=== PATIENT | male | born 1940 | race Caucasian/White ===

== ENCOUNTER → 2018-03-09 | Outpatient (CLI) | payer MEDICARE, BC ==
--- NOTE | 2018-03-10 17:33 | MR ---
EXAMINATION TYPE: MR shoulder LT wo con DATE OF EXAM: 03/09/2018 COMPARISON: Outside radiographs 02/11/2018 HISTORY: 77-year-old male with left shoulder pain TECHNIQUE: Multiplanar, multisequence imaging of the left shoulder is performed without contrast. FINDINGS: There is some linear intermediate signal within the intracapsular portion of the long head biceps ten don that could represent interstitial tear or tendinosis. The extracapsular portion remains appropria tely situated along the bicipital groove. Heterogeneity of the subscapularis tendon. The majority of the tendon remains intact. Additional heterogeneous signal both supraspinatus and infraspinatus tendon. There is a full-thickness tear of the mid supraspinatus tendon fibers at the footprint measuring 10 m m long and 11 mm AP. There is fluid interposed within the intervening gap and mild effusion in the donaldson bacromial or subdeltoid bursa as well as a 7 mm loose body within the bursa located below the AC join t level. There is intrasubstance change within the infraspinatus tendon. No significant fatty atrophy of the rotator cuff musculature. There is moderate to severe degenerative joint space narrowing with marginal spurring at the acromial clavicular joint. Inferior spurring mildly encroaches onto the subacromial space. Evaluation of the glenohumeral joint is some degenerative blunting of the superior labrum. There is m [id number] cartilage thinning along the superior humeral head articular surface without signific ant joint effusion. No Hill-Sachs deformity or os acromiale. Bony irregularity at both greater and lesser tuberosities compatible with chronic tendinosis and trac tion-related changes. No suspicious bone marrow replacement. IMPRESSION: 1. Nonretracted full-thickness tear of the mid supraspinatus tendon at the footprint measuring 11 x 1 0 mm. 2. Intrasubstance change involving the infraspinatus tendon and extensive tendinosis of the subscapul mariia tendon. No additional high-grade partial or full-thickness tear is seen. 3. No rotator cuff muscle atrophy. 4. Moderate to severe AC joint OA, mild GH joint OA, and a mild bursal effusion with a small 7 mm sup erior loose body. 4. Small interstitial tear vs tendinosis of the intracapsular long head biceps tendon.
== END | disposition home or self-care (01) ==
LOC: RADMRIMAIN 13:11
PROVIDERS: ATTEND Orthopaedic Surgery
DX: M75.122 Complete rotator cuff tear or rupture of left shoulder, not specified as traumatic (principal); M75.82 Other shoulder lesions, left shoulder; M19.012 Primary osteoarthritis, left shoulder

== ENCOUNTER 2018-04-26 10:04 | Day surgery (SDC) | payer MEDICARE, BC ==
[2018-04-19 15:53] VITALS: BMI 22.4
--- NOTE | 2018-04-25 11:24 | HP ---
HISTORY AND PHYSICAL REASON FOR ADMISSION: Surgery scheduled for 04/26/2018 Cornelius eLvy is a 77-year-old patient seen with progressive left shoulder pain. We discussed treatment options. He elected to proceed with left shoulder arthroscopy. Consent regarding the procedure was obtained. Medical clearance was provided by Dr. Molina. PAST MEDICAL HISTORY: [id number] diabetes. SURGICAL HISTORY: Noncontributory. MEDICATIONS: Metformin, Xarelto. ALLERGIES: None reported. SOCIAL HISTORY: Patient denies current tobacco use. PHYSICAL EXAMINATION: Evaluation of the left shoulder, flexion 90 degrees, abduction 75 degrees, external rotation is 10 degrees with weakness. Tenderness along the anterior lateral acromion rotator cuff insertion site. Impingement sign positive at 80 degrees. Drop-arm sign positive. Distal neurovascular exam intact. RADIOGRAPHS: Left shoulder revealed type 2 anterior acromion acromioclavicular joint osteoarthritis and cystic changes of the greater tuberosity. MRI left shoulder rotator cuff tear, biceps tendinitis, acromioclavicular joint osteoarthritis. IMPRESSION: 1. Left shoulder impingement with rotator cuff tear. 2. Left shoulder acromioclavicular joint osteoarthritis. PLAN: Left shoulder arthroscopy with subacromial decompression, probable arthroscopic rotator cuff repair, probable Zoe procedure, biceps tenotomy and debridement. Surgery scheduled for 04/26/2018 MMODL / IJN: [id number] /
[~2018-04-26 10:04] MED LIST: DEXAMETHASONE SOD PHOSPHATE 10 MG/ML 1 ML VIAL IV ONE; LACTATED RINGERS 1,000 ML IV SCH; MIDAZOLAM 2 MG/2 ML VIAL IV PRN; ONDANSETRON 4 MG/2 ML VIAL IVP ONE; ceFAZolin IN SWFI 2 GM/20 ML SYRINGE IVP ONE
[2018-04-26] MEDS ORDERED: LIDOCAINE 1% 20 ML VIAL (10MG/ML) FOR IV START INTRADERMA ONE (10:38)
[2018-04-26 10:54] LABS: Glucose,Whole Blood 136 mg/dL (75-99)
[2018-04-26] MEDS ORDERED: hydrALAZINE HCL 20 MG/ML 1 ML VIAL ONE (11:19)
[2018-04-26] MEDS ORDERED: PROPOFOL 10 MG/ML 20 ML VIAL IV ONE (11:19)
[2018-04-26] MEDS ORDERED: fentaNYL (PF) 50 MCG/ML 2 ML AMP ONE (11:19)
[2018-04-26] MEDS ORDERED: LIDOCAINE 1% INJ 10MG/ML (20 ML MDV) ONE (11:19)
[2018-04-26] MEDS ORDERED: MIDAZOLAM 2 MG/2 ML VIAL ONE (11:19)
[2018-04-26] MEDS ORDERED: ROPIVACAINE 5 MG/ML 30 ML VIAL ONE (11:19)
[2018-04-26] MEDS ORDERED: ePHEDrine SULFATE/0.9% NACL/PF 50 MG/5 ML SYRINGE IV ONE (11:19)
--- NOTE | 2018-04-26 13:14 | P.OP ---
Date of Procedure: 04/26/18 Preoperative Diagnosis: Left shoulder impingement Postoperative Diagnosis: 1. Left shoulder rotator cuff tear 2. Left shoulder impingement 3. Left shoulder acromioclavicular joint osteoarthritis 4. Left shoulder partial long head biceps tendon tear 5. Left shoulder superior labral tear 6. Left shoulder intra-articular loose body Procedure(s) Performed: 1. Left shoulder arthroscopic rotator cuff repair 2. Left shoulder arthroscopic subacromial decompression 3. Left shoulder arthroscopic Zoe procedure 4. Left shoulder arthroscopic biceps tenotomy 5. Left shoulder arthroscopic debridement labral tear 6. Left shoulder arthroscopic removal loose body Implants: 44.75 Arthrex swivel lock anchors Anesthesia: GETA, regional (Interscalene block) Surgeon: Baljeet Moss [employer] Mechanic #1: Enrique Monet Estimated Blood Loss (ml): 10 Pathology: none sent Condition: stable Disposition: PACU Indications for Procedure: 77-year-old patient seen with progressive left shoulder pain. After having treatment options discussed, he elected to proceed with arthroscopy. Operative Findings: See description of procedure Description of Procedure: Patient underwent an interscalene block by department of anesthesia. The patient was then taken to the operative suite. The patient underwent a general anesthetic by the department of anesthesia. The patient was placed into a lateral position and secured. There was appropriate padding of the bony prominence. Left shoulder was then prepped and draped in normal sterile orthopedic fashion. We placed the extremity in 10 pounds of longitudinal traction. A posterior incision was now made for a posterior working portal site. The trocar and cannula were inserted into the glenohumeral joint. Arthroscopy was initiated. Spinal needle was now inserted anteriorly, to ascertain the anterior working portal site. An incision was now made in that area, a trocar was inserted followed by a probe. There was superficial tearing noted of the superior labrum. There was partial tearing and hyperemia long head biceps tendon. There was no obvious full-thickness rotator cuff tear visualized from glenohumeral side. At this point I noted a loose body. A loose body forceps was introduced and this was removed without difficulty. I performed an arthroscopic biceps tenotomy. I debrided that labral tear down to stable tissue. The residual labrum appeared stable. Instruments were now removed from the glenohumeral joint. Utilizing the posterior working portal site, the trocar and cannula were inserted into the subacromial space. Arthroscopy initiated. I made an incision 2 fingerbreadths lateral to the acromion. I introduced my trocar followed by my ArthroCare ablator. I now began ablating thick subacromial bursal tissue, which exposed the undersurface of the anterior acromion. There was diminished subacromial space. There was a very prominent anterior acromion. A motorized bur was introduced and a subacromial decompression was performed. I also excised some osteophytes off the inferior aspect of the distal clavicle. The AC joint was visualized and noted to be fairly arthritic. The motorized bur was introduced in the anterior portal site and a Zoe procedure was performed without difficulty, decompressing the AC joint nicely. I turned my attention to the rotator cuff. There was a 2.5 cm rotator cuff tear. I debrided the margins getting down to stable tendon tissue. I introduced my motorized bur and abraded the footprint area, getting some petechial bleeding. I now made an accessory portal site off the lateral aspect of the acromion. I punched two holes medial for medial row fixation with the assistance of Hesham GASTON carefully tapping the punch with a mallet as I held the punch and the camera. I now introduced both anchors into the pre-punched holes and Hesham GASTON tapped them with the mallet as I held anchors and the camera. Hesham GASTON now screwed the anchors in place a while I held the anchor guide and camera. All 8 limbs of suture were now passed through good bites of rotator cuff tendon. I now punched 2 holes for lateral row fixation again I held the punch and camera while Hesham GASTON used a mallet to tap in the punch. We now passed sutures through both anchors and individually I introduced the anchors into the pre-punch holes I held the anchor guide in position with one hand holding the camera with the other hand while Hesham GASTON tensioned the sutures and screwed in the anchors one at a time. All residual suture limbs were now clipped. We had good compression of the tendon along the entire footprint. I injected 1 mL Renue intra-articular. Instruments now removed from the portal sites. All portal sites were approximated with nylon suture. Sterile dressings were applied followed by a shoulder immobilizer. Hesham GASTON assisted in this complex case. The patient was awakened, transferred to a bed, and taken to recovery in stable condition.
[2018-04-26 13:21] VITALS: TEMP 98
[2018-04-26 13:31] LABS: Glucose,Whole Blood 166 mg/dL (75-99)
[2018-04-26] MEDS: HYDROmorphone 0.5 MG/0.5 ML SYRINGE IVP PRN ×4 (13:53→14:30)
[2018-04-26] MEDS ORDERED: ONDANSETRON 4 MG/2 ML VIAL IVP ONE (14:03)
[2018-04-26] MEDS: fentaNYL (PF) 50 MCG/ML 2 ML AMP IV ONE ×2 (14:40→14:50)
--- NOTE | 2018-04-26 14:46 | P.ONQ ---
Anesthesiology Proc Note - PNB - Peripheral Nerve Block Performed Left Interscalene Single Time Out Performed: Yes Procedure Start Time: :04 Procedure Stop Time: :07 Indication: Acute Post-Operative Pain, Requested by physician Sedation Type: Sedate with meaningful contact maintained Preparation: Sterile Prep Position: Supine Needle Size: 50mm (2") Needle Gauge: 21 Technique: Ultrasound Injectate: 0.5% Ropivacaine (see comment for volume) (ropi .5% 30cc) Blood Aspirated: No Pain Paresthesia on Injection Noted: No Resistance on Injection: Normal Events: Uneventful and Well Tolerated
[2018-04-26] MEDS ORDERED: METOCLOPRAMIDE 5 MG/ML 2 ML VIAL IVP ONE (15:00)
[2018-04-26 15:23] VITALS: RESP 18
[2018-04-26] MEDS ORDERED: SCOPOLAMINE 1.5MG/72HR PATCH TRANSDERM ONE (15:25)
[2018-04-26 16:52] VITALS: BP 157/69; PULSE 80
== END 2018-04-26 17:35 | disposition home or self-care (01) ==
LOC: OR 10:04
PROVIDERS: ATTEND Orthopaedic Surgery
DX: M75.102 Unspecified rotator cuff tear or rupture of left shoulder, not specified as traumatic (principal); M75.42 Impingement syndrome of left shoulder; M19.012 Primary osteoarthritis, left shoulder; S46.112A Strain of muscle, fascia and tendon of long head of biceps, left arm, initial encounter; X58.XXXA Exposure to other specified factors, initial encounter; S43.432A Superior glenoid labrum lesion of left shoulder, initial encounter; M24.012 Loose body in left shoulder; M25.712 Osteophyte, left shoulder; E11.9 Type 2 diabetes mellitus without complications; Z87.891 Personal history of nicotine dependence; Z79.01 Long term (current) use of anticoagulants; Z79.84 Long term (current) use of oral hypoglycemic drugs; Z79.82 Long term (current) use of aspirin; Z88.5 Allergy status to narcotic agent
CPT/HCPCS: 64415; 29826; 29827; 29824; C1713; C1894; C1765; J2250; J0360; J1100; J2765; J2405; J2001; J3010; J2795; J2704; J1170; J0690

== ENCOUNTER 2018-09-02 16:10 | Inpatient (IN) | payer MEDICARE, BC ==
[2018-09-02] MEDS ORDERED: ASPIRIN 325 MG TAB PO STA (17:25)
[2018-09-02] MEDS ORDERED: NITROGLYCERIN OINT 1 INCH/GM PACKET TOPICAL STA (17:25)
[2018-09-02 17:48] LABS: Basophils % (A) 1 %; Eosinophils # (A) 0.1 k/uL (0-0.7); Eosinophils % (A) 2 %; HCT 42.6 % (39.0-53.0); HGB 14.1 gm/dL (13.0-17.5); Lymphocytes # (A) 1.4 k/uL (1.0-4.8); Lymphocytes % (A) 26 %; MCH 30.9 pg (25.0-35.0); MCHC 33.1 g/dL (31.0-37.0); MCV 93.4 fL (80.0-100.0); Mean Platelet Volume 6.9; Monocytes # (A) 0.4 k/uL (0-1.0); Monocytes % (A) 8 %; Neutrophils # (A) 3.3 k/uL (1.3-7.7); Neutrophils % (A) 61 %; Platelet Count 175 k/uL (150-450); RBC 4.56 m/uL (4.30-5.90); RDW 13.7 % (11.5-15.5); WBC 5.4 k/uL (3.8-10.6)
[2018-09-02 17:49] LABS: INR 1.2 (<1.2); Partial Thromboplastin Time 31.2 sec (22.0-30.0); Prothrombin Time 12.4 sec (9.0-12.0)
--- NOTE | 2018-09-02 17:49 | XR ---
EXAMINATION TYPE: XR chest 2V DATE OF EXAM: 09/02/2018 COMPARISON: NONE HISTORY: Chest pain TECHNIQUE: Frontal and lateral views of the chest are obtained. FINDINGS: Heart is normal. Lungs are clear of consolidation. Costophrenic angles are clear. There is no heart failure. There is no pleural effusion. Bony thorax is intact. IMPRESSION: No active cardiopulmonary disease. Normal heart.
[2018-09-02 17:52] LABS: ALT 23 U/L (21-72); AST 18 U/L (17-59); Albumin 3.4 g/dL (3.5-5.0); Alkaline Phosphatase 33 U/L (38-126); Anion Gap 8 mmol/L; Blood Urea Nitrogen 16 mg/dL (9-20); Calcium 8.2 mg/dL (8.4-10.2); Carbon Dioxide 25 mmol/L (22-30); Chloride 110 mmol/L (98-107); Glucose 124 mg/dL (74-99); Magnesium 1.8 mg/dL (1.6-2.3); Potassium 3.7 mmol/L (3.5-5.1); Sodium 143 mmol/L (137-145); Total Bilirubin 0.3 mg/dL (0.2-1.3); Total Protein 6.1 g/dL (6.3-8.2)
[2018-09-02 17:56] LABS: Creatine Kinase 261 U/L (55-170)
[2018-09-02 18:07] LABS: Creatine Kinase MB 0.7 ng/mL (0.0-2.4); Troponin I <0.012 ng/mL (0.000-0.034)
[2018-09-02] MEDS ORDERED: NALOXONE 0.4 MG/ML 1 ML VIAL IV PRN (18:21)
--- NOTE | 2018-09-02 18:32 | ED ---
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 Pain is exertional, relieved by rest. Is associated with some nausea, no vomiting. Patient states the intensity and frequency is increased over the past week. He was sent in for evaluation and planned heart catheterization tomorrow morning. Patient denies any chest pain at the time my evaluation, no symptoms. He has remote history of tobacco, not currently smoking. No known history of coronary artery disease. - Related Data Home Medications Medication Instructions Recorded Confirmed Rivaroxaban [Xarelto] 20 mg PO AC-LUNCH 03/27/14 09/02/18 metFORMIN HCL 500 mg PO BID 12/11/14 09/02/18 Artificial Tears-Hypromellose 1 - 2 drops BOTH EYES DAILY PRN 09/02/18 09/02/18 [Artificial Tear Drops] Aspirin EC [Ecotrin Low Dose] 81 mg PO AC-LUNCH 09/02/18 09/02/18 Allergies Allergy/AdvReac Type Severity Reaction Status Date / Time codeine AdvReac Nausea & Verified 09/02/18 16:44 Vomiting Review of Systems ROS Statement: Those systems with pertinent positive or pertinent negative responses have been documented in the HPI. ROS Other: All systems not noted in ROS Statement are negative. Past Medical History Past Medical History: Cancer, Diabetes Mellitus, Deep Vein Thrombosis (DVT), Osteoarthritis (OA), Sleep Apnea/CPAP/BIPAP Additional Past Medical History / Comment(s): hx basal cell skin cancer, bone spurs in lt shoulder History of Any Multi-Drug Resistant Organisms: None Reported Past Surgical History: Orthopedic Surgery Additional Past Surgical History / Comment(s): left foot surgery. bilateral cataract surgery. gum surgery. hx. of removal of 3 fungal toenails Past Anesthesia/Blood Transfusion Reactions: No Reported Reaction Past Psychological History: No Psychological Hx Reported Smoking Status: Former smoker - Past Family History Mother Family Medical History: No Reported History General Exam Limitations: no limitations General appearance: alert, in no apparent distress Head exam: Present: atraumatic, normocephalic Eye exam: Present: normal appearance, PERRL ENT exam: Present: normal exam Neck exam: Present: normal inspection. Absent: tenderness, meningismus Respiratory exam: Present: normal lung sounds bilaterally. Absent: respiratory distress, wheezes Cardiovascular Exam: Present: regular rate, normal rhythm GI/Abdominal exam: Present: soft. Absent: distended, tenderness Extremities exam: Present: normal inspection, full ROM, normal capillary refill. Absent: pedal edema Neurological exam: Present: alert, oriented X3 Psychiatric exam: Present: normal affect, normal mood Skin exam: Present: warm, dry, intact. Absent: cyanosis, diaphoretic Course Vital Signs 09/02/18 09/02/18 09/02/18 16:29 17:00 17:26 Temperature 97.5 F L 97.6 F Pulse Rate 61 61 60 Respiratory 18 18 16 Rate Blood Pressure 151/66 143/87 O2 Sat by Pulse 99 99 97 Oximetry 09/02/18 18:00 Temperature Pulse Rate 62 Respiratory 18 Rate Blood Pressure 143/87 O2 Sat by Pulse 97 Oximetry EKG Findings - EKG Comments: EKG Findings:: EKG: Normal sinus rhythm, rate is 60, TX interval 172, QRS duration 110, QTC 400, no ST segment elevation, there is biphasic T wave in V2. T wave inversion in aVL. Medical Decision Making - Medical Decision Making 77-year-old male presenting with exertional chest pain, sent in from the binder and wrapper packer's office for evaluation and heart cath in the morning. Patient is asymptomatic at the time my evaluation. Laboratory studies reveal normal CBC, normal CMP, negative troponin. He is anticoagulated from his normal home medications for history of DVT. I did speak with Dr. Hood his binder and wrapper packer, recommends Nitropaste, aspirin, and will proceed with heart catheterization in the morning. Patient will be admitted to a monitored bed, serial cardiac enzymes obtained. Case is also discussed with admitting physician who will accept. - Lab Data Result diagrams: 09/02/18 17:19 09/02/18 17:19 Lab Results 09/02/18 09/02/18 09/02/18 Range/Units 17:19 17:19 17:19 WBC 5.4 (3.8-10.6) k/uL RBC 4.56 (4.30-5.90) m/uL Hgb 14.1 (13.0-17.5) gm/dL Hct 42.6 (39.0-53.0) % MCV 93.4 (80.0-100.0) fL MCH 30.9 (25.0-35.0) pg MCHC 33.1 (31.0-37.0) g/dL RDW 13.7 (11.5-15.5) % Plt Count 175 (150-450) k/uL Neutrophils % 61 % Lymphocytes % 26 % Monocytes % 8 % Eosinophils % 2 % Basophils % 1 % Neutrophils # 3.3 (1.3-7.7) k/uL Lymphocytes # 1.4 (1.0-4.8) k/uL Monocytes # 0.4 (0-1.0) k/uL Eosinophils # 0.1 (0-0.7) k/uL Basophils # 0.0 (0-0.2) k/uL PT (9.0-12.0) sec INR (<1.2) APTT (22.0-30.0) sec Sodium 143 (137-145) mmol/L Potassium 3.7 (3.5-5.1) mmol/L Chloride 110 H (98-107) mmol/L Carbon Dioxide 25 (22-30) mmol/L Anion Gap 8 mmol/L BUN 16 (9-20) mg/dL Creatinine 0.77 (0.66-1.25) mg/dL Est GFR (CKD-EPI)AfAm >90 (>60 ml/min/1.73 sqM) Est GFR (CKD-EPI)NonAf 88 (>60 ml/min/1.73 sqM) Glucose 124 H (74-99) mg/dL Calcium 8.2 L (8.4-10.2) mg/dL Magnesium 1.8 (1.6-2.3) mg/dL Total Bilirubin 0.3 (0.2-1.3) mg/dL AST 18 (17-59) U/L ALT 23 (21-72) U/L Alkaline Phosphatase 33 L (38-126) U/L Total Creatine Kinase 261 H (55-170) U/L CK-MB (CK-2) 0.7 (0.0-2.4) ng/mL CK-MB (CK-2) Rel Index 0.3 Troponin I <0.012 (0.000-0.034) ng/mL NT-Pro-B Natriuret Pep pg/mL Total Protein 6.1 L (6.3-8.2) g/dL Albumin 3.4 L (3.5-5.0) g/dL 09/02/18 09/02/18 Range/Units 17:19 17:19 WBC (3.8-10.6) k/uL RBC (4.30-5.90) m/uL Hgb (13.0-17.5) gm/dL Hct (39.0-53.0) % MCV (80.0-100.0) fL MCH (25.0-35.0) pg MCHC (31.0-37.0) g/dL RDW (11.5-15.5) % Plt Count (150-450) k/uL Neutrophils % % Lymphocytes % % Monocytes % % Eosinophils % % Basophils % % Neutrophils # (1.3-7.7) k/uL Lymphocytes # (1.0-4.8) k/uL Monocytes # (0-1.0) k/uL Eosinophils # (0-0.7) k/uL Basophils # (0-0.2) k/uL PT 12.4 H (9.0-12.0) sec INR 1.2 H (<1.2) APTT 31.2 H (22.0-30.0) sec Sodium (137-145) mmol/L Potassium (3.5-5.1) mmol/L Chloride (98-107) mmol/L Carbon Dioxide (22-30) mmol/L Anion Gap mmol/L BUN (9-20) mg/dL Creatinine (0.66-1.25) mg/dL Est GFR (CKD-EPI)AfAm (>60 ml/min/1.73 sqM) Est GFR (CKD-EPI)NonAf (>60 ml/min/1.73 sqM) Glucose (74-99) mg/dL Calcium (8.4-10.2) mg/dL Magnesium (1.6-2.3) mg/dL Total Bilirubin (0.2-1.3) mg/dL AST (17-59) U/L ALT (21-72) U/L Alkaline Phosphatase (38-126) U/L Total Creatine Kinase (55-170) U/L CK-MB (CK-2) (0.0-2.4) ng/mL CK-MB (CK-2) Rel Index Troponin I (0.000-0.034) ng/mL NT-Pro-B Natriuret Pep 79 pg/mL Total Protein (6.3-8.2) g/dL Albumin (3.5-5.0) g/dL Disposition Clinical Impression: Chest pain, Unstable angina pectoris Disposition: ADMITTED IP TO THIS [facility] Condition: Stable Is patient prescribed a controlled substance at d/c from ED?: No Referrals: Herman Molina MD [Primary Care Provider] - 1-2 days Decision to Admit Reason: Admit from EC Decision Date: 09/02/18 Decision Time: 18:31
[2018-09-02] MEDS: 0.9% NACL WITH KCL 20 MEQ/L 1,000 ML IV SCH (21:21)
[2018-09-03 00:19] LABS: Creatine Kinase 221 U/L (55-170)
[2018-09-03 00:30] LABS: Creatine Kinase MB 0.5 ng/mL (0.0-2.4); Troponin I <0.012 ng/mL (0.000-0.034)
[2018-09-03 06:10] LABS: Creatine Kinase 217 U/L (55-170)
[2018-09-03 06:23] LABS: Creatine Kinase MB 0.4 ng/mL (0.0-2.4); Troponin I <0.012 ng/mL (0.000-0.034)
[2018-09-03 06:39] LABS: Glucose,Whole Blood 121 mg/dL (75-99)
[2018-09-03] MEDS ORDERED: LIDOCAINE 1% INJ 10MG/ML (20 ML MDV) ONE (07:19)
[2018-09-03] MEDS ORDERED: fentaNYL (PF) 50 MCG/ML 2 ML AMP ONE (07:46)
[2018-09-03] MEDS ORDERED: MIDAZOLAM 2 MG/2 ML VIAL IV ONE (07:50)
[2018-09-03] MEDS ORDERED: SODIUM CHLORIDE 0.9% 500 ML 500 ML IV ONE (07:50)
[2018-09-03] MEDS ORDERED: LIDOCAINE 1% INJ 10MG/ML (20 ML MDV) SQ ONE (07:52)
[2018-09-03] MEDS ORDERED: IOPAMIDOL-370 125ML BTL INJ ONE (08:14)
[2018-09-03] MEDS ORDERED: IOPAMIDOL-370 50ML BTL INJ ONE (08:14)
[2018-09-03] MEDS ORDERED: RX INFO: IV CONTRAST WAS GIVEN 1 EACH MISC MISCELLANE PRN (08:15)
--- NOTE | 2018-09-03 08:51 | CC ---
CARDIAC CATHETERIZATION REPORT Referring physician is Dr. Molina. INDICATION: Unstable angina. This is a 77-year-old gentleman who presented to my office yesterday complaining of intermittent episodes of precordial chest pressure that was new onset. Had some EKG changes. I admitted him to hospital for unstable angina and advised him to undergo cardiac catheterization. PROCEDURE NOTE: After obtaining informed consent, left heart catheterization and coronary angiogram are performed via the right femoral artery using standard Prasad catheters. The patient tolerated the procedure well without any obvious immediate complications. A femoral angiogram was performed and Angio-Seal will be deployed for hemostasis. Patient received moderate conscious sedation and total sedation time was 16 minutes. FINDINGS: 1. HEMODYNAMICS: Left ventricular end-diastolic pressure is 13 to 14 mm. There is no significant gradient across the aortic valve. 2. LEFT VENTRICULOGRAM: Left ventriculogram is performed in CACERES position and shows normal left ventricular size, wall motion and systolic function with an ejection fraction of 75%. 3. ANGIOGRAPHIC DATA: Left Main Coronary Artery: Left main coronary artery is a normal-sized vessel appears calcified but is free of significant stenosis. Divides into left anterior descending coronary artery and circumflex coronary artery. LAD shows a long segment of stenosis in the ostial portion at its worse it seems to be a 99% stenosis. The vessel seemed to be like a thread right at its origin from the left main. Circumflex coronary artery is a large dominant vessel that shows mild to moderate atherosclerotic plaque in its proximal part. Right coronary artery is a small nondominant vessel and is free of significant disease. CONCLUSIONS: 1. Normal left ventricular systolic function. 2. 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 PLAN: I am going to ask the cardiothoracic surgeon, to evaluate the patient for bypass surgery with DAVE to LAD and the venous graft to the diagonal. I do not believe the circulation is significant enough to be bypassed. I am going to let the surgeon assess the vessel. If the patient is not to undergo bypass surgery on this admission, we will have to resume the Xarelto that he takes for DVT. If he is going to go through it, then I am going to start him on IV heparin. MMODL / IJN: [id number] /
[2018-09-03 08:56] LABS: Cholesterol 130 mg/dL (<200); HDL Cholesterol 35 mg/dL (40-60); LDL Cholesterol,Calculated 81 mg/dL (0-99); Triglycerides 72 mg/dL (<150)
[2018-09-03] MEDS ORDERED: ASPIRIN 325 MG TAB PO SCH (09:00)
[2018-09-03] MEDS: LISINOPRIL 10 MG TAB PO SCH (10:52)
[2018-09-03] MEDS: ATORVASTATIN 80 MG TAB PO SCH (10:52)
[2018-09-03] MEDS: METOPROLOL SUCCINATE (ER) 25 MG TAB.ER.24H PO SCH (10:52)
--- NOTE | 2018-09-03 11:12 | ECHOF ---
Referral Reason: MEASUREMENTS -------- HEIGHT: 177.8 cm WEIGHT: 74.4 kg BP: 164/84 IVSd: 1.0 cm (0.6 - 1.1) LVIDd: 3.7 cm (3.9 - 5.3) LVPWd: 1.4 cm (0.6 - 1.1) IVSs: 1.7 cm LVIDs: 1.7 cm LVPWs: 2.0 cm IVSd: 3.2 cm (0.6 - 1.1) LVIDd: 0.0 cm (3.9 - 5.3) EDV(Teich): 0 ml Ao Diam: 2.7 cm (2.0 - 3.7) AV Cusp: 2.3 cm (1.5 - 2.6) LA Diam: 3.0 cm (2.7 - 3.8) MV EXCURSION: 12.842 mm (> 18.000) MV EF SLOPE: 87 mm/s (70 - 150) EPSS: 0.6 cm MV E Deacon: 0.80 m/s MV DecT: 170 ms MV A Deacon: 0.80 m/s MV E/A Ratio: 1.00 RAP: 5.00 mmHg RVSP: 6.37 mmHg FINDINGS -------- Sinus rhythm. This was a technically good study. The left ventricular size is normal. There is borderline concentric left ventricular hypertrophy. Overall left ventricular systolic function is normal with, an EF between 55 - 60 %. The right ventricle is normal in size and function. The left atrium is normal in size. The right atrium is normal in size. The aortic valve is trileaflet and appears structurally normal. The mitral valve is normal. There is trace mitral regurgitation. Trace tricuspid regurgitation present. The right ventricular systolic pressure, as measured by Dopp ler, is 6.37mmHg. Pulmonic valve appears structurally normal. The aortic root size is normal. Normal inferior vena cava with normal inspiratory collapse consistent with estimated right atrial pre ssure of 5 mmHg. The pericardium is normal. CONCLUSIONS -------- 1. Sinus rhythm. 2. This was a technically good study. 3. The left ventricular size is normal. 4. There is borderline concentric left ventricular hypertrophy. 5. Overall left ventricular systolic function is normal with, an EF between 55 - 60 %. 6. The right ventricle is normal in size and function. 7. The left atrium is normal in size. 8. The right atrium is normal in size. 9. The aortic valve is trileaflet and appears structurally normal. 10. The mitral valve is normal. 11. There is trace mitral regurgitation. 12. Trace tricuspid regurgitation present. 13. The right ventricular systolic pressure, as measured by Doppler, is 6.37mmHg. 14. Pulmonic valve appears structurally normal. 15. The aortic root size is normal. 16. Normal inferior vena cava with normal inspiratory collapse consistent with estimated right atrial pressure of 5 mmHg. 17. The pericardium is normal. ADMISSIONS SPECIALIST: Suzan Aly RDCS
[2018-09-03] MEDS: MUPIROCIN 2% OINT 22 GM TUBE TOPICAL SCH ×2 (11:17→21:00)
[2018-09-03] MEDS ORDERED: HEPARIN SODIUM,PORCINE 5,000 UNIT/ML 1 ML VIAL IV PRN (11:44)
--- NOTE | 2018-09-03 11:53 | P.GSCN ---
<Suzan Pierre - Last Filed: 09/03/18 11:45> History of Present Illness Consult date: 09/03/18 Reason for Consult: Coronary artery disease, surgical recommendations Requesting physician: Temo Hood History of present illness: This is a 77-year-old gentleman who follows with Dr. Molina on an outpatient basis. He has a previous medical history of diabetes mellitus, skin cancer with removal, DVT left lower extremity in 2012 and right lower extremity in 2013 with by workup by Dr. Serrano and initiation of Xarelto, left rotator cuff repair earlier this year, previous tobacco dependence, family history of early coronary artery disease with father being diagnosed at 52 years old, questionable sleep apnea without official diagnosis, and peripheral vascular disease. Apparently over the previous few weeks he has been experiencing exertional chest pain which he describes is dull pain over the left side of his chest without radiation, associated with nausea but no shortness of breath. These episodes have been appearing more frequently, and the patient states on Thursday he had the worst episode ever. The pain does subside on its own with rest. He had an appointment with a Dr. Hood, relayed his symptoms, an EKG was performed in Dr. Hood's office demonstrating sinus rhythm with T-wave inversions in lead aVL, V1, and V2. He was sent to the emergency room by Dr. Hood with the intention of heart catheterization this morning. He was kept on the observation unit. His heart catheterization demonstrated ostial LAD stenosis 99% with no other significant coronary disease. LV gram was completed demonstrating normal left ventricular function with EF 75%. Dr. Francisco from cardiothoracic surgeon was consulted for surgical recommendations. Review of Systems Review of systems was completed and is negative except as noted in the HPI. - Cardiovascular Reports chest pain - Gastrointestinal Reports nausea Past Medical History Past Medical History: Coronary Artery Disease (CAD), Cancer, Diabetes Mellitus, Deep Vein Thrombosis (DVT), Osteoarthritis (OA), Sleep Apnea/CPAP/BIPAP Additional Past Medical History / Comment(s): hx basal cell skin cancer, bone spurs in lt shoulder History of Any Multi-Drug Resistant Organisms: None Reported Past Surgical History: Orthopedic Surgery Additional Past Surgical History / Comment(s): Rotator Cuff Surgery. left foot surgery. bilateral cataract surgery. gum surgery. hx. of removal of 3 fungal toenails Past Anesthesia/Blood Transfusion Reactions: No Reported Reaction Past Psychological History: No Psychological Hx Reported Smoking Status: Former smoker Past Alcohol Use History: None Reported Additional Past Alcohol Use History / Comment(s): smoker 20 years 1ppd quit age 50 Past Drug Use History: None Reported - Past Family History Mother Additional Family Medical History / Comment(s): Mother of a "blood clot" Father Family Medical History: Coronary Artery Disease (CAD) Medications and Allergies Home Medications Medication Instructions Recorded Confirmed Type Rivaroxaban [Xarelto] 20 mg PO AC-LUNCH 03/27/14 09/02/18 History metFORMIN HCL 500 mg PO BID 12/11/14 09/02/18 History Artificial Tears-Hypromellose 1 - 2 drops BOTH EYES DAILY PRN 09/02/18 09/02/18 History [Artificial Tear Drops] Aspirin EC [Ecotrin Low Dose] 81 mg PO AC-LUNCH 09/02/18 09/02/18 History Allergies Allergy/AdvReac Type Severity Reaction Status Date / Time codeine AdvReac Nausea & Verified 09/02/18 16:44 Vomiting Surgical - Exam Vital Signs Temp Pulse Resp BP Pulse Ox 97.5 F L 61 18 151/66 99 09/02/18 16:29 09/02/18 16:29 09/02/18 16:29 09/02/18 16:29 09/02/18 16:29 - General well developed, well nourished, no distress, no pain - Eyes PERRL, normal ocular movement - ENT no hearing loss - Neck no masses, no bruits, trachea midline - Respiratory Lung sounds clear bilaterally, respirations even/non-labored. Currently on room air with oxygen saturation 97%. No chest wall deformities. - Cardiovascular S1/S2 present, no murmurs. Regular rate and rhythm, normal sinus rhythm on telemetry. Palpable peripheral pulses bilaterally, no edema present, no calf pain or tenderness noted. Positive variscosities. - Abdomen Abdomen: soft, non tender, bowel sounds - Genitourinary deferred - Rectum deferred - Integumentary no rash, no growths - Neurologic normal coordination, normal sensation - Musculoskeletal Equal strength bilaterally normal posture - Psychiatric oriented to time, oriented to person, oriented to place, speech is normal, memory intact Results - Labs 09/02/18 17:19 09/02/18 17:19 Abnormal Lab Results - Last 24 Hours (Table) 09/02/18 09/02/18 09/02/18 Range/Units 17:19 17:19 17:19 PT 12.4 H (9.0-12.0) sec INR 1.2 H (<1.2) APTT 31.2 H (22.0-30.0) sec Chloride 110 H (98-107) mmol/L Glucose 124 H (74-99) mg/dL POC Glucose (mg/dL) (75-99) mg/dL Calcium 8.2 L (8.4-10.2) mg/dL Alkaline Phosphatase 33 L (38-126) U/L Total Creatine Kinase 261 H (55-170) U/L Total Protein 6.1 L (6.3-8.2) g/dL Albumin 3.4 L (3.5-5.0) g/dL HDL Cholesterol (40-60) mg/dL 09/02/18 09/03/18 09/03/18 Range/Units 23:06 05:10 06:35 PT (9.0-12.0) sec INR (<1.2) APTT (22.0-30.0) sec Chloride (98-107) mmol/L Glucose (74-99) mg/dL POC Glucose (mg/dL) 121 H (75-99) mg/dL Calcium (8.4-10.2) mg/dL Alkaline Phosphatase (38-126) U/L Total Creatine Kinase 221 H 217 H (55-170) U/L Total Protein (6.3-8.2) g/dL Albumin (3.5-5.0) g/dL HDL Cholesterol (40-60) mg/dL 09/03/18 Range/Units 08:10 PT (9.0-12.0) sec INR (<1.2) APTT (22.0-30.0) sec Chloride (98-107) mmol/L Glucose (74-99) mg/dL POC Glucose (mg/dL) (75-99) mg/dL Calcium (8.4-10.2) mg/dL Alkaline Phosphatase (38-126) U/L Total Creatine Kinase (55-170) U/L Total Protein (6.3-8.2) g/dL Albumin (3.5-5.0) g/dL HDL Cholesterol 35 L (40-60) mg/dL Diabetes panel 09/02/18 09/03/18 Range/Units 17:19 08:10 Sodium 143 (137-145) mmol/L Potassium 3.7 (3.5-5.1) mmol/L Chloride 110 H (98-107) mmol/L Carbon Dioxide 25 (22-30) mmol/L BUN 16 (9-20) mg/dL Creatinine 0.77 (0.66-1.25) mg/dL Glucose 124 H (74-99) mg/dL Calcium 8.2 L (8.4-10.2) mg/dL AST 18 (17-59) U/L ALT 23 (21-72) U/L Alkaline Phosphatase 33 L (38-126) U/L Total Protein 6.1 L (6.3-8.2) g/dL Albumin 3.4 L (3.5-5.0) g/dL Triglycerides 72 (<150) mg/dL HDL Cholesterol 35 L (40-60) mg/dL Calcium panel 09/02/18 Range/Units 17:19 Calcium 8.2 L (8.4-10.2) mg/dL Albumin 3.4 L (3.5-5.0) g/dL Pituitary panel 09/02/18 Range/Units 17:19 Sodium 143 (137-145) mmol/L Potassium 3.7 (3.5-5.1) mmol/L Chloride 110 H (98-107) mmol/L Carbon Dioxide 25 (22-30) mmol/L BUN 16 (9-20) mg/dL Creatinine 0.77 (0.66-1.25) mg/dL Glucose 124 H (74-99) mg/dL Calcium 8.2 L (8.4-10.2) mg/dL Adrenal panel 09/02/18 Range/Units 17:19 Sodium 143 (137-145) mmol/L Potassium 3.7 (3.5-5.1) mmol/L Chloride 110 H (98-107) mmol/L Carbon Dioxide 25 (22-30) mmol/L BUN 16 (9-20) mg/dL Creatinine 0.77 (0.66-1.25) mg/dL Glucose 124 H (74-99) mg/dL Calcium 8.2 L (8.4-10.2) mg/dL Total Bilirubin 0.3 (0.2-1.3) mg/dL AST 18 (17-59) U/L ALT 23 (21-72) U/L Alkaline Phosphatase 33 L (38-126) U/L Total Protein 6.1 L (6.3-8.2) g/dL Albumin 3.4 L (3.5-5.0) g/dL - Imaging Chest x-ray: report reviewed, image reviewed EKG: image reviewed Additional studies: Heart cath films reviewed Assessment and Plan (1) Coronary artery disease Current Visit: Yes Status: Chronic Code(s): I25.10 - ATHSCL HEART DISEASE OF [place] CORONARY ARTERY W/O ANG PCTRS SNOMED Code(s): 79171898 (2) Diabetes mellitus Current Visit: Yes Status: Chronic Code(s): E11.9 - TYPE 2 DIABETES MELLITUS WITHOUT COMPLICATIONS SNOMED Code(s): 02872944 (3) History of skin cancer Current Visit: No Status: Resolved Code(s): Z85.828 - PERSONAL HISTORY OF OTHER MALIGNANT NEOPLASM OF SKIN SNOMED Code(s): 265746530 (4) DVT (deep venous thrombosis) Current Visit: No Status: Resolved Code(s): I82.409 - ACUTE EMBOLISM AND THOMBOS UNSP DEEP VN UNSP LOWER EXTREMITY SNOMED Code(s): 532972746 (5) Chronic anticoagulation Current Visit: Yes Status: Chronic Code(s): Z79.01 - CORRECTION (CURRENT) USE OF ANTICOAGULANTS SNOMED Code(s): 002725751 (6) Family history of premature CAD Current Visit: Yes Status: Chronic Code(s): Z82.49 - FAMILY HX OF ISCHEM HEART DIS AND OTH DIS OF THE CIRC SYS SNOMED Code(s): 484044450 (7) Tobacco dependence in remission Current Visit: No Status: Resolved Code(s): F17.201 - NICOTINE DEPENDENCE, UNSPECIFIED, IN REMISSION SNOMED Code(s): 857153764 (8) Unstable angina pectoris Current Visit: Yes Status: Acute Code(s): I20.0 - UNSTABLE ANGINA SNOMED Code(s): 6854266 Plan: The patient was seen and examined at the bedside with Dr. Francisco. Chart/ diagnostics including catheterization films were reviewed. We offered the patient coronary artery bypass grafting, the usual perioperative course was discussed in detail with the patient and his , all risks and benefits were explained, all questions were answered, and consent was obtained to proceed with surgery. Preoperative testing was initiated. Recommend continuing aspirin , statin, beta marline therapy. Patient will be kept inpatient to allow for Xarelto metabolism, IV heparin to be initiated per cardiology due to high DVT risk. Our plan is for coronary artery bypass graft surgery on September 08 pending results of preoperative testing. This was discussed in detail with Dr. Hood as well as the patient and his , and all are in agreement. More recommendations to follow. Thank you Dr. Hood for this consult. We look forward to working with you in the care of your patient. Time with Patient: Greater than 30 <Bernardo Francisco - Last Filed: 09/07/18 11:34> Surgical - Exam Vital Signs Temp Pulse Resp BP Pulse Ox 97.5 F L 61 18 151/66 99 09/02/18 16:29 09/02/18 16:29 09/02/18 16:29 09/02/18 16:29 09/02/18 16:29 Results - Labs 09/07/18 06:15 09/07/18 06:15 Abnormal Lab Results - Last 24 Hours (Table) 09/06/18 09/06/18 09/06/18 Range/Units 11:32 14:25 16:44 APTT 94.1 H (22.0-30.0) sec Chloride (98-107) mmol/L Glucose (74-99) mg/dL POC Glucose (mg/dL) 125 H 205 H (75-99) mg/dL Total Protein (6.3-8.2) g/dL Albumin (3.5-5.0) g/dL Crossmatch 09/06/18 09/06/18 09/07/18 Range/Units 20:52 21:43 06:15 APTT 80.2 H (22.0-30.0) sec Chloride (98-107) mmol/L Glucose (74-99) mg/dL POC Glucose (mg/dL) 186 H (75-99) mg/dL Total Protein (6.3-8.2) g/dL Albumin (3.5-5.0) g/dL Crossmatch See Detail 09/07/18 09/07/18 09/07/18 Range/Units 06:15 06:15 06:37 APTT 76.8 H (22.0-30.0) sec Chloride 112 H (98-107) mmol/L Glucose 134 H (74-99) mg/dL POC Glucose (mg/dL) 124 H (75-99) mg/dL Total Protein 6.1 L (6.3-8.2) g/dL Albumin 3.4 L (3.5-5.0) g/dL Crossmatch 09/07/18 Range/Units 11:25 APTT (22.0-30.0) sec Chloride (98-107) mmol/L Glucose (74-99) mg/dL POC Glucose (mg/dL) 120 H (75-99) mg/dL Total Protein (6.3-8.2) g/dL Albumin (3.5-5.0) g/dL Crossmatch Diabetes panel 09/07/18 Range/Units 06:15 Sodium 144 (137-145) mmol/L Potassium 4.0 (3.5-5.1) mmol/L Chloride 112 H (98-107) mmol/L Carbon Dioxide 26 (22-30) mmol/L BUN 10 (9-20) mg/dL Creatinine 0.78 (0.66-1.25) mg/dL Glucose 134 H (74-99) mg/dL Calcium 8.6 (8.4-10.2) mg/dL AST 32 (17-59) U/L ALT 39 (21-72) U/L Alkaline Phosphatase 46 (38-126) U/L Total Protein 6.1 L (6.3-8.2) g/dL Albumin 3.4 L (3.5-5.0) g/dL Calcium panel 09/07/18 Range/Units 06:15 Calcium 8.6 (8.4-10.2) mg/dL Albumin 3.4 L (3.5-5.0) g/dL Pituitary panel 09/07/18 Range/Units 06:15 Sodium 144 (137-145) mmol/L Potassium 4.0 (3.5-5.1) mmol/L Chloride 112 H (98-107) mmol/L Carbon Dioxide 26 (22-30) mmol/L BUN 10 (9-20) mg/dL Creatinine 0.78 (0.66-1.25) mg/dL Glucose 134 H (74-99) mg/dL Calcium 8.6 (8.4-10.2) mg/dL Adrenal panel 09/07/18 Range/Units 06:15 Sodium 144 (137-145) mmol/L Potassium 4.0 (3.5-5.1) mmol/L Chloride 112 H (98-107) mmol/L Carbon Dioxide 26 (22-30) mmol/L BUN 10 (9-20) mg/dL Creatinine 0.78 (0.66-1.25) mg/dL Glucose 134 H (74-99) mg/dL Calcium 8.6 (8.4-10.2) mg/dL Total Bilirubin 0.6 (0.2-1.3) mg/dL AST 32 (17-59) U/L ALT 39 (21-72) U/L Alkaline Phosphatase 46 (38-126) U/L Total Protein 6.1 L (6.3-8.2) g/dL Albumin 3.4 L (3.5-5.0) g/dL Assessment and Plan Plan: The patient was seen and examined. I agree with the above assessment and plan. Patient is a 77-year-old male with a history of multiple medical problems including lower extremity DVT on chronic Xarelto who presented to the emergency department with angina. Cardiac catheterization revealed a tight ostial left anterior descending artery lesion. A coronary artery bypass is recommended. The risks, benefits, and alternatives to this procedure were discussed with the patient. All his questions were answered. Given his symptomatology and history , the decision was made to keep the patient in-house on intravenous heparin and to discontinue the Xarelto. His procedure is scheduled for 09/08/2018.
[2018-09-03 11:56] LABS: Glucose,Whole Blood 170 mg/dL (75-99)
--- NOTE | 2018-09-03 12:00 | P.PN ---
Progress Note - Text Cardiac catheterization performed today reveals evidence of 99% ostial LAD stenosis. Dr. Hood has requted he be seen in consultation by cardiac surgery. Dr. Francisco has seen him and made recommendations for bypass surgery. Considering he is on xarelto they recommend waiting 5 days prior to surgical intervention. Xarelto has been held and heparin infusion initiated due to high risk DVT. He is also initiated on insulin siding scale and metformin has been held. Echocardiogram will be obtained and reviewed. Transfer to cardiac step-down unit for ongoing cardiac monitoring until surgery next week possibly Thursday.
[2018-09-03 12:29] LABS: Appearance,Urine Clear (Clear); Bilirubin,Urine Negative (Negative); Blood,Urine Negative (Negative); Color,Urine Yellow; Glucose,Urine (UA) Negative (Negative); Ketones,Urine Negative (Negative); Leukocyte Esterase,Urine Negative (Negative); Nitrite,Urine Negative (Negative); PH, Urine 6.5 (5.0-8.0); Protein,Urine Negative (Negative); Specific Gravity,Urine 1.036 (1.001-1.035); Urobilinogen,Urine <2.0 mg/dL (<2.0)
[2018-09-03 12:58] LABS: INR 0.9 (<1.2); Partial Thromboplastin Time 24.4 sec (22.0-30.0); Prothrombin Time 9.9 sec (9.0-12.0)
[2018-09-03] MEDS: INSULIN ASPART 100 UNIT/ML 1 ML 10 ML VIAL SQ SCH ×3 (13:12→21:00)
[2018-09-03] MEDS: NITROGLYCERIN OINT 1 INCH/GM PACKET TOPICAL SCH ×3 (13:12→23:39)
--- NOTE | 2018-09-03 13:25 | US ---
EXAMINATION TYPE: US carotid duplex BILAT DATE OF EXAM: 09/03/2018 COMPARISON: NONE CLINICAL HISTORY: preop cabg. Pre op cardiac surgery EXAM MEASUREMENTS: RIGHT: Peak Systolic Velocity (PSV) cm/sec ----- Right CCA: 74.3 ----- Right ICA: 108.2 ----- Right ECA: 148.0 ICA/CCA ratio: 1.5 RIGHT: End Diastole cm/sec ----- Right CCA: 11.7 ----- Right ICA: 20.2 ----- Right ECA: 7.4 LEFT: Peak Systolic Velocity (PSV) cm/sec ----- Left CCA: 70.1 ----- Left ICA: 109.4 ----- Left ECA: 135.0 ICA/CCA ratio: 1.6 LEFT: End Diastole cm/sec ----- Left CCA: 12.0 ----- Left ICA: 21.5 ----- Left ECA: 0.0 VERTEBRALS (direction of flow): Right Vertebral: Antegrade Left Vertebral: Antegrade Rhythm: Normal Bilateral intimal thickening, plaque bilateral bulb and proximal ICA, elevated velocities: proximal r ight ECA and proximal left ECA, no significant stenosis. Some turbulent flow may be within the proximal common carotid artery on the left. IMPRESSION: 1. Atheromatous plaquing and intimal thickening without significant flow-limiting stenosis. Criteria for Assigning % of Stenosis / Diameter reduction (Estimation based on the indirect measurements of the internal carotid artery velocities (ICA PSV). 1. Normal (no stenosis)=ICA PSV < 125 cm/s: ratio < 2.0: ICA EDV<40 cm/s. 2. Less than 50% stenosis=ICA PSV < 125 cm/s: ratio < 2.0: ICA EDV<40 cm/s. 3. 50 to 69% stenosis=ICA PSV of 125 to 230 cm/s: ration 2.0 ? 4.0: ICA EDV 40-100 cm/s. 4. Greater than 70% stenosis to near occlusion= ICA PSV > 230 cm/s: ratio > 4.0: ICA EDV > 100 cm/s. 5. Near occlusion= ICA PSV velocities may be low or undetectable: variable ratio and ICA EDV. 6. Total occlusion=unable to detect flow.
[2018-09-03] MEDS: HEPARIN SOD,PORK IN 0.45% NACL 25,000 UNIT in 0.45% NACL 1 250ML.BAG IV SCH (14:44)
[2018-09-03] MEDS ORDERED: ARTIFICIAL TEARS-HYPROMELLOSE DROPS 15 ML BTL BOTH EYES PRN (15:04)
--- NOTE | 2018-09-03 15:05 | P.HPIM ---
History of Present Illness 77-year-old pleasant gentleman came in with complaints of chest pain pressure- like sensation patient appears to have atypical chest pain because of which patient underwent carotid catheterization which showed significant stenosis of LAD to my ejection fraction of around 740%. Patient is chest pain-free at this time patient denied any fever chills nausea vomiting patient denied any lightheadedness. Because of a significant lesion in LAD cardiology is recommending coronary artery bypass grafting cardio thoracic surgery was consulted patient is presently on IV heparin statin, aspirin lisinopril and a beta marline. Review of Systems REVIEW OF SYSTEMS: CONSTITUTIONAL: No fever, no malaise, no fatigue. HEENT: No recent visual problems or hearing problems. Denied any sore throat. CARDIOVASCULAR: No chest pain, orthopnea, PND, no palpitations, no syncope. PULMONARY: No shortness of breath, no cough, no hemoptysis. GASTROINTESTINAL: No diarrhea, no nausea, no vomiting, no abdominal pain. NEUROLOGICAL: No headaches, no weakness, no numbness. HEMATOLOGICAL: Denies any bleeding or petechiae. GENITOURINARY: Denies any burning micturition, frequency, or urgency. MUSCULOSKELETAL/RHEUMATOLOGICAL: Denies any joint pain, swelling, or any muscle pain. ENDOCRINE: Denies any polyuria or polydipsia. The rest of the 14-point review of systems is negative. Past Medical History Past Medical History: Coronary Artery Disease (CAD), Cancer, Diabetes Mellitus, Deep Vein Thrombosis (DVT), Osteoarthritis (OA), Sleep Apnea/CPAP/BIPAP Additional Past Medical History / Comment(s): hx basal cell skin cancer, bone spurs in lt shoulder History of Any Multi-Drug Resistant Organisms: None Reported Past Surgical History: Orthopedic Surgery Additional Past Surgical History / Comment(s): Rotator Cuff Surgery. left foot surgery. bilateral cataract surgery. gum surgery. hx. of removal of 3 fungal toenails Past Anesthesia/Blood Transfusion Reactions: No Reported Reaction Past Psychological History: No Psychological Hx Reported Smoking Status: Former smoker Past Alcohol Use History: None Reported Additional Past Alcohol Use History / Comment(s): smoker 20 years 1ppd quit age 50 Past Drug Use History: None Reported - Past Family History Mother Family Medical History: No Reported History Additional Family Medical History / Comment(s): Mother of a "blood clot" Father Family Medical History: Coronary Artery Disease (CAD) Medications and Allergies Home Medications Medication Instructions Recorded Confirmed Type Rivaroxaban [Xarelto] 20 mg PO AC-LUNCH 03/27/14 09/02/18 History metFORMIN HCL 500 mg PO BID 12/11/14 09/02/18 History Artificial Tears-Hypromellose 1 - 2 drops BOTH EYES DAILY PRN 09/02/18 09/02/18 History [Artificial Tear Drops] Aspirin EC [Ecotrin Low Dose] 81 mg PO AC-LUNCH 09/02/18 09/02/18 History Allergies Allergy/AdvReac Type Severity Reaction Status Date / Time codeine AdvReac Nausea & Verified 09/02/18 16:44 Vomiting Physical Exam Vitals: Vital Signs Temp Pulse Pulse Resp BP BP Pulse Ox 09/03/18 12:00 66 16 09/03/18 11:25 66 163/69 95 09/03/18 10:25 64 161/76 97 09/03/18 09:55 62 155/71 96 09/03/18 09:25 62 167/77 94 L 09/03/18 09:10 70 146/74 95 09/03/18 08:55 70 180/74 95 09/03/18 08:40 97.8 F 55 L 16 149/66 97 09/03/18 08:00 55 L 16 09/03/18 07:15 97.5 F L 56 L 18 119/62 94 L 09/03/18 04:00 61 16 09/03/18 03:53 97.7 F 61 16 132/63 97 09/03/18 00:00 55 L 16 09/02/18 23:35 97.6 F 55 L 16 145/60 98 09/02/18 22:00 64 143/75 96 09/02/18 21:17 66 98 09/02/18 20:00 153/79 09/02/18 19:12 75 16 153/79 98 09/02/18 19:00 64 18 134/68 99 09/02/18 18:00 62 18 143/87 97 09/02/18 17:26 97.6 F 60 16 143/87 97 09/02/18 17:00 61 18 99 09/02/18 16:29 97.5 F L 61 18 151/66 99 Intake and Output 09/02/18 09/03/18 09/03/18 22:59 06:59 14:59 Intake Total 400 250 Balance 400 250 Intake: IV 50 Intake, IV Titration 400 Amount 0.9% NaCl with KCl 20 Meq 400 /l 1,000 ml @ 50 mls/hr IV .Q20H [facility] Rx#: [id number] Other 200 Other: Voiding Method Toilet Weight 75.75 kg 74.5 kg PHYSICAL EXAMINATION: GENERAL: The patient is alert and oriented x3, not in any acute distress. Well developed, well nourished. HEENT: Pupils are round and equally reacting to light. EOMI. No scleral icterus. No conjunctival pallor. Normocephalic, atraumatic. No pharyngeal erythema. No thyromegaly. CARDIOVASCULAR: S1 and S2 present. No murmurs, rubs, or gallops. PULMONARY: Chest is clear to auscultation, no wheezing or crackles. ABDOMEN: Soft, nontender, nondistended, normoactive bowel sounds. No palpable organomegaly. MUSCULOSKELETAL: No joint swelling or deformity. EXTREMITIES: No cyanosis, clubbing, or pedal edema. NEUROLOGICAL: Gross neurological examination did not reveal any focal deficits. SKIN: No rashes. Results CBC & Chem 7: 09/02/18 17:19 09/02/18 17:19 Labs: Abnormal Lab Results - Last 24 Hours (Table) 09/02/18 09/02/18 09/02/18 Range/Units 17:19 17:19 17:19 PT 12.4 H (9.0-12.0) sec INR 1.2 H (<1.2) APTT 31.2 H (22.0-30.0) sec Chloride 110 H (98-107) mmol/L Glucose 124 H (74-99) mg/dL POC Glucose (mg/dL) (75-99) mg/dL Calcium 8.2 L (8.4-10.2) mg/dL Alkaline Phosphatase 33 L (38-126) U/L Total Creatine Kinase 261 H (55-170) U/L Total Protein 6.1 L (6.3-8.2) g/dL Albumin 3.4 L (3.5-5.0) g/dL HDL Cholesterol (40-60) mg/dL Ur Specific [place] (1.001-1.035) 09/02/18 09/03/18 09/03/18 Range/Units 23:06 05:10 06:35 PT (9.0-12.0) sec INR (<1.2) APTT (22.0-30.0) sec Chloride (98-107) mmol/L Glucose (74-99) mg/dL POC Glucose (mg/dL) 121 H (75-99) mg/dL Calcium (8.4-10.2) mg/dL Alkaline Phosphatase (38-126) U/L Total Creatine Kinase 221 H 217 H (55-170) U/L Total Protein (6.3-8.2) g/dL Albumin (3.5-5.0) g/dL HDL Cholesterol (40-60) mg/dL Ur Specific [place] (1.001-1.035) 09/03/18 09/03/18 09/03/18 Range/Units 08:10 11:49 12:00 PT (9.0-12.0) sec INR (<1.2) APTT (22.0-30.0) sec Chloride (98-107) mmol/L Glucose (74-99) mg/dL POC Glucose (mg/dL) 170 H (75-99) mg/dL Calcium (8.4-10.2) mg/dL Alkaline Phosphatase (38-126) U/L Total Creatine Kinase (55-170) U/L Total Protein (6.3-8.2) g/dL Albumin (3.5-5.0) g/dL HDL Cholesterol 35 L (40-60) mg/dL Ur Specific [place] 1.036 H (1.001-1.035) Thrombosis Risk Factor Assmnt - Choose All That Apply Any of the Below Risk Factors Present?: No Other Risk Factors: Yes Each Risk Factor Represents 3 Points: Age 75 years or older, Family history of DVT/PE, History of DVT/PE Other congenital or acquired thrombophilia - If yes, enter type in comment: No Thrombosis Risk Factor Assessment Total Risk Factor Score: 9 Thrombosis Risk Factor Assessment Level: High Risk Assessment and Plan Plan: 1 chest pain unstable angina: 90% stenosis of LAD patient is an above-mentioned medications including heparin will be transferred to [facility] to urinate and patient probably undergo cardiac catheterization on Thursday patient is on Xarelto is being held and patient was started on heparin For diaper diabetes mellitus: Hold off metformin and patient will be understanding scale insulin -History of skin cancer in the past -History of DVT in the past hold off on 0 alto patient will be on heparin as mentioned above -Previous history of nicotine dependence
[2018-09-03 15:59] LABS: Glucose,Whole Blood 148 mg/dL (75-99)
[2018-09-03 16:15] LABS: Basophils % (A) 1 %; Eosinophils # (A) 0.2 k/uL (0-0.7); Eosinophils % (A) 3 %; HCT 41.5 % (39.0-53.0); HGB 13.6 gm/dL (13.0-17.5); Lymphocytes # (A) 1.6 k/uL (1.0-4.8); Lymphocytes % (A) 26 %; MCH 31.3 pg (25.0-35.0); MCHC 32.7 g/dL (31.0-37.0); MCV 95.7 fL (80.0-100.0); Mean Platelet Volume 8.6; Monocytes # (A) 0.5 k/uL (0-1.0); Monocytes % (A) 9 %; Neutrophils # (A) 3.7 k/uL (1.3-7.7); Neutrophils % (A) 61 %; Platelet Count 151 k/uL (150-450); RBC 4.34 m/uL (4.30-5.90); WBC 6.1 k/uL (3.8-10.6)
[2018-09-03 16:20] LABS: Hepatitis A Antibody IgM Non-Reactive (Non-Reactive); Hepatitis B Core IgM Non-Reactive (Non-Reactive)
[2018-09-03 16:20] LABS: Anion Gap 6 mmol/L; Blood Urea Nitrogen 16 mg/dL (9-20); Calcium 8.8 mg/dL (8.4-10.2); Carbon Dioxide 27 mmol/L (22-30); Chloride 109 mmol/L (98-107); Glucose 130 mg/dL (74-99); Potassium 4.2 mmol/L (3.5-5.1); Sodium 142 mmol/L (137-145)
[2018-09-03 17:13] LABS: Hemoglobin A1C 6.5 % (4.0-6.0)
[2018-09-03] MEDS: 0.9% NACL WITH KCL 20 MEQ/L 1,000 ML IV SCH (18:11)
[2018-09-03 20:45] LABS: Glucose,Whole Blood 145 mg/dL (75-99)
[2018-09-04] MEDS: 0.9% NACL WITH KCL 20 MEQ/L 1,000 ML IV SCH ×2 (03:55→23:43)
[2018-09-04 04:06] LABS: Basophils % (A) 1 %; Eosinophils # (A) 0.2 k/uL (0-0.7); Eosinophils % (A) 2 %; HCT 39.7 % (39.0-53.0); HGB 13.3 gm/dL (13.0-17.5); Lymphocytes # (A) 2.1 k/uL (1.0-4.8); Lymphocytes % (A) 30 %; MCH 31.3 pg (25.0-35.0); MCHC 33.6 g/dL (31.0-37.0); MCV 93.3 fL (80.0-100.0); Mean Platelet Volume 6.9; Monocytes # (A) 0.4 k/uL (0-1.0); Monocytes % (A) 6 %; Neutrophils % (A) 59 %; Platelet Count 162 k/uL (150-450); RBC 4.26 m/uL (4.30-5.90); RDW 13.7 % (11.5-15.5); WBC 6.8 k/uL (3.8-10.6)
[2018-09-04 04:32] LABS: Anion Gap 5 mmol/L; Blood Urea Nitrogen 15 mg/dL (9-20); Carbon Dioxide 26 mmol/L (22-30); Chloride 111 mmol/L (98-107); Glucose 125 mg/dL (74-99); Sodium 142 mmol/L (137-145)
[2018-09-04 04:33] LABS: Calcium 9.1 mg/dL (8.4-10.2); Potassium 4.1 mmol/L (3.5-5.1)
[2018-09-04 05:50] LABS: Glucose,Whole Blood 123 mg/dL (75-99)
[2018-09-04] MEDS: NITROGLYCERIN OINT 1 INCH/GM PACKET TOPICAL SCH ×4 (06:32→23:19)
[2018-09-04] MEDS: INSULIN ASPART 100 UNIT/ML 1 ML 10 ML VIAL SQ SCH ×4 (06:32→21:23)
[2018-09-04] MEDS: ATORVASTATIN 80 MG TAB PO SCH (08:11)
[2018-09-04] MEDS: MUPIROCIN 2% OINT 22 GM TUBE TOPICAL SCH ×2 (08:11→21:23)
[2018-09-04] MEDS: METOPROLOL SUCCINATE (ER) 25 MG TAB.ER.24H PO SCH (08:12)
[2018-09-04] MEDS: ASPIRIN 81 MG PO SCH (08:12)
[2018-09-04] MEDS: LISINOPRIL 10 MG TAB PO SCH (08:12)
--- NOTE | 2018-09-04 09:10 | P.PN ---
Subjective Progress Note Date: 09/04/18 Principal diagnosis: Coronary artery disease with ostial LAD stenosis 99%. Previous medical history of diabetes with the preoperative FEV1 6.5%, skin cancer with removal, DVT left lower extremity in 2012 and right lower extremity in 2013 on chronic Xarelto for anticoagulation, recent left rotator cuff repair, previous tobacco dependence, mild COPD with preoperative FEV1 67% of predicted, questionable sleep apnea without official diagnosis, peripheral vascular disease, and family history of early coronary artery disease with father diagnosed at 52 years old. The patient is currently sitting up in bed in no acute distress. Did complain of brief episode of chest pain after pulmonary function test completed, resolved without intervention. Currently denies pain or shortness of breath. Ambulating in room. No new questions or concerns. Objective - Vital Signs Vital signs: Vital Signs Temp 97.8 F 09/04/18 08:10 Pulse 71 09/04/18 08:10 Resp 20 09/04/18 08:10 BP 134/74 09/04/18 08:10 Pulse Ox 95 09/04/18 08:10 Intake & Output 09/03/18 09/04/18 09/04/18 18:59 06:59 18:59 Intake Total 550 1136.748 Balance 550 1136.748 Weight 73.8 kg Intake: IV 50 100 0.9% NaCl with KCl 20 Meq 100 /l 1,000 ml @ 50 mls/hr IV .Q20H [facility] Rx#: [id number] Intake, IV Titration 1036.748 Amount 0.9% NaCl with KCl 20 Meq 900 /l 1,000 ml @ 50 mls/hr IV .Q20H [facility] Rx#: [id number] Heparin Sod,Pork in 0.45% 136.748 NaCl 25,000 unit In 0.45 % NaCl 1 250ml.bag @ 12 UNITS/KG/HR 8.94 mls/hr IV .Q24H [facility] Rx#: [id number] Oral 300 Other 200 Other: Voiding Method Toilet Toilet - Constitutional General appearance: Present: cooperative, no acute distress - Respiratory Details: Lungs sounds clear but diminished bilaterally. Respirations even, nonlabored. Currently on room air with oxygen saturation 95%. Able to achieve 3500 mL on his incentive spirometry. - Cardiovascular Details: S1, S2 present. Regular rate and rhythm, sinus rhythm on telemetry. Palpable peripheral pulses bilaterally. No edema present. No calf pain or tenderness noted. - Gastrointestinal Gastrointestinal Comment(s): Abdomen soft, nontender, nondistended. Active bowel sounds present 4 quadrants. Tolerating diet. - Genitourinary Genitourinary Comment(s): Continues to void clear, yellow urine. - Integumentary Integumentary Comment(s): Skin is warm and dry with evidence of good perfusion. - Neurologic Neurologic: Present: CNII-XII intact - Musculoskeletal Musculoskeletal: Present: gait normal, strength equal bilaterally - Psychiatric Psychiatric: Present: A&O x's 3, appropriate affect, intact judgment & insight - Allied health notes Allied health notes reviewed: nursing - Labs CBC & Chem 7: 09/04/18 03:32 09/04/18 03:32 Labs: Abnormal Lab Results - Last 24 Hours (Table) 09/02/18 09/03/18 09/03/18 Range/Units 17:19 05:10 08:10 RBC (4.30-5.90) m/uL APTT (22.0-30.0) sec Chloride 109 H (98-107) mmol/L Glucose 130 H (74-99) mg/dL POC Glucose (mg/dL) (75-99) mg/dL Hemoglobin A1c 6.5 H (4.0-6.0) % HDL Cholesterol 35 L (40-60) mg/dL Ur Specific [place] (1.001-1.035) 09/03/18 09/03/18 09/03/18 Range/Units 11:49 12:00 15:57 RBC (4.30-5.90) m/uL APTT (22.0-30.0) sec Chloride (98-107) mmol/L Glucose (74-99) mg/dL POC Glucose (mg/dL) 170 H 148 H (75-99) mg/dL Hemoglobin A1c (4.0-6.0) % HDL Cholesterol (40-60) mg/dL Ur Specific [place] 1.036 H (1.001-1.035) 09/03/18 09/03/18 09/04/18 Range/Units 20:42 20:55 03:32 RBC 4.26 L (4.30-5.90) m/uL APTT 37.1 H (22.0-30.0) sec Chloride (98-107) mmol/L Glucose (74-99) mg/dL POC Glucose (mg/dL) 145 H (75-99) mg/dL Hemoglobin A1c (4.0-6.0) % HDL Cholesterol (40-60) mg/dL Ur Specific [place] (1.001-1.035) 09/04/18 09/04/18 09/04/18 Range/Units 03:32 03:32 05:48 RBC (4.30-5.90) m/uL APTT 45.7 H (22.0-30.0) sec Chloride 111 H (98-107) mmol/L Glucose 125 H (74-99) mg/dL POC Glucose (mg/dL) 123 H (75-99) mg/dL Hemoglobin A1c (4.0-6.0) % HDL Cholesterol (40-60) mg/dL Ur Specific [place] (1.001-1.035) Microbiology - Last 24 Hours (Table) 09/03/18 12:00 Urine Culture - Preliminary Urine,Voided 09/03/18 11:07 Nasal Screen MRSA/MSSA - Preliminary Nasal Swab - Imaging and Cardiology Results of carotids, echo reviewed. Assessment and Plan (1) Coronary artery disease Current Visit: Yes Status: Chronic Code(s): I25.10 - ATHSCL HEART DISEASE OF [place] CORONARY ARTERY W/O ANG PCTRS SNOMED Code(s): 45094102 (2) Diabetes mellitus Current Visit: Yes Status: Chronic Code(s): E11.9 - TYPE 2 DIABETES MELLITUS WITHOUT COMPLICATIONS SNOMED Code(s): 99727931 (3) History of skin cancer Current Visit: No Status: Resolved Code(s): Z85.828 - PERSONAL HISTORY OF OTHER MALIGNANT NEOPLASM OF SKIN SNOMED Code(s): 818521214 (4) DVT (deep venous thrombosis) Current Visit: No Status: Resolved Code(s): I82.409 - ACUTE EMBOLISM AND THOMBOS UNSP DEEP VN UNSP LOWER EXTREMITY SNOMED Code(s): 208913367 (5) Chronic anticoagulation Current Visit: Yes Status: Chronic Code(s): Z79.01 - NURSING HOME (CURRENT) USE OF ANTICOAGULANTS SNOMED Code(s): 039944378 (6) Family history of premature CAD Current Visit: Yes Status: Chronic Code(s): Z82.49 - FAMILY HX OF ISCHEM HEART DIS AND OTH DIS OF THE CIRC SYS SNOMED Code(s): 956287353 (7) Tobacco dependence in remission Current Visit: No Status: Resolved Code(s): F17.201 - NICOTINE DEPENDENCE, UNSPECIFIED, IN REMISSION SNOMED Code(s): 498424575 (8) Unstable angina pectoris Current Visit: Yes Status: Acute Code(s): I20.0 - UNSTABLE ANGINA SNOMED Code(s): 6628776 Plan: 1. Continue aspirin, statin, beta marline, IV heparin. 2. Plan is for coronary artery bypass graft surgery with Dr. Francisco on ThursdaySeptember 08. 3. Continue to hold Xarelto. Will discontinue KAYLEN inhibitor 48 hours prior to surgery to prevent hypotension intraoperatively. 4. STS risk score calculated and discussed with the patient. 5. Transthoracic echocardiogram demonstrated normal left ventricular function with EF 55-60%, trace mitral regurgitation, and trace tricuspid regurgitation. 6. Carotid Dopplers revealed no significant stenosis bilaterally. 7. 5 m walk completed, #1 5.75 sec, #2 5.43 sec, #3 4.78 sec. 8. Encourage continued incentive spirometry. Activity as tolerated. 9. Continue preoperative teaching. 10. More recommendations to follow. Time with Patient: Greater than 30
[2018-09-04 11:45] LABS: Glucose,Whole Blood 147 mg/dL (75-99)
--- NOTE | 2018-09-04 13:57 | P.CNPUL ---
History of Present Illness Consult date: 09/04/18 Requesting physician: Sunny Hernandez Reason for consult: other (Critical care management post CABG) Chief complaint: Chest pain History of present illness: This is a very pleasant 77-year-old gentleman who follows with Dr. Molina as his primary care physician. 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 He had recently been having episodes of chest discomfort with exertion. Even walking out to his mailbox and back he would have to stop and rest until the pain subsided. He was seen and evaluated by Dr. Hood who directed him here to the emergency room on 09/02/2018. He had subsequently undergone cardiac catheterization and was found to have a 99% stenosis of the ostial portion of the left anterior descending artery. He does have a normal left ventricular systolic function. He was not a stent candidate and has been seen and evaluated by cardiothoracic surgery who are planning to do coronary artery bypass grafting on 09/08/2018. We are consulted for the same. The patient does have a 30 year pack per day smoking history however quit 30 years ago. He denies any history of COPD, emphysema or asthma. He is not utilizing any inhalers or oxygen in the outpatient setting. He has not been seen by a operations trainer in the past. He is seen today in consultation on the selective care unit. He is currently awake and alert in no acute distress. He denies any chest discomfort currently. No shortness of breath, cough or congestion. No dizziness or lightheadedness. He does have preserved left ventricular systolic function with ejection fraction 55-60%. No valvular heart disease. White count 6.8. Hemoglobin 1213.3. Creatinine 0.73. FEV1 value greater than 2 L. Chest x-ray showed no acute cardiopulmonary process. Carotid Dopplers without significant stenosis. Review of Systems 14 point review of system was conducted. All negative other than as mentioned in HPI. Past Medical History Past Medical History: Coronary Artery Disease (CAD), Cancer, Diabetes Mellitus, Deep Vein Thrombosis (DVT), Osteoarthritis (OA), Sleep Apnea/CPAP/BIPAP Additional Past Medical History / Comment(s): hx basal cell skin cancer, bone spurs in lt shoulder History of Any Multi-Drug Resistant Organisms: None Reported Past Surgical History: Orthopedic Surgery Additional Past Surgical History / Comment(s): Rotator Cuff Surgery. left foot surgery. bilateral cataract surgery. gum surgery. hx. of removal of 3 fungal toenails Past Anesthesia/Blood Transfusion Reactions: No Reported Reaction Past Psychological History: No Psychological Hx Reported Smoking Status: Former smoker Past Alcohol Use History: None Reported Additional Past Alcohol Use History / Comment(s): smoker 20 years 1ppd quit age 50 Past Drug Use History: None Reported - Past Family History Mother Family Medical History: No Reported History Additional Family Medical History / Comment(s): Mother of a "blood clot" Father Family Medical History: Coronary Artery Disease (CAD) Medications and Allergies Home Medications Medication Instructions Recorded Confirmed Type Rivaroxaban [Xarelto] 20 mg PO AC-LUNCH 03/27/14 09/02/18 History metFORMIN HCL 500 mg PO BID 12/11/14 09/02/18 History Artificial Tears-Hypromellose 1 - 2 drops BOTH EYES DAILY PRN 09/02/18 09/02/18 History [Artificial Tear Drops] Aspirin EC [Ecotrin Low Dose] 81 mg PO AC-LUNCH 09/02/18 09/02/18 History Allergies Allergy/AdvReac Type Severity Reaction Status Date / Time codeine AdvReac Nausea & Verified 09/02/18 16:44 Vomiting Physical Exam Vitals: Vital Signs Temp Pulse Resp BP Pulse Ox 09/04/18 12:00 64 20 121/56 98 09/04/18 08:10 97.8 F 71 20 134/74 95 09/04/18 04:00 98.7 F 69 18 160/69 95 09/04/18 00:00 98.2 F 61 18 159/72 97 09/03/18 20:34 98.2 F 71 18 154/68 97 09/03/18 16:00 98.2 F 68 17 162/63 95 Intake and Output 09/03/18 09/04/18 09/04/18 22:59 06:59 14:59 Intake Total 461.537 975.211 Balance 461.537 975.211 Intake: IV 100 0.9% NaCl with KCl 20 Meq 100 /l 1,000 ml @ 50 mls/hr IV .Q20H COUNTS INCLUDE 234 BEDS AT [facility] Rx#: [id number] Intake, IV Titration 61.537 975.211 Amount 0.9% NaCl with KCl 20 Meq 900 /l 1,000 ml @ 50 mls/hr IV .Q20H [facility] Rx#: [id number] Heparin Sod,Pork in 0.45% 61.537 75.211 NaCl 25,000 unit In 0.45 % NaCl 1 250ml.bag @ 12 UNITS/KG/HR 8.94 mls/hr IV .Q24H [facility] Rx#: [id number] Oral 300 Other: Voiding Method Toilet # Voids 2 Weight 73.8 kg - Constitutional General appearance: average body habitus, no acute distress - EENT Eyes: EOMI, PERRLA ENT: hearing grossly normal Ears: bilateral: normal - Neck Neck: normal ROM Carotids: bilateral: upstroke normal Thyroid: bilateral: normal size - Respiratory Respiratory: bilateral: CTA - Cardiovascular Rhythm: regular Heart sounds: normal: S1, S2 - Gastrointestinal General gastrointestinal: normal bowel sounds - Integumentary Integumentary: normal turgor - Neurologic Neurologic: CNII-XII intact - Musculoskeletal Musculoskeletal: gait normal - Psychiatric Psychiatric: A&O x's 3, appropriate affect, intact judgment & insight Results - Laboratory Findings CBC and BMP: 09/04/18 03:32 09/04/18 03:32 PT/INR, D-dimer PT 9.9 sec (9.0-12.0) 09/03/18 12:03 INR 0.9 (<1.2) 09/03/18 12:03 Abnormal lab findings: Abnormal Labs 09/02/18 09/02/18 09/02/18 17:19 17:19 17:19 RBC PT 12.4 H INR 1.2 H APTT 31.2 H Chloride 110 H Glucose 124 H POC Glucose (mg/dL) Hemoglobin A1c Calcium 8.2 L Alkaline Phosphatase 33 L Total Creatine Kinase 261 H Total Protein 6.1 L Albumin 3.4 L HDL Cholesterol Ur Specific [place] 09/02/18 09/02/18 09/03/18 17:19 23:06 05:10 RBC PT INR APTT Chloride Glucose POC Glucose (mg/dL) Hemoglobin A1c 6.5 H Calcium Alkaline Phosphatase Total Creatine Kinase 221 H 217 H Total Protein Albumin HDL Cholesterol Ur Specific [place] 09/03/18 09/03/18 09/03/18 05:10 06:35 08:10 RBC PT INR APTT Chloride 109 H Glucose 130 H POC Glucose (mg/dL) 121 H Hemoglobin A1c Calcium Alkaline Phosphatase Total Creatine Kinase Total Protein Albumin HDL Cholesterol 35 L Ur Specific [place] 09/03/18 09/03/18 09/03/18 11:49 12:00 15:57 RBC PT INR APTT Chloride Glucose POC Glucose (mg/dL) 170 H 148 H Hemoglobin A1c Calcium Alkaline Phosphatase Total Creatine Kinase Total Protein Albumin HDL Cholesterol Ur Specific [place] 1.036 H 09/03/18 09/03/18 09/04/18 20:42 20:55 03:32 RBC 4.26 L PT INR APTT 37.1 H Chloride Glucose POC Glucose (mg/dL) 145 H Hemoglobin A1c Calcium Alkaline Phosphatase Total Creatine Kinase Total Protein Albumin HDL Cholesterol Ur Specific [place] 09/04/18 09/04/18 09/04/18 03:32 03:32 05:48 RBC PT INR APTT 45.7 H Chloride 111 H Glucose 125 H POC Glucose (mg/dL) 123 H Hemoglobin A1c Calcium Alkaline Phosphatase Total Creatine Kinase Total Protein Albumin HDL Cholesterol Ur Specific [place] 09/04/18 09/04/18 10:01 11:40 RBC PT INR APTT 63.0 H Chloride Glucose POC Glucose (mg/dL) 147 H Hemoglobin A1c Calcium Alkaline Phosphatase Total Creatine Kinase Total Protein Albumin HDL Cholesterol Ur Specific [place] - Diagnostic Findings Chest x-ray: image reviewed Assessment and Plan Assessment: Impression: #1 Coronary artery disease with 99% stenosis involving the ostial portion of the left anterior descending artery. The plan is for coronary artery revascularization on 09/08/2017. #2 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 #3 Diabetes mellitus. #4 Osteoarthritis. #5 Sleep apnea. #6 Remote history of chronic tobacco dependence. Plan: The patient was seen and evaluated by Dr. Mitchell. Chest x-ray and labs were reviewed. He is stable from the pulmonary standpoint. FEV1 value greater than 2 L. No pulmonary contraindications to surgery. He has been educated regarding the use the incentive spirometer and cough and deep breathing exercises. He remains on a heparin drip for now. Nitro ointment remains in place. We will follow him in the immediate postoperative period and throughout the rest of his stay. I, the cosigning physician, performed a history & physical examination of the patient. Lungs sounds are clear. Maintaining good O2 saturations in the 90s on room air. I discussed the assessment and plan of care with my nurse practitioner, Debi Marin. I attest to the above consultation as dictated by her. Time with Patient: Greater than 30
--- NOTE | 2018-09-04 14:02 | P.PN ---
Subjective Patient looks comfortable. He is pain-free no respiratory distress on IV heparin He has some chest pain only when he takes a deep breath in with incentive spirometry Blood pressure 121/56. His mercury 134/74 and 160/60 mmHg pulse rate in the 60s afebrile Breath sounds are reduced prior to the crackles no rhonchi Extremities warm no edema Abdomen soft nontender Impression Coronary artery disease, ostial LAD stenosis 99% ablating coronary artery bypass grafting Xarelto has been held heparin has been initiated he has a history of DVT History of diabetes type 2 Plan is to continue IV heparin and the patient will stay in hospital and then proceed with surgery next week Objective - Vital Signs Vital signs: Vital Signs Temp 97.8 F 09/04/18 08:10 Pulse 64 09/04/18 12:00 Resp 20 09/04/18 12:00 BP 121/56 09/04/18 12:00 Pulse Ox 98 09/04/18 12:00 Intake & Output 09/03/18 09/04/18 09/04/18 18:59 06:59 18:59 Intake Total 550 1136.748 Balance 550 1136.748 Weight 73.8 kg Intake: IV 50 100 0.9% NaCl with KCl 20 Meq 100 /l 1,000 ml @ 50 mls/hr IV .Q20H [facility] Rx#: [id number] Intake, IV Titration 1036.748 Amount 0.9% NaCl with KCl 20 Meq 900 /l 1,000 ml @ 50 mls/hr IV .Q20H [facility] Rx#: [id number] Heparin Sod,Pork in 0.45% 136.748 NaCl 25,000 unit In 0.45 % NaCl 1 250ml.bag @ 12 UNITS/KG/HR 8.94 mls/hr IV .Q24H [facility] Rx#: [id number] Oral 300 Other 200 Other: Voiding Method Toilet Toilet # Voids 2 - Labs CBC & Chem 7: 09/04/18 03:32 09/04/18 03:32 Labs: Abnormal Lab Results - Last 24 Hours (Table) 09/02/18 09/03/18 09/03/18 Range/Units 17:19 05:10 15:57 RBC (4.30-5.90) m/uL APTT (22.0-30.0) sec Chloride 109 H (98-107) mmol/L Glucose 130 H (74-99) mg/dL POC Glucose (mg/dL) 148 H (75-99) mg/dL Hemoglobin A1c 6.5 H (4.0-6.0) % 09/03/18 09/03/18 09/04/18 Range/Units 20:42 20:55 03:32 RBC 4.26 L (4.30-5.90) m/uL APTT 37.1 H (22.0-30.0) sec Chloride (98-107) mmol/L Glucose (74-99) mg/dL POC Glucose (mg/dL) 145 H (75-99) mg/dL Hemoglobin A1c (4.0-6.0) % 09/04/18 09/04/18 09/04/18 Range/Units 03:32 03:32 05:48 RBC (4.30-5.90) m/uL APTT 45.7 H (22.0-30.0) sec Chloride 111 H (98-107) mmol/L Glucose 125 H (74-99) mg/dL POC Glucose (mg/dL) 123 H (75-99) mg/dL Hemoglobin A1c (4.0-6.0) % 09/04/18 09/04/18 Range/Units 10:01 11:40 RBC (4.30-5.90) m/uL APTT 63.0 H (22.0-30.0) sec Chloride (98-107) mmol/L Glucose (74-99) mg/dL POC Glucose (mg/dL) 147 H (75-99) mg/dL Hemoglobin A1c (4.0-6.0) % Microbiology - Last 24 Hours (Table) 09/03/18 12:00 Urine Culture - Preliminary Urine,Voided 09/03/18 11:07 Nasal Screen MRSA/MSSA - Preliminary Nasal Swab
[2018-09-04] MEDS: HEPARIN SOD,PORK IN 0.45% NACL 25,000 UNIT in 0.45% NACL 1 250ML.BAG IV SCH (16:06)
[2018-09-04 16:48] LABS: Glucose,Whole Blood 131 mg/dL (75-99)
[2018-09-04 21:01] LABS: Glucose,Whole Blood 159 mg/dL (75-99)
[2018-09-04 21:01] LABS: Glucose,Whole Blood 157 mg/dL (75-99)
--- NOTE | 2018-09-04 21:22 | PN ---
PROGRESS NOTE DATE OF SERVICE: 09/04/2018 DATE OF SERVICE: This 77-year-old gentleman admitted with features of chest pain and unstable angina, had 90% stenosis of LAD. The patient is being worked up for a CABG. This morning, after getting the breathing treatment, the patient apparently had chest discomfort and the repeat troponins did not show any changes. Patient closely monitored at this time. On exam, alert and oriented. Pulse 69, blood pressure 160/92, respiration 18, temperature 98.7, pulse ox 92% room air. HEENT: Conjunctivae normal. Oral mucosa moist. NECK: No jugular venous distention. No lymph node enlargement. CARDIOVASCULAR: S1, S2. RESPIRATORY: Diminished breath sounds at the bases. No rhonchi, no crackles. ABDOMEN: Soft, nontender. LEGS: No swelling. NERVOUS SYSTEM: No focal deficits. LABS: At this time shows WBC 6.2, hemoglobin 13.9, glucose is 131. ASSESSMENT: 1. Unstable angina, coronary disease, status post cardiac catheterization with 90% stenosis of LAD. 2. History of skin cancer. 3. History of DVT. 4. Remote history of nicotine dependence. RECOMMENDATIONS AND DISCUSSION: Recommend to continue current management, continue symptomatic treatment, continue with antiplatelet agents and continue with beta blockers. Continue the rest of medications. Closely follow with Cardiology and cardiothoracic surgery. Continue the telemetry. The prognosis is guarded. We will monitor the blood sugar. Continue the IV heparin. Further recommendations to follow. As mentioned earlier, troponins have been negative after episode of chest pain. MMODL / IJN: [id number] /
[2018-09-05 05:49] LABS: Glucose,Whole Blood 116 mg/dL (75-99)
[2018-09-05] MEDS: INSULIN ASPART 100 UNIT/ML 1 ML 10 ML VIAL SQ SCH ×4 (06:09→21:06)
[2018-09-05 06:40] LABS: Basophils % (A) 0 %; Eosinophils # (A) 0.2 k/uL (0-0.7); Eosinophils % (A) 3 %; HCT 39.9 % (39.0-53.0); HGB 13.3 gm/dL (13.0-17.5); Lymphocytes # (A) 1.9 k/uL (1.0-4.8); Lymphocytes % (A) 29 %; MCH 31.2 pg (25.0-35.0); MCHC 33.3 g/dL (31.0-37.0); MCV 93.9 fL (80.0-100.0); Monocytes # (A) 0.4 k/uL (0-1.0); Monocytes % (A) 7 %; Neutrophils % (A) 59 %; Platelet Count 158 k/uL (150-450); RBC 4.25 m/uL (4.30-5.90); RDW 13.9 % (11.5-15.5); WBC 6.7 k/uL (3.8-10.6)
[2018-09-05] MEDS: NITROGLYCERIN OINT 1 INCH/GM PACKET TOPICAL SCH ×4 (06:45→23:13)
[2018-09-05] MEDS: PANTOPRAZOLE 40 MG TABLET PO SCH (06:45)
[2018-09-05] MEDS ORDERED: NITROGLYCERIN SL TABS 0.4 MG TAB SUBLINGUAL ONE (07:57)
[2018-09-05] MEDS: METOPROLOL SUCCINATE (ER) 25 MG TAB.ER.24H PO SCH (08:10)
[2018-09-05] MEDS: ATORVASTATIN 80 MG TAB PO SCH (08:11)
[2018-09-05] MEDS: ASPIRIN 81 MG PO SCH (08:11)
[2018-09-05] MEDS: LISINOPRIL 10 MG TAB PO SCH ×2 (08:11→21:06)
[2018-09-05] MEDS: MUPIROCIN 2% OINT 22 GM TUBE TOPICAL SCH ×2 (08:12→21:06)
[2018-09-05] MEDS: HEPARIN SOD,PORK IN 0.45% NACL 25,000 UNIT in 0.45% NACL 1 250ML.BAG IV SCH (08:22)
[2018-09-05 11:20] LABS: Glucose,Whole Blood 136 mg/dL (75-99)
--- NOTE | 2018-09-05 16:06 | P.PN ---
Subjective Patient had one episode of chest discomfort that lasted for 10 minutes after exertion and the use of incentive spirometry. No ECG changes. Relieved quickly with sublingual nitroglycerin Currently on a Nitropaste and IV heparin awaiting coronary artery bypass grafting. Xarelto is on hold On examination he is afebrile pulse rate in the 50s blood pressure 159/65 mmHg and 125/83 mmHg respirations are normal Heart sounds. Normal no murmurs or gallops. Extremities warm no edema Abdomen soft Hemoglobin is normal Suggest Increase lisinopril to 10 mg twice daily Continue aspirin atorvastatin heparin and low-dose beta blockers as well as Nitropaste Objective - Vital Signs Vital signs: Vital Signs Temp 98.2 F 09/05/18 12:00 Pulse 54 L 09/05/18 12:00 Resp 17 09/05/18 12:00 BP 159/65 09/05/18 12:00 Pulse Ox 95 09/05/18 12:00 Intake & Output 09/04/18 09/05/18 09/05/18 18:59 06:59 18:59 Intake Total 113.252 50 903.182 Balance 113.252 50 903.182 Weight 74.1 kg Intake: IV 50 0.9% NaCl with KCl 20 Meq 50 /l 1,000 ml @ 50 mls/hr IV .Q20H [facility] Rx#: [id number] Intake, IV Titration 113.252 283.182 Amount Heparin Sod,Pork in 0.45% 113.252 283.182 NaCl 25,000 unit In 0.45 % NaCl 1 250ml.bag @ 12 UNITS/KG/HR 8.94 mls/hr IV .Q24H [facility] Rx#: [id number] Oral 620 Other: Voiding Method Toilet # Voids 2 1 2 - Labs CBC & Chem 7: 09/05/18 06:07 09/04/18 03:32 Labs: Abnormal Lab Results - Last 24 Hours (Table) 09/04/18 09/04/18 09/04/18 Range/Units 16:36 20:58 20:59 RBC (4.30-5.90) m/uL APTT (22.0-30.0) sec POC Glucose (mg/dL) 131 H 159 H 157 H (75-99) mg/dL 09/05/18 09/05/18 09/05/18 Range/Units 05:46 06:07 06:07 RBC 4.25 L (4.30-5.90) m/uL APTT 80.7 H (22.0-30.0) sec POC Glucose (mg/dL) 116 H (75-99) mg/dL 09/05/18 09/05/18 Range/Units 11:16 14:20 RBC (4.30-5.90) m/uL APTT 60.8 H (22.0-30.0) sec POC Glucose (mg/dL) 136 H (75-99) mg/dL Microbiology - Last 24 Hours (Table) 09/03/18 11:07 Nasal Screen MRSA/MSSA - Final Nasal Swab 09/03/18 12:00 Urine Culture - Final Urine,Voided
--- NOTE | 2018-09-05 16:23 | PN ---
PROGRESS NOTE DATE OF SERVICE: 09/05/2018 This 77-year-old gentleman admitted with unstable angina, had significant stenosis LAD. Patient is slated to have CABG on Thursday. This morning also patient while doing incentive spirometry, patient had short lasting chest pain in the anterior part of the chest. The troponins are negative and Cardiology, Cardiothoracic surgery are aware. PHYSICAL EXAM: Patient is alert, oriented x3, pulse 54, blood pressure 159/64, respiration 17, temperature 98.2, pulse ox 94% on room air. HEENT: Conjunctivae normal. Neck: No jugular venous distention. CARDIOVASCULAR: S1, S2 muffled. Respirations: Breath sounds diminished in the bases. No rhonchi. No crackles. ABDOMEN: Soft, nontender. Legs no edema. No swelling. NERVOUS SYSTEM: Higher functions as mentioned earlier. No focal deficits. Moves all four extremities. Lymphatics: No lymph nodes palpable in the neck, axillae or groin. SKIN: No ulcer, rash or bleeding. LAB STUDIES: WBC 6.2, hemoglobin 13.3, glucose 136. ASSESSMENT: 1. Unstable angina, coronary artery disease, status post cardiac catheterization with 90% stenosis of left anterior descending coronary artery. 2. History of skin cancer. 3. History of deep vein thrombosis. 4. Remote history of nicotine dependence. RECOMMENDATIONS AND DISCUSSION: Recommend to continue current medications, management and symptomatic treatment. Otherwise, at this time, we will monitor the patient closely. Continue the beta blockers. Further recommendations to follow. MMODL / IJN: [id number] /
[2018-09-05 16:28] LABS: Glucose,Whole Blood 155 mg/dL (75-99)
[2018-09-05 20:59] LABS: Glucose,Whole Blood 158 mg/dL (75-99)
[2018-09-06] MEDS: HEPARIN SOD,PORK IN 0.45% NACL 25,000 UNIT in 0.45% NACL 1 250ML.BAG IV SCH (03:34)
[2018-09-06 05:50] LABS: Glucose,Whole Blood 129 mg/dL (75-99)
[2018-09-06 06:19] LABS: Basophils % (A) 1 %; Eosinophils # (A) 0.2 k/uL (0-0.7); Eosinophils % (A) 3 %; HCT 40.3 % (39.0-53.0); HGB 13.5 gm/dL (13.0-17.5); Lymphocytes # (A) 1.8 k/uL (1.0-4.8); Lymphocytes % (A) 30 %; MCH 31.3 pg (25.0-35.0); MCHC 33.4 g/dL (31.0-37.0); MCV 93.8 fL (80.0-100.0); Mean Platelet Volume 6.8; Monocytes # (A) 0.5 k/uL (0-1.0); Monocytes % (A) 8 %; Neutrophils # (A) 3.3 k/uL (1.3-7.7); Neutrophils % (A) 56 %; Platelet Count 157 k/uL (150-450); RDW 13.9 % (11.5-15.5)
[2018-09-06] MEDS: NITROGLYCERIN OINT 1 INCH/GM PACKET TOPICAL SCH ×4 (06:34→23:16)
[2018-09-06] MEDS: PANTOPRAZOLE 40 MG TABLET PO SCH (06:34)
[2018-09-06] MEDS: INSULIN ASPART 100 UNIT/ML 1 ML 10 ML VIAL SQ SCH ×4 (06:34→20:55)
[2018-09-06 08:00] LABS: Anion Gap 5 mmol/L; Blood Urea Nitrogen 10 mg/dL (9-20); Calcium 8.7 mg/dL (8.4-10.2); Carbon Dioxide 26 mmol/L (22-30); Chloride 112 mmol/L (98-107); Glucose 134 mg/dL (74-99); Potassium 4.3 mmol/L (3.5-5.1); Sodium 143 mmol/L (137-145)
[2018-09-06] MEDS: ATORVASTATIN 80 MG TAB PO SCH (08:04)
[2018-09-06] MEDS: LISINOPRIL 10 MG TAB PO SCH (08:04)
[2018-09-06] MEDS: ASPIRIN 81 MG PO SCH (08:04)
[2018-09-06] MEDS: METOPROLOL SUCCINATE (ER) 25 MG TAB.ER.24H PO SCH (08:04)
[2018-09-06] MEDS: MUPIROCIN 2% OINT 22 GM TUBE TOPICAL SCH ×2 (08:06→20:56)
--- NOTE | 2018-09-06 08:39 | P.PN ---
<Suzan Pierre - Last Filed: 09/06/18 08:35> Subjective Progress Note Date: 09/06/18 Principal diagnosis: Coronary artery disease with ostial LAD stenosis 99%. Previous medical history of diabetes with the preoperative FEV1 6.5%, skin cancer with removal, DVT left lower extremity in 2012 and right lower extremity in 2013 on chronic Xarelto for anticoagulation, recent left rotator cuff repair, previous tobacco dependence, mild COPD with preoperative FEV1 67% of predicted, questionable sleep apnea without official diagnosis, peripheral vascular disease, and family history of early coronary artery disease with father diagnosed at 52 years old. The patient is currently sitting up in a recliner in no acute distress. Did complain of brief episode of chest pain this morning, resolved without intervention. Currently denies pain or shortness of breath. Ambulating in room. No new questions or concerns. Objective - Vital Signs Vital signs: Vital Signs Temp 98.6 F 09/06/18 08:00 Pulse 71 09/06/18 08:00 Resp 18 09/06/18 08:00 BP 155/75 09/06/18 08:00 Pulse Ox 98 09/06/18 08:00 Intake & Output 09/05/18 09/06/18 09/06/18 18:59 06:59 18:59 Intake Total 1163.182 317.019 Balance 1163.182 317.019 Weight 73.8 kg Intake: IV 180 .9 180 Intake, IV Titration 283.182 137.019 Amount Heparin Sod,Pork in 0.45% 283.182 137.019 NaCl 25,000 unit In 0.45 % NaCl 1 250ml.bag @ 12 UNITS/KG/HR 8.94 mls/hr IV .Q24H [facility] Rx#: [id number] Oral 880 Other: Voiding Method Toilet Toilet # Voids 2 - Constitutional General appearance: Present: cooperative, no acute distress - Respiratory Details: Lungs sounds clear bilaterally. Respirations even, nonlabored. Currently on room air oxygen saturation 95%. Able to achieve 3500 mL on incentive spirometry. - Cardiovascular Details: S1, S2 present. Regular rate and rhythm, sinus rhythm on telemetry. Palpable peripheral pulses bilaterally. No edema present. No calf pain or tenderness noted. - Gastrointestinal Gastrointestinal Comment(s): Abdomen soft, nontender, nondistended. Active bowel sounds present 4 quadrants. Tolerating diet. - Genitourinary Genitourinary Comment(s): Continues to void clear, yellow urine. - Integumentary Integumentary Comment(s): Skin is warm and dry with evidence of good perfusion. - Neurologic Neurologic: Present: CNII-XII intact - Musculoskeletal Musculoskeletal: Present: gait normal, strength equal bilaterally - Psychiatric Psychiatric: Present: A&O x's 3, appropriate affect, intact judgment & insight - Allied health notes Allied health notes reviewed: nursing - Labs CBC & Chem 7: 09/06/18 05:44 09/06/18 05:44 Labs: Abnormal Lab Results - Last 24 Hours (Table) 09/05/18 09/05/18 09/05/18 Range/Units 11:16 14:20 16:17 APTT 60.8 H (22.0-30.0) sec Chloride (98-107) mmol/L Glucose (74-99) mg/dL POC Glucose (mg/dL) 136 H 155 H (75-99) mg/dL 09/05/18 09/06/18 09/06/18 Range/Units 20:57 05:44 05:44 APTT 116.1 H* (22.0-30.0) sec Chloride 112 H (98-107) mmol/L Glucose 134 H (74-99) mg/dL POC Glucose (mg/dL) 158 H (75-99) mg/dL 09/06/18 Range/Units 05:49 APTT (22.0-30.0) sec Chloride (98-107) mmol/L Glucose (74-99) mg/dL POC Glucose (mg/dL) 129 H (75-99) mg/dL Assessment and Plan (1) Coronary artery disease Current Visit: Yes Status: Chronic Code(s): I25.10 - ATHSCL HEART DISEASE OF [place] CORONARY ARTERY W/O ANG PCTRS SNOMED Code(s): 26613154 (2) Diabetes mellitus Current Visit: Yes Status: Chronic Code(s): E11.9 - TYPE 2 DIABETES MELLITUS WITHOUT COMPLICATIONS SNOMED Code(s): 87225183 (3) History of skin cancer Current Visit: No Status: Resolved Code(s): Z85.828 - PERSONAL HISTORY OF OTHER MALIGNANT NEOPLASM OF SKIN SNOMED Code(s): 732978568 (4) DVT (deep venous thrombosis) Current Visit: No Status: Resolved Code(s): I82.409 - ACUTE EMBOLISM AND THOMBOS UNSP DEEP VN UNSP LOWER EXTREMITY SNOMED Code(s): 145291743 (5) Chronic anticoagulation Current Visit: Yes Status: Chronic Code(s): Z79.01 - LONG-TERM (CURRENT) USE OF ANTICOAGULANTS SNOMED Code(s): 797933046 (6) Family history of premature CAD Current Visit: Yes Status: Chronic Code(s): Z82.49 - FAMILY HX OF ISCHEM HEART DIS AND OTH DIS OF THE CIRC SYS SNOMED Code(s): 074195933 (7) Tobacco dependence in remission Current Visit: No Status: Resolved Code(s): F17.201 - NICOTINE DEPENDENCE, UNSPECIFIED, IN REMISSION SNOMED Code(s): 140969040 (8) Unstable angina pectoris Current Visit: Yes Status: Acute Code(s): I20.0 - UNSTABLE ANGINA SNOMED Code(s): 1310736 Plan: 1. Continue aspirin, statin, beta marline, IV heparin, Nitropaste. 2. Plan is for coronary artery bypass graft surgery with Dr. Francisco on ThursdaySeptember 08. 3. Continue to hold Xarelto. Will discontinue KAYLEN inhibitor 48 hours prior to surgery to prevent hypotension intraoperatively. 4. Encourage continued incentive spirometry. Activity as tolerated. 5. Continue preoperative teaching. 6. Medical management per primary care service. 7. More recommendations to follow. Time with Patient: Greater than 30 <Ean Mejia - Last Filed: 09/06/18 15:42> Objective - Vital Signs Vital signs: Vital Signs Temp 97.7 F 09/06/18 15:23 Pulse 61 09/06/18 15:23 Resp 18 09/06/18 15:23 BP 121/61 09/06/18 15:23 Pulse Ox 97 09/06/18 15:23 Intake & Output 09/05/18 09/06/18 09/06/18 18:59 06:59 18:59 Intake Total 1163.182 317.019 120.606 Balance 1163.182 317.019 120.606 Weight 73.8 kg Intake: IV 180 .9 180 Intake, IV Titration 283.182 137.019 120.606 Amount Heparin Sod,Pork in 0.45% 283.182 137.019 120.606 NaCl 25,000 unit In 0.45 % NaCl 1 250ml.bag @ 12 UNITS/KG/HR 8.94 mls/hr IV .Q24H [facility] Rx#: [id number] Oral 880 Other: Voiding Method Toilet Toilet # Voids 2 - Labs CBC & Chem 7: 09/06/18 05:44 09/06/18 05:44 Labs: Abnormal Lab Results - Last 24 Hours (Table) 09/05/18 09/05/18 09/06/18 Range/Units 16:17 20:57 05:44 APTT (22.0-30.0) sec Chloride 112 H (98-107) mmol/L Glucose 134 H (74-99) mg/dL POC Glucose (mg/dL) 155 H 158 H (75-99) mg/dL 09/06/18 09/06/18 09/06/18 Range/Units 05:44 05:49 11:32 APTT 116.1 H* (22.0-30.0) sec Chloride (98-107) mmol/L Glucose (74-99) mg/dL POC Glucose (mg/dL) 129 H 125 H (75-99) mg/dL 09/06/18 Range/Units 14:25 APTT 94.1 H (22.0-30.0) sec Chloride (98-107) mmol/L Glucose (74-99) mg/dL POC Glucose (mg/dL) (75-99) mg/dL
[2018-09-06] MEDS ORDERED: MD COMMUNICATION TO PHARMACY 1 EACH MISC PO ONE ×3 (10:05)
[2018-09-06 11:34] LABS: Glucose,Whole Blood 125 mg/dL (75-99)
--- NOTE | 2018-09-06 11:35 | P.PN ---
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 He underwent a cardiac catheterization and was found to have 99% stenosis of the ostial portion of the LAD, he does have a normal left ventricular systolic function. Patient was not candidate for stent placement and hence was referred to cardiothoracic surgery. He will undergo coronary artery bypass grafting surgery on Thursday. Patient was seen and examined this morning, he states earlier this morning he did have 2 brief episodes of chest discomfort lasting approximately 5 minutes each. At the time of my examination he was chest pain-free. Blood pressure this morning 154/70 with a heart rate in the 70s, 99% on room air. White blood cell count 6.0, hemoglobin 13.5, platelet count 157. Sodium 143, potassium 4.3, BUN 10, creatinine 0.7. Objective - Vital Signs Vital signs: Vital Signs Temp 98.6 F 09/06/18 08:00 Pulse 71 09/06/18 08:00 Resp 18 09/06/18 08:00 BP 155/75 09/06/18 08:00 Pulse Ox 98 09/06/18 08:00 Intake & Output 09/05/18 09/06/18 09/06/18 18:59 06:59 18:59 Intake Total 1163.182 317.019 Balance 1163.182 317.019 Weight 73.8 kg Intake: IV 180 .9 180 Intake, IV Titration 283.182 137.019 Amount Heparin Sod,Pork in 0.45% 283.182 137.019 NaCl 25,000 unit In 0.45 % NaCl 1 250ml.bag @ 12 UNITS/KG/HR 8.94 mls/hr IV .Q24H [facility] Rx#: [id number] Oral 880 Other: Voiding Method Toilet Toilet # Voids 2 - Exam PHYSICAL EXAMINATION: GENERAL: 77-year-old gentleman in no acute distress at the time of my examination HEENT: Head is atraumatic, normocephalic. Pupils equal, round. Sclera anicteric. Conjunctiva are clear. Mucous membranes of the mouth are moist. Neck is supple. There is no elevated jugular venous pressure.No carotid bruit is heard. HEART EXAMINATION: Heart S1, S2 normal. No murmur or gallop heard. CHEST EXAMINATION: Lungs are clear to auscultation and precussion. No chest wall tenderness is noted on palpation or with deep breathing. ABDOMEN: Soft, nontender. Bowel sounds are heard. No organomegaly noted. EXTREMITIES: 2+ peripheral pulses with no evidence of peripheral edema and no calf tenderness noted. NEUROLOGIC patient is awake, alert and oriented X3. . - Labs CBC & Chem 7: 09/06/18 05:44 09/06/18 05:44 Labs: Abnormal Lab Results - Last 24 Hours (Table) 09/05/18 09/05/18 09/05/18 Range/Units 11:16 14:20 16:17 APTT 60.8 H (22.0-30.0) sec Chloride (98-107) mmol/L Glucose (74-99) mg/dL POC Glucose (mg/dL) 136 H 155 H (75-99) mg/dL 09/05/18 09/06/18 09/06/18 Range/Units 20:57 05:44 05:44 APTT 116.1 H* (22.0-30.0) sec Chloride 112 H (98-107) mmol/L Glucose 134 H (74-99) mg/dL POC Glucose (mg/dL) 158 H (75-99) mg/dL 09/06/18 Range/Units 05:49 APTT (22.0-30.0) sec Chloride (98-107) mmol/L Glucose (74-99) mg/dL POC Glucose (mg/dL) 129 H (75-99) mg/dL Assessment and Plan Plan: Impression: #1 Coronary artery disease with 99% stenosis involving the ostial portion of the left anterior descending artery. The plan is for coronary artery revascularization on 09/08/2017. #2 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 #3 Diabetes mellitus. #4 Osteoarthritis. #5 Sleep apnea. #6 Remote history of chronic tobacco dependence. Plan We will continue the patient on his current medications. Surgery is scheduled for Thursday, we will continue to follow. DNP note has been reviewed, I agree with a documented findings and plan of care. Patient was seen and examined.
--- NOTE | 2018-09-06 15:25 | P.PN ---
Subjective Progress Note Date: 09/06/18 Principal diagnosis: Coronary artery disease, awaiting bypass surgery This is a very pleasant 77-year-old gentleman who follows with Dr. Molina as his primary care physician. 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 He had recently been having episodes of chest discomfort with exertion. Even walking out to his mailbox and back he would have to stop and rest until the pain subsided. He was seen and evaluated by Dr. Hood who directed him here to the emergency room on 09/02/2018. He had subsequently undergone cardiac catheterization and was found to have a 99% stenosis of the ostial portion of the left anterior descending artery. He does have a normal left ventricular systolic function. He was not a stent candidate and has been seen and evaluated by cardiothoracic surgery who are planning to do coronary artery bypass grafting on 09/08/2018. We are consulted for the same. The patient does have a 30 year pack per day smoking history however quit 30 years ago. He denies any history of COPD, emphysema or asthma. He is not utilizing any inhalers or oxygen in the outpatient setting. He has not been seen by a wardrobe specialist in the past. He is seen today in consultation on the selective care unit. He is currently awake and alert in no acute distress. He denies any chest discomfort currently. No shortness of breath, cough or congestion. No dizziness or lightheadedness. He does have preserved left ventricular systolic function with ejection fraction 55-60%. No valvular heart disease. White count 6.8. Hemoglobin 1213.3. Creatinine 0.73. FEV1 value greater than 2 L. Chest x-ray showed no acute cardiopulmonary process. Carotid Dopplers without significant stenosis. On 09/06/2018 patient seen in follow-up on selective care unit, he is in no distress, no dyspnea, did have a couple episodes of chest discomfort this morning, lasting under 5 minutes, continuously resolved, patient remains on heparin drip, and maintenance IV fluid. Room air pulse ox is 98%, afebrile. Lung sounds are clear to auscultation. Today's labs have been reviewed, and are unremarkable. No new chest x-rays today, she is preop PFT was reviewed, showed a mild restrictive defect. No acute complaints. Awaiting surgery on Thursday09/08/2017 Objective - Vital Signs Vital signs: Vital Signs Temp 98.1 F 09/06/18 11:48 Pulse 71 09/06/18 08:00 Resp 18 09/06/18 11:48 BP 133/62 09/06/18 11:48 Pulse Ox 98 09/06/18 11:48 Intake & Output 09/05/18 09/06/18 09/06/18 18:59 06:59 18:59 Intake Total 1163.182 317.019 120.606 Balance 1163.182 317.019 120.606 Weight 73.8 kg Intake: IV 180 .9 180 Intake, IV Titration 283.182 137.019 120.606 Amount Heparin Sod,Pork in 0.45% 283.182 137.019 120.606 NaCl 25,000 unit In 0.45 % NaCl 1 250ml.bag @ 12 UNITS/KG/HR 8.94 mls/hr IV .Q24H [facility] Rx#: [id number] Oral 880 Other: Voiding Method Toilet Toilet # Voids 2 - Exam - Constitutional General appearance: average body habitus, no acute distress - EENT Eyes: EOMI, PERRLA ENT: hearing grossly normal Ears: bilateral: normal - Neck Neck: normal ROM Carotids: bilateral: upstroke normal Thyroid: bilateral: normal size - Respiratory Respiratory: bilateral: CTA - Cardiovascular Rhythm: regular Heart sounds: normal: S1, S2 - Gastrointestinal General gastrointestinal: normal bowel sounds - Integumentary Integumentary: normal turgor - Neurologic Neurologic: CNII-XII intact - Musculoskeletal Musculoskeletal: gait normal - Psychiatric Psychiatric: A&O x's 3, appropriate affect, intact judgment & insight - Labs CBC & Chem 7: 09/06/18 05:44 09/06/18 05:44 Labs: Abnormal Lab Results - Last 24 Hours (Table) 09/05/18 09/05/18 09/06/18 Range/Units 16:17 20:57 05:44 APTT (22.0-30.0) sec Chloride 112 H (98-107) mmol/L Glucose 134 H (74-99) mg/dL POC Glucose (mg/dL) 155 H 158 H (75-99) mg/dL 09/06/18 09/06/18 09/06/18 Range/Units 05:44 05:49 11:32 APTT 116.1 H* (22.0-30.0) sec Chloride (98-107) mmol/L Glucose (74-99) mg/dL POC Glucose (mg/dL) 129 H 125 H (75-99) mg/dL 09/06/18 Range/Units 14:25 APTT 94.1 H (22.0-30.0) sec Chloride (98-107) mmol/L Glucose (74-99) mg/dL POC Glucose (mg/dL) (75-99) mg/dL Assessment and Plan Plan: Assessment: #1 Coronary artery disease with 99% stenosis involving the ostial portion of the left anterior descending artery. The plan is for coronary artery revascularization on 09/08/2017. #2 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 #3 Diabetes mellitus. #4 Osteoarthritis. #5 Sleep apnea. #6 Remote history of chronic tobacco dependence. Plan: Remains stable from pulmonary perspective, having surgery on 09/08/2017. Did have a couple episodes of chest pain this morning, he is on nitro ointment and heparin drip. Using his incentive spirometer, able to achieve 3750 on it today. Learning ambulation. We'll continue to follow. I performed a history & physical examination of the patient and discussed their management with my nurse practitioner, Mago Thrasher. I reviewed the nurse practitioner's note and agree with the documented findings and plan of care. Lung sounds are positive for clear breath sounds. The findings and the impression was discussed with the patient. I attest to the documentation by the nurse practitioner. Time with Patient: Less than 30
[2018-09-06 17:09] LABS: Glucose,Whole Blood 205 mg/dL (75-99)
[2018-09-06 20:53] LABS: Glucose,Whole Blood 186 mg/dL (75-99)
[2018-09-07] MEDS: HEPARIN SOD,PORK IN 0.45% NACL 25,000 UNIT in 0.45% NACL 1 250ML.BAG IV SCH (06:41)
[2018-09-07] MEDS: PANTOPRAZOLE 40 MG TABLET PO SCH (06:42)
[2018-09-07] MEDS: NITROGLYCERIN OINT 1 INCH/GM PACKET TOPICAL SCH ×3 (06:42→17:53)
[2018-09-07] MEDS: INSULIN ASPART 100 UNIT/ML 1 ML 10 ML VIAL SQ SCH ×4 (06:42→22:53)
[2018-09-07 06:54] LABS: Glucose,Whole Blood 124 mg/dL (75-99)
[2018-09-07 07:01] LABS: INR 0.9 (<1.2); Partial Thromboplastin Time 76.8 sec (22.0-30.0); Prothrombin Time 9.9 sec (9.0-12.0)
[2018-09-07 07:06] LABS: Basophils % (A) 1 %; Eosinophils # (A) 0.2 k/uL (0-0.7); Eosinophils % (A) 3 %; HCT 40.5 % (39.0-53.0); HGB 13.8 gm/dL (13.0-17.5); Lymphocytes # (A) 1.7 k/uL (1.0-4.8); Lymphocytes % (A) 29 %; MCHC 34.1 g/dL (31.0-37.0); MCV 93.7 fL (80.0-100.0); Monocytes # (A) 0.4 k/uL (0-1.0); Monocytes % (A) 8 %; Neutrophils # (A) 3.4 k/uL (1.3-7.7); Neutrophils % (A) 58 %; Platelet Count 154 k/uL (150-450); RBC 4.32 m/uL (4.30-5.90); RDW 13.8 % (11.5-15.5); WBC 5.9 k/uL (3.8-10.6)
[2018-09-07 07:12] LABS: Albumin 3.4 g/dL (3.5-5.0); Glucose 134 mg/dL (74-99)
[2018-09-07 08:16] LABS: ALT 39 U/L (21-72); AST 32 U/L (17-59); Alkaline Phosphatase 46 U/L (38-126); Anion Gap 6 mmol/L; Blood Urea Nitrogen 10 mg/dL (9-20); Calcium 8.6 mg/dL (8.4-10.2); Carbon Dioxide 26 mmol/L (22-30); Chloride 112 mmol/L (98-107); Sodium 144 mmol/L (137-145); Total Bilirubin 0.6 mg/dL (0.2-1.3); Total Protein 6.1 g/dL (6.3-8.2)
--- NOTE | 2018-09-07 08:29 | P.PN ---
Subjective Progress Note Date: 09/07/18 Principal diagnosis: Coronary artery disease with ostial LAD stenosis 99%. Previous medical history of diabetes with the preoperative FEV1 6.5%, skin cancer with removal, DVT left lower extremity in 2012 and right lower extremity in 2013 on chronic Xarelto for anticoagulation, recent left rotator cuff repair, previous tobacco dependence, mild COPD with preoperative FEV1 67% of predicted, obstructive sleep apnea without home CPAP, peripheral vascular disease, and family history of early coronary artery disease with father diagnosed at 52 years old. The patient is currently sitting up in a recliner in no acute distress. Denies chest pain in the last 24 hours, no shortness of breath. Ambulating in hallway. No new questions or concerns. Objective - Vital Signs Vital signs: Vital Signs Temp 98.1 F 09/06/18 20:00 Pulse 69 09/07/18 04:00 Resp 15 09/07/18 04:00 BP 141/71 09/07/18 04:00 Pulse Ox 97 09/07/18 04:00 Intake & Output 09/06/18 09/07/18 09/07/18 18:59 06:59 18:59 Intake Total 480.606 114.854 Balance 480.606 114.854 Intake: Intake, IV Titration 120.606 114.854 Amount Heparin Sod,Pork in 0.45% 120.606 114.854 NaCl 25,000 unit In 0.45 % NaCl 1 250ml.bag @ 12 UNITS/KG/HR 8.94 mls/hr IV .Q24H [facility] Rx#: [id number] Oral 360 Other: Voiding Method Toilet # Voids 2 - Constitutional General appearance: Present: cooperative, no acute distress - Respiratory Details: Lungs sounds clear bilaterally. Respirations even, nonlabored. Currently on room air oxygen saturation 97%. Able to achieve 4000 mL on incentive spirometry. - Cardiovascular Details: S1, S2 present. Regular rate and rhythm, sinus rhythm on telemetry. Palpable peripheral pulses bilaterally. No edema present. No calf pain or tenderness noted. - Gastrointestinal Gastrointestinal Comment(s): Abdomen soft, nontender, nondistended. Active bowel sounds present 4 quadrants. Tolerating diet. - Genitourinary Genitourinary Comment(s): Continues to void clear, yellow urine. - Integumentary Integumentary Comment(s): Skin is warm and dry with evidence of good perfusion. - Neurologic Neurologic: Present: CNII-XII intact - Musculoskeletal Musculoskeletal: Present: gait normal, strength equal bilaterally - Psychiatric Psychiatric: Present: A&O x's 3, appropriate affect, intact judgment & insight - Allied health notes Allied health notes reviewed: nursing - Labs CBC & Chem 7: 09/07/18 06:15 09/07/18 06:15 Labs: Abnormal Lab Results - Last 24 Hours (Table) 09/06/18 09/06/18 09/06/18 Range/Units 11:32 14:25 16:44 APTT 94.1 H (22.0-30.0) sec Chloride (98-107) mmol/L Glucose (74-99) mg/dL POC Glucose (mg/dL) 125 H 205 H (75-99) mg/dL Total Protein (6.3-8.2) g/dL Albumin (3.5-5.0) g/dL 09/06/18 09/06/18 09/07/18 Range/Units 20:52 21:43 06:15 APTT 80.2 H 76.8 H (22.0-30.0) sec Chloride (98-107) mmol/L Glucose (74-99) mg/dL POC Glucose (mg/dL) 186 H (75-99) mg/dL Total Protein (6.3-8.2) g/dL Albumin (3.5-5.0) g/dL 09/07/18 09/07/18 Range/Units 06:15 06:37 APTT (22.0-30.0) sec Chloride 112 H (98-107) mmol/L Glucose 134 H (74-99) mg/dL POC Glucose (mg/dL) 124 H (75-99) mg/dL Total Protein 6.1 L (6.3-8.2) g/dL Albumin 3.4 L (3.5-5.0) g/dL - Imaging and Cardiology Chest x-ray: report reviewed, image reviewed Assessment and Plan (1) Coronary artery disease Current Visit: Yes Status: Chronic Code(s): I25.10 - ATHSCL HEART DISEASE OF [place] CORONARY ARTERY W/O ANG PCTRS SNOMED Code(s): 74677329 (2) Diabetes mellitus Current Visit: Yes Status: Chronic Code(s): E11.9 - TYPE 2 DIABETES MELLITUS WITHOUT COMPLICATIONS SNOMED Code(s): 47634442 (3) History of skin cancer Current Visit: No Status: Resolved Code(s): Z85.828 - PERSONAL HISTORY OF OTHER MALIGNANT NEOPLASM OF SKIN SNOMED Code(s): 021275890 (4) DVT (deep venous thrombosis) Current Visit: No Status: Resolved Code(s): I82.409 - ACUTE EMBOLISM AND THOMBOS UNSP DEEP VN UNSP LOWER EXTREMITY SNOMED Code(s): 240530154 (5) Chronic anticoagulation Current Visit: Yes Status: Chronic Code(s): Z79.01 - ELECTRIC SPOT WELDER (CURRENT) USE OF ANTICOAGULANTS SNOMED Code(s): 003960689 (6) Family history of premature CAD Current Visit: Yes Status: Chronic Code(s): Z82.49 - FAMILY HX OF ISCHEM HEART DIS AND OTH DIS OF THE CIRC SYS SNOMED Code(s): 043933812 (7) Tobacco dependence in remission Current Visit: No Status: Resolved Code(s): F17.201 - NICOTINE DEPENDENCE, UNSPECIFIED, IN REMISSION SNOMED Code(s): 350820006 (8) Unstable angina pectoris Current Visit: Yes Status: Acute Code(s): I20.0 - UNSTABLE ANGINA SNOMED Code(s): 0671663 Plan: 1. Continue aspirin, statin, beta marline, IV heparin, Nitropaste. 2. Plan is for coronary artery bypass graft surgery with Dr. Francisco tomorrow September 2. Nothing to eat or drink after midnight. 3. Continue to hold Xarelto. Discontinue KAYLEN inhibitor 48 hours prior to surgery to prevent hypotension intraoperatively. 4. Encourage continued incentive spirometry. Activity as tolerated. 5. Continue preoperative teaching. 6. Medical management per primary care service. 7. More recommendations to follow. Time with Patient: Greater than 30
--- NOTE | 2018-09-07 08:51 | P.PN ---
Subjective Progress Note Date: 09/06/18 Progress note being dictated for Dr. Hernandez. Interval history: This is a 77-year-old gentleman admitted with unstable angina , CAD, status post cardiac catheterization with 90% LAD stenosis. Evaluated by cardiothoracic surgery, scheduled for CABG on Thursday. Maintained on heparin drip. Reports midsternal chest pain earlier this morning, currently no chest pain palpitations no shortness of breath. Incentive spirometer up to 3800. Maintaining O2 sats of 98% on room air. Afebrile. Objective - Vital Signs Vital signs: Vital Signs Temp 97.7 F 09/06/18 15:23 Pulse 61 09/06/18 15:23 Resp 18 09/06/18 15:23 BP 121/61 09/06/18 15:23 Pulse Ox 97 09/06/18 15:23 Intake & Output 09/06/18 09/06/18 09/07/18 06:59 18:59 06:59 Intake Total 317.019 480.606 Balance 317.019 480.606 Weight 73.8 kg Intake: IV 180 .9 180 Intake, IV Titration 137.019 120.606 Amount Heparin Sod,Pork in 0.45% 137.019 120.606 NaCl 25,000 unit In 0.45 % NaCl 1 250ml.bag @ 12 UNITS/KG/HR 8.94 mls/hr IV .Q24H [facility] Rx#: [id number] Oral 360 Other: Voiding Method Toilet - Exam PHYSICAL EXAM: VITAL SIGNS: As above GENERAL: Sitting up in bed, no acute HEENT: Conjunctivae normal. eyes normal. Oral mucosa moist NECK: No JVD. No thyroid enlargement. No LNs CARDIOVASCULAR: S1, S2 muffled. No murmur RESPIRATION: Breath sounds diminished in the bases. No rhonchi or crackles. No bronchial breathing. ABDOMEN: Soft, nontender . No guarding. no masses palpable. Bowel sounds heard. LEGS: No edema. no swelling PSYCHIATRY: Alert and oriented -3, mood and affect normal. NERVOUS SYSTEM: Cranial N 2-12 grossly normal. Moves all 4 limbs. Diffuse weakness No focal deficits. No sensory deficit. Skin: no ulcer no rash Joints: No active swelling. No inflammation. Lymphatic system. No LN neck axilla or groin. - Labs CBC & Chem 7: 09/07/18 06:15 09/07/18 06:15 Labs: Abnormal Lab Results - Last 24 Hours (Table) 09/05/18 09/06/18 09/06/18 Range/Units 20:57 05:44 05:44 APTT 116.1 H* (22.0-30.0) sec Chloride 112 H (98-107) mmol/L Glucose 134 H (74-99) mg/dL POC Glucose (mg/dL) 158 H (75-99) mg/dL 09/06/18 09/06/18 09/06/18 Range/Units 05:49 11:32 14:25 APTT 94.1 H (22.0-30.0) sec Chloride (98-107) mmol/L Glucose (74-99) mg/dL POC Glucose (mg/dL) 129 H 125 H (75-99) mg/dL 09/06/18 Range/Units 16:44 APTT (22.0-30.0) sec Chloride (98-107) mmol/L Glucose (74-99) mg/dL POC Glucose (mg/dL) 205 H (75-99) mg/dL Assessment and Plan Assessment: -Unstable angina, CAD, status post cardiac catheterization with 90% LAD stenosis -History of DVT -Remote history of nicotine dependence -Diabetes mellitus Plan: Continue on current medication regime ,monitoring and symptomatic treatment. Maintain heparin drip, beta marline, nitro paste. Aggressive pulmonary toileting, with incentive spirometer reinforced. Follow closely with cardiology, cardiothoracic surgery, CABG scheduled for Thursday. Further recommendations to follow. The impression and plan of care has been dictated as directed. : I performed a history and examination of this patient, discussed the same with the dictator. I agree with the dictator's note ,documented as a scribe. Any additional findings or plans will be noted.
[2018-09-07] MEDS: METOPROLOL SUCCINATE (ER) 25 MG TAB.ER.24H PO SCH (10:42)
[2018-09-07] MEDS: ASPIRIN 81 MG PO SCH (10:43)
[2018-09-07] MEDS: ATORVASTATIN 80 MG TAB PO SCH (10:43)
[2018-09-07] MEDS: MUPIROCIN 2% OINT 22 GM TUBE TOPICAL SCH ×2 (10:43→21:14)
[2018-09-07 11:27] LABS: Glucose,Whole Blood 120 mg/dL (75-99)
--- NOTE | 2018-09-07 12:44 | P.PN ---
Subjective Progress Note Date: 09/07/18 Principal diagnosis: Coronary artery disease, awaiting bypass surgery. This is a very pleasant 77-year-old gentleman who follows with Dr. Molina as his primary care physician. 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 He had recently been having episodes of chest discomfort with exertion. Even walking out to his mailbox and back he would have to stop and rest until the pain subsided. He was seen and evaluated by Dr. Hood who directed him here to the emergency room on 09/02/2018. He had subsequently undergone cardiac catheterization and was found to have a 99% stenosis of the ostial portion of the left anterior descending artery. He does have a normal left ventricular systolic function. He was not a stent candidate and has been seen and evaluated by cardiothoracic surgery who are planning to do coronary artery bypass grafting on 09/08/2018. We are consulted for the same. The patient does have a 30 year pack per day smoking history however quit 30 years ago. He denies any history of COPD, emphysema or asthma. He is not utilizing any inhalers or oxygen in the outpatient setting. He has not been seen by a service coordinator elderly facility in the past. He is seen today in consultation on the selective care unit. He is currently awake and alert in no acute distress. He denies any chest discomfort currently. No shortness of breath, cough or congestion. No dizziness or lightheadedness. He does have preserved left ventricular systolic function with ejection fraction 55-60%. No valvular heart disease. White count 6.8. Hemoglobin 1213.3. Creatinine 0.73. FEV1 value greater than 2 L. Chest x-ray showed no acute cardiopulmonary process. Carotid Dopplers without significant stenosis. On 09/06/2018 patient seen in follow-up on selective care unit, he is in no distress, no dyspnea, did have a couple episodes of chest discomfort this morning, lasting under 5 minutes, continuously resolved, patient remains on heparin drip, and maintenance IV fluid. Room air pulse ox is 98%, afebrile. Lung sounds are clear to auscultation. Today's labs have been reviewed, and are unremarkable. No new chest x-rays today, she is preop PFT was reviewed, showed a mild restrictive defect. No acute complaints. Awaiting surgery on Thursday09/08/2017. Patient is seen today 09/07/2018 in follow-up on the selective care unit. He is currently sitting up in a chair at the bedside. He is awake and alert in no acute distress. He denies any chest pain, palpitations lightheadedness or dizziness. No shortness of breath, cough or congestion. He's been up ambulating without distress. Awaiting bypass surgery in the a.m. He is working well with the incentive spirometer pulling nearly 4 L. Obtaining good O2 saturations up to 100% on room air. Hemodynamically stable. Heparin drip continues. Objective - Vital Signs Vital signs: Vital Signs Temp 98.1 F 09/06/18 20:00 Pulse 62 09/07/18 08:00 Resp 15 09/07/18 04:00 BP 146/64 09/07/18 08:00 Pulse Ox 100 09/07/18 08:00 Intake & Output 09/06/18 09/07/18 09/07/18 18:59 06:59 18:59 Intake Total 480.606 114.854 240 Balance 480.606 114.854 240 Intake: Intake, IV Titration 120.606 114.854 Amount Heparin Sod,Pork in 0.45% 120.606 114.854 NaCl 25,000 unit In 0.45 % NaCl 1 250ml.bag @ 12 UNITS/KG/HR 8.94 mls/hr IV .Q24H [facility] Rx#: [id number] Oral 360 240 Other: Voiding Method Toilet # Voids 2 1 - Constitutional General appearance: Present: average body habitus, no acute distress - EENT Eyes: Present: EOMI, PERRLA ENT: Present: hearing grossly normal Ears: bilateral: normal - Neck Neck: Present: normal ROM Carotids: bilateral: upstroke normal Thyroid: bilateral: normal size - Respiratory Respiratory: bilateral: CTA - Cardiovascular Rhythm: regular Heart sounds: normal: S1, S2 - Gastrointestinal General gastrointestinal: Present: normal bowel sounds - Integumentary Integumentary: Present: normal turgor - Neurologic Neurologic: Present: CNII-XII intact - Musculoskeletal Musculoskeletal: Present: gait normal - Psychiatric Psychiatric: Present: A&O x's 3, appropriate affect, intact judgment & insight - Labs CBC & Chem 7: 09/07/18 06:15 09/07/18 06:15 Labs: Abnormal Lab Results - Last 24 Hours (Table) 09/06/18 09/06/18 09/06/18 Range/Units 14:25 16:44 20:52 APTT 94.1 H (22.0-30.0) sec Chloride (98-107) mmol/L Glucose (74-99) mg/dL POC Glucose (mg/dL) 205 H 186 H (75-99) mg/dL Total Protein (6.3-8.2) g/dL Albumin (3.5-5.0) g/dL Crossmatch 09/06/18 09/07/18 09/07/18 Range/Units 21:43 06:15 06:15 APTT 80.2 H 76.8 H (22.0-30.0) sec Chloride (98-107) mmol/L Glucose (74-99) mg/dL POC Glucose (mg/dL) (75-99) mg/dL Total Protein (6.3-8.2) g/dL Albumin (3.5-5.0) g/dL Crossmatch See Detail 09/07/18 09/07/18 09/07/18 Range/Units 06:15 06:37 11:25 APTT (22.0-30.0) sec Chloride 112 H (98-107) mmol/L Glucose 134 H (74-99) mg/dL POC Glucose (mg/dL) 124 H 120 H (75-99) mg/dL Total Protein 6.1 L (6.3-8.2) g/dL Albumin 3.4 L (3.5-5.0) g/dL Crossmatch Assessment and Plan Assessment: Impression: #1 Coronary artery disease with 99% stenosis involving the ostial portion of the left anterior descending artery. The plan is for coronary artery revascularization on 09/08/2017. #2 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 #3 Diabetes mellitus. #4 Osteoarthritis. #5 Sleep apnea. #6 Remote history of chronic tobacco dependence. Plan: The patient was seen and evaluated by Dr. Carreon. He is stable from the pulmonary standpoint. We will follow him in the immediate postoperative period and throughout the rest of his stay. I, the cosigning physician, performed a history & physical examination of the patient. Lungs sounds are clear. Maintaining good O2 saturations in the 90s on room air. I discussed the assessment and plan of care with my nurse practitioner, Debi Marin. I attest to the above note as dictated by her.
--- NOTE | 2018-09-07 15:26 | P.PN ---
Subjective Patient looks comfortable. No chest discomfort dizziness lightheadedness on Nitropaste and IV heparin awaiting bypass surgery tomorrow On examination blood pressures 107/50 mmHg Pulse rate in the 60s Breath sounds are clear no rhonchi no crackles Heart sounds S1-S2 normal no murmurs or gallops no rub Impression Ostial LAD stenosis/left main equivalent awaiting bypass surgery tomorrow currently on IV heparin and Nitropaste Continue current medications and proceed with surgery tomorrow Objective - Vital Signs Vital signs: Vital Signs Temp 98.1 F 09/06/18 20:00 Pulse 63 09/07/18 12:00 Resp 15 09/07/18 04:00 BP 107/50 09/07/18 12:00 Pulse Ox 97 09/07/18 12:00 Intake & Output 09/06/18 09/07/18 09/07/18 18:59 06:59 18:59 Intake Total 480.606 114.854 240 Balance 480.606 114.854 240 Intake: Intake, IV Titration 120.606 114.854 Amount Heparin Sod,Pork in 0.45% 120.606 114.854 NaCl 25,000 unit In 0.45 % NaCl 1 250ml.bag @ 12 UNITS/KG/HR 8.94 mls/hr IV .Q24H [facility] Rx#: [id number] Oral 360 240 Other: Voiding Method Toilet # Voids 2 1 - Labs CBC & Chem 7: 09/07/18 06:15 09/07/18 06:15 Labs: Abnormal Lab Results - Last 24 Hours (Table) 09/06/18 09/06/18 09/06/18 Range/Units 16:44 20:52 21:43 APTT 80.2 H (22.0-30.0) sec Chloride (98-107) mmol/L Glucose (74-99) mg/dL POC Glucose (mg/dL) 205 H 186 H (75-99) mg/dL Total Protein (6.3-8.2) g/dL Albumin (3.5-5.0) g/dL Crossmatch 09/07/18 09/07/18 09/07/18 Range/Units 06:15 06:15 06:15 APTT 76.8 H (22.0-30.0) sec Chloride 112 H (98-107) mmol/L Glucose 134 H (74-99) mg/dL POC Glucose (mg/dL) (75-99) mg/dL Total Protein 6.1 L (6.3-8.2) g/dL Albumin 3.4 L (3.5-5.0) g/dL Crossmatch See Detail 09/07/18 09/07/18 09/07/18 Range/Units 06:37 11:25 12:41 APTT 49.6 H (22.0-30.0) sec Chloride (98-107) mmol/L Glucose (74-99) mg/dL POC Glucose (mg/dL) 124 H 120 H (75-99) mg/dL Total Protein (6.3-8.2) g/dL Albumin (3.5-5.0) g/dL Crossmatch
[2018-09-07 16:25] LABS: Glucose,Whole Blood 174 mg/dL (75-99)
--- NOTE | 2018-09-07 19:49 | P.PN ---
Subjective Progress Note Date: 09/07/18 Progress note being dictated for Dr. Hernandez. Interval history: This is a 77-year-old gentleman admitted with unstable angina , CAD, status post cardiac catheterization with 90% LAD stenosis. Evaluated by cardiothoracic surgery, scheduled for CABG on Thursday. Maintained on heparin drip. Reports midsternal chest pain earlier this morning, currently no chest pain palpitations no shortness of breath. Incentive spirometer up to 3800. Maintaining O2 sats of 98% on room air. Afebrile. 09/07/18 sitting up in chair, no further chest pain reported. Denies lightheadedness dizziness or focal deficits. IS up to 4000. Ambulating in hallway, tolerating exertion well. CABG scheduled for tomorrow. Objective - Vital Signs Vital signs: Vital Signs Temp 98.1 F 09/06/18 20:00 Pulse 69 09/07/18 04:00 Resp 15 09/07/18 04:00 BP 141/71 09/07/18 04:00 Pulse Ox 97 09/07/18 04:00 Intake & Output 09/06/18 09/07/18 09/07/18 18:59 06:59 18:59 Intake Total 480.606 114.854 Balance 480.606 114.854 Intake: Intake, IV Titration 120.606 114.854 Amount Heparin Sod,Pork in 0.45% 120.606 114.854 NaCl 25,000 unit In 0.45 % NaCl 1 250ml.bag @ 12 UNITS/KG/HR 8.94 mls/hr IV .Q24H [facility] Rx#: [id number] Oral 360 Other: Voiding Method Toilet # Voids 2 - Exam PHYSICAL EXAM: VITAL SIGNS: As above GENERAL: Sitting up in chair, no acute distress HEENT: Conjunctivae normal. eyes normal. Oral mucosa moist NECK: No JVD. No thyroid enlargement. No LNs CARDIOVASCULAR: S1, S2 muffled. No murmur RESPIRATION: Breath sounds diminished in the bases. No rhonchi or crackles. No bronchial breathing. ABDOMEN: Soft, nontender . No guarding. no masses palpable. Bowel sounds heard. LEGS: No edema. no swelling PSYCHIATRY: Alert and oriented -3, mood and affect normal. NERVOUS SYSTEM: Cranial N 2-12 grossly normal. Moves all 4 limbs. No focal deficits Skin: no ulcer no rash Joints: No active swelling. No inflammation. Lymphatic system. No LN neck axilla or groin. - Labs CBC & Chem 7: 09/07/18 06:15 09/07/18 06:15 Labs: Abnormal Lab Results - Last 24 Hours (Table) 09/06/18 09/06/18 09/06/18 Range/Units 11:32 14:25 16:44 APTT 94.1 H (22.0-30.0) sec Chloride (98-107) mmol/L Glucose (74-99) mg/dL POC Glucose (mg/dL) 125 H 205 H (75-99) mg/dL Total Protein (6.3-8.2) g/dL Albumin (3.5-5.0) g/dL 09/06/18 09/06/18 09/07/18 Range/Units 20:52 21:43 06:15 APTT 80.2 H 76.8 H (22.0-30.0) sec Chloride (98-107) mmol/L Glucose (74-99) mg/dL POC Glucose (mg/dL) 186 H (75-99) mg/dL Total Protein (6.3-8.2) g/dL Albumin (3.5-5.0) g/dL 09/07/18 09/07/18 Range/Units 06:15 06:37 APTT (22.0-30.0) sec Chloride 112 H (98-107) mmol/L Glucose 134 H (74-99) mg/dL POC Glucose (mg/dL) 124 H (75-99) mg/dL Total Protein 6.1 L (6.3-8.2) g/dL Albumin 3.4 L (3.5-5.0) g/dL Assessment and Plan Assessment: -Unstable angina, CAD, status post cardiac catheterization with 90% LAD stenosis -History of DVT -Remote history of nicotine dependence -Diabetes mellitus Plan: Continue on current medication regime ,monitoring and symptomatic treatment. Continue with aggressive pulmonary toileting. Maintain heparin drip , beta marline, nitro. CABG scheduled for tomorrow morning. Follow closely with multiple consults.Further recommendations to follow. The impression and plan of care has been dictated as directed. : I performed a history and examination of this patient, discussed the same with the dictator. I agree with the dictator's note ,documented as a scribe. Any additional findings or plans will be noted.
[2018-09-07 21:22] LABS: Glucose,Whole Blood 171 mg/dL (75-99)
[2018-09-08] MEDS: NITROGLYCERIN OINT 1 INCH/GM PACKET TOPICAL SCH (00:18)
[2018-09-08] MEDS ORDERED: NITROGLYCERIN SL TABS 0.4 MG TAB SUBLINGUAL ONE (03:46)
[2018-09-08] MEDS ORDERED: NITROGLYCERIN SL TABS 0.4 MG TAB SUBLINGUAL STA (04:04)
[2018-09-08] MEDS ORDERED: NITROGLYCERIN OINT 1 INCH/GM PACKET TOPICAL SCH (04:15)
[2018-09-08] MEDS ORDERED: HEPARIN SODIUM 1,000 UN/ML (10ML VL) IV ONE (05:00)
[2018-09-08] MEDS ORDERED: CALCIUM CHLORIDE 100 MG/ML 10 ML SYRINGE IVP ONE (05:00)
[2018-09-08] MEDS ORDERED: ALBUMIN HUMAN 25% 50 ML in EMPTY BAG 1 BAG IVPB ONE (05:00)
[2018-09-08] MEDS ORDERED: NOREPINEPHRINE 4 MG in SODIUM CHLORIDE 0.9% 250 ML IV SCH (05:00)
[2018-09-08] MEDS ORDERED: CLEVIDIPINE BUTYRATE 25 MG in EMPTY BAG 1 BAG IV ONE (05:00)
[2018-09-08] MEDS ORDERED: HEPARIN SODIUM,PORCINE 5,000 UNIT in SODIUM CHLORIDE 0.9% 500 ML 500 ML IV ONE (05:00)
[2018-09-08] MEDS ORDERED: PHENYLEPHRINE 40 MG in SODIUM CHLORIDE 0.9% 250 ML IV ONE (05:00)
[2018-09-08] MEDS ORDERED: INSULIN REGULAR 100 UNIT in SODIUM CHLORIDE 0.9% 100 ML IV ONE (05:00)
[2018-09-08] MEDS ORDERED: DEXTROSE 5% IN WATER 1,000 ML with POTASSIUM CHLORIDE 25 MEQ, SODIUM CHLORIDE 2.5MEQ/ML... IV SCH ×6 (05:00)
[2018-09-08] MEDS ORDERED: NITROGLYCERIN-D5W PMX 50 MG in DEXTROSE/WATER 1 250ML.BAG IV ONE (05:00)
[2018-09-08] MEDS ORDERED: TRANEXAMIC ACID 2,000 MG in SODIUM CHLORIDE 0.9% 180 ML IV ONE (05:00)
[2018-09-08] MEDS ORDERED: MAGNESIUM SULFATE SYG 4.06 MEQ/ML SYRINGE IV ONE (05:00)
[2018-09-08] MEDS ORDERED: PROTAMINE SULFATE 10 MG/ML 25 ML VIAL IV ONE ×2 (05:00→09:15)
[2018-09-08] MEDS ORDERED: PAPAVERINE 360 MG in SODIUM CHLORIDE 0.9% 90 ML IV ONE (05:00)
[2018-09-08] MEDS ORDERED: MANNITOL 25% 12.5 GM/50 ML VIAL IV ONE ×2 (05:00)
[2018-09-08] MEDS ORDERED: NITROGLYCERIN-D5W PMX 25 MG/250 ML BTL IV ONE (05:00)
[2018-09-08] MEDS ORDERED: SODIUM BICARB 8.4% 50 ML SYR (1 MEQ/ML) IV ONE (05:00)
[2018-09-08] MEDS ORDERED: CHLORHEXIDINE GLUCONATE 15 ML CUP MUCOUS MEM ONE (05:00)
[2018-09-08] MEDS ORDERED: PHENYLEPHRINE-0.9% NACL SYG 1 MG/10 ML SYRINGE IV ONE ×4 (05:00)
[2018-09-08] MEDS ORDERED: DEXTROSE 5% IN WATER 1,000 ML with POTASSIUM CHLORIDE 110 MEQ, MAGNESIUM SULFATE 16 MEQ... IV SCH ×5 (05:00)
[2018-09-08] MEDS ORDERED: LACTATED RINGERS 1,000 ML IV SCH (05:00)
[2018-09-08] MEDS ORDERED: PROPOFOL 1,000 MG in EMPTY BAG 1 BAG IV ONE (05:00)
[2018-09-08] MEDS ORDERED: PROTAMINE SULFATE 250 MG in EMPTY BAG 1 BAG IV ONE (05:00)
[2018-09-08] MEDS ORDERED: ALBUMIN HUMAN 5% 500 ML in EMPTY BAG 1 BAG IVPB ONE ×6 (05:00)
[2018-09-08] MEDS ORDERED: ceFAZolin 2 GM in SODIUM CHLORIDE 0.9% 30 ML IVPB ONE (05:00)
[2018-09-08] MEDS ORDERED: METOPROLOL TARTRATE 12.5 MG TAB PO ONE (05:00)
[2018-09-08] MEDS ORDERED: ASPIRIN 325 MG TAB PO ONE (05:00)
[2018-09-08] MEDS ORDERED: ceFAZolin 2,000 MG in SODIUM CHLORIDE 0.9% 30 ML IVPB ONE (05:00)
[2018-09-08] MEDS ORDERED: ATORVASTATIN 10 MG TAB PO ONE (05:00)
[2018-09-08] MEDS: ATORVASTATIN 80 MG TAB PO SCH (05:16)
[2018-09-08 05:19] LABS: Basophils % (A) 1 %; Eosinophils # (A) 0.2 k/uL (0-0.7); Eosinophils % (A) 3 %; HCT 37.9 % (39.0-53.0); HGB 12.7 gm/dL (13.0-17.5); Lymphocytes # (A) 1.4 k/uL (1.0-4.8); Lymphocytes % (A) 25 %; MCH 31.6 pg (25.0-35.0); MCHC 33.6 g/dL (31.0-37.0); Monocytes # (A) 0.4 k/uL (0-1.0); Monocytes % (A) 7 %; Neutrophils # (A) 3.5 k/uL (1.3-7.7); Neutrophils % (A) 62 %; Platelet Count 147 k/uL (150-450); RBC 4.03 m/uL (4.30-5.90); RDW 13.9 % (11.5-15.5); WBC 5.7 k/uL (3.8-10.6)
[2018-09-08 05:30] LABS: ALT 45 U/L (21-72); AST 27 U/L (17-59); Albumin 3.2 g/dL (3.5-5.0); Alkaline Phosphatase 47 U/L (38-126); Anion Gap 5 mmol/L; Blood Urea Nitrogen 14 mg/dL (9-20); Calcium 8.4 mg/dL (8.4-10.2); Carbon Dioxide 28 mmol/L (22-30); Chloride 111 mmol/L (98-107); Glucose 150 mg/dL (74-99); Potassium 3.8 mmol/L (3.5-5.1); Sodium 144 mmol/L (137-145); Total Bilirubin 0.5 mg/dL (0.2-1.3); Total Protein 5.7 g/dL (6.3-8.2)
[2018-09-08 06:27] LABS: Glucose,Whole Blood 150 mg/dL (75-99)
[2018-09-08] MEDS: INSULIN ASPART 100 UNIT/ML 1 ML 10 ML VIAL SQ SCH (07:00)
[2018-09-08] MEDS ORDERED: TRANEXAMIC ACID 1,000 MG/10 ML VIAL ONE (09:15)
[2018-09-08] MEDS ORDERED: PROPOFOL 10 MG/ML 20 ML VIAL IV ONE (09:15)
[2018-09-08] MEDS ORDERED: HEPARIN SODIUM,PORCINE 10,000 UNIT/ML 1 ML VIAL ONE (09:15)
[2018-09-08] MEDS ORDERED: LIDOCAINE 2% SYG (PF) 100 MG/5 ML ONE (09:15)
[2018-09-08] MEDS ORDERED: ALBUMIN HUMAN 5% 500 ML VIAL IVPB ONE (09:15)
[2018-09-08] MEDS ORDERED: MAGNESIUM SULFATE 4 MEQ/ML 10ML VIAL ONE (09:15)
[2018-09-08] MEDS ORDERED: VECURONIUM 10 MG VIAL IV ONE (09:15)
[2018-09-08] MEDS ORDERED: LACTATED RINGERS 1,000 ML BAG IV ONE (09:15)
[2018-09-08] MEDS ORDERED: fentaNYL (PF) 50 MCG/ML 50 ML VIAL ONE (09:15)
[2018-09-08] MEDS ORDERED: MIDAZOLAM 2 MG/2 ML VIAL ONE (09:15)
[2018-09-08] MEDS ORDERED: SODIUM CHLORIDE 0.9% 250 ML BAG ONE (09:15)
[2018-09-08] MEDS ORDERED: fentaNYL (PF) 50 MCG/ML 2 ML AMP ONE (09:15)
[2018-09-08] MEDS ORDERED: ELECTROLYTE-R (PH 7.4) 1,000 ML IV.SOLN IV ONE (09:15)
--- NOTE | 2018-09-08 09:43 | P.VSCSTY ---
Greater Saphenous Vein Mapping This is bilateral lower extremity greater saphenous vein mapping. Date of service 09/03/2018 Vein quality and ultrasound appearance no intraluminal thrombus or wall changes are seen. Vein size groin right 6.6 x 6.4 groin left 6.7 x 7.8 High thigh right 7.3 x 6.9 high thigh left 6.9 x 6.0 Mid thigh right 6.1 x 6.1 mid thigh left 5.3 x 6.4 Above-knee right 5.8 x 6.7 above-knee left 5.3 x 5.8 Below knee right 5.8 x 6.1 below-knee left 5.4 x 6.1 Mid calf right 4.8 x 5.1 mid calf left 3.2 x 3.7 Ankle right 3.4 x 4.1 ankle left 3.4 x 4.7 Impression usable bilateral greater saphenous vein. Lower leg somewhat better as a size match for coronaries, especially left lower leg..
[2018-09-08 09:52] LABS: ABG Base Excess 0.5 mmol/L; ABG HCO3 25 mmol/L (21-25); ABG PCO2 39 mmHg (35-45); ABG PH 7.42 (7.35-7.45); ABG PO2 383 mmHg (83-108); ABG Potassium Whole Blood 3.9 mmol/L (3.4-4.5); ABG Sodium Whole Blood 142 mmol/L (135-146); ABG TCO2 26 mmol/L (19-24)
[2018-09-08] MEDS: ceFAZolin 1,000 MG in SODIUM CHLORIDE 0.9% IRRIGATIO 1,000 ML IRRIGATION ONE ×2 (10:23→12:58)
[2018-09-08 10:49] LABS: ABG Base Excess -0.7 mmol/L; ABG HCO3 25 mmol/L (21-25); ABG PCO2 45 mmHg (35-45); ABG PH 7.35 (7.35-7.45); ABG PO2 305 mmHg (83-108); ABG Potassium Whole Blood 3.9 mmol/L (3.4-4.5); ABG Sodium Whole Blood 142 mmol/L (135-146); ABG TCO2 27 mmol/L (19-24)
[2018-09-08 11:41] LABS: ABG Base Excess 0.1 mmol/L; ABG HCO3 24 mmol/L (21-25); ABG PCO2 36 mmHg (35-45); ABG PH 7.43 (7.35-7.45); ABG Potassium Whole Blood 5.2 mmol/L (3.4-4.5); ABG Sodium Whole Blood 136 mmol/L (135-146); ABG TCO2 25 mmol/L (19-24)
[2018-09-08 12:12] LABS: ABG Base Excess -0.2 mmol/L; ABG HCO3 24 mmol/L (21-25); ABG PCO2 38 mmHg (35-45); ABG PH 7.41 (7.35-7.45); ABG PO2 381 mmHg (83-108); ABG Potassium Whole Blood 4.2 mmol/L (3.4-4.5); ABG Sodium Whole Blood 138 mmol/L (135-146); ABG TCO2 26 mmol/L (19-24)
[2018-09-08 13:15] LABS: ABG Base Excess -1.3 mmol/L; ABG HCO3 24 mmol/L (21-25); ABG PCO2 43 mmHg (35-45); ABG PH 7.36 (7.35-7.45); ABG Potassium Whole Blood 3.5 mmol/L (3.4-4.5); ABG Sodium Whole Blood 140 mmol/L (135-146); ABG TCO2 26 mmol/L (19-24)
[2018-09-08 13:21] LABS: ABG PO2 >420 mmHg (83-108)
[2018-09-08 13:24] LABS: ABG PO2 >420 mmHg (83-108)
[2018-09-08] MEDS ORDERED: ALPRAZolam 0.25 MG TAB PO PRN (13:57)
[2018-09-08] MEDS ORDERED: Magnesium Replacement Protocol 1 EACH MISC MISCELLANE PRN (13:57)
[2018-09-08] MEDS ORDERED: Phosphorus Replacement Protoco 1 EACH MISC MISCELLANE PRN (13:57)
[2018-09-08] MEDS ORDERED: METOCLOPRAMIDE 5 MG/ML 2 ML VIAL IVP PRN (13:57)
[2018-09-08] MEDS ORDERED: BENZOCAINE/MENTHOL LOZENG 1 EACH LOZENGE MUCOUS MEM PRN (13:57)
[2018-09-08] MEDS ORDERED: Potassium Replacement Protocol 1 EACH MISC MISCELLANE PRN (13:57)
[2018-09-08] MEDS ORDERED: hydrALAZINE HCL 20 MG/ML 1 ML VIAL IVP PRN ×3 (13:57→16:07)
[2018-09-08] MEDS ORDERED: DEXTROSE 5% IN WATER 100 ML with AMIODARONE 150 MG IV PRN (13:57)
[2018-09-08] MEDS ORDERED: ONDANSETRON 4 MG/2 ML VIAL IVP PRN (13:57)
[2018-09-08] MEDS ORDERED: IPRATROPIUM-ALBUTEROL 3 ML NEB INHALATION PRN (13:57)
[2018-09-08] MEDS ORDERED: PROPOFOL 1,000 MG in EMPTY BAG 1 BAG IV SCH (14:00)
[2018-09-08] MEDS ORDERED: NITROGLYCERIN-D5W PMX 50 MG in DEXTROSE/WATER 1 250ML.BAG IV SCH (14:00)
[2018-09-08] MEDS ORDERED: AMIODARONE 450 MG in DEXTROSE 5% IN WATER 250 ML IV PRN ×2 (14:30)
[2018-09-08 14:31] LABS: Glucose,Whole Blood 116 mg/dL (75-99)
[2018-09-08 14:43] LABS: Basophils % (A) 0 %; Eosinophils # (A) 0.1 k/uL (0-0.7); Eosinophils % (A) 1 %; Lymphocytes # (A) 0.8 k/uL (1.0-4.8); Lymphocytes % (A) 11 %; MCH 31.9 pg (25.0-35.0); MCHC 33.9 g/dL (31.0-37.0); MCV 94.1 fL (80.0-100.0); Mean Platelet Volume 8.8; Monocytes # (A) 0.4 k/uL (0-1.0); Monocytes % (A) 5 %; Neutrophils # (A) 6.5 k/uL (1.3-7.7); Neutrophils % (A) 82 %; RBC 2.87 m/uL (4.30-5.90); RDW 14.1 % (11.5-15.5); WBC 7.9 k/uL (3.8-10.6)
--- NOTE | 2018-09-08 14:49 | XR ---
EXAMINATION TYPE: XR chest 1V portable DATE OF EXAM: 09/08/2018 COMPARISON: 09/02/2018 HISTORY: Status post cardiac surgery TECHNIQUE: Single frontal view of the chest is obtained. FINDINGS: New linear left lower lung platelike atelectasis is present. There appears to be post CABG changes of the chest. Mediastinal drains, epicardial pacing leads, left-sided thoracostomy tube, end otracheal tube, enteric tube, and [place] catheter all appear appropriately positioned. The endotra cheal tube terminates at the level of the aortic arch and enteric tube has its fenestrated portion be yond the gastroesophageal junction. Right lung remains clear. Cardiac silhouette is upper limits of n ormal in size. No pneumothorax or pulmonary vascular congestion. IMPRESSION: Postoperative changes as described above with appropriately placed lines and tubes. New left midlung subsegmental atelectasis.
[2018-09-08 14:51] LABS: Ionized Calcium 4.7 mg/dL (4.5-5.3)
[2018-09-08 14:54] LABS: INR 1.1 (<1.2); Partial Thromboplastin Time 31.8 sec (22.0-30.0); Prothrombin Time 11.2 sec (9.0-12.0)
[2018-09-08 14:55] LABS: HGB 9.1 gm/dL (13.0-17.5)
[2018-09-08] MEDS ORDERED: CALCIUM CHLORIDE 1,000 MG in SODIUM CHLORIDE 0.9% 100 ML IV PRN (15:00)
[2018-09-08] MEDS: CLEVIDIPINE BUTYRATE 25 MG in EMPTY BAG 1 BAG IV SCH ×4 (15:00→23:50)
[2018-09-08 15:02] LABS: ALT 33 U/L (21-72); AST 29 U/L (17-59); Albumin 2.5 g/dL (3.5-5.0); Alkaline Phosphatase 21 U/L (38-126); Anion Gap 3 mmol/L; Blood Urea Nitrogen 11 mg/dL (9-20); Calcium 7.6 mg/dL (8.4-10.2); Carbon Dioxide 26 mmol/L (22-30); Chloride 112 mmol/L (98-107); Glucose 112 mg/dL (74-99); Magnesium 2.7 mg/dL (1.6-2.3); Potassium 4.3 mmol/L (3.5-5.1); Sodium 141 mmol/L (137-145); Total Bilirubin 0.4 mg/dL (0.2-1.3); Total Protein 4.3 g/dL (6.3-8.2)
[2018-09-08 15:08] LABS: Platelet Count 76 k/uL (150-450)
[2018-09-08 15:15] LABS: ABG Base Excess 1.1 mmol/L; ABG HCO3 26 mmol/L (21-25); ABG PCO2 41 mmHg (35-45); ABG PH 7.41 (7.35-7.45); ABG PO2 394 mmHg (83-108); ABG TCO2 27 mmol/L (19-24)
[2018-09-08 15:27] LABS: Glucose,Whole Blood 103 mg/dL (75-99)
[2018-09-08] MEDS: IPRATROPIUM-ALBUTEROL 3 ML NEB INHALATION SCH ×2 (15:47→19:14)
--- NOTE | 2018-09-08 15:47 | P.PN ---
Subjective Progress Note Date: 09/08/18 Principal diagnosis: Coronary artery disease, awaiting bypass surgery This is a very pleasant 77-year-old gentleman who follows with Dr. Molina as his primary care physician. 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 He had recently been having episodes of chest discomfort with exertion. Even walking out to his mailbox and back he would have to stop and rest until the pain subsided. He was seen and evaluated by Dr. Hood who directed him here to the emergency room on 09/02/2018. He had subsequently undergone cardiac catheterization and was found to have a 99% stenosis of the ostial portion of the left anterior descending artery. He does have a normal left ventricular systolic function. He was not a stent candidate and has been seen and evaluated by cardiothoracic surgery who are planning to do coronary artery bypass grafting on 09/08/2018. We are consulted for the same. The patient does have a 30 year pack per day smoking history however quit 30 years ago. He denies any history of COPD, emphysema or asthma. He is not utilizing any inhalers or oxygen in the outpatient setting. He has not been seen by a mobility specialist in the past. He is seen today in consultation on the selective care unit. He is currently awake and alert in no acute distress. He denies any chest discomfort currently. No shortness of breath, cough or congestion. No dizziness or lightheadedness. He does have preserved left ventricular systolic function with ejection fraction 55-60%. No valvular heart disease. White count 6.8. Hemoglobin 1213.3. Creatinine 0.73. FEV1 value greater than 2 L. Chest x-ray showed no acute cardiopulmonary process. Carotid Dopplers without significant stenosis. On 09/06/2018 patient seen in follow-up on selective care unit, he is in no distress, no dyspnea, did have a couple episodes of chest discomfort this morning, lasting under 5 minutes, continuously resolved, patient remains on heparin drip, and maintenance IV fluid. Room air pulse ox is 98%, afebrile. Lung sounds are clear to auscultation. Today's labs have been reviewed, and are unremarkable. No new chest x-rays today, she is preop PFT was reviewed, showed a mild restrictive defect. No acute complaints. Awaiting surgery on Thursday09/08/2017. Patient is seen today 09/07/2018 in follow-up on the selective care unit. He is currently sitting up in a chair at the bedside. He is awake and alert in no acute distress. He denies any chest pain, palpitations lightheadedness or dizziness. No shortness of breath, cough or congestion. He's been up ambulating without distress. Awaiting bypass surgery in the a.m. He is working well with the incentive spirometer pulling nearly 4 L. Obtaining good O2 saturations up to 100% on room air. Hemodynamically stable. Heparin drip continues. On 09/08/2018 patient seen in follow-up in the intensive care units status post coronary bypass grafting, with DAVE to LAD, and SVG to the diagonal branch. Patient sedated, intubated, on mechanical ventilator, current settings are assist-control mode with a rate of 12, tidal volume of 600, FiO2 of 50% and PEEP of 5. Postoperative blood gases showed pO2 of 394, pCO2 41, and pH of 7.41 , FiO2 was dropped down to 50%. CBC showed white blood count of 7.9, hemoglobin of 9.1, sodium of 141, potassium is 4.3, chloride is 112, BUN of 11, creatinine of 0.66. Lung sounds are clear to auscultation, midline incision is clean dry and intact, approximated, covered with surgical dressing, AV wires to an external pacemaker with a backup rate, patient is sinus rhythm with a rate of 71 BPM, blood pressures 119/60, PA pressures of 22/13, cardiac output is 12.9 , and cardiac index of 7.5. 2 mediastinal chest tubes with a proximal 110 cigarettes output in the Pleur-evac, and there is occasional mild air leak noted , left pleural chest tube with of 40 mL of sanguinous output. IV fluids include lactated Ringer's at a rate of 50, nitroglycerin at 5 mics per minute, Diprivan, Cleviprex at 2 mg/h, insulin to be started for blood sugar over 110. Patient is nonoliguric. Postop chest x-ray was reviewed by Dr. Moore, showed mediastinal drains, epicardial pacing leads, left-sided thoracostomy tube endotracheal tube NG tube Lucas-Kimberly catheter in appropriate positions, no pneumothorax, or pulmonary vascular congestion. Left mid lung subsegmental atelectasis noted. Objective - Vital Signs Vital signs: Vital Signs Temp 97.7 F 09/08/18 04:00 Pulse 69 09/08/18 15:00 Resp 12 09/08/18 15:00 BP 110/59 09/08/18 15:00 Pulse Ox 100 09/08/18 15:00 Intake & Output 09/07/18 09/08/18 09/08/18 18:59 06:59 18:59 Intake Total 340 80 173.633 Output Total 1950 Balance 340 80 -1776.367 Weight 74.7 kg Intake: IV 80 63 .9 80 Intake, IV Titration 110.633 Amount Heparin Sod,Pork in 0.45% 110.633 NaCl 25,000 unit In 0.45 % NaCl 1 250ml.bag @ 12 UNITS/KG/HR 8.94 mls/hr IV .Q24H CONI Rx#: [id number] Oral 340 Output: Urine 950 Estimated Blood Loss 1000 Other: Voiding Method Toilet # Voids 4 0 ABP, PAP, CO, CI - Last Documented Arterial Blood Pressure 133/49 Pulmonary Artery Pressure 21/10 Cardiac Output 12.4 Cardiac Index 7.3 - Exam GENERAL EXAM: Sedated, intubated 77-year-old white male HEAD: Normocephalic/atraumatic. EYES: Normal reaction of pupils, equal size. Conjunctiva pink, sclera white. NOSE: Clear with pink turbinates. THROAT: No erythema or exudates. NECK: No masses, no JVD, no thyroid enlargement, no adenopathy. CHEST: No chest wall deformity. Symmetrical expansion. Midsternal incision clean dry and intact, approximated, covered with a surgical dressing, 2 mediastinal and left pleural chest tubes are in place, connected to Pleur-evac and wall suction with small to moderate amount of sanguinous output in the Pleur -evac's. Small air leak noted occasionally in the mediastinal Pleur-evac. AV wires to external pacemaker, with backup rate, intrinsic rhythm is sinus rhythm with a rate of 71 BPM LUNGS: Equal air entry with no crackles, wheeze, rhonchi or dullness. CVS: Regular rate and rhythm, normal S1 and S2, no gallops, no murmurs, no rubs ABDOMEN: Soft, nontender. No hepatosplenomegaly, normal bowel sounds, no guarding or rigidity. EXTREMITIES: No clubbing, no edema, no cyanosis, 2+ pulses and upper and lower extremities. SCDs are in place on bilateral lower extremities MUSCULOSKELETAL: Muscle strength and tone normal. SPINE: No scoliosis or deformity SKIN: No rashes CENTRAL NERVOUS SYSTEM: Sedated, intubated. No focal deficits, tone is normal in all 4 extremities. - Labs CBC & Chem 7: 09/08/18 14:25 09/08/18 14:25 Labs: Abnormal Lab Results - Last 24 Hours (Table) 09/07/18 09/07/18 09/07/18 Range/Units 06:15 16:23 21:19 RBC (4.30-5.90) m/uL Hgb (13.0-17.5) gm/dL Hct (39.0-53.0) % Plt Count (150-450) k/uL Lymphocytes # (1.0-4.8) k/uL APTT (22.0-30.0) sec ABG pO2 (83-108) mmHg ABG HCO3 (21-25) mmol/L ABG Total CO2 (19-24) mmol/L ABG O2 Saturation (94-97) % ABG Hematocrit (34.0-46.0) % ABG Potassium (3.4-4.5) mmol/L ABG Ionized Calcium (4.5-5.3) mg/dL ABG Glucose (75-99) mg/dL ABG Lactic Acid (0.5-1.6) mmol/L Hemoglobin (13.0-17.5) gm/dL Chloride (98-107) mmol/L Glucose (74-99) mg/dL POC Glucose (mg/dL) 174 H 171 H (75-99) mg/dL Calcium (8.4-10.2) mg/dL Magnesium (1.6-2.3) mg/dL Alkaline Phosphatase (38-126) U/L Total Protein (6.3-8.2) g/dL Albumin (3.5-5.0) g/dL Arterial Blood Potassium (3.4-4.5) mmol/L Arterial Blood Glucose (75-99) mg/dL Crossmatch See Detail 09/08/18 09/08/18 09/08/18 Range/Units 04:17 04:47 04:47 RBC 4.03 L (4.30-5.90) m/uL Hgb 12.7 L (13.0-17.5) gm/dL Hct 37.9 L (39.0-53.0) % Plt Count 147 L (150-450) k/uL Lymphocytes # (1.0-4.8) k/uL APTT 37.8 H (22.0-30.0) sec ABG pO2 (83-108) mmHg ABG HCO3 (21-25) mmol/L ABG Total CO2 (19-24) mmol/L ABG O2 Saturation (94-97) % ABG Hematocrit (34.0-46.0) % ABG Potassium (3.4-4.5) mmol/L ABG Ionized Calcium (4.5-5.3) mg/dL ABG Glucose (75-99) mg/dL ABG Lactic Acid (0.5-1.6) mmol/L Hemoglobin (13.0-17.5) gm/dL Chloride 111 H (98-107) mmol/L Glucose 150 H (74-99) mg/dL POC Glucose (mg/dL) (75-99) mg/dL Calcium (8.4-10.2) mg/dL Magnesium (1.6-2.3) mg/dL Alkaline Phosphatase (38-126) U/L Total Protein 5.7 L (6.3-8.2) g/dL Albumin 3.2 L (3.5-5.0) g/dL Arterial Blood Potassium (3.4-4.5) mmol/L Arterial Blood Glucose (75-99) mg/dL Crossmatch 09/08/18 09/08/18 09/08/18 Range/Units 06:26 09:51 10:48 RBC (4.30-5.90) m/uL Hgb (13.0-17.5) gm/dL Hct (39.0-53.0) % Plt Count (150-450) k/uL Lymphocytes # (1.0-4.8) k/uL APTT (22.0-30.0) sec ABG pO2 383 H 305 H (83-108) mmHg ABG HCO3 (21-25) mmol/L ABG Total CO2 26 H 27 H (19-24) mmol/L ABG O2 Saturation 100.0 H 100.0 H (94-97) % ABG Hematocrit (34.0-46.0) % ABG Potassium (3.4-4.5) mmol/L ABG Ionized Calcium 4.4 L 4.4 L (4.5-5.3) mg/dL ABG Glucose 136 H 156 H (75-99) mg/dL ABG Lactic Acid (0.5-1.6) mmol/L Hemoglobin 12.4 L 11.4 L (13.0-17.5) gm/dL Chloride (98-107) mmol/L Glucose (74-99) mg/dL POC Glucose (mg/dL) 150 H (75-99) mg/dL Calcium (8.4-10.2) mg/dL Magnesium (1.6-2.3) mg/dL Alkaline Phosphatase (38-126) U/L Total Protein (6.3-8.2) g/dL Albumin (3.5-5.0) g/dL Arterial Blood Potassium (3.4-4.5) mmol/L Arterial Blood Glucose 136 H 156 H (75-99) mg/dL Crossmatch 09/08/18 09/08/18 09/08/18 Range/Units 11:39 12:11 13:14 RBC (4.30-5.90) m/uL Hgb (13.0-17.5) gm/dL Hct (39.0-53.0) % Plt Count (150-450) k/uL Lymphocytes # (1.0-4.8) k/uL APTT (22.0-30.0) sec ABG pO2 >420 H 381 H >420 H (83-108) mmHg ABG HCO3 (21-25) mmol/L ABG Total CO2 25 H 26 H 26 H (19-24) mmol/L ABG O2 Saturation 100.0 H 100.0 H 100.0 H (94-97) % ABG Hematocrit 23 L 23 L 27 L (34.0-46.0) % ABG Potassium 5.2 H (3.4-4.5) mmol/L ABG Ionized Calcium 4.0 L 4.1 L 4.3 L (4.5-5.3) mg/dL ABG Glucose 207 H 202 H 156 H (75-99) mg/dL ABG Lactic Acid 2.1 H 3.4 H* (0.5-1.6) mmol/L Hemoglobin 7.6 L 7.6 L 8.8 L (13.0-17.5) gm/dL Chloride (98-107) mmol/L Glucose (74-99) mg/dL POC Glucose (mg/dL) (75-99) mg/dL Calcium (8.4-10.2) mg/dL Magnesium (1.6-2.3) mg/dL Alkaline Phosphatase (38-126) U/L Total Protein (6.3-8.2) g/dL Albumin (3.5-5.0) g/dL Arterial Blood Potassium 5.2 H (3.4-4.5) mmol/L Arterial Blood Glucose 207 H 202 H 156 H (75-99) mg/dL Crossmatch 09/08/18 09/08/18 09/08/18 Range/Units 14:25 14:25 14:25 RBC 2.87 L (4.30-5.90) m/uL Hgb 9.1 L D (13.0-17.5) gm/dL Hct 27.0 L (39.0-53.0) % Plt Count 76 L (150-450) k/uL Lymphocytes # 0.8 L (1.0-4.8) k/uL APTT 31.8 H (22.0-30.0) sec ABG pO2 (83-108) mmHg ABG HCO3 (21-25) mmol/L ABG Total CO2 (19-24) mmol/L ABG O2 Saturation (94-97) % ABG Hematocrit (34.0-46.0) % ABG Potassium (3.4-4.5) mmol/L ABG Ionized Calcium (4.5-5.3) mg/dL ABG Glucose (75-99) mg/dL ABG Lactic Acid (0.5-1.6) mmol/L Hemoglobin (13.0-17.5) gm/dL Chloride 112 H (98-107) mmol/L Glucose 112 H (74-99) mg/dL POC Glucose (mg/dL) (75-99) mg/dL Calcium 7.6 L (8.4-10.2) mg/dL Magnesium 2.7 H (1.6-2.3) mg/dL Alkaline Phosphatase 21 L (38-126) U/L Total Protein 4.3 L (6.3-8.2) g/dL Albumin 2.5 L (3.5-5.0) g/dL Arterial Blood Potassium (3.4-4.5) mmol/L Arterial Blood Glucose (75-99) mg/dL Crossmatch 09/08/18 09/08/18 09/08/18 Range/Units 14:28 15:11 15:26 RBC (4.30-5.90) m/uL Hgb (13.0-17.5) gm/dL Hct (39.0-53.0) % Plt Count (150-450) k/uL Lymphocytes # (1.0-4.8) k/uL APTT (22.0-30.0) sec ABG pO2 394 H (83-108) mmHg ABG HCO3 26 H (21-25) mmol/L ABG Total CO2 27 H (19-24) mmol/L ABG O2 Saturation 100.0 H (94-97) % ABG Hematocrit (34.0-46.0) % ABG Potassium (3.4-4.5) mmol/L ABG Ionized Calcium (4.5-5.3) mg/dL ABG Glucose (75-99) mg/dL ABG Lactic Acid (0.5-1.6) mmol/L Hemoglobin (13.0-17.5) gm/dL Chloride (98-107) mmol/L Glucose (74-99) mg/dL POC Glucose (mg/dL) 116 H 103 H (75-99) mg/dL Calcium (8.4-10.2) mg/dL Magnesium (1.6-2.3) mg/dL Alkaline Phosphatase (38-126) U/L Total Protein (6.3-8.2) g/dL Albumin (3.5-5.0) g/dL Arterial Blood Potassium (3.4-4.5) mmol/L Arterial Blood Glucose (75-99) mg/dL Crossmatch Assessment and Plan Plan: Assessment: #1 Coronary artery disease with 99% stenosis involving the ostial portion of the left anterior descending artery, status post 2 vessel bypass grafting, with DAVE to LAD, and SVG to the diagonal branch, postop day 0 #2 Routine postoperative ventilator management #3 Postop blood loss anemia, an expected outcome of bypass surgery #4 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 #5 Diabetes mellitus. #6 Osteoarthritis. #7 Sleep apnea. #8 Remote history of chronic tobacco dependence. Plan: Blood gases, postop chest x-ray were reviewed by Dr. Moore. ET tube, chest tubes, indwelling catheters are in appropriate positions. We'll decreased the FiO2 down to 50%. Continue with current vent settings, with assist control mode of 12, tidal volume of 600, FiO2 of 50% and PEEP of 5. Hedynamically patient is stable. We'll continue close hemodynamic monitoring. Will proceed with continues breathing trials and extubation once the patient is awake and following commands. IS to the bedside after extubation, deep breathing and coughing, daily chest x-rays and labs. We'll continue to follow I performed a history & physical examination of the patient and discussed their management with my nurse practitioner, Mago Thrasher. I reviewed the nurse practitioner's note and agree with the documented findings and plan of care. Lung sounds are positive for clear breath sounds. The findings and the impression was discussed with the patient. I attest to the documentation by the nurse practitioner. Time with Patient: Greater than 30
[2018-09-08] MEDS ORDERED: DESMOPRESSIN ACETATE 22 MCG in SODIUM CHLORIDE 0.9% 50 ML IVPB ONE (15:58)
[2018-09-08] MEDS ORDERED: hydrALAZINE HCL 20 MG/ML 1 ML VIAL ONE (16:08)
[2018-09-08] MEDS ORDERED: fentaNYL (PF) 50 MCG/ML 2 ML AMP IVP PRN (16:09)
[2018-09-08] MEDS: METOPROLOL SUCCINATE (ER) 25 MG TAB.ER.24H PO SCH (16:32)
[2018-09-08] MEDS: LACTATED RINGERS 1,000 ML IV SCH (16:34)
--- NOTE | 2018-09-08 16:48 | OP ---
OPERATIVE REPORT DATE OF SURGERY: 09/08/2018 PREOPERATIVE DIAGNOSIS: Coronary artery disease. POSTOPERATIVE DIAGNOSIS: Coronary artery disease. PROCEDURE: 1. Coronary bypass grafting x2 vessels (left internal mammary artery to left anterior descending artery, saphenous vein graft to diagonal artery). 2. Endoscopic vein harvest, left greater saphenous vein. 3. Epiaortic ultrasound. 4. Transesophageal echocardiogram. SURGEON: Bernardo Francisco MD. ASSISTANTS: 1. Peterson Staples NP. 2. NIHARIKA Black. ANESTHESIA: General. SPECIMENS: None. COMPLICATIONS: None. INDICATION: The patient is a 77-year-old male with a history of multiple medical problems, including diabetes mellitus, sleep apnea, tobacco use and DVT, currently on Xarelto, who reports left-sided chest pain. Cardiac catheterization revealed a tight ostial LAD lesion. Coronary artery bypass was recommended. The risks, benefits and alternatives of this procedure were discussed with the patient. All of his questions were answered. Consent was obtained. FINDINGS: The left internal mammary artery was a good conduit with brisk flow. The saphenous vein was a good conduit. The LAD measured 1.5 mm. The diagonal artery measured 1.5 mm. PROCEDURE IN DETAIL: The patient was taken to the operating room and placed supine on the operating table. After the induction of general anesthesia, he was prepped and draped in the usual sterile fashion. Preoperative transesophageal echocardiogram revealed a preserved left ventricular ejection fraction with trace to mild mitral regurgitation. A median sternotomy was performed. The left internal mammary artery was harvested in the standard fashion, taking care to clip all branches. Intravenous heparin was administered and the vessel was transected distally revealing brisk flow. Simultaneously, greater saphenous vein was harvested from the left thigh using endoscopic technique. All branches were tied. Both the mammary artery and the saphenous vein were good conduits. A pericardial cradle was created. Of note, there were a fair amount of adhesions noted within the pericardial sac, especially covering the aorta. These adhesions were taken down sharply using scissors. The ascending aorta was then palpated. There was no significant calcific plaque noted. Epiaortic ultrasound was then performed on the ascending aorta. Again no calcific plaque or atheromatous disease was identified. An arterial cannula was then placed in the distal ascending aorta. A venous cannula was placed through the right atrial appendage and directed into the IVC. An antegrade catheter was placed as well. The patient was then placed on cardiopulmonary bypass with good decompression of the heart. The aortic cross-clamp was applied. Cardioplegia was delivered to achieve arrest of the heart. Of note, cardioplegia was delivered every 15- 20 minutes while the patient remained under cross-clamp. I began by dissecting out the diagonal artery. It was a soft vessel and a good target. A small arteriotomy was created. This vessel accepted a 1.5 mm probe. Using saphenous vein in reverse fashion, an end-to-side anastomosis was created. This was performed using running 7-0 Prolene suture. The graft was hemostatic and had great flow. Next, the left anterior descending artery was identified. It was dissected free. It too was a soft vessel and a good target. An arteriotomy was created. This vessel accepted a 1.5 mm probe. Using the left internal mammary artery, an end-to-side anastomosis was created. This was performed using running 8-0 Prolene suture. The graft was hemostatic. The mammary pedicle was then tacked down to the anterior surface of the heart. Warm blood was delivered in an antegrade fashion. The aortic cross- clamp was removed. The vein graft was de-aired in the standard fashion. Distal anastomoses were inspected and appeared to be hemostatic. Temporary atrial and ventricular pacing wires were placed and brought through the skin. The patient was then weaned off cardiopulmonary bypass. He easily and without any pressor support. Follow- up transesophageal echocardiogram confirmed good left ventricular ejection fraction with no change and trace mitral regurgitation. Protamine was administered. There were no adverse reactions. The remaining cannulas were then removed. The mediastinum was copiously irrigated with warm saline solution. All surgical sites were inspected and appeared to be hemostatic. Reinforcement sutures were placed as needed. Soft tissues were then reapproximated over the ascending aorta as well as over the apex of the heart. Straight 32-Syriac chest tubes were placed directly into the left pleural space as well as into the mediastinum. These were all secured to the skin using sutures. The sternum was then reapproximated using stainless steel wires in a figure-of- eight fashion. At the completion of the closure, the sternum was well aligned. The remainder of the wound was then closed in layers. A sterile dressing was applied. The patient appeared to tolerate the procedure well. There were no immediate complications. He returned to the ICU in critical but stable condition. MMODL / IJN: [id number] / [id number]
[2018-09-08] MEDS: ACETAMINOPHEN IV (For NPO) 1,000 MG in EMPTY BAG 1 BAG IVPB SCH ×2 (17:16→22:58)
[2018-09-08] MEDS: ceFAZolin IN SWFI 2 GM/20 ML SYRINGE IVP SCH (17:16)
[2018-09-08] MEDS: INSULIN REGULAR 100 UNIT in SODIUM CHLORIDE 0.9% 100 ML IV SCH (17:32)
[2018-09-08 17:47] LABS: Glucose,Whole Blood 184 mg/dL (75-99)
[2018-09-08 18:01] LABS: Basophils % (A) 0 %; Eosinophils # (A) 0.1 k/uL (0-0.7); Eosinophils % (A) 1 %; HCT 29.5 % (39.0-53.0); HGB 10.1 gm/dL (13.0-17.5); Lymphocytes # (A) 2.1 k/uL (1.0-4.8); Lymphocytes % (A) 16 %; MCHC 34.2 g/dL (31.0-37.0); MCV 93.6 fL (80.0-100.0); Mean Platelet Volume 7.3; Monocytes # (A) 0.7 k/uL (0-1.0); Monocytes % (A) 5 %; Neutrophils % (A) 77 %; RBC 3.16 m/uL (4.30-5.90); RDW 14.4 % (11.5-15.5)
[2018-09-08 18:07] LABS: Platelet Count 154 k/uL (150-450)
[2018-09-08 18:12] LABS: Partial Thromboplastin Time 36.2 sec (22.0-30.0); Prothrombin Time 10.7 sec (9.0-12.0)
[2018-09-08 18:32] LABS: Glucose,Whole Blood 180 mg/dL (75-99)
[2018-09-08 19:17] LABS: Glucose,Whole Blood 164 mg/dL (75-99)
[2018-09-08 20:10] LABS: Glucose,Whole Blood 158 mg/dL (75-99)
[2018-09-08 20:41] LABS: Basophils % (A) 0 %; Eosinophils % (A) 0 %; HGB 10.8 gm/dL (13.0-17.5); Lymphocytes # (A) 0.8 k/uL (1.0-4.8); Lymphocytes % (A) 7 %; MCH 32.4 pg (25.0-35.0); MCHC 34.8 g/dL (31.0-37.0); MCV 93.2 fL (80.0-100.0); Mean Platelet Volume 7.3; Monocytes # (A) 0.6 k/uL (0-1.0); Monocytes % (A) 5 %; Neutrophils # (A) 10.5 k/uL (1.3-7.7); Neutrophils % (A) 87 %; Platelet Count 155 k/uL (150-450); RBC 3.32 m/uL (4.30-5.90); RDW 14.1 % (11.5-15.5); WBC 12.1 k/uL (3.8-10.6)
[2018-09-08 20:51] LABS: Anion Gap 3 mmol/L; Blood Urea Nitrogen 11 mg/dL (9-20); Carbon Dioxide 25 mmol/L (22-30); Chloride 111 mmol/L (98-107); Glucose 147 mg/dL (74-99); Potassium 3.8 mmol/L (3.5-5.1); Sodium 139 mmol/L (137-145)
[2018-09-08 21:09] LABS: Glucose,Whole Blood 144 mg/dL (75-99)
[2018-09-08 22:00] LABS: Glucose,Whole Blood 154 mg/dL (75-99)
[2018-09-08 22:56] LABS: Glucose,Whole Blood 155 mg/dL (75-99)
[2018-09-08] MEDS: HEPARIN SODIUM,PORCINE 5,000 UNIT/ML 1 ML VIAL SQ SCH (22:58)
[2018-09-08 23:01] LABS: ABG Base Excess -0.9 mmol/L; ABG HCO3 24 mmol/L (21-25); ABG PCO2 38 mmHg (35-45); ABG PH 7.41 (7.35-7.45); ABG PO2 149 mmHg (83-108); ABG TCO2 25 mmol/L (19-24)
[2018-09-08 23:56] LABS: Glucose,Whole Blood 143 mg/dL (75-99)
[2018-09-09 01:09] LABS: Glucose,Whole Blood 135 mg/dL (75-99)
[2018-09-09] MEDS: ceFAZolin IN SWFI 2 GM/20 ML SYRINGE IVP SCH ×2 (01:10→11:41)
[2018-09-09] MEDS: CLEVIDIPINE BUTYRATE 25 MG in EMPTY BAG 1 BAG IV SCH ×3 (01:30→04:57)
[2018-09-09 02:01] LABS: Glucose,Whole Blood 129 mg/dL (75-99)
[2018-09-09 03:03] LABS: Glucose,Whole Blood 123 mg/dL (75-99)
[2018-09-09 04:01] LABS: Glucose,Whole Blood 115 mg/dL (75-99)
[2018-09-09 04:14] LABS: Basophils % (A) 0 %; Eosinophils % (A) 0 %; HCT 31.5 % (39.0-53.0); Lymphocytes # (A) 0.7 k/uL (1.0-4.8); Lymphocytes % (A) 6 %; MCH 32.6 pg (25.0-35.0); MCHC 34.9 g/dL (31.0-37.0); MCV 93.3 fL (80.0-100.0); Mean Platelet Volume 7.3; Monocytes # (A) 0.6 k/uL (0-1.0); Monocytes % (A) 5 %; Neutrophils # (A) 9.9 k/uL (1.3-7.7); Neutrophils % (A) 87 %; Platelet Count 150 k/uL (150-450); RBC 3.37 m/uL (4.30-5.90); RDW 14.3 % (11.5-15.5); WBC 11.4 k/uL (3.8-10.6)
[2018-09-09 04:22] LABS: INR 0.9 (<1.2); Ionized Calcium 4.8 mg/dL (4.5-5.3); Partial Thromboplastin Time 24.6 sec (22.0-30.0)
[2018-09-09 04:31] LABS: ALT 43 U/L (21-72); AST 38 U/L (17-59); Albumin 2.9 g/dL (3.5-5.0); Alkaline Phosphatase 31 U/L (38-126); Anion Gap 5 mmol/L; Blood Urea Nitrogen 12 mg/dL (9-20); Calcium 7.9 mg/dL (8.4-10.2); Carbon Dioxide 24 mmol/L (22-30); Chloride 111 mmol/L (98-107); Glucose 117 mg/dL (74-99); Magnesium 2.2 mg/dL (1.6-2.3); Sodium 140 mmol/L (137-145); Total Bilirubin 0.3 mg/dL (0.2-1.3)
[2018-09-09 04:54] LABS: Glucose,Whole Blood 105 mg/dL (75-99)
[2018-09-09] MEDS: ACETAMINOPHEN IV (For NPO) 1,000 MG in EMPTY BAG 1 BAG IVPB SCH ×3 (04:57→18:07)
[2018-09-09] MEDS: ALBUMIN HUMAN 5% 250 ML in EMPTY BAG 1 BAG IVPB PRN (05:51)
[2018-09-09 06:09] LABS: Glucose,Whole Blood 169 mg/dL (75-99)
[2018-09-09] MEDS: KETOROLAC 30 MG/ML 1 ML VIAL IVP SCH ×3 (06:47→20:44)
[2018-09-09 06:54] LABS: Glucose,Whole Blood 167 mg/dL (75-99)
[2018-09-09] MEDS: ATORVASTATIN 80 MG TAB PO SCH (08:03)
[2018-09-09] MEDS: HEPARIN SODIUM,PORCINE 5,000 UNIT/ML 1 ML VIAL SQ SCH ×2 (08:03→16:29)
[2018-09-09] MEDS: ASPIRIN 325 MG TAB PO SCH (08:03)
[2018-09-09] MEDS: CLOPIDOGREL 75 MG TAB PO SCH (08:03)
[2018-09-09] MEDS: METOPROLOL TARTRATE 25 MG TAB PO SCH ×2 (08:03→20:47)
--- NOTE | 2018-09-09 08:16 | P.PN ---
Subjective Progress Note Date: 09/09/18 Principal diagnosis: Coronary artery disease with ostial LAD stenosis 99%. Previous medical history of diabetes with the preoperative FEV1 6.5%, skin cancer with removal, DVT left lower extremity in 2012 and right lower extremity in 2013 on chronic Xarelto for anticoagulation, recent left rotator cuff repair, previous tobacco dependence, mild COPD with preoperative FEV1 67% of predicted, obstructive sleep apnea without home CPAP, peripheral vascular disease, and family history of early coronary artery disease with father diagnosed at 52 years old. POD #1 coronary bypass grafting 2 vessels, left internal mammary artery to the left anterior descending artery, reverse saphenous vein graft to the diagonal artery. Endoscopic vein harvest, left greater saphenous vein from the thigh. Epi-aortic ultrasound. Intraoperative transesophageal echocardiogram. Postoperative acute blood loss anemia, an expected outcome given cardiopulmonary bypass and hemodilution. The patient is currently sitting up in a recliner in no acute distress. He was successfully extubated last night at 23:12, currently on 2 L nasal cannula. He does complain of incisional and chest tube pain, denies shortness of breath. He is hemodynamically stable on no inotropes or pressors. He was a bit hypertensive last night, was on high-dose Cleviprex, currently on 2 mg/h. Platelet count was 76,000 last night and he was a bit oozy from his mediastinal chest tubes, he was given 1 unit of platelets, this morning his platelet count is 150,000 and his chest tube drainage has decreased. Urine output has been adequate and he is pulling 750 mL on his incentive spirometry. No further complaints. Objective - Vital Signs Vital signs: Vital Signs Temp 100.4 F H 09/09/18 04:00 Pulse 98 09/09/18 07:00 Resp 23 09/09/18 07:00 BP 130/51 09/09/18 06:30 Pulse Ox 99 09/09/18 07:00 Intake & Output 09/08/18 09/09/18 09/09/18 18:59 06:59 18:59 Intake Total 899.473 2607.449 4.995 Output Total 3621 1385 Balance -2758.358 -164.551 4.995 Weight 82.6 kg Intake: IV 373 837.0 .9 60 CO/CI 120 Lactated Ringers 1,000 ml 250 600 @ 20 mls/hr IV .Q24H [facility] Rx#:[id number] Nitroglycerin-D5w Pmx 50 18.0 mg In Dextrose/Water 1 250ml.bag @ 5 MCG/MIN 1.5 mls/hr IV .Q24H [facility] Rx#: [id number] Pressure bag .9 99 Intake, IV Titration 278.642 383.449 4.995 Amount ACETAMINOPHEN IV (For NPO 100 ) 1,000 mg In Empty Bag 1 bag @ 400 mls/hr IVPB Q6HR [facility] Rx#:[id number] Clevidipine Butyrate 25 302.666 mg In Empty Bag 1 bag @ 1 MG/HR 2 mls/hr IV .Q24H [facility] Rx#:[id number] Desmopressin Acetate 22 50 mcg In Sodium Chloride 0. 9% 50 ml @ 200 mls/hr IVPB [facility] Rx#: [id number] Heparin Sod,Pork in 0.45% 110.633 NaCl 25,000 unit In 0.45 % NaCl 1 250ml.bag @ 12 UNITS/KG/HR 8.94 mls/hr IV .Q24H [facility] Rx#: [id number] Insulin Regular 100 unit 2.676 53.310 4.995 In Sodium Chloride 0.9% 100 ml @ Per Protocol IV .Q0M [facility] Rx#:[id number] Propofol 1,000 mg In 15.333 27.473 Empty Bag 1 bag @ Titrate IV .Q0M [facility] Rx#: [id number] Blood Product 211 Platelet Irr Pheresis 211 Acda1 Unit [id number] Output: Chest Tube Drainage 471 610 Bilateral Mediastinal 375 460 Left Lateral Chest 96 150 Urine 2150 775 Estimated Blood Loss 1000 Other: Voiding Method Indwelling Catheter Indwelling Catheter ABP, PAP, CO, CI - Last Documented Arterial Blood Pressure 159/38 Pulmonary Artery Pressure 21/8 Cardiac Output 6.6 Cardiac Index 3.7 - Constitutional General appearance: Present: cooperative, no acute distress - Respiratory Details: Lungs sounds diminished bilaterally. Respirations even, nonlabored. Currently on 2 L nasal cannula with oxygen saturation 99%. Able to achieve 750 mL on his incentive spirometry. Very weak nonproductive cough. Mediastinal chest tube to continuous wall suction, 320 mL serosanguineous drainage overnight, 850 mL since surgery. Left pleural chest tube to continuous wall suction, 110 mL serosanguineous drainage overnight, 280 mL since surgery. No air leaks present. - Cardiovascular Details: S1, S2 present. Regular rate and rhythm, sinus rhythm on telemetry. A/V epicardial pacemaker wires present, connected to generator, was on VVI mode with backup rate 50 bpm, generator turned off. Sternum stable. Palpable peripheral pulses bilaterally. No edema present. No calf pain or tenderness noted. Right internal jugular Likely/Cordis, right radial arterial line present. Last CO/CI 6.4/3.7 on no inotropes or pressors. Heart hugger in place with patient intermittently demonstrating appropriate use. Antiembolism stockings, SCDs present. - Gastrointestinal Gastrointestinal Comment(s): Abdomen soft, nontender, nondistended. Hypoactive bowel sounds present 4 quadrants. Tolerating sips of water. No flatus. - Genitourinary Genitourinary Comment(s): Burton present draining clear, yellow urine. Output 50-60 mL/h overnight. - Integumentary Integumentary Comment(s): Skin is warm and dry with evidence of good perfusion. Anterior chest incision well approximated and covered with dry intact dressing. Left lower extremity EVH site well approximated. - Neurologic Neurologic: Present: CNII-XII intact - Musculoskeletal Musculoskeletal: Present: strength equal bilaterally - Psychiatric Psychiatric: Present: A&O x's 3, appropriate affect, intact judgment & insight - Allied health notes Allied health notes reviewed: nursing - Labs CBC & Chem 7: 09/09/18 04:00 09/09/18 04:00 Labs: Abnormal Lab Results - Last 24 Hours (Table) 09/07/18 09/08/18 09/08/18 Range/Units 06:15 09:51 10:48 WBC (3.8-10.6) k/uL RBC (4.30-5.90) m/uL Hgb (13.0-17.5) gm/dL Hct (39.0-53.0) % Plt Count (150-450) k/uL Neutrophils # (1.3-7.7) k/uL Lymphocytes # (1.0-4.8) k/uL APTT (22.0-30.0) sec ABG pO2 383 H 305 H (83-108) mmHg ABG HCO3 (21-25) mmol/L ABG Total CO2 26 H 27 H (19-24) mmol/L ABG O2 Saturation 100.0 H 100.0 H (94-97) % ABG Hematocrit (34.0-46.0) % ABG Potassium (3.4-4.5) mmol/L ABG Ionized Calcium 4.4 L 4.4 L (4.5-5.3) mg/dL ABG Glucose 136 H 156 H (75-99) mg/dL ABG Lactic Acid (0.5-1.6) mmol/L Hemoglobin 12.4 L 11.4 L (13.0-17.5) gm/dL Chloride (98-107) mmol/L Creatinine (0.66-1.25) mg/dL Glucose (74-99) mg/dL POC Glucose (mg/dL) (75-99) mg/dL Calcium (8.4-10.2) mg/dL Magnesium (1.6-2.3) mg/dL Alkaline Phosphatase (38-126) U/L Total Protein (6.3-8.2) g/dL Albumin (3.5-5.0) g/dL Arterial Blood Potassium (3.4-4.5) mmol/L Arterial Blood Glucose 136 H 156 H (75-99) mg/dL Crossmatch See Detail 09/08/18 09/08/18 09/08/18 Range/Units 11:39 12:11 13:14 WBC (3.8-10.6) k/uL RBC (4.30-5.90) m/uL Hgb (13.0-17.5) gm/dL Hct (39.0-53.0) % Plt Count (150-450) k/uL Neutrophils # (1.3-7.7) k/uL Lymphocytes # (1.0-4.8) k/uL APTT (22.0-30.0) sec ABG pO2 >420 H 381 H >420 H (83-108) mmHg ABG HCO3 (21-25) mmol/L ABG Total CO2 25 H 26 H 26 H (19-24) mmol/L ABG O2 Saturation 100.0 H 100.0 H 100.0 H (94-97) % ABG Hematocrit 23 L 23 L 27 L (34.0-46.0) % ABG Potassium 5.2 H (3.4-4.5) mmol/L ABG Ionized Calcium 4.0 L 4.1 L 4.3 L (4.5-5.3) mg/dL ABG Glucose 207 H 202 H 156 H (75-99) mg/dL ABG Lactic Acid 2.1 H 3.4 H* (0.5-1.6) mmol/L Hemoglobin 7.6 L 7.6 L 8.8 L (13.0-17.5) gm/dL Chloride (98-107) mmol/L Creatinine (0.66-1.25) mg/dL Glucose (74-99) mg/dL POC Glucose (mg/dL) (75-99) mg/dL Calcium (8.4-10.2) mg/dL Magnesium (1.6-2.3) mg/dL Alkaline Phosphatase (38-126) U/L Total Protein (6.3-8.2) g/dL Albumin (3.5-5.0) g/dL Arterial Blood Potassium 5.2 H (3.4-4.5) mmol/L Arterial Blood Glucose 207 H 202 H 156 H (75-99) mg/dL Crossmatch 09/08/18 09/08/18 09/08/18 Range/Units 14:25 14:25 14:25 WBC (3.8-10.6) k/uL RBC 2.87 L (4.30-5.90) m/uL Hgb 9.1 L D (13.0-17.5) gm/dL Hct 27.0 L (39.0-53.0) % Plt Count 76 L (150-450) k/uL Neutrophils # (1.3-7.7) k/uL Lymphocytes # 0.8 L (1.0-4.8) k/uL APTT 31.8 H (22.0-30.0) sec ABG pO2 (83-108) mmHg ABG HCO3 (21-25) mmol/L ABG Total CO2 (19-24) mmol/L ABG O2 Saturation (94-97) % ABG Hematocrit (34.0-46.0) % ABG Potassium (3.4-4.5) mmol/L ABG Ionized Calcium (4.5-5.3) mg/dL ABG Glucose (75-99) mg/dL ABG Lactic Acid (0.5-1.6) mmol/L Hemoglobin (13.0-17.5) gm/dL Chloride 112 H (98-107) mmol/L Creatinine (0.66-1.25) mg/dL Glucose 112 H (74-99) mg/dL POC Glucose (mg/dL) (75-99) mg/dL Calcium 7.6 L (8.4-10.2) mg/dL Magnesium 2.7 H (1.6-2.3) mg/dL Alkaline Phosphatase 21 L (38-126) U/L Total Protein 4.3 L (6.3-8.2) g/dL Albumin 2.5 L (3.5-5.0) g/dL Arterial Blood Potassium (3.4-4.5) mmol/L Arterial Blood Glucose (75-99) mg/dL Crossmatch 09/08/18 09/08/18 09/08/18 Range/Units 14:28 15:11 15:26 WBC (3.8-10.6) k/uL RBC (4.30-5.90) m/uL Hgb (13.0-17.5) gm/dL Hct (39.0-53.0) % Plt Count (150-450) k/uL Neutrophils # (1.3-7.7) k/uL Lymphocytes # (1.0-4.8) k/uL APTT (22.0-30.0) sec ABG pO2 394 H (83-108) mmHg ABG HCO3 26 H (21-25) mmol/L ABG Total CO2 27 H (19-24) mmol/L ABG O2 Saturation 100.0 H (94-97) % ABG Hematocrit (34.0-46.0) % ABG Potassium (3.4-4.5) mmol/L ABG Ionized Calcium (4.5-5.3) mg/dL ABG Glucose (75-99) mg/dL ABG Lactic Acid (0.5-1.6) mmol/L Hemoglobin (13.0-17.5) gm/dL Chloride (98-107) mmol/L Creatinine (0.66-1.25) mg/dL Glucose (74-99) mg/dL POC Glucose (mg/dL) 116 H 103 H (75-99) mg/dL Calcium (8.4-10.2) mg/dL Magnesium (1.6-2.3) mg/dL Alkaline Phosphatase (38-126) U/L Total Protein (6.3-8.2) g/dL Albumin (3.5-5.0) g/dL Arterial Blood Potassium (3.4-4.5) mmol/L Arterial Blood Glucose (75-99) mg/dL Crossmatch 09/08/18 09/08/18 09/08/18 Range/Units 17:15 17:15 17:27 WBC 13.0 H (3.8-10.6) k/uL RBC 3.16 L (4.30-5.90) m/uL Hgb 10.1 L (13.0-17.5) gm/dL Hct 29.5 L (39.0-53.0) % Plt Count (150-450) k/uL Neutrophils # 10.0 H (1.3-7.7) k/uL Lymphocytes # (1.0-4.8) k/uL APTT 36.2 H (22.0-30.0) sec ABG pO2 (83-108) mmHg ABG HCO3 (21-25) mmol/L ABG Total CO2 (19-24) mmol/L ABG O2 Saturation (94-97) % ABG Hematocrit (34.0-46.0) % ABG Potassium (3.4-4.5) mmol/L ABG Ionized Calcium (4.5-5.3) mg/dL ABG Glucose (75-99) mg/dL ABG Lactic Acid (0.5-1.6) mmol/L Hemoglobin (13.0-17.5) gm/dL Chloride (98-107) mmol/L Creatinine (0.66-1.25) mg/dL Glucose (74-99) mg/dL POC Glucose (mg/dL) 184 H (75-99) mg/dL Calcium (8.4-10.2) mg/dL Magnesium (1.6-2.3) mg/dL Alkaline Phosphatase (38-126) U/L Total Protein (6.3-8.2) g/dL Albumin (3.5-5.0) g/dL Arterial Blood Potassium (3.4-4.5) mmol/L Arterial Blood Glucose (75-99) mg/dL Crossmatch 09/08/18 09/08/18 09/08/18 Range/Units 18:16 19:15 20:09 WBC (3.8-10.6) k/uL RBC (4.30-5.90) m/uL Hgb (13.0-17.5) gm/dL Hct (39.0-53.0) % Plt Count (150-450) k/uL Neutrophils # (1.3-7.7) k/uL Lymphocytes # (1.0-4.8) k/uL APTT (22.0-30.0) sec ABG pO2 (83-108) mmHg ABG HCO3 (21-25) mmol/L ABG Total CO2 (19-24) mmol/L ABG O2 Saturation (94-97) % ABG Hematocrit (34.0-46.0) % ABG Potassium (3.4-4.5) mmol/L ABG Ionized Calcium (4.5-5.3) mg/dL ABG Glucose (75-99) mg/dL ABG Lactic Acid (0.5-1.6) mmol/L Hemoglobin (13.0-17.5) gm/dL Chloride (98-107) mmol/L Creatinine (0.66-1.25) mg/dL Glucose (74-99) mg/dL POC Glucose (mg/dL) 180 H 164 H 158 H (75-99) mg/dL Calcium (8.4-10.2) mg/dL Magnesium (1.6-2.3) mg/dL Alkaline Phosphatase (38-126) U/L Total Protein (6.3-8.2) g/dL Albumin (3.5-5.0) g/dL Arterial Blood Potassium (3.4-4.5) mmol/L Arterial Blood Glucose (75-99) mg/dL Crossmatch 09/08/18 09/08/18 09/08/18 Range/Units 20:29 20:29 21:08 WBC 12.1 H (3.8-10.6) k/uL RBC 3.32 L (4.30-5.90) m/uL Hgb 10.8 L (13.0-17.5) gm/dL Hct 31.0 L (39.0-53.0) % Plt Count (150-450) k/uL Neutrophils # 10.5 H (1.3-7.7) k/uL Lymphocytes # 0.8 L (1.0-4.8) k/uL APTT (22.0-30.0) sec ABG pO2 (83-108) mmHg ABG HCO3 (21-25) mmol/L ABG Total CO2 (19-24) mmol/L ABG O2 Saturation (94-97) % ABG Hematocrit (34.0-46.0) % ABG Potassium (3.4-4.5) mmol/L ABG Ionized Calcium (4.5-5.3) mg/dL ABG Glucose (75-99) mg/dL ABG Lactic Acid (0.5-1.6) mmol/L Hemoglobin (13.0-17.5) gm/dL Chloride 111 H (98-107) mmol/L Creatinine 0.64 L (0.66-1.25) mg/dL Glucose 147 H (74-99) mg/dL POC Glucose (mg/dL) 144 H (75-99) mg/dL Calcium 8.0 L (8.4-10.2) mg/dL Magnesium (1.6-2.3) mg/dL Alkaline Phosphatase (38-126) U/L Total Protein (6.3-8.2) g/dL Albumin (3.5-5.0) g/dL Arterial Blood Potassium (3.4-4.5) mmol/L Arterial Blood Glucose (75-99) mg/dL Crossmatch 09/08/18 09/08/18 09/08/18 Range/Units 21:58 22:54 22:57 WBC (3.8-10.6) k/uL RBC (4.30-5.90) m/uL Hgb (13.0-17.5) gm/dL Hct (39.0-53.0) % Plt Count (150-450) k/uL Neutrophils # (1.3-7.7) k/uL Lymphocytes # (1.0-4.8) k/uL APTT (22.0-30.0) sec ABG pO2 149 H (83-108) mmHg ABG HCO3 (21-25) mmol/L ABG Total CO2 25 H (19-24) mmol/L ABG O2 Saturation 100.0 H (94-97) % ABG Hematocrit (34.0-46.0) % ABG Potassium (3.4-4.5) mmol/L ABG Ionized Calcium (4.5-5.3) mg/dL ABG Glucose (75-99) mg/dL ABG Lactic Acid (0.5-1.6) mmol/L Hemoglobin (13.0-17.5) gm/dL Chloride (98-107) mmol/L Creatinine (0.66-1.25) mg/dL Glucose (74-99) mg/dL POC Glucose (mg/dL) 154 H 155 H (75-99) mg/dL Calcium (8.4-10.2) mg/dL Magnesium (1.6-2.3) mg/dL Alkaline Phosphatase (38-126) U/L Total Protein (6.3-8.2) g/dL Albumin (3.5-5.0) g/dL Arterial Blood Potassium (3.4-4.5) mmol/L Arterial Blood Glucose (75-99) mg/dL Crossmatch 09/08/18 09/09/18 09/09/18 Range/Units 23:55 01:07 01:59 WBC (3.8-10.6) k/uL RBC (4.30-5.90) m/uL Hgb (13.0-17.5) gm/dL Hct (39.0-53.0) % Plt Count (150-450) k/uL Neutrophils # (1.3-7.7) k/uL Lymphocytes # (1.0-4.8) k/uL APTT (22.0-30.0) sec ABG pO2 (83-108) mmHg ABG HCO3 (21-25) mmol/L ABG Total CO2 (19-24) mmol/L ABG O2 Saturation (94-97) % ABG Hematocrit (34.0-46.0) % ABG Potassium (3.4-4.5) mmol/L ABG Ionized Calcium (4.5-5.3) mg/dL ABG Glucose (75-99) mg/dL ABG Lactic Acid (0.5-1.6) mmol/L Hemoglobin (13.0-17.5) gm/dL Chloride (98-107) mmol/L Creatinine (0.66-1.25) mg/dL Glucose (74-99) mg/dL POC Glucose (mg/dL) 143 H 135 H 129 H (75-99) mg/dL Calcium (8.4-10.2) mg/dL Magnesium (1.6-2.3) mg/dL Alkaline Phosphatase (38-126) U/L Total Protein (6.3-8.2) g/dL Albumin (3.5-5.0) g/dL Arterial Blood Potassium (3.4-4.5) mmol/L Arterial Blood Glucose (75-99) mg/dL Crossmatch 09/09/18 09/09/18 09/09/18 Range/Units 03:01 03:59 04:00 WBC 11.4 H (3.8-10.6) k/uL RBC 3.37 L (4.30-5.90) m/uL Hgb 11.0 L (13.0-17.5) gm/dL Hct 31.5 L (39.0-53.0) % Plt Count (150-450) k/uL Neutrophils # 9.9 H (1.3-7.7) k/uL Lymphocytes # 0.7 L (1.0-4.8) k/uL APTT (22.0-30.0) sec ABG pO2 (83-108) mmHg ABG HCO3 (21-25) mmol/L ABG Total CO2 (19-24) mmol/L ABG O2 Saturation (94-97) % ABG Hematocrit (34.0-46.0) % ABG Potassium (3.4-4.5) mmol/L ABG Ionized Calcium (4.5-5.3) mg/dL ABG Glucose (75-99) mg/dL ABG Lactic Acid (0.5-1.6) mmol/L Hemoglobin (13.0-17.5) gm/dL Chloride (98-107) mmol/L Creatinine (0.66-1.25) mg/dL Glucose (74-99) mg/dL POC Glucose (mg/dL) 123 H 115 H (75-99) mg/dL Calcium (8.4-10.2) mg/dL Magnesium (1.6-2.3) mg/dL Alkaline Phosphatase (38-126) U/L Total Protein (6.3-8.2) g/dL Albumin (3.5-5.0) g/dL Arterial Blood Potassium (3.4-4.5) mmol/L Arterial Blood Glucose (75-99) mg/dL Crossmatch 09/09/18 09/09/18 09/09/18 Range/Units 04:00 04:53 06:08 WBC (3.8-10.6) k/uL RBC (4.30-5.90) m/uL Hgb (13.0-17.5) gm/dL Hct (39.0-53.0) % Plt Count (150-450) k/uL Neutrophils # (1.3-7.7) k/uL Lymphocytes # (1.0-4.8) k/uL APTT (22.0-30.0) sec ABG pO2 (83-108) mmHg ABG HCO3 (21-25) mmol/L ABG Total CO2 (19-24) mmol/L ABG O2 Saturation (94-97) % ABG Hematocrit (34.0-46.0) % ABG Potassium (3.4-4.5) mmol/L ABG Ionized Calcium (4.5-5.3) mg/dL ABG Glucose (75-99) mg/dL ABG Lactic Acid (0.5-1.6) mmol/L Hemoglobin (13.0-17.5) gm/dL Chloride 111 H (98-107) mmol/L Creatinine (0.66-1.25) mg/dL Glucose 117 H (74-99) mg/dL POC Glucose (mg/dL) 105 H 169 H (75-99) mg/dL Calcium 7.9 L (8.4-10.2) mg/dL Magnesium (1.6-2.3) mg/dL Alkaline Phosphatase 31 L (38-126) U/L Total Protein 5.0 L (6.3-8.2) g/dL Albumin 2.9 L (3.5-5.0) g/dL Arterial Blood Potassium (3.4-4.5) mmol/L Arterial Blood Glucose (75-99) mg/dL Crossmatch 09/09/18 Range/Units 06:53 WBC (3.8-10.6) k/uL RBC (4.30-5.90) m/uL Hgb (13.0-17.5) gm/dL Hct (39.0-53.0) % Plt Count (150-450) k/uL Neutrophils # (1.3-7.7) k/uL Lymphocytes # (1.0-4.8) k/uL APTT (22.0-30.0) sec ABG pO2 (83-108) mmHg ABG HCO3 (21-25) mmol/L ABG Total CO2 (19-24) mmol/L ABG O2 Saturation (94-97) % ABG Hematocrit (34.0-46.0) % ABG Potassium (3.4-4.5) mmol/L ABG Ionized Calcium (4.5-5.3) mg/dL ABG Glucose (75-99) mg/dL ABG Lactic Acid (0.5-1.6) mmol/L Hemoglobin (13.0-17.5) gm/dL Chloride (98-107) mmol/L Creatinine (0.66-1.25) mg/dL Glucose (74-99) mg/dL POC Glucose (mg/dL) 167 H (75-99) mg/dL Calcium (8.4-10.2) mg/dL Magnesium (1.6-2.3) mg/dL Alkaline Phosphatase (38-126) U/L Total Protein (6.3-8.2) g/dL Albumin (3.5-5.0) g/dL Arterial Blood Potassium (3.4-4.5) mmol/L Arterial Blood Glucose (75-99) mg/dL Crossmatch - Imaging and Cardiology Chest x-ray: report reviewed, image reviewed Assessment and Plan (1) Coronary artery disease Current Visit: Yes Status: Chronic Code(s): I25.10 - ATHSCL HEART DISEASE OF [place] CORONARY ARTERY W/O ANG PCTRS SNOMED Code(s): 90400062 (2) Diabetes mellitus Current Visit: Yes Status: Chronic Code(s): E11.9 - TYPE 2 DIABETES MELLITUS WITHOUT COMPLICATIONS SNOMED Code(s): 95976503 (3) History of skin cancer Current Visit: No Status: Resolved Code(s): Z85.828 - PERSONAL HISTORY OF OTHER MALIGNANT NEOPLASM OF SKIN SNOMED Code(s): 691972299 (4) DVT (deep venous thrombosis) Current Visit: No Status: Resolved Code(s): I82.409 - ACUTE EMBOLISM AND THOMBOS UNSP DEEP VN UNSP LOWER EXTREMITY SNOMED Code(s): 561747992 (5) Chronic anticoagulation Current Visit: Yes Status: Chronic Code(s): Z79.01 - [employer] (CURRENT) USE OF ANTICOAGULANTS SNOMED Code(s): 981149502 (6) Family history of premature CAD Current Visit: Yes Status: Chronic Code(s): Z82.49 - FAMILY HX OF [place] HEART DIS AND OTH DIS OF THE CIRC SYS SNOMED Code(s): 065148439 (7) Tobacco dependence in remission Current Visit: No Status: Resolved Code(s): F17.201 - NICOTINE DEPENDENCE, UNSPECIFIED, IN REMISSION SNOMED Code(s): 228714736 (8) Unstable angina pectoris Current Visit: Yes Status: Acute Code(s): I20.0 - UNSTABLE ANGINA SNOMED Code(s): 3322208 Plan: 1. Continue aspirin, statin, Plavix, beta marline. Will increase beta marline therapy as tolerated. 2. Wean Cleviprex as tolerated. Discontinue IV nitro. 3. Will add Xarelto back to medication regimen prior to discharge after all lines and tubes have been discontinued. 4. Wean O2 as tolerated. Encourage incentive spirometry 10 times every hour while awake. 5. Increase activity, ambulate as tolerated. PT/OT/cardiac rehab following. 6. Will monitor daily labs and x-rays. Electrolyte replacement per protocol. No transfusion. 7. Pain control with current medication regimen. Will add Toradol. 8. Insulin management per primary care service. 9. GI prophylaxis with Protonix, DVT prophylaxis with subcu heparin and SCDs. 10. Encourage continued smoking cessation. 11. More recommendations to follow. Time with Patient: Greater than 30
--- NOTE | 2018-09-09 08:18 | XR ---
EXAMINATION TYPE: XR chest 1V portable DATE OF EXAM: 09/09/2018 COMPARISON: September 08, 2018 HISTORY: SOB, Follow Up FINDINGS: Indwelling tubes and catheters are unchanged. No change in bibasilar opacities. Stable appearance of the cardio-mediastinal structures at this time. Pleural effusion unchanged. IMPRESSION: 1. Stable portable chest. Clinical correlation and follow up until resolution is recommended.
[2018-09-09 08:31] LABS: Glucose,Whole Blood 73 mg/dL (75-99)
[2018-09-09] MEDS ORDERED: METOPROLOL TARTRATE 12.5 MG TAB PO SCH (09:00)
[2018-09-09] MEDS ORDERED: CLOPIDOGREL 75 MG TAB PO SCH (09:00)
[2018-09-09] MEDS ORDERED: ATORVASTATIN 40 MG TAB PO SCH (09:00)
[2018-09-09] MEDS ORDERED: PANTOPRAZOLE 40 MG/10 ML VIAL IVP SCH (09:00)
[2018-09-09] MEDS ORDERED: ASPIRIN 325 MG TAB PO SCH (09:00)
[2018-09-09] MEDS: IPRATROPIUM-ALBUTEROL 3 ML NEB INHALATION SCH ×4 (09:43→19:17)
[2018-09-09 10:13] LABS: Glucose,Whole Blood 170 mg/dL (75-99)
[2018-09-09 11:05] LABS: Glucose,Whole Blood 148 mg/dL (75-99)
[2018-09-09] MEDS: LACTATED RINGERS 1,000 ML IV SCH (11:05)
--- NOTE | 2018-09-09 11:51 | P.PN ---
Subjective Progress Note Date: 09/09/18 Principal diagnosis: This is a very pleasant 77-year-old gentleman who follows with Dr. Molina as his primary care physician. 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 He had recently been having episodes of chest discomfort with exertion. Even walking out to his mailbox and back he would have to stop and rest until the pain subsided. He was seen and evaluated by Dr. Hood who directed him here to the emergency room on 09/02/2018. He had subsequently undergone cardiac catheterization and was found to have a 99% stenosis of the ostial portion of the left anterior descending artery. He does have a normal left ventricular systolic function. He was not a stent candidate and has been seen and evaluated by cardiothoracic surgery who are planning to do coronary artery bypass grafting on 09/08/2018. We are consulted for the same. The patient does have a 30 year pack per day smoking history however quit 30 years ago. He denies any history of COPD, emphysema or asthma. He is not utilizing any inhalers or oxygen in the outpatient setting. He has not been seen by a head pumper in the past. He is seen today in consultation on the selective care unit. He is currently awake and alert in no acute distress. He denies any chest discomfort currently. No shortness of breath, cough or congestion. No dizziness or lightheadedness. He does have preserved left ventricular systolic function with ejection fraction 55-60%. No valvular heart disease. White count 6.8. [id number]. Creatinine 0.73. FEV1 value greater than 2 L. Chest x-ray showed no acute cardiopulmonary process. Carotid Dopplers without significant stenosis. On 09/08/2018 patient seen in follow-up in the intensive care units status post coronary bypass grafting, with DAVE to LAD, and SVG to the diagonal branch. Patient sedated, intubated, on mechanical ventilator, current settings are assist-control mode with a rate of 12, tidal volume of 600, FiO2 of 50% and PEEP of 5. Postoperative blood gases showed pO2 of 394, pCO2 41, and pH of 7.41 , FiO2 was dropped down to 50%. CBC showed white blood count of 7.9, hemoglobin of 9.1, sodium of 141, potassium is 4.3, chloride is 112, BUN of 11, creatinine of 0.66. Lung sounds are clear to auscultation, midline incision is clean dry and intact, approximated, covered with surgical dressing, AV wires to an external pacemaker with a backup rate, patient is sinus rhythm with a rate of 71 BPM, blood pressures 119/60, PA pressures of 22/13, cardiac output is 12.9 , and cardiac index of 7.5. 2 mediastinal chest tubes with a proximal 110 cigarettes output in the Pleur-evac, and there is occasional mild air leak noted , left pleural chest tube with of 40 mL of sanguinous output. IV fluids include lactated Ringer's at a rate of 50, nitroglycerin at 5 mics per minute, Diprivan, Cleviprex at 2 mg/h, insulin to be started for blood sugar over 110. Patient is nonoliguric. Postop chest x-ray was reviewed by Dr. Moore, showed mediastinal drains, epicardial pacing leads, left-sided thoracostomy tube endotracheal tube NG tube [place] catheter in appropriate positions, no pneumothorax, or pulmonary vascular congestion. Left mid lung subsegmental atelectasis noted. On 09/09/2018, patient is postoperative day #1, status post CABG. Patient was extubated last night uneventfully, and he seems to be doing great. Complaining of aches and pains, but his chest x-ray seems to be reassuring, and his labs are also reassuring. Patient is sitting at a bedside chair, relatively asymptomatic except for pain. CBC is relatively normal, hemoglobin is 11. Electrolytes and renal profile are normal. Chest x-ray showed mostly postoperative changes, atelectasis is noted at the bases. Mostly in the left midlung area, and that is expected. GENERAL EXAM: 77-year-old white male, in no distress, on nasal cannula, sitting at a bedside chair. HEAD: Normocephalic/atraumatic. EYES: PERRLA, EOMI, no icterus. NOSE: Clear with pink turbinates. THROAT: No erythema or exudates. NECK: No masses, no JVD, no thyroid enlargement, no adenopathy. CHEST: No chest wall deformity. Symmetrical expansion. Midsternal incision clean dry and intact, approximated, covered with a surgical dressing, 2 mediastinal and left pleural chest tubes are in place, connected to Pleur-evac and wall suction with small to moderate amount of sanguinous output in the Pleur -evac's. Small air leak noted occasionally in the mediastinal Pleur-evac. AV wires to external pacemaker, with backup rate, intrinsic rhythm is sinus rhythm with a rate of 71 BPM LUNGS: Equal air entry with no crackles, wheeze, rhonchi or dullness. CVS: Regular rate and rhythm, normal S1 and S2, no gallops, no murmurs, no rubs ABDOMEN: Soft, nontender. No hepatosplenomegaly, normal bowel sounds, no guarding or rigidity. EXTREMITIES: No clubbing, no edema, no cyanosis, 2+ pulses and upper and lower extremities. SCDs are in place on bilateral lower extremities MUSCULOSKELETAL: Muscle strength and tone normal. SPINE: No scoliosis or deformity SKIN: No rashes CENTRAL NERVOUS SYSTEM: Alert oriented 3, no gross focal neurologic deficits. Objective - Vital Signs Vital signs: Vital Signs Temp 100.4 F H 09/09/18 04:00 Pulse 79 09/09/18 11:12 Resp 25 H 09/09/18 11:00 BP 88/44 09/09/18 10:30 Pulse Ox 97 09/09/18 11:00 Intake & Output 09/08/18 09/09/18 09/09/18 18:59 06:59 18:59 Intake Total 997.944 0779.449 151.056 Output Total 3621 1385 355 Balance -2758.358 -164.551 -203.944 Weight 82.6 kg 82.6 kg Intake: IV 373 837.0 130 .9 60 CO/CI 120 20 Lactated Ringers 1,000 ml 250 600 110 @ 20 mls/hr IV .Q24H [facility] Rx#:[id number] Nitroglycerin-D5w Pmx 50 18.0 mg In Dextrose/Water 1 250ml.bag @ 5 MCG/MIN 1.5 mls/hr IV .Q24H [facility] Rx#: [id number] Pressure bag .9 99 Intake, IV Titration 278.642 383.449 21.056 Amount ACETAMINOPHEN IV (For NPO 100 ) 1,000 mg In Empty Bag 1 bag @ 400 mls/hr IVPB Q6HR [facility] Rx#:[id number] Clevidipine Butyrate 25 302.666 mg In Empty Bag 1 bag @ 1 MG/HR 2 mls/hr IV .Q24H [facility] Rx#:[id number] Desmopressin Acetate 22 50 mcg In Sodium Chloride 0. 9% 50 ml @ 200 mls/hr IVPB ONCE [facility] Rx#: [id number] Heparin Sod,Pork in 0.45% 110.633 NaCl 25,000 unit In 0.45 % NaCl 1 250ml.bag @ 12 UNITS/KG/HR 8.94 mls/hr IV .Q24H [facility] Rx#: [id number] Insulin Regular 100 unit 2.676 53.310 21.056 In Sodium Chloride 0.9% 100 ml @ Per Protocol IV .Q0M [facility] Rx#:[id number] Propofol 1,000 mg In 15.333 27.473 Empty Bag 1 bag @ Titrate IV .Q0M [facility] Rx#: [id number] Blood Product 211 Platelet Irr Pheresis 211 Acda1 Unit [id number] Output: Chest Tube Drainage 471 610 120 Bilateral Mediastinal 375 460 100 Left Lateral Chest 96 150 20 Urine 2150 775 235 Estimated Blood Loss 1000 Other: Voiding Method Indwelling Catheter Indwelling Catheter Indwelling Catheter # Voids 0 ABP, PAP, CO, CI - Last Documented Arterial Blood Pressure 113/36 Pulmonary Artery Pressure 20/11 Cardiac Output 4.4 Cardiac Index 2.6 - Labs CBC & Chem 7: 09/09/18 04:00 09/09/18 04:00 Labs: Abnormal Lab Results - Last 24 Hours (Table) 09/07/18 09/08/18 09/08/18 Range/Units 06:15 09:51 10:48 WBC (3.8-10.6) k/uL RBC (4.30-5.90) m/uL Hgb (13.0-17.5) gm/dL Hct (39.0-53.0) % Plt Count (150-450) k/uL Neutrophils # (1.3-7.7) k/uL Lymphocytes # (1.0-4.8) k/uL APTT (22.0-30.0) sec ABG pO2 383 H 305 H (83-108) mmHg ABG HCO3 (21-25) mmol/L ABG Total CO2 26 H 27 H (19-24) mmol/L ABG O2 Saturation 100.0 H 100.0 H (94-97) % ABG Hematocrit (34.0-46.0) % ABG Potassium (3.4-4.5) mmol/L ABG Ionized Calcium 4.4 L 4.4 L (4.5-5.3) mg/dL ABG Glucose 136 H 156 H (75-99) mg/dL ABG Lactic Acid (0.5-1.6) mmol/L Hemoglobin 12.4 L 11.4 L (13.0-17.5) gm/dL Chloride (98-107) mmol/L Creatinine (0.66-1.25) mg/dL Glucose (74-99) mg/dL POC Glucose (mg/dL) (75-99) mg/dL Calcium (8.4-10.2) mg/dL Magnesium (1.6-2.3) mg/dL Alkaline Phosphatase (38-126) U/L Total Protein (6.3-8.2) g/dL Albumin (3.5-5.0) g/dL Arterial Blood Potassium (3.4-4.5) mmol/L Arterial Blood Glucose 136 H 156 H (75-99) mg/dL Crossmatch See Detail 09/08/18 09/08/18 09/08/18 Range/Units 11:39 12:11 13:14 WBC (3.8-10.6) k/uL RBC (4.30-5.90) m/uL Hgb (13.0-17.5) gm/dL Hct (39.0-53.0) % Plt Count (150-450) k/uL Neutrophils # (1.3-7.7) k/uL Lymphocytes # (1.0-4.8) k/uL APTT (22.0-30.0) sec ABG pO2 >420 H 381 H >420 H (83-108) mmHg ABG HCO3 (21-25) mmol/L ABG Total CO2 25 H 26 H 26 H (19-24) mmol/L ABG O2 Saturation 100.0 H 100.0 H 100.0 H (94-97) % ABG Hematocrit 23 L 23 L 27 L (34.0-46.0) % ABG Potassium 5.2 H (3.4-4.5) mmol/L ABG Ionized Calcium 4.0 L 4.1 L 4.3 L (4.5-5.3) mg/dL ABG Glucose 207 H 202 H 156 H (75-99) mg/dL ABG Lactic Acid 2.1 H 3.4 H* (0.5-1.6) mmol/L Hemoglobin 7.6 L 7.6 L 8.8 L (13.0-17.5) gm/dL Chloride (98-107) mmol/L Creatinine (0.66-1.25) mg/dL Glucose (74-99) mg/dL POC Glucose (mg/dL) (75-99) mg/dL Calcium (8.4-10.2) mg/dL Magnesium (1.6-2.3) mg/dL Alkaline Phosphatase (38-126) U/L Total Protein (6.3-8.2) g/dL Albumin (3.5-5.0) g/dL Arterial Blood Potassium 5.2 H (3.4-4.5) mmol/L Arterial Blood Glucose 207 H 202 H 156 H (75-99) mg/dL Crossmatch 09/08/18 09/08/18 09/08/18 Range/Units 14:25 14:25 14:25 WBC (3.8-10.6) k/uL RBC 2.87 L (4.30-5.90) m/uL Hgb 9.1 L D (13.0-17.5) gm/dL Hct 27.0 L (39.0-53.0) % Plt Count 76 L (150-450) k/uL Neutrophils # (1.3-7.7) k/uL Lymphocytes # 0.8 L (1.0-4.8) k/uL APTT 31.8 H (22.0-30.0) sec ABG pO2 (83-108) mmHg ABG HCO3 (21-25) mmol/L ABG Total CO2 (19-24) mmol/L ABG O2 Saturation (94-97) % ABG Hematocrit (34.0-46.0) % ABG Potassium (3.4-4.5) mmol/L ABG Ionized Calcium (4.5-5.3) mg/dL ABG Glucose (75-99) mg/dL ABG Lactic Acid (0.5-1.6) mmol/L Hemoglobin (13.0-17.5) gm/dL Chloride 112 H (98-107) mmol/L Creatinine (0.66-1.25) mg/dL Glucose 112 H (74-99) mg/dL POC Glucose (mg/dL) (75-99) mg/dL Calcium 7.6 L (8.4-10.2) mg/dL Magnesium 2.7 H (1.6-2.3) mg/dL Alkaline Phosphatase 21 L (38-126) U/L Total Protein 4.3 L (6.3-8.2) g/dL Albumin 2.5 L (3.5-5.0) g/dL Arterial Blood Potassium (3.4-4.5) mmol/L Arterial Blood Glucose (75-99) mg/dL Crossmatch 09/08/18 09/08/18 09/08/18 Range/Units 14:28 15:11 15:26 WBC (3.8-10.6) k/uL RBC (4.30-5.90) m/uL Hgb (13.0-17.5) gm/dL Hct (39.0-53.0) % Plt Count (150-450) k/uL Neutrophils # (1.3-7.7) k/uL Lymphocytes # (1.0-4.8) k/uL APTT (22.0-30.0) sec ABG pO2 394 H (83-108) mmHg ABG HCO3 26 H (21-25) mmol/L ABG Total CO2 27 H (19-24) mmol/L ABG O2 Saturation 100.0 H (94-97) % ABG Hematocrit (34.0-46.0) % ABG Potassium (3.4-4.5) mmol/L ABG Ionized Calcium (4.5-5.3) mg/dL ABG Glucose (75-99) mg/dL ABG Lactic Acid (0.5-1.6) mmol/L Hemoglobin (13.0-17.5) gm/dL Chloride (98-107) mmol/L Creatinine (0.66-1.25) mg/dL Glucose (74-99) mg/dL POC Glucose (mg/dL) 116 H 103 H (75-99) mg/dL Calcium (8.4-10.2) mg/dL Magnesium (1.6-2.3) mg/dL Alkaline Phosphatase (38-126) U/L Total Protein (6.3-8.2) g/dL Albumin (3.5-5.0) g/dL Arterial Blood Potassium (3.4-4.5) mmol/L Arterial Blood Glucose (75-99) mg/dL Crossmatch 09/08/18 09/08/18 09/08/18 Range/Units 17:15 17:15 17:27 WBC 13.0 H (3.8-10.6) k/uL RBC 3.16 L (4.30-5.90) m/uL Hgb 10.1 L (13.0-17.5) gm/dL Hct 29.5 L (39.0-53.0) % Plt Count (150-450) k/uL Neutrophils # 10.0 H (1.3-7.7) k/uL Lymphocytes # (1.0-4.8) k/uL APTT 36.2 H (22.0-30.0) sec ABG pO2 (83-108) mmHg ABG HCO3 (21-25) mmol/L ABG Total CO2 (19-24) mmol/L ABG O2 Saturation (94-97) % ABG Hematocrit (34.0-46.0) % ABG Potassium (3.4-4.5) mmol/L ABG Ionized Calcium (4.5-5.3) mg/dL ABG Glucose (75-99) mg/dL ABG Lactic Acid (0.5-1.6) mmol/L Hemoglobin (13.0-17.5) gm/dL Chloride (98-107) mmol/L Creatinine (0.66-1.25) mg/dL Glucose (74-99) mg/dL POC Glucose (mg/dL) 184 H (75-99) mg/dL Calcium (8.4-10.2) mg/dL Magnesium (1.6-2.3) mg/dL Alkaline Phosphatase (38-126) U/L Total Protein (6.3-8.2) g/dL Albumin (3.5-5.0) g/dL Arterial Blood Potassium (3.4-4.5) mmol/L Arterial Blood Glucose (75-99) mg/dL Crossmatch 09/08/18 09/08/18 09/08/18 Range/Units 18:16 19:15 20:09 WBC (3.8-10.6) k/uL RBC (4.30-5.90) m/uL Hgb (13.0-17.5) gm/dL Hct (39.0-53.0) % Plt Count (150-450) k/uL Neutrophils # (1.3-7.7) k/uL Lymphocytes # (1.0-4.8) k/uL APTT (22.0-30.0) sec ABG pO2 (83-108) mmHg ABG HCO3 (21-25) mmol/L ABG Total CO2 (19-24) mmol/L ABG O2 Saturation (94-97) % ABG Hematocrit (34.0-46.0) % ABG Potassium (3.4-4.5) mmol/L ABG Ionized Calcium (4.5-5.3) mg/dL ABG Glucose (75-99) mg/dL ABG Lactic Acid (0.5-1.6) mmol/L Hemoglobin (13.0-17.5) gm/dL Chloride (98-107) mmol/L Creatinine (0.66-1.25) mg/dL Glucose (74-99) mg/dL POC Glucose (mg/dL) 180 H 164 H 158 H (75-99) mg/dL Calcium (8.4-10.2) mg/dL Magnesium (1.6-2.3) mg/dL Alkaline Phosphatase (38-126) U/L Total Protein (6.3-8.2) g/dL Albumin (3.5-5.0) g/dL Arterial Blood Potassium (3.4-4.5) mmol/L Arterial Blood Glucose (75-99) mg/dL Crossmatch 09/08/18 09/08/18 09/08/18 Range/Units 20:29 20:29 21:08 WBC 12.1 H (3.8-10.6) k/uL RBC 3.32 L (4.30-5.90) m/uL Hgb 10.8 L (13.0-17.5) gm/dL Hct 31.0 L (39.0-53.0) % Plt Count (150-450) k/uL Neutrophils # 10.5 H (1.3-7.7) k/uL Lymphocytes # 0.8 L (1.0-4.8) k/uL APTT (22.0-30.0) sec ABG pO2 (83-108) mmHg ABG HCO3 (21-25) mmol/L ABG Total CO2 (19-24) mmol/L ABG O2 Saturation (94-97) % ABG Hematocrit (34.0-46.0) % ABG Potassium (3.4-4.5) mmol/L ABG Ionized Calcium (4.5-5.3) mg/dL ABG Glucose (75-99) mg/dL ABG Lactic Acid (0.5-1.6) mmol/L Hemoglobin (13.0-17.5) gm/dL Chloride 111 H (98-107) mmol/L Creatinine 0.64 L (0.66-1.25) mg/dL Glucose 147 H (74-99) mg/dL POC Glucose (mg/dL) 144 H (75-99) mg/dL Calcium 8.0 L (8.4-10.2) mg/dL Magnesium (1.6-2.3) mg/dL Alkaline Phosphatase (38-126) U/L Total Protein (6.3-8.2) g/dL Albumin (3.5-5.0) g/dL Arterial Blood Potassium (3.4-4.5) mmol/L Arterial Blood Glucose (75-99) mg/dL Crossmatch 09/08/18 09/08/18 09/08/18 Range/Units 21:58 22:54 22:57 WBC (3.8-10.6) k/uL RBC (4.30-5.90) m/uL Hgb (13.0-17.5) gm/dL Hct (39.0-53.0) % Plt Count (150-450) k/uL Neutrophils # (1.3-7.7) k/uL Lymphocytes # (1.0-4.8) k/uL APTT (22.0-30.0) sec ABG pO2 149 H (83-108) mmHg ABG HCO3 (21-25) mmol/L ABG Total CO2 25 H (19-24) mmol/L ABG O2 Saturation 100.0 H (94-97) % ABG Hematocrit (34.0-46.0) % ABG Potassium (3.4-4.5) mmol/L ABG Ionized Calcium (4.5-5.3) mg/dL ABG Glucose (75-99) mg/dL ABG Lactic Acid (0.5-1.6) mmol/L Hemoglobin (13.0-17.5) gm/dL Chloride (98-107) mmol/L Creatinine (0.66-1.25) mg/dL Glucose (74-99) mg/dL POC Glucose (mg/dL) 154 H 155 H (75-99) mg/dL Calcium (8.4-10.2) mg/dL Magnesium (1.6-2.3) mg/dL Alkaline Phosphatase (38-126) U/L Total Protein (6.3-8.2) g/dL Albumin (3.5-5.0) g/dL Arterial Blood Potassium (3.4-4.5) mmol/L Arterial Blood Glucose (75-99) mg/dL Crossmatch 09/08/18 09/09/18 09/09/18 Range/Units 23:55 01:07 01:59 WBC (3.8-10.6) k/uL RBC (4.30-5.90) m/uL Hgb (13.0-17.5) gm/dL Hct (39.0-53.0) % Plt Count (150-450) k/uL Neutrophils # (1.3-7.7) k/uL Lymphocytes # (1.0-4.8) k/uL APTT (22.0-30.0) sec ABG pO2 (83-108) mmHg ABG HCO3 (21-25) mmol/L ABG Total CO2 (19-24) mmol/L ABG O2 Saturation (94-97) % ABG Hematocrit (34.0-46.0) % ABG Potassium (3.4-4.5) mmol/L ABG Ionized Calcium (4.5-5.3) mg/dL ABG Glucose (75-99) mg/dL ABG Lactic Acid (0.5-1.6) mmol/L Hemoglobin (13.0-17.5) gm/dL Chloride (98-107) mmol/L Creatinine (0.66-1.25) mg/dL Glucose (74-99) mg/dL POC Glucose (mg/dL) 143 H 135 H 129 H (75-99) mg/dL Calcium (8.4-10.2) mg/dL Magnesium (1.6-2.3) mg/dL Alkaline Phosphatase (38-126) U/L Total Protein (6.3-8.2) g/dL Albumin (3.5-5.0) g/dL Arterial Blood Potassium (3.4-4.5) mmol/L Arterial Blood Glucose (75-99) mg/dL Crossmatch 09/09/18 09/09/18 09/09/18 Range/Units 03:01 03:59 04:00 WBC 11.4 H (3.8-10.6) k/uL RBC 3.37 L (4.30-5.90) m/uL Hgb 11.0 L (13.0-17.5) gm/dL Hct 31.5 L (39.0-53.0) % Plt Count (150-450) k/uL Neutrophils # 9.9 H (1.3-7.7) k/uL Lymphocytes # 0.7 L (1.0-4.8) k/uL APTT (22.0-30.0) sec ABG pO2 (83-108) mmHg ABG HCO3 (21-25) mmol/L ABG Total CO2 (19-24) mmol/L ABG O2 Saturation (94-97) % ABG Hematocrit (34.0-46.0) % ABG Potassium (3.4-4.5) mmol/L ABG Ionized Calcium (4.5-5.3) mg/dL ABG Glucose (75-99) mg/dL ABG Lactic Acid (0.5-1.6) mmol/L Hemoglobin (13.0-17.5) gm/dL Chloride (98-107) mmol/L Creatinine (0.66-1.25) mg/dL Glucose (74-99) mg/dL POC Glucose (mg/dL) 123 H 115 H (75-99) mg/dL Calcium (8.4-10.2) mg/dL Magnesium (1.6-2.3) mg/dL Alkaline Phosphatase (38-126) U/L Total Protein (6.3-8.2) g/dL Albumin (3.5-5.0) g/dL Arterial Blood Potassium (3.4-4.5) mmol/L Arterial Blood Glucose (75-99) mg/dL Crossmatch 09/09/18 09/09/18 09/09/18 Range/Units 04:00 04:53 06:08 WBC (3.8-10.6) k/uL RBC (4.30-5.90) m/uL Hgb (13.0-17.5) gm/dL Hct (39.0-53.0) % Plt Count (150-450) k/uL Neutrophils # (1.3-7.7) k/uL Lymphocytes # (1.0-4.8) k/uL APTT (22.0-30.0) sec ABG pO2 (83-108) mmHg ABG HCO3 (21-25) mmol/L ABG Total CO2 (19-24) mmol/L ABG O2 Saturation (94-97) % ABG Hematocrit (34.0-46.0) % ABG Potassium (3.4-4.5) mmol/L ABG Ionized Calcium (4.5-5.3) mg/dL ABG Glucose (75-99) mg/dL ABG Lactic Acid (0.5-1.6) mmol/L Hemoglobin (13.0-17.5) gm/dL Chloride 111 H (98-107) mmol/L Creatinine (0.66-1.25) mg/dL Glucose 117 H (74-99) mg/dL POC Glucose (mg/dL) 105 H 169 H (75-99) mg/dL Calcium 7.9 L (8.4-10.2) mg/dL Magnesium (1.6-2.3) mg/dL Alkaline Phosphatase 31 L (38-126) U/L Total Protein 5.0 L (6.3-8.2) g/dL Albumin 2.9 L (3.5-5.0) g/dL Arterial Blood Potassium (3.4-4.5) mmol/L Arterial Blood Glucose (75-99) mg/dL Crossmatch 09/09/18 09/09/18 09/09/18 Range/Units 06:53 08:11 09:52 WBC (3.8-10.6) k/uL RBC (4.30-5.90) m/uL Hgb (13.0-17.5) gm/dL Hct (39.0-53.0) % Plt Count (150-450) k/uL Neutrophils # (1.3-7.7) k/uL Lymphocytes # (1.0-4.8) k/uL APTT (22.0-30.0) sec ABG pO2 (83-108) mmHg ABG HCO3 (21-25) mmol/L ABG Total CO2 (19-24) mmol/L ABG O2 Saturation (94-97) % ABG Hematocrit (34.0-46.0) % ABG Potassium (3.4-4.5) mmol/L ABG Ionized Calcium (4.5-5.3) mg/dL ABG Glucose (75-99) mg/dL ABG Lactic Acid (0.5-1.6) mmol/L Hemoglobin (13.0-17.5) gm/dL Chloride (98-107) mmol/L Creatinine (0.66-1.25) mg/dL Glucose (74-99) mg/dL POC Glucose (mg/dL) 167 H 73 L 170 H (75-99) mg/dL Calcium (8.4-10.2) mg/dL Magnesium (1.6-2.3) mg/dL Alkaline Phosphatase (38-126) U/L Total Protein (6.3-8.2) g/dL Albumin (3.5-5.0) g/dL Arterial Blood Potassium (3.4-4.5) mmol/L Arterial Blood Glucose (75-99) mg/dL Crossmatch 09/09/18 Range/Units 11:02 WBC (3.8-10.6) k/uL RBC (4.30-5.90) m/uL Hgb (13.0-17.5) gm/dL Hct (39.0-53.0) % Plt Count (150-450) k/uL Neutrophils # (1.3-7.7) k/uL Lymphocytes # (1.0-4.8) k/uL APTT (22.0-30.0) sec ABG pO2 (83-108) mmHg ABG HCO3 (21-25) mmol/L ABG Total CO2 (19-24) mmol/L ABG O2 Saturation (94-97) % ABG Hematocrit (34.0-46.0) % ABG Potassium (3.4-4.5) mmol/L ABG Ionized Calcium (4.5-5.3) mg/dL ABG Glucose (75-99) mg/dL ABG Lactic Acid (0.5-1.6) mmol/L Hemoglobin (13.0-17.5) gm/dL Chloride (98-107) mmol/L Creatinine (0.66-1.25) mg/dL Glucose (74-99) mg/dL POC Glucose (mg/dL) 148 H (75-99) mg/dL Calcium (8.4-10.2) mg/dL Magnesium (1.6-2.3) mg/dL Alkaline Phosphatase (38-126) U/L Total Protein (6.3-8.2) g/dL Albumin (3.5-5.0) g/dL Arterial Blood Potassium (3.4-4.5) mmol/L Arterial Blood Glucose (75-99) mg/dL Crossmatch Assessment and Plan Assessment: #1 Coronary artery disease with 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 #5 Diabetes mellitus. #6 Osteoarthritis. #7 Sleep apnea. #8 Remote history of chronic tobacco dependence. #9 postoperative atelectasis, expected after his CABG. Recommendation: Continue present supportive care measures including oxygen, bronchodilators, incentive spirometry, GI and DVT prophylaxis, early ambulation , encourage deep coughing and deep breathing, continue to monitor labs and chest x-ray on a daily basis, control pain, patient is not ready to be transferred out of the ICU at this point, we'll continue to follow closely. Time with Patient: Less than 30
[2018-09-09 12:20] LABS: Glucose,Whole Blood 119 mg/dL (75-99)
[2018-09-09] MEDS ORDERED: MAGNESIUM HYDROXIDE 2,400 MG/10 ML CUP PO PRN (14:03)
[2018-09-09] MEDS ORDERED: BISACODYL 10 MG SUPP RECTAL PRN (14:03)
[2018-09-09] MEDS: INSULIN REGULAR 100 UNIT in SODIUM CHLORIDE 0.9% 100 ML IV SCH (14:05)
[2018-09-09 14:07] LABS: Glucose,Whole Blood 101 mg/dL (75-99)
[2018-09-09] MEDS ORDERED: ALBUMIN HUMAN 25% 50 ML in EMPTY BAG 1 BAG IVPB ONE (15:30)
[2018-09-09 16:38] LABS: Glucose,Whole Blood 108 mg/dL (75-99)
--- NOTE | 2018-09-09 17:15 | P.PN ---
Subjective Patient is sitting up in a chair. He is extubated following coronary artery bypass grafting. Here very proximal and a very tight LAD stenosis Blood pressure 102 43 and was mercury respirations 16-18 Heart rate 70s sinus rhythm Breath sounds reduced bilaterally Heart sounds are soft Impression Significant very ostial LAD stenosis, left main equivalent status post coronary artery bypass grafting Patient is extubated Continue CT surgery and ICU postoperative care He is currently on IV amiodarone Continue dual antiplatelet therapy Continue low-dose beta blockers and statins Objective - Vital Signs Vital signs: Vital Signs Temp 98.4 F 09/09/18 12:30 Pulse 76 09/09/18 15:46 Resp 14 09/09/18 15:46 BP 102/43 09/09/18 15:00 Pulse Ox 96 09/09/18 15:00 Intake & Output 09/08/18 09/09/18 09/09/18 18:59 06:59 18:59 Intake Total 072.630 9222.449 484.509 Output Total 3621 1385 610 Balance -2758.358 -164.551 -125.491 Weight 82.6 kg 82.6 kg Intake: IV 373 837.0 210 .9 60 CO/CI 120 20 Lactated Ringers 1,000 ml 250 600 190 @ 20 mls/hr IV .Q24H [facility] Rx#:[id number] Nitroglycerin-D5w Pmx 50 18.0 mg In Dextrose/Water 1 250ml.bag @ 5 MCG/MIN 1.5 mls/hr IV .Q24H [facility] Rx#: [id number] Pressure bag .9 99 Intake, IV Titration 278.642 383.449 34.509 Amount ACETAMINOPHEN IV (For NPO 100 ) 1,000 mg In Empty Bag 1 bag @ 400 mls/hr IVPB Q6HR [facility] Rx#:[id number] Clevidipine Butyrate 25 302.666 mg In Empty Bag 1 bag @ 1 MG/HR 2 mls/hr IV .Q24H [facility] Rx#:[id number] Desmopressin Acetate 22 50 mcg In Sodium Chloride 0. 9% 50 ml @ 200 mls/hr IVPB ONCE [facility] Rx#: [id number] Heparin Sod,Pork in 0.45% 110.633 NaCl 25,000 unit In 0.45 % NaCl 1 250ml.bag @ 12 UNITS/KG/HR 8.94 mls/hr IV .Q24H [facility] Rx#: [id number] Insulin Regular 100 unit 2.676 53.310 34.509 In Sodium Chloride 0.9% 100 ml @ Per Protocol IV .Q0M [facility] Rx#:[id number] Propofol 1,000 mg In 15.333 27.473 Empty Bag 1 bag @ Titrate IV .Q0M [facility] Rx#: [id number] Oral 240 Blood Product 211 Platelet Irr Pheresis 211 Acda1 Unit [id number] Output: Chest Tube Drainage 471 610 230 Bilateral Mediastinal 375 460 180 Left Lateral Chest 96 150 50 Urine 2150 775 380 Estimated Blood Loss 1000 Other: Voiding Method Indwelling Catheter Indwelling Catheter Indwelling Catheter # Voids 0 ABP, PAP, CO, CI - Last Documented Arterial Blood Pressure 125/33 Pulmonary Artery Pressure 20/11 Cardiac Output 4.4 Cardiac Index 2.6 - Labs CBC & Chem 7: 09/09/18 04:00 09/09/18 04:00 Labs: Abnormal Lab Results - Last 24 Hours (Table) 09/07/18 09/08/18 09/08/18 Range/Units 06:15 17:15 17:15 WBC 13.0 H (3.8-10.6) k/uL RBC 3.16 L (4.30-5.90) m/uL Hgb 10.1 L (13.0-17.5) gm/dL Hct 29.5 L (39.0-53.0) % Neutrophils # 10.0 H (1.3-7.7) k/uL Lymphocytes # (1.0-4.8) k/uL APTT 36.2 H (22.0-30.0) sec ABG pO2 (83-108) mmHg ABG Total CO2 (19-24) mmol/L ABG O2 Saturation (94-97) % Chloride (98-107) mmol/L Creatinine (0.66-1.25) mg/dL Glucose (74-99) mg/dL POC Glucose (mg/dL) (75-99) mg/dL Calcium (8.4-10.2) mg/dL Alkaline Phosphatase (38-126) U/L Total Protein (6.3-8.2) g/dL Albumin (3.5-5.0) g/dL Crossmatch See Detail 09/08/18 09/08/18 09/08/18 Range/Units 17:27 18:16 19:15 WBC (3.8-10.6) k/uL RBC (4.30-5.90) m/uL Hgb (13.0-17.5) gm/dL Hct (39.0-53.0) % Neutrophils # (1.3-7.7) k/uL Lymphocytes # (1.0-4.8) k/uL APTT (22.0-30.0) sec ABG pO2 (83-108) mmHg ABG Total CO2 (19-24) mmol/L ABG O2 Saturation (94-97) % Chloride (98-107) mmol/L Creatinine (0.66-1.25) mg/dL Glucose (74-99) mg/dL POC Glucose (mg/dL) 184 H 180 H 164 H (75-99) mg/dL Calcium (8.4-10.2) mg/dL Alkaline Phosphatase (38-126) U/L Total Protein (6.3-8.2) g/dL Albumin (3.5-5.0) g/dL Crossmatch 09/08/18 09/08/18 09/08/18 Range/Units 20:09 20:29 20:29 WBC 12.1 H (3.8-10.6) k/uL RBC 3.32 L (4.30-5.90) m/uL Hgb 10.8 L (13.0-17.5) gm/dL Hct 31.0 L (39.0-53.0) % Neutrophils # 10.5 H (1.3-7.7) k/uL Lymphocytes # 0.8 L (1.0-4.8) k/uL APTT (22.0-30.0) sec ABG pO2 (83-108) mmHg ABG Total CO2 (19-24) mmol/L ABG O2 Saturation (94-97) % Chloride 111 H (98-107) mmol/L Creatinine 0.64 L (0.66-1.25) mg/dL Glucose 147 H (74-99) mg/dL POC Glucose (mg/dL) 158 H (75-99) mg/dL Calcium 8.0 L (8.4-10.2) mg/dL Alkaline Phosphatase (38-126) U/L Total Protein (6.3-8.2) g/dL Albumin (3.5-5.0) g/dL Crossmatch 09/08/18 09/08/18 09/08/18 Range/Units 21:08 21:58 22:54 WBC (3.8-10.6) k/uL RBC (4.30-5.90) m/uL Hgb (13.0-17.5) gm/dL Hct (39.0-53.0) % Neutrophils # (1.3-7.7) k/uL Lymphocytes # (1.0-4.8) k/uL APTT (22.0-30.0) sec ABG pO2 (83-108) mmHg ABG Total CO2 (19-24) mmol/L ABG O2 Saturation (94-97) % Chloride (98-107) mmol/L Creatinine (0.66-1.25) mg/dL Glucose (74-99) mg/dL POC Glucose (mg/dL) 144 H 154 H 155 H (75-99) mg/dL Calcium (8.4-10.2) mg/dL Alkaline Phosphatase (38-126) U/L Total Protein (6.3-8.2) g/dL Albumin (3.5-5.0) g/dL Crossmatch 09/08/18 09/08/18 09/09/18 Range/Units 22:57 23:55 01:07 WBC (3.8-10.6) k/uL RBC (4.30-5.90) m/uL Hgb (13.0-17.5) gm/dL Hct (39.0-53.0) % Neutrophils # (1.3-7.7) k/uL Lymphocytes # (1.0-4.8) k/uL APTT (22.0-30.0) sec ABG pO2 149 H (83-108) mmHg ABG Total CO2 25 H (19-24) mmol/L ABG O2 Saturation 100.0 H (94-97) % Chloride (98-107) mmol/L Creatinine (0.66-1.25) mg/dL Glucose (74-99) mg/dL POC Glucose (mg/dL) 143 H 135 H (75-99) mg/dL Calcium (8.4-10.2) mg/dL Alkaline Phosphatase (38-126) U/L Total Protein (6.3-8.2) g/dL Albumin (3.5-5.0) g/dL Crossmatch 09/09/18 09/09/18 09/09/18 Range/Units 01:59 03:01 03:59 WBC (3.8-10.6) k/uL RBC (4.30-5.90) m/uL Hgb (13.0-17.5) gm/dL Hct (39.0-53.0) % Neutrophils # (1.3-7.7) k/uL Lymphocytes # (1.0-4.8) k/uL APTT (22.0-30.0) sec ABG pO2 (83-108) mmHg ABG Total CO2 (19-24) mmol/L ABG O2 Saturation (94-97) % Chloride (98-107) mmol/L Creatinine (0.66-1.25) mg/dL Glucose (74-99) mg/dL POC Glucose (mg/dL) 129 H 123 H 115 H (75-99) mg/dL Calcium (8.4-10.2) mg/dL Alkaline Phosphatase (38-126) U/L Total Protein (6.3-8.2) g/dL Albumin (3.5-5.0) g/dL Crossmatch 09/09/18 09/09/18 09/09/18 Range/Units 04:00 04:00 04:53 WBC 11.4 H (3.8-10.6) k/uL RBC 3.37 L (4.30-5.90) m/uL Hgb 11.0 L (13.0-17.5) gm/dL Hct 31.5 L (39.0-53.0) % Neutrophils # 9.9 H (1.3-7.7) k/uL Lymphocytes # 0.7 L (1.0-4.8) k/uL APTT (22.0-30.0) sec ABG pO2 (83-108) mmHg ABG Total CO2 (19-24) mmol/L ABG O2 Saturation (94-97) % Chloride 111 H (98-107) mmol/L Creatinine (0.66-1.25) mg/dL Glucose 117 H (74-99) mg/dL POC Glucose (mg/dL) 105 H (75-99) mg/dL Calcium 7.9 L (8.4-10.2) mg/dL Alkaline Phosphatase 31 L (38-126) U/L Total Protein 5.0 L (6.3-8.2) g/dL Albumin 2.9 L (3.5-5.0) g/dL Crossmatch 09/09/18 09/09/18 09/09/18 Range/Units 06:08 06:53 08:11 WBC (3.8-10.6) k/uL RBC (4.30-5.90) m/uL Hgb (13.0-17.5) gm/dL Hct (39.0-53.0) % Neutrophils # (1.3-7.7) k/uL Lymphocytes # (1.0-4.8) k/uL APTT (22.0-30.0) sec ABG pO2 (83-108) mmHg ABG Total CO2 (19-24) mmol/L ABG O2 Saturation (94-97) % Chloride (98-107) mmol/L Creatinine (0.66-1.25) mg/dL Glucose (74-99) mg/dL POC Glucose (mg/dL) 169 H 167 H 73 L (75-99) mg/dL Calcium (8.4-10.2) mg/dL Alkaline Phosphatase (38-126) U/L Total Protein (6.3-8.2) g/dL Albumin (3.5-5.0) g/dL Crossmatch 09/09/18 09/09/18 09/09/18 Range/Units 09:52 11:02 12:18 WBC (3.8-10.6) k/uL RBC (4.30-5.90) m/uL Hgb (13.0-17.5) gm/dL Hct (39.0-53.0) % Neutrophils # (1.3-7.7) k/uL Lymphocytes # (1.0-4.8) k/uL APTT (22.0-30.0) sec ABG pO2 (83-108) mmHg ABG Total CO2 (19-24) mmol/L ABG O2 Saturation (94-97) % Chloride (98-107) mmol/L Creatinine (0.66-1.25) mg/dL Glucose (74-99) mg/dL POC Glucose (mg/dL) 170 H 148 H 119 H (75-99) mg/dL Calcium (8.4-10.2) mg/dL Alkaline Phosphatase (38-126) U/L Total Protein (6.3-8.2) g/dL Albumin (3.5-5.0) g/dL Crossmatch 09/09/18 09/09/18 Range/Units 14:04 16:36 WBC (3.8-10.6) k/uL RBC (4.30-5.90) m/uL Hgb (13.0-17.5) gm/dL Hct (39.0-53.0) % Neutrophils # (1.3-7.7) k/uL Lymphocytes # (1.0-4.8) k/uL APTT (22.0-30.0) sec ABG pO2 (83-108) mmHg ABG Total CO2 (19-24) mmol/L ABG O2 Saturation (94-97) % Chloride (98-107) mmol/L Creatinine (0.66-1.25) mg/dL Glucose (74-99) mg/dL POC Glucose (mg/dL) 101 H 108 H (75-99) mg/dL Calcium (8.4-10.2) mg/dL Alkaline Phosphatase (38-126) U/L Total Protein (6.3-8.2) g/dL Albumin (3.5-5.0) g/dL Crossmatch
[2018-09-09 18:21] LABS: Glucose,Whole Blood 278 mg/dL (75-99)
[2018-09-09 19:09] LABS: Glucose,Whole Blood 202 mg/dL (75-99)
[2018-09-09 20:02] LABS: Glucose,Whole Blood 151 mg/dL (75-99)
[2018-09-09] MEDS: SENNOSIDES-DOCUSATE SODIUM 1 EACH TAB PO SCH (20:47)
[2018-09-09 21:51] LABS: Glucose,Whole Blood 57 mg/dL (75-99)
[2018-09-09 21:51] LABS: Glucose,Whole Blood 54 mg/dL (75-99)
[2018-09-09 21:53] LABS: Glucose,Whole Blood 67 mg/dL (75-99)
[2018-09-09 22:07] LABS: Glucose,Whole Blood 59 mg/dL (75-99)
[2018-09-09 22:08] LABS: Glucose,Whole Blood 63 mg/dL (75-99)
[2018-09-09] MEDS ORDERED: DEXTROSE 50%-WATER 50 ML SYRINGE IVP ONE (22:09)
[2018-09-09 22:24] LABS: Glucose,Whole Blood 219 mg/dL (75-99)
--- NOTE | 2018-09-09 22:27 | P.PN ---
Subjective Progress Note Date: 09/08/18 Progress note being dictated for Dr. Hernandez. Interval history: This is a 77-year-old gentleman admitted with unstable angina , CAD, status post cardiac catheterization with 90% LAD stenosis. Evaluated by cardiothoracic surgery, scheduled for CABG on Thursday. Maintained on heparin drip. Reports midsternal chest pain earlier this morning, currently no chest pain palpitations no shortness of breath. Incentive spirometer up to 3800. Maintaining O2 sats of 98% on room air. Afebrile. 09/07/18 sitting up in chair, no further chest pain reported. Denies lightheadedness dizziness or focal deficits. IS up to 4000. Ambulating in hallway, tolerating exertion well. CABG scheduled for tomorrow. 09/08/2018 recently returned to the ICU status post CABG, DAVE to the LAD and saphenous vein graft to the diagonal. Maintain on mechanical ventilation, FiO2 50%/5 of PEEP. Cardiac output 12.9, index 7.5. PA pressures 22/13. Maintained on lactated Ringer's, diprovan, nitroglycerin, cleviprex, insulin drip. Telemetry sinus rhythm. Unable to perform review of systems is patient sedated and on mechanical ventilation. Objective - Vital Signs Vital signs: Vital Signs Temp 97.9 F 09/08/18 17:00 Pulse 101 H 09/08/18 23:15 Resp 38 H 09/08/18 23:15 BP 139/54 09/08/18 22:30 Pulse Ox 100 09/08/18 23:15 Intake & Output 09/08/18 09/08/18 09/09/18 06:59 18:59 06:59 Intake Total 80 862.642 417.584 Output Total 3621 553 Balance 80 -5938.358 -135.416 Weight 74.7 kg Intake: IV 80 373 293.0 .9 80 60 CO/CI 60 Lactated Ringers 1,000 ml 250 200 @ 50 mls/hr IV .Q20H [facility] Rx#:[id number] Nitroglycerin-D5w Pmx 50 6.0 mg In Dextrose/Water 1 250ml.bag @ 5 MCG/MIN 1.5 mls/hr IV .Q24H [facility] Rx#: [id number] Pressure bag .9 27 Intake, IV Titration 278.642 124.584 Amount ACETAMINOPHEN IV (For NPO 100 ) 1,000 mg In Empty Bag 1 bag @ 400 mls/hr IVPB Q6HR [facility] Rx#:[id number] Clevidipine Butyrate 25 79.866 mg In Empty Bag 1 bag @ 1 MG/HR 2 mls/hr IV .Q24H [facility] Rx#:[id number] Desmopressin Acetate 22 50 mcg In Sodium Chloride 0. 9% 50 ml @ 200 mls/hr IVPB ONCE [facility] Rx#: [id number] Heparin Sod,Pork in 0.45% 110.633 NaCl 25,000 unit In 0.45 % NaCl 1 250ml.bag @ 12 UNITS/KG/HR 8.94 mls/hr IV .Q24H [facility] Rx#: [id number] Insulin Regular 100 unit 2.676 17.245 In Sodium Chloride 0.9% 100 ml @ Per Protocol IV .Q0M [facility] Rx#:[id number] Propofol 1,000 mg In 15.333 27.473 Empty Bag 1 bag @ Titrate IV .Q0M [facility] Rx#: [id number] Blood Product 211 Platelet Irr Pheresis 211 Acda1 Unit [id number] Output: Chest Tube Drainage 471 228 Bilateral Mediastinal 375 180 Left Lateral Chest 96 48 Urine 2150 325 Estimated Blood Loss 1000 Other: Voiding Method Toilet Indwelling Catheter Indwelling Catheter # Voids 0 ABP, PAP, CO, CI - Last Documented Arterial Blood Pressure 162/53 Pulmonary Artery Pressure 32/24 Cardiac Output 7.5 Cardiac Index 4.4 - Exam PHYSICAL EXAM: VITAL SIGNS: As above GENERAL: Intubated and on mechanical ventilation HEENT: Conjunctivae normal. eyes normal. Endotracheal tube present NECK: No JVD. No thyroid enlargement. CARDIOVASCULAR: Regular S1 and S2, No murmurs, rubs or gallops. External pacemaker/AV wires present, for backup. RESPIRATION: Symmetrical expansion, no rhonchi , crackles, or wheezes 2 mediastinal and one left pleural chest tube present with moderate amount sanguinous drainage. ABDOMEN: Soft, nontender, nondistended, positive bowel sounds. No rigidity LEGS: No edema. no clubbing, SCDs on bilateral lower extremities NERVOUS SYSTEM: Unable to assess as patient sedated and on mechanical ventilation Skin: no rash - Labs CBC & Chem 7: 09/09/18 04:00 09/09/18 04:00 Labs: Abnormal Lab Results - Last 24 Hours (Table) 09/07/18 09/08/18 09/08/18 Range/Units 06:15 04:17 04:47 WBC (3.8-10.6) k/uL RBC 4.03 L (4.30-5.90) m/uL Hgb 12.7 L (13.0-17.5) gm/dL Hct 37.9 L (39.0-53.0) % Plt Count 147 L (150-450) k/uL Neutrophils # (1.3-7.7) k/uL Lymphocytes # (1.0-4.8) k/uL APTT (22.0-30.0) sec ABG pO2 (83-108) mmHg ABG HCO3 (21-25) mmol/L ABG Total CO2 (19-24) mmol/L ABG O2 Saturation (94-97) % ABG Hematocrit (34.0-46.0) % ABG Potassium (3.4-4.5) mmol/L ABG Ionized Calcium (4.5-5.3) mg/dL ABG Glucose (75-99) mg/dL ABG Lactic Acid (0.5-1.6) mmol/L Hemoglobin (13.0-17.5) gm/dL Chloride 111 H (98-107) mmol/L Creatinine (0.66-1.25) mg/dL Glucose 150 H (74-99) mg/dL POC Glucose (mg/dL) (75-99) mg/dL Calcium (8.4-10.2) mg/dL Magnesium (1.6-2.3) mg/dL Alkaline Phosphatase (38-126) U/L Total Protein 5.7 L (6.3-8.2) g/dL Albumin 3.2 L (3.5-5.0) g/dL Arterial Blood Potassium (3.4-4.5) mmol/L Arterial Blood Glucose (75-99) mg/dL Crossmatch See Detail 09/08/18 09/08/18 09/08/18 Range/Units 04:47 06:26 09:51 WBC (3.8-10.6) k/uL RBC (4.30-5.90) m/uL Hgb (13.0-17.5) gm/dL Hct (39.0-53.0) % Plt Count (150-450) k/uL Neutrophils # (1.3-7.7) k/uL Lymphocytes # (1.0-4.8) k/uL APTT 37.8 H (22.0-30.0) sec ABG pO2 383 H (83-108) mmHg ABG HCO3 (21-25) mmol/L ABG Total CO2 26 H (19-24) mmol/L ABG O2 Saturation 100.0 H (94-97) % ABG Hematocrit (34.0-46.0) % ABG Potassium (3.4-4.5) mmol/L ABG Ionized Calcium 4.4 L (4.5-5.3) mg/dL ABG Glucose 136 H (75-99) mg/dL ABG Lactic Acid (0.5-1.6) mmol/L Hemoglobin 12.4 L (13.0-17.5) gm/dL Chloride (98-107) mmol/L Creatinine (0.66-1.25) mg/dL Glucose (74-99) mg/dL POC Glucose (mg/dL) 150 H (75-99) mg/dL Calcium (8.4-10.2) mg/dL Magnesium (1.6-2.3) mg/dL Alkaline Phosphatase (38-126) U/L Total Protein (6.3-8.2) g/dL Albumin (3.5-5.0) g/dL Arterial Blood Potassium (3.4-4.5) mmol/L Arterial Blood Glucose 136 H (75-99) mg/dL Crossmatch 09/08/18 09/08/18 09/08/18 Range/Units 10:48 11:39 12:11 WBC (3.8-10.6) k/uL RBC (4.30-5.90) m/uL Hgb (13.0-17.5) gm/dL Hct (39.0-53.0) % Plt Count (150-450) k/uL Neutrophils # (1.3-7.7) k/uL Lymphocytes # (1.0-4.8) k/uL APTT (22.0-30.0) sec ABG pO2 305 H >420 H 381 H (83-108) mmHg ABG HCO3 (21-25) mmol/L ABG Total CO2 27 H 25 H 26 H (19-24) mmol/L ABG O2 Saturation 100.0 H 100.0 H 100.0 H (94-97) % ABG Hematocrit 23 L 23 L (34.0-46.0) % ABG Potassium 5.2 H (3.4-4.5) mmol/L ABG Ionized Calcium 4.4 L 4.0 L 4.1 L (4.5-5.3) mg/dL ABG Glucose 156 H 207 H 202 H (75-99) mg/dL ABG Lactic Acid 2.1 H (0.5-1.6) mmol/L Hemoglobin 11.4 L 7.6 L 7.6 L (13.0-17.5) gm/dL Chloride (98-107) mmol/L Creatinine (0.66-1.25) mg/dL Glucose (74-99) mg/dL POC Glucose (mg/dL) (75-99) mg/dL Calcium (8.4-10.2) mg/dL Magnesium (1.6-2.3) mg/dL Alkaline Phosphatase (38-126) U/L Total Protein (6.3-8.2) g/dL Albumin (3.5-5.0) g/dL Arterial Blood Potassium 5.2 H (3.4-4.5) mmol/L Arterial Blood Glucose 156 H 207 H 202 H (75-99) mg/dL Crossmatch 09/08/18 09/08/18 09/08/18 Range/Units 13:14 14:25 14:25 WBC (3.8-10.6) k/uL RBC 2.87 L (4.30-5.90) m/uL Hgb 9.1 L D (13.0-17.5) gm/dL Hct 27.0 L (39.0-53.0) % Plt Count 76 L (150-450) k/uL Neutrophils # (1.3-7.7) k/uL Lymphocytes # 0.8 L (1.0-4.8) k/uL APTT (22.0-30.0) sec ABG pO2 >420 H (83-108) mmHg ABG HCO3 (21-25) mmol/L ABG Total CO2 26 H (19-24) mmol/L ABG O2 Saturation 100.0 H (94-97) % ABG Hematocrit 27 L (34.0-46.0) % ABG Potassium (3.4-4.5) mmol/L ABG Ionized Calcium 4.3 L (4.5-5.3) mg/dL ABG Glucose 156 H (75-99) mg/dL ABG Lactic Acid 3.4 H* (0.5-1.6) mmol/L Hemoglobin 8.8 L (13.0-17.5) gm/dL Chloride 112 H (98-107) mmol/L Creatinine (0.66-1.25) mg/dL Glucose 112 H (74-99) mg/dL POC Glucose (mg/dL) (75-99) mg/dL Calcium 7.6 L (8.4-10.2) mg/dL Magnesium 2.7 H (1.6-2.3) mg/dL Alkaline Phosphatase 21 L (38-126) U/L Total Protein 4.3 L (6.3-8.2) g/dL Albumin 2.5 L (3.5-5.0) g/dL Arterial Blood Potassium (3.4-4.5) mmol/L Arterial Blood Glucose 156 H (75-99) mg/dL Crossmatch 09/08/18 09/08/18 09/08/18 Range/Units 14:25 14:28 15:11 WBC (3.8-10.6) k/uL RBC (4.30-5.90) m/uL Hgb (13.0-17.5) gm/dL Hct (39.0-53.0) % Plt Count (150-450) k/uL Neutrophils # (1.3-7.7) k/uL Lymphocytes # (1.0-4.8) k/uL APTT 31.8 H (22.0-30.0) sec ABG pO2 394 H (83-108) mmHg ABG HCO3 26 H (21-25) mmol/L ABG Total CO2 27 H (19-24) mmol/L ABG O2 Saturation 100.0 H (94-97) % ABG Hematocrit (34.0-46.0) % ABG Potassium (3.4-4.5) mmol/L ABG Ionized Calcium (4.5-5.3) mg/dL ABG Glucose (75-99) mg/dL ABG Lactic Acid (0.5-1.6) mmol/L Hemoglobin (13.0-17.5) gm/dL Chloride (98-107) mmol/L Creatinine (0.66-1.25) mg/dL Glucose (74-99) mg/dL POC Glucose (mg/dL) 116 H (75-99) mg/dL Calcium (8.4-10.2) mg/dL Magnesium (1.6-2.3) mg/dL Alkaline Phosphatase (38-126) U/L Total Protein (6.3-8.2) g/dL Albumin (3.5-5.0) g/dL Arterial Blood Potassium (3.4-4.5) mmol/L Arterial Blood Glucose (75-99) mg/dL Crossmatch 09/08/18 09/08/18 09/08/18 Range/Units 15:26 17:15 17:15 WBC 13.0 H (3.8-10.6) k/uL RBC 3.16 L (4.30-5.90) m/uL Hgb 10.1 L (13.0-17.5) gm/dL Hct 29.5 L (39.0-53.0) % Plt Count (150-450) k/uL Neutrophils # 10.0 H (1.3-7.7) k/uL Lymphocytes # (1.0-4.8) k/uL APTT 36.2 H (22.0-30.0) sec ABG pO2 (83-108) mmHg ABG HCO3 (21-25) mmol/L ABG Total CO2 (19-24) mmol/L ABG O2 Saturation (94-97) % ABG Hematocrit (34.0-46.0) % ABG Potassium (3.4-4.5) mmol/L ABG Ionized Calcium (4.5-5.3) mg/dL ABG Glucose (75-99) mg/dL ABG Lactic Acid (0.5-1.6) mmol/L Hemoglobin (13.0-17.5) gm/dL Chloride (98-107) mmol/L Creatinine (0.66-1.25) mg/dL Glucose (74-99) mg/dL POC Glucose (mg/dL) 103 H (75-99) mg/dL Calcium (8.4-10.2) mg/dL Magnesium (1.6-2.3) mg/dL Alkaline Phosphatase (38-126) U/L Total Protein (6.3-8.2) g/dL Albumin (3.5-5.0) g/dL Arterial Blood Potassium (3.4-4.5) mmol/L Arterial Blood Glucose (75-99) mg/dL Crossmatch 09/08/18 09/08/18 09/08/18 Range/Units 17:27 18:16 19:15 WBC (3.8-10.6) k/uL RBC (4.30-5.90) m/uL Hgb (13.0-17.5) gm/dL Hct (39.0-53.0) % Plt Count (150-450) k/uL Neutrophils # (1.3-7.7) k/uL Lymphocytes # (1.0-4.8) k/uL APTT (22.0-30.0) sec ABG pO2 (83-108) mmHg ABG HCO3 (21-25) mmol/L ABG Total CO2 (19-24) mmol/L ABG O2 Saturation (94-97) % ABG Hematocrit (34.0-46.0) % ABG Potassium (3.4-4.5) mmol/L ABG Ionized Calcium (4.5-5.3) mg/dL ABG Glucose (75-99) mg/dL ABG Lactic Acid (0.5-1.6) mmol/L Hemoglobin (13.0-17.5) gm/dL Chloride (98-107) mmol/L Creatinine (0.66-1.25) mg/dL Glucose (74-99) mg/dL POC Glucose (mg/dL) 184 H 180 H 164 H (75-99) mg/dL Calcium (8.4-10.2) mg/dL Magnesium (1.6-2.3) mg/dL Alkaline Phosphatase (38-126) U/L Total Protein (6.3-8.2) g/dL Albumin (3.5-5.0) g/dL Arterial Blood Potassium (3.4-4.5) mmol/L Arterial Blood Glucose (75-99) mg/dL Crossmatch 09/08/18 09/08/18 09/08/18 Range/Units 20:09 20:29 20:29 WBC 12.1 H (3.8-10.6) k/uL RBC 3.32 L (4.30-5.90) m/uL Hgb 10.8 L (13.0-17.5) gm/dL Hct 31.0 L (39.0-53.0) % Plt Count (150-450) k/uL Neutrophils # 10.5 H (1.3-7.7) k/uL Lymphocytes # 0.8 L (1.0-4.8) k/uL APTT (22.0-30.0) sec ABG pO2 (83-108) mmHg ABG HCO3 (21-25) mmol/L ABG Total CO2 (19-24) mmol/L ABG O2 Saturation (94-97) % ABG Hematocrit (34.0-46.0) % ABG Potassium (3.4-4.5) mmol/L ABG Ionized Calcium (4.5-5.3) mg/dL ABG Glucose (75-99) mg/dL ABG Lactic Acid (0.5-1.6) mmol/L Hemoglobin (13.0-17.5) gm/dL Chloride 111 H (98-107) mmol/L Creatinine 0.64 L (0.66-1.25) mg/dL Glucose 147 H (74-99) mg/dL POC Glucose (mg/dL) 158 H (75-99) mg/dL Calcium 8.0 L (8.4-10.2) mg/dL Magnesium (1.6-2.3) mg/dL Alkaline Phosphatase (38-126) U/L Total Protein (6.3-8.2) g/dL Albumin (3.5-5.0) g/dL Arterial Blood Potassium (3.4-4.5) mmol/L Arterial Blood Glucose (75-99) mg/dL Crossmatch 09/08/18 09/08/18 09/08/18 Range/Units 21:08 21:58 22:54 WBC (3.8-10.6) k/uL RBC (4.30-5.90) m/uL Hgb (13.0-17.5) gm/dL Hct (39.0-53.0) % Plt Count (150-450) k/uL Neutrophils # (1.3-7.7) k/uL Lymphocytes # (1.0-4.8) k/uL APTT (22.0-30.0) sec ABG pO2 (83-108) mmHg ABG HCO3 (21-25) mmol/L ABG Total CO2 (19-24) mmol/L ABG O2 Saturation (94-97) % ABG Hematocrit (34.0-46.0) % ABG Potassium (3.4-4.5) mmol/L ABG Ionized Calcium (4.5-5.3) mg/dL ABG Glucose (75-99) mg/dL ABG Lactic Acid (0.5-1.6) mmol/L Hemoglobin (13.0-17.5) gm/dL Chloride (98-107) mmol/L Creatinine (0.66-1.25) mg/dL Glucose (74-99) mg/dL POC Glucose (mg/dL) 144 H 154 H 155 H (75-99) mg/dL Calcium (8.4-10.2) mg/dL Magnesium (1.6-2.3) mg/dL Alkaline Phosphatase (38-126) U/L Total Protein (6.3-8.2) g/dL Albumin (3.5-5.0) g/dL Arterial Blood Potassium (3.4-4.5) mmol/L Arterial Blood Glucose (75-99) mg/dL Crossmatch 09/08/18 Range/Units 22:57 WBC (3.8-10.6) k/uL RBC (4.30-5.90) m/uL Hgb (13.0-17.5) gm/dL Hct (39.0-53.0) % Plt Count (150-450) k/uL Neutrophils # (1.3-7.7) k/uL Lymphocytes # (1.0-4.8) k/uL APTT (22.0-30.0) sec ABG pO2 149 H (83-108) mmHg ABG HCO3 (21-25) mmol/L ABG Total CO2 25 H (19-24) mmol/L ABG O2 Saturation 100.0 H (94-97) % ABG Hematocrit (34.0-46.0) % ABG Potassium (3.4-4.5) mmol/L ABG Ionized Calcium (4.5-5.3) mg/dL ABG Glucose (75-99) mg/dL ABG Lactic Acid (0.5-1.6) mmol/L Hemoglobin (13.0-17.5) gm/dL Chloride (98-107) mmol/L Creatinine (0.66-1.25) mg/dL Glucose (74-99) mg/dL POC Glucose (mg/dL) (75-99) mg/dL Calcium (8.4-10.2) mg/dL Magnesium (1.6-2.3) mg/dL Alkaline Phosphatase (38-126) U/L Total Protein (6.3-8.2) g/dL Albumin (3.5-5.0) g/dL Arterial Blood Potassium (3.4-4.5) mmol/L Arterial Blood Glucose (75-99) mg/dL Crossmatch Assessment and Plan Assessment: -Unstable angina, CAD, status post cardiac catheterization with 90% LAD stenosis. Status post CABG. -Acute respiratory failure, mechanical ventilator-dependent, expected outcome of CABG -Postop blood loss anemia, expected outcome of CABG -Sleep apnea -History of DVT -Remote history of nicotine dependence -Diabetes mellitus Plan: Continue on current medication regime ,monitoring and symptomatic treatment. As mentioned above recently returned to ICU ,status post CABG. Hemodynamically stable, vent weaning in progress. Close monitoring of Accu- Cheks. Follow closely with cardiothoracic surgery, pulmonary. Further recommendations to follow. The impression and plan of care has been dictated as directed. : I performed a history and examination of this patient, discussed the same with the dictator. I agree with the dictator's note ,documented as a scribe. Any additional findings or plans will be noted.
[2018-09-09 23:15] LABS: Glucose,Whole Blood 167 mg/dL (75-99)
[2018-09-10] MEDS: HEPARIN SODIUM,PORCINE 5,000 UNIT/ML 1 ML VIAL SQ SCH ×3 (00:07→18:03)
[2018-09-10] MEDS: KETOROLAC 30 MG/ML 1 ML VIAL IVP SCH ×4 (00:07→18:03)
[2018-09-10] MEDS: HYDROcodone/APAP 5-325MG 1 EACH TAB PO PRN ×5 (00:10→20:24)
[2018-09-10 00:22] LABS: Glucose,Whole Blood 148 mg/dL (75-99)
[2018-09-10 01:45] LABS: Glucose,Whole Blood 122 mg/dL (75-99)
[2018-09-10 03:06] LABS: Glucose,Whole Blood 122 mg/dL (75-99)
[2018-09-10 04:00] LABS: Glucose,Whole Blood 103 mg/dL (75-99)
[2018-09-10 04:47] LABS: Glucose,Whole Blood 98 mg/dL (75-99)
[2018-09-10 05:07] LABS: Basophils % (A) 0 %; Eosinophils # (A) 0.1 k/uL (0-0.7); Eosinophils % (A) 1 %; HCT 27.8 % (39.0-53.0); Lymphocytes # (A) 1.5 k/uL (1.0-4.8); Lymphocytes % (A) 15 %; MCHC 32.7 g/dL (31.0-37.0); MCV 94.9 fL (80.0-100.0); Mean Platelet Volume 7.8; Monocytes # (A) 0.9 k/uL (0-1.0); Monocytes % (A) 9 %; Neutrophils # (A) 7.1 k/uL (1.3-7.7); Neutrophils % (A) 72 %; Platelet Count 115 k/uL (150-450); RBC 2.92 m/uL (4.30-5.90); RDW 14.4 % (11.5-15.5); WBC 9.8 k/uL (3.8-10.6)
[2018-09-10 05:10] LABS: Ionized Calcium 4.7 mg/dL (4.5-5.3)
[2018-09-10 05:18] LABS: ALT 40 U/L (21-72); AST 38 U/L (17-59); Albumin 2.9 g/dL (3.5-5.0); Alkaline Phosphatase 31 U/L (38-126); Anion Gap 4 mmol/L; Blood Urea Nitrogen 17 mg/dL (9-20); Calcium 7.7 mg/dL (8.4-10.2); Carbon Dioxide 27 mmol/L (22-30); Chloride 109 mmol/L (98-107); Glucose 110 mg/dL (74-99); Magnesium 2.4 mg/dL (1.6-2.3); Potassium 4.2 mmol/L (3.5-5.1); Sodium 140 mmol/L (137-145); Total Bilirubin 0.5 mg/dL (0.2-1.3); Total Protein 4.9 g/dL (6.3-8.2)
[2018-09-10 05:24] LABS: HGB 9.1 gm/dL (13.0-17.5)
[2018-09-10] MEDS: PANTOPRAZOLE 40 MG TABLET PO SCH (07:09)
[2018-09-10] MEDS: IPRATROPIUM-ALBUTEROL 3 ML NEB INHALATION SCH ×4 (07:19→19:54)
[2018-09-10 07:40] LABS: Glucose,Whole Blood 120 mg/dL (75-99)
[2018-09-10] MEDS: CLOPIDOGREL 75 MG TAB PO SCH (07:48)
[2018-09-10] MEDS: METOPROLOL TARTRATE 25 MG TAB PO SCH ×2 (07:48→08:02)
[2018-09-10] MEDS: ATORVASTATIN 80 MG TAB PO SCH (07:49)
[2018-09-10] MEDS: ASPIRIN 325 MG TAB PO SCH (07:49)
--- NOTE | 2018-09-10 08:37 | XR ---
EXAMINATION TYPE: XR chest 1V portable DATE OF EXAM: 09/10/2018 COMPARISON: 09/09/2018 INDICATION: Postop CABG TECHNIQUE: Single frontal view of the chest is obtained. FINDINGS: The heart size is normal. The pulmonary vasculature is normal. The lungs are clear. There is a left-sided chest tube. No pneumothorax is evident. There are 2 mediastinal tubes are prese nt. Sternotomy wires are present. Right central venous catheter sheath is on the right. No pneumothor ax is evident. IMPRESSION: 1. Multiple lines and catheters discussed above. 2. No pneumothorax.
[2018-09-10] MEDS: METOPROLOL TARTRATE 50 MG TAB PO SCH ×2 (08:57→20:24)
[2018-09-10] MEDS: LACTATED RINGERS 1,000 ML IV SCH (09:50)
--- NOTE | 2018-09-10 10:38 | P.PN ---
Subjective Progress Note Date: 09/10/18 Principal diagnosis: Coronary artery disease with ostial LAD stenosis 99%, diabetes with the preoperative hemoglobin A1c of 6.5%, skin cancer with removal, DVT left lower extremity in 2012 and right lower extremity in 2013 on chronic Xarelto for anticoagulation, recent left rotator cuff repair, previous tobacco dependence, COPD with preoperative FEV1 67% of predicted, obstructive sleep apnea without home CPAP use, peripheral vascular disease, and family history of early coronary artery disease with his father diagnosed at 52 years old. POD #2 coronary bypass grafting 2 vessels, left internal mammary artery to the left anterior descending artery, a reverse greater saphenous vein graft to the diagonal coronary artery. Endoscopic vein harvest, left greater saphenous vein from the thigh. Epi-aortic ultrasound and intraoperative transesophageal echocardiogram. Postoperative acute blood loss anemia, an expected outcome given cardiopulmonary bypass and hemodilution. The patient is sitting up to the bedside chair. He is in no acute distress. His bedside telemetry is showing sinus tachycardia heart rate 118. He currently rates his pain 5 out of 10 on the pain scale to his chest tube insertion sites, denies any complaints of shortness of breath. He remains on 2 L nasal cannula with oxygen saturations 97% and he is achieving 1000 mL on his incentive spirometry with encouragement. His Cleviprex drip is on hold at this time and his blood pressure is currently 148/47. Laboratory results this morning show a hemoglobin count of 9.1, platelet count of 115. Objective - Vital Signs Vital signs: Vital Signs Temp 98.2 F 09/10/18 04:00 Pulse 100 09/10/18 07:34 Resp 18 09/10/18 07:00 BP 123/60 09/10/18 06:00 Pulse Ox 97 09/10/18 07:00 Intake & Output 09/09/18 09/10/18 09/10/18 18:59 06:59 18:59 Intake Total 964.509 365.430 Output Total 745 872 Balance 219.509 -506.570 Weight 82.6 kg 92 kg Intake: IV 270 311 CO/CI 20 Lactated Ringers 1,000 ml 250 260 @ 20 mls/hr IV .Q24H [facility] Rx#:[id number] Pressure bag .9 51 Intake, IV Titration 34.509 54.430 Amount Insulin Regular 100 unit 34.509 54.430 In Sodium Chloride 0.9% 100 ml @ Per Protocol IV .Q0M [facility] Rx#:[id number] Oral 660 Output: Chest Tube Drainage 300 380 Bilateral Mediastinal 250 275 Left Lateral Chest 50 105 Urine 445 492 Other: Voiding Method Indwelling Catheter Indwelling Catheter # Voids 0 ABP, PAP, CO, CI - Last Documented Arterial Blood Pressure 168/38 Pulmonary Artery Pressure 20/11 Cardiac Output 4.4 Cardiac Index 2.6 - Constitutional General appearance: Present: cooperative, no acute distress - Respiratory Details: Lung sounds essentially clear throughout, diminished his bilateral bases. Respirations are symmetrical and nonlabored. Oxygen saturation are 97% on 2 L nasal cannula. He is achieving 1000 mL on his incentive spirometry. Mediastinal and left pleural chest tubes remain in place to low continuous wall suction -20 cm H2O. No air leak is present. Draining thin serosanguineous drainage. Mediastinal chest tubes drained 600 mL in the last 24 hours, 185 mL in the last 8 hours. Left pleural chest tube drained 155 mL in the last 24 hours, 75 mL output in the last 8 hours. - Cardiovascular Details: Regular rhythm with a tachycardic rate. S1 and S2 present, negative for S3, gallop or murmur. Sternum is stable. Bedside telemetry showing sinus tachycardia heart rate 118. Heart hugger is in place and he is demonstrating appropriate use. Atrial and ventricular epicardial pacemaker wires in place and connected to backup pacemaker generator with a VVI 50. Knee-high JOSE hose and sequential compression devices in place to his bilateral lower extremities. Right IJ Cordis in place connected to continuous CVP monitoring, current CVP pressure is 5 mmHg. No edema present. Right radial arterial line in place and functioning. - Gastrointestinal Gastrointestinal Comment(s): Abdomen is soft, nontender and nondistended. Hypoactive bowel sounds present in all 4 abdominal quadrants. Tolerating oral intake. Denies passing flatus. - Genitourinary Genitourinary Comment(s): Burton catheter for accurate I&O. Draining clear yellow urine. 315 mL output in the last 8 hours. - Integumentary Integumentary Comment(s): Skin is warm and dry. No clubbing or cyanosis present. Midline sternal incision is clean, dry and approximated. No drainage or redness present. Gauze dressing clean, dry and intact. Left lower extremity EVH sites clean, dry and approximated. No drainage or redness present. - Neurologic Neurologic: Present: CNII-XII intact - Musculoskeletal Musculoskeletal: Present: gait normal, generalized weakness, strength equal bilaterally - Psychiatric Psychiatric: Present: A&O x's 3, appropriate affect, intact judgment & insight - Allied health notes Allied health notes reviewed: nursing - Labs CBC & Chem 7: 09/10/18 05:00 09/10/18 05:00 Labs: Abnormal Lab Results - Last 24 Hours (Table) 09/09/18 09/09/18 09/09/18 Range/Units 09:52 11:02 12:18 RBC (4.30-5.90) m/uL Hgb (13.0-17.5) gm/dL Hct (39.0-53.0) % Plt Count (150-450) k/uL Chloride (98-107) mmol/L Glucose (74-99) mg/dL POC Glucose (mg/dL) 170 H 148 H 119 H (75-99) mg/dL Calcium (8.4-10.2) mg/dL Magnesium (1.6-2.3) mg/dL Alkaline Phosphatase (38-126) U/L Total Protein (6.3-8.2) g/dL Albumin (3.5-5.0) g/dL 09/09/18 09/09/18 09/09/18 Range/Units 14:04 16:36 18:05 RBC (4.30-5.90) m/uL Hgb (13.0-17.5) gm/dL Hct (39.0-53.0) % Plt Count (150-450) k/uL Chloride (98-107) mmol/L Glucose (74-99) mg/dL POC Glucose (mg/dL) 101 H 108 H 278 H (75-99) mg/dL Calcium (8.4-10.2) mg/dL Magnesium (1.6-2.3) mg/dL Alkaline Phosphatase (38-126) U/L Total Protein (6.3-8.2) g/dL Albumin (3.5-5.0) g/dL 09/09/18 09/09/18 09/09/18 Range/Units 19:07 20:01 21:49 RBC (4.30-5.90) m/uL Hgb (13.0-17.5) gm/dL Hct (39.0-53.0) % Plt Count (150-450) k/uL Chloride (98-107) mmol/L Glucose (74-99) mg/dL POC Glucose (mg/dL) 202 H 151 H 54 L (75-99) mg/dL Calcium (8.4-10.2) mg/dL Magnesium (1.6-2.3) mg/dL Alkaline Phosphatase (38-126) U/L Total Protein (6.3-8.2) g/dL Albumin (3.5-5.0) g/dL 09/09/18 09/09/18 09/09/18 Range/Units 21:51 21:52 22:05 RBC (4.30-5.90) m/uL Hgb (13.0-17.5) gm/dL Hct (39.0-53.0) % Plt Count (150-450) k/uL Chloride (98-107) mmol/L Glucose (74-99) mg/dL POC Glucose (mg/dL) 57 L 67 L 59 L (75-99) mg/dL Calcium (8.4-10.2) mg/dL Magnesium (1.6-2.3) mg/dL Alkaline Phosphatase (38-126) U/L Total Protein (6.3-8.2) g/dL Albumin (3.5-5.0) g/dL 09/09/18 09/09/18 09/09/18 Range/Units 22:07 22:23 23:13 RBC (4.30-5.90) m/uL Hgb (13.0-17.5) gm/dL Hct (39.0-53.0) % Plt Count (150-450) k/uL Chloride (98-107) mmol/L Glucose (74-99) mg/dL POC Glucose (mg/dL) 63 L 219 H 167 H (75-99) mg/dL Calcium (8.4-10.2) mg/dL Magnesium (1.6-2.3) mg/dL Alkaline Phosphatase (38-126) U/L Total Protein (6.3-8.2) g/dL Albumin (3.5-5.0) g/dL 09/10/18 09/10/18 09/10/18 Range/Units 00:20 01:44 03:04 RBC (4.30-5.90) m/uL Hgb (13.0-17.5) gm/dL Hct (39.0-53.0) % Plt Count (150-450) k/uL Chloride (98-107) mmol/L Glucose (74-99) mg/dL POC Glucose (mg/dL) 148 H 122 H 122 H (75-99) mg/dL Calcium (8.4-10.2) mg/dL Magnesium (1.6-2.3) mg/dL Alkaline Phosphatase (38-126) U/L Total Protein (6.3-8.2) g/dL Albumin (3.5-5.0) g/dL 09/10/18 09/10/18 09/10/18 Range/Units 03:58 05:00 05:00 RBC 2.92 L (4.30-5.90) m/uL Hgb 9.1 L D (13.0-17.5) gm/dL Hct 27.8 L (39.0-53.0) % Plt Count 115 L (150-450) k/uL Chloride 109 H (98-107) mmol/L Glucose 110 H (74-99) mg/dL POC Glucose (mg/dL) 103 H (75-99) mg/dL Calcium 7.7 L (8.4-10.2) mg/dL Magnesium 2.4 H (1.6-2.3) mg/dL Alkaline Phosphatase 31 L (38-126) U/L Total Protein 4.9 L (6.3-8.2) g/dL Albumin 2.9 L (3.5-5.0) g/dL 09/10/18 Range/Units 07:39 RBC (4.30-5.90) m/uL Hgb (13.0-17.5) gm/dL Hct (39.0-53.0) % Plt Count (150-450) k/uL Chloride (98-107) mmol/L Glucose (74-99) mg/dL POC Glucose (mg/dL) 120 H (75-99) mg/dL Calcium (8.4-10.2) mg/dL Magnesium (1.6-2.3) mg/dL Alkaline Phosphatase (38-126) U/L Total Protein (6.3-8.2) g/dL Albumin (3.5-5.0) g/dL - Imaging and Cardiology Chest x-ray: report reviewed, image reviewed Assessment and Plan (1) History of DVT (deep vein thrombosis) Current Visit: Yes Status: Acute Code(s): Z86.718 - PERSONAL HISTORY OF OTHER VENOUS THROMBOSIS AND EMBOLISM SNOMED Code(s): 131942922 (2) Obstructive sleep apnea Current Visit: Yes Status: Acute Code(s): G47.33 - OBSTRUCTIVE SLEEP APNEA ( ADULT) (PEDIATRIC) SNOMED Code(s): 71827964 (3) COPD (chronic obstructive pulmonary disease) Current Visit: Yes Status: Acute Code(s): J44.9 - CHRONIC OBSTRUCTIVE PULMONARY DISEASE, UNSPECIFIED SNOMED Code(s): 67469535 (4) Unstable angina pectoris Current Visit: Yes Status: Acute Code(s): I20.0 - UNSTABLE ANGINA SNOMED Code(s): 5484798 (5) Chronic anticoagulation Current Visit: Yes Status: Chronic Code(s): Z79.01 - PENITENTIARY (CURRENT) USE OF ANTICOAGULANTS SNOMED Code(s): 776893685 (6) Coronary artery disease Current Visit: Yes Status: Chronic Code(s): I25.10 - ATHSCL HEART DISEASE OF [place] CORONARY ARTERY W/O ANG PCTRS SNOMED Code(s): 23413338 (7) Diabetes mellitus Current Visit: Yes Status: Chronic Code(s): E11.9 - TYPE 2 DIABETES MELLITUS WITHOUT COMPLICATIONS SNOMED Code(s): 48857732 (8) Family history of premature CAD Current Visit: Yes Status: Chronic Code(s): Z82.49 - FAMILY HX OF ISCHEM HEART DIS AND OTH DIS OF THE [facility] SNOMED Code(s): 942579635 (9) History of skin cancer Current Visit: No Status: Resolved Code(s): Z85.828 - PERSONAL HISTORY OF OTHER MALIGNANT NEOPLASM OF SKIN SNOMED Code(s): 395183536 (10) Tobacco dependence in remission Current Visit: No Status: Resolved Code(s): F17.201 - NICOTINE DEPENDENCE, UNSPECIFIED, IN REMISSION SNOMED Code(s): 549484067 (11) Hypertension Current Visit: Yes Status: Acute Code(s): I10 - ESSENTIAL (PRIMARY) HYPERTENSION SNOMED Code(s): 97853015 Plan: 1. Continue aspirin, statin, Plavix, beta marline. Will increase his metoprolol tartrate 50 mg by mouth twice a day. 2. Keep right IJ Cordis in place with continuous CVP monitoring. 3. Will add Xarelto back to medication regimen prior to discharge once all of lines and tubes have been discontinued. 4. Wean O2 as tolerated. Encourage incentive spirometry use, 10 times every hour while awake. 5. Increase activity, ambulate as tolerated. PT/OT/cardiac rehab following. 6. Will monitor daily labs and x-rays. Electrolyte replacement per protocol. We will monitor his platelet count. 7. Pain control with current medication regimen. 8. Insulin management per primary care service. 9. GI prophylaxis with Protonix, DVT prophylaxis with subcu heparin and SCDs. 10. Encourage continued smoking cessation. 11. 25% albumin 1 now. 12. More recommendations to follow based on his clinical course. Time with Patient: Greater than 30
[2018-09-10 11:22] LABS: Glucose,Whole Blood 251 mg/dL (75-99)
[2018-09-10] MEDS ORDERED: LOSARTAN 25 MG TAB PO SCH (12:00)
[2018-09-10] MEDS ORDERED: ALBUMIN HUMAN 25% 50 ML in EMPTY BAG 1 BAG IVPB ONE (12:00)
[2018-09-10] MEDS ORDERED: INSULIN ASPART 100 UNIT/ML 1 ML 10 ML VIAL SQ ONE (12:12)
--- NOTE | 2018-09-10 12:49 | P.PN ---
Subjective Progress Note Date: 09/10/18 Principal diagnosis: Status post CABG postoperative day #2. Principal diagnosis: This is a very pleasant 77-year-old gentleman who follows with Dr. Molina as his primary care physician. 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 He had recently been having episodes of chest discomfort with exertion. Even walking out to his mailbox and back he would have to stop and rest until the pain subsided. He was seen and evaluated by Dr. Hood who directed him here to the emergency room on 09/02/2018. He had subsequently undergone cardiac catheterization and was found to have a 99% stenosis of the ostial portion of the left anterior descending artery. He does have a normal left ventricular systolic function. He was not a stent candidate and has been seen and evaluated by cardiothoracic surgery who are planning to do coronary artery bypass grafting on 09/08/2018. We are consulted for the same. The patient does have a 30 year pack per day smoking history however quit 30 years ago. He denies any history of COPD, emphysema or asthma. He is not utilizing any inhalers or oxygen in the outpatient setting. He has not been seen by a brake repair supervisor in the past. He is seen today in consultation on the selective care unit. He is currently awake and alert in no acute distress. He denies any chest discomfort currently. No shortness of breath, cough or congestion. No dizziness or lightheadedness. He does have preserved left ventricular systolic function with ejection fraction 55-60%. No valvular heart disease. White count 6.8. [id number]. Creatinine 0.73. FEV1 value greater than 2 L. Chest x-ray showed no acute cardiopulmonary process. Carotid Dopplers without significant stenosis. On 09/08/2018 patient seen in follow-up in the intensive care units status post coronary bypass grafting, with DAVE to LAD, and SVG to the diagonal branch. Patient sedated, intubated, on mechanical ventilator, current settings are assist-control mode with a rate of 12, tidal volume of 600, FiO2 of 50% and PEEP of 5. Postoperative blood gases showed pO2 of 394, pCO2 41, and pH of 7.41 , FiO2 was dropped down to 50%. CBC showed white blood count of 7.9, hemoglobin of 9.1, sodium of 141, potassium is 4.3, chloride is 112, BUN of 11, creatinine of 0.66. Lung sounds are clear to auscultation, midline incision is clean dry and intact, approximated, covered with surgical dressing, AV wires to an external pacemaker with a backup rate, patient is sinus rhythm with a rate of 71 BPM, blood pressures 119/60, PA pressures of 22/13, cardiac output is 12.9 , and cardiac index of 7.5. 2 mediastinal chest tubes with a proximal 110 cigarettes output in the Pleur-evac, and there is occasional mild air leak noted , left pleural chest tube with of 40 mL of sanguinous output. IV fluids include lactated Ringer's at a rate of 50, nitroglycerin at 5 mics per minute, Diprivan, Cleviprex at 2 mg/h, insulin to be started for blood sugar over 110. Patient is nonoliguric. Postop chest x-ray was reviewed by Dr. Moore, showed mediastinal drains, epicardial pacing leads, left-sided thoracostomy tube endotracheal tube NG tube [place] catheter in appropriate positions, no pneumothorax, or pulmonary vascular congestion. Left mid lung subsegmental atelectasis noted. On 09/09/2018, patient is postoperative day #1, status post CABG. Patient was extubated last night uneventfully, and he seems to be doing great. Complaining of aches and pains, but his chest x-ray seems to be reassuring, and his labs are also reassuring. Patient is sitting at a bedside chair, relatively asymptomatic except for pain. CBC is relatively normal, hemoglobin is 11. Electrolytes and renal profile are normal. Chest x-ray showed mostly postoperative changes, atelectasis is noted at the bases. Mostly in the left midlung area, and that is expected. On 09/2018, patient is postoperative day #2. Doing relatively well, sitting at a bedside chair, chest tubes remains in place, chest x-ray showed no evidence of acute process. Patient is saturating well on 2 L nasal cannula, he is in no distress, continues to have some vague chest discomfort and pain related to his surgery. Doing well with incentive spirometry. Labs were reviewed, hemoglobin is 9.1, blood pressure is 148/47. Objective - Vital Signs Vital signs: Vital Signs Temp 99.9 F H 09/10/18 08:00 Pulse 88 09/10/18 11:30 Resp 17 09/10/18 11:00 BP 119/53 09/10/18 11:00 Pulse Ox 96 09/10/18 11:00 Intake & Output 09/09/18 09/10/18 09/10/18 18:59 06:59 18:59 Intake Total 964.509 365.430 20 Output Total 745 872 140 Balance 219.509 -506.570 -120 Weight 82.6 kg 92 kg Intake: IV 270 311 20 CO/CI 20 Lactated Ringers 1,000 ml 250 260 20 @ 20 mls/hr IV .Q24H [facility] Rx#:[id number] Pressure bag .9 51 Intake, IV Titration 34.509 54.430 Amount Insulin Regular 100 unit 34.509 54.430 In Sodium Chloride 0.9% 100 ml @ Per Protocol IV .Q0M [facility] Rx#:[id number] Oral 660 Output: Chest Tube Drainage 300 380 60 Bilateral Mediastinal 250 275 30 Left Lateral Chest 50 105 30 Urine 445 492 80 Other: Voiding Method Indwelling Catheter Indwelling Catheter Indwelling Catheter # Voids 0 0 ABP, PAP, CO, CI - Last Documented Arterial Blood Pressure 168/38 Pulmonary Artery Pressure 20/11 Cardiac Output 4.4 Cardiac Index 2.6 - Exam GENERAL EXAM: 77- on 2 L nasal cannula, sitting at a bedside chair. Not in any form of distress HEAD: Normocephalic/atraumatic. EYES: PERRLA, EOMI, no icterus. NOSE: Clear with pink turbinates. THROAT: No erythema or exudates. NECK: No masses, no JVD, no thyroid enlargement, no adenopathy. Moist mucous membranes noted. CHEST: No chest wall deformity. Symmetrical chest expansion, chest tubes were noted. LUNGS: Equal air entry with no crackles, wheeze, rhonchi or dullness. CVS: Regular rate and rhythm, normal S1 and S2, no gallops, no murmurs, no rubs ABDOMEN: Soft, nontender. No hepatosplenomegaly, normal bowel sounds, no guarding or rigidity. EXTREMITIES: No clubbing, no edema, no cyanosis, 2+ pulses and upper and lower extremities. SCDs are in place on bilateral lower extremities MUSCULOSKELETAL: Muscle strength and tone normal. SPINE: No scoliosis or deformity SKIN: No rashes CENTRAL NERVOUS SYSTEM: Alert oriented 3, no gross focal neurologic deficits. - Labs CBC & Chem 7: 09/10/18 05:00 09/10/18 05:00 Labs: Abnormal Lab Results - Last 24 Hours (Table) 09/09/18 09/09/18 09/09/18 Range/Units 14:04 16:36 18:05 RBC (4.30-5.90) m/uL Hgb (13.0-17.5) gm/dL Hct (39.0-53.0) % Plt Count (150-450) k/uL Chloride (98-107) mmol/L Glucose (74-99) mg/dL POC Glucose (mg/dL) 101 H 108 H 278 H (75-99) mg/dL Calcium (8.4-10.2) mg/dL Magnesium (1.6-2.3) mg/dL Alkaline Phosphatase (38-126) U/L Total Protein (6.3-8.2) g/dL Albumin (3.5-5.0) g/dL 09/09/18 09/09/18 09/09/18 Range/Units 19:07 20:01 21:49 RBC (4.30-5.90) m/uL Hgb (13.0-17.5) gm/dL Hct (39.0-53.0) % Plt Count (150-450) k/uL Chloride (98-107) mmol/L Glucose (74-99) mg/dL POC Glucose (mg/dL) 202 H 151 H 54 L (75-99) mg/dL Calcium (8.4-10.2) mg/dL Magnesium (1.6-2.3) mg/dL Alkaline Phosphatase (38-126) U/L Total Protein (6.3-8.2) g/dL Albumin (3.5-5.0) g/dL 09/09/18 09/09/18 09/09/18 Range/Units 21:51 21:52 22:05 RBC (4.30-5.90) m/uL Hgb (13.0-17.5) gm/dL Hct (39.0-53.0) % Plt Count (150-450) k/uL Chloride (98-107) mmol/L Glucose (74-99) mg/dL POC Glucose (mg/dL) 57 L 67 L 59 L (75-99) mg/dL Calcium (8.4-10.2) mg/dL Magnesium (1.6-2.3) mg/dL Alkaline Phosphatase (38-126) U/L Total Protein (6.3-8.2) g/dL Albumin (3.5-5.0) g/dL 09/09/18 09/09/18 09/09/18 Range/Units 22:07 22:23 23:13 RBC (4.30-5.90) m/uL Hgb (13.0-17.5) gm/dL Hct (39.0-53.0) % Plt Count (150-450) k/uL Chloride (98-107) mmol/L Glucose (74-99) mg/dL POC Glucose (mg/dL) 63 L 219 H 167 H (75-99) mg/dL Calcium (8.4-10.2) mg/dL Magnesium (1.6-2.3) mg/dL Alkaline Phosphatase (38-126) U/L Total Protein (6.3-8.2) g/dL Albumin (3.5-5.0) g/dL 09/10/18 09/10/18 09/10/18 Range/Units 00:20 01:44 03:04 RBC (4.30-5.90) m/uL Hgb (13.0-17.5) gm/dL Hct (39.0-53.0) % Plt Count (150-450) k/uL Chloride (98-107) mmol/L Glucose (74-99) mg/dL POC Glucose (mg/dL) 148 H 122 H 122 H (75-99) mg/dL Calcium (8.4-10.2) mg/dL Magnesium (1.6-2.3) mg/dL Alkaline Phosphatase (38-126) U/L Total Protein (6.3-8.2) g/dL Albumin (3.5-5.0) g/dL 09/10/18 09/10/18 09/10/18 Range/Units 03:58 05:00 05:00 RBC 2.92 L (4.30-5.90) m/uL Hgb 9.1 L D (13.0-17.5) gm/dL Hct 27.8 L (39.0-53.0) % Plt Count 115 L (150-450) k/uL Chloride 109 H (98-107) mmol/L Glucose 110 H (74-99) mg/dL POC Glucose (mg/dL) 103 H (75-99) mg/dL Calcium 7.7 L (8.4-10.2) mg/dL Magnesium 2.4 H (1.6-2.3) mg/dL Alkaline Phosphatase 31 L (38-126) U/L Total Protein 4.9 L (6.3-8.2) g/dL Albumin 2.9 L (3.5-5.0) g/dL 09/10/18 09/10/18 Range/Units 07:39 11:16 RBC (4.30-5.90) m/uL Hgb (13.0-17.5) gm/dL Hct (39.0-53.0) % Plt Count (150-450) k/uL Chloride (98-107) mmol/L Glucose (74-99) mg/dL POC Glucose (mg/dL) 120 H 251 H (75-99) mg/dL Calcium (8.4-10.2) mg/dL Magnesium (1.6-2.3) mg/dL Alkaline Phosphatase (38-126) U/L Total Protein (6.3-8.2) g/dL Albumin (3.5-5.0) g/dL Assessment and Plan Assessment: #1 Coronary artery disease with 99% stenosis involving the ostial portion of the left anterior descending artery, status post 2 vessel bypass grafting, with DAVE to LAD, and SVG to the diagonal branch, postop day #2 #2 Routine postoperative ventilator management #3 Postop blood loss anemia, an expected outcome of bypass surgery #4 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 #5 Diabetes mellitus. #6 Osteoarthritis. #7 Sleep apnea. #8 Remote history of chronic tobacco dependence. #9 postoperative atelectasis, expected after his CABG. Recommendation: Continue present supportive care measures including oxygen, bronchodilators, incentive spirometry, continue cardiac meds including aspirin statins and Plavix beta blockers. He was also placed on metoprolol 50 mg twice a day. Patient is back on Xarelto, activity will be increased as tolerated. GI and DVT prophylaxis, encourage deep coughing and deep breathing, continue to monitor labs and chest x-ray on a daily basis, control pain, patient is not ready to be transferred out of the ICU at this point yet. We will continue to follow, drainage from chest tubes noted, not quite ready for removal at this point yet. Time with Patient: Less than 30
--- NOTE | 2018-09-10 13:31 | P.PN ---
Subjective Patient is doing reasonably well. He looks weak. He has a drop in hemoglobin from 11 to around 9 g/dL Blood pressure is stable he does of sinus tachycardia and increased doses of beta blockers Breath sounds are reduced bilaterally with no rhonchi no crackles Heart sounds source to tachycardic Extremities warm Impression Coronary heart disease status post coronary bypass grafting Plan Increase beta blockers today continue dual antiplatelet therapy and statins and diuresis Objective - Vital Signs Vital signs: Vital Signs Temp 99.9 F H 09/10/18 08:00 Pulse 93 09/10/18 13:00 Resp 25 H 09/10/18 13:00 BP 125/61 09/10/18 13:00 Pulse Ox 98 09/10/18 13:00 Intake & Output 09/09/18 09/10/18 09/10/18 18:59 06:59 18:59 Intake Total 964.509 365.430 120 Output Total 745 872 390 Balance 219.509 -506.570 -270 Weight 82.6 kg 92 kg Intake: IV 270 311 120 CO/CI 20 Lactated Ringers 1,000 ml 250 260 120 @ 20 mls/hr IV .Q24H [facility] Rx#:[id number] Pressure bag .9 51 Intake, IV Titration 34.509 54.430 Amount Insulin Regular 100 unit 34.509 54.430 In Sodium Chloride 0.9% 100 ml @ Per Protocol IV .Q0M [facility] Rx#:[id number] Oral 660 Output: Chest Tube Drainage 300 380 170 Bilateral Mediastinal 250 275 130 Left Lateral Chest 50 105 40 Urine 445 492 220 Other: Voiding Method Indwelling Catheter Indwelling Catheter Indwelling Catheter # Voids 0 0 ABP, PAP, CO, CI - Last Documented Arterial Blood Pressure 168/38 Pulmonary Artery Pressure 20/11 Cardiac Output 4.4 Cardiac Index 2.6 - Labs CBC & Chem 7: 09/10/18 05:00 09/10/18 05:00 Labs: Abnormal Lab Results - Last 24 Hours (Table) 09/09/18 09/09/18 09/09/18 Range/Units 14:04 16:36 18:05 RBC (4.30-5.90) m/uL Hgb (13.0-17.5) gm/dL Hct (39.0-53.0) % Plt Count (150-450) k/uL Chloride (98-107) mmol/L Glucose (74-99) mg/dL POC Glucose (mg/dL) 101 H 108 H 278 H (75-99) mg/dL Calcium (8.4-10.2) mg/dL Magnesium (1.6-2.3) mg/dL Alkaline Phosphatase (38-126) U/L Total Protein (6.3-8.2) g/dL Albumin (3.5-5.0) g/dL 09/09/18 09/09/18 09/09/18 Range/Units 19:07 20:01 21:49 RBC (4.30-5.90) m/uL Hgb (13.0-17.5) gm/dL Hct (39.0-53.0) % Plt Count (150-450) k/uL Chloride (98-107) mmol/L Glucose (74-99) mg/dL POC Glucose (mg/dL) 202 H 151 H 54 L (75-99) mg/dL Calcium (8.4-10.2) mg/dL Magnesium (1.6-2.3) mg/dL Alkaline Phosphatase (38-126) U/L Total Protein (6.3-8.2) g/dL Albumin (3.5-5.0) g/dL 09/09/18 09/09/18 09/09/18 Range/Units 21:51 21:52 22:05 RBC (4.30-5.90) m/uL Hgb (13.0-17.5) gm/dL Hct (39.0-53.0) % Plt Count (150-450) k/uL Chloride (98-107) mmol/L Glucose (74-99) mg/dL POC Glucose (mg/dL) 57 L 67 L 59 L (75-99) mg/dL Calcium (8.4-10.2) mg/dL Magnesium (1.6-2.3) mg/dL Alkaline Phosphatase (38-126) U/L Total Protein (6.3-8.2) g/dL Albumin (3.5-5.0) g/dL 09/09/18 09/09/18 09/09/18 Range/Units 22:07 22:23 23:13 RBC (4.30-5.90) m/uL Hgb (13.0-17.5) gm/dL Hct (39.0-53.0) % Plt Count (150-450) k/uL Chloride (98-107) mmol/L Glucose (74-99) mg/dL POC Glucose (mg/dL) 63 L 219 H 167 H (75-99) mg/dL Calcium (8.4-10.2) mg/dL Magnesium (1.6-2.3) mg/dL Alkaline Phosphatase (38-126) U/L Total Protein (6.3-8.2) g/dL Albumin (3.5-5.0) g/dL 09/10/18 09/10/18 09/10/18 Range/Units 00:20 01:44 03:04 RBC (4.30-5.90) m/uL Hgb (13.0-17.5) gm/dL Hct (39.0-53.0) % Plt Count (150-450) k/uL Chloride (98-107) mmol/L Glucose (74-99) mg/dL POC Glucose (mg/dL) 148 H 122 H 122 H (75-99) mg/dL Calcium (8.4-10.2) mg/dL Magnesium (1.6-2.3) mg/dL Alkaline Phosphatase (38-126) U/L Total Protein (6.3-8.2) g/dL Albumin (3.5-5.0) g/dL 09/10/18 09/10/18 09/10/18 Range/Units 03:58 05:00 05:00 RBC 2.92 L (4.30-5.90) m/uL Hgb 9.1 L D (13.0-17.5) gm/dL Hct 27.8 L (39.0-53.0) % Plt Count 115 L (150-450) k/uL Chloride 109 H (98-107) mmol/L Glucose 110 H (74-99) mg/dL POC Glucose (mg/dL) 103 H (75-99) mg/dL Calcium 7.7 L (8.4-10.2) mg/dL Magnesium 2.4 H (1.6-2.3) mg/dL Alkaline Phosphatase 31 L (38-126) U/L Total Protein 4.9 L (6.3-8.2) g/dL Albumin 2.9 L (3.5-5.0) g/dL 09/10/18 09/10/18 Range/Units 07:39 11:16 RBC (4.30-5.90) m/uL Hgb (13.0-17.5) gm/dL Hct (39.0-53.0) % Plt Count (150-450) k/uL Chloride (98-107) mmol/L Glucose (74-99) mg/dL POC Glucose (mg/dL) 120 H 251 H (75-99) mg/dL Calcium (8.4-10.2) mg/dL Magnesium (1.6-2.3) mg/dL Alkaline Phosphatase (38-126) U/L Total Protein (6.3-8.2) g/dL Albumin (3.5-5.0) g/dL
[2018-09-10] MEDS: INSULN ASP PRT/INSULIN ASPART 100 UNIT/ML 10 ML VIAL SQ SCH (14:39)
[2018-09-10] MEDS: ALBUMIN HUMAN 5% 250 ML in EMPTY BAG 1 BAG IVPB PRN (14:58)
--- NOTE | 2018-09-10 16:41 | P.CONS ---
History of Present Illness - Chief Complaint Cardiac debility - History of Present Illness I had the opportunity to see patient for inpatient rehab consultation with regard to cardiac debility. He was admitted to [facility] September 04 with chest pain. Underwent testing and saphenous mapping and September 08 underwent 2 vessel coronary bypass. Seen in ICU by Dr. Mitchell. Chest x-rays followed. OT reports minimal assistance for upper dressing and moderate assistance for lower dressing , bathing, toileting. Minimal moderate assistance for functional mobility. PT prescribed. Previous functional history as elicited from patient: 77 showed right-handed white male who is lives and 2 floor home with . Both retired. does the cooking and laundry. Both drive. Patient independent with standing shower. Uses standard cane for gait and cold weather days. History smoking remote past. Doesn't smoke or drink currently. Dr. Perry is regular doctor. Family history of father with peripheral vascular disease and mother with blood clots. Review of Systems Review of systems: ENT: Denies sneezes or discharge. Eyes: Denies discharge or photophobia. Cardiac: Very mild sternal discomfort. Pulmonary: Mild shortness of breath. Gastrointestinal: Denies nausea, emesis, constipation, diarrhea. Genitourinary: Denies discharge or frequency. Musculoskeletal: Denies muscle or bone aches. Neurologic: Generalized weakness. Endocrine: Denies shakes or sweats. Oncology: Denies cancers. Dermatologic: Denies rash, itching, pruritus. ALLERGY/immunology: Denies sneezes, rashes. Past Medical History Past Medical History: Coronary Artery Disease (CAD), Cancer, Diabetes Mellitus, Deep Vein Thrombosis (DVT), Osteoarthritis (OA), Sleep Apnea/CPAP/BIPAP Additional Past Medical History / Comment(s): hx basal cell skin cancer, bone spurs in lt shoulder History of Any Multi-Drug Resistant Organisms: None Reported Past Surgical History: Orthopedic Surgery Additional Past Surgical History / Comment(s): Rotator Cuff Surgery. left foot surgery. bilateral cataract surgery. gum surgery. hx. of removal of 3 fungal toenails Past Anesthesia/Blood Transfusion Reactions: No Reported Reaction Past Psychological History: No Psychological Hx Reported Smoking Status: Former smoker Past Alcohol Use History: None Reported Additional Past Alcohol Use History / Comment(s): smoker 20 years 1ppd quit age 50 Past Drug Use History: None Reported - Past Family History Mother Family Medical History: No Reported History Additional Family Medical History / Comment(s): Mother of a "blood clot" Father Family Medical History: Coronary Artery Disease (CAD) Medications and Allergies Home Medications Medication Instructions Recorded Confirmed Type Rivaroxaban [Xarelto] 20 mg PO AC-LUNCH 03/27/14 09/02/18 History metFORMIN HCL 500 mg PO BID 12/11/14 09/02/18 History Artificial Tears-Hypromellose 1 - 2 drops BOTH EYES DAILY PRN 09/02/18 09/02/18 History [Artificial Tear Drops] Aspirin EC [Ecotrin Low Dose] 81 mg PO AC-LUNCH 09/02/18 09/02/18 History Allergies Allergy/AdvReac Type Severity Reaction Status Date / Time codeine AdvReac Nausea & Verified 09/02/18 16:44 Vomiting Physical Exam Vitals: Vital Signs Temp Pulse Resp BP Pulse Ox 09/10/18 15:00 80 20 108/54 98 09/10/18 14:00 82 25 H 112/45 97 09/10/18 13:00 93 25 H 125/61 98 09/10/18 12:00 92 16 118/56 92 L 09/10/18 11:30 88 09/10/18 11:14 86 09/10/18 11:00 86 17 119/53 96 09/10/18 10:00 81 28 H 109/46 98 09/10/18 09:00 85 20 130/55 96 09/10/18 08:00 99.9 F H 117 H 16 148/47 96 09/10/18 07:34 100 09/10/18 07:22 96 09/10/18 07:00 86 18 97 09/10/18 06:00 82 55 H 123/60 97 09/10/18 05:00 92 16 123/52 97 09/10/18 04:00 98.2 F 88 12 100/45 97 09/10/18 03:00 78 16 100/44 97 09/10/18 02:00 79 17 98/49 98 09/10/18 01:00 76 14 119/58 98 09/10/18 00:00 97.8 F 79 19 108/46 100 09/09/18 23:35 89 15 108/46 99 09/09/18 23:00 78 20 100/56 100 09/09/18 22:00 82 20 117/49 96 09/09/18 21:00 82 22 112/40 99 09/09/18 20:00 77 14 110/47 98 09/09/18 19:18 96 09/09/18 19:00 83 16 120/51 98 09/09/18 18:00 98 9 L 103/45 09/09/18 17:00 93 11 L 95/46 Intake and Output 09/10/18 09/10/18 09/10/18 06:59 14:59 22:59 Intake Total 239.496 140 20 Output Total 572 660 20 Balance -332.504 -520 0 Intake: IV 213 140 20 Lactated Ringers 1,000 ml 180 140 20 @ 20 mls/hr IV .Q24H [facility] Rx#:[id number] Pressure bag .9 33 Intake, IV Titration 26.496 Amount Insulin Regular 100 unit 26.496 In Sodium Chloride 0.9% 100 ml @ Per Protocol IV .Q0M [facility] Rx#:[id number] Output: Chest Tube Drainage 260 370 Bilateral Mediastinal 185 240 Left Lateral Chest 75 130 Urine 312 290 20 Other: Voiding Method Indwelling Catheter Indwelling Catheter # Voids 0 Weight 92 kg ABP, PAP, CO, CI - Last 8 Hours Cardiac Output 4.4 Cardiac Output 4.4 Cardiac Output 4.4 Cardiac Output 4.4 Cardiac Output 4.4 Skin: Atrophic, intact. General: Medium build and comfortable appearance. Head: Normocephalic, atraumatic. Eyes: Symmetric. Pupils equal round. Ears: Symmetric. Hearing within normal limits. Mouth: Clear. Neck: Supple. Carotid without bruit. Cardiac: Regular rate and rhythm. Tenotomy clean and dressed. Heart hugger. Lungs: Clear anteriorly and posteriorly. Abdomen: Soft active nontender. Extremities: Normal tone. Neurological: Mental status: Alert, cooperative, pleasant. Fatigued affect. Cranial nerves: Symmetric facial tone and trapezius. Motor: Normal strength and isolation all 4 limbs. Sensation: Intact throughout. DTRs: Symmetric and equal throughout. Mobility: Sits with physical assistance. Results CBC & Chem 7: 09/10/18 05:00 09/10/18 05:00 Labs: Abnormal Lab Results - Last 24 Hours (Table) 09/09/18 09/09/18 09/09/18 Range/Units 16:36 18:05 19:07 RBC (4.30-5.90) m/uL Hgb (13.0-17.5) gm/dL Hct (39.0-53.0) % Plt Count (150-450) k/uL Chloride (98-107) mmol/L Glucose (74-99) mg/dL POC Glucose (mg/dL) 108 H 278 H 202 H (75-99) mg/dL Calcium (8.4-10.2) mg/dL Magnesium (1.6-2.3) mg/dL Alkaline Phosphatase (38-126) U/L Total Protein (6.3-8.2) g/dL Albumin (3.5-5.0) g/dL 09/09/18 09/09/18 09/09/18 Range/Units 20:01 21:49 21:51 RBC (4.30-5.90) m/uL Hgb (13.0-17.5) gm/dL Hct (39.0-53.0) % Plt Count (150-450) k/uL Chloride (98-107) mmol/L Glucose (74-99) mg/dL POC Glucose (mg/dL) 151 H 54 L 57 L (75-99) mg/dL Calcium (8.4-10.2) mg/dL Magnesium (1.6-2.3) mg/dL Alkaline Phosphatase (38-126) U/L Total Protein (6.3-8.2) g/dL Albumin (3.5-5.0) g/dL 09/09/18 09/09/18 09/09/18 Range/Units 21:52 22:05 22:07 RBC (4.30-5.90) m/uL Hgb (13.0-17.5) gm/dL Hct (39.0-53.0) % Plt Count (150-450) k/uL Chloride (98-107) mmol/L Glucose (74-99) mg/dL POC Glucose (mg/dL) 67 L 59 L 63 L (75-99) mg/dL Calcium (8.4-10.2) mg/dL Magnesium (1.6-2.3) mg/dL Alkaline Phosphatase (38-126) U/L Total Protein (6.3-8.2) g/dL Albumin (3.5-5.0) g/dL 09/09/18 09/09/18 09/10/18 Range/Units 22:23 23:13 00:20 RBC (4.30-5.90) m/uL Hgb (13.0-17.5) gm/dL Hct (39.0-53.0) % Plt Count (150-450) k/uL Chloride (98-107) mmol/L Glucose (74-99) mg/dL POC Glucose (mg/dL) 219 H 167 H 148 H (75-99) mg/dL Calcium (8.4-10.2) mg/dL Magnesium (1.6-2.3) mg/dL Alkaline Phosphatase (38-126) U/L Total Protein (6.3-8.2) g/dL Albumin (3.5-5.0) g/dL 09/10/18 09/10/18 09/10/18 Range/Units 01:44 03:04 03:58 RBC (4.30-5.90) m/uL Hgb (13.0-17.5) gm/dL Hct (39.0-53.0) % Plt Count (150-450) k/uL Chloride (98-107) mmol/L Glucose (74-99) mg/dL POC Glucose (mg/dL) 122 H 122 H 103 H (75-99) mg/dL Calcium (8.4-10.2) mg/dL Magnesium (1.6-2.3) mg/dL Alkaline Phosphatase (38-126) U/L Total Protein (6.3-8.2) g/dL Albumin (3.5-5.0) g/dL 09/10/18 09/10/18 09/10/18 Range/Units 05:00 05:00 07:39 RBC 2.92 L (4.30-5.90) m/uL Hgb 9.1 L D (13.0-17.5) gm/dL Hct 27.8 L (39.0-53.0) % Plt Count 115 L (150-450) k/uL Chloride 109 H (98-107) mmol/L Glucose 110 H (74-99) mg/dL POC Glucose (mg/dL) 120 H (75-99) mg/dL Calcium 7.7 L (8.4-10.2) mg/dL Magnesium 2.4 H (1.6-2.3) mg/dL Alkaline Phosphatase 31 L (38-126) U/L Total Protein 4.9 L (6.3-8.2) g/dL Albumin 2.9 L (3.5-5.0) g/dL 09/10/18 Range/Units 11:16 RBC (4.30-5.90) m/uL Hgb (13.0-17.5) gm/dL Hct (39.0-53.0) % Plt Count (150-450) k/uL Chloride (98-107) mmol/L Glucose (74-99) mg/dL POC Glucose (mg/dL) 251 H (75-99) mg/dL Calcium (8.4-10.2) mg/dL Magnesium (1.6-2.3) mg/dL Alkaline Phosphatase (38-126) U/L Total Protein (6.3-8.2) g/dL Albumin (3.5-5.0) g/dL Assessment and Plan (1) Unstable angina pectoris Current Visit: Yes Status: Acute Code(s): I20.0 - UNSTABLE ANGINA SNOMED Code(s): 6851445 Plan: Impression: 1. Cardiac debility. 2. Unstable angina. Status post 2 vessel cord bypass. 3. Diabetes. 4. History of DVT. 5. Osteoarthritis. 6. Sleep apnea current CPAP. 7. History of cancer. Comments and plan: At this time OT ongoing PT prescribed. Follow therapies with yourself for possible need and benefit of inpatient rehab. We'll review case, Thursday a.m. Patient advised.
[2018-09-10 17:02] LABS: Glucose,Whole Blood 170 mg/dL (75-99)
[2018-09-10] MEDS: INSULIN ASPART 100 UNIT/ML 1 ML 10 ML VIAL SQ SCH ×3 (18:08→21:48)
--- NOTE | 2018-09-10 18:38 | P.PN ---
Subjective Progress Note Date: 09/09/18 Progress note being dictated for Dr. Hernandez. Interval history: This is a 77-year-old gentleman admitted with unstable angina , CAD, status post cardiac catheterization with 90% LAD stenosis. Evaluated by cardiothoracic surgery, scheduled for CABG on Thursday. Maintained on heparin drip. Reports midsternal chest pain earlier this morning, currently no chest pain palpitations no shortness of breath. Incentive spirometer up to 3800. Maintaining O2 sats of 98% on room air. Afebrile. 09/07/18 sitting up in chair, no further chest pain reported. Denies lightheadedness dizziness or focal deficits. IS up to 4000. Ambulating in hallway, tolerating exertion well. CABG scheduled for tomorrow. 09/08/2018 recently returned to the ICU status post CABG, DAVE to the LAD and saphenous vein graft to the diagonal. Maintain on mechanical ventilation, FiO2 50%/5 of PEEP. Cardiac output 12.9, index 7.5. PA pressures 22/13. Maintained on lactated Ringer's, diprovan, nitroglycerin, cleviprex, insulin drip. Telemetry sinus rhythm. 09/09/2018 extubated last night. Maintaining O2 sats in the 90s on 2 L nasal cannula. Incentive spirometer up to 1200. Diet intake fair. Complains of generalized achiness. Chest x-ray reporting bibasilar atelectasis Review of systems: CONSTITUTIONAL: No fever, no malaise, positive fatigue. HEENT: No recent visual problems or hearing problems. Denied any sore throat. CARDIOVASCULAR: No chest pain, orthopnea, PND, no palpitations, no syncope. PULMONARY: No shortness of breath, no cough, no hemoptysis. GASTROINTESTINAL: No diarrhea, positive nausea, no vomiting, no abdominal pain. Normoactive bowel sounds. NEUROLOGICAL: No headaches, generalized weakness, no numbness. HEMATOLOGICAL: Denies any bleeding or petechiae. GENITOURINARY: Denies any burning micturition, frequency, or urgency. MUSCULOSKELETAL/RHEUMATOLOGICAL: Generalized muscle aches and pain. ENDOCRINE: Denies any polyuria or polydipsia. PSYCHIATRIC: No anxiety, no depression The rest of the 14 point review of systems is negative Active Medications Hydrocodone Bitart/Acetaminophen ([place] 5-325) 2 each PO Q4HR PRN PRN Reason: Severe Pain Hydrocodone Bitart/Acetaminophen ([place] 5-325) 1 each PO Q4HR PRN PRN Reason: Moderate Pain Albuterol/Ipratropium (Duoneb 0.5 Mg-3 Mg/3 Ml Soln) 3 ml INHALATION RT-Q2H PRN PRN Reason: Shortness Of Breath Or Wheezing Albuterol/Ipratropium (Duoneb 0.5 Mg-3 Mg/3 Ml Soln) 3 ml INHALATION RT-QID [facility] Last Admin: 09/09/18 19:17 Dose: Not Given Artificial Tears (Artificial Tear Drops) 2 drops BOTH EYES DAILY PRN PRN Reason: Dry Eye(s) Aspirin (Aspirin) 325 mg PO DAILY [facility] Last Admin: 09/09/18 08:03 Dose: 325 mg Atorvastatin Calcium (Lipitor) 80 mg PO DAILY [facility] Last Admin: 09/09/18 08:03 Dose: 80 mg Benzocaine/Menthol (Cepacol Lozenge) 1 each MUCOUS MEM Q2H PRN PRN Reason: Sore Throat Bisacodyl (Dulcolax) 10 mg RECTAL DAILY PRN PRN Reason: Constipation Clopidogrel Bisulfate (Plavix) 75 mg PO DAILY [facility] Last Admin: 09/09/18 08:03 Dose: 75 mg Heparin Sodium (Porcine) (Heparin) 5,000 unit SQ Q8HR [facility] Last Admin: 09/09/18 16:29 Dose: 5,000 unit Hydralazine HCl (Apresoline) 10 mg IVP Q4HR PRN PRN Reason: Blood Pressure - High Last Admin: 09/08/18 23:52 Dose: 10 mg Hydralazine HCl (Apresoline) 20 mg IVP Q4HR PRN PRN Reason: Blood Pressure - High Albumin Human 250 ml/ IV (Solution) 250 mls @ 250 mls/hr IVPB Q1HR PRN PRN Reason: For Volume Stop: 09/10/18 13:58 Last Admin: 09/09/18 05:51 Dose: 250 mls/hr Amiodarone HCl 150 mg/ (Dextrose/Water) 103 mls @ 618 mls/hr IV .Q10M PRN; Protocol PRN Reason: Per protocol Amiodarone HCl 450 mg/ (Dextrose/Water) 259 mls @ 34.53 mls/hr IV .Q7H31M PRN; Protocol PRN Reason: Per Protocol Clevidipine 25 mg/ IV Solution 50 mls @ 2 mls/hr IV .Q24H [facility]; Protocol Last Titration: 09/09/18 06:14 Dose: 4 mg/hr, 8 mls/hr Insulin Human Regular 100 unit (/ Sodium Chloride) 101 mls @ 0 mls/hr IV .Q0M [facility]; Protocol Last Titration: 09/09/18 22:26 Dose: 6.5 units/hr, 6.56 mls/hr Lactated Ringer's (Lactated Ringers) 1,000 mls @ 20 mls/hr IV .Q24H [facility] Last Admin: 09/09/18 11:05 Dose: 20 mls/hr Ketorolac Tromethamine (Toradol) 15 mg IVP Q6HR [facility] Stop: 09/14/18 06:46 Last Admin: 09/09/18 20:44 Dose: Not Given Magnesium Hydroxide (Milk Of Magnesia) 2,400 mg PO BID PRN PRN Reason: Constipation Metoclopramide HCl (Reglan) 10 mg IVP Q4H PRN PRN Reason: Nausea And Vomiting Metoprolol Tartrate (Lopressor) 25 mg PO BID [facility] Last Admin: 09/09/18 20:47 Dose: 25 mg Miscellaneous Information (Magnesium Per Protocol) 1 each MISCELLANE DAILY PRN ; Protocol PRN Reason: Per Protocol Miscellaneous Information (Phosphorus Per Protocol) 1 each MISCELLANE DAILY PRN ; Protocol PRN Reason: Per Protocol Miscellaneous Information (Potassium Per Protocol) 1 each MISCELLANE DAILY PRN ; Protocol PRN Reason: Per Protocol Ondansetron HCl (Zofran) 4 mg IVP Q6HR PRN PRN Reason: Nausea And Vomiting Pantoprazole Sodium (Protonix) 40 mg PO AC-BRKFST [facility] Senna/Docusate Sodium (Senokot-S) 2 each PO HS [facility] Last Admin: 09/09/18 20:47 Dose: 2 each Sodium Chloride (Saline Flush) 10 ml IV BID [facility] Last Admin: 09/09/18 20:47 Dose: 10 ml Objective - Vital Signs Vital signs: Vital Signs Temp 98.4 F 09/09/18 12:30 Pulse 82 09/09/18 22:00 Resp 20 09/09/18 22:00 BP 117/49 09/09/18 22:00 Pulse Ox 96 09/09/18 22:00 Intake & Output 09/09/18 09/09/18 09/10/18 06:59 18:59 06:59 Intake Total 1220.449 964.509 125.934 Output Total 1385 745 300 Balance -164.551 219.509 -174.066 Weight 82.6 kg 82.6 kg Intake: IV 837.0 270 98 CO/CI 120 20 Lactated Ringers 1,000 ml 600 250 80 @ 20 mls/hr IV .Q24H [facility] Rx#:[id number] Nitroglycerin-D5w Pmx 50 18.0 mg In Dextrose/Water 1 250ml.bag @ 5 MCG/MIN 1.5 mls/hr IV .Q24H [facility] Rx#: [id number] Pressure bag .9 99 18 Intake, IV Titration 383.449 34.509 27.934 Amount Clevidipine Butyrate 25 302.666 mg In Empty Bag 1 bag @ 1 MG/HR 2 mls/hr IV .Q24H [facility] Rx#:[id number] Insulin Regular 100 unit 53.310 34.509 27.934 In Sodium Chloride 0.9% 100 ml @ Per Protocol IV .Q0M [facility] Rx#:[id number] Propofol 1,000 mg In 27.473 Empty Bag 1 bag @ Titrate IV .Q0M [facility] Rx#: [id number] Oral 660 Output: Chest Tube Drainage 610 300 120 Bilateral Mediastinal 460 250 90 Left Lateral Chest 150 50 30 Urine 775 445 180 Other: Voiding Method Indwelling Catheter Indwelling Catheter Indwelling Catheter # Voids 0 ABP, PAP, CO, CI - Last Documented Arterial Blood Pressure 168/38 Pulmonary Artery Pressure 20/11 Cardiac Output 4.4 Cardiac Index 2.6 - Exam PHYSICAL EXAM: VITAL SIGNS: As above GENERAL: Sitting up in chair, no acute distress HEENT: Conjunctivae normal. eyes normal. Oral mucosa moist NECK: Supple, No JVD. No thyroid enlargement. CARDIOVASCULAR: Regular S1 and S2, No murmurs, rubs or gallops. RESPIRATION: Symmetrical expansion, no rhonchi , crackles, or wheezes 2 mediastinal and one left pleural chest tube present ABDOMEN: Soft, nontender, nondistended, positive bowel sounds. No rigidity LEGS: No edema. no clubbing, SCDs on bilateral lower extremities NERVOUS SYSTEM: Cranial nerves II through XII grossly intact, moves all 4 extremities. No focal deficits Skin: no rash - Labs CBC & Chem 7: 09/10/18 05:00 09/10/18 05:00 Labs: Abnormal Lab Results - Last 24 Hours (Table) 09/07/18 09/08/18 09/08/18 Range/Units 06:15 22:54 22:57 WBC (3.8-10.6) k/uL RBC (4.30-5.90) m/uL Hgb (13.0-17.5) gm/dL Hct (39.0-53.0) % Neutrophils # (1.3-7.7) k/uL Lymphocytes # (1.0-4.8) k/uL ABG pO2 149 H (83-108) mmHg ABG Total CO2 25 H (19-24) mmol/L ABG O2 Saturation 100.0 H (94-97) % Chloride (98-107) mmol/L Glucose (74-99) mg/dL POC Glucose (mg/dL) 155 H (75-99) mg/dL Calcium (8.4-10.2) mg/dL Alkaline Phosphatase (38-126) U/L Total Protein (6.3-8.2) g/dL Albumin (3.5-5.0) g/dL Crossmatch See Detail 09/08/18 09/09/18 09/09/18 Range/Units 23:55 01:07 01:59 WBC (3.8-10.6) k/uL RBC (4.30-5.90) m/uL Hgb (13.0-17.5) gm/dL Hct (39.0-53.0) % Neutrophils # (1.3-7.7) k/uL Lymphocytes # (1.0-4.8) k/uL ABG pO2 (83-108) mmHg ABG Total CO2 (19-24) mmol/L ABG O2 Saturation (94-97) % Chloride (98-107) mmol/L Glucose (74-99) mg/dL POC Glucose (mg/dL) 143 H 135 H 129 H (75-99) mg/dL Calcium (8.4-10.2) mg/dL Alkaline Phosphatase (38-126) U/L Total Protein (6.3-8.2) g/dL Albumin (3.5-5.0) g/dL Crossmatch 09/09/18 09/09/18 09/09/18 Range/Units 03:01 03:59 04:00 WBC 11.4 H (3.8-10.6) k/uL RBC 3.37 L (4.30-5.90) m/uL Hgb 11.0 L (13.0-17.5) gm/dL Hct 31.5 L (39.0-53.0) % Neutrophils # 9.9 H (1.3-7.7) k/uL Lymphocytes # 0.7 L (1.0-4.8) k/uL ABG pO2 (83-108) mmHg ABG Total CO2 (19-24) mmol/L ABG O2 Saturation (94-97) % Chloride (98-107) mmol/L Glucose (74-99) mg/dL POC Glucose (mg/dL) 123 H 115 H (75-99) mg/dL Calcium (8.4-10.2) mg/dL Alkaline Phosphatase (38-126) U/L Total Protein (6.3-8.2) g/dL Albumin (3.5-5.0) g/dL Crossmatch 09/09/18 09/09/18 09/09/18 Range/Units 04:00 04:53 06:08 WBC (3.8-10.6) k/uL RBC (4.30-5.90) m/uL Hgb (13.0-17.5) gm/dL Hct (39.0-53.0) % Neutrophils # (1.3-7.7) k/uL Lymphocytes # (1.0-4.8) k/uL ABG pO2 (83-108) mmHg ABG Total CO2 (19-24) mmol/L ABG O2 Saturation (94-97) % Chloride 111 H (98-107) mmol/L Glucose 117 H (74-99) mg/dL POC Glucose (mg/dL) 105 H 169 H (75-99) mg/dL Calcium 7.9 L (8.4-10.2) mg/dL Alkaline Phosphatase 31 L (38-126) U/L Total Protein 5.0 L (6.3-8.2) g/dL Albumin 2.9 L (3.5-5.0) g/dL Crossmatch 09/09/18 09/09/18 09/09/18 Range/Units 06:53 08:11 09:52 WBC (3.8-10.6) k/uL RBC (4.30-5.90) m/uL Hgb (13.0-17.5) gm/dL Hct (39.0-53.0) % Neutrophils # (1.3-7.7) k/uL Lymphocytes # (1.0-4.8) k/uL ABG pO2 (83-108) mmHg ABG Total CO2 (19-24) mmol/L ABG O2 Saturation (94-97) % Chloride (98-107) mmol/L Glucose (74-99) mg/dL POC Glucose (mg/dL) 167 H 73 L 170 H (75-99) mg/dL Calcium (8.4-10.2) mg/dL Alkaline Phosphatase (38-126) U/L Total Protein (6.3-8.2) g/dL Albumin (3.5-5.0) g/dL Crossmatch 09/09/18 09/09/18 09/09/18 Range/Units 11:02 12:18 14:04 WBC (3.8-10.6) k/uL RBC (4.30-5.90) m/uL Hgb (13.0-17.5) gm/dL Hct (39.0-53.0) % Neutrophils # (1.3-7.7) k/uL Lymphocytes # (1.0-4.8) k/uL ABG pO2 (83-108) mmHg ABG Total CO2 (19-24) mmol/L ABG O2 Saturation (94-97) % Chloride (98-107) mmol/L Glucose (74-99) mg/dL POC Glucose (mg/dL) 148 H 119 H 101 H (75-99) mg/dL Calcium (8.4-10.2) mg/dL Alkaline Phosphatase (38-126) U/L Total Protein (6.3-8.2) g/dL Albumin (3.5-5.0) g/dL Crossmatch 09/09/18 09/09/1819 Range/Units 16:36 18:05 19:07 WBC (3.8-10.6) k/uL RBC (4.30-5.90) m/uL Hgb (13.0-17.5) gm/dL Hct (39.0-53.0) % Neutrophils # (1.3-7.7) k/uL Lymphocytes # (1.0-4.8) k/uL ABG pO2 (83-108) mmHg ABG Total CO2 (19-24) mmol/L ABG O2 Saturation (94-97) % Chloride (98-107) mmol/L Glucose (74-99) mg/dL POC Glucose (mg/dL) 108 H 278 H 202 H (75-99) mg/dL Calcium (8.4-10.2) mg/dL Alkaline Phosphatase (38-126) U/L Total Protein (6.3-8.2) g/dL Albumin (3.5-5.0) g/dL Crossmatch 09/09/18 09/09/18 09/09/18 Range/Units 20:01 21:49 21:51 WBC (3.8-10.6) k/uL RBC (4.30-5.90) m/uL Hgb (13.0-17.5) gm/dL Hct (39.0-53.0) % Neutrophils # (1.3-7.7) k/uL Lymphocytes # (1.0-4.8) k/uL ABG pO2 (83-108) mmHg ABG Total CO2 (19-24) mmol/L ABG O2 Saturation (94-97) % Chloride (98-107) mmol/L Glucose (74-99) mg/dL POC Glucose (mg/dL) 151 H 54 L 57 L (75-99) mg/dL Calcium (8.4-10.2) mg/dL Alkaline Phosphatase (38-126) U/L Total Protein (6.3-8.2) g/dL Albumin (3.5-5.0) g/dL Crossmatch 09/09/18 09/09/18 09/09/18 Range/Units 21:52 22:05 22:07 WBC (3.8-10.6) k/uL RBC (4.30-5.90) m/uL Hgb (13.0-17.5) gm/dL Hct (39.0-53.0) % Neutrophils # (1.3-7.7) k/uL Lymphocytes # (1.0-4.8) k/uL ABG pO2 (83-108) mmHg ABG Total CO2 (19-24) mmol/L ABG O2 Saturation (94-97) % Chloride (98-107) mmol/L Glucose (74-99) mg/dL POC Glucose (mg/dL) 67 L 59 L 63 L (75-99) mg/dL Calcium (8.4-10.2) mg/dL Alkaline Phosphatase (38-126) U/L Total Protein (6.3-8.2) g/dL Albumin (3.5-5.0) g/dL Crossmatch 09/09/18 Range/Units 22:23 WBC (3.8-10.6) k/uL RBC (4.30-5.90) m/uL Hgb (13.0-17.5) gm/dL Hct (39.0-53.0) % Neutrophils # (1.3-7.7) k/uL Lymphocytes # (1.0-4.8) k/uL ABG pO2 (83-108) mmHg ABG Total CO2 (19-24) mmol/L ABG O2 Saturation (94-97) % Chloride (98-107) mmol/L Glucose (74-99) mg/dL POC Glucose (mg/dL) 219 H (75-99) mg/dL Calcium (8.4-10.2) mg/dL Alkaline Phosphatase (38-126) U/L Total Protein (6.3-8.2) g/dL Albumin (3.5-5.0) g/dL Crossmatch Assessment and Plan Assessment: -Unstable angina, CAD, status post cardiac catheterization with 90% LAD stenosis. Status post CABG. -Acute respiratory failure, status post mechanical ventilator-dependence, expected outcome of CABG -Postop blood loss anemia, expected outcome of CABG -Sleep apnea -History of DVT -Remote history of nicotine dependence -Diabetes mellitus Plan: Continue on current medication regime ,monitoring and symptomatic treatment. Aggressive pulmonary toileting with incentive spirometer reinforced. Pain management. Diet intake fair, continue with insulin drip, close monitoring of Accu-Cheks .Wean off of insulin drip tomorrow. Further recommendations to follow. The impression and plan of care has been dictated as directed. : I performed a history and examination of this patient, discussed the same with the dictator. I agree with the dictator's note ,documented as a scribe. Any additional findings or plans will be noted.
--- NOTE | 2018-09-10 19:20 | P.PN ---
Subjective Progress Note Date: 09/10/18 Progress note being dictated for Dr. Hernandez. Interval history: This is a 77-year-old gentleman admitted with unstable angina , CAD, status post cardiac catheterization with 90% LAD stenosis. Evaluated by cardiothoracic surgery, scheduled for CABG on Thursday. Maintained on heparin drip. Reports midsternal chest pain earlier this morning, currently no chest pain palpitations no shortness of breath. Incentive spirometer up to 3800. Maintaining O2 sats of 98% on room air. Afebrile. 09/07/18 sitting up in chair, no further chest pain reported. Denies lightheadedness dizziness or focal deficits. IS up to 4000. Ambulating in hallway, tolerating exertion well. CABG scheduled for tomorrow. 09/08/2018 recently returned to the ICU status post CABG, DAVE to the LAD and saphenous vein graft to the diagonal. Maintain on mechanical ventilation, FiO2 50%/5 of PEEP. Cardiac output 12.9, index 7.5. PA pressures 22/13. Maintained on lactated Ringer's, diprovan, nitroglycerin, cleviprex, insulin drip. Telemetry sinus rhythm. 09/09/2018 extubated last night. Maintaining O2 sats in the 90s on 2 L nasal cannula. Incentive spirometer up to 1200. Diet intake fair. Complains of generalized achiness. Chest x-ray reporting bibasilar atelectasis 09/10/2018 sitting up in chair, maintaining O2 sats in the high 90s on 2 L nasal cannula. Incentive spirometer up to 1000. Insulin drip has been off since earlier this morning. No flatus, no bowel movement. Cardiac output 4.4, cardiac index 2.6. Review of systems: CONSTITUTIONAL: No fever, no malaise, less fatigue. HEENT: No recent visual problems or hearing problems. Denied any sore throat. CARDIOVASCULAR: No chest pain, orthopnea, PND, no palpitations, no syncope. PULMONARY: No shortness of breath, no cough, no hemoptysis. GASTROINTESTINAL: No diarrhea, no nausea, no vomiting, no abdominal pain. Normoactive bowel sounds. NEUROLOGICAL: No headaches, improving generalized weakness, no numbness. HEMATOLOGICAL: Denies any bleeding or petechiae. GENITOURINARY: Denies any burning micturition, frequency, or urgency. MUSCULOSKELETAL/RHEUMATOLOGICAL: Improving Generalized muscle aches and pain. ENDOCRINE: Denies any polyuria or polydipsia. PSYCHIATRIC: No anxiety, no depression The rest of the 14 point review of systems is negative Active Medications Generic Name Dose Route Start Last Admin Trade Name Freq PRN Reason Stop Dose Admin Hydrocodone Bitart/Acetaminophen 2 each 09/09/18 14:02 09/10/18 14:42 Keymar 5-325 PO 2 each Q4HR PRN Administration Severe Pain Hydrocodone Bitart/Acetaminophen 1 each 09/09/18 14:02 09/10/18 04:46 Keymar 5-325 PO 1 each Q4HR PRN Administration Moderate Pain Albuterol/Ipratropium 3 ml 09/08/18 13:57 Duoneb 0.5 Mg-3 Mg/3 Ml Soln INHALATION RT-Q2H PRN Shortness Of Breath Or Wheezing Albuterol/Ipratropium 3 ml 09/09/18 08:00 09/10/18 17:30 Duoneb 0.5 Mg-3 Mg/3 Ml Soln INHALATION Not Given RT-QID [facility]I Artificial Tears 2 drops 09/03/18 15:04 Artificial Tear Drops BOTH EYES DAILY PRN Dry Eye(s) Aspirin 325 mg 09/09/18 09:00 09/10/18 07:49 Aspirin PO 325 mg DAILY CONI Administration Atorvastatin Calcium 80 mg 09/03/18 09:00 09/10/18 07:49 Lipitor PO 80 mg DAILY CONI Administration Bisacodyl 10 mg 09/09/18 14:03 Dulcolax RECTAL DAILY PRN Constipation Clopidogrel Bisulfate 75 mg 09/09/18 09:00 09/10/18 07:48 Plavix PO 75 mg DAILY [facility] Administration Heparin Sodium (Porcine) 5,000 unit 09/09/18 00:00 09/10/18 18:03 Heparin SQ 5,000 unit Q8HR [facility]I Administration Hydralazine HCl 10 mg 09/08/18 16:07 09/08/18 23:52 Apresoline IVP 10 mg Q4HR PRN Administration Blood Pressure - High Hydralazine HCl 20 mg 09/08/18 16:07 Apresoline IVP Q4HR PRN Blood Pressure - High Amiodarone HCl 150 mg/ 103 mls @ 618 mls/hr 09/08/18 13:57 Dextrose/Water IV .Q10M PRN Per protocol Protocol Amiodarone HCl 450 mg/ 259 mls @ 34.53 mls/hr 09/08/18 14:30 Dextrose/Water IV .Q7H31M PRN Per Protocol Protocol 1 MG/MIN Lactated Ringer's 1,000 mls @ 20 mls/hr 09/08/18 14:00 09/10/18 09:50 Lactated Ringers IV 20 mls/hr .Q24H [facility]I Administration Insulin Aspart 9 unit 09/10/18 17:30 09/10/18 18:08 Novolog 0.1 unit/kg (9 unit) 9 unit SQ Administration [facility] Insulin Aspart 0 unit 09/10/18 17:30 09/10/18 18:08 Novolog SQ 2 unit ACHS [facility] Administration Protocol Insulin Aspart 37 unit 09/10/18 13:30 09/10/18 14:39 Novolog Mix 70-30 Vial 0.4 unit/kg (37 unit) 37 unit SQ Administration -BRKT [facility] Ketorolac Tromethamine 15 mg 09/09/18 06:45 09/10/18 18:03 Toradol IVP 09/14/18 06:46 15 mg Q6HR [facility] Administration Magnesium Hydroxide 2,400 mg 09/09/18 14:03 Milk Of Magnesia PO BID PRN Constipation Metoclopramide HCl 10 mg 09/08/18 13:57 Reglan IVP Q4H PRN Nausea And Vomiting Metoprolol Tartrate 50 mg 09/10/18 09:00 09/10/18 08:57 Lopressor PO Not Given BID [facility] Miscellaneous Information 1 each 09/08/18 13:57 Magnesium Per Protocol MISCELLANE DAILY PRN Per Protocol Protocol Miscellaneous Information 1 each 09/08/18 13:57 Phosphorus Per Protocol MISCELLANE DAILY PRN Per Protocol Protocol Miscellaneous Information 1 each 09/08/18 13:57 Potassium Per Protocol MISCELLANE DAILY PRN Per Protocol Protocol Ondansetron HCl 4 mg 09/08/18 13:57 Zofran IVP Q6HR PRN Nausea And Vomiting Pantoprazole Sodium 40 mg 09/10/18 07:30 09/10/18 07:09 Protonix PO 40 mg [facility] Administration Senna/Docusate Sodium 2 each 09/09/18 21:00 09/09/18 20:47 Senokot-S PO 2 each HS [facility]I Administration Sodium Chloride 10 ml 09/08/18 21:00 09/10/18 07:49 Saline Flush IV 10 ml BID [facility]I Administration Objective - Vital Signs Vital signs: Vital Signs Temp 99.9 F H 09/10/18 08:00 Pulse 87 09/10/18 18:00 Resp 23 09/10/18 18:00 BP 118/50 09/10/18 18:00 Pulse Ox 98 09/10/18 18:00 Intake & Output 09/09/18 09/10/18 09/10/18 18:59 06:59 18:59 Intake Total 964.509 365.430 220 Output Total 745 872 810 Balance 219.509 -506.570 -590 Weight 82.6 kg 92 kg Intake: IV 270 311 220 CO/CI 20 Lactated Ringers 1,000 ml 250 260 220 @ 20 mls/hr IV .Q24H [facility] Rx#:[id number] Pressure bag .9 51 Intake, IV Titration 34.509 54.430 Amount Insulin Regular 100 unit 34.509 54.430 In Sodium Chloride 0.9% 100 ml @ Per Protocol IV .Q0M [facility]I Rx#:[id number] Oral 660 Output: Chest Tube Drainage 300 380 370 Bilateral Mediastinal 250 275 240 Left Lateral Chest 50 105 130 Urine 445 492 440 Other: Voiding Method Indwelling Catheter Indwelling Catheter Indwelling Catheter # Voids 0 0 ABP, PAP, CO, CI - Last Documented Arterial Blood Pressure 168/38 Pulmonary Artery Pressure 20/11 Cardiac Output 4.4 Cardiac Index 2.6 - Exam PHYSICAL EXAM: VITAL SIGNS: As above GENERAL: Sitting up in chair, no acute distress HEENT: Conjunctivae normal. eyes normal. Oral mucosa moist. NECK: Supple, No JVD. No thyroid enlargement. Right IJ Cordis present. CARDIOVASCULAR: Regular S1 and S2, No murmurs, rubs or gallops. RESPIRATION: Symmetrical expansion, respiratory effort normal. Bilateral bases diminished, no rhonchi , crackles, or wheezes .2 mediastinal and one left pleural chest tube present ABDOMEN: Soft, nontender, nondistended, positive bowel sounds. No rigidity LEGS: No edema. no clubbing, SCDs on bilateral lower extremities NERVOUS SYSTEM: Cranial nerves II through XII grossly intact, moves all 4 extremities. No focal deficits Skin: no rash - Labs CBC & Chem 7: 09/10/18 05:00 09/10/18 05:00 Labs: Abnormal Lab Results - Last 24 Hours (Table) 09/09/18 09/09/18 09/09/18 Range/Units 19:07 20:01 21:49 RBC (4.30-5.90) m/uL Hgb (13.0-17.5) gm/dL Hct (39.0-53.0) % Plt Count (150-450) k/uL Chloride (98-107) mmol/L Glucose (74-99) mg/dL POC Glucose (mg/dL) 202 H 151 H 54 L (75-99) mg/dL Calcium (8.4-10.2) mg/dL Magnesium (1.6-2.3) mg/dL Alkaline Phosphatase (38-126) U/L Total Protein (6.3-8.2) g/dL Albumin (3.5-5.0) g/dL 09/09/18 09/09/18 09/09/18 Range/Units 21:51 21:52 22:05 RBC (4.30-5.90) m/uL Hgb (13.0-17.5) gm/dL Hct (39.0-53.0) % Plt Count (150-450) k/uL Chloride (98-107) mmol/L Glucose (74-99) mg/dL POC Glucose (mg/dL) 57 L 67 L 59 L (75-99) mg/dL Calcium (8.4-10.2) mg/dL Magnesium (1.6-2.3) mg/dL Alkaline Phosphatase (38-126) U/L Total Protein (6.3-8.2) g/dL Albumin (3.5-5.0) g/dL 09/09/18 09/09/18 09/09/18 Range/Units 22:07 22:23 23:13 RBC (4.30-5.90) m/uL Hgb (13.0-17.5) gm/dL Hct (39.0-53.0) % Plt Count (150-450) k/uL Chloride (98-107) mmol/L Glucose (74-99) mg/dL POC Glucose (mg/dL) 63 L 219 H 167 H (75-99) mg/dL Calcium (8.4-10.2) mg/dL Magnesium (1.6-2.3) mg/dL Alkaline Phosphatase (38-126) U/L Total Protein (6.3-8.2) g/dL Albumin (3.5-5.0) g/dL 09/10/18 09/10/18 09/10/18 Range/Units 00:20 01:44 03:04 RBC (4.30-5.90) m/uL Hgb (13.0-17.5) gm/dL Hct (39.0-53.0) % Plt Count (150-450) k/uL Chloride (98-107) mmol/L Glucose (74-99) mg/dL POC Glucose (mg/dL) 148 H 122 H 122 H (75-99) mg/dL Calcium (8.4-10.2) mg/dL Magnesium (1.6-2.3) mg/dL Alkaline Phosphatase (38-126) U/L Total Protein (6.3-8.2) g/dL Albumin (3.5-5.0) g/dL 09/10/18 09/10/18 09/10/18 Range/Units 03:58 05:00 05:00 RBC 2.92 L (4.30-5.90) m/uL Hgb 9.1 L D (13.0-17.5) gm/dL Hct 27.8 L (39.0-53.0) % Plt Count 115 L (150-450) k/uL Chloride 109 H (98-107) mmol/L Glucose 110 H (74-99) mg/dL POC Glucose (mg/dL) 103 H (75-99) mg/dL Calcium 7.7 L (8.4-10.2) mg/dL Magnesium 2.4 H (1.6-2.3) mg/dL Alkaline Phosphatase 31 L (38-126) U/L Total Protein 4.9 L (6.3-8.2) g/dL Albumin 2.9 L (3.5-5.0) g/dL 09/10/18 09/10/18 09/10/18 Range/Units 07:39 11:16 16:56 RBC (4.30-5.90) m/uL Hgb (13.0-17.5) gm/dL Hct (39.0-53.0) % Plt Count (150-450) k/uL Chloride (98-107) mmol/L Glucose (74-99) mg/dL POC Glucose (mg/dL) 120 H 251 H 170 H (75-99) mg/dL Calcium (8.4-10.2) mg/dL Magnesium (1.6-2.3) mg/dL Alkaline Phosphatase (38-126) U/L Total Protein (6.3-8.2) g/dL Albumin (3.5-5.0) g/dL Assessment and Plan Assessment: -Unstable angina, CAD, status post cardiac catheterization with 90% LAD stenosis. Status post CABG. -Acute respiratory failure, status post mechanical ventilator-dependence, expected outcome of CABG -Postop blood loss anemia, expected outcome of CABG -Sleep apnea -History of DVT -Remote history of nicotine dependence -Diabetes mellitus Plan: Continue on current medication regime , beta marline, statin, aspirin, monitoring and symptomatic treatment. She prophylaxis in place Aggressive pulmonary toileting with incentive spirometer reinforced. Insulin drip has been weaned off, 3 shot protocol initiated. Close monitoring of Accu-Cheks. Further recommendations to follow. The impression and plan of care has been dictated as directed. : I performed a history and examination of this patient, discussed the same with the dictator. I agree with the dictator's note ,documented as a scribe. Any additional findings or plans will be noted.
[2018-09-10] MEDS: SENNOSIDES-DOCUSATE SODIUM 1 EACH TAB PO SCH (20:24)
[2018-09-10 20:41] LABS: Glucose,Whole Blood 137 mg/dL (75-99)
[2018-09-11 01:51] LABS: Glucose,Whole Blood 109 mg/dL (75-99)
[2018-09-11 05:12] LABS: Basophils % (A) 0 %; Eosinophils # (A) 0.2 k/uL (0-0.7); Eosinophils % (A) 2 %; HCT 26.1 % (39.0-53.0); HGB 8.7 gm/dL (13.0-17.5); Lymphocytes # (A) 1.4 k/uL (1.0-4.8); Lymphocytes % (A) 18 %; MCHC 33.3 g/dL (31.0-37.0); MCV 96.1 fL (80.0-100.0); Mean Platelet Volume 7.7; Monocytes # (A) 0.6 k/uL (0-1.0); Monocytes % (A) 8 %; Neutrophils # (A) 5.3 k/uL (1.3-7.7); Neutrophils % (A) 69 %; Platelet Count 123 k/uL (150-450); RBC 2.72 m/uL (4.30-5.90); RDW 14.3 % (11.5-15.5); WBC 7.6 k/uL (3.8-10.6)
[2018-09-11 05:23] LABS: ALT 35 U/L (21-72); AST 44 U/L (17-59); Albumin 2.8 g/dL (3.5-5.0); Alkaline Phosphatase 29 U/L (38-126); Anion Gap 3 mmol/L; Blood Urea Nitrogen 22 mg/dL (9-20); Calcium 7.7 mg/dL (8.4-10.2); Carbon Dioxide 28 mmol/L (22-30); Chloride 109 mmol/L (98-107); Glucose 104 mg/dL (74-99); Magnesium 2.5 mg/dL (1.6-2.3); Potassium 4.3 mmol/L (3.5-5.1); Sodium 140 mmol/L (137-145); Total Bilirubin 0.4 mg/dL (0.2-1.3); Total Protein 4.9 g/dL (6.3-8.2)
[2018-09-11] MEDS: KETOROLAC 30 MG/ML 1 ML VIAL IVP SCH ×2 (06:51)
[2018-09-11] MEDS: HYDROcodone/APAP 5-325MG 1 EACH TAB PO PRN ×3 (07:05→23:15)
--- NOTE | 2018-09-11 07:05 | XR ---
EXAMINATION TYPE: XR chest 1V portable DATE OF EXAM: 09/11/2018 HISTORY: post cardiac surgery. REFERENCE: Previous study dated 09/10/2018. FINDINGS: There has been a midline sternotomy. A left pleural drain remains in place. A right interna l jugular sheath is in place. Heart size is upper limits of normal. There is bibasilar airspace disease. This has worsened on the r ight. There are bilateral effusions, greater on the left than the right. IMPRESSION: WORSENING BIBASILAR ATELECTASIS AND SMALL EFFUSIONS.
[2018-09-11] MEDS: INSULIN ASPART 100 UNIT/ML 1 ML 10 ML VIAL SQ SCH ×5 (07:23→20:39)
[2018-09-11] MEDS: INSULN ASP PRT/INSULIN ASPART 100 UNIT/ML 10 ML VIAL SQ SCH (07:24)
[2018-09-11] MEDS: HEPARIN SODIUM,PORCINE 5,000 UNIT/ML 1 ML VIAL SQ SCH ×2 (08:29)
[2018-09-11] MEDS: METOPROLOL TARTRATE 50 MG TAB PO SCH (08:30)
[2018-09-11] MEDS: ASPIRIN 325 MG TAB PO SCH (08:30)
[2018-09-11] MEDS: CLOPIDOGREL 75 MG TAB PO SCH (08:30)
[2018-09-11] MEDS: ATORVASTATIN 80 MG TAB PO SCH (08:30)
[2018-09-11] MEDS: PANTOPRAZOLE 40 MG TABLET PO SCH (08:30)
[2018-09-11] MEDS: LACTATED RINGERS 1,000 ML IV SCH (08:34)
[2018-09-11] MEDS: IPRATROPIUM-ALBUTEROL 3 ML NEB INHALATION SCH ×4 (08:39→19:50)
[2018-09-11] MEDS ORDERED: ALBUMIN HUMAN 5% 250 ML in EMPTY BAG 1 BAG IVPB STA (10:42)
[2018-09-11] MEDS ORDERED: FUROSEMIDE 10 MG/ML 2 ML VIAL IV STA (10:50)
--- NOTE | 2018-09-11 11:19 | P.PN ---
Subjective Progress Note Date: 09/11/18 Principal diagnosis: Status post CABG postoperative day #3 Principal diagnosis: This is a very pleasant 77-year-old gentleman who follows with Dr. Molina as his primary care physician. 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 He had recently been having episodes of chest discomfort with exertion. Even walking out to his mailbox and back he would have to stop and rest until the pain subsided. He was seen and evaluated by Dr. Hood who directed him here to the emergency room on 09/02/2018. He had subsequently undergone cardiac catheterization and was found to have a 99% stenosis of the ostial portion of the left anterior descending artery. He does have a normal left ventricular systolic function. He was not a stent candidate and has been seen and evaluated by cardiothoracic surgery who are planning to do coronary artery bypass grafting on 09/08/2018. We are consulted for the same. The patient does have a 30 year pack per day smoking history however quit 30 years ago. He denies any history of COPD, emphysema or asthma. He is not utilizing any inhalers or oxygen in the outpatient setting. He has not been seen by a digester hand in the past. He is seen today in consultation on the selective care unit. He is currently awake and alert in no acute distress. He denies any chest discomfort currently. No shortness of breath, cough or congestion. No dizziness or lightheadedness. He does have preserved left ventricular systolic function with ejection fraction 55-60%. No valvular heart disease. White count 6.8. Ceohpmpcuw28.3. Creatinine 0.73. FEV1 value greater than 2 L. Chest x-ray showed no acute cardiopulmonary process. Carotid Dopplers without significant stenosis. On 09/08/2018 patient seen in follow-up in the intensive care units status post coronary bypass grafting, with DAVE to LAD, and SVG to the diagonal branch. Patient sedated, intubated, on mechanical ventilator, current settings are assist-control mode with a rate of 12, tidal volume of 600, FiO2 of 50% and PEEP of 5. Postoperative blood gases showed pO2 of 394, pCO2 41, and pH of 7.41 , FiO2 was dropped down to 50%. CBC showed white blood count of 7.9, hemoglobin of 9.1, sodium of 141, potassium is 4.3, chloride is 112, BUN of 11, creatinine of 0.66. Lung sounds are clear to auscultation, midline incision is clean dry and intact, approximated, covered with surgical dressing, AV wires to an external pacemaker with a backup rate, patient is sinus rhythm with a rate of 71 BPM, blood pressures 119/60, PA pressures of 22/13, cardiac output is 12.9 , and cardiac index of 7.5. 2 mediastinal chest tubes with a proximal 110 cigarettes output in the Pleur-evac, and there is occasional mild air leak noted , left pleural chest tube with of 40 mL of sanguinous output. IV fluids include lactated Ringer's at a rate of 50, nitroglycerin at 5 mics per minute, Diprivan, Cleviprex at 2 mg/h, insulin to be started for blood sugar over 110. Patient is nonoliguric. Postop chest x-ray was reviewed by Dr. Moore, showed mediastinal drains, epicardial pacing leads, left-sided thoracostomy tube endotracheal tube NG tube Sweeden-Kimberly catheter in appropriate positions, no pneumothorax, or pulmonary vascular congestion. Left mid lung subsegmental atelectasis noted. On 09/09/2018, patient is postoperative day #1, status post CABG. Patient was extubated last night uneventfully, and he seems to be doing great. Complaining of aches and pains, but his chest x-ray seems to be reassuring, and his labs are also reassuring. Patient is sitting at a bedside chair, relatively asymptomatic except for pain. CBC is relatively normal, hemoglobin is 11. Electrolytes and renal profile are normal. Chest x-ray showed mostly postoperative changes, atelectasis is noted at the bases. Mostly in the left midlung area, and that is expected. On 09/10/2018, patient is postoperative day #2. Doing relatively well, sitting at a bedside chair, chest tubes remains in place, chest x-ray showed no evidence of acute process. Patient is saturating well on 2 L nasal cannula, he is in no distress, continues to have some vague chest discomfort and pain related to his surgery. Doing well with incentive spirometry. Labs were reviewed, hemoglobin is 9.1, blood pressure is 148/47. Reevaluated today on 09/11/2018, patient remains in the ICU, he is postoperative day #3. Clinically the patient is doing well, however there is a concern about chylothorax noted in one of the chest tubes, fluid was sent for triglycerides and cholesterol. Results are pending. However the appearance of the fluid looks like P make enough to seriously consider chylothorax. Patient denies any cough, no wheezing, no shortness of breath, no nausea no vomiting no abdominal pain, and he is doing well with incentive spirometry roughly about 1000 mL. Chest x-ray showed postoperative changes as expected. Mostly minimal bibasilar atelectasis and small effusions. Objective - Vital Signs Vital signs: Vital Signs Temp 98.2 F 09/11/18 08:00 Pulse 98 09/11/18 10:00 Resp 21 09/11/18 10:00 BP 116/44 09/11/18 10:00 Pulse Ox 97 09/11/18 10:00 Intake & Output 09/10/18 09/11/18 09/11/18 18:59 06:59 18:59 Intake Total 220 270 309 Output Total 930 730 240 Balance -710 -460 69 Weight 85.4 kg Intake: IV 220 270 69 Lactated Ringers 1,000 ml 220 240 60 @ 20 mls/hr IV .Q24H [facility] Rx#:[id number] Pressure bag .9 30 9 Oral 240 Output: Chest Tube Drainage 490 210 210 Bilateral Mediastinal 340 170 70 Left Lateral Chest 150 40 140 Urine 440 520 30 Other: Voiding Method Indwelling Catheter Bedside Commode Bedside Commode # Voids 0 # Bowel Movements 1 ABP, PAP, CO, CI - Last Documented Arterial Blood Pressure 168/38 Pulmonary Artery Pressure 20/11 Cardiac Output 4.4 Cardiac Index 2.6 - Exam GENERAL EXAM: 77-year-old white male,- on 2 L nasal cannula, asymptomatic, in no distress HEAD: Normocephalic/atraumatic. EYES: PERRLA, EOMI, no icterus. NOSE: Clear with pink turbinates. THROAT: No erythema or exudates. NECK: No masses, no JVD, no thyroid enlargement, no adenopathy. Moist mucous membranes noted. CHEST: No chest wall deformity. Symmetrical chest expansion, chest tubes were noted. LUNGS: Equal air entry with no crackles, wheeze, rhonchi or dullness. CVS: Regular rate and rhythm, normal S1 and S2, no gallops, no murmurs, no rubs ABDOMEN: Soft, nontender. No hepatosplenomegaly, normal bowel sounds, no guarding or rigidity. EXTREMITIES: No clubbing, no edema, no cyanosis, 2+ pulses and upper and lower extremities. SCDs are in place on bilateral lower extremities MUSCULOSKELETAL: Muscle strength and tone normal. SPINE: No scoliosis or deformity SKIN: No rashes CENTRAL NERVOUS SYSTEM: Alert oriented 3, no gross focal neurologic deficits. - Labs CBC & Chem 7: 09/11/18 04:41 09/11/18 04:41 Labs: Abnormal Lab Results - Last 24 Hours (Table) 09/10/18 09/10/18 09/10/18 Range/Units 11:16 16:56 20:40 RBC (4.30-5.90) m/uL Hgb (13.0-17.5) gm/dL Hct (39.0-53.0) % Plt Count (150-450) k/uL Chloride (98-107) mmol/L BUN (9-20) mg/dL Glucose (74-99) mg/dL POC Glucose (mg/dL) 251 H 170 H 137 H (75-99) mg/dL Calcium (8.4-10.2) mg/dL Magnesium (1.6-2.3) mg/dL Alkaline Phosphatase (38-126) U/L Total Protein (6.3-8.2) g/dL Albumin (3.5-5.0) g/dL 09/11/18 09/11/18 09/11/18 Range/Units 01:49 04:41 04:41 RBC 2.72 L (4.30-5.90) m/uL Hgb 8.7 L (13.0-17.5) gm/dL Hct 26.1 L (39.0-53.0) % Plt Count 123 L (150-450) k/uL Chloride 109 H (98-107) mmol/L BUN 22 H (9-20) mg/dL Glucose 104 H (74-99) mg/dL POC Glucose (mg/dL) 109 H (75-99) mg/dL Calcium 7.7 L (8.4-10.2) mg/dL Magnesium 2.5 H (1.6-2.3) mg/dL Alkaline Phosphatase 29 L (38-126) U/L Total Protein 4.9 L (6.3-8.2) g/dL Albumin 2.8 L (3.5-5.0) g/dL Assessment and Plan Assessment: #1 Coronary artery disease with 99% stenosis involving the ostial portion of the left anterior descending artery, status post 2 vessel bypass grafting, with DAVE to LAD, and SVG to the diagonal branch, postop day #3 #2 Routine postoperative ventilator management #3 Postop blood loss anemia, an expected outcome of bypass surgery #4 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 #5 Diabetes mellitus. #6 Osteoarthritis. #7 Sleep apnea. #8 Remote history of chronic tobacco dependence. #9 postoperative atelectasis, expected after his CABG. #10 possible chylothorax, or pseudo chylothorax workup is pending on the pleural effusion which was sent for triglycerides and cholesterol. Recommendation: Continue present supportive care measures including oxygen, bronchodilators, incentive spirometry, continue cardiac meds including aspirin statins and Plavix beta blockers. If the patient truly has chylothorax, and it does not improve, options of lymph angiogram and embolization or the option of pleurodesis may have to be considered. However this may resolve on its own. Patient will remain in the ICU, will continue to follow. All his meds were reviewed, chest x-ray was reviewed, labs were all reviewed, awaiting the report on his pleural effusion, clinically looks like chylothorax. Time with Patient: Less than 30
[2018-09-11] MEDS ORDERED: METOPROLOL TARTRATE 25 MG TAB PO STA (11:23)
--- NOTE | 2018-09-11 11:37 | P.PN ---
Subjective Progress Note Date: 09/11/18 Principal diagnosis: Coronary artery disease with ostial LAD stenosis 99%, diabetes with the preoperative hemoglobin A1c of 6.5%, skin cancer with removal, DVT left lower extremity in 2013 and right lower extremity in 2013 on chronic Xarelto for anticoagulation, recent left rotator cuff repair, previous tobacco dependence, COPD with preoperative FEV1 67% of predicted, obstructive sleep apnea without home CPAP use, peripheral vascular disease, and family history of early coronary artery disease with his father diagnosed at 52 years old. POD #3 coronary bypass grafting 2 vessels, left internal mammary artery to the left anterior descending artery, a reverse greater saphenous vein graft to the diagonal coronary artery. Endoscopic vein harvest, left greater saphenous vein from the thigh. Epi-aortic ultrasound and intraoperative transesophageal echocardiogram. Postoperative acute blood loss anemia, an expected outcome given cardiopulmonary bypass and hemodilution. The patient is sitting up to the bedside chair. He is in no acute distress. His bedside telemetry is showing sinus tachycardia heart rate 109. He currently rates his pain 5 out of 10 on the pain scale to his chest tube insertion sites, denies any complaints of shortness of breath. He remains on 1 L nasal cannula with oxygen saturations 97% and he is achieving 1000 mL on his incentive spirometry with encouragement. Patient remains with mediastinal and left pleural chest tubes. His mediastinal chest tubes are draining a milky colored drainage, and his pleural fluid has been sent for triglyceride levels to rule out chylothorax. The triglyceride levels of the pleural fluid is pending. He reports he ambulated in the intensive care unit hallway yesterday with 2 person assist and tolerated the ambulation well. Objective - Vital Signs Vital signs: Vital Signs Temp 98.2 F 09/11/18 08:00 Pulse 98 09/11/18 10:00 Resp 21 09/11/18 10:00 BP 116/44 09/11/18 10:00 Pulse Ox 97 09/11/18 10:00 Intake & Output 09/10/18 09/11/18 09/11/18 18:59 06:59 18:59 Intake Total 220 270 309 Output Total 930 730 240 Balance -710 -460 69 Weight 85.4 kg Intake: IV 220 270 69 Lactated Ringers 1,000 ml 220 240 60 @ 20 mls/hr IV .Q24H [facility] Rx#:[id number] Pressure bag .9 30 9 Oral 240 Output: Chest Tube Drainage 490 210 210 Bilateral Mediastinal 340 170 70 Left Lateral Chest 150 40 140 Urine 440 520 30 Other: Voiding Method Indwelling Catheter Bedside Commode Bedside Commode # Voids 0 # Bowel Movements 1 ABP, PAP, CO, CI - Last Documented Arterial Blood Pressure 168/38 Pulmonary Artery Pressure 20/11 Cardiac Output 4.4 Cardiac Index 2.6 - Constitutional General appearance: Present: cooperative, no acute distress - Respiratory Details: Lung sounds are essentially clear throughout, diminished to his bilateral bases. Respirations are symmetrical and nonlabored. Oxygen saturation are 97% on 1 L nasal cannula. He is achieving 1000 L on his incentive spirometry with encouragement. Mediastinal chest tubes in place to low continuous wall suction -20 cm H2O. Draining a milky-colored drainage. No air leak is present. 90 mL output the last 8 hours, 550 mm output in the last 24 hours. Left pleural chest tubes remain in place to low continuous wall suction -20 cm H2O. No air leak is present. Draining thin serosanguineous drainage. 190 mL output in the last 8 hours, 300 mL output in the last 24 hours. - Cardiovascular Details: Regular rhythm and rate. S1 and S2 present, negative for S3, gallop or murmur. Sternum is stable. Bedside telemetry showing normal sinus tachycardia heart rate 109. No edema present. Heart hugger is in place and he is demonstrating appropriate use. Atrial and ventricular epicardial pacemaker wires in place and grounded. Right IJ Cordis is in place to continue CVP monitoring, current CVP pressure 4 mmHg. Right radial arterial line in place and functioning. Knee -high JOSE hose and sequential compression devices in place to his bilateral lower extremities. - Gastrointestinal Gastrointestinal Comment(s): Abdomen is soft, nontender and nondistended. Active bowel sounds to all 4 abdominal quadrants. Tolerating oral intake. Bowel movement this a.m. - Genitourinary Genitourinary Comment(s): Voiding clear yellow urine. 360 mL output in the last 8 hours. - Integumentary Integumentary Comment(s): Skin is warm and dry. No clubbing or cyanosis is present. Midline sternal incision is clean, dry and approximated. No drainage or redness is present. Gauze dressing is clean, dry and intact. Left lower extremity EVH site clean, dry and approximated. No drainage or redness present. - Neurologic Neurologic: Present: CNII-XII intact - Musculoskeletal Musculoskeletal: Present: gait normal, generalized weakness, strength equal bilaterally - Psychiatric Psychiatric: Present: A&O x's 3, appropriate affect, intact judgment & insight - Allied health notes Allied health notes reviewed: nursing - Labs CBC & Chem 7: 09/11/18 04:41 09/11/18 04:41 Labs: Abnormal Lab Results - Last 24 Hours (Table) 09/10/18 09/10/18 09/11/18 Range/Units 16:56 20:40 01:49 RBC (4.30-5.90) m/uL Hgb (13.0-17.5) gm/dL Hct (39.0-53.0) % Plt Count (150-450) k/uL Chloride (98-107) mmol/L BUN (9-20) mg/dL Glucose (74-99) mg/dL POC Glucose (mg/dL) 170 H 137 H 109 H (75-99) mg/dL Calcium (8.4-10.2) mg/dL Magnesium (1.6-2.3) mg/dL Alkaline Phosphatase (38-126) U/L Total Protein (6.3-8.2) g/dL Albumin (3.5-5.0) g/dL 09/11/18 09/11/18 Range/Units 04:41 04:41 RBC 2.72 L (4.30-5.90) m/uL Hgb 8.7 L (13.0-17.5) gm/dL Hct 26.1 L (39.0-53.0) % Plt Count 123 L (150-450) k/uL Chloride 109 H (98-107) mmol/L BUN 22 H (9-20) mg/dL Glucose 104 H (74-99) mg/dL POC Glucose (mg/dL) (75-99) mg/dL Calcium 7.7 L (8.4-10.2) mg/dL Magnesium 2.5 H (1.6-2.3) mg/dL Alkaline Phosphatase 29 L (38-126) U/L Total Protein 4.9 L (6.3-8.2) g/dL Albumin 2.8 L (3.5-5.0) g/dL - Imaging and Cardiology Chest x-ray: report reviewed, image reviewed Assessment and Plan (1) History of DVT (deep vein thrombosis) Current Visit: Yes Status: Acute Code(s): Z86.718 - PERSONAL HISTORY OF OTHER VENOUS THROMBOSIS AND EMBOLISM SNOMED Code(s): 233199175 (2) Obstructive sleep apnea Current Visit: Yes Status: Acute Code(s): G47.33 - OBSTRUCTIVE SLEEP APNEA ( ADULT) (PEDIATRIC) SNOMED Code(s): 70478097 (3) COPD (chronic obstructive pulmonary disease) Current Visit: Yes Status: Acute Code(s): J44.9 - CHRONIC OBSTRUCTIVE PULMONARY DISEASE, UNSPECIFIED SNOMED Code(s): 45135965 (4) Unstable angina pectoris Current Visit: Yes Status: Acute Code(s): I20.0 - UNSTABLE ANGINA SNOMED Code(s): 6556408 (5) Chronic anticoagulation Current Visit: Yes Status: Chronic Code(s): Z79.01 - AIR BR[employer] OPERATOR (CURRENT) USE OF ANTICOAGULANTS SNOMED Code(s): 030371636 (6) Coronary artery disease Current Visit: Yes Status: Chronic Code(s): I25.10 - ATHSCL HEART DISEASE OF [place] CORONARY ARTERY W/O ANG PCTRS SNOMED Code(s): 47373272 (7) Diabetes mellitus Current Visit: Yes Status: Chronic Code(s): E11.9 - TYPE 2 DIABETES MELLITUS WITHOUT COMPLICATIONS SNOMED Code(s): 41801386 (8) Family history of premature CAD Current Visit: Yes Status: Chronic Code(s): Z82.49 - FAMILY HX OF ISCHEM HEART DIS AND OTH DIS OF THE CIRC SYS SNOMED Code(s): 284350828 (9) History of skin cancer Current Visit: No Status: Resolved Code(s): Z85.828 - PERSONAL HISTORY OF OTHER MALIGNANT NEOPLASM OF SKIN SNOMED Code(s): 456685506 (10) Tobacco dependence in remission Current Visit: No Status: Resolved Code(s): F17.201 - NICOTINE DEPENDENCE, UNSPECIFIED, IN REMISSION SNOMED Code(s): 358320018 (11) Hypertension Current Visit: Yes Status: Acute Code(s): I10 - ESSENTIAL (PRIMARY) HYPERTENSION SNOMED Code(s): 70519833 Plan: 1. Continue low-dose aspirin, statin, and beta marline. Will increase his metoprolol tartrate 75 mg by mouth twice a day. 2. Discontinue right IJ Cordis. 3. Will add Xarelto back to medication regimen prior to discharge once all of lines and tubes have been discontinued. 4. Wean O2 as tolerated. Encourage incentive spirometry use, 10 times every hour while awake. 5. Increase activity, ambulate as tolerated. PT/OT/cardiac rehab following. 6. Will monitor daily labs and x-rays. Electrolyte replacement per protocol. We will monitor his platelet count, platelet count today is 123,000. 7. Pain control with current medication regimen. Discontinue Toradol as we will be initiating a heparin drip. 8. Insulin management per primary care service. 9. GI prophylaxis with Protonix, DVT prophylaxis with SCDs. 10. Encourage continued smoking cessation. 11. 5% albumin 250 mL 1 now followed by Lasix 20 mg IV 1 now. 12. His atrial and ventricular epicardial pacemaker wires were pulled at 10:15 AM this morning without incident. He will be on bedrest for 1 hour post pacemaker wire removal. 13. Pleural fluid for triglyceride levels is pending. We will start the patient on a no fat diet for possible chylothorax. 14. We will discontinue his subcu heparin, Plavix and change his aspirin to 81 mg by mouth daily. We will initiate a heparin drip per low-dose intensity protocol to start at 700 units per hour for history of DVTs to his bilateral lower extremities. 15. More recommendations to follow based on his clinical course.
[2018-09-11 12:11] LABS: Glucose,Whole Blood 216 mg/dL (75-99)
[2018-09-11] MEDS ORDERED: HEPARIN SODIUM,PORCINE 5,000 UNIT/ML 1 ML VIAL IV PRN (17:00)
[2018-09-11 17:07] LABS: Glucose,Whole Blood 120 mg/dL (75-99)
[2018-09-11] MEDS: HEPARIN SOD,PORK IN 0.45% NACL 25,000 UNIT in 0.45% NACL 1 250ML.BAG IV SCH (17:47)
[2018-09-11 19:41] LABS: Glucose,Whole Blood 123 mg/dL (75-99)
[2018-09-11] MEDS: SENNOSIDES-DOCUSATE SODIUM 1 EACH TAB PO SCH (20:59)
[2018-09-11] MEDS: METOPROLOL TARTRATE 25 MG TAB PO SCH (20:59)
--- NOTE | 2018-09-11 21:12 | PN ---
PROGRESS NOTE DATE OF SERVICE: 09/11/2018 This 77-year-old gentleman who was admitted after CAD, CABG, is improving significantly. No chest pain. No palpitations. No fever. PHYSICAL EXAM: Alert and oriented times three. Pulse 93, blood pressure 108/56. Respiratory rate 20. Temperature normal. Pulse ox 94% on 2 L. HEENT: Conjunctivae normal. Oral mucosa moist. NECK: No jugular venous distention. No carotid bruit. No lymph node enlargement. CARDIOVASCULAR: S1, S2 muffled. RESPIRATORY: Breath sounds diminished in the bases. A few scattered rhonchi and crackles. ABDOMEN: Soft, nontender. LEGS are no edema. No swelling. CENTRAL NERVOUS SYSTEM: No focal deficits. Chest tube in-situ. LABORATORY DATA: WBC 7.2, hemoglobin is 8.2, sodium 140, potassium 4.3. Albumin is 2.8. ASSESSMENT: 1. Unstable angina, status post cardiac catheterization, 90% LAD stenosis, status post coronary artery bypass grafting. 2. Status post mechanical ventilation as expected after coronary artery bypass grafting. 3. Acute postop blood-loss anemia possibly secondary to coronary artery bypass grafting, expected outcome. 4. Sleep apnea. 5. History of deep vein thrombosis. 6. Remote history of nicotine dependence. 7. Diabetes mellitus type 2. RECOMMENDATIONS AND DISCUSSION: Continue current medications, management. Continue symptomatic treatment. Continue the rest of medications. Closely follow with surgery and cardiothoracic surgery. Further recommendations to follow. MMARMIDAL / LOREN: [id number] / MTDD
[2018-09-12] MEDS: HYDROcodone/APAP 5-325MG 1 EACH TAB PO PRN (05:40)
[2018-09-12 06:04] LABS: Basophils % (A) 1 %; Eosinophils # (A) 0.2 k/uL (0-0.7); Eosinophils % (A) 3 %; HCT 31.6 % (39.0-53.0); HGB 9.9 gm/dL (13.0-17.5); Lymphocytes # (A) 1.5 k/uL (1.0-4.8); Lymphocytes % (A) 19 %; MCH 31.1 pg (25.0-35.0); MCHC 31.3 g/dL (31.0-37.0); MCV 99.4 fL (80.0-100.0); Mean Platelet Volume 7.6; Monocytes # (A) 0.6 k/uL (0-1.0); Monocytes % (A) 7 %; Neutrophils # (A) 5.3 k/uL (1.3-7.7); Neutrophils % (A) 68 %; RBC 3.17 m/uL (4.30-5.90); WBC 7.8 k/uL (3.8-10.6)
[2018-09-12 06:45] LABS: Platelet Count 98 k/uL (150-450); Polychromasia Present
[2018-09-12 06:55] LABS: Glucose,Whole Blood 153 mg/dL (75-99)
--- NOTE | 2018-09-12 07:00 | XR ---
EXAMINATION TYPE: XR chest 1V portable DATE OF EXAM: 09/12/2018 HISTORY: shortness of breath. REFERENCE: Previous study dated 09/11/2018. FINDINGS: There is a left pleural drain in place. Lung volumes are prominent. There is bibasilar airspace disease, worse on the left than the right. Th ere are small, bilateral effusions, greater on the left than the right. The heart is mildly enlarged. IMPRESSION: 1. CONTINUING BIBASILAR AIRSPACE DISEASE. 2. SMALL, BILATERAL EFFUSIONS, GREATER ON THE LEFT THAN THE RIGHT. 3. MILD CARDIOMEGALY.
[2018-09-12] MEDS: INSULIN ASPART 100 UNIT/ML 1 ML 10 ML VIAL SQ SCH ×5 (07:34→23:24)
[2018-09-12] MEDS: INSULN ASP PRT/INSULIN ASPART 100 UNIT/ML 10 ML VIAL SQ SCH (07:34)
[2018-09-12 07:42] LABS: INR 0.9 (<1.2); Prothrombin Time 9.8 sec (9.0-12.0)
[2018-09-12] MEDS: IPRATROPIUM-ALBUTEROL 3 ML NEB INHALATION SCH ×4 (07:44→20:11)
[2018-09-12 08:04] LABS: Anion Gap 8 mmol/L; Blood Urea Nitrogen 17 mg/dL (9-20); Calcium 8.2 mg/dL (8.4-10.2); Carbon Dioxide 23 mmol/L (22-30); Chloride 108 mmol/L (98-107); Glucose 138 mg/dL (74-99); Magnesium 2.2 mg/dL (1.6-2.3); Potassium 4.4 mmol/L (3.5-5.1); Sodium 139 mmol/L (137-145)
[2018-09-12] MEDS: ATORVASTATIN 80 MG TAB PO SCH (08:43)
[2018-09-12] MEDS: PANTOPRAZOLE 40 MG TABLET PO SCH (08:43)
[2018-09-12] MEDS: METOPROLOL TARTRATE 25 MG TAB PO SCH ×2 (08:43→23:27)
[2018-09-12] MEDS: ASPIRIN 81 MG PO SCH (08:43)
[2018-09-12] MEDS: LACTATED RINGERS 1,000 ML IV SCH (08:44)
--- NOTE | 2018-09-12 09:49 | P.PN ---
Subjective Progress Note Date: 09/12/18 Principal diagnosis: Coronary artery disease with ostial LAD stenosis 99%, diabetes with the preoperative hemoglobin A1c of 6.5%, skin cancer with removal, DVT left lower extremity in 2013 and right lower extremity in 2013 on chronic Xarelto for anticoagulation, recent left rotator cuff repair, previous tobacco dependence, COPD with preoperative FEV1 67% of predicted, obstructive sleep apnea without home CPAP use, peripheral vascular disease, and family history of early coronary artery disease with his father diagnosed at 52 years old. POD #4 coronary bypass grafting 2 vessels, left internal mammary artery to the left anterior descending artery, a reverse greater saphenous vein graft to the diagonal coronary artery. Endoscopic vein harvest, left greater saphenous vein from the thigh. Epi-aortic ultrasound and intraoperative transesophageal echocardiogram. Postoperative acute blood loss anemia, an expected outcome given cardiopulmonary bypass and hemodilution. The patient is sitting up to the bedside chair. He is in no acute distress. His bedside telemetry is showing sinus rhythm heart rate 97. He currently denies any complaints of pain or shortness of breath. He remains on 1 L nasal cannula with oxygen saturations 94% and he is achieving 1000 mL on his incentive spirometry with encouragement. Patient remains with mediastinal and left pleural chest tubes. His mediastinal chest tubes and his left pleural fluid remaining in place and are draining thin serosanguineous drainage. The triglyceride levels of the pleural fluid results remaining pending. The patient 's and son are at his bedside, questions were answered to the best of my ability. Objective - Vital Signs Vital signs: Vital Signs Temp 98 F 09/12/18 08:00 Pulse 99 09/12/18 08:00 Resp 26 H 09/12/18 08:00 BP 152/63 09/12/18 08:00 Pulse Ox 96 09/12/18 08:00 Intake & Output 09/11/18 09/12/18 09/12/18 18:59 06:59 18:59 Intake Total 997 534.483 104.438 Output Total 790 1690 330 Balance 207 -1155.517 -225.562 Intake: IV 517 240 40 Albumin Human 5% 250 ml 250 In Empty Bag 1 bag @ 250 mls/hr IVPB ONCE [facility] Rx#: [id number] Lactated Ringers 1,000 ml 240 240 40 @ 20 mls/hr IV .Q24H [facility] Rx#:[id number] Pressure bag .9 27 Intake, IV Titration 54.483 64.438 Amount Heparin Sod,Pork in 0.45% 54.483 64.438 NaCl 25,000 unit In 0.45 % NaCl 1 250ml.bag @ 700 UNIT/HR 7 mls/hr IV .Q24H [facility] Rx#:[id number] Oral 480 240 Output: Chest Tube Drainage 360 190 80 Bilateral Mediastinal 180 120 40 Left Lateral Chest 180 70 40 Urine 430 900 250 Urine/Stool Mix 600 Other: Voiding Method Bedside Commode Bedside Commode # Voids 1 0 0 # Bowel Movements 1 1 1 ABP, PAP, CO, CI - Last Documented Arterial Blood Pressure 168/38 Pulmonary Artery Pressure 20/11 Cardiac Output 4.4 Cardiac Index 2.6 - Constitutional General appearance: Present: cooperative, no acute distress - Respiratory Details: Lung sounds are essentially clear throughout, diminished to his bilateral bases. Respirations are symmetrical and nonlabored. Oxygen saturation are 94 percent on room air. He is achieving 1000 L on his incentive spirometry with encouragement. Mediastinal chest tubes and left pleural chest tube remained in place to water seal. Draining a thin serosanguineous drainage. No air leak is present. Mediastinal chest tubes drained 120 mL output in the last 8 hours, 260 mL output in the last 24 hours. Left pleural chest tube drained 70 mL output in the last 8 hours, 200 mL output in the last 24 hours. - Cardiovascular Details: Regular rhythm and rate. S1 and S2 present, negative for S3, gallop or murmur. Sternum is stable. Bedside telemetry showing normal sinus rhythm heart rate 97. Heart hugger is in place and he is demonstrating appropriate use. Knee- high JOSE hose and sequential compression devices in place to his bilateral lower extremities. No edema present. - Gastrointestinal Gastrointestinal Comment(s): Abdomen is soft, nontender and nondistended. Active bowel sounds all 4 abdominal quadrants. Bowel movement this a.m. Tolerating oral intake. - Genitourinary Genitourinary Comment(s): Voiding clear yellow urine. 900 mL output in the last 8 hours. - Integumentary Integumentary Comment(s): Skin is warm and dry. No clubbing or cyanosis is present. Midline sternal incision is clean, dry and approximated. No drainage or redness is present. Gauze dressing is clean, dry and intact. Left lower extremity EVH site clean, dry and approximated. No drainage or redness present. - Neurologic Neurologic: Present: CNII-XII intact - Musculoskeletal Musculoskeletal: Present: gait normal, generalized weakness, strength equal bilaterally - Psychiatric Psychiatric: Present: A&O x's 3, appropriate affect, intact judgment & insight - Allied health notes Allied health notes reviewed: nursing - Labs CBC & Chem 7: 09/12/18 05:17 09/12/18 06:57 Labs: Abnormal Lab Results - Last 24 Hours (Table) 09/11/18 09/11/18 09/11/18 Range/Units 12:09 17:05 19:40 RBC (4.30-5.90) m/uL Hgb (13.0-17.5) gm/dL Hct (39.0-53.0) % Plt Count (150-450) k/uL APTT (22.0-30.0) sec Chloride (98-107) mmol/L Glucose (74-99) mg/dL POC Glucose (mg/dL) 216 H 120 H 123 H (75-99) mg/dL Calcium (8.4-10.2) mg/dL 09/11/18 09/12/18 09/12/18 Range/Units 23:57 05:17 06:53 RBC 3.17 L (4.30-5.90) m/uL Hgb 9.9 L (13.0-17.5) gm/dL Hct 31.6 L (39.0-53.0) % Plt Count 98 L (150-450) k/uL APTT 39.1 H (22.0-30.0) sec Chloride (98-107) mmol/L Glucose (74-99) mg/dL POC Glucose (mg/dL) 153 H (75-99) mg/dL Calcium (8.4-10.2) mg/dL 09/12/18 09/12/18 Range/Units 06:57 06:57 RBC (4.30-5.90) m/uL Hgb (13.0-17.5) gm/dL Hct (39.0-53.0) % Plt Count (150-450) k/uL APTT 102.0 H* (22.0-30.0) sec Chloride 108 H (98-107) mmol/L Glucose 138 H (74-99) mg/dL POC Glucose (mg/dL) (75-99) mg/dL Calcium 8.2 L (8.4-10.2) mg/dL - Imaging and Cardiology Chest x-ray: report reviewed, image reviewed Assessment and Plan (1) History of DVT (deep vein thrombosis) Current Visit: Yes Status: Acute Code(s): Z86.718 - PERSONAL HISTORY OF OTHER VENOUS THROMBOSIS AND EMBOLISM SNOMED Code(s): 028546481 (2) Obstructive sleep apnea Current Visit: Yes Status: Acute Code(s): G47.33 - OBSTRUCTIVE SLEEP APNEA ( ADULT) (PEDIATRIC) SNOMED Code(s): 41967289 (3) COPD (chronic obstructive pulmonary disease) Current Visit: Yes Status: Acute Code(s): J44.9 - CHRONIC OBSTRUCTIVE PULMONARY DISEASE, UNSPECIFIED SNOMED Code(s): 03891381 (4) Unstable angina pectoris Current Visit: Yes Status: Acute Code(s): I20.0 - UNSTABLE ANGINA SNOMED Code(s): 4844986 (5) Chronic anticoagulation Current Visit: Yes Status: Chronic Code(s): Z79.01 - LONG-TERM (CURRENT) USE OF ANTICOAGULANTS SNOMED Code(s): 118733690 (6) Coronary artery disease Current Visit: Yes Status: Chronic Code(s): I25.10 - ATHSCL HEART DISEASE OF [place] CORONARY ARTERY W/O ANG PCTRS SNOMED Code(s): 50908513 (7) Diabetes mellitus Current Visit: Yes Status: Chronic Code(s): E11.9 - TYPE 2 DIABETES MELLITUS WITHOUT COMPLICATIONS SNOMED Code(s): 11577402 (8) Family history of premature CAD Current Visit: Yes Status: Chronic Code(s): Z82.49 - FAMILY HX OF ISCHEM HEART DIS AND OTH DIS OF THE CIRC SYS SNOMED Code(s): 233362204 (9) History of skin cancer Current Visit: No Status: Resolved Code(s): Z85.828 - PERSONAL HISTORY OF OTHER MALIGNANT NEOPLASM OF SKIN SNOMED Code(s): 048790606 (10) Tobacco dependence in remission Current Visit: No Status: Resolved Code(s): F17.201 - NICOTINE DEPENDENCE, UNSPECIFIED, IN REMISSION SNOMED Code(s): 930332744 (11) Hypertension Current Visit: Yes Status: Acute Code(s): I10 - ESSENTIAL (PRIMARY) HYPERTENSION SNOMED Code(s): 96481136 Plan: 1. Continue low-dose aspirin, statin, and beta marline. Will increase his metoprolol tartrate as tolerated.. 2. Leave mediastinal and left pleural chest tubes in place for now to waterseal. 3. Will add Xarelto back to medication regimen prior to discharge once all of lines and tubes have been discontinued. 4. Wean O2 as tolerated. Encourage incentive spirometry use, 10 times every hour while awake. 5. Increase activity, ambulate as tolerated. PT/OT/cardiac rehab following. 6. Will monitor daily labs and x-rays. Electrolyte replacement per protocol. We will monitor his platelet count, platelet count today is 123,000. 7. Pain control with current medication regimen. 8. Insulin management per primary care service. 9. GI prophylaxis with Protonix, DVT prophylaxis with SCDs. Continue Heparin drip at 700 units per hour with no titration. 10. Encourage continued smoking cessation. 11. Pleural fluid for triglyceride levels is pending. 12. Continue no fat diet, possible chylothorax. 13. We will transfer the patient to 3 self cardiac care stepdown unit. 14. More recommendations to follow based on his clinical course. Time with Patient: Greater than 30
[2018-09-12] MEDS: LISINOPRIL 5 MG TAB PO SCH (11:52)
[2018-09-12 11:56] LABS: Glucose,Whole Blood 105 mg/dL (75-99)
[2018-09-12 13:07] LABS: Glucose,Whole Blood 94 mg/dL (75-99)
--- NOTE | 2018-09-12 13:56 | P.PN ---
Subjective Progress Note Date: 09/12/18 Principal diagnosis: Status post CABG postoperative day # 4 Principal diagnosis: This is a very pleasant 77-year-old gentleman who follows with Dr. Molina as his primary care physician. 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 He had recently been having episodes of chest discomfort with exertion. Even walking out to his mailbox and back he would have to stop and rest until the pain subsided. He was seen and evaluated by Dr. Hood who directed him here to the emergency room on 09/02/2018. He had subsequently undergone cardiac catheterization and was found to have a 99% stenosis of the ostial portion of the left anterior descending artery. He does have a normal left ventricular systolic function. He was not a stent candidate and has been seen and evaluated by cardiothoracic surgery who are planning to do coronary artery bypass grafting on 09/08/2018. We are consulted for the same. The patient does have a 30 year pack per day smoking history however quit 30 years ago. He denies any history of COPD, emphysema or asthma. He is not utilizing any inhalers or oxygen in the outpatient setting. He has not been seen by a clinical reviewer in the past. He is seen today in consultation on the selective care unit. He is currently awake and alert in no acute distress. He denies any chest discomfort currently. No shortness of breath, cough or congestion. No dizziness or lightheadedness. He does have preserved left ventricular systolic function with ejection fraction 55-60%. No valvular heart disease. White count 6.8. [id number]. Creatinine 0.73. FEV1 value greater than 2 L. Chest x-ray showed no acute cardiopulmonary process. Carotid Dopplers without significant stenosis. On 09/08/2018 patient seen in follow-up in the intensive care units status post coronary bypass grafting, with DAVE to LAD, and SVG to the diagonal branch. Patient sedated, intubated, on mechanical ventilator, current settings are assist-control mode with a rate of 12, tidal volume of 600, FiO2 of 50% and PEEP of 5. Postoperative blood gases showed pO2 of 394, pCO2 41, and pH of 7.41 , FiO2 was dropped down to 50%. CBC showed white blood count of 7.9, hemoglobin of 9.1, sodium of 141, potassium is 4.3, chloride is 112, BUN of 11, creatinine of 0.66. Lung sounds are clear to auscultation, midline incision is clean dry and intact, approximated, covered with surgical dressing, AV wires to an external pacemaker with a backup rate, patient is sinus rhythm with a rate of 71 BPM, blood pressures 119/60, PA pressures of 22/13, cardiac output is 12.9 , and cardiac index of 7.5. 2 mediastinal chest tubes with a proximal 110 cigarettes output in the Pleur-evac, and there is occasional mild air leak noted , left pleural chest tube with of 40 mL of sanguinous output. IV fluids include lactated Ringer's at a rate of 50, nitroglycerin at 5 mics per minute, Diprivan, Cleviprex at 2 mg/h, insulin to be started for blood sugar over 110. Patient is nonoliguric. Postop chest x-ray was reviewed by Dr. Moore, showed mediastinal drains, epicardial pacing leads, left-sided thoracostomy tube endotracheal tube NG tube Pelham-Kimberly catheter in appropriate positions, no pneumothorax, or pulmonary vascular congestion. Left mid lung subsegmental atelectasis noted. On 09/09/2018, patient is postoperative day #1, status post CABG. Patient was extubated last night uneventfully, and he seems to be doing great. Complaining of aches and pains, but his chest x-ray seems to be reassuring, and his labs are also reassuring. Patient is sitting at a bedside chair, relatively asymptomatic except for pain. CBC is relatively normal, hemoglobin is 11. Electrolytes and renal profile are normal. Chest x-ray showed mostly postoperative changes, atelectasis is noted at the bases. Mostly in the left midlung area, and that is expected. On 09/10/2018, patient is postoperative day #2. Doing relatively well, sitting at a bedside chair, chest tubes remains in place, chest x-ray showed no evidence of acute process. Patient is saturating well on 2 L nasal cannula, he is in no distress, continues to have some vague chest discomfort and pain related to his surgery. Doing well with incentive spirometry. Labs were reviewed, hemoglobin is 9.1, blood pressure is 148/47. Reevaluated today on 09/11/2018, patient remains in the ICU, he is postoperative day #3. Clinically the patient is doing well, however there is a concern about chylothorax noted in one of the chest tubes, fluid was sent for triglycerides and cholesterol. Results are pending. However the appearance of the fluid looks like P make enough to seriously consider chylothorax. Patient denies any cough, no wheezing, no shortness of breath, no nausea no vomiting no abdominal pain, and he is doing well with incentive spirometry roughly about 1000 mL. Chest x-ray showed postoperative changes as expected. Mostly minimal bibasilar atelectasis and small effusions. Reevaluated today on 09/12/2018, he is postoperative day #4, remains in the ICU. Continues to have significant drainage in the mediastinal tube, felt to be chylothorax, triglyceride level is pending. Patient has been ambulating, has been using his incentive spirometry well, and overall her chest x-ray is reassuring, minimal bibasilar atelectasis is noted. Mediastinal and left pleural chest tubes were noted. Objective - Vital Signs Vital signs: Vital Signs Temp 98 F 09/12/18 12:00 Pulse 82 09/12/18 12:00 Resp 24 09/12/18 12:00 BP 109/47 09/12/18 12:00 Pulse Ox 97 09/12/18 12:00 Intake & Output 09/11/18 09/12/18 09/12/18 18:59 06:59 18:59 Intake Total 997 534.483 164.438 Output Total 790 1690 390 Balance 207 -1155.517 -225.562 Intake: IV 517 240 100 Albumin Human 5% 250 ml 250 In Empty Bag 1 bag @ 250 mls/hr IVPB ONCE STA Rx#: [id number] Lactated Ringers 1,000 ml 240 240 100 @ 20 mls/hr IV .Q24H [facility] Rx#:[id number] Pressure bag .9 27 Intake, IV Titration 54.483 64.438 Amount Heparin Sod,Pork in 0.45% 54.483 64.438 NaCl 25,000 unit In 0.45 % NaCl 1 250ml.bag @ 700 UNIT/HR 7 mls/hr IV .Q24H [facility] Rx#:[id number] Oral 480 240 Output: Chest Tube Drainage 360 190 140 Bilateral Mediastinal 180 120 70 Left Lateral Chest 180 70 70 Urine 430 900 250 Urine/Stool Mix 600 Other: Voiding Method Bedside Commode Bedside Commode Bedside Commode # Voids 1 0 0 # Bowel Movements 1 1 1 ABP, PAP, CO, CI - Last Documented Arterial Blood Pressure 168/38 Pulmonary Artery Pressure 20/11 Cardiac Output 4.4 Cardiac Index 2.6 - Exam GENERAL EXAM: 77-year-old white male,-asymptomatic, in no distress. HEAD: Normocephalic/atraumatic. EYES: PERRLA, EOMI, no icterus. NOSE: Clear with pink turbinates. THROAT: No erythema or exudates. NECK: No masses, no JVD, no thyroid enlargement, no adenopathy. Moist mucous membranes noted. CHEST: No chest wall deformity. Symmetrical chest expansion, chest tube noted. Mediastinal tube noted LUNGS: Equal air entry with no crackles, wheeze, rhonchi or dullness. CVS: Regular rate and rhythm, normal S1 and S2, no gallops, no murmurs, no rubs ABDOMEN: Soft, nontender. No hepatosplenomegaly, normal bowel sounds, no guarding or rigidity. EXTREMITIES: No clubbing, no edema, no cyanosis, 2+ pulses and upper and lower extremities. SCDs are in place on bilateral lower extremities MUSCULOSKELETAL: Muscle strength and tone normal. SPINE: No scoliosis or deformity SKIN: No rashes CENTRAL NERVOUS SYSTEM: Alert oriented 3, no gross focal neurologic deficits. - Labs CBC & Chem 7: 09/12/18 05:17 09/12/18 06:57 Labs: Abnormal Lab Results - Last 24 Hours (Table) 09/11/18 09/11/18 09/11/18 Range/Units 17:05 19:40 23:57 RBC (4.30-5.90) m/uL Hgb (13.0-17.5) gm/dL Hct (39.0-53.0) % Plt Count (150-450) k/uL APTT 39.1 H (22.0-30.0) sec Chloride (98-107) mmol/L Glucose (74-99) mg/dL POC Glucose (mg/dL) 120 H 123 H (75-99) mg/dL Calcium (8.4-10.2) mg/dL 09/12/18 09/12/18 09/12/18 Range/Units 05:17 06:53 06:57 RBC 3.17 L (4.30-5.90) m/uL Hgb 9.9 L (13.0-17.5) gm/dL Hct 31.6 L (39.0-53.0) % Plt Count 98 L (150-450) k/uL APTT 102.0 H* (22.0-30.0) sec Chloride (98-107) mmol/L Glucose (74-99) mg/dL POC Glucose (mg/dL) 153 H (75-99) mg/dL Calcium (8.4-10.2) mg/dL 09/12/18 09/12/18 Range/Units 06:57 11:44 RBC (4.30-5.90) m/uL Hgb (13.0-17.5) gm/dL Hct (39.0-53.0) % Plt Count (150-450) k/uL APTT (22.0-30.0) sec Chloride 108 H (98-107) mmol/L Glucose 138 H (74-99) mg/dL POC Glucose (mg/dL) 105 H (75-99) mg/dL Calcium 8.2 L (8.4-10.2) mg/dL Assessment and Plan Assessment: #1 Coronary artery disease with 99% stenosis involving the ostial portion of the left anterior descending artery, status post 2 vessel bypass grafting, with DAVE to LAD, and SVG to the diagonal branch, postop day #3 #2 Routine postoperative ventilator management #3 Postop blood loss anemia, an expected outcome of bypass surgery #4 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 #5 Diabetes mellitus. #6 Osteoarthritis. #7 Sleep apnea. #8 Remote history of chronic tobacco dependence. #9 postoperative atelectasis, expected after his CABG. #10 possible chylothorax, or pseudo chylothorax workup is pending on the pleural effusion which was sent for triglycerides and cholesterol. Recommendation: Continue present supportive care measures including oxygen, bronchodilators, incentive spirometry, continue cardiac meds including aspirin statins and Plavix beta blockers. Discussed his condition with cardiothoracic surgery on the case, no plans to transfer the patient out of the ICU, still concerned about the possibility of chylothorax, triglycerides on the fluid are pending. Chest x-ray was reviewed and discussed with the patient, patient was instructed to be more compliant with incentive spirometry, and we will continue to follow. Patient will remain in the ICU for today. Time with Patient: Less than 30
[2018-09-12] MEDS: RIVAROXABAN 20 MG TAB PO SCH (16:47)
[2018-09-12] MEDS: HEPARIN SOD,PORK IN 0.45% NACL 25,000 UNIT in 0.45% NACL 1 250ML.BAG IV SCH (16:55)
[2018-09-12 17:10] LABS: Glucose,Whole Blood 134 mg/dL (75-99)
--- NOTE | 2018-09-12 19:28 | PN ---
PROGRESS NOTE DATE OF SERVICE: 09/12/2018 This 77-year-old gentleman who was admitted after CAD, CABG is being closely monitored. No chest pain. No palpitations. No fever. Chest x-ray done today showed bibasilar bilateral atelectasis. The patient is doing incentive spirometry and bronchodilators. No chest pain. No palpitations. No fever. EXAM: Alert oriented x3. Pulse is 92, blood pressure 98/40, respiration 20, temperature 98.2, pulse ox 98% on room air. HEENT: Conjunctivae normal. Oral mucosa moist. NECK: No jugular venous distention. No lymph node enlargement. CARDIOVASCULAR: S1, S2. RESPIRATORY: Diminished breath sounds muffled at the bases. Scattered rhonchi, no crackles. ABDOMEN: Soft, nontender. LEGS: No swelling. NERVOUS SYSTEM: No focal deficits. LABS: WBC 7.2, hemoglobin 9.9. Accu-Cheks 134. ASSESSMENT: 1. Unstable angina, status post cardiac catheterization with 90% LAD stenosis, status post coronary artery bypass grafting. 2. Status post mechanical ventilation as expected after CABG. 3. Acute anemia, status post CABG as expected outcome. 4. Sleep apnea. 5. History of deep vein thrombosis. 6. History of nicotine dependence. 7. Diabetes mellitus type 2. RECOMMENDATIONS: Recommend to continue current management, incentive spirometer, bronchodilators. Closely follow with Pulmonary. Ensure oxygenation. Increase ambulation. The rest of the medications per Cardiothoracic surgery. Further recommendations to follow. MMODL / IJN: [id number] /
[2018-09-12 23:23] LABS: Glucose,Whole Blood 132 mg/dL (75-99)
[2018-09-12] MEDS: SENNOSIDES-DOCUSATE SODIUM 1 EACH TAB PO SCH (23:25)
[2018-09-13 05:42] LABS: Basophils # (A) 0.1 k/uL (0-0.2); Basophils % (A) 0 %; Eosinophils # (A) 0.2 k/uL (0-0.7); Eosinophils % (A) 1 %; HCT 30.1 % (39.0-53.0); HGB 9.8 gm/dL (13.0-17.5); Lymphocytes % (A) 9 %; MCH 30.9 pg (25.0-35.0); MCHC 32.4 g/dL (31.0-37.0); MCV 95.3 fL (80.0-100.0); Mean Platelet Volume 7.7; Monocytes # (A) 0.8 k/uL (0-1.0); Monocytes % (A) 8 %; Neutrophils # (A) 8.8 k/uL (1.3-7.7); Neutrophils % (A) 79 %; RBC 3.16 m/uL (4.30-5.90); WBC 11.2 k/uL (3.8-10.6)
[2018-09-13 05:51] LABS: Platelet Count 99 k/uL (150-450)
[2018-09-13 05:57] LABS: Anion Gap 9 mmol/L; Blood Urea Nitrogen 13 mg/dL (9-20); Calcium 7.9 mg/dL (8.4-10.2); Carbon Dioxide 26 mmol/L (22-30); Chloride 104 mmol/L (98-107); Glucose 140 mg/dL (74-99); Magnesium 2.1 mg/dL (1.6-2.3); Potassium 4.5 mmol/L (3.5-5.1); Sodium 139 mmol/L (137-145)
[2018-09-13 06:24] LABS: Glucose,Whole Blood 137 mg/dL (75-99)
[2018-09-13] MEDS: INSULIN ASPART 100 UNIT/ML 1 ML 10 ML VIAL SQ SCH ×6 (06:30→20:45)
[2018-09-13] MEDS: PANTOPRAZOLE 40 MG TABLET PO SCH (06:30)
[2018-09-13] MEDS ORDERED: FUROSEMIDE 10 MG/ML 2 ML VIAL IV ONE (07:30)
[2018-09-13] MEDS: INSULN ASP PRT/INSULIN ASPART 100 UNIT/ML 10 ML VIAL SQ SCH (07:43)
--- NOTE | 2018-09-13 08:30 | XR ---
EXAMINATION TYPE: XR chest 1V portable DATE OF EXAM: 09/13/2018 COMPARISON: 09/12/2018 HISTORY: Shortness of breath TECHNIQUE: Single frontal view of the chest is obtained. FINDINGS: There is redemonstration of patchy bibasilar airspace disease. Trace left pleural effusion is seen with resolution of the previously seen right pleural effusion. Left thoracostomy tube is pre sent. Small left apical pneumothorax measures approximately 1.2 cm in greatest apical pleural thickne ss. Mediastinal drains are noted. Osseous structures are grossly intact with moderate degenerative ch anges of the spine. IMPRESSION: Postoperative changes the chest with stable left-sided thoracostomy and small residual a pical pneumothorax. Unchanged bibasilar atelectasis.
[2018-09-13] MEDS: METOPROLOL TARTRATE 50 MG TAB PO SCH ×2 (08:41→20:38)
[2018-09-13] MEDS: ATORVASTATIN 80 MG TAB PO SCH (08:41)
[2018-09-13] MEDS: ASPIRIN 81 MG PO SCH (08:41)
[2018-09-13] MEDS: IPRATROPIUM-ALBUTEROL 3 ML NEB INHALATION SCH ×4 (08:52→20:48)
--- NOTE | 2018-09-13 09:46 | P.PN ---
Subjective Progress Note Date: 09/13/18 Principal diagnosis: Coronary artery disease, awaiting bypass surgery This is a very pleasant 77-year-old gentleman who follows with Dr. Molina as his primary care physician. 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 He had recently been having episodes of chest discomfort with exertion. Even walking out to his mailbox and back he would have to stop and rest until the pain subsided. He was seen and evaluated by Dr. Hood who directed him here to the emergency room on 09/02/2018. He had subsequently undergone cardiac catheterization and was found to have a 99% stenosis of the ostial portion of the left anterior descending artery. He does have a normal left ventricular systolic function. He was not a stent candidate and has been seen and evaluated by cardiothoracic surgery who are planning to do coronary artery bypass grafting on 09/08/2018. We are consulted for the same. The patient does have a 30 year pack per day smoking history however quit 30 years ago. He denies any history of COPD, emphysema or asthma. He is not utilizing any inhalers or oxygen in the outpatient setting. He has not been seen by a cage operator in the past. He is seen today in consultation on the selective care unit. He is currently awake and alert in no acute distress. He denies any chest discomfort currently. No shortness of breath, cough or congestion. No dizziness or lightheadedness. He does have preserved left ventricular systolic function with ejection fraction 55-60%. No valvular heart disease. White count 6.8. Hemoglobin 1213.3. Creatinine 0.73. FEV1 value greater than 2 L. Chest x-ray showed no acute cardiopulmonary process. Carotid Dopplers without significant stenosis. On 09/06/2018 patient seen in follow-up on selective care unit, he is in no distress, no dyspnea, did have a couple episodes of chest discomfort this morning, lasting under 5 minutes, continuously resolved, patient remains on heparin drip, and maintenance IV fluid. Room air pulse ox is 98%, afebrile. Lung sounds are clear to auscultation. Today's labs have been reviewed, and are unremarkable. No new chest x-rays today, she is preop PFT was reviewed, showed a mild restrictive defect. No acute complaints. Awaiting surgery on Thursday09/08/2017. Patient is seen today 09/07/2018 in follow-up on the selective care unit. He is currently sitting up in a chair at the bedside. He is awake and alert in no acute distress. He denies any chest pain, palpitations lightheadedness or dizziness. No shortness of breath, cough or congestion. He's been up ambulating without distress. Awaiting bypass surgery in the a.m. He is working well with the incentive spirometer pulling nearly 4 L. Obtaining good O2 saturations up to 100% on room air. Hemodynamically stable. Heparin drip continues. On 09/08/2018 patient seen in follow-up in the intensive care units status post coronary bypass grafting, with DAVE to LAD, and SVG to the diagonal branch. Patient sedated, intubated, on mechanical ventilator, current settings are assist-control mode with a rate of 12, tidal volume of 600, FiO2 of 50% and PEEP of 5. Postoperative blood gases showed pO2 of 394, pCO2 41, and pH of 7.41 , FiO2 was dropped down to 50%. CBC showed white blood count of 7.9, hemoglobin of 9.1, sodium of 141, potassium is 4.3, chloride is 112, BUN of 11, creatinine of 0.66. Lung sounds are clear to auscultation, midline incision is clean dry and intact, approximated, covered with surgical dressing, AV wires to an external pacemaker with a backup rate, patient is sinus rhythm with a rate of 71 BPM, blood pressures 119/60, PA pressures of 22/13, cardiac output is 12.9 , and cardiac index of 7.5. 2 mediastinal chest tubes with a proximal 110 cigarettes output in the Pleur-evac, and there is occasional mild air leak noted , left pleural chest tube with of 40 mL of sanguinous output. IV fluids include lactated Ringer's at a rate of 50, nitroglycerin at 5 mics per minute, Diprivan, Cleviprex at 2 mg/h, insulin to be started for blood sugar over 110. Patient is nonoliguric. Postop chest x-ray was reviewed by Dr. Moore, showed mediastinal drains, epicardial pacing leads, left-sided thoracostomy tube endotracheal tube NG tube Treichlers-Kimberly catheter in appropriate positions, no pneumothorax, or pulmonary vascular congestion. Left mid lung subsegmental atelectasis noted. On 09/13/2018 patient seen again in follow-up in the intensive care unit, currently on room air, IVs have been hep-locked. Patient is getting up with assistance to the commode, denies any distress, no difficulty breathing. Today' s chest x-ray has been reviewed with Dr. Mcfarland, and shows stable left-sided thoracostomy and and small residual apical pneumothorax, unchanged bibasilar atelectasis and small pleural effusions. This is postoperative day #5. Patient is doing well, still has the [address], left pleural and mediastinal, there has been 300 mL of serosanguineous and milky colored output from the mediastinal chest tube, which was suspicious for chylothorax, and 250 serosanguineous pleural fluid out of left pleural. Patient has been voiding. In -948 fluid balance over the last 24 hours, lung sounds are clear, diminished at the bases. Objective - Vital Signs Vital signs: Vital Signs Temp 98.9 F 09/13/18 08:00 Pulse 107 H 09/13/18 09:02 Resp 26 H 09/13/18 09:00 BP 132/52 09/13/18 09:00 Pulse Ox 100 09/13/18 09:00 Intake & Output 09/12/18 09/13/18 09/13/18 18:59 06:59 18:59 Intake Total 1015.071 380 Output Total 1005 60 Balance 10.071 320 Weight 85.4 kg 84 kg Intake: IV 140 260 Lactated Ringers 1,000 ml 140 260 @ 20 mls/hr IV .Q24H [facility] Rx#:[id number] Intake, IV Titration 115.071 Amount Heparin Sod,Pork in 0.45% 115.071 NaCl 25,000 unit In 0.45 % NaCl 1 250ml.bag @ 700 UNIT/HR 7 mls/hr IV .Q24H [facility] Rx#:[id number] Oral 760 120 Output: Chest Tube Drainage 230 60 Bilateral Mediastinal 140 10 Left Lateral Chest 90 50 Urine 775 0 Other: Voiding Method Bedside Commode Bedside Commode # Voids 0 1 # Bowel Movements 1 ABP, PAP, CO, CI - Last Documented Arterial Blood Pressure 168/38 Pulmonary Artery Pressure 20/11 Cardiac Output 4.4 Cardiac Index 2.6 - Exam GENERAL EXAM: Awake and alert, pleasant, 77-year-old white male, on room air, no distress HEAD: Normocephalic/atraumatic. EYES: Normal reaction of pupils, equal size. Conjunctiva pink, sclera white. NOSE: Clear with pink turbinates. THROAT: No erythema or exudates. NECK: No masses, no JVD, no thyroid enlargement, no adenopathy. CHEST: No chest wall deformity. Symmetrical expansion. Midsternal incision clean dry and intact, approximated, covered with a surgical dressing, 1 mediastinal and left pleural chest tubes are in place, connected to Pleur-evac and wall suction with moderate amount of sero-sanguinous output in the Pleur- evac's. Small air leak noted occasionally in the mediastinal Pleur-evac. LUNGS: Equal air entry with no crackles, wheeze, rhonchi or dullness. CVS: Regular rate and rhythm, normal S1 and S2, no gallops, no murmurs, no rubs ABDOMEN: Soft, nontender. No hepatosplenomegaly, normal bowel sounds, no guarding or rigidity. EXTREMITIES: No clubbing, no edema, no cyanosis, 2+ pulses and upper and lower extremities. SCDs are in place on bilateral lower extremities MUSCULOSKELETAL: Muscle strength and tone normal. SPINE: No scoliosis or deformity SKIN: No rashes CENTRAL NERVOUS SYSTEM: No focal deficits, tone is normal in all 4 extremities. - Labs CBC & Chem 7: 09/13/18 04:48 09/13/18 04:48 Labs: Abnormal Lab Results - Last 24 Hours (Table) 09/12/18 09/12/18 09/12/18 Range/Units 11:44 16:58 23:22 WBC (3.8-10.6) k/uL RBC (4.30-5.90) m/uL Hgb (13.0-17.5) gm/dL Hct (39.0-53.0) % Plt Count (150-450) k/uL Neutrophils # (1.3-7.7) k/uL Glucose (74-99) mg/dL POC Glucose (mg/dL) 105 H 134 H 132 H (75-99) mg/dL Calcium (8.4-10.2) mg/dL 09/13/18 09/13/18 09/13/18 Range/Units 04:48 04:48 06:22 WBC 11.2 H (3.8-10.6) k/uL RBC 3.16 L (4.30-5.90) m/uL Hgb 9.8 L (13.0-17.5) gm/dL Hct 30.1 L (39.0-53.0) % Plt Count 99 L (150-450) k/uL Neutrophils # 8.8 H (1.3-7.7) k/uL Glucose 140 H (74-99) mg/dL POC Glucose (mg/dL) 137 H (75-99) mg/dL Calcium 7.9 L (8.4-10.2) mg/dL Assessment and Plan Plan: Assessment: #1 Coronary artery disease with 99% stenosis involving the ostial portion of the left anterior descending artery, status post 2 vessel bypass grafting, with DAVE to LAD, and SVG to the diagonal branch, postop day 5 #2 Routine postoperative ventilator management #3 Postop blood loss anemia, an expected outcome of bypass surgery #4 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 #5 Diabetes mellitus. #6 Osteoarthritis. #7 Sleep apnea. #8 Remote history of chronic tobacco dependence. #9 postoperative atelectasis, expected outcome of bypass surgery #10 possible chylothorax, or pseudo-chylothorax workup is pending on the pleural effusion which was sent for triglycerides and cholesterol Plan: Patient is doing well, hemodynamically stable, no difficulty breathing, today's chest x-ray has been reviewed with Dr. Mitchell, and showed stable changes of left- sided thoracostomy and 6 small residual apical pneumothorax, mild bilateral pleural effusions and bibasilar atelectasis. We are awaiting the results of the total fluid triglycerides and cholesterol, which are being sent out today. Continue encouraging deep breathing and coughing, patient is requesting stable, on room air, awaiting a bed on selective care unit. I performed a history & physical examination of the patient and discussed their management with my nurse practitioner, Mago Thrasher. I reviewed the nurse practitioner's note and agree with the documented findings and plan of care. Lung sounds are positive for clear breath sounds. The findings and the impression was discussed with the patient. I attest to the documentation by the nurse practitioner. Time with Patient: Less than 30
--- NOTE | 2018-09-13 09:58 | P.PN ---
Subjective Progress Note Date: 09/13/18 Principal diagnosis: Coronary artery disease with ostial LAD stenosis 99%, diabetes with the preoperative hemoglobin A1c of 6.5%, skin cancer with removal, DVT left lower extremity in 2013 and right lower extremity in 2013 on chronic Xarelto for anticoagulation, recent left rotator cuff repair, previous tobacco dependence, COPD with preoperative FEV1 67% of predicted, obstructive sleep apnea without home CPAP use, peripheral vascular disease, and family history of early coronary artery disease with his father diagnosed at 52 years old. POD #5 coronary bypass grafting 2 vessels, left internal mammary artery to the left anterior descending artery, a reverse greater saphenous vein graft to the diagonal coronary artery. Endoscopic vein harvest, left greater saphenous vein from the thigh. Epi-aortic ultrasound and intraoperative transesophageal echocardiogram. Postoperative acute blood loss anemia, an expected outcome given cardiopulmonary bypass and hemodilution. The patient is sitting up to the bedside chair. He is in no acute distress. His bedside telemetry is showing sinus rhythm heart rate 96. He currently denies any complaints of pain or shortness of breath. Oxygen saturations 96% on room air and he is achieving 1000 mL on his incentive spirometry with encouragement. The patient remains with mediastinal and left pleural chest tubes. His mediastinal chest tubes and his left pleural fluid remaining in place and are draining thin serosanguineous drainage. No further milky drainage noted from his mediastinal chest tubes. The triglyceride levels of the pleural fluid results remaining pending. Patient reports that he is ambulating in the intensive care unit hallway with minimal assistance and he completed 3 walks yesterday. Objective - Vital Signs Vital signs: Vital Signs Temp 98.1 F 09/12/18 16:00 Pulse 89 09/13/18 04:00 Resp 16 09/13/18 04:00 BP 101/73 09/13/18 04:00 Pulse Ox 96 09/13/18 04:00 Intake & Output 09/12/18 09/13/18 09/13/18 18:59 06:59 18:59 Intake Total 1015.071 380 Output Total 1005 60 Balance 10.071 320 Weight 85.4 kg 84 kg Intake: IV 140 260 Lactated Ringers 1,000 ml 140 260 @ 20 mls/hr IV .Q24H [facility] Rx#:[id number] Intake, IV Titration 115.071 Amount Heparin Sod,Pork in 0.45% 115.071 NaCl 25,000 unit In 0.45 % NaCl 1 250ml.bag @ 700 UNIT/HR 7 mls/hr IV .Q24H [facility] Rx#:[id number] Oral 760 120 Output: Chest Tube Drainage 230 60 Bilateral Mediastinal 140 10 Left Lateral Chest 90 50 Urine 775 0 Other: Voiding Method Bedside Commode Bedside Commode # Voids 0 1 # Bowel Movements 1 ABP, PAP, CO, CI - Last Documented Arterial Blood Pressure 168/38 Pulmonary Artery Pressure 20/11 Cardiac Output 4.4 Cardiac Index 2.6 - Constitutional General appearance: Present: cooperative, no acute distress - Respiratory Details: Lung sounds with few scattered crackles throughout, diminished to his bilateral bases. Respirations are symmetrical and nonlabored. Oxygen saturation are 96% on room air. He is achieving 1000 mL on his incentive spirometry. Mediastinal and left pleural chest tubes remain in place to water seal. No air leak is present. Draining thin serosanguineous drainage. Mediastinal chest tubes drained 10 mL output in the last 8 hours, 230 mL output in the last 24 hours. Left pleural chest tube drained 50 mL output in the last 8 hours, 170 mL output in the last 24 hours. - Cardiovascular Details: Regular rhythm and rate. S1 and S2 present, negative for S3, gallop or murmur. Sternum is stable. Bedside telemetry showing normal sinus rhythm heart rate 96. Heart hugger is in place and he is demonstrating appropriate use. Knee- high JOSE hose and sequential compression devices in place to his bilateral lower extremities. +1 edema to his bilateral lower extremities. - Gastrointestinal Gastrointestinal Comment(s): Abdomen is soft, nontender and nondistended. Active bowel sounds to all 4 quadrants. Tolerating oral intake, no fat diet. Passing flatus. - Genitourinary Genitourinary Comment(s): Voiding clear yellow urine. 600 mL output in the last 8 hours. - Integumentary Integumentary Comment(s): Skin is warm and dry. No clubbing or cyanosis present. Midline sternal incision is clean, dry and approximated. No drainage or redness is present. Gauze dressing to sternal incision clean and dry. Left lower extremity EVH sites are clean, dry and approximated. No drainage or redness present. - Neurologic Neurologic: Present: CNII-XII intact - Musculoskeletal Musculoskeletal: Present: gait normal, generalized weakness, strength equal bilaterally - Psychiatric Psychiatric: Present: A&O x's 3, appropriate affect, intact judgment & insight - Allied health notes Allied health notes reviewed: nursing - Labs CBC & Chem 7: 09/13/18 04:48 09/13/18 04:48 Labs: Abnormal Lab Results - Last 24 Hours (Table) 09/12/18 09/12/18 09/12/18 Range/Units 11:44 16:58 23:22 WBC (3.8-10.6) k/uL RBC (4.30-5.90) m/uL Hgb (13.0-17.5) gm/dL Hct (39.0-53.0) % Plt Count (150-450) k/uL Neutrophils # (1.3-7.7) k/uL Glucose (74-99) mg/dL POC Glucose (mg/dL) 105 H 134 H 132 H (75-99) mg/dL Calcium (8.4-10.2) mg/dL 09/13/18 09/13/18 09/13/18 Range/Units 04:48 04:48 06:22 WBC 11.2 H (3.8-10.6) k/uL RBC 3.16 L (4.30-5.90) m/uL Hgb 9.8 L (13.0-17.5) gm/dL Hct 30.1 L (39.0-53.0) % Plt Count 99 L (150-450) k/uL Neutrophils # 8.8 H (1.3-7.7) k/uL Glucose 140 H (74-99) mg/dL POC Glucose (mg/dL) 137 H (75-99) mg/dL Calcium 7.9 L (8.4-10.2) mg/dL - Imaging and Cardiology Chest x-ray: report reviewed, image reviewed Assessment and Plan (1) History of DVT (deep vein thrombosis) Current Visit: Yes Status: Acute Code(s): Z86.718 - PERSONAL HISTORY OF OTHER VENOUS THROMBOSIS AND EMBOLISM SNOMED Code(s): 919900156 (2) Obstructive sleep apnea Current Visit: Yes Status: Acute Code(s): G47.33 - OBSTRUCTIVE SLEEP APNEA ( ADULT) (PEDIATRIC) SNOMED Code(s): 03010263 (3) COPD (chronic obstructive pulmonary disease) Current Visit: Yes Status: Acute Code(s): J44.9 - CHRONIC OBSTRUCTIVE PULMONARY DISEASE, UNSPECIFIED SNOMED Code(s): 47384988 (4) Unstable angina pectoris Current Visit: Yes Status: Acute Code(s): I20.0 - UNSTABLE ANGINA SNOMED Code(s): 3139054 (5) Chronic anticoagulation Current Visit: Yes Status: Chronic Code(s): Z79.01 - EARTHMOVING LABOURER (CURRENT) USE OF ANTICOAGULANTS SNOMED Code(s): 753443379 (6) Coronary artery disease Current Visit: Yes Status: Chronic Code(s): I25.10 - ATHSCL HEART DISEASE OF [place] CORONARY ARTERY W/O ANG PCTRS SNOMED Code(s): 54122596 (7) Diabetes mellitus Current Visit: Yes Status: Chronic Code(s): E11.9 - TYPE 2 DIABETES MELLITUS WITHOUT COMPLICATIONS SNOMED Code(s): 58584364 (8) Family history of premature CAD Current Visit: Yes Status: Chronic Code(s): Z82.49 - FAMILY HX OF ISCHEM HEART DIS AND OTH DIS OF THE CIRC SYS SNOMED Code(s): 379530292 (9) History of skin cancer Current Visit: No Status: Resolved Code(s): Z85.828 - PERSONAL HISTORY OF OTHER MALIGNANT NEOPLASM OF SKIN SNOMED Code(s): 059118792 (10) Tobacco dependence in remission Current Visit: No Status: Resolved Code(s): F17.201 - NICOTINE DEPENDENCE, UNSPECIFIED, IN REMISSION SNOMED Code(s): 256986306 (11) Hypertension Current Visit: Yes Status: Acute Code(s): I10 - ESSENTIAL (PRIMARY) HYPERTENSION SNOMED Code(s): 08461411 Plan: 1. Continue low-dose aspirin, statin, and beta marline. Will increase his metoprolol tartrate 100 mg by mouth twice a day. 2. Remove mediastinal chest tubes today and keep left pleural chest tubes in place for [facility]. 3. Continue Xarelto, history of bilateral lower extremity DVTs. 4. Wean O2 as tolerated. Encourage incentive spirometry use, 10 times every hour while awake. 5. Increase activity, ambulate as tolerated. PT/OT/cardiac rehab following. 6. Will monitor daily labs and x-rays. Electrolyte replacement per protocol. We will monitor his platelet count, platelet count today is 99,000. Hit assay pending. 7. Pain control with current medication regimen. 8. Insulin management per primary care service. 9. GI prophylaxis with Protonix, DVT prophylaxis with Xarelto and SCDs. 10. Encourage continued smoking cessation. 11. Pleural fluid for triglyceride levels is pending. 12. Continue no fat diet, possible chylothorax. 13. We will transfer the patient to 3 self cardiac care stepdown unit when a bed is available. 14. Lasix 20 mg IV [address] Ceja's consult noted and appreciated. Patient may require inpatient rehab upon discharge. 16. More recommendations to follow based on his clinical course. Time with Patient: Greater than 30
[2018-09-13 12:11] LABS: Glucose,Whole Blood 113 mg/dL (75-99)
[2018-09-13] MEDS: LISINOPRIL 5 MG TAB PO SCH (12:17)
--- NOTE | 2018-09-13 15:16 | PN ---
PROGRESS NOTE Cornelius is a 77-year-old gentleman with history of coronary artery disease, status post CABG with DAVE to LAD and venous graft to diagonal. Possible chylothorax which is improving. The patient this morning is doing well. Remains in sinus rhythm, free of cardiac symptoms. On exam heart rate is 90 beats per minute, blood pressure is 132/50, respirations 18. Chest exam reveals diminished air entry at the bases. Heart exam reveals first and second heart sounds, no gallop. Exam of the extremities did not reveal any edema. Peripheral pulses are felt. The patient is currently on Zestril, Lopressor 100 b.i.d., Xarelto which he had been on for history of coagulopathy and Lipitor. ASSESSMENT: Coronary artery disease status post CABG. PLAN: Patient will continue with the medications. Once the chest tubes are out he can be transferred out. OTILIO / BIBI: [id number] /
--- NOTE | 2018-09-13 15:53 | XR ---
EXAMINATION TYPE: XR chest 1V portable DATE OF EXAM: 09/13/2018 COMPARISON: Prior chest x-ray same dated earlier time HISTORY: Pneumothorax, chest tube TECHNIQUE: Single frontal view of the chest is obtained. FINDINGS: Left-sided chest tube remains in place. There are overlying cardiac leads. Difficult to ex clude minimal apical pneumothorax on the left. Patient is post median sternotomy and rotated. There i s some persistent blunting of the right costophrenic angle. Heart size is stable. IMPRESSION: Findings are similar to prior exam.
--- NOTE | 2018-09-13 16:19 | CONS ---
CONSULTATION This patient is status post coronary artery bypass surgery. The patient's electronic medical records, vital signs and lab tests reviewed. The patient is sitting up at the bedside chair without any acute distress. The patient is having mild discomfort at the site of the chest tubes. Oxygen saturation is 97%. He did walk in the intensive care unit in the hallway with assistance. The patient's blood pressure is 116/44 mmHg, heart rate is 98 per minute, respiratory rate is 20. Patient is afebrile. First and second heart sounds are normal. Lungs examination reveals bilateral scattered wheezes. The patient's urine output is fair. Electrolytes are normal. Creatinine is 0.79. IMPRESSION: Status post coronary artery bypass surgery. Patient at present persists to have a chest tubes. The patient's Xarelto needs to be restarted as soon as possible after the tubes are removed. MMODL / IJN: [id number] /
--- NOTE | 2018-09-13 16:19 | CONS ---
CONSULTATION DATE OF SERVICE: 09/12/2018 This patient is status post coronary artery bypass surgery. Patient's electronic medical records reviewed. The patient has remained stable over the last 24 hours. He is lying comfortably in the bed. He continues to have significant drainage from the chest tube which appears to be thorax. The patient is not in any respiratory distress. No dysrhythmias are noted. Heart rate is 82 per minute, blood pressure is 109/47 mmHg. First and second heart sounds are heard. Lungs reveal a few scattered wheezes. The patient's electrolytes are normal. Hemoglobin is 9.9. Creatinine is 0.69. We will continue the patient on current medications. MMODL / IJN: [id number] /
[2018-09-13 17:08] LABS: Glucose,Whole Blood 138 mg/dL (75-99)
[2018-09-13] MEDS: RIVAROXABAN 20 MG TAB PO SCH (17:50)
--- NOTE | 2018-09-13 19:20 | PN ---
PROGRESS NOTE DATE OF SERVICE: 09/13/2018 This 77-year-old gentleman who was admitted with unstable angina, had a cardiac catheterization with 90% LAD stenosis. Subsequently patient had a CABG. Patient is improving significantly. The chest tube has been removed and a chest x-ray showed findings similar to previous. No chest pain. No palpitations. No fever. EXAM: Alert and oriented x3. Pulse 92, blood pressure 130/80, respirations 16, temperature is normal, pulse ox 98% on room air. HEENT: Conjunctivae normal. Oral mucosa moist. NECK: No jugular venous distention. No lymph node enlargement. CARDIOVASCULAR: S1, S2. RESPIRATORY: Diminished breath sounds muffled at the bases. Bilateral scattered rhonchi and crackles. ABDOMEN: Soft, nontender. LEGS: No swelling. NERVOUS SYSTEM: No focal deficits. LAB STUDIES: WBC 11.7, hemoglobin 9.8. Accu-Cheks 138. ASSESSMENT: 1. Unstable angina status post cardiac catheterization with 90% LAD stenosis, status post CABG. 2. Status post a mechanical ventilation as expected after CABG. 3. Acute anemia, status post CABG as expected outcome. 4. Sleep apnea. 5. History of DVT. 6. History of nicotine dependence. 7. Diabetes mellitus type 2. RECOMMENDATIONS: Continue current medications, continue symptomatic treatment. Monitor pressures closely. Incentive spirometry. Continue the rest of medications. Closely follow with Cardiology. Continue the beta blockers, aspirin. Further recommendations to follow. MMCARLY / LOREN: [id number] / MTDD
[2018-09-13] MEDS: SENNOSIDES-DOCUSATE SODIUM 1 EACH TAB PO SCH (20:39)
[2018-09-13 20:42] LABS: Glucose,Whole Blood 102 mg/dL (75-99)
[2018-09-14 05:38] LABS: Basophils % (A) 0 %; Eosinophils # (A) 0.4 k/uL (0-0.7); Eosinophils % (A) 2 %; HCT 29.5 % (39.0-53.0); Lymphocytes # (A) 1.4 k/uL (1.0-4.8); Lymphocytes % (A) 8 %; MCH 32.2 pg (25.0-35.0); MCHC 33.9 g/dL (31.0-37.0); MCV 94.8 fL (80.0-100.0); Mean Platelet Volume 8.5; Monocytes # (A) 1.1 k/uL (0-1.0); Monocytes % (A) 6 %; Neutrophils # (A) 13.6 k/uL (1.3-7.7); Neutrophils % (A) 81 %; Platelet Count 144 k/uL (150-450); RBC 3.11 m/uL (4.30-5.90); RDW 14.3 % (11.5-15.5); WBC 16.8 k/uL (3.8-10.6)
[2018-09-14 06:10] LABS: Anion Gap 7 mmol/L; Blood Urea Nitrogen 14 mg/dL (9-20); Calcium 8.1 mg/dL (8.4-10.2); Carbon Dioxide 28 mmol/L (22-30); Chloride 105 mmol/L (98-107); Glucose 155 mg/dL (74-99); Magnesium 2.2 mg/dL (1.6-2.3); Potassium 4.2 mmol/L (3.5-5.1); Sodium 140 mmol/L (137-145)
[2018-09-14 07:00] LABS: Glucose,Whole Blood 158 mg/dL (75-99)
[2018-09-14] MEDS: INSULIN ASPART 100 UNIT/ML 1 ML 10 ML VIAL SQ SCH ×5 (07:19→21:51)
[2018-09-14] MEDS: INSULN ASP PRT/INSULIN ASPART 100 UNIT/ML 10 ML VIAL SQ SCH (07:20)
[2018-09-14] MEDS: ATORVASTATIN 80 MG TAB PO SCH (08:05)
[2018-09-14] MEDS: METOPROLOL TARTRATE 50 MG TAB PO SCH (08:05)
[2018-09-14] MEDS: PANTOPRAZOLE 40 MG TABLET PO SCH (08:05)
[2018-09-14] MEDS: ASPIRIN 81 MG PO SCH (08:05)
--- NOTE | 2018-09-14 08:32 | XR ---
EXAMINATION TYPE: XR chest 1V portable DATE OF EXAM: 09/14/2018 COMPARISON: 03/26/2019 INDICATION: Postoperative CABG TECHNIQUE: Single frontal view of the chest is obtained. FINDINGS: The heart size is normal. The pulmonary vasculature is normal. Mild bibasilar infiltrates are present, likely basis of subsegmental atelectasis There is a left-sided chest tube. Small left apical thorax may be present. This is estimated at 10%, slightly larger than the prior exam. IMPRESSION: 1. Small left apical pneumothorax. 2. Left-sided chest tube. 3. Bibasilar atelectasis.
--- NOTE | 2018-09-14 08:58 | P.PN ---
Subjective Progress Note Date: 09/14/18 Principal diagnosis: Coronary artery disease, awaiting bypass surgery This is a very pleasant 77-year-old gentleman who follows with Dr. Molina as his primary care physician. 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 He had recently been having episodes of chest discomfort with exertion. Even walking out to his mailbox and back he would have to stop and rest until the pain subsided. He was seen and evaluated by Dr. Hood who directed him here to the emergency room on 09/02/2018. He had subsequently undergone cardiac catheterization and was found to have a 99% stenosis of the ostial portion of the left anterior descending artery. He does have a normal left ventricular systolic function. He was not a stent candidate and has been seen and evaluated by cardiothoracic surgery who are planning to do coronary artery bypass grafting on 09/08/2018. We are consulted for the same. The patient does have a 30 year pack per day smoking history however quit 30 years ago. He denies any history of COPD, emphysema or asthma. He is not utilizing any inhalers or oxygen in the outpatient setting. 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 He is seen today in consultation on the selective care unit. He is currently awake and alert in no acute distress. He denies any chest discomfort currently. No shortness of breath, cough or congestion. No dizziness or lightheadedness. He does have preserved left ventricular systolic function with ejection fraction 55-60%. No valvular heart disease. White count 6.8. Hemoglobin 1213.3. Creatinine 0.73. FEV1 value greater than 2 L. Chest x-ray showed no acute cardiopulmonary process. Carotid Dopplers without significant stenosis. On 09/06/2018 patient seen in follow-up on selective care unit, he is in no distress, no dyspnea, did have a couple episodes of chest discomfort this morning, lasting under 5 minutes, continuously resolved, patient remains on heparin drip, and maintenance IV fluid. Room air pulse ox is 98%, afebrile. Lung sounds are clear to auscultation. Today's labs have been reviewed, and are unremarkable. No new chest x-rays today, she is preop PFT was reviewed, showed a mild restrictive defect. No acute complaints. Awaiting surgery on Thursday09/08/2017. Patient is seen today 09/07/2018 in follow-up on the selective care unit. He is currently sitting up in a chair at the bedside. He is awake and alert in no acute distress. He denies any chest pain, palpitations lightheadedness or dizziness. No shortness of breath, cough or congestion. He's been up ambulating without distress. Awaiting bypass surgery in the a.m. He is working well with the incentive spirometer pulling nearly 4 L. Obtaining good O2 saturations up to 100% on room air. Hemodynamically stable. Heparin drip continues. On 09/08/2018 patient seen in follow-up in the intensive care units status post coronary bypass grafting, with DAVE to LAD, and SVG to the diagonal branch. Patient sedated, intubated, on mechanical ventilator, current settings are assist-control mode with a rate of 12, tidal volume of 600, FiO2 of 50% and PEEP of 5. Postoperative blood gases showed pO2 of 394, pCO2 41, and pH of 7.41 , FiO2 was dropped down to 50%. CBC showed white blood count of 7.9, hemoglobin of 9.1, sodium of 141, potassium is 4.3, chloride is 112, BUN of 11, creatinine of 0.66. Lung sounds are clear to auscultation, midline incision is clean dry and intact, approximated, covered with surgical dressing, AV wires to an external pacemaker with a backup rate, patient is sinus rhythm with a rate of 71 BPM, blood pressures 119/60, PA pressures of 22/13, cardiac output is 12.9 , and cardiac index of 7.5. 2 mediastinal chest tubes with a proximal 110 cigarettes output in the Pleur-evac, and there is occasional mild air leak noted , left pleural chest tube with of 40 mL of sanguinous output. IV fluids include lactated Ringer's at a rate of 50, nitroglycerin at 5 mics per minute, Diprivan, Cleviprex at 2 mg/h, insulin to be started for blood sugar over 110. Patient is nonoliguric. Postop chest x-ray was reviewed by Dr. Moore, showed mediastinal drains, epicardial pacing leads, left-sided thoracostomy tube endotracheal tube NG tube [place] catheter in appropriate positions, no pneumothorax, or pulmonary vascular congestion. Left mid lung subsegmental atelectasis noted. On 09/13/2018 patient seen again in follow-up in the intensive care unit, currently on room air, IVs have been hep-locked. Patient is getting up with assistance to the commode, denies any distress, no difficulty breathing. Today' s chest x-ray has been reviewed with Dr. Mcfarland, and shows stable left-sided thoracostomy and and small residual apical pneumothorax, unchanged bibasilar atelectasis and small pleural effusions. This is postoperative day #5. Patient is doing well, still has the [address], left pleural and mediastinal, there has been 300 mL of serosanguineous and milky colored output from the mediastinal chest tube, which was suspicious for chylothorax, and 250 serosanguineous pleural fluid out of left pleural. Patient has been voiding. In -948 fluid balance over the last 24 hours, lung sounds are clear, diminished at the bases. On September 2018 patient seen in follow-up in the intensive care unit, awake and alert, in no acute distress, on room air, no running IVs, IVs have been hep- locked, lung sounds are clear to auscultation, patient is working on his incentive spirometer, he has been ambulating, in no distress. Today's labs have been reviewed, the PVC 16.8, hemoglobin is 10.0, electrolytes and renal profile are within normal limits. Today's chest x-ray has been reviewed with Dr. Mcfarland, shows small left apical pneumothorax estimated to be at 10%, left- sided chest tube in place, he still chest tube has been discontinued by CT surgery yesterday, pleural fluid triglycerides levels have been ordered, and this is secondary test, is not resulted yet. Patient is awaiting a bed on selective care unit, no specific complaints. Objective - Vital Signs Vital signs: Vital Signs Temp 98.8 F 09/14/18 04:00 Pulse 86 09/14/18 04:00 Resp 20 09/14/18 04:00 BP 138/59 09/14/18 04:00 Pulse Ox 99 09/14/18 04:00 Intake & Output 09/13/18 09/14/18 09/14/18 18:59 06:59 18:59 Intake Total 450 Output Total 800 220 850 Balance -350 -220 -850 Weight 84.2 kg Intake: Oral 450 Output: Chest Tube Drainage 100 20 Bilateral Mediastinal 50 Left Lateral Chest 50 20 Urine 700 200 850 Other: Voiding Method Bedside Commode Bedside Commode # Voids 1 # Bowel Movements 1 ABP, PAP, CO, CI - Last Documented Arterial Blood Pressure 168/38 Pulmonary Artery Pressure 20/11 Cardiac Output 4.4 Cardiac Index 2.6 - Exam GENERAL EXAM: Awake and alert, pleasant, 77-year-old white male, on room air, no distress HEAD: Normocephalic/atraumatic. EYES: Normal reaction of pupils, equal size. Conjunctiva pink, sclera white. NOSE: Clear with pink turbinates. THROAT: No erythema or exudates. NECK: No masses, no JVD, no thyroid enlargement, no adenopathy. CHEST: No chest wall deformity. Symmetrical expansion. Midsternal incision clean dry and intact, approximated, covered with a surgical dressing, mediastinal chest tube has been discontinued, left pleural chest tube remains in place with the thin serosanguineous output. LUNGS: Equal air entry with no crackles, wheeze, rhonchi or dullness. CVS: Regular rate and rhythm, normal S1 and S2, no gallops, no murmurs, no rubs ABDOMEN: Soft, nontender. No hepatosplenomegaly, normal bowel sounds, no guarding or rigidity. EXTREMITIES: No clubbing, no edema, no cyanosis, 2+ pulses and upper and lower extremities. SCDs are in place on bilateral lower extremities MUSCULOSKELETAL: Muscle strength and tone normal. SPINE: No scoliosis or deformity SKIN: No rashes CENTRAL NERVOUS SYSTEM: No focal deficits, tone is normal in all 4 extremities. - Labs CBC & Chem 7: 09/14/18 05:15 09/14/18 05:15 Labs: Abnormal Lab Results - Last 24 Hours (Table) 09/13/18 09/13/18 09/13/18 Range/Units 12:09 17:07 20:41 WBC (3.8-10.6) k/uL RBC (4.30-5.90) m/uL Hgb (13.0-17.5) gm/dL Hct (39.0-53.0) % Plt Count (150-450) k/uL Neutrophils # (1.3-7.7) k/uL Monocytes # (0-1.0) k/uL Glucose (74-99) mg/dL POC Glucose (mg/dL) 113 H 138 H 102 H (75-99) mg/dL Calcium (8.4-10.2) mg/dL 09/14/18 09/14/18 09/14/18 Range/Units 05:15 05:15 06:58 WBC 16.8 H (3.8-10.6) k/uL RBC 3.11 L (4.30-5.90) m/uL Hgb 10.0 L (13.0-17.5) gm/dL Hct 29.5 L (39.0-53.0) % Plt Count 144 L (150-450) k/uL Neutrophils # 13.6 H (1.3-7.7) k/uL Monocytes # 1.1 H (0-1.0) k/uL Glucose 155 H (74-99) mg/dL POC Glucose (mg/dL) 158 H (75-99) mg/dL Calcium 8.1 L (8.4-10.2) mg/dL Assessment and Plan Plan: Assessment: #1 Coronary artery disease with 99% stenosis involving the ostial portion of the left anterior descending artery, status post 2 vessel bypass grafting, with DAVE to LAD, and SVG to the diagonal branch, postop day 6 #2 Routine postoperative ventilator management #3 Postop blood loss anemia, an expected outcome of bypass surgery #4 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 #5 Diabetes mellitus. #6 Osteoarthritis. #7 Sleep apnea. #8 Remote history of chronic tobacco dependence. #9 postoperative atelectasis, expected outcome of bypass surgery #10 possible chylothorax, or pseudo-chylothorax workup is pending on the pleural effusion which was sent for triglycerides and cholesterol Plan: Patient is stable, no specific complaints, patient has been tolerating ambulation, he is on room air, IVs have been hep-locked, lung sounds are clear. Today's chest x-ray has been reviewed with Dr. Mitchell, shows some bibasilar atelectasis, small left apical pneumothorax estimated to be at 10%, left pleural chest tube remains in place, mediastinal chest tube has been discontinued. Pleural fluid triglycerides are pending. Awaiting a bed on selective care unit, we'll continue to follow. I performed a history & physical examination of the patient and discussed their management with my nurse practitioner, Mago Thrasher. I reviewed the nurse practitioner's note and agree with the documented findings and plan of care. Lung sounds are positive for clear breath sounds. The findings and the impression was discussed with the patient. I attest to the documentation by the nurse practitioner. Time with Patient: Less than 30
[2018-09-14] MEDS: IPRATROPIUM-ALBUTEROL 3 ML NEB INHALATION SCH ×4 (09:01→21:00)
[2018-09-14] MEDS: TAMSULOSIN 0.4 MG CAP.ER.24H PO SCH (09:44)
[2018-09-14 09:46] LABS: Appearance,Urine Clear (Clear); Bilirubin,Urine Negative (Negative); Blood,Urine Negative (Negative); Color,Urine Yellow; Glucose,Urine (UA) 2+ (Negative); Hyaline Casts,Urine 1 /lpf (0-2); Ketones,Urine Negative (Negative); Leukocyte Esterase,Urine Small (Negative); Nitrite,Urine Negative (Negative); PH, Urine 6.5 (5.0-8.0); Protein,Urine Negative (Negative); Specific Gravity,Urine 1.008 (1.001-1.035); Urobilinogen,Urine <2.0 mg/dL (<2.0)
[2018-09-14 11:54] LABS: Glucose,Whole Blood 145 mg/dL (75-99)
[2018-09-14] MEDS: LISINOPRIL 5 MG TAB PO SCH (12:15)
--- NOTE | 2018-09-14 12:39 | P.PN ---
Subjective Progress Note Date: 09/14/18 Principal diagnosis: Coronary artery disease with ostial LAD stenosis 99%, diabetes with the preoperative hemoglobin A1c of 6.5%, skin cancer with removal, DVT left lower extremity in 2012 and right lower extremity in 2013 on chronic Xarelto for anticoagulation, recent left rotator cuff repair, previous tobacco dependence, COPD with preoperative FEV1 67% of predicted, obstructive sleep apnea without home CPAP use, peripheral vascular disease, and family history of early coronary artery disease with his father diagnosed at 52 years old. POD #6 coronary bypass grafting 2 vessels, left internal mammary artery to the left anterior descending artery, a reverse greater saphenous vein graft to the diagonal coronary artery. Endoscopic vein harvest, left greater saphenous vein from the thigh. Epi-aortic ultrasound and intraoperative transesophageal echocardiogram. Postoperative acute blood loss anemia, an expected outcome given cardiopulmonary bypass and hemodilution. The patient is sitting up to the bedside chair. He is in no acute distress. His bedside telemetry is showing sinus rhythm heart rate 96. He currently denies any complaints of pain or shortness of breath. Oxygen saturations 99% on room air and he is achieving 1000 mL on his incentive spirometry with encouragement. The patient remains with a left pleural chest tubes which remains to water seal and is draining thin serosanguineous drainage. The patient continues to work with physical and occupational therapy and has been ambulating in the intensive care unit hallway with minimal assistance. He remains afebrile. His WBC count today is 16.8 and he has been encouraged to use his incentive spirometry every hour while awake. Objective - Vital Signs Vital signs: Vital Signs Temp 98.8 F 09/14/18 04:00 Pulse 86 09/14/18 04:00 Resp 20 09/14/18 04:00 BP 138/59 09/14/18 04:00 Pulse Ox 99 09/14/18 04:00 Intake & Output 09/13/18 09/14/18 09/14/18 18:59 06:59 18:59 Intake Total 450 Output Total 800 220 850 Balance -350 -220 -850 Weight 84.2 kg Intake: Oral 450 Output: Chest Tube Drainage 100 20 Bilateral Mediastinal 50 Left Lateral Chest 50 20 Urine 700 200 850 Other: Voiding Method Bedside Commode Bedside Commode # Voids 1 # Bowel Movements 1 ABP, PAP, CO, CI - Last Documented Arterial Blood Pressure 168/38 Pulmonary Artery Pressure 20/11 Cardiac Output 4.4 Cardiac Index 2.6 - Constitutional General appearance: Present: cooperative, no acute distress - Respiratory Details: Lungs sounds essentially clear throughout, few scattered crackles to his left lower lobe. Respirations are symmetrical and nonlabored. Oxygen saturation are 99% on room air. Achieving 1000 mL on his incentive spirometry. Left pleural chest tube remains in place to water seal. No air leak is present. Draining thin serosanguineous drainage. 20 mL output in the last 8 hours, 160 mL output in the last 24 hours. - Cardiovascular Details: Regular rhythm and rate. S1 and S2 present, negative for S3, gallop or murmur. Sternum is stable. Bedside telemetry showing normal sinus rhythm heart rate 96. Heart hugger is in place and he is demonstrating appropriate use with reminding. Knee-high JOSE hose and sequential compression devices in place to his bilateral lower extremities. Trace edema to his bilateral lower extremities. - Gastrointestinal Gastrointestinal Comment(s): Abdomen soft, nontender and nondistended. Active bowel sounds all 4 abdominal quadrants. Tolerating oral intake. Bowel movement this a.m. - Genitourinary Genitourinary Comment(s): Voiding clear yellow urine. 1050 mL output in the last 8 hours. - Integumentary Integumentary Comment(s): Skin is warm and dry. No clubbing or cyanosis is present. Midline sternal incision is clean, dry and approximated. No drainage or redness is present. Gauze dressing is clean, dry and intact. Left lower extremity EVH site clean, dry and approximated. No drainage or redness present. - Neurologic Neurologic: Present: CNII-XII intact - Musculoskeletal Musculoskeletal: Present: gait normal, generalized weakness, strength equal bilaterally - Psychiatric Psychiatric: Present: A&O x's 3, appropriate affect, intact judgment & insight - Allied health notes Allied health notes reviewed: nursing - Labs CBC & Chem 7: 09/14/18 05:15 09/14/18 05:15 Labs: Abnormal Lab Results - Last 24 Hours (Table) 09/13/18 09/13/18 09/13/18 Range/Units 12:09 17:07 20:41 WBC (3.8-10.6) k/uL RBC (4.30-5.90) m/uL Hgb (13.0-17.5) gm/dL Hct (39.0-53.0) % Plt Count (150-450) k/uL Neutrophils # (1.3-7.7) k/uL Monocytes # (0-1.0) k/uL Glucose (74-99) mg/dL POC Glucose (mg/dL) 113 H 138 H 102 H (75-99) mg/dL Calcium (8.4-10.2) mg/dL 09/14/18 09/14/18 09/14/18 Range/Units 05:15 05:15 06:58 WBC 16.8 H (3.8-10.6) k/uL RBC 3.11 L (4.30-5.90) m/uL Hgb 10.0 L (13.0-17.5) gm/dL Hct 29.5 L (39.0-53.0) % Plt Count 144 L (150-450) k/uL Neutrophils # 13.6 H (1.3-7.7) k/uL Monocytes # 1.1 H (0-1.0) k/uL Glucose 155 H (74-99) mg/dL POC Glucose (mg/dL) 158 H (75-99) mg/dL Calcium 8.1 L (8.4-10.2) mg/dL - Imaging and Cardiology Chest x-ray: report reviewed, image reviewed Assessment and Plan (1) History of DVT (deep vein thrombosis) Current Visit: Yes Status: Acute Code(s): Z86.718 - PERSONAL HISTORY OF OTHER VENOUS THROMBOSIS AND EMBOLISM SNOMED Code(s): 175159307 (2) Obstructive sleep apnea Current Visit: Yes Status: Acute Code(s): G47.33 - OBSTRUCTIVE SLEEP APNEA ( ADULT) (PEDIATRIC) SNOMED Code(s): 63593628 (3) COPD (chronic obstructive pulmonary disease) Current Visit: Yes Status: Acute Code(s): J44.9 - CHRONIC OBSTRUCTIVE PULMONARY DISEASE, UNSPECIFIED SNOMED Code(s): 35936329 (4) Unstable angina pectoris Current Visit: Yes Status: Acute Code(s): I20.0 - UNSTABLE ANGINA SNOMED Code(s): 3582274 (5) Chronic anticoagulation Current Visit: Yes Status: Chronic Code(s): Z79.01 - FPC (CURRENT) USE OF ANTICOAGULANTS SNOMED Code(s): 509169891 (6) Coronary artery disease Current Visit: Yes Status: Chronic Code(s): I25.10 - ATHSCL HEART DISEASE OF [place] CORONARY ARTERY W/O ANG PCTRS SNOMED Code(s): 65085146 (7) Diabetes mellitus Current Visit: Yes Status: Chronic Code(s): E11.9 - TYPE 2 DIABETES MELLITUS WITHOUT COMPLICATIONS SNOMED Code(s): 21657686 (8) Family history of premature CAD Current Visit: Yes Status: Chronic Code(s): Z82.49 - FAMILY HX OF ISCHEM HEART DIS AND OTH DIS OF THE CIRC SYS SNOMED Code(s): 334657355 (9) History of skin cancer Current Visit: No Status: Resolved Code(s): Z85.828 - PERSONAL HISTORY OF OTHER MALIGNANT NEOPLASM OF SKIN SNOMED Code(s): 503122145 (10) Tobacco dependence in remission Current Visit: No Status: Resolved Code(s): F17.201 - NICOTINE DEPENDENCE, UNSPECIFIED, IN REMISSION SNOMED Code(s): 874635173 (11) Hypertension Current Visit: Yes Status: Acute Code(s): I10 - ESSENTIAL (PRIMARY) HYPERTENSION SNOMED Code(s): 18111412 Plan: 1. Continue low-dose aspirin, statin, KAYLEN inhibitor and beta marline. Will increase his metoprolol tartrate as tolerated. 2. Remove left pleural chest tube today. 3. Continue Xarelto, history of bilateral lower extremity DVTs. 4. Encourage incentive spirometry use, 10 times every hour while awake. 5. Increase activity, ambulate as tolerated. PT/OT/cardiac rehab following. 6. Will monitor daily labs and x-rays. Electrolyte replacement per protocol. Hit assay pending. 7. Pain control with current medication regimen. 8. Insulin management per primary care service. 9. GI prophylaxis with Protonix, DVT prophylaxis with Xarelto and SCDs. 10. Encourage continued smoking cessation. 11. Continue no fat diet, possible chylothorax. 12. Patient may require inpatient rehab upon discharge. 13. We will transfer the patient to [address] [place] [address] cardiac care stepdown unit when a bed is available. 14. Start Flomax 0.4 mg by mouth daily, postvoid residual per bladder scan this morning 885 mL. Bladder scan postvoid residual if greater than [address] [place] catheter. 15. More recommendations to follow based on his clinical course. Time with Patient: Greater than 30
--- NOTE | 2018-09-14 14:44 | P.PN ---
Subjective Progress Note Date: 09/14/18 This is a pleasant 77-year-old gentleman with history of diabetes, osteoarthritis, hyperlipidemia, obstructive sleep apnea, bilateral lower extremity DVTs chronically on xarelto who presented to the hospital with symptoms of chest discomfort. He underwent a cardiac catheterization and was found to have 99% stenosis of the ostial portion of the LAD, he does have a normal left ventricular systolic function. Patient was not candidate for stent placement and hence was referred to cardiothoracic surgery. He will undergo coronary artery bypass grafting surgery on Thursday. Patient was seen and examined this morning, he states earlier this morning he did have 2 brief episodes of chest discomfort lasting approximately 5 minutes each. At the time of my examination he was chest pain-free. Blood pressure this morning 154/70 with a heart rate in the 70s, 99% on room air. White blood cell count 6.0, hemoglobin 13.5, platelet count 157. Sodium 143, potassium 4.3, BUN 10, creatinine 0.7. 09/14/2018 Patient was seen and examined in the intensive care unit today, awake and alert in no acute distress. Doing well on the incentive spirometer. Blood pressure 104/50 with a heart rate of 80. White blood cell count 16.8, hemoglobin 10, platelet count 144. Sodium 140, potassium 4.2, BUN 14, creatinine 0.8. Magnesium 2.2. S2 x-ray from today revealed small left apical pneumothorax estimated to be about 10%. Objective - Vital Signs Vital signs: Vital Signs Temp 98.7 F 09/14/18 08:00 Pulse 84 09/14/18 13:33 Resp 37 H 09/14/18 09:00 BP 127/54 09/14/18 09:00 Pulse Ox 97 09/14/18 08:00 Intake & Output 09/13/18 09/14/18 09/14/18 18:59 06:59 18:59 Intake Total 450 300 Output Total 055 935 5497 Balance -350 -220 -1390 Weight 84.2 kg Intake: Oral 450 300 Output: Chest Tube Drainage 100 20 40 Bilateral Mediastinal 50 Left Lateral Chest 50 20 40 Urine 577 899 4477 Post Void Residual 400 Other: Voiding Method Bedside Commode Bedside Commode Bedside Commode # Voids 1 1 # Bowel Movements 1 1 ABP, PAP, CO, CI - Last Documented Arterial Blood Pressure 168/38 Pulmonary Artery Pressure 20/11 Cardiac Output 4.4 Cardiac Index 2.6 - Exam GENERAL EXAM: Awake and alert, pleasant, 77-year-old white male, on room air, no distress HEAD: Normocephalic/atraumatic. EYES: Normal reaction of pupils, equal size. Conjunctiva pink, sclera white. NOSE: Clear with pink turbinates. THROAT: No erythema or exudates. NECK: No masses, no JVD, no thyroid enlargement, no adenopathy. CHEST: No chest wall deformity. Symmetrical expansion. Midsternal incision clean dry and intact, approximated, covered with a surgical dressing, mediastinal chest tube has been discontinued, left pleural chest tube remains in place with the thin serosanguineous output. LUNGS: Equal air entry with no crackles, wheeze, rhonchi or dullness. CVS: Regular rate and rhythm, normal S1 and S2, no gallops, no murmurs, no rubs ABDOMEN: Soft, nontender. No hepatosplenomegaly, normal bowel sounds, no guarding or rigidity. EXTREMITIES: No clubbing, no edema, no cyanosis, 2+ pulses and upper and lower extremities. SCDs are in place on bilateral lower extremities MUSCULOSKELETAL: Muscle strength and tone normal. SPINE: No scoliosis or deformity SKIN: No rashes CENTRAL NERVOUS SYSTEM: No focal deficits, tone is normal in all 4 extremities. - Labs CBC & Chem 7: 09/14/18 05:15 09/14/18 05:15 Labs: Abnormal Lab Results - Last 24 Hours (Table) 09/12/18 09/13/18 09/13/18 Range/Units 06:57 17:07 20:41 WBC (3.8-10.6) k/uL RBC (4.30-5.90) m/uL Hgb (13.0-17.5) gm/dL Hct (39.0-53.0) % Plt Count (150-450) k/uL Neutrophils # (1.3-7.7) k/uL Monocytes # (0-1.0) k/uL Glucose (74-99) mg/dL POC Glucose (mg/dL) 138 H 102 H (75-99) mg/dL Calcium (8.4-10.2) mg/dL Urine Glucose (UA) (Negative) Ur Leukocyte Esterase (Negative) Urine WBC (0-5) /hpf Heparin-Ind Plt Ab Scrn 2.799 H (<0.4) OD 09/14/18 09/14/18 09/14/18 Range/Units 05:15 05:15 06:58 WBC 16.8 H (3.8-10.6) k/uL RBC 3.11 L (4.30-5.90) m/uL Hgb 10.0 L (13.0-17.5) gm/dL Hct 29.5 L (39.0-53.0) % Plt Count 144 L (150-450) k/uL Neutrophils # 13.6 H (1.3-7.7) k/uL Monocytes # 1.1 H (0-1.0) k/uL Glucose 155 H (74-99) mg/dL POC Glucose (mg/dL) 158 H (75-99) mg/dL Calcium 8.1 L (8.4-10.2) mg/dL Urine Glucose (UA) (Negative) Ur Leukocyte Esterase (Negative) Urine WBC (0-5) /hpf Heparin-Ind Plt Ab Scrn (<0.4) OD 09/14/18 09/14/18 Range/Units 09:00 11:53 WBC (3.8-10.6) k/uL RBC (4.30-5.90) m/uL Hgb (13.0-17.5) gm/dL Hct (39.0-53.0) % Plt Count (150-450) k/uL Neutrophils # (1.3-7.7) k/uL Monocytes # (0-1.0) k/uL Glucose (74-99) mg/dL POC Glucose (mg/dL) 145 H (75-99) mg/dL Calcium (8.4-10.2) mg/dL Urine Glucose (UA) 2+ H (Negative) Ur Leukocyte Esterase Small H (Negative) Urine WBC 10 H (0-5) /hpf Heparin-Ind Plt Ab Scrn (<0.4) OD Assessment and Plan Plan: Impression: #1 status post coronary artery bypass grafting surgery #2 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 #3 Diabetes mellitus. #4 Osteoarthritis. #5 Sleep apnea. #6 Remote history of chronic tobacco dependence. Plan We will continue the patient on his current medications. DNP note has been reviewed, I agree with a documented findings and plan of care. Patient was seen and examined.
[2018-09-14 16:40] LABS: Glucose,Whole Blood 146 mg/dL (75-99)
[2018-09-14] MEDS: RIVAROXABAN 20 MG TAB PO SCH (17:34)
[2018-09-14 20:42] LABS: Glucose,Whole Blood 184 mg/dL (75-99)
[2018-09-14] MEDS: METOPROLOL TARTRATE 25 MG TAB PO SCH (21:50)
[2018-09-15 05:39] LABS: Basophils % (A) 0 %; Eosinophils # (A) 0.4 k/uL (0-0.7); Eosinophils % (A) 4 %; HCT 27.7 % (39.0-53.0); HGB 9.3 gm/dL (13.0-17.5); Lymphocytes # (A) 1.1 k/uL (1.0-4.8); Lymphocytes % (A) 11 %; MCHC 33.6 g/dL (31.0-37.0); Mean Platelet Volume 8.2; Monocytes # (A) 0.6 k/uL (0-1.0); Monocytes % (A) 6 %; Neutrophils % (A) 78 %; Platelet Count 170 k/uL (150-450); RBC 2.91 m/uL (4.30-5.90); RDW 14.3 % (11.5-15.5); WBC 10.3 k/uL (3.8-10.6)
[2018-09-15 06:03] LABS: Anion Gap 7 mmol/L; Blood Urea Nitrogen 14 mg/dL (9-20); Calcium 7.8 mg/dL (8.4-10.2); Carbon Dioxide 26 mmol/L (22-30); Chloride 106 mmol/L (98-107); Glucose 122 mg/dL (74-99); Magnesium 2.2 mg/dL (1.6-2.3); Potassium 3.9 mmol/L (3.5-5.1); Sodium 139 mmol/L (137-145)
[2018-09-15 06:50] LABS: Glucose,Whole Blood 140 mg/dL (75-99)
[2018-09-15] MEDS: INSULN ASP PRT/INSULIN ASPART 100 UNIT/ML 10 ML VIAL SQ SCH (07:55)
[2018-09-15] MEDS: INSULIN ASPART 100 UNIT/ML 1 ML 10 ML VIAL SQ SCH ×2 (07:55→12:10)
[2018-09-15] MEDS: METOPROLOL TARTRATE 25 MG TAB PO SCH (07:55)
[2018-09-15] MEDS: PANTOPRAZOLE 40 MG TABLET PO SCH (07:56)
[2018-09-15] MEDS: ASPIRIN 81 MG PO SCH (07:56)
[2018-09-15] MEDS: TAMSULOSIN 0.4 MG CAP.ER.24H PO SCH (07:56)
[2018-09-15] MEDS: ATORVASTATIN 80 MG TAB PO SCH (07:56)
[2018-09-15] MEDS ORDERED: ACETAMINOPHEN TAB 325 MG TAB PO PRN ×2 (07:59)
--- NOTE | 2018-09-15 08:16 | XR ---
EXAMINATION TYPE: XR chest 1V portable DATE OF EXAM: 09/15/2018 CLINICAL HISTORY: Difficulty breathing progress study. Post open cardiac surgery. TECHNIQUE: Single AP portable upright view of the chest is obtained. COMPARISON: Chest x-ray from one day earlier and older studies. FINDINGS: Post CABG changes with mediastinal clips and sternal wires is redemonstrated. There is int erval removal of left-sided chest tube. Previously visualized or suspected small left apical pneumoth orax is less well-seen but there is more overlap of upper ribs as well as left sided rotation on curr ent study as well as overlying rectangular shaped density making evaluation at this level suboptimal. Cardiac silhouette size is stable and within normal limits. There is chronic parenchymal change with tiny bilateral pleural effusions and associated bibasilar atelectasis and/or infiltrate redemonstrat ed. No mediastinal shift is seen. Multilevel spurring and spine is redemonstrated. IMPRESSION: Interval removal of left-sided chest tube without large or increasing size pneumothorax. Suboptimal evaluation left lung apex noted to exclude residual small to tiny left pneumothorax. There is chronic parenchymal change with tiny bilateral pleural effusions and associated bibasilar atelect asis and/or less likely infiltrate all redemonstrated.
--- NOTE | 2018-09-15 08:17 | P.PN ---
Subjective Progress Note Date: 09/15/18 Principal diagnosis: Coronary artery disease with ostial LAD stenosis 99%. Previous medical history of diabetes with the preoperative FEV1 6.5%, skin cancer with removal, DVT left lower extremity in 2012 and right lower extremity in 2013 on chronic Xarelto for anticoagulation, recent left rotator cuff repair, previous tobacco dependence, mild COPD with preoperative FEV1 67% of predicted, obstructive sleep apnea without home CPAP, peripheral vascular disease, and family history of early coronary artery disease with father diagnosed at 52 years old. POD #7 coronary bypass grafting 2 vessels, left internal mammary artery to the left anterior descending artery, reverse saphenous vein graft to the diagonal artery. Endoscopic vein harvest, left greater saphenous vein from the thigh. Epi-aortic ultrasound. Intraoperative transesophageal echocardiogram. Postoperative acute blood loss anemia, an expected outcome given cardiopulmonary bypass and hemodilution. Postoperative urinary retention, unexpected. Patient's currently laying in bed in no acute distress. States pain is well- controlled on current medication regimen. Denies shortness of breath. While up in the shower this morning did feel a little lightheaded and dizzy and was taken back to his room, vital signs were stable at that time. Currently denies any lightheadedness, dizziness or weakness. Pleural chest tube discontinued yesterday. Patient did have an episode of urinary retention yesterday with straight catheterization for 500 mL of urine. Objective - Vital Signs Vital signs: Vital Signs Temp 98.3 F 09/15/18 04:00 Pulse 92 09/15/18 06:00 Resp 27 H 09/15/18 06:00 BP 115/54 09/15/18 06:00 Pulse Ox 92 L 09/15/18 06:00 Intake & Output 09/14/18 09/15/18 09/15/18 18:59 06:59 18:59 Intake Total 300 Output Total 1989 760 Balance -1690 -760 Weight 71.2 kg Intake: Oral 300 Output: Chest Tube Drainage 40 Left Lateral Chest 40 Urine 1550 760 Post Void Residual 400 Other: Voiding Method Bedside Commode Bedside Commode # Voids 1 # Bowel Movements 1 ABP, PAP, CO, CI - Last Documented Arterial Blood Pressure 168/38 Pulmonary Artery Pressure 20/11 Cardiac Output 4.4 Cardiac Index 2.6 - Constitutional General appearance: Present: cooperative, no acute distress - Respiratory Details: Lungs sounds diminished bilaterally. Respirations even, nonlabored. Currently on room air with oxygen saturation 96%. Able to achieve 1500 mL on his incentive spirometry. Strong, effective cough. - Cardiovascular Details: S1, S2 present. Regular rate and rhythm, sinus rhythm on telemetry. Sternum stable. Palpable peripheral pulses bilaterally. No edema present. No calf pain or tenderness noted. Heart hugger in place with patient demonstrating appropriate use. Antiembolism stockings, SCDs present. - Gastrointestinal Gastrointestinal Comment(s): Abdomen soft, nontender, nondistended. Active bowel sounds present 4 quadrants. Tolerating diet. Positive bowel movement. - Genitourinary Genitourinary Comment(s): Patient continues to void clear, yellow urine, 760 mL output overnight. Denies anymore straight catheterizations. - Integumentary Integumentary Comment(s): Skin is warm and dry with evidence of good perfusion. Anterior chest incision well approximated and covered with dry intact dressing. Left lower extremity EVH site well approximated. - Neurologic Neurologic: Present: CNII-XII intact - Musculoskeletal Musculoskeletal: Present: gait normal, strength equal bilaterally - Psychiatric Psychiatric: Present: A&O x's 3, appropriate affect, intact judgment & insight - Allied health notes Allied health notes reviewed: nursing - Labs CBC & Chem 7: 09/15/18 04:48 09/15/18 04:48 Labs: Abnormal Lab Results - Last 24 Hours (Table) 09/12/18 09/14/18 09/14/18 Range/Units 06:57 09:00 11:53 RBC (4.30-5.90) m/uL Hgb (13.0-17.5) gm/dL Hct (39.0-53.0) % Neutrophils # (1.3-7.7) k/uL Glucose (74-99) mg/dL POC Glucose (mg/dL) 145 H (75-99) mg/dL Calcium (8.4-10.2) mg/dL Urine Glucose (UA) 2+ H (Negative) Ur Leukocyte Esterase Small H (Negative) Urine WBC 10 H (0-5) /hpf Heparin-Ind Plt Ab Scrn 2.799 H (<0.4) OD 09/14/18 09/14/18 09/15/18 Range/Units 16:39 20:41 04:48 RBC 2.91 L (4.30-5.90) m/uL Hgb 9.3 L (13.0-17.5) gm/dL Hct 27.7 L (39.0-53.0) % Neutrophils # 8.0 H (1.3-7.7) k/uL Glucose (74-99) mg/dL POC Glucose (mg/dL) 146 H 184 H (75-99) mg/dL Calcium (8.4-10.2) mg/dL Urine Glucose (UA) (Negative) Ur Leukocyte Esterase (Negative) Urine WBC (0-5) /hpf Heparin-Ind Plt Ab Scrn (<0.4) OD 09/15/18 09/15/18 Range/Units 04:48 06:49 RBC (4.30-5.90) m/uL Hgb (13.0-17.5) gm/dL Hct (39.0-53.0) % Neutrophils # (1.3-7.7) k/uL Glucose 122 H (74-99) mg/dL POC Glucose (mg/dL) 140 H (75-99) mg/dL Calcium 7.8 L (8.4-10.2) mg/dL Urine Glucose (UA) (Negative) Ur Leukocyte Esterase (Negative) Urine WBC (0-5) /hpf Heparin-Ind Plt Ab Scrn (<0.4) OD Microbiology - Last 24 Hours (Table) 09/14/18 09:00 Urine Culture - Preliminary Urine,Voided - Imaging and Cardiology Chest x-ray: image reviewed Assessment and Plan (1) Coronary artery disease Current Visit: Yes Status: Chronic Code(s): I25.10 - ATHSCL HEART DISEASE OF TRIBE CORONARY ARTERY W/O ANG PCTRS SNOMED Code(s): 86209779 (2) Diabetes mellitus Current Visit: Yes Status: Chronic Code(s): E11.9 - TYPE 2 DIABETES MELLITUS WITHOUT COMPLICATIONS SNOMED Code(s): 24710743 (3) History of skin cancer Current Visit: No Status: Resolved Code(s): Z85.828 - PERSONAL HISTORY OF OTHER MALIGNANT NEOPLASM OF SKIN SNOMED Code(s): 438859350 (4) DVT (deep venous thrombosis) Current Visit: No Status: Resolved Code(s): I82.409 - ACUTE EMBOLISM AND THOMBOS UNSP DEEP VN UNSP LOWER EXTREMITY SNOMED Code(s): 830561760 (5) Chronic anticoagulation Current Visit: Yes Status: Chronic Code(s): Z79.01 - COMMUNICATIONS ASSISTANT (CURRENT) USE OF ANTICOAGULANTS SNOMED Code(s): 957153529 (6) Family history of premature CAD Current Visit: Yes Status: Chronic Code(s): Z82.49 - FAMILY HX OF ISCHEM HEART DIS AND OTH DIS OF THE CIRC SYS SNOMED Code(s): 687862281 (7) Tobacco dependence in remission Current Visit: No Status: Resolved Code(s): F17.201 - NICOTINE DEPENDENCE, UNSPECIFIED, IN REMISSION SNOMED Code(s): 583790480 (8) Unstable angina pectoris Current Visit: Yes Status: Acute Code(s): I20.0 - UNSTABLE ANGINA SNOMED Code(s): 7399202 Plan: 1. Continue low-dose aspirin, statin, beta marline. Will increase beta marline therapy as tolerated. 2. Continue Xarelto for anticoagulation secondary to history of DVTs. 3. KAYLEN inhibitor discontinued secondary to hypotension yesterday. Orthostatic vitals ordered. 4. Encourage incentive spirometry 10 times every hour while awake. 5. Increase activity, ambulate as tolerated. PT/OT/cardiac rehab following. 6. Will monitor daily labs and x-rays. Electrolyte replacement per protocol. 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 7. Pain control with current medication regimen. 8. Insulin management per primary care service. 9. GI prophylaxis with Protonix, DVT prophylaxis with Xarelto and SCDs. 10. Encourage continued smoking cessation. 11. Continue Flomax for retention. Urology consulted, appreciate recommendations. 12. Continue no fat diet, await triglyceride results from pleural fluid. 13. May transfer to [address] [place] [address] cardiac stepdown unit when bed available. 14. Discharge planning a progress. Anticipate discharge to inpatient rehab when bed available and insurance authorization obtained. 15. More recommendations to follow. Time with Patient: Greater than 30
[2018-09-15] MEDS: IPRATROPIUM-ALBUTEROL 3 ML NEB INHALATION SCH ×2 (08:47→12:59)
--- NOTE | 2018-09-15 09:22 | P.GSCN ---
History of Present Illness Consult date: 09/15/18 Reason for Consult: Postoperative urinary retention History of present illness: The patient is a 77-year-old gentleman in the hospital for coronary disease. He is 7 days status post coronary artery bypass grafting. There was a concern that he went in the urine retention. There is been conflicting evidence as to whether this is indeed the case. He had bladder scans obtained that were showing residuals over 800 mL but apparently he had a catheterized residual of only 100 mL last night. The patient does not feel full. He does not have any history of voiding dysfunction. He was not on any alpha blockers prior to this hospitalization. He was placed on Flomax yesterday. He states that he does not feel full. He last voided about 2-1/2 hours prior to my consultation. Review of Systems - Constitutional Reports as per HPI - Cardiovascular Reports as per HPI - Genitourinary Reports as per HPI - Endocrine Endocrine Comment(s): The patient is diabetic Past Medical History Past Medical History: Coronary Artery Disease (CAD), Cancer, Diabetes Mellitus, Deep Vein Thrombosis (DVT), Osteoarthritis (OA), Sleep Apnea/CPAP/BIPAP Additional Past Medical History / Comment(s): hx basal cell skin cancer, bone spurs in lt shoulder History of Any Multi-Drug Resistant Organisms: None Reported Past Surgical History: Orthopedic Surgery Additional Past Surgical History / Comment(s): Rotator Cuff Surgery. left foot surgery. bilateral cataract surgery. gum surgery. hx. of removal of 3 fungal toenails Past Anesthesia/Blood Transfusion Reactions: No Reported Reaction Past Psychological History: No Psychological Hx Reported Smoking Status: Former smoker Past Alcohol Use History: None Reported Additional Past Alcohol Use History / Comment(s): smoker 20 years 1ppd quit age 50 Past Drug Use History: None Reported - Past Family History Mother Family Medical History: No Reported History Additional Family Medical History / Comment(s): Mother of a "blood clot" Father Family Medical History: Coronary Artery Disease (CAD) Medications and Allergies Home Medications Medication Instructions Recorded Confirmed Type Rivaroxaban [Xarelto] 20 mg PO AC-LUNCH 03/27/14 09/02/18 History metFORMIN HCL 500 mg PO BID 12/11/14 09/02/18 History Artificial Tears-Hypromellose 1 - 2 drops BOTH EYES DAILY PRN 09/02/18 09/02/18 History [Artificial Tear Drops] Aspirin EC [Ecotrin Low Dose] 81 mg PO AC-LUNCH 09/02/18 09/02/18 History Allergies Allergy/AdvReac Type Severity Reaction Status Date / Time codeine AdvReac Nausea & Verified 09/02/18 16:44 Vomiting Surgical - Exam Vital Signs Temp Pulse Resp BP Pulse Ox 97.5 F L 61 18 151/66 99 09/02/18 16:29 09/02/18 16:29 09/02/18 16:29 09/02/18 16:29 09/02/18 16:29 - General well developed, well nourished, no distress - Eyes PERRL - ENT no hearing loss - Neck trachea midline - Respiratory normal expansion, normal respiratory effort - Cardiovascular Rhythm: regular - Abdomen Abdomen: soft, non tender - Genitourinary Prostate is 20-30 g soft and benign. The bladder does not appear full on rectal examination normal penis with no external lesions, testicles present - Integumentary no rash, no growths - Neurologic normal coordination, normal sensation - Musculoskeletal normal posture - Psychiatric oriented to time, oriented to person, oriented to place, speech is normal, memory intact Results - Labs 09/15/18 04:48 09/15/18 04:48 Abnormal Lab Results - Last 24 Hours (Table) 09/12/18 09/14/18 09/14/18 Range/Units 06:57 09:00 11:53 RBC (4.30-5.90) m/uL Hgb (13.0-17.5) gm/dL Hct (39.0-53.0) % Neutrophils # (1.3-7.7) k/uL Glucose (74-99) mg/dL POC Glucose (mg/dL) 145 H (75-99) mg/dL Calcium (8.4-10.2) mg/dL Urine Glucose (UA) 2+ H (Negative) Ur Leukocyte Esterase Small H (Negative) Urine WBC 10 H (0-5) /hpf Heparin-Ind Plt Ab Scrn 2.799 H (<0.4) OD 09/14/18 09/14/18 09/15/18 Range/Units 16:39 20:41 04:48 RBC 2.91 L (4.30-5.90) m/uL Hgb 9.3 L (13.0-17.5) gm/dL Hct 27.7 L (39.0-53.0) % Neutrophils # 8.0 H (1.3-7.7) k/uL Glucose (74-99) mg/dL POC Glucose (mg/dL) 146 H 184 H (75-99) mg/dL Calcium (8.4-10.2) mg/dL Urine Glucose (UA) (Negative) Ur Leukocyte Esterase (Negative) Urine WBC (0-5) /hpf Heparin-Ind Plt Ab Scrn (<0.4) OD 09/15/18 09/15/18 Range/Units 04:48 06:49 RBC (4.30-5.90) m/uL Hgb (13.0-17.5) gm/dL Hct (39.0-53.0) % Neutrophils # (1.3-7.7) k/uL Glucose 122 H (74-99) mg/dL POC Glucose (mg/dL) 140 H (75-99) mg/dL Calcium 7.8 L (8.4-10.2) mg/dL Urine Glucose (UA) (Negative) Ur Leukocyte Esterase (Negative) Urine WBC (0-5) /hpf Heparin-Ind Plt Ab Scrn (<0.4) OD Microbiology - Last 24 Hours (Table) 09/14/18 09:00 Urine Culture - Preliminary Urine,Voided Diabetes panel 09/15/18 Range/Units 04:48 Sodium 139 (137-145) mmol/L Potassium 3.9 (3.5-5.1) mmol/L Chloride 106 (98-107) mmol/L Carbon Dioxide 26 (22-30) mmol/L BUN 14 (9-20) mg/dL Creatinine 0.78 (0.66-1.25) mg/dL Glucose 122 H (74-99) mg/dL Calcium 7.8 L (8.4-10.2) mg/dL Calcium panel 09/15/18 Range/Units 04:48 Calcium 7.8 L (8.4-10.2) mg/dL Pituitary panel 09/15/18 Range/Units 04:48 Sodium 139 (137-145) mmol/L Potassium 3.9 (3.5-5.1) mmol/L Chloride 106 (98-107) mmol/L Carbon Dioxide 26 (22-30) mmol/L BUN 14 (9-20) mg/dL Creatinine 0.78 (0.66-1.25) mg/dL Glucose 122 H (74-99) mg/dL Calcium 7.8 L (8.4-10.2) mg/dL Adrenal panel 09/15/18 Range/Units 04:48 Sodium 139 (137-145) mmol/L Potassium 3.9 (3.5-5.1) mmol/L Chloride 106 (98-107) mmol/L Carbon Dioxide 26 (22-30) mmol/L BUN 14 (9-20) mg/dL Creatinine 0.78 (0.66-1.25) mg/dL Glucose 122 H (74-99) mg/dL Calcium 7.8 L (8.4-10.2) mg/dL Assessment and Plan Assessment: Impression: Possible postoperative urinary retention. Recommendations: It is unclear to me as to whether the patient was in urine retention. I bladder scan and this morning myself and 156 mL of urine in the bladder and he had not voided for 2-1/2 hours. This would be an appropriate amount. Given the lack of symptoms prior to surgery, the lack of symptoms at present other than Flomax wouldn't do anything further. I can be of further assistance please let me know.
--- NOTE | 2018-09-15 11:00 | P.PN ---
Subjective Progress Note Date: 09/15/18 Principal diagnosis: Coronary artery disease, awaiting bypass surgery This is a very pleasant 77-year-old gentleman who follows with Dr. Molina as his primary care physician. 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 He had recently been having episodes of chest discomfort with exertion. Even walking out to his mailbox and back he would have to stop and rest until the pain subsided. He was seen and evaluated by Dr. Hood who directed him here to the emergency room on 09/02/2018. He had subsequently undergone cardiac catheterization and was found to have a 99% stenosis of the ostial portion of the left anterior descending artery. He does have a normal left ventricular systolic function. He was not a stent candidate and has been seen and evaluated by cardiothoracic surgery who are planning to do coronary artery bypass grafting on 09/08/2018. We are consulted for the same. The patient does have a 30 year pack per day smoking history however quit 30 years ago. He denies any history of COPD, emphysema or asthma. He is not utilizing any inhalers or oxygen in the outpatient setting. He has not been seen by a jailer chief in the past. He is seen today in consultation on the selective care unit. He is currently awake and alert in no acute distress. He denies any chest discomfort currently. No shortness of breath, cough or congestion. No dizziness or lightheadedness. He does have preserved left ventricular systolic function with ejection fraction 55-60%. No valvular heart disease. White count 6.8. Hemoglobin 1213.3. Creatinine 0.73. FEV1 value greater than 2 L. Chest x-ray showed no acute cardiopulmonary process. Carotid Dopplers without significant stenosis. On 09/06/2018 patient seen in follow-up on selective care unit, he is in no distress, no dyspnea, did have a couple episodes of chest discomfort this morning, lasting under 5 minutes, continuously resolved, patient remains on heparin drip, and maintenance IV fluid. Room air pulse ox is 98%, afebrile. Lung sounds are clear to auscultation. Today's labs have been reviewed, and are unremarkable. No new chest x-rays today, she is preop PFT was reviewed, showed a mild restrictive defect. No acute complaints. Awaiting surgery on Thursday09/08/2017. Patient is seen today 09/07/2018 in follow-up on the selective care unit. He is currently sitting up in a chair at the bedside. He is awake and alert in no acute distress. He denies any chest pain, palpitations lightheadedness or dizziness. No shortness of breath, cough or congestion. He's been up ambulating without distress. Awaiting bypass surgery in the a.m. He is working well with the incentive spirometer pulling nearly 4 L. Obtaining good O2 saturations up to 100% on room air. Hemodynamically stable. Heparin drip continues. On 09/08/2018 patient seen in follow-up in the intensive care units status post coronary bypass grafting, with DAVE to LAD, and SVG to the diagonal branch. Patient sedated, intubated, on mechanical ventilator, current settings are assist-control mode with a rate of 12, tidal volume of 600, FiO2 of 50% and PEEP of 5. Postoperative blood gases showed pO2 of 394, pCO2 41, and pH of 7.41 , FiO2 was dropped down to 50%. CBC showed white blood count of 7.9, hemoglobin of 9.1, sodium of 141, potassium is 4.3, chloride is 112, BUN of 11, creatinine of 0.66. Lung sounds are clear to auscultation, midline incision is clean dry and intact, approximated, covered with surgical dressing, AV wires to an external pacemaker with a backup rate, patient is sinus rhythm with a rate of 71 BPM, blood pressures 119/60, PA pressures of 22/13, cardiac output is 12.9 , and cardiac index of 7.5. 2 mediastinal chest tubes with a proximal 110 cigarettes output in the Pleur-evac, and there is occasional mild air leak noted , left pleural chest tube with of 40 mL of sanguinous output. IV fluids include lactated Ringer's at a rate of 50, nitroglycerin at 5 mics per minute, Diprivan, Cleviprex at 2 mg/h, insulin to be started for blood sugar over 110. Patient is nonoliguric. Postop chest x-ray was reviewed by Dr. Moore, showed mediastinal drains, epicardial pacing leads, left-sided thoracostomy tube endotracheal tube NG tube [place] catheter in appropriate positions, no pneumothorax, or pulmonary vascular congestion. Left mid lung subsegmental atelectasis noted. On 09/13/2018 patient seen again in follow-up in the intensive care unit, currently on room air, IVs have been hep-locked. Patient is getting up with assistance to the commode, denies any distress, no difficulty breathing. Today' s chest x-ray has been reviewed with Dr. Mcfarland, and shows stable left-sided thoracostomy and and small residual apical pneumothorax, unchanged bibasilar atelectasis and small pleural effusions. This is postoperative day #5. Patient is doing well, still has the [address], left pleural and mediastinal, there has been 300 mL of serosanguineous and milky colored output from the mediastinal chest tube, which was suspicious for chylothorax, and 250 serosanguineous pleural fluid out of left pleural. Patient has been voiding. In -948 fluid balance over the last 24 hours, lung sounds are clear, diminished at the bases. On September 2018 patient seen in follow-up in the intensive care unit, awake and alert, in no acute distress, on room air, no running IVs, IVs have been hep- locked, lung sounds are clear to auscultation, patient is working on his incentive spirometer, he has been ambulating, in no distress. Today's labs have been reviewed, the PVC 16.8, hemoglobin is 10.0, electrolytes and renal profile are within normal limits. Today's chest x-ray has been reviewed with Dr. Mcfarland, shows small left apical pneumothorax estimated to be at 10%, left- sided chest tube in place, he still chest tube has been discontinued by CT surgery yesterday, pleural fluid triglycerides levels have been ordered, and this is secondary test, is not resulted yet. Patient is awaiting a bed on selective care unit, no specific complaints. On 09/15/2018 patient seen in follow-up in the intensive care unit, sitting up in the recliner, in no acute distress, his chest tubes have been discontinued, patient has been up to the shower, didn't get a little dizzy this morning, did not fall, lung sounds are clear, today's chest x-ray was reviewed with Dr. Mcfarland, and shows interval removal of left-sided chest tube without pneumothorax. Chronic parenchymal changes with tiny bilateral pleural effusions. Room air 94% patient that even and nonlabored, patient is working on his incentive spirometer. Today's labs have been reviewed, pleural fluid triglycerides are still pending at this time. Objective - Vital Signs Vital signs: Vital Signs Temp 98.7 F 09/15/18 08:00 Pulse 96 09/15/18 09:00 Resp 12 09/15/18 08:00 BP 88/46 09/15/18 10:01 Pulse Ox 94 L 09/15/18 08:00 Intake & Output 09/14/18 09/15/18 09/15/18 18:59 06:59 18:59 Intake Total 300 Output Total 1989 760 0 Balance -1690 -760 0 Weight 71.2 kg Intake: Oral 300 Output: Chest Tube Drainage 40 Left Lateral Chest 40 Urine 1550 760 0 Post Void Residual 400 Other: Voiding Method Bedside Commode Bedside Commode Urinal # Voids 1 # Bowel Movements 1 ABP, PAP, CO, CI - Last Documented Arterial Blood Pressure 168/38 Pulmonary Artery Pressure 20/11 Cardiac Output 4.4 Cardiac Index 2.6 - Exam GENERAL EXAM: Awake and alert, pleasant, 77-year-old white male, on room air, no distress HEAD: Normocephalic/atraumatic. EYES: Normal reaction of pupils, equal size. Conjunctiva pink, sclera white. NOSE: Clear with pink turbinates. THROAT: No erythema or exudates. NECK: No masses, no JVD, no thyroid enlargement, no adenopathy. CHEST: No chest wall deformity. Symmetrical expansion. Midsternal incision clean dry and intact, approximated, covered with a surgical dressing. LUNGS: Equal air entry with no crackles, wheeze, rhonchi or dullness. CVS: Regular rate and rhythm, normal S1 and S2, no gallops, no murmurs, no rubs ABDOMEN: Soft, nontender. No hepatosplenomegaly, normal bowel sounds, no guarding or rigidity. EXTREMITIES: No clubbing, no edema, no cyanosis, 2+ pulses and upper and lower extremities. SCDs are in place on bilateral lower extremities MUSCULOSKELETAL: Muscle strength and tone normal. SPINE: No scoliosis or deformity SKIN: No rashes CENTRAL NERVOUS SYSTEM: No focal deficits, tone is normal in all 4 extremities. - Labs CBC & Chem 7: 09/15/18 04:48 09/15/18 04:48 Labs: Abnormal Lab Results - Last 24 Hours (Table) 09/12/18 09/14/18 09/14/18 Range/Units 06:57 11:53 16:39 RBC (4.30-5.90) m/uL Hgb (13.0-17.5) gm/dL Hct (39.0-53.0) % Neutrophils # (1.3-7.7) k/uL Glucose (74-99) mg/dL POC Glucose (mg/dL) 145 H 146 H (75-99) mg/dL Calcium (8.4-10.2) mg/dL Heparin-Ind Plt Ab Scrn 2.799 H (<0.4) OD 09/14/18 09/15/18 09/15/18 Range/Units 20:41 04:48 04:48 RBC 2.91 L (4.30-5.90) m/uL Hgb 9.3 L (13.0-17.5) gm/dL Hct 27.7 L (39.0-53.0) % Neutrophils # 8.0 H (1.3-7.7) k/uL Glucose 122 H (74-99) mg/dL POC Glucose (mg/dL) 184 H (75-99) mg/dL Calcium 7.8 L (8.4-10.2) mg/dL Heparin-Ind Plt Ab Scrn (<0.4) OD 09/15/18 Range/Units 06:49 RBC (4.30-5.90) m/uL Hgb (13.0-17.5) gm/dL Hct (39.0-53.0) % Neutrophils # (1.3-7.7) k/uL Glucose (74-99) mg/dL POC Glucose (mg/dL) 140 H (75-99) mg/dL Calcium (8.4-10.2) mg/dL Heparin-Ind Plt Ab Scrn (<0.4) OD Microbiology - Last 24 Hours (Table) 09/14/18 09:00 Urine Culture - Preliminary Urine,Voided Assessment and Plan Plan: Assessment: #1 Coronary artery disease with 99% stenosis involving the ostial portion of the left anterior descending artery, status post 2 vessel bypass grafting, with DAVE to LAD, and SVG to the diagonal branch, postop day 6 #2 Routine postoperative ventilator management #3 Postop blood loss anemia, an expected outcome of bypass surgery #4 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 #5 Diabetes mellitus. #6 Osteoarthritis. #7 Sleep apnea. #8 Remote history of chronic tobacco dependence. #9 postoperative atelectasis, expected outcome of bypass surgery #10 possible chylothorax, or pseudo-chylothorax workup is pending on the pleural effusion which was sent for triglycerides and cholesterol Plan: Patient remains stable, no pulmonary complaints, no dyspnea, his pain is under good control, he is ambulating, chest tubes have been removed. Today's chest x- ray has been reviewed and showed interval removal of left-sided chest tube without large or increasing size pneumothorax, tiny bilateral pleural effusions and associated atelectasis. Vital signs stable. Labs were reviewed. Patient is awaiting a bed on selective care unit, possible discharge to rehab. I performed a history & physical examination of the patient and discussed their management with my nurse practitioner, Mago Thrasher. I reviewed the nurse practitioner's note and agree with the documented findings and plan of care. Lung sounds are positive for clear breath sounds. The findings and the impression was discussed with the patient. I attest to the documentation by the nurse practitioner. Time with Patient: Less than 30
[2018-09-15 12:09] VITALS: BP 109/47; RESP 25; TEMP 97.9
--- NOTE | 2018-09-15 12:13 | PN ---
PROGRESS NOTE A 77-year-old gentleman who was admitted to hospital who underwent bypass surgery for proximal LAD stenosis. He has had a slow perioperative recovery. Yesterday he had an episode of near syncope that seemed a vasovagal episode. This morning he apparently had another episode, but we do not have any documentation of his blood pressure and heart rate from that time. The patient appears good. He is feeling much better this morning. Heart rate is 90 beats per minute. Blood pressure is 118/50 and still has some orthostatic changes. On exam, there is no jugular venous distention. Carotid upstroke is normal. Chest exam reveals good air entry bilaterally. Heart exam reveals first and second heart sounds. No gallop. Examination of the extremities did not reveal any edema. Peripheral pulses are palpable. ASSESSMENT: 1. Coronary artery disease, status post coronary artery bypass grafting. 2. History of coagulopathy on long-term anticoagulation. 3. Near syncope, probably vasovagal in origin. PLAN: I ambulated the patient this morning he is doing well. If the patient's blood pressure continues to be at the lower end of normal, I suggest we decrease the dose of metoprolol to 25 b.i.d. MMODL / IJN: [id number] /
[2018-09-15 12:15] LABS: Glucose,Whole Blood 165 mg/dL (75-99)
--- NOTE | 2018-09-15 12:40 | P.DS ---
Providers Date of admission: 09/04/18 07:33 Expected date of discharge: 09/15/18 Attending physician: Bernardo Francisco Consults: 09/08/18 13:57 Consult Physician Routine Consulting Provider: Sunny Hernandez Consult Reason/Comments: medical management Do you want consulting provider notified?: Already Contacted 09/10/18 15:10 Consult Physician Routine Consulting Provider: Hesham Ceja Consult Reason/Comments: possible inpatient rehab Do you want consulting provider notified?: Yes 09/14/18 10:07 Consult Physician Routine Consulting Provider: Robin Mace Consult Reason/Comments: Urine retention Do you want consulting provider notified?: Yes 09/02/18 18:22 Consult Physician Urgent Consulting Provider: Temo Hood Consult Reason/Comments: Chest pain, unstable angina Do you want consulting provider notified?: Already Contacted 09/03/18 12:36 Consult Physician Routine Consulting Provider: Nehemiah Mitchell Consult Reason/Comments: preop cabg Do you want consulting provider notified?: Already Contacted 09/06/18 10:05 Consult to Anesthesia Routine Consulting Provider: Anesthesia,Services Consult Reason/Comments: Cardiac Surgery Pre-Op Primary care physician: Tracy Sutton - Discharge Diagnosis(es) (1) Coronary artery disease Current Visit: Yes Status: Chronic (2) Diabetes mellitus Current Visit: Yes Status: Chronic (3) History of skin cancer Current Visit: No Status: Resolved (4) DVT (deep venous thrombosis) Current Visit: No Status: Resolved (5) Chronic anticoagulation Current Visit: Yes Status: Chronic (6) Family history of premature CAD Current Visit: Yes Status: Chronic (7) Tobacco dependence in remission Current Visit: No Status: Resolved (8) Unstable angina pectoris Current Visit: Yes Status: Acute Hospital Course: FINAL DIAGNOSIS: 1. Coronary artery disease with ostial LAD stenosis 99% 2. Diabetes mellitus with preoperative FEV1 6.5% 3. Skin cancer with removal 4. DVT left lower extremity in 2012, right lower extremity in 2013, on chronic Xarelto for anticoagulation 5. Recent left rotator cuff repair 6. Previous tobacco dependence 7. Mild COPD with preoperative FEV1 67% of predicted 8. Obstructive sleep apnea without home CPAP use 9. Peripheral vascular disease 10. Family history of early coronary artery disease 11. Postoperative acute blood loss anemia, expected outcome 12. Postoperative urinary retention, unexpected PRINCIPAL PROCEDURE: 1. Coronary bypass grafting 2 vessels, left internal mammary artery to the left anterior descending artery, reverse saphenous vein graft to the diagonal artery 2. Endoscopic vein harvest, left greater saphenous vein from the thigh 3. Epi-aortic ultrasound 4. Intraoperative transesophageal echocardiogram HISTORY OF PRESENT ILLNESS: This is a 77 year old gentleman who follows with Dr. Molina on an outpatient basis. Over the previous few weeks, he had been experiencing exertional chest pain associated with nausea but no shortness of breath. These episodes began appearing more frequently. He was seen by Dr. Hood in the office, relayed symptoms, an EKG was performed demonstrating sinus rhythm with T-wave inversions in lead aVL, V1, and V2. He was sent to the emergency room by Dr. Hood with the intention of heart catheterization. The heart catheterization was performed demonstrating ostial LAD stenosis 99% with no other significant coronary disease. LV gram was completed at that time demonstrating normal left ventricular function with EF 75%. The patient was referred to Dr. Francisco from cardiothoracic surgery. He was recommended to undergo coronary artery bypass graft surgery. The usual perioperative course was discussed in detail with the patient and his family, all risks and benefits were explained, all questions were answered, and consent was obtained to proceed with surgery. Preoperative testing was completed including trans- thoracic echocardiogram which showed normal left ventricular function with EF 55 -60%, trace mitral regurgitation and trace tricuspid regurgitation. Due to the need to be taken off Xarelto, the patient was kept inpatient to receive IV heparin. HOSPITAL COURSE: The patient was taken to the preoperative area on 09/08/2018, prepared in the usual fashion, and subsequently taken to the operating room where Dr. Francisco performed coronary bypass grafting 2 vessels, left internal mammary artery to the left anterior descending artery, reverse saphenous vein graft to the diagonal artery, endoscopic vein harvest, left greater saphenous vein from the thigh, epi-aortic ultrasound, and intraoperative transesophageal echocardiogram. Upon completion of surgery the patient was transferred to the cardiovascular intensive care unit where he was recovered, monitored hemodynamically, and where he progressed to cardiac rehabilitation phase 1. He was extubated, all lines, tubes, and drips were discontinued when appropriate, and orders were placed to transfer to [address] [place] [address] cardiac stepdown unit for further monitoring and rehabilitation, however there was no bed availability and the patient was kept in the intensive care unit as an overflow patient until discharge. He did have an episode of postoperative urinary retention which resolved with initiation of Flomax. His oxygen was titrated down, he continued to work with physical and occupational therapy, he was tolerating oral diet, his pain was controlled, and he was ready to be discharged to [facility] inpatient rehab on postoperative day #7. He received written and verbal instruction regarding his medications, activity restrictions, signs and symptoms requiring physician notification, and follow-up appointments. COMPLICATIONS: The patient experienced postoperative acute blood loss anemia and urinary retention which were treated accordingly. Patient Condition at Discharge: Stable Plan - Discharge Summary Discharge Rx Participant: Yes New Discharge Prescriptions: New Acetaminophen Tab [Tylenol] 650 mg PO Q6HR PRN tab PRN Reason: Pain Scale 6 To 10 Acetaminophen Tab [Tylenol] 325 mg PO Q6HR PRN tab PRN Reason: Pain Scale 1 To 5 Aspirin 81 mg PO DAILY chew Atorvastatin [Lipitor] 80 mg PO DAILY tab Insulin Aspart [NovoLOG (formulary)] 0 unit SQ ACHS vial Insulin Aspart [NovoLOG (formulary)] 9 unit SQ AC-SUPPER vial Insuln Asp Prt/Insulin Aspart [NovoLOG MIX 70-30 VIAL] 37 unit SQ AC-BRKFST vial Ipratropium-Albuterol Nebulize [Duoneb 0.5 mg-3 mg/3 ml Soln] 3 ml INHALATION RT-QID ampul.neb Ipratropium-Albuterol Nebulize [Duoneb 0.5 mg-3 mg/3 ml Soln] 3 ml INHALATION RT-Q2H PRN ampul.neb PRN Reason: Shortness Of Breath Or Wheezing Magnesium Hydroxide [Milk of Magnesia Concentrate] 2,400 mg PO BID PRN ml PRN Reason: Constipation Metoprolol Tartrate [Lopressor] 50 mg PO BID tab Pantoprazole [Protonix] 40 mg PO AC-BRKFST tablet. Rivaroxaban [Xarelto] 20 mg PO W/SUPPER tab Tamsulosin [Flomax] 0.4 mg PO PC-BRKFST cap.er.24h Continue Artificial Tears-Hypromellose [Artificial Tear Drops] 1 - 2 drops BOTH EYES DAILY PRN PRN Reason: Dry Eye(S) Discontinued Rivaroxaban [Xarelto] 20 mg PO AC-LUNCH metFORMIN HCL 500 mg PO BID Aspirin EC [Ecotrin Low Dose] 81 mg PO AC-LUNCH Discharge Medication List Artificial Tears-Hypromellose [Artificial Tear Drops] 1 - 2 drops BOTH EYES DAILY PRN 09/02/18 [History] Acetaminophen Tab [Tylenol] 325 mg PO Q6HR PRN tab 09/15/18 [Rx] Acetaminophen Tab [Tylenol] 650 mg PO Q6HR PRN tab 09/15/18 [Rx] Aspirin 81 mg PO DAILY chew 09/15/18 [Rx] Atorvastatin [Lipitor] 80 mg PO DAILY tab 09/15/18 [Rx] Insulin Aspart [NovoLOG (formulary)] 0 unit SQ ACHS vial 09/15/18 [Rx] Insulin Aspart [NovoLOG (formulary)] 9 unit SQ AC-SUPPER vial 09/15/18 [Rx] Insuln Asp Prt/Insulin Aspart [NovoLOG MIX 70-30 VIAL] 37 unit SQ AC-BRKFST vial 09/15/18 [Rx] Ipratropium-Albuterol Nebulize [Duoneb 0.5 mg-3 mg/3 ml Soln] 3 ml INHALATION RT -Q2H PRN ampul.neb 09/15/18 [Rx] Ipratropium-Albuterol Nebulize [Duoneb 0.5 mg-3 mg/3 ml Soln] 3 ml INHALATION RT -QID ampul.neb 09/15/18 [Rx] Magnesium Hydroxide [Milk of Magnesia Concentrate] 2,400 mg PO BID PRN ml 09/15 [Rx] Metoprolol Tartrate [Lopressor] 50 mg PO BID tab 09/15/18 [Rx] Pantoprazole [Protonix] 40 mg PO AC-BRKFST tablet.dr 09/15/18 [Rx] Rivaroxaban [Xarelto] 20 mg PO W/SUPPER tab 09/15/18 [Rx] Tamsulosin [Flomax] 0.4 mg PO PC-BRKFST cap.er.24h 09/15/18 [Rx] Follow up Appointment(s)/Referral(s): Herman Molina MD [Primary Care Provider] - 2 Weeks (Please make follow up appointment once discharged from rehab) Nehemiah Mitchell DO [Doctor of Osteopathic Medicine] - 10/12/18 2:30 pm Bernardo Francisco MD [STAFF PHYSICIAN] - 10/08/18 10:00 am Temo Hood MD [STAFF PHYSICIAN] - 09/28/18 3:45 pm Activity/Diet/Wound Care/Special Instructions: CONSULTS AT INPATIENT REHAB: Dr. Hood for cardiology DISCHARGE INSTRUCTIONS: 1. No driving for 4 weeks, or until physician gives their ok. 2. The patient should sleep in their own bed, no medical bed needed. 3. Stairs are not an issue. If the bedroom is upstairs, it is advised that the patient go up at night and down in the morning for the first week. Go slowly, using handrail and take 1 step at a time. 4. JOSE hose are to be worn for 30 days or until physician discontinues. 5. Heart hugger is to be worn 100% of the time until physician discontinues.( except when showering) 6. No lifting, pushing, or pulling more than 10 pounds for 12 weeks. The physician will advise of any restriction changes. 7. The patient is expected to continue the prescribed walking program. 8. Continue pain control per as needed orders. 9. Continue with incentive spirometry and splinting/heart hugger until otherwise directed by the physician. 10. Must shower daily using liquid antibacterial soap and a separate white washcloth for each individual incision. 11. Routine sternal incision care. No powders, lotions, ointments on incisions. 12. Please call surgeon/WOOD PATTERNMAKER for temp greater than 101 F or purulent drainage from incisions. 13. All prescriptions given by surgeon for 30 days. Refills need to be filled through numerologist/primary care physician. 14. A Red armband has been placed on the patient. It should be worn for 30 days post surgery and will be removed by the cardiac surgeons. If an ER visit is necessary, please make sure the number on the Red armband is called. REHAB/HOME HEALTH SERVICES TO PROVIDE: RN SKILLED HOME CARE SERVICES FOR POST-OP SURGICAL PATIENTS WITH THE FOLLOWING: Coronary Artery Bypass Surgery (CABG) RN TO CONTINUE EDUCATION FROM ``ROAD TO A HEALTH HEART PATIENT EDUCATION MANUAL (GIVEN TO PATIENT IN THE HOSPITAL) MEDICATION RECONCILIATION WITH EDUCATION NEEDED ON FIRST HOME VISIT EMPHASIZE IMPORTANCE OF WEARING HEART HUGGER ENCOURAGE USE OF INCENTIVE SPIROMETER 10 X EVERY HOUR WHILE AWAKE ENCOURAGE UTILIZATION OF LOWER EXTREMITY COMPRESSION STOCKINGS/JOSE HOSE and ELEVATE LEGS ABOVE LEVEL OF HEART WHILE AT REST. ENCOURAGE AMBULATION 3-5x/day INCREASING TOLERATES, WHILE AVOID EXTREMES IN TEMPERATURE FREQUENCY: RN TO OPEN THE PATIENT WITHIN 24 HOURS OF DISCHARGE FROM REHAB WITH TELEHEALTH INSTALLED AT [facility] [place], RN TO VISIT 2-3 X A WEEK FOR 4 WEEKS ESTABLISHED BY PATIENT NEEDS. LABORATORY: CBC, CMP TO BE DRAWN ON THE THIRD DAY POST DISHCHARGE, 09/18/18, (RAN STAT) FAX RESULTS TO [phone]. TELEHEALTH PARAMETERS: WEIGHT: NOTIFY MD OF WEIGHT GAIN OF 2 LBS IN 24 HOURS OR 5 LBS IN ONE WEEK HR: NOTIFY MD OF HR <55 BPM OR HR>100 BPM BP: NOTIFY MD IF BP <90/55 OR BP>140/100 O2 SAT: NOTIFY MD IF PO2<93% ON ROOM AIR SEND TELEHEALTH REPORT TO PHOTO INTERN AND CARDIOVASCULAR SURGEON THE FIRST WEEK OF CARE AND THEN BI-WEEKLY. PLEASE ADDITIONALLY COMMUNICATE ANY ABNORMALS AND NEW FINDINGS TO THE SURGEONS OFFICE.
[2018-09-15 13:10] VITALS: PULSE 93
[2018-09-15 14:30] VITALS: BMI 21.2
[2018-09-15] MEDS ORDERED: METOPROLOL TARTRATE 50 MG TAB PO SCH (21:00)
--- NOTE | 2018-09-15 22:22 | P.PN ---
Subjective Progress Note Date: 09/14/18 Principal diagnosis: Status post CABG Unstable angina This is a pleasant 77-year-old gentleman with history of diabetes, osteoarthritis, hyperlipidemia, obstructive sleep apnea, bilateral lower extremity DVTs chronically on xarelto who presented to the hospital with symptoms of chest discomfort. He underwent a cardiac catheterization and was found to have 99% stenosis of the ostial portion of the LAD, he does have a normal left ventricular systolic function. Patient was not candidate for stent placement and hence was referred to cardiothoracic surgery. Patient is currently status post coronary artery bypass graft. 09/14/2018 Patient denied any complains of chest pain or shortness of breath. Able tablet. Chest tube has been removed. Hemoglobin is stable. Denied any nausea vomiting or abdominal pain. Patient did have some issues with urinary retention and urology was consulted. Otherwise no dizziness or lightheadedness. No fever no chills. Chest x-ray showed small left apical pneumothorax estimated to 10% Current medications reviewed. Objective - Vital Signs Vital signs: Vital Signs Temp 97.8 F 09/14/18 12:00 Pulse 98 09/14/18 16:49 Resp 25 H 09/14/18 14:00 BP 104/49 09/14/18 14:00 Pulse Ox 97 09/14/18 12:00 Intake & Output 09/13/18 09/14/18 09/14/18 18:59 06:59 18:59 Intake Total 450 300 Output Total 768 015 2033 Balance -350 220 -1690 Weight 84.2 kg Intake: Oral 450 300 Output: Chest Tube Drainage 100 20 40 Bilateral Mediastinal 50 Left Lateral Chest 50 20 40 Urine 278 033 3639 Post Void Residual 400 Other: Voiding Method Bedside Commode Bedside Commode Bedside Commode # Voids 1 1 # Bowel Movements 1 1 ABP, PAP, CO, CI - Last Documented Arterial Blood Pressure 168/38 Pulmonary Artery Pressure 20/11 Cardiac Output 4.4 Cardiac Index 2.6 - Exam GENERAL EXAM: Awake and alert, pleasant, 77-year-old white male, on room air, no distress HEAD: Normocephalic/atraumatic. EYES: Normal reaction of pupils, equal size. Conjunctiva pink, sclera white. NOSE: Clear with pink turbinates. THROAT: No erythema or exudates. NECK: No masses, no JVD, no thyroid enlargement, no adenopathy. CHEST: No chest wall deformity. Symmetrical expansion. Midsternal incision clean dry and intact, approximated, covered with a surgical dressing, mediastinal chest tube has been discontinued, left pleural chest tube remains in place with the thin serosanguineous output. LUNGS: Equal air entry with no crackles, wheeze, rhonchi or dullness. CVS: Regular rate and rhythm, normal S1 and S2, no gallops, no murmurs, no rubs ABDOMEN: Soft, nontender. No hepatosplenomegaly, normal bowel sounds, no guarding or rigidity. EXTREMITIES: No clubbing, no edema, no cyanosis, 2+ pulses and upper and lower extremities. SCDs are in place on bilateral lower extremities MUSCULOSKELETAL: Muscle strength and tone normal. SPINE: No scoliosis or deformity SKIN: No rashes CENTRAL NERVOUS SYSTEM: No focal deficits, tone is normal in all 4 extremities. - Labs CBC & Chem 7: 09/15/18 04:48 09/15/18 04:48 Labs: Abnormal Lab Results - Last 24 Hours (Table) 09/12/18 09/13/18 09/14/18 Range/Units 06:57 20:41 05:15 WBC 16.8 H (3.8-10.6) k/uL RBC 3.11 L (4.30-5.90) m/uL Hgb 10.0 L (13.0-17.5) gm/dL Hct 29.5 L (39.0-53.0) % Plt Count 144 L (150-450) k/uL Neutrophils # 13.6 H (1.3-7.7) k/uL Monocytes # 1.1 H (0-1.0) k/uL Glucose (74-99) mg/dL POC Glucose (mg/dL) 102 H (75-99) mg/dL Calcium (8.4-10.2) mg/dL Urine Glucose (UA) (Negative) Ur Leukocyte Esterase (Negative) Urine WBC (0-5) /hpf Heparin-Ind Plt Ab Scrn 2.799 H (<0.4) OD 09/14/18 09/14/18 09/14/18 Range/Units 05:15 06:58 09:00 WBC (3.8-10.6) k/uL RBC (4.30-5.90) m/uL Hgb (13.0-17.5) gm/dL Hct (39.0-53.0) % Plt Count (150-450) k/uL Neutrophils # (1.3-7.7) k/uL Monocytes # (0-1.0) k/uL Glucose 155 H (74-99) mg/dL POC Glucose (mg/dL) 158 H (75-99) mg/dL Calcium 8.1 L (8.4-10.2) mg/dL Urine Glucose (UA) 2+ H (Negative) Ur Leukocyte Esterase Small H (Negative) Urine WBC 10 H (0-5) /hpf Heparin-Ind Plt Ab Scrn (<0.4) OD 09/14/18 09/14/18 Range/Units 11:53 16:39 WBC (3.8-10.6) k/uL RBC (4.30-5.90) m/uL Hgb (13.0-17.5) gm/dL Hct (39.0-53.0) % Plt Count (150-450) k/uL Neutrophils # (1.3-7.7) k/uL Monocytes # (0-1.0) k/uL Glucose (74-99) mg/dL POC Glucose (mg/dL) 145 H 146 H (75-99) mg/dL Calcium (8.4-10.2) mg/dL Urine Glucose (UA) (Negative) Ur Leukocyte Esterase (Negative) Urine WBC (0-5) /hpf Heparin-Ind Plt Ab Scrn (<0.4) OD Microbiology - Last 24 Hours (Table) 09/14/18 09:00 Urine Culture - Preliminary Urine,Voided Assessment and Plan Assessment: Unstable angina status post cardiac catheterization and 90% stenosis. Status post coronary artery bypass graft Urinary retention. Started on Flomax. History of lower extremity DVT maintained on chronic Xarelto Diabetes type 2 Osteoarthritis Nicotine addiction Obstructive sleep apnea DVT prophylaxis patient is already on xarelto Plan: Patient will be continued on aspirin statins and metoprolol. Continue with Xarelto. Patient was started on Flomax. Continue the current management. Encourage ambulation and incentive spirometry. Cardiology is on board. Further recommendations based on the clinical course. Time with Patient: Greater than 30
--- NOTE | 2018-09-15 22:24 | P.PN ---
Subjective Progress Note Date: 09/15/18 Principal diagnosis: Status post CABG Unstable angina This is a pleasant 77-year-old gentleman with history of diabetes, osteoarthritis, hyperlipidemia, obstructive sleep apnea, bilateral lower extremity DVTs chronically on xarelto who presented to the hospital with symptoms of chest discomfort. He underwent a cardiac catheterization and was found to have 99% stenosis of the ostial portion of the LAD, he does have a normal left ventricular systolic function. Patient was not candidate for stent placement and hence was referred to cardiothoracic surgery. Patient is currently status post coronary artery bypass graft. 09/14/2018 Patient denied any complains of chest pain or shortness of breath. Able tablet. Chest tube has been removed. Hemoglobin is stable. Denied any nausea vomiting or abdominal pain. Patient did have some issues with urinary retention and urology was consulted. Otherwise no dizziness or lightheadedness. No fever no chills. Chest x-ray showed small left apical pneumothorax estimated to 10% 09/15/2018 Patient denied any complaints of chest pain or shortness of breath. Post void residual is around 1 55 mL. Patient was seen by urology and recommended to continue with Flomax. Urinary retention is likely due to postoperative. Otherwise patient is being discharged today. Current medications reviewed. Objective - Vital Signs Vital signs: Vital Signs Temp 97.9 F 09/15/18 12:00 Pulse 93 09/15/18 13:09 Resp 25 H 09/15/18 12:00 BP 109/47 09/15/18 12:00 Pulse Ox 96 09/15/18 12:00 Intake & Output 09/15/18 09/15/18 09/16/18 06:59 18:59 06:59 Output Total 760 0 Balance -760 0 Weight 71.2 kg 71.2 kg Output: Urine 760 0 Other: Voiding Method Bedside Commode Urinal ABP, PAP, CO, CI - Last Documented Arterial Blood Pressure 168/38 Pulmonary Artery Pressure 20/11 Cardiac Output 4.4 Cardiac Index 2.6 - Exam GENERAL EXAM: Awake and alert, pleasant, 77-year-old white male, on room air, no distress HEAD: Normocephalic/atraumatic. EYES: Normal reaction of pupils, equal size. Conjunctiva pink, sclera white. NOSE: Clear with pink turbinates. THROAT: No erythema or exudates. NECK: No masses, no JVD, no thyroid enlargement, no adenopathy. CHEST: No chest wall deformity. Symmetrical expansion. Midsternal incision clean dry and intact, approximated, covered with a surgical dressing, mediastinal chest tube has been discontinued, left pleural chest tube remains in place with the thin serosanguineous output. LUNGS: Equal air entry with no crackles, wheeze, rhonchi or dullness. CVS: Regular rate and rhythm, normal S1 and S2, no gallops, no murmurs, no rubs ABDOMEN: Soft, nontender. No hepatosplenomegaly, normal bowel sounds, no guarding or rigidity. EXTREMITIES: No clubbing, no edema, no cyanosis, 2+ pulses and upper and lower extremities. SCDs are in place on bilateral lower extremities MUSCULOSKELETAL: Muscle strength and tone normal. SPINE: No scoliosis or deformity SKIN: No rashes CENTRAL NERVOUS SYSTEM: No focal deficits, tone is normal in all 4 extremities. - Labs CBC & Chem 7: 09/15/18 04:48 09/15/18 04:48 Labs: Abnormal Lab Results - Last 24 Hours (Table) 09/15/18 09/15/18 09/15/18 Range/Units 04:48 04:48 06:49 RBC 2.91 L (4.30-5.90) m/uL Hgb 9.3 L (13.0-17.5) gm/dL Hct 27.7 L (39.0-53.0) % Neutrophils # 8.0 H (1.3-7.7) k/uL Glucose 122 H (74-99) mg/dL POC Glucose (mg/dL) 140 H (75-99) mg/dL Calcium 7.8 L (8.4-10.2) mg/dL 09/15/18 Range/Units 12:05 RBC (4.30-5.90) m/uL Hgb (13.0-17.5) gm/dL Hct (39.0-53.0) % Neutrophils # (1.3-7.7) k/uL Glucose (74-99) mg/dL POC Glucose (mg/dL) 165 H (75-99) mg/dL Calcium (8.4-10.2) mg/dL Microbiology - Last 24 Hours (Table) 09/14/18 09:00 Urine Culture - Preliminary Urine,Voided Pseudomonas spec Assessment and Plan Assessment: Unstable angina status post cardiac catheterization and 90% stenosis. Status post coronary artery bypass graft Urinary retention. Resolved. Started on Flomax. History of lower extremity DVT maintained on chronic Xarelto Diabetes type 2 Osteoarthritis Nicotine addiction Obstructive sleep apnea DVT prophylaxis patient is already on xarelto Plan: Patient will be continued on aspirin statins and metoprolol. Continue with Xarelto. Patient will be continued on Flomax. Continue the current management. Encourage ambulation and incentive spirometry. Cardiology is on board. Further recommendations based on the clinical course. Patient is being discharged today. Time with Patient: Greater than 30
== END 2018-09-15 14:52 | DRG 234 ==
LOC: EC 16:10 → 1SOBS 18:22 → 3SCARD 09-03 14:57 → OBSVTOIN 09-04 07:33 → 2SICU 09-07 18:13
PROVIDERS: ADMIT Hospitalist; ATTEND Surgery
PROC: 4A023N7 Measurement of Cardiac Sampling and Pressure, Left Heart, Percutaneous Approach (ICD-10-PCS; 2018-09-03)
PROC: B2111ZZ Fluoroscopy of Multiple Coronary Arteries using Low Osmolar Contrast (ICD-10-PCS; 2018-09-03)
PROC: B2151ZZ Fluoroscopy of Left Heart using Low Osmolar Contrast (ICD-10-PCS; 2018-09-03)
PROC: B44HZZZ Ultrasonography of Bilateral Lower Extremity Arteries (ICD-10-PCS; 2018-09-03)
PROC: 021009W Bypass Coronary Artery, One Artery from Aorta with Autologous Venous Tissue, Open Approach (ICD-10-PCS; 2018-09-08)
PROC: 06BQ4ZZ Excision of Left Saphenous Vein, Percutaneous Endoscopic Approach (ICD-10-PCS; 2018-09-08)
PROC: B246ZZ4 Ultrasonography of Right and Left Heart, Transesophageal (ICD-10-PCS; 2018-09-08)
PROC: 5A1221Z Performance of Cardiac Output, Continuous (ICD-10-PCS; 2018-09-08)
PROC: 30243R1 Transfusion of Nonautologous Platelets into Central Vein, Percutaneous Approach (ICD-10-PCS; 2018-09-08)
PROC: 02100Z9 Bypass Coronary Artery, One Artery from Left Internal Mammary, Open Approach (ICD-10-PCS; principal; 2018-09-08 09:00)
DX: I25.110 Atherosclerotic heart disease of native coronary artery with unstable angina pectoris (principal); D62 Acute posthemorrhagic anemia; J98.11 Atelectasis; E11.51 Type 2 diabetes mellitus with diabetic peripheral angiopathy without gangrene; I34.0 Nonrheumatic mitral (valve) insufficiency; J44.9 Chronic obstructive pulmonary disease, unspecified; N99.89 Other postprocedural complications and disorders of genitourinary system; R33.8 Other retention of urine; R55 Syncope and collapse; E78.5 Hyperlipidemia, unspecified; I10 Essential (primary) hypertension; G47.33 Obstructive sleep apnea (adult) (pediatric); M19.90 Unspecified osteoarthritis, unspecified site; Z79.01 Long term (current) use of anticoagulants; Z79.84 Long term (current) use of oral hypoglycemic drugs; F17.201 Nicotine dependence, unspecified, in remission; Z98.42 Cataract extraction status, left eye; Z86.718 Personal history of other venous thrombosis and embolism; Z99.89 Dependence on other enabling machines and devices; Z85.828 Personal history of other malignant neoplasm of skin; Z98.41 Cataract extraction status, right eye; Z88.5 Allergy status to narcotic agent; Z82.49 Family history of ischemic heart disease and other diseases of the circulatory system
CPT/HCPCS: 36415; 71045; 71046; 80048; 80053; 80061; 80074; 81001; 81003; 82272; 82330; 82550; 82553; 82805; 83036; 83735; 83880; 84443; 84478; 84484; 85025; 85379; 85384; 85520; 85610; 85730; 86022; 86850; 86891; 86900; 86901; 86920; 87070; 87077; 87086; 87186; 93005; 93306; 93458; 93880; 93970; 94002; 94150; 94640; 99285

== ENCOUNTER → 2018-11-05 | Outpatient (CLI) | payer MEDICARE, BC ==
--- NOTE | 2018-11-05 14:23 | XR ---
EXAMINATION TYPE: XR chest 2V DATE OF EXAM: 11/05/2018 COMPARISON: 09/15/2018 TECHNIQUE: PA and lateral views submitted. HISTORY: Shortness of breath FINDINGS: Postsurgical changes with biapical pleural thickening. No overt failure. There is bilateral lower lob e infiltrate and small effusion. Hypertrophic and degenerative change of the spine. Hyperinflation donaldson ggests COPD. No overt failure. IMPRESSION: 1. Bilateral lower lobe infiltrate and small effusion.
== END ==
LOC: RADXRMAIN 13:05
PROVIDERS: ATTEND Internal Medicine Gastroenterology
DX: J90 Pleural effusion, not elsewhere classified (principal); R91.8 Other nonspecific abnormal finding of lung field
CPT/HCPCS: 71046

== ENCOUNTER → 2019-01-10 | Outpatient (CLI) | payer MEDICARE, BC ==
[2019-01-11 00:52] LABS: Hemoglobin A1C 7.6 % (4.0-6.0)
== END ==
LOC: LABWHC1 15:26
PROVIDERS: ATTEND Internal Medicine
DX: E11.9 Type 2 diabetes mellitus without complications (principal)
CPT/HCPCS: 36415; 82728; 82947; 83036; 83540

== ENCOUNTER → 2019-11-11 | Outpatient (CLI) | payer MEDICARE, BC ==
[2019-11-11 09:11] LABS: HCT 45.1 % (39.0-53.0); HGB 14.7 gm/dL (13.0-17.5); MCH 30.3 pg (25.0-35.0); MCHC 32.6 g/dL (31.0-37.0); MCV 93.1 fL (80.0-100.0); Platelet Count 262 k/uL (150-450); RBC 4.85 m/uL (4.30-5.90); RDW 13.5 % (11.5-15.5); WBC 7.3 k/uL (3.8-10.6)
[2019-11-11 16:21] LABS: African American GFR (CKD) 83.8 (60.0-200.0); Albumin 4.2 g/dL (3.80-4.90); Anion Gap 7.4 mmol/L (4.00-12.00); Bilirubin, Conjugated 0.2 mg/dL (0.20-0.40); Bilirubin,Unconjugated 0.2 mg/dL; Calcium 9.3 mg/dL (8.7-10.3); Carbon Dioxide 30.6 mmol/L (21.6-31.8); Chol/HDL Ratio 3.8; Globulin 2.1 g/dL (1.6-3.3); LDL Cholesterol,Calculated 93.8 mg/dL (0.0-131.0); Non-African American GFR(CKD) 72.3 (60.0-200.0); Total Bilirubin 0.4 mg/dL (0.2-1.2); Total Protein 6.3 g/dL (6.2-8.2); VLDL Calculation 18.2 mg/dL (5.00-40.00)
[2019-11-11 17:12] LABS: Hemoglobin A1C 8.5 % (4.0-6.0)
== END | disposition home or self-care (01) ==
LOC: LABWHC1 07:57
PROVIDERS: ATTEND Nuclear Medicine Nuclear Cardiology
DX: I25.810 Atherosclerosis of coronary artery bypass graft(s) without angina pectoris (principal); E23.2 Diabetes insipidus; I10 Essential (primary) hypertension; E78.2 Mixed hyperlipidemia; E11.8 Type 2 diabetes mellitus with unspecified complications
CPT/HCPCS: 36415; 80048; 80061; 80076; 83036; 84443; 85027

== ENCOUNTER 2019-12-09 14:05 | Inpatient (IN) | payer MEDICARE, BC ==
--- NOTE | 2019-12-09 14:34 | ED ---
General Adult HPI - General Chief complaint: Neuro Symptoms/Deficit Stated complaint: Weakness Time Seen by Provider: 12/09/19 14:08 Source: patient, EMS, RN notes reviewed, old records reviewed Mode of arrival: EMS Limitations: no limitations - History of Present Illness Initial comments: 79-year-old male presenting for evaluation of left-sided weakness. Patient's symptoms have progressed over the course of greater than 48 hours. He did initially developed left leg weakness in his had multiple falls denying any pain complaints, no injury reported from the falls. Over the past 24 hours he developed left arm weakness. He has history of carotid blockage. He is currently on Xarelto, he is uncertain why he is taking this medication. Denies fever. Denies cough. Denies abdominal pain. Denies chest pain. Denies vomiting or diarrhea. No previous history of TIA or CVA. - Related Data Home Medications Medication Instructions Recorded Confirmed Artificial Tears-Hypromellose 1 - 2 drops BOTH EYES DAILY PRN 09/02/18 09/02/18 [Artificial Tear Drops] Previous Rx's Medication Instructions Recorded Acetaminophen Tab [Tylenol] 325 mg PO Q6HR PRN tab 09/15/18 Acetaminophen Tab [Tylenol] 650 mg PO Q6HR PRN tab 09/15/18 Aspirin 81 mg PO DAILY chew 09/15/18 Atorvastatin [Lipitor] 80 mg PO DAILY tab 09/15/18 INSULIN ASPART (NovoLOG) [NovoLOG 0 unit SQ ACHS vial 09/15/18 (formulary)] INSULIN ASPART (NovoLOG) [NovoLOG 9 unit SQ AC-SUPPER vial 09/15/18 (formulary)] Insuln Asp Prt/Insulin Aspart 37 unit SQ AC-BRKFST vial 09/15/18 [NovoLOG MIX 70-30 VIAL] Ipratropium-Albuterol Nebulize 3 ml INHALATION RT-Q2H PRN 09/15/18 [Duoneb 0.5 mg-3 mg/3 ml Soln] ampul.neb Ipratropium-Albuterol Nebulize 3 ml INHALATION RT-QID ampul.neb 09/15/18 [Duoneb 0.5 mg-3 mg/3 ml Soln] Magnesium Hydroxide [Milk of 2,400 mg PO BID PRN ml 09/15/18 Magnesia Concentrate] Metoprolol Tartrate [Lopressor] 50 mg PO BID tab 09/15/18 Pantoprazole [Protonix] 40 mg PO AC-BRKFST tablet. 09/15/18 Rivaroxaban [Xarelto] 20 mg PO W/SUPPER tab 09/15/18 Tamsulosin [Flomax] 0.4 mg PO PC-BRKFST cap.er.24h 09/15/18 Allergies Allergy/AdvReac Type Severity Reaction Status Date / Time codeine AdvReac Nausea & Verified 09/02/18 16:44 Vomiting Review of Systems ROS Statement: Those systems with pertinent positive or pertinent negative responses have been documented in the HPI. ROS Other: All systems not noted in ROS Statement are negative. Past Medical History Past Medical History: Coronary Artery Disease (CAD), Cancer, Diabetes Mellitus, Deep Vein Thrombosis (DVT), Osteoarthritis (OA), Sleep Apnea/CPAP/BIPAP Additional Past Medical History / Comment(s): hx basal cell skin cancer, bone spurs in lt shoulder History of Any Multi-Drug Resistant Organisms: None Reported Past Surgical History: Orthopedic Surgery Additional Past Surgical History / Comment(s): Rotator Cuff Surgery. left foot surgery. bilateral cataract surgery. gum surgery. hx. of removal of 3 fungal toenails Past Anesthesia/Blood Transfusion Reactions: No Reported Reaction Past Psychological History: No Psychological Hx Reported Smoking Status: Former smoker Past Alcohol Use History: None Reported Past Drug Use History: None Reported - Past Family History Mother Family Medical History: No Reported History Additional Family Medical History / Comment(s): Mother of a "blood clot" Father Family Medical History: Coronary Artery Disease (CAD) General Exam Limitations: no limitations General appearance: alert, in no apparent distress Head exam: Present: atraumatic, normocephalic Eye exam: Present: normal appearance, PERRL ENT exam: Present: normal exam Neck exam: Present: normal inspection. Absent: tenderness, meningismus Respiratory exam: Present: normal lung sounds bilaterally. Absent: respiratory distress, wheezes Cardiovascular Exam: Present: regular rate, normal rhythm GI/Abdominal exam: Present: soft. Absent: distended, tenderness, guarding Extremities exam: Present: normal inspection, normal capillary refill. Absent: pedal edema Neurological exam: Present: alert, oriented X3, motor sensory deficit (Left upper and lower extremity weakness. ) Course Vital Signs 12/09/19 12/09/19 12/09/19 14:10 14:11 14:20 Temperature 98.3 F Pulse Rate 67 76 64 Respiratory 18 18 18 Rate Blood Pressure 195/82 195/82 O2 Sat by Pulse 100 99 99 Oximetry 12/09/19 12/09/19 12/09/19 14:30 14:40 15:10 Temperature Pulse Rate 63 62 78 Respiratory 17 17 19 Rate Blood Pressure 165/82 169/79 O2 Sat by Pulse 98 98 97 Oximetry 12/09/19 15:30 Temperature Pulse Rate 75 Respiratory 18 Rate Blood Pressure 137/81 O2 Sat by Pulse 98 Oximetry EKG Findings - EKG Comments: EKG Findings:: EKG: Normal sinus rhythm, rate of 70, OK interval 158, QRS duration 102, QTC 423, no ST segment elevation Medical Decision Making - Medical Decision Making 79-year-old male presenting with 48 hours of left-sided weakness. NIH of 6, patient is not a TPA candidate given the amount of time as well as the fact that he is anticoagulated on Xarelto. Workup in the emergency department: Head CT showed chronic ischemic changes, no acute cranial hemorrhage. CT angiography showing less than 50% stenosis in the right carotid artery, no acute occlusion. Chest x-rays negative for focal pneumonia, no acute findings. Normal CBC, normal CMP. Patient will be placed on aspirin. He will be admitted for stroke workup. I discussed case with the admitting physician Dr. Elias, aware that there is no neurology coverage this weekend and no ability to transfer this patient to outside facility given the current coronavirus pandemic. - Lab Data Result diagrams: 12/09/19 14:13 12/09/19 14:13 Lab Results 12/09/19 12/09/19 12/09/19 Range/Units 14:13 14:13 14:13 WBC 5.8 (3.8-10.6) k/uL RBC 4.53 (4.30-5.90) m/uL Hgb 13.9 (13.0-17.5) gm/dL Hct 41.8 (39.0-53.0) % MCV 92.5 (80.0-100.0) fL MCH 30.7 (25.0-35.0) pg MCHC 33.2 (31.0-37.0) g/dL RDW 13.8 (11.5-15.5) % Plt Count 202 (150-450) k/uL Neutrophils % 66 % Lymphocytes % 23 % Monocytes % 6 % Eosinophils % 1 % Basophils % 1 % Neutrophils # 3.8 (1.3-7.7) k/uL Lymphocytes # 1.3 (1.0-4.8) k/uL Monocytes # 0.4 (0-1.0) k/uL Eosinophils # 0.1 (0-0.7) k/uL Basophils # 0.0 (0-0.2) k/uL PT 9.9 (9.0-12.0) sec INR 1.0 (<1.2) APTT 22.1 (22.0-30.0) sec Sodium 138 (137-145) mmol/L Potassium 4.7 (3.5-5.1) mmol/L Chloride 104 (98-107) mmol/L Carbon Dioxide 25 (22-30) mmol/L Anion Gap 9 mmol/L BUN 15 (9-20) mg/dL Creatinine 0.81 (0.66-1.25) mg/dL Est GFR (CKD-EPI)AfAm >90 (>60 ml/min/1.73 sqM) Est GFR (CKD-EPI)NonAf 85 (>60 ml/min/1.73 sqM) Glucose 149 H (74-99) mg/dL Calcium 8.8 (8.4-10.2) mg/dL Total Bilirubin 0.6 (0.2-1.3) mg/dL AST 27 (17-59) U/L ALT 22 (4-49) U/L Alkaline Phosphatase 52 (38-126) U/L Troponin I (0.000-0.034) ng/mL Total Protein 6.6 (6.3-8.2) g/dL Albumin 3.8 (3.5-5.0) g/dL 12/09/19 Range/Units 14:13 WBC (3.8-10.6) k/uL RBC (4.30-5.90) m/uL Hgb (13.0-17.5) gm/dL Hct (39.0-53.0) % MCV (80.0-100.0) fL MCH (25.0-35.0) pg MCHC (31.0-37.0) g/dL RDW (11.5-15.5) % Plt Count (150-450) k/uL Neutrophils % % Lymphocytes % % Monocytes % % Eosinophils % % Basophils % % Neutrophils # (1.3-7.7) k/uL Lymphocytes # (1.0-4.8) k/uL Monocytes # (0-1.0) k/uL Eosinophils # (0-0.7) k/uL Basophils # (0-0.2) k/uL PT (9.0-12.0) sec INR (<1.2) APTT (22.0-30.0) sec Sodium (137-145) mmol/L Potassium (3.5-5.1) mmol/L Chloride (98-107) mmol/L Carbon Dioxide (22-30) mmol/L Anion Gap mmol/L BUN (9-20) mg/dL Creatinine (0.66-1.25) mg/dL Est GFR (CKD-EPI)AfAm (>60 ml/min/1.73 sqM) Est GFR (CKD-EPI)NonAf (>60 ml/min/1.73 sqM) Glucose (74-99) mg/dL Calcium (8.4-10.2) mg/dL Total Bilirubin (0.2-1.3) mg/dL AST (17-59) U/L ALT (4-49) U/L Alkaline Phosphatase (38-126) U/L Troponin I <0.012 (0.000-0.034) ng/mL Total Protein (6.3-8.2) g/dL Albumin (3.5-5.0) g/dL Critical Care Time Critical Care Time: Yes Total Critical Care Time: 35 Disposition Clinical Impression: Cerebrovascular accident (CVA) Disposition: ADMITTED IP TO THIS [facility] Condition: Stable Is patient prescribed a controlled substance at d/c from ED?: No Referrals: Herman Molina MD [Primary Care Provider] - 1-2 days Decision to Admit Reason: Admit from EC Decision Date: 12/09/19 Decision Time: 16:22
--- NOTE | 2019-12-09 15:18 | CT ---
EXAMINATION TYPE: CT brain wo con for TPA DATE OF EXAM: 12/09/2019 COMPARISON: None INDICATION: weakness, fall, left sided numbness DLP: 1074.9 mGycm, Automated exposure control for dose reduction was used. CONTRAST: None CT of the brain is performed utilizing 3 mm thick sections through the posterior fossa and 3 mm thick sections through the remaining calvarium. Study is performed within 24 hours of arrival to the hosp ital. No abnormal hyperdensity is present to suggest an acute intracranial hemorrhage. No mass lesion is evident. Physiologic basal ganglion calcifications present. No acute infarcts are evident. Patchy periventricular white matter hypodensity is present, likely on the basis of chronic white matter ischemic change. Ventricles and sulci are prominent for the patient age. Paranasal sinuses and mastoid air cells within the [id number] are clear. IMPRESSIONS: 1. Age-related atrophy with chronic appearing periventricular white matter ischemic type changes.
--- NOTE | 2019-12-09 15:22 | XR ---
EXAMINATION TYPE: XR chest 2V DATE OF EXAM: 12/09/2019 COMPARISON: 11/05/2018 INDICATION: Altered mental status left side weakness TECHNIQUE: Single frontal view of the chest is obtained. FINDINGS: The heart size is normal. The pulmonary vasculature is normal. The lungs are clear. Sternotomy wires are present from prior CABG. Posterior pleural effusion may be present on the latera l projection. This would be diminished from the comparison. IMPRESSION: 1. Small posterior pleural effusion, likely on the left. This would be diminished from the comparison .
[2019-12-09 16:02] LABS: Basophils % (A) 1 %; Eosinophils # (A) 0.1 k/uL (0-0.7); Eosinophils % (A) 1 %; HCT 41.8 % (39.0-53.0); HGB 13.9 gm/dL (13.0-17.5); Lymphocytes # (A) 1.3 k/uL (1.0-4.8); Lymphocytes % (A) 23 %; MCH 30.7 pg (25.0-35.0); MCHC 33.2 g/dL (31.0-37.0); MCV 92.5 fL (80.0-100.0); Mean Platelet Volume 7.5; Monocytes # (A) 0.4 k/uL (0-1.0); Monocytes % (A) 6 %; Neutrophils # (A) 3.8 k/uL (1.3-7.7); Neutrophils % (A) 66 %; Platelet Count 202 k/uL (150-450); RBC 4.53 m/uL (4.30-5.90); RDW 13.8 % (11.5-15.5); WBC 5.8 k/uL (3.8-10.6)
--- NOTE | 2019-12-09 16:05 | CT ---
EXAMINATION TYPE: CT angio head neck DATE OF EXAM: 12/09/2019 HISTORY: weakness, fall, left sided numbness COMPARISON: None CT DLP: 420 mGycm. Automated Exposure Control for Dose Reduction was Utilized. TECHNIQUE: CTA scan of the neck is performed with IV Contrast, patient injected with 65cc mL of Isov ue 370, axial images are obtained, coronal and sagittal reformatted images are reviewed. Three-D wes nstructed images are created on an independent workstation and reviewed. Source images are reviewed. FINDINGS: Carotid/Vascular Structures: There is a three-vessel arch. The left common carotid artery and innomin ate artery have a very proximally placed origin left vertebral artery appears dominant. There is poor visualization of the right vertebral artery although intermittent contrast within the vessel is iden tified to the skull base. There is some atheromatous plaque and calcification at the carotid bifurcat ions. Less than 50% narrowing at the origin of the right internal carotid artery is evident. Milder p laquing is at the left internal carotid artery. Cervical of [place]: Posterior cerebral vasculature is unremarkable. Internal carotid arteries bifurc ate normally into A1 and M1 segments. A2 segments are normal. The anterior communicating artery is pa tent. Right posterior communicating artery is not clearly identified. There may be a small left poste rior communicating artery although direct communication with the posterior circulation is difficult t o confirm. There are 2 areas of some subtle fusiform prominence of the basilar artery. This includes the proxima l portion with an AP dimension of 3.6 mm. The mid basilar artery has a transverse dimension of 2.6 cm . The distal portion of the basilar artery measures 2.8 mm. No arriaza aneurysm is evident. Other: Portion of the thyroid visualized is normal. Vocal cord level appear symmetrical. No suspiciou s adenopathy within the neck is evident. Parotid glands and submandibular glands appear unremarkable. A few small lymph nodes are at the aortopulmonic window. Some mild scarring may be in the posterior right apex. IMPRESSION: 1. No flow-limiting stenosis bilateral carotid bifurcations. Atheromatous plaquing is present with le ss than 50% narrowing greater on the right. 2. Basilar artery has some minimal fusiform prominence at the origin. The distal basilar artery measu res slightly greater than the midportion may be within measurement error. No basilar tip arriaza aneury sm or dolichoectasia is otherwise evident. 3. [place] otherwise appears within normal limits.
[2019-12-09 16:08] LABS: ALT 22 U/L (4-49); AST 27 U/L (17-59); African American GFR (CKD) >90 (>60 ml/min/1.73 sqM); Albumin 3.8 g/dL (3.5-5.0); Alkaline Phosphatase 52 U/L (38-126); Anion Gap 9 mmol/L; Blood Urea Nitrogen 15 mg/dL (9-20); Calcium 8.8 mg/dL (8.4-10.2); Carbon Dioxide 25 mmol/L (22-30); Chloride 104 mmol/L (98-107); Glucose 149 mg/dL (74-99); Non-African American GFR(CKD) 85 (>60 ml/min/1.73 sqM); Potassium 4.7 mmol/L (3.5-5.1); Sodium 138 mmol/L (137-145); Total Bilirubin 0.6 mg/dL (0.2-1.3); Total Protein 6.6 g/dL (6.3-8.2)
[2019-12-09 16:10] LABS: Partial Thromboplastin Time 22.1 sec (22.0-30.0); Prothrombin Time 9.9 sec (9.0-12.0)
[2019-12-09] MEDS ORDERED: ASPIRIN 325 MG TAB PO STA (16:17)
[2019-12-09] MEDS ORDERED: SODIUM CHLORIDE 0.9% 1,000 ML IV ONE (17:39)
[2019-12-09] MEDS: SODIUM CHLORIDE 0.9% 1,000 ML IV SCH (17:40)
[2019-12-09] MEDS ORDERED: RIVAROXABAN 20 MG TAB PO SCH (18:00)
[2019-12-09] MEDS ORDERED: PNEUMOCOCCAL VACC-PNEUMOVAX 23 25 MCG/0.5 ML VIAL IM ONE (20:00)
[2019-12-09 20:22] LABS: Glucose,Whole Blood 203 mg/dL (75-99)
[2019-12-10] MEDS: SODIUM CHLORIDE 0.9% 1,000 ML IV SCH ×3 (05:46→23:59)
[2019-12-10 06:11] LABS: Glucose,Whole Blood 124 mg/dL (75-99)
[2019-12-10] MEDS: INSULIN ASPART (NovoLOG) 100 UNIT/ML VIAL SQ SCH ×4 (06:12→21:30)
[2019-12-10 07:16] LABS: Cholesterol 127 mg/dL (<200); HDL Cholesterol 30 mg/dL (40-60); LDL Cholesterol,Calculated 80 mg/dL (0-99); Triglycerides 85 mg/dL (<150)
[2019-12-10] MEDS: ATORVASTATIN 80 MG TAB PO SCH (09:18)
[2019-12-10 11:52] LABS: Glucose,Whole Blood 165 mg/dL (75-99)
[2019-12-10 12:06] VITALS: BMI 18.8
--- NOTE | 2019-12-10 12:56 | ECHOF ---
Referral Reason:Thrombus MEASUREMENTS -------- HEIGHT: 180.3 cm WEIGHT: 60.8 kg BP: 129/62 RVIDd: 2.8 cm (< 3.3) IVSd: 1.2 cm (0.6 - 1.1) LVIDd: 4.4 cm (3.9 - 5.3) LVPWd: 1.1 cm (0.6 - 1.1) IVSs: 1.3 cm LVIDs: 2.9 cm LVPWs: 1.6 cm LA Diam: 3.8 cm (2.7 - 3.8) LAESV Index (A-L): 27.00 ml/m Ao Diam: 3.1 cm (2.0 - 3.7) AV Cusp: 2.0 cm (1.5 - 2.6) MV EXCURSION: 16.703 mm (> 18.000) MV EF SLOPE: 44 mm/s (70 - 150) EPSS: 0.5 cm MV E Deacon: 1.14 m/s MV DecT: 199 ms MV A Deacon: 0.95 m/s MV E/A Ratio: 1.20 RAP: 5.00 mmHg RVSP: 29.63 mmHg FINDINGS -------- Sinus rhythm. This was a technically adequate study. The left ventricular size is normal. There is borderline concentric left ventricular hypertrophy. Overall left ventricular systolic function is normal with, an EF between 60 - 65 %. The right ventricle is normal in size. Normal LA size by volume 22+/-6 ml/m2. The right atrium is normal in size. Interatrial and interventricular septum intact. The aortic valve is trileaflet and appears structurally normal. Trace to mild aortic regurgitation. There is trace to mild mitral regurgitation. Mild tricuspid regurgitation present. Right ventricular systolic pressure is normal at < 35 mmHg. Trace/mild (physiologic) pulmonic regurgitation. The aortic root size is normal. Normal inferior vena cava with normal inspiratory collapse consistent with estimated right atrial pre ssure of 5 mmHg. There is no pericardial effusion. CONCLUSIONS -------- 1. Sinus rhythm. 2. This was a technically adequate study. 3. The left ventricular size is normal. 4. There is borderline concentric left ventricular hypertrophy. 5. Overall left ventricular systolic function is normal with, an EF between 60 - 65 %. 6. The right ventricle is normal in size. 7. Normal LA size by volume 22+/-6 ml/m2. 8. The right atrium is normal in size. 9. Interatrial and interventricular septum intact. 10. The aortic valve is trileaflet and appears structurally normal. 11. Trace to mild aortic regurgitation. 12. There is trace to mild mitral regurgitation. 13. Mild tricuspid regurgitation present. 14. Right ventricular systolic pressure is normal at < 35 mmHg. 15. Trace/mild (physiologic) pulmonic regurgitation. 16. The aortic root size is normal. 17. Normal inferior vena cava with normal inspiratory collapse consistent with estimated right atrial pressure of 5 mmHg. 18. There is no pericardial effusion. VENEER SANDER: Nemo Benedict RDCS
--- NOTE | 2019-12-10 13:34 | MR ---
EXAMINATION TYPE: MR brain wo/w con DATE OF EXAM: 12/10/2019 1:26 PM COMPARISON: NONE HISTORY: weakness, left sided numbness, fall, CVA TECHNIQUE: Multiplanar, multiecho imaging of the brain was obtained with and without intravenous adm inistration of 7 mL intravenous Gadavist. FINDINGS: Midline structures are unremarkable. There is a normal craniocervical junction. There is an area of increased signal in the diffusion-weighted images in the external capsule and cor renate radiata on the right posteriorly. No other areas of restricted diffusion are visualized. This lik oliva represents an area subacute infarction. There are normal vascular flow voids. The orbits are unremarkable. There is no evidence of a CP angle mass lesion. On T2-weighted images in the same areas of restricted diffusion there is abnormal T2 and FLAIR signal . There are also other punctate areas and confluent areas of increased FLAIR signal throughout both c erebral hemispheres likely on the basis of small vessel disease and chronic ischemic change. There is no mass effect or midline shift identified. I do not see evidence of intracranial blood. Following intravenous administration of gadolinium, I do not see evidence of abnormal enhancement. IMPRESSION: 1. AREA OF SUBACUTE ISCHEMIA IN THE POSTERIOR ASPECT OF THE EXTERNAL CAPSULE ON THE RIGHT EXTENDING I NTO THE GAN RADIATA ON THE RIGHT. 2. PUNCTATE AND CONFLUENT PERIVENTRICULAR WHITE MATTER DISEASE LIKELY ON THE BASIS OF SMALL VESSEL DI SEASE AND CHRONIC ISCHEMIC CHANGE.
[2019-12-10] MEDS: ASPIRIN 325 MG TAB PO SCH (15:50)
--- NOTE | 2019-12-10 16:37 | P.HPIM ---
History of Present Illness H&P Date: 12/10/19 Chief Complaint: Left-sided weakness 79-year-old male presenting for evaluation of left-sided weakness. Patient's symptoms have progressed over the course of greater than 48 hours. He did initially developed left leg weakness in his had multiple falls denying any pain complaints, no injury reported from the falls. Over the past 24 hours he developed left arm weakness. He has history of carotid blockage. He is currently on Xarelto, he is uncertain why he is taking this medication. Denies fever. Denies cough. Denies abdominal pain. Denies chest pain. Denies vomi ting or diarrhea. No previous history of TIA or CVA. Patient had an age of 62 presented to ED but deemed not a TPA candidate due to being outside the window And also patient anticoagulated with Xarelto; workup in ED with a CT of head showed no acute changes only chronic ischemic changes; CT angiography showing less than 50% stenosis in the right carotid artery without any occlusion; chest x-ray was negative for pneumonia; patient was started on aspirin and admitted to the hospital for stroke workup; hospital does not have any neurology coverage for the weekend and according to documentation patient was not able to be transferred to an outside facility given current coronavirus pandemic Review of Systems REVIEW OF SYSTEMS: CONSTITUTIONAL: No fever, no malaise, no fatigue. HEENT: No recent visual problems or hearing problems. Denied any sore throat. CARDIOVASCULAR: No chest pain, orthopnea, PND, no palpitations, no syncope. PULMONARY: No shortness of breath, no cough, no hemoptysis. GASTROINTESTINAL: No diarrhea, no nausea, no vomiting, no abdominal pain. NEUROLOGICAL: Left-sided weakness. HEMATOLOGICAL: Denies any bleeding or petechiae. GENITOURINARY: Denies any burning micturition, frequency, or urgency. MUSCULOSKELETAL/RHEUMATOLOGICAL: Denies any joint pain, swelling, or any muscle pain. ENDOCRINE: Denies any polyuria or polydipsia. The rest of the 14-point review of systems is negative. Past Medical History Past Medical History: Coronary Artery Disease (CAD), Cancer, CVA/TIA, Diabetes Mellitus, Deep Vein Thrombosis (DVT), Osteoarthritis (OA), Sleep Apnea/C PAP/BIPAP Additional Past Medical History / Comment(s): hx basal cell skin cancer, bone spurs in lt shoulder History of Any Multi-Drug Resistant Organisms: None Reported Past Surgical History: Coronary Bypass/CABG, Orthopedic Surgery Additional Past Surgical History / Comment(s): Rotator Cuff Surgery. left foot surgery. bilateral cataract surgery. gum surgery. hx. of removal of 3 fungal toenails cabg sep 2018 Past Anesthesia/Blood Transfusion Reactions: No Reported Reaction Past Psychological History: No Psychological Hx Reported Smoking Status: Former smoker Past Alcohol Use History: None Reported Additional Past Alcohol Use History / Comment(s): smoker 20 years 1ppd quit age 50 Past Drug Use History: None Reported - Past Family History Mother Family Medical History: No Reported History Additional Family Medical History / Comment(s): Mother of a "blood clot" Father Family Medical History: Coronary Artery Disease (CAD) Medications and Allergies Home Medications Medication Instructions Recorded Confirmed Type Aspirin 81 mg PO W/LUNCH 12/09/19 12/09/19 History Ferrous Sulfate [Feosol] 325 mg PO DAILY 12/09/19 12/09/19 History Rivaroxaban [Xarelto] 20 mg PO W/LUNCH 12/09/19 12/09/19 History metFORMIN HCL 1,000 mg PO BID-W/MEALS 12/09/19 12/09/19 History metFORMIN HCL [Glucophage] 500 mg PO W/LUNCH 12/09/19 12/09/19 History Allergies Allergy/AdvReac Type Severity Reaction Status Date / Time codeine AdvReac Nausea & Verified 12/09/19 19:18 Vomiting Physical Exam Vitals: Vital Signs Temp Pulse Pulse Resp BP BP Pulse Ox 12/10/19 08:00 97.8 F 67 16 142/67 96 12/10/19 04:00 97.9 F 68 16 129/62 97 12/10/19 00:00 97.8 F 68 19 138/85 97 12/09/19 20:00 97.9 F 68 19 153/73 97 12/09/19 17:47 18 12/09/19 17:40 18 12/09/19 15:30 75 18 137/81 98 12/09/19 15:10 78 19 97 12/09/19 14:40 62 17 169/79 98 12/09/19 14:30 63 17 165/82 98 12/09/19 14:20 64 18 195/82 99 12/09/19 14:11 76 18 99 12/09/19 14:10 98.3 F 67 18 195/82 100 Intake and Output 12/09/19 12/10/19 12/10/19 22:59 06:59 14:59 Intake Total 120 Output Total 600 300 600 Balance -600 -300 -480 Intake: Oral 120 Output: Urine 600 300 600 Other: Voiding Method Urinal Urinal Urinal # Voids 1 0 Weight 74.843 kg 61.2 kg PHYSICAL EXAMINATION: GENERAL: The patient is alert and oriented x3, not in any acute distress. Well developed, well nourished. HEENT: Pupils are round and equally reacting to light. EOMI. No scleral icterus. No conjunctival pallor. Normocephalic, atraumatic. No pharyngeal erythema. No thyromegaly. CARDIOVASCULAR: S1 and S2 present. No murmurs, rubs, or gallops. PULMONARY: Chest is clear to auscultation, no wheezing or crackles. ABDOMEN: Soft, nontender, nondistended, normoactive bowel sounds. No palpable organomegaly. MUSCULOSKELETAL: No joint swelling or deformity. EXTREMITIES: No cyanosis, clubbing, or pedal edema. NEUROLOGICAL: Left-sided weakness. SKIN: No rashes. Results CBC & Chem 7: 12/09/19 14:13 12/09/19 14:13 Labs: Abnormal Lab Results - Last 24 Hours (Table) 12/09/19 12/09/19 12/10/19 Range/Units 14:13 20:21 06:10 Glucose 149 H (74-99) mg/dL POC Glucose (mg/dL) 203 H 124 H (75-99) mg/dL HDL Cholesterol (40-60) mg/dL 12/10/19 Range/Units 06:31 Glucose (74-99) mg/dL POC Glucose (mg/dL) (75-99) mg/dL HDL Cholesterol 30 L (40-60) mg/dL Thrombosis Risk Factor Assmnt - Choose All That Apply Each Risk Factor Represents 3 Points: Age 75 years or older Thrombosis Risk Factor Assessment Total Risk Factor Score: 3 Thrombosis Risk Factor Assessment Level: Moderate Risk Assessment and Plan Assessment: 1. Left-sided weakness; - We will order stat MRI of the head with and without contrast- 80 of subacute ischemia in posterior aspect of external capsule on the right extending into the coronary radiata on the right - CT of head and neck is unremarkable; 2-D echocardiogram is ordered and pending; we will order TSH, folic acid and B12 levels - We will have neurology see patient on Thursday when coverage is available - Continue with aspirin 325 mg daily; I will hold off on Xarelto for 24 hours to prevent hemorrhagic conversion of stroke; continue with Lipitor 80 mg by mouth daily at bedtime 2. Hyperglycemia/ diabetes mellitus; monitor Accu-Cheks every before meals and at bedtime with insulin sliding scale 3. Uncontrolled hypertension; allow permissive hypertension; we can use IV hydralazine if SBP is greater than 220 along with diastolic blood pressure was 120 4. History of DVT; patient takes Xarelto 20 mg daily; we will restart patient in next 24 hours 5. Sleep apnea; uses CPAP at home 6. BPH; continue with Flomax DVT prophylaxis; SCDs; hold off on Xarelto for another 24 hours CODE STATUS; full code Time with Patient: Greater than 30
[2019-12-10 16:47] LABS: Glucose,Whole Blood 191 mg/dL (75-99)
[2019-12-10 20:57] LABS: Glucose,Whole Blood 251 mg/dL (75-99)
[2019-12-10 23:22] LABS: Folate, Serum 14.4 ng/mL
[2019-12-11 06:13] LABS: Glucose,Whole Blood 165 mg/dL (75-99)
[2019-12-11] MEDS: INSULIN ASPART (NovoLOG) 100 UNIT/ML VIAL SQ SCH ×4 (06:15→20:49)
[2019-12-11 06:25] LABS: African American GFR (CKD) >90 (>60 ml/min/1.73 sqM); Anion Gap 6 mmol/L; Blood Urea Nitrogen 9 mg/dL (9-20); Calcium 8.5 mg/dL (8.4-10.2); Carbon Dioxide 22 mmol/L (22-30); Chloride 108 mmol/L (98-107); Glucose 170 mg/dL (74-99); Non-African American GFR(CKD) 88 (>60 ml/min/1.73 sqM); Potassium 4.2 mmol/L (3.5-5.1); Sodium 136 mmol/L (137-145)
[2019-12-11] MEDS: ASPIRIN 325 MG TAB PO SCH (08:17)
[2019-12-11] MEDS: ATORVASTATIN 80 MG TAB PO SCH (08:17)
[2019-12-11] MEDS: SODIUM CHLORIDE 0.9% 1,000 ML IV SCH ×2 (08:17→17:09)
[2019-12-11 12:02] LABS: Glucose,Whole Blood 184 mg/dL (75-99)
--- NOTE | 2019-12-11 12:29 | XR ---
EXAMINATION TYPE: XR chest 1V portable DATE OF EXAM: 12/11/2019 HISTORY: r/o aspiration. REFERENCE: Previous study dated 12/09/2019. FINDINGS: There has been a midline sternotomy. There is a small left effusion, unchanged from previous. The lungs are clear. The heart is not enlarg ed. IMPRESSION: SMALL LEFT PLEURAL EFFUSION.
[2019-12-11] MEDS: CYANOCOBALAMIN 500 MCG TAB PO SCH ×2 (13:20→14:01)
[2019-12-11] MEDS: RIVAROXABAN 20 MG TAB PO SCH (14:01)
--- NOTE | 2019-12-11 16:10 | P.PN ---
Subjective Progress Note Date: 12/11/19 Principal diagnosis: Left-sided weakness; subacute infarct right external capsule and jacinto radiate 79-year-old male presenting for evaluation of left-sided weakness. Patient's s ymptoms have progressed over the course of greater than 48 hours. He did initially developed left leg weakness in his had multiple falls denying any pain complaints, no injury reported from the falls. Over the past 24 hours he developed left arm weakness. He has history of carotid blockage. He is currently on Xarelto, he is uncertain why he is taking this medication. Denies fever. Denies cough. Denies abdominal pain. Denies chest pain. Denies vomiting or diarrhea. No previous history of TIA or CVA. 12/11/2019 Patient is seen and evaluated in room at bedside; had an episode of a coughing spell while drinking water this morning; patient has been made nothing by mouth with medications crushed in applesauce; CIRCUS SUPERVISOR evaluation is requested and pending; patient continues to have low-grade temperature of 99.6; stat chest x-ray was done which shows small left pleural effusion; we will monitor CBC and pro- calcitonin levels; we will hold off on antibiotic therapy till testing is complete PT/OT/CIRCUS SUPERVISOR is requested and pending; patient remains on aspirin, Xarelto and high-dose statin therapy; neurology consultation is requested and pending due to no neurology coverage over the weekend Objective - Vital Signs Vital signs: Vital Signs Temp 99.6 F 12/11/19 08:00 Pulse 89 12/11/19 08:00 Resp 20 12/11/19 08:00 BP 171/56 12/11/19 08:00 Pulse Ox 95 12/11/19 08:00 Intake & Output 12/10/19 12/11/19 12/11/19 18:59 06:59 18:59 Intake Total 1160 100 Output Total 1600 600 Balance -440 -600 100 Weight 61.2 kg 82 kg Intake: IV 800 Sodium Chloride 0.9% 1, 800 000 ml @ 100 mls/hr IV . Q10H CONI Rx#:[id number] Oral 360 100 Output: Urine 1600 600 Other: Voiding Method Urinal Urinal Urinal # Voids 0 0 # Bowel Movements 0 - Exam GENERAL: The patient is alert and oriented x3, not in any acute distress. Well developed, well nourished. HEENT: Pupils are round and equally reacting to light. EOMI. No scleral icterus. No conjunctival pallor. Normocephalic, atraumatic. No pharyngeal erythema. No thyromegaly. CARDIOVASCULAR: S1 and S2 present. No murmurs, rubs, or gallops. PULMONARY: Chest is clear to auscultation, no wheezing or crackles. ABDOMEN: Soft, nontender, nondistended, normoactive bowel sounds. No palpable organomegaly. MUSCULOSKELETAL: No joint swelling or deformity. EXTREMITIES: No cyanosis, clubbing, or pedal edema. NEUROLOGICAL: Left-sided weakness; difficulty with speech; left facial droop. SKIN: No rashes. - Labs CBC & Chem 7: 12/09/19 14:13 12/11/19 05:47 Labs: Abnormal Lab Results - Last 24 Hours (Table) 12/10/19 12/10/19 12/10/19 Range/Units 06:31 11:39 16:42 Sodium (137-145) mmol/L Chloride (98-107) mmol/L Glucose (74-99) mg/dL POC Glucose (mg/dL) 165 H 191 H (75-99) mg/dL Vitamin B12 153.0 L (200.0-944.0) pg/mL 12/10/19 12/11/19 12/11/19 Range/Units 20:54 05:47 06:11 Sodium 136 L (137-145) mmol/L Chloride 108 H (98-107) mmol/L Glucose 170 H (74-99) mg/dL POC Glucose (mg/dL) 251 H 165 H (75-99) mg/dL Vitamin B12 (200.0-944.0) pg/mL Assessment and Plan Assessment: 1. Left-sided weakness; - We will order stat MRI of the head with and without contrast- 80 of subacute ischemia in posterior aspect of external capsule on the right extending into the coronary radiata on the right - CT of head and neck is unremarkable; 2-D echocardiogram is ordered and pending; we will order TSH, folic acid and B12 levels - We will have neurology see patient on Thursday when coverage is available - Continue with aspirin 325 mg daily; I will hold off on Xarelto for 24 hours to prevent hemorrhagic conversion of stroke; continue with Lipitor 80 mg by mouth daily at bedtime 2. Hyperglycemia/ diabetes mellitus; monitor Accu-Cheks every before meals and at bedtime with insulin sliding scale 3. Uncontrolled hypertension; allow permissive hypertension; we can use IV hydralazine if SBP is greater than 220 along with diastolic blood pressure was 120 4. History of DVT; patient takes Xarelto 20 mg daily; we will restart patient in next 24 hours 5. Sleep apnea; uses CPAP at home 6. BPH; continue with Flomax DVT prophylaxis; SCDs; hold off on Xarelto for another 24 hours CODE STATUS; full code
[2019-12-11 16:43] LABS: Glucose,Whole Blood 193 mg/dL (75-99)
[2019-12-11] MEDS: amLODIPine 5 MG TAB PO SCH (17:02)
[2019-12-11 20:24] LABS: Glucose,Whole Blood 181 mg/dL (75-99)
[2019-12-12] MEDS: SODIUM CHLORIDE 0.9% 1,000 ML IV SCH ×2 (05:02→17:47)
[2019-12-12] MEDS: INSULIN ASPART (NovoLOG) 100 UNIT/ML VIAL SQ SCH ×4 (06:22→22:04)
[2019-12-12 06:23] LABS: Glucose,Whole Blood 159 mg/dL (75-99)
[2019-12-12 06:34] LABS: Basophils % (A) 0 %; Eosinophils % (A) 0 %; HCT 43.9 % (39.0-53.0); HGB 14.1 gm/dL (13.0-17.5); Lymphocytes # (A) 1.2 k/uL (1.0-4.8); Lymphocytes % (A) 13 %; MCHC 32.2 g/dL (31.0-37.0); MCV 93.3 fL (80.0-100.0); Mean Platelet Volume 7.2; Monocytes # (A) 0.6 k/uL (0-1.0); Monocytes % (A) 7 %; Neutrophils # (A) 7.4 k/uL (1.3-7.7); Neutrophils % (A) 79 %; Platelet Count 202 k/uL (150-450); RBC 4.71 m/uL (4.30-5.90); WBC 9.5 k/uL (3.8-10.6)
[2019-12-12 06:41] LABS: African American GFR (CKD) >90 (>60 ml/min/1.73 sqM); Anion Gap 7 mmol/L; Blood Urea Nitrogen 9 mg/dL (9-20); Calcium 8.3 mg/dL (8.4-10.2); Carbon Dioxide 22 mmol/L (22-30); Chloride 109 mmol/L (98-107); Glucose 155 mg/dL (74-99); Non-African American GFR(CKD) 89 (>60 ml/min/1.73 sqM); Potassium 3.9 mmol/L (3.5-5.1); Sodium 138 mmol/L (137-145)
[2019-12-12] MEDS: ATORVASTATIN 80 MG TAB PO SCH (09:40)
[2019-12-12] MEDS: CYANOCOBALAMIN 500 MCG TAB PO SCH (09:40)
[2019-12-12] MEDS: ASPIRIN 325 MG TAB PO SCH (09:40)
[2019-12-12] MEDS: amLODIPine 5 MG TAB PO SCH (09:40)
--- NOTE | 2019-12-12 11:11 | FL ---
EXAMINATION TYPE: FL barium swallow w video DATE OF EXAM: 12/12/2019 COMPARISON: NONE HISTORY: Aspiration, gurgling at bedside TECHNIQUE: Fluoroscopy. FINDINGS: Fluoroscopic guidance was provided for the procedure performed in conjunction with the [facility] pathology department. Please see complete report forthcoming from the Speech Pathology departmen t. Various consistencies from thin liquid to solids were administered. Fluoroscopy time 1 minute 7 seconds. Number of images: 0. No aspiration was evident. Transient penetration with nectar thick was noted. Note was also made of s ome residuals within the piriform sinus and vallecula. There was normal propulsion of the bolus. IMPRESSION: 1. Mild transient penetration with nectar thick liquids. 2. No aspiration was evident. 3. Mild residuals within the vallecula and piriform sinuses during the exam
[2019-12-12 11:12] LABS: Glucose,Whole Blood 252 mg/dL (75-99)
[2019-12-12] MEDS: RIVAROXABAN 20 MG TAB PO SCH (12:55)
--- NOTE | 2019-12-12 13:02 | P.CNNES ---
History of Present Illness Consult date: 12/12/19 Requesting physician: Azul Elias Reason for Consult: Acute CVA History of Present Illness: Patient is a 79-year-old male admitted on 12/09/2019 at 2:08 PM for left-sided weakness. Patient states that his symptoms started on 12/06/2019, 3 days prior to arrival. Patient states that he noticed that he was losing balance to the left side, couldn't stand and would keep on falling to the left. His symptoms stayed like this on Thursday and Thursday. he felt better, states was able to walk fine. However on Thursday on the day of admission, he woke up at 9:30 AM, fell at home and was not able to get up. He called ambulance and was brought to the hospital. Patient's blood pressure on arrival was 195/82, pulse rate 67 and temperature 98.3. Patient was noted to have complete flaccid weakness of left side of the body. Patient has been on Xarelto 20 mg daily and aspirin 81 mg. No previous history of TIA or CVA. Patient's NIH stroke scale was 6 in the ER. Patient was not a candidate for TPA as he was on on anticoagulation, and symptoms have been present for more than [address] head , which showed age-related atrophy with chronic appearing periventricular white matter ischemic changes. Chest x-ray showed small posterior pleural effusion, likely on the left. This would be diminished from the comparison. CTA of head and neck showed no flow-limiting stenosis bilateral carotid bifurcations. Atheromatous plaquing is present with less than 50% narrowing greater on the right. Basal artery has some minimal fusiform prominence at the origin. The distal basilar artery may just slightly greater in the midportion, maybe within measurement error. No basilar tip arriaza aneurysm or dolichoectasia is otherwise evident. Lummi of [place] is otherwise appears within normal limits. 2-D echo showed sinus rhythm, borderline concentric LVH, EF 60-65%. Normal left atrial size. Interatrial and interventricular septum intact. MRI of brain revealed acute area of subacute ischemia in the posterior aspect of the external capsule on the right, extending into the jacinto radiate on the right. Punctate and confluent event we're white matter disease likely on the basis of small vessel disease and chronic ischemic change. Patient's hemoglobin A1c 8.5 on 11/11/2019. Total cholesterol 127, LDL 80, HDL 30 and triglycerides 85. Vitamin B12 is very low 153, folate 14.4 and TSH is normal 2.28. Liver panel normal. Patient has been on aspirin 81 mg and Xarelto 20 mg daily at home. Also on metformin. Patient has history of diabetes since 1992. He also smoked 1 pack per day for 20-25 years, quit at age 50. Denies alcohol use. Review of Systems Denies chest pressure, shortness of breath, wheezing or cough. Denies diplopia, loss of vision. Denies nausea vomiting diarrhea. No fever or chills. Past Medical History Past Medical History: Coronary Artery Disease (CAD), Cancer, CVA/TIA, Diabetes Mellitus, Deep Vein Thrombosis (DVT), Osteoarthritis (OA), Sleep Apnea/CPAP/BIPAP Additional Past Medical History / Comment(s): hx basal cell skin cancer, bone spurs in lt shoulder History of Any Multi-Drug Resistant Organisms: None Reported Past Surgical History: Coronary Bypass/CABG, Orthopedic Surgery Additional Past Surgical History / Comment(s): Rotator Cuff Surgery. left foot surgery. bilateral cataract surgery. gum surgery. hx. of removal of 3 fungal toenails cabg sep 2018 Past Anesthesia/Blood Transfusion Reactions: No Reported Reaction Past Psychological History: No Psychological Hx Reported Smoking Status: Former smoker Past Alcohol Use History: None Reported Additional Past Alcohol Use History / Comment(s): smoker 20 years 1ppd quit age 50 Past Drug Use History: None Reported - Past Family History Mother Family Medical History: No Reported History Additional Family Medical History / Comment(s): Mother of a "blood clot" Father Family Medical History: Coronary Artery Disease (CAD) Medications and Allergies Home Medications Medication Instructions Recorded Confirmed Type Aspirin 81 mg PO W/LUNCH 12/09/19 12/09/19 History Ferrous Sulfate [Feosol] 325 mg PO DAILY 12/09/19 12/09/19 History Rivaroxaban [Xarelto] 20 mg PO W/LUNCH 12/09/19 12/09/19 History metFORMIN HCL 1,000 mg PO BID-W/MEALS 12/09/19 12/09/19 History metFORMIN HCL [Glucophage] 500 mg PO W/LUNCH 12/09/19 12/09/19 History Allergies Allergy/AdvReac Type Severity Reaction Status Date / Time codeine AdvReac Nausea & Verified 12/09/19 19:18 Vomiting Physical Examination - Vital Signs Vital Signs: Vital Signs Temp Pulse Resp BP Pulse Ox 12/12/19 08:42 98.1 F 76 16 159/73 95 12/12/19 03:48 98.3 F 79 19 163/74 92 L 12/11/19 23:47 98.6 F 82 19 161/70 96 12/11/19 20:00 99 F 83 19 160/74 94 L 12/11/19 17:14 88 167/79 12/11/19 16:00 20 12/11/19 12:00 99.6 F 86 20 155/68 92 L Intake and Output 12/11/19 12/12/19 12/12/19 22:59 06:59 14:59 Output Total 700 150 240 Balance -700 -150 -240 Output: Urine 700 150 240 Other: Voiding Method Urinal Urinal Weight 80.7 kg On examination patient is an elderly male, in no acute distress. He Is alert and awake fully oriented. His speech is mildly dysarthric but no aphasia. On cranial nerve examination pupils are round and reactive to light, visual holloway are full on confrontation, except muscles are intact without nystagmus. Patient's face is weak on the left side, central type. Tongue protrudes the midline. Palatal elevation and sensation normal. On muscle str ength testing patient is completely flaccid in the left arm and left leg. Right side is completely normal. Sensory touch is equal with no neglect on double simultaneous stimulation. No ataxia for [id number] testing on the right side. Cannot check on the left. Tone is decreased on the left side. Bulk of muscles is normal. Patient's reflex examination patient has Babinski only on the left side. No definite carotid bruit or murmur, peripheral pulses present. Results - Laboratory Findings CBC and BMP: 12/12/19 06:09 12/12/19 06:09 Abnormal Lab Findings: Abnormal Labs 12/09/19 12/09/19 12/10/19 14:13 20:21 06:10 Sodium Chloride Glucose 149 H POC Glucose (mg/dL) 203 H 124 H Calcium HDL Cholesterol Vitamin B12 12/10/19 12/10/19 12/10/19 06:31 06:31 11:39 Sodium Chloride Glucose POC Glucose (mg/dL) 165 H Calcium HDL Cholesterol 30 L Vitamin B12 153.0 L 12/10/19 12/10/19 12/11/19 16:42 20:54 05:47 Sodium 136 L Chloride 108 H Glucose 170 H POC Glucose (mg/dL) 191 H 251 H Calcium HDL Cholesterol Vitamin B12 12/11/19 12/11/19 12/11/19 06:11 12:00 16:40 Sodium Chloride Glucose POC Glucose (mg/dL) 165 H 184 H 193 H Calcium HDL Cholesterol Vitamin B12 12/11/19 12/12/19 12/12/19 20:23 06:09 06:21 Sodium Chloride 109 H Glucose 155 H POC Glucose (mg/dL) 181 H 159 H Calcium 8.3 L HDL Cholesterol Vitamin B12 12/12/19 11:10 Sodium Chloride Glucose POC Glucose (mg/dL) 252 H Calcium HDL Cholesterol Vitamin B12 Assessment and Plan Assessment: * Acute ischemic stroke, involving posterior aspect of the external capsule on the right, extending into the jacinto radiate up on the right. Mechanism of stroke uncertain if related to atherothrombosis, or embolic phenomenon. Patient has been on Xarelto and aspirin 81 mg, compliant with the medication. Patient's vascular risk factors include poorly controlled diabetes. * Hypertension * Diabetes, not controlled * X tobacco use Plan: * Patient has been on Xarelto 20 mg daily, and aspirin 81 mg daily. He'll be continued on these medication. Aspirin dose has been increased. * Optimize control of diabetes to target hemoglobin A1c <7.0 * Continue high-dose statins and optimize control of hypertension. * PT and OT. * We will start Pepcid 20 mg twice a day for gastric ulcer prophylaxis. * Consider inpatient rehabilitation.
[2019-12-12] MEDS ORDERED: CYANOCOBALAMIN 1,000 MCG/ML 1 ML VIAL IM SCH (14:15)
[2019-12-12] MEDS ORDERED: CYANOCOBALAMIN 500 MCG TAB PO SCH (14:15)
[2019-12-12 16:24] LABS: Glucose,Whole Blood 197 mg/dL (75-99)
[2019-12-12] MEDS: FAMOTIDINE 20 MG TAB PO SCH (19:50)
[2019-12-12 20:49] LABS: Glucose,Whole Blood 213 mg/dL (75-99)
--- NOTE | 2019-12-13 00:05 | P.PN ---
Subjective 79-year-old male presenting for evaluation of left-sided weakness. Patient's symptoms have progressed over the course of greater than 48 hours. He did initially developed left leg weakness in his had multiple falls denying any pain complaints, no injury reported from the falls. Over the past 24 hours he developed left arm weakness. He has history of carotid blockage. He is currently on Xarelto, he is uncertain why he is taking this medication. Denies fever. Denies cough. Denies abdominal pain. Denies chest pain. Denies vomiting or diarrhea. No previous history of TIA or CVA. 12/11/2019 Patient is seen and evaluated in room at bedside; had an episode of a coughing spell while drinking water this morning; patient has been made nothing by mouth with medications crushed in applesauce; INSIDE SALES ACCOUNT MANAGER evaluation is requested and pending; patient continues to have low-grade temperature of 99.6; stat chest x-ray was done which shows small left pleural effusion; we will monitor CBC and pro- calcitonin levels; we will hold off on antibiotic therapy till testing is complete PT/OT/INSIDE SALES ACCOUNT MANAGER is requested and pending; patient remains on aspirin, Xarelto and high-dose statin therapy; neurology consultation is requested and pending due to no neurology coverage over the weekend 12/12/2019 Patient is lying in bed comfortable, no worsening weakness or numbness. He is currently on dysphagia diet level III, as she'll evaluation is showing mild transient penetration with nectar thick liquids. EKG: Normal sinus rhythm. Also discussed the case with neurology service, to continue now with higher dose of aspirin and home dose of Xarelto ( h/o DVT). Patient confirms he was adherent to his therapy with aspirin Xarelto at home. BMP and CBC were stable. Blood pressure is 159/73, continue same blood pressure medication Call Dr. Ceja service for possible inpatient rehab Discussed with the staff and bedside nurse Review of systems CONSTITUTIONAL: No fever, no malaise, no fatigue. HEENT: No recent visual problems or hearing problems. Denied any sore throat. CARDIOVASCULAR: No orthopnea, PND, no palpitations, no syncope. PULMONARY: No shortness of breath, no cough, no hemoptysis. GASTROINTESTINAL: No diarrhea, no nausea, no vomiting, no abdominal pain. Normoactive bowel sounds. HEMATOLOGICAL: Denies any bleeding or petechiae. GENITOURINARY: Denies any burning micturition, frequency, or urgency. MUSCULOSKELETAL/RHEUMATOLOGICAL: Denies any joint pain, swelling, or any muscle pain. ENDOCRINE: Denies any polyuria or polydipsia. Active Medications Generic Name Dose Route Start Last Admin Trade Name Coreyq PRN Reason Stop Dose Admin Amlodipine Besylate 5 mg 12/11/19 16:15 12/12/19 09:40 Norvasc PO 5 mg DAILY CONI Administration Aspirin 325 mg 12/10/19 12:00 12/12/19 09:40 Aspirin PO 325 mg DAILY CONI Administration Atorvastatin Calcium 80 mg 12/10/19 09:00 12/12/19 09:40 Lipitor PO 80 mg DAILY CONI Administration Cyanocobalamin 1,000 mcg 12/11/19 11:30 12/12/19 09:40 Vitamin B-12 PO 1,000 mcg DAILY CONI Administration Sodium Chloride 1,000 mls @ 100 mls/hr 12/09/19 16:30 12/12/19 05:02 Saline 0.9% IV Not Given .Q10H CONI Insulin Aspart 0 unit 12/10/19 07:30 12/12/19 12:55 Novolog SQ 4 unit ACHS CONI Administration Protocol Rivaroxaban 20 mg 12/11/19 12:30 12/12/19 12:55 Xarelto PO 20 mg W/LUNCH CONI Administration Objective - Vital Signs Vital signs: Vital Signs Temp 98.1 F 12/12/19 08:42 Pulse 76 12/12/19 08:42 Resp 16 12/12/19 08:42 BP 159/73 12/12/19 08:42 Pulse Ox 95 12/12/19 08:42 Intake & Output 12/11/19 12/12/19 12/12/19 18:59 06:59 18:59 Intake Total 900 120 Output Total 300 550 240 Balance 600 -550 -120 Weight 80.7 kg Intake: IV 800 Sodium Chloride 0.9% 1, 800 000 ml @ 100 mls/hr IV . Q10H CONI Rx#:[id number] Oral 100 120 Output: Urine 300 550 240 Other: Voiding Method Urinal Urinal # Voids 200 # Bowel Movements 0 - Exam GENERAL: The patient is alert and oriented x3, not in any acute distress. Well developed, well nourished. HEENT: Pupils are round and equally reacting to light. EOMI. No scleral icterus. No conjunctival pallor. Normocephalic, atraumatic. No pharyngeal erythema. No thyromegaly. CARDIOVASCULAR: S1 and S2 present. No murmurs, rubs, or gallops. PULMONARY: Chest is clear to auscultation, no wheezing or crackles. ABDOMEN: Soft, nontender, nondistended, normoactive bowel sounds. No palpable organomegaly. MUSCULOSKELETAL: No joint swelling or deformity. EXTREMITIES: No cyanosis, clubbing, or pedal edema. NEUROLOGICAL: Left-sided weakness; difficulty with speech; left facial droop. SKIN: No rashes. - Labs CBC & Chem 7: 12/12/19 06:09 12/12/19 06:09 Labs: Abnormal Lab Results - Last 24 Hours (Table) 12/11/19 12/11/19 12/12/19 Range/Units 16:40 20:23 06:09 Chloride (98-107) mmol/L Glucose (74-99) mg/dL POC Glucose (mg/dL) 193 H 181 H (75-99) mg/dL Calcium (8.4-10.2) mg/dL Procalcitonin 0.25 H (0.02-0.09) ng/mL 12/12/19 12/12/19 12/12/19 Range/Units 06:09 06:21 11:10 Chloride 109 H (98-107) mmol/L Glucose 155 H (74-99) mg/dL POC Glucose (mg/dL) 159 H 252 H (75-99) mg/dL Calcium 8.3 L (8.4-10.2) mg/dL Procalcitonin (0.02-0.09) ng/mL Assessment and Plan Assessment: 1. Left-sided weakness; - We will order stat MRI of the head with and without contrast- 80 of subacute ischemia in posterior aspect of external capsule on the right extending into the coronary radiata on the right - CT of head and neck is unremarkable; 2-D echocardiogram is ordered and pending - We will have neurology see patient on Thursday when coverage is available - aspirin dose was already increased to 325 mg daily; I will hold off on Xarelto for 24 hours to prevent hemorrhagic conversion of stroke; continue with Lipitor 80 mg by mouth daily at bedtime. 2. Hyperglycemia/ diabetes mellitus; monitor Accu-Cheks every before meals and at bedtime with insulin sliding scale 3. Low vitamin B12, been replaced, oral route is preferred over intramuscular as patient is on blood thinner of Xarelto, we recommend patient follow up level of vitamin B12 4. Uncontrolled hypertension; allow permissive hypertension; we can use IV hydralazine if SBP is greater than 220 along with diastolic blood pressure was 120 5. History of DVT; patient takes Xarelto 20 mg daily; we will restart patient in next 24 hours 6. Sleep apnea; uses CPAP at home 7. BPH; continue with Flomax DVT prophylaxis; SCDs; hold off on Xarelto for another 24 hours CODE STATUS; full code
[2019-12-13] MEDS: SODIUM CHLORIDE 0.9% 1,000 ML IV SCH ×2 (00:21→11:28)
[2019-12-13 06:21] LABS: Glucose,Whole Blood 169 mg/dL (75-99)
[2019-12-13] MEDS: INSULIN ASPART (NovoLOG) 100 UNIT/ML VIAL SQ SCH ×4 (06:27→21:12)
[2019-12-13 06:37] LABS: Basophils % (A) 0 %; Eosinophils # (A) 0.2 k/uL (0-0.7); Eosinophils % (A) 2 %; HCT 42.3 % (39.0-53.0); HGB 13.8 gm/dL (13.0-17.5); Lymphocytes # (A) 1.1 k/uL (1.0-4.8); Lymphocytes % (A) 15 %; MCH 30.2 pg (25.0-35.0); MCHC 32.7 g/dL (31.0-37.0); MCV 92.5 fL (80.0-100.0); Mean Platelet Volume 7.3; Monocytes # (A) 0.5 k/uL (0-1.0); Monocytes % (A) 6 %; Neutrophils # (A) 5.6 k/uL (1.3-7.7); Neutrophils % (A) 75 %; Platelet Count 208 k/uL (150-450); RBC 4.57 m/uL (4.30-5.90); RDW 13.9 % (11.5-15.5); WBC 7.4 k/uL (3.8-10.6)
[2019-12-13 06:46] LABS: African American GFR (CKD) >90 (>60 ml/min/1.73 sqM); Anion Gap 7 mmol/L; Blood Urea Nitrogen 7 mg/dL (9-20); Calcium 8.1 mg/dL (8.4-10.2); Carbon Dioxide 23 mmol/L (22-30); Chloride 109 mmol/L (98-107); Glucose 161 mg/dL (74-99); Non-African American GFR(CKD) >90 (>60 ml/min/1.73 sqM); Potassium 3.9 mmol/L (3.5-5.1); Sodium 139 mmol/L (137-145)
[2019-12-13] MEDS: ATORVASTATIN 80 MG TAB PO SCH (08:03)
[2019-12-13] MEDS: CYANOCOBALAMIN 500 MCG TAB PO SCH (08:03)
[2019-12-13] MEDS: FAMOTIDINE 20 MG TAB PO SCH ×2 (08:03→21:12)
[2019-12-13] MEDS: AMOXIC-POT CLAV 875-125MG 1 EACH TAB PO SCH ×2 (08:03→21:12)
[2019-12-13] MEDS: ASPIRIN 325 MG TAB PO SCH (08:03)
[2019-12-13] MEDS: amLODIPine 5 MG TAB PO SCH (08:03)
[2019-12-13 11:25] LABS: Glucose,Whole Blood 213 mg/dL (75-99)
[2019-12-13] MEDS: RIVAROXABAN 20 MG TAB PO SCH (11:30)
--- NOTE | 2019-12-13 13:21 | P.PN ---
Subjective Progress Note Date: 12/13/19 Patient continues to be left hemiplegic. Denies any numbness. Denies headache. Objective - Vital Signs Vital signs: Vital Signs Temp 98.1 F 12/13/19 11:26 Pulse 80 12/13/19 11:26 Resp 18 12/13/19 11:26 BP 142/74 12/13/19 11:26 Pulse Ox 95 12/13/19 11:26 Intake & Output 12/12/19 12/13/19 12/13/19 18:59 06:59 18:59 Intake Total 360 240 Output Total 1140 1050 Balance -780 -1050 240 Weight 79.5 kg Intake: Oral 360 240 Output: Urine 1140 1050 Other: Voiding Method Urinal Urinal # Voids 2 1 - Exam On examination patient is alert and awake. Speech is mildly dysarthric. Patient has left facial weakness, central type. No visual field deficit. Tongue protrudes to the left side. Muscle strength is normal in the right arm and right leg. He is flaccid in the left arm and left leg. Able to wiggle his left toe a little. Sensations are equal, with no loss of sensation on double simultaneous stimulation. - Labs CBC & Chem 7: 12/13/19 05:56 12/13/19 05:56 Labs: Abnormal Lab Results - Last 24 Hours (Table) 12/12/19 12/12/19 12/13/19 Range/Units 16:23 20:48 05:56 Chloride 109 H (98-107) mmol/L BUN 7 L (9-20) mg/dL Glucose 161 H (74-99) mg/dL POC Glucose (mg/dL) 197 H 213 H (75-99) mg/dL Calcium 8.1 L (8.4-10.2) mg/dL Procalcitonin (0.02-0.09) ng/mL 12/13/19 12/13/19 12/13/19 Range/Units 05:56 06:19 11:24 Chloride (98-107) mmol/L BUN (9-20) mg/dL Glucose (74-99) mg/dL POC Glucose (mg/dL) 169 H 213 H (75-99) mg/dL Calcium (8.4-10.2) mg/dL Procalcitonin 0.15 H (0.02-0.09) ng/mL Assessment and Plan Assessment: * Acute ischemic stroke, involving posterior aspect of the external capsule on the right, extending into the jacinto radiate up on the right. Mechanism of stroke uncertain if related to atherothrombosis, or embolic phenomenon. Patient has been on Xarelto and aspirin 81 mg, compliant with the medication. Patient's vascular risk factors include poorly controlled diabetes. * Hypertension * Diabetes, not controlled * X tobacco use Plan: * Patient has been on Xarelto 20 mg daily, and aspirin 81 mg daily. He'll be continued on these medication. Aspirin dose has been increased. * Optimize control of diabetes to target hemoglobin A1c <7.0 * Continue high-dose statins and optimize control of hypertension. * PT and OT. * Continue Pepcid 20 mg twice a day for gastric ulcer prophylaxis. * Consider inpatient rehabilitation.
--- NOTE | 2019-12-13 14:55 | P.CONS ---
History of Present Illness - Chief Complaint Gait disturbance, left hemiparesthesias - History of Present Illness I had the opportunity to see patient for inpatient rehab consultation with regard to gait disturbance. He is admitted to [facility] December 08 acute onset left-sided weakness. Seen by neurology, Dr. Pineda who concurred with diagnosis stroke. Head CT demonstrated age and periventricular white matter change. Angiogram CT demonstrates less than 50% occlusion with fusiform basilar artery. Brain MRI with punctate lesions right external capsule/jacinto radiata as well as periventricular change. Chest x-ray with small left pleural effusion. Seen by therapies. PT reports maximal total assistance for bed mobility and 2 person maximal assistance to stand transfer. Fatigues. OT reports maximal assistance for upper dressing, total assistance for lower dressing, maximal total assistance for bathing and maximal assistance for toileting. Speech therapy assess swallow and recommend mechanical soft. Previous functional history as elicited from patient: 79-year-old right-handed white male who is lives and 2 floor home alone. Describes independent with own cooking, laundry, driving, sitdown or standing shower and gait without device. Dr. Perry is regular doctor. Denies tobacco or alcohol. Review of Systems Review of systems: ENT: Denies sneezes or discharge. Eyes: Denies discharge or photophobia. Cardiac: Denies chest pain or palpitation. Pulmonary: Denies cough or shortness of breath. Gastrointestinal: Denies nausea, emesis, constipation, diarrhea. Genitourinary: Denies discharge or frequency. Musculoskeletal: Denies muscle or bone aches. Neurologic: Left Side weakness and numbness. Endocrine: Denies shakes or sweats. Oncology: Denies cancers. Dermatologic: Denies rash, itching, pruritus. ALLERGY/immunology: Denies sneezes, rashes. Past Medical History Past Medical History: Coronary Artery Disease (CAD), Cancer, CVA/TIA, Diabetes Mellitus, Deep Vein Thrombosis (DVT), Osteoarthritis (OA), Sleep Apnea/CPAP/BIPAP Additional Past Medical History / Comment(s): hx basal cell skin cancer, bone spurs in lt shoulder History of Any Multi-Drug Resistant Organisms: None Reported Past Surgical History: Coronary Bypass/CABG, Orthopedic Surgery Additional Past Surgical History / Comment(s): Rotator Cuff Surgery. left foot surgery. bilateral cataract surgery. gum surgery. hx. of removal of 3 fungal toenails cabg sep 2018 Past Anesthesia/Blood Transfusion Reactions: No Reported Reaction Past Psychological History: No Psychological Hx Reported Smoking Status: Former smoker Past Alcohol Use History: None Reported Additional Past Alcohol Use History / Comment(s): smoker 20 years 1ppd quit age 50 Past Drug Use History: None Reported - Past Family History Mother Family Medical History: No Reported History Additional Family Medical History / Comment(s): Mother of a "blood clot" Father Family Medical History: Coronary Artery Disease (CAD) Medications and Allergies Home Medications Medication Instructions Recorded Confirmed Type Aspirin 81 mg PO W/LUNCH 12/09/19 12/09/19 History Ferrous Sulfate [Feosol] 325 mg PO DAILY 12/09/19 12/09/19 History Rivaroxaban [Xarelto] 20 mg PO W/LUNCH 12/09/19 12/09/19 History metFORMIN HCL 1,000 mg PO BID-W/MEALS 12/09/19 12/09/19 History metFORMIN HCL [Glucophage] 500 mg PO W/LUNCH 12/09/19 12/09/19 History Allergies Allergy/AdvReac Type Severity Reaction Status Date / Time codeine AdvReac Nausea & Verified 12/09/19 19:18 Vomiting Physical Exam Vitals: Vital Signs Temp Pulse Resp BP Pulse Ox 12/13/19 11:26 98.1 F 80 18 142/74 95 12/13/19 08:00 98.3 F 81 18 160/71 94 L 12/13/19 04:00 69 18 143/73 96 12/13/19 00:00 98.3 F 70 18 153/68 96 12/12/19 20:00 98.3 F 75 18 149/59 98 12/12/19 16:20 97.7 F 72 16 163/76 96 Intake and Output 12/12/19 12/13/19 12/13/19 22:59 06:59 14:59 Intake Total 240 240 Output Total 1400 550 Balance -1160 -550 240 Intake: Oral 240 240 Output: Urine 1400 550 Other: Voiding Method Urinal Urinal # Voids 2 1 Weight 79.5 kg Skin: Good color, texture, turgor. General: Atrophic, intact. Head: Normocephalic, atraumatic. Eyes: Symmetric. Pupils equal round. Ears: Symmetric. Hearing within normal limits. Mouth: Clear. Neck: Supple. Carotid without bruit. Cardiac: Regular rate and rhythm. Lungs: Clear anteriorly and posteriorly. Abdomen: Soft active nontender. Extremities: Normal tone. Neurological: Mental status: Alert, cooperative, pleasant. Cranial nerves: Symmetric facial tone and trapezius. Motor: Normal strength and isolation right arm and leg. Left arm and leg poor. Sensation: Intact right side and depressed left side. DTRs: Symmetric and equal throughout. Mobility: Requires physical assistance for bed mobility. Results CBC & Chem 7: 12/13/19 05:56 12/13/19 05:56 Labs: Abnormal Lab Results - Last 24 Hours (Table) 12/12/19 12/12/19 12/13/19 Range/Units 16:23 20:48 05:56 Chloride 109 H (98-107) mmol/L BUN 7 L (9-20) mg/dL Glucose 161 H (74-99) mg/dL POC Glucose (mg/dL) 197 H 213 H (75-99) mg/dL Calcium 8.1 L (8.4-10.2) mg/dL Procalcitonin (0.02-0.09) ng/mL 12/13/19 12/13/19 12/13/19 Range/Units 05:56 06:19 11:24 Chloride (98-107) mmol/L BUN (9-20) mg/dL Glucose (74-99) mg/dL POC Glucose (mg/dL) 169 H 213 H (75-99) mg/dL Calcium (8.4-10.2) mg/dL Procalcitonin 0.15 H (0.02-0.09) ng/mL Assessment and Plan (1) Cerebrovascular accident (CVA) Current Visit: Yes Status: Acute Code(s): I63.9 - CEREBRAL INFARCTION, UNSPECIFIED SNOMED Code(s): 312038570 Plan: Impression: 1. Gait disturbance due to right MCA stroke result in left hemiplegia with history of previous stroke. 2. Coronary disease. 3. Diabetes. 4. Obstructive sleep apnea. 5. History of cancer and DVT. Comments and plan: At this time PT, OT, [employer] ongoing. Safety concerns noted. Unsure of support system for return to home.
[2019-12-13 16:03] LABS: Glucose,Whole Blood 196 mg/dL (75-99)
--- NOTE | 2019-12-13 16:27 | PN ---
PROGRESS NOTE DATE OF SERVICE: 12/13/2019 This is a 79-year-old gentleman admitted with weakness of the left side of the body, had subacute ischemia in the posterior aspect of the external capsule on the right, extending to jacinto radiata on the right. Punctate confluent white matter, periventricular white matter changes likely on the basis of small vessel disease. Patient will be closely monitored at this time. Inpatient rehab, Dr. Ceja has assessed the patient today. The patient is still complaining of weakness, as well as left arm is noted. PT, OT is also being continued. PAST MEDICAL HISTORY: Reviewed. REVIEW OF SYSTEMS: CARDIOVASCULAR SYSTEM: No angina. RESPIRATION: No cough, hemoptysis. GI: As mentioned earlier. : No dysuria. NERVOUS SYSTEM: As mentioned earlier. CURRENT MEDICATIONS: Reviewed and include: 1. Norvasc 5 mg p.o. daily. 2. Augmentin b.i.d. 3. Aspirin 325 mg daily. 4. Lipitor 80 mg daily. 5. Vitamin B12 one thousand mg b.i.d. 6. Pepcid 20 mg p.o. b.i.d. 7. NovoLog scale a.c. and at bedtime. 8. Xarelto 20 mg with lunch. 9. Restoril. PHYSICAL EXAM: Patient is alert, oriented. Pulse 80, blood pressure 142/75, respiration 18, temperature 98.1, pulse ox 94% on room air. HEET: Conjunctivae normal. NECK: No JVD noted. CARDIOVASCULAR EXAM: S1, S2, muffled. RESPIRATORY: Normal respiration,especially at the bases, a few scattered rhonchi and no crackles. ABDOMEN: Soft, nontender. LEGS: No edema. NERVOUS SYSTEM; Significant weakness of the left side of the body present. Joints no ulcer with. No active deformity. SKIN; No ulcer, rash, bleeding. LABS: At this time shows a CBC with no sodium 130, potassium 3.9, glucose 213. The procalcitonin is 0.15. ASSESSMENT: 1. Acute left-sided weakness and cerebrovascular accident caused by right hemispheric cerebrovascular accident. 2. Subacute ischemia in the posterior aspect external capsule of the right foot extending into the jacinto radiata on the right. 3. Punctate confluent periventricular ischemic changes indicating small-vessel ischemia. 4. Right atheromatous plaque in the carotid artery with less than 50% narrowing. 5. History of coronary artery disease, coronary artery bypass grafting. 6. Cerebrovascular accident/transient ischemic attack. 7. Diabetes mellitus type 2. 8. Deep venous thrombosis. 9. Degenerative joint disease. 10.Sleep apnea. 11.History of basal cell cancer. 12.Gait dysfunction. 13.History of degenerative joint disease. 14.Rotator cuff surgery. 15.Remote history of nicotine dependence. 16.FULL CODE. RECOMMENDATION: This is a 73-year-old gentleman who presented with multiple complex medical issues, will monitor the patient closely. Continue with the current management and continue with antiplatelet agents continue with Xarelto has been held apparently for a because of concerns of hemorrhagic conversion of stroke. 1. Continue with consultation with Cardiology and Neurology. Guarded prognosis because of multiple complex medical issues. PT, OT evaluation. Continue with continued DVT prophylaxis thank. OTILIO / LOREN: [id number] /
[2019-12-13] MEDS: metFORMIN 500 MG TAB PO SCH (16:53)
[2019-12-13 20:35] LABS: Glucose,Whole Blood 209 mg/dL (75-99)
[2019-12-14] MEDS: SODIUM CHLORIDE 0.9% 1,000 ML IV SCH (05:49)
[2019-12-14 06:31] LABS: Glucose,Whole Blood 197 mg/dL (75-99)
[2019-12-14] MEDS: metFORMIN 500 MG TAB PO SCH (06:31)
[2019-12-14] MEDS: INSULIN ASPART (NovoLOG) 100 UNIT/ML VIAL SQ SCH ×2 (06:35→12:11)
[2019-12-14] MEDS: ATORVASTATIN 80 MG TAB PO SCH (09:46)
[2019-12-14] MEDS: amLODIPine 5 MG TAB PO SCH (09:46)
[2019-12-14] MEDS: CYANOCOBALAMIN 500 MCG TAB PO SCH (09:46)
[2019-12-14] MEDS: ASPIRIN 325 MG TAB PO SCH (09:46)
[2019-12-14] MEDS: AMOXIC-POT CLAV 875-125MG 1 EACH TAB PO SCH (09:46)
[2019-12-14] MEDS: FAMOTIDINE 20 MG TAB PO SCH (09:46)
[2019-12-14 11:30] VITALS: TEMP 97.7
[2019-12-14 11:55] LABS: Glucose,Whole Blood 156 mg/dL (75-99)
[2019-12-14] MEDS: RIVAROXABAN 20 MG TAB PO SCH (12:11)
--- NOTE | 2019-12-14 12:14 | P.DS ---
Providers Date of admission: 12/09/19 16:18 Expected date of discharge: 12/14/19 Attending physician: Azul Elias Consults: 12/12/19 10:00 Consult Physician Routine Consulting Provider: Jamie Simmons Consult Reason/Comments: Acute CVA Do you want consulting provider notified?: Yes 12/13/19 00:02 Consult Physician Routine Consulting Provider: Hesham Ceja Consult Reason/Comments: stroke Do you want consulting provider notified?: Yes [facility] Final diagnosis Acute left-sided weakness and CVA caused by right hemispheric CVA Subacute ischemia in the posterior aspect external capsule of the right extending into the jacinto radiata on the right Punctate confluent periventricular ischemic changes indicating small vessel ischemia Right atheromatous plaque in the carotid artery with less than 50% narrowing History of coronary artery disease, coronary artery bypass grafting CVA/TIA Diabetes mellitus type 2 Deep vein thrombosis Degenerative joint disease Sleep apnea History of basal cell cancer Gait dysfunction History of degenerative joint disease Rotator cuff surgery Remote history of nicotine dependence Full code Discharge disposition Patient is being discharged in a stable condition with guarded prognosis to [facility] inpatient rehab facility. Patient will continue on a short course of oral antibiotics in the form of Augmentin to complete the course for the next 2 days and then may discontinue. Patient will also continue on Xarelto, aspirin, and statin upon discharge. Total time taken greater than 35 minutes. History of present illness This is a 79-year-old male who was recently admitted with weakness of the left side of the body had subacute ischemia in the posterior aspect of the external capsule on the right extending to the jacinto radiata on the right and was being closely monitored. Patient was also found to have punctate confluent white matter, periventricular white matter changes likely on the basis of small vessel disease. Neurology following the patient. Patient was seen and evaluated by Dr. Ceja and will be going to inpatient rehab at [facility]. Patient also underwent echo during hospitalization showing overall left ventricular systolic function is normal with an EF between 60 and 65% with trace to mild mitral and tricuspid regurgitation present. Patient will need to continue working with physical therapy along with speech therapy at the facility. Patient will continue on Xarelto along with high-dose aspirin and high-dose statin in the outpatient setting. Patient will need to follow-up with neurology in the outpatient setting as well. Currently no reports of chest pain or shortness of breath. Patient is afebrile. No reports of nausea or vomiting and patient is tolerating dysphagia 1 pured diet with nectar thickened liquids. Patient continues to have left-sided weakness along with upper extremity left arm weakness as well. On exam vital signs are stable. Temp is 97.7F, pulse is 73, respirations are 16, blood pressure is 146/67, oxygen saturation is 94% on room air. Cardio S1, S2 are muffled. Respiratory system shows diminished breath sounds with a few scattered rhonchi noted. No wheezing or crackles noted on exam. Abdomen is soft and nontender. Nervous system shows significant weakness of the left side and diffuse weakness. Please refer to medication reconciliation sheet for a list of medications. Patient Condition at Discharge: Stable Plan - Discharge Summary New Discharge Prescriptions: New Aspirin 325 mg PO DAILY tab Amoxic-Pot Clav 875-125Mg [Augmentin 875-125] 1 each PO Q12HR 2 Days #4 tab Atorvastatin [Lipitor] 80 mg PO DAILY tab amLODIPine [Norvasc] 5 mg PO DAILY tab INSULIN ASPART (NovoLOG) [NovoLOG (formulary)] 0 unit SQ ACHS vial Pantoprazole Sodium [Protonix] 40 mg PO BID #60 tablet. Cyanocobalamin [Vitamin B-12] 1,000 mcg PO DAILY tab Continue Rivaroxaban [Xarelto] 20 mg PO W/LUNCH Ferrous Sulfate [Iron (65 MG Elemental)] 325 mg PO DAILY metFORMIN HCL [Glucophage] 500 mg PO W/LUNCH metFORMIN HCL 1,000 mg PO BID-W/MEALS Discontinued Aspirin 81 mg PO W/LUNCH Discharge Medication List Ferrous Sulfate [Iron (65 MG Elemental)] 325 mg PO DAILY 12/09/19 [History] Rivaroxaban [Xarelto] 20 mg PO W/LUNCH 12/09/19 [History] metFORMIN HCL 1,000 mg PO BID-W/MEALS 12/09/19 [History] metFORMIN HCL [Glucophage] 500 mg PO W/LUNCH 12/09/19 [History] Amoxic-Pot Clav 875-125Mg [Augmentin 875-125] 1 each PO Q12HR 2 Days #4 tab 12/14/19 [Rx] Aspirin 325 mg PO DAILY tab 12/14/19 [Rx] Atorvastatin [Lipitor] 80 mg PO DAILY tab 12/14/19 [Rx] Cyanocobalamin [Vitamin B-12] 1,000 mcg PO DAILY tab 12/14/19 [Rx] INSULIN ASPART (NovoLOG) [NovoLOG (formulary)] 0 unit SQ ACHS vial 12/14/19 [Rx] Pantoprazole Sodium [Protonix] 40 mg PO BID #60 tablet.dr 12/14/19 [Rx] amLODIPine [Norvasc] 5 mg PO DAILY tab 12/14/19 [Rx] Follow up Appointment(s)/Referral(s): Herman Molina MD [Primary Care Provider] - 1-2 days Activity/Diet/Wound Care/Special Instructions: Patient is going to [facility] inpatient rehab Activity as tolerated Patient is to continue with dysphagia level I pured diet and may have free water/ice chips between meals and to continue maintaining aspiration precautions with nectar thickened liquids patient also to continue with ensure contact 3 times daily with meals Continue with physical therapy Follow up with neurology in the outpatient setting Follow up with primary care provider upon discharge Continue with antibiotics for an additional 2 days to complete the course Discharge Disposition: OTHER INSTITUTION NOT DEFINED
[2019-12-14] MEDS ORDERED: metFORMIN 500 MG TAB PO SCH (12:30)
[2019-12-14 13:12] VITALS: BP 117/68; PULSE 77; RESP 14
== END 2019-12-14 14:23 | DRG 65 ==
LOC: EC 14:05 → 3SCARD 16:18
PROVIDERS: ADMIT Internal Medicine; ATTEND Internal Medicine
DX: I63.231 Cerebral infarction due to unspecified occlusion or stenosis of right carotid arteries (principal); G81.94 Hemiplegia, unspecified affecting left nondominant side; J90 Pleural effusion, not elsewhere classified; R29.706 NIHSS score 6; E11.65 Type 2 diabetes mellitus with hyperglycemia; G47.33 Obstructive sleep apnea (adult) (pediatric); I10 Essential (primary) hypertension; I25.10 Atherosclerotic heart disease of native coronary artery without angina pectoris; M19.90 Unspecified osteoarthritis, unspecified site; N40.0 Benign prostatic hyperplasia without lower urinary tract symptoms; W19.XXXA Unspecified fall, initial encounter; Y92.009 Unspecified place in unspecified non-institutional (private) residence as the place of occurrence of the external cause; Z79.01 Long term (current) use of anticoagulants; Z79.4 Long term (current) use of insulin; Z79.82 Long term (current) use of aspirin; Z82.49 Family history of ischemic heart disease and other diseases of the circulatory system; Z85.828 Personal history of other malignant neoplasm of skin; Z86.718 Personal history of other venous thrombosis and embolism; Z87.891 Personal history of nicotine dependence; Z95.1 Presence of aortocoronary bypass graft
CPT/HCPCS: 36415; 70450; 70496; 70498; 70553; 71045; 71046; 74230; 80048; 80053; 80061; 82607; 82746; 84145; 84443; 84484; 85025; 85610; 85730; 93005; 93306; 99291

== ENCOUNTER → 2023-04-09 | Outpatient (CLI) | payer MEDICARE, BC ==
--- NOTE | 2023-04-09 09:04 | US ---
EXAMINATION TYPE: US kidneys/renal and bladder DATE OF EXAM: 04/09/2023 COMPARISON: NONE CLINICAL INDICATION: Male, 82 years old with history of R31.0 GROSS HEMATURIA; stroke, needed circumc ision and had blood in urine afterwards, no longer present EXAM MEASUREMENTS: Right Kidney: 10.3x4.3x6.2 cm Left Kidney: 10.5x6.4x5.1 cm Right Kidney: Mild hydronephrosis. No obvious masses. No calculi visualized. Left Kidney: No hydronephrosis. No obvious masses. No calculi. Bladder: 1.5cm shadowing echogenic area showing twinkle artifact Bilateral Jets seen: lt jet only seen Rt proximal and distal ureter dilated, echogenic foci noted likely obstructing rt jet, posterior blad luis miguel wall appears thickened IMPRESSION: 1. Right hydronephrosis present. 2. Bladder stone layering dependently 3. No evidence of left hydronephrosis.
== END | disposition home or self-care (01) ==
LOC: RADUSWWP 08:14
PROVIDERS: ATTEND Urology
DX: N13.30 Unspecified hydronephrosis (principal); N21.0 Calculus in bladder; R31.0 Gross hematuria; Z86.73 Personal history of transient ischemic attack (TIA), and cerebral infarction without residual deficits
CPT/HCPCS: 76770

== ENCOUNTER → 2023-07-14 | Outpatient (CLI) | payer MEDICARE, BC ==
[2023-07-14 10:46] LABS: African American GFR (CKD) 81 (>60 ml/min/1.73 sqM); Blood Urea Nitrogen 19 mg/dL (9-20); Non-African American GFR(CKD) 70 (>60 ml/min/1.73 sqM)
--- NOTE | 2023-07-14 13:39 | CT ---
EXAMINATION TYPE: CT ChestAbdPelvis w con DATE OF EXAM: 07/14/2023 COMPARISON: 09/14/2022 HISTORY: 82-year-old male C67.9, unspecified Bladder cancer TECHNIQUE: Contiguous axial scanning of the chest, abdomen, and pelvis performed with IV Contrast, pa tient injected with 100 mL of Isovue 300. Delayed images through the kidneys were obtained. Coronal/s agittal reconstructions performed. CT DLP: 859.40 mGycm Automated exposure control for dose reduction was used. FINDINGS: CHEST: Median sternotomy wires are present with post-CABG changes. Mild atherosclerotic arch calcifications within the joint vessel branching anatomy. Numerous scattered nonenlarged and borderline sized mediastinal and hilar lymph nodes are present elyssa suring up to 9 mm paratracheal, 1 cm right hilar, and 1.2 cm left hilar. These may be reactive/post i nflammatory. They can be reassessed at short interval follow-up. Suggestion of some layering hyperdense debris in the mid and lower trachea and kimmy. Moderate upper lung predominant centrilobular emphysema. Biapical pleural-parenchymal scarring. Some groundglass and reticular change at the lung bases may reflect fine interstitial fibrosis. No consoli dation or pleural effusion. ABDOMEN: No focal liver lesion or biliary ductal dilatation. Portal venous system is patent. Layering gravel/tiny calculi in the gallbladder. No abnormal gallbladder distention. Adrenal glands, spleen, pancreas within normal limits. There is a punctate 2 mm nonobstructive left renal calculus. There is delayed excretion of contrast from the right kidney with moderate right-sided hydronephrosis and right hydroureter with irregular mural thickening along the right posterior bladder base. There is variable thickening up to 1 cm thick and extending from the posterior midline and around to the ri ght lateral aspect approximately 9 cm wide, refer to axial image 117. Some intraluminal bladder air i s noted. Prostate gland is estimated at 4.7 cm wide. There is poor delineation between the prostate gland and base of the bladder. No dilated small bowel, free fluid, or free air. No mesenteric or retroperitoneal lymphadenopathy. Mi d mesenteric calcification measuring 4.6 x 1.9 cm remains unchanged back to 2013 suggesting a benign etiology. Moderate atherosclerotic calcifications infrarenal abdominal aorta and common iliac arteries. Normal appendix. Oral contrast progressed to the distal third transverse colon. There is mild overall stool burden. Redundant sigmoid colon. No pericolonic inflammatory change. PELVIS: Either insisted hydrocele along the right inguinal canal or intracanalicular testicle. Correlate with physical exam findings. BONES: Moderate degenerative change at the hips and at the SI joints. There is generalized osteopenia presen t. Disc osteophyte complex at L4-L5 with degenerative bony ankylosis contributes to similar moderate focal spinal canal stenosis. There is extensive DISH throughout the spine. Asymmetrically lucency at the left humeral head. Further clinical correlation for any localizing symp toms and possibility of osseous metastatic disease. IMPRESSION: 1. MODERATE RIGHT-SIDED HYDRONEPHROSIS AND RIGHT-SIDED HYDROURETER SECONDARY TO ABNORMAL MURAL THICKE STACY ALONG THE RIGHT POSTERIOR BASE OF THE BLADDER. THIS INVOLVES A 9 CM WIDE WALL OF THE BLADDER WIT H VARIABLE THICKENING UP TO 1 CM. THERE IS POOR DELINEATION BETWEEN THE BASE OF THE BLADDER AND THE P ROSTATE GLAND. FURTHER WORKUP IS RECOMMENDED TO ASSESS FOR PROSTATE CANCER INVADING INTO THE BLADDER VERSUS UROTHELIAL CARCINOMA. 2. INTRALUMINAL BLADDER AIR. QUERY ANY RECENT INSTRUMENTATION. 3. THREE-MONTH FOLLOW-UP CT CHEST TO REASSESS BORDERLINE AND MILDLY ENLARGED MEDIASTINAL AND HILAR LY MPH NODES WHICH ARE SUSPECTED TO BE REACTIVE/POST INFLAMMATORY RATHER THAN METASTATIC. 4. ASYMMETRIC LUCENCY INVOLVING THE LEFT HUMERAL HEAD. CORRELATE WITH RADIOGRAPHS AND FOR ANY LOCALIZ ING SYMPTOMS HERE TO EXCLUDE THE POSSIBILITY OF OSSEOUS METASTATIC DISEASE. MRI IF CLINICALLY INDICAT ED. 5. COPD WITH MODERATE EMPHYSEMA. CHOLELITHIASIS. PUNCTATE 2 MM LEFT RENAL STONE. A CHRONIC CALCIFIED MID MESENTERIC MASS MEASURING 4.6 X 1.9 CM; UNCHANGED FROM 2013 COMPATIBLE WITH A BENIGN ETIOLOGY, PO SSIBLE CHRONIC SCLEROSING MESENTERITIS. 6. EITHER INTERVAL DEVELOPMENT OF AN ENCYSTED HYDROCELE ALONG THE RIGHT INGUINAL CANAL VERSUS INTRAC ANICULAR TESTICLE.
== END | disposition home or self-care (01) ==
LOC: RADCTMAIN 09:38
PROVIDERS: ATTEND Urology
DX: C67.9 Malignant neoplasm of bladder, unspecified (principal); N32.89 Other specified disorders of bladder; R59.0 Localized enlarged lymph nodes; J43.9 Emphysema, unspecified; K80.20 Calculus of gallbladder without cholecystitis without obstruction; N13.2 Hydronephrosis with renal and ureteral calculous obstruction; N13.4 Hydroureter; N43.3 Hydrocele, unspecified
CPT/HCPCS: 82565; 84520; 71260; 74177; Q9967

== ENCOUNTER → 2023-07-16 | Outpatient (CLI) | payer MEDICARE, BC ==
--- NOTE | 2023-07-16 21:41 | NM ---
EXAMINATION TYPE: NM bone scan whole body DATE OF EXAM: 07/16/2023 COMPARISON: NONE HISTORY: Malignant neoplasm of bladder Delayed whole-body scanning was performed following the injection of 23.0 mCi Tc 99m MDP. Images wer e acquired 3 hours post injection. FINDINGS: There is focal increased uptake in the region of T12 greater on the right side. Some mild adjacent up take may be present at the spinous process. This appears slightly above the suspected T12 uptake. There is some increased uptake in the region of the right acromioclavicular junction, left sternal cl avicular junction. This is likely related to degenerative change. Some uptake below the level of the pelvis is most likely contamination. Minimal degenerative change may be at the bilateral knees. COMPARISON: Studies compared with 07/14/2023 CT a chest abdomen pelvis. No definitive corresponding ab normality in the region T12 is identified. If there is acute change in pain, consider repeat CT thora columbar junction region. Alternatively, MRI could be performed. IMPRESSION: 1. There is some abnormal uptake within the region of the T12 vertebral body. Some additional adjacen t uptake may be at the T11 or T12 junction, possibly posteriorly. Consider thoracolumbar CT or MRI fo r additional evaluation. Trauma and metastasis are within the differential.
== END | disposition home or self-care (01) ==
LOC: RADNMMAIN 09:33
PROVIDERS: ATTEND Urology
DX: C67.9 Malignant neoplasm of bladder, unspecified (principal)
CPT/HCPCS: 78306; A9503

== ENCOUNTER → 2023-07-31 | Outpatient (CLI) | payer MEDICARE, BC ==
--- NOTE | 2023-07-31 09:43 | MR ---
EXAMINATION TYPE: MR thoracic spine wo/w con DATE OF EXAM: 07/31/2023 8:52 AM CLINICAL INDICATION:Male, 82 years old with history of C67.4; PHH, Cancer found, posterior wall of bl adder COMPARISON: CT 07/14/2023. TECHNIQUE: Multi planar, multi sequence imaging was performed utilizing: T1-weighted, short-tau inver makenzie recovery and T2-weighted of the thoracic spine. IV Contrast: 6 cc Gadobutrol (none if empty) FINDINGS: Alignment: Alignment is within normal limits. Vertebral bodies have preserved heights. Spinal cord: Spinal cord is within normal limits for signal. No abnormal postcontrast enhancement. Discs: Intervertebral disc signal is maintained. No evidence of significant spinal canal or neural fo raminal stenosis. There is no evidence of extradural defects or central spinal canal narrowing at any thoracic vertebral body level . No abnormal postcontrast enhancement. Osseous structures: There is bony edema within the L1 vertebral body with curvilinear low T1 signal/l ow T2 signal. No evidence for height loss and retropulsion. Multilevel osteophyte formation and facet joint arthropathy. Scattered disc space narrowing. Low T1 high T2 signal within the T8 vertebral bod y which does not enhance suggestive of fluid. No abnormal bony inversion recovery signal within this vertebral body. IMPRESSION: 1. Subacute fracture of the L1 vertebral body with 25% height loss and retropulsion. 2. Mild degeneration changes throughout the spine with no evidence of significant spinal canal or ne ural foraminal stenosis. 3. No abnormal postcontrast enhancement within the cervical spine or spinal cord to suggest metastat ic disease.
== END | disposition home or self-care (01) ==
LOC: RADMRIMAIN 07:15
PROVIDERS: ATTEND Radiology Radiation Oncology
DX: S32.019A Unspecified fracture of first lumbar vertebra, initial encounter for closed fracture (principal); C67.4 Malignant neoplasm of posterior wall of bladder; M47.816 Spondylosis without myelopathy or radiculopathy, lumbar region
CPT/HCPCS: 72157; A9585

== ENCOUNTER → 2024-01-15 | Outpatient (CLI) | payer MEDICARE, BC ==
--- NOTE | 2024-01-15 11:45 | CT ---
EXAMINATION TYPE: CT ChestAbdPelvis wo con CT DLP: 1271 mGycm, Automated exposure control for dose reduction was used. 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 Two-dimensional coronal and sagittal reconstructions were obtained. Contrast used: mL of , Oral contrast used: without Oral Contrast Findings: CHEST: LUNGS/ PLEURA: Mild centrilobular emphysema changes seen throughout the lungs. No focal consolidation , pneumothorax or pleural effusion. Left upper lung 4 mm pulmonary nodule. AIRWAY: Patent and unremarkable. HEART: Size within normal limits. MEDIASTINUM: No gross evidence of adenopathy. VASCULATURE: No aortic aneurysm. MUSCULOSKELETAL: Moderate disc degeneration changes are present throughout the thoracolumbar spine. S table appearance of the left humeral head. SOFT TISSUES/LYMPH NODES: Unremarkable. LOWER NECK: No significant findings. ABDOMEN: ABDOMEN LIVER: Unremarkable GALLBLADDER AND BILE DUCTS: Layering gallstones in the gallbladder lumen. PANCREAS: Unremarkable. SPLEEN: Unremarkable. ADRENAL GLANDS: Unremarkable. KIDNEYS AND URETERS: Atrophic right kidney. 7 mm left renal calculus. No obstructive uropathy. PELVIS BLADDER: No evidence for bladder wall mass on this limited exam without contrast. Mild smooth circumf erential wall thickening of the bladder not significantly changed from prior measuring up to 7 mm. REPRODUCTIVE: Right inguinal soft tissue possibly relating to patient's right testis. The left testis in the scrotum. ABDOMEN & PELVIS STOMACH AND BOWEL: No evidence of bowel obstruction. PERITONEUM: No evidence of pneumoperitoneum or free fluid. VASCULATURE: No evidence of aortic aneurysm. MUSCULOSKELETAL: No acute osseous abnormalities. Moderate disc degeneration changes are present throu ghout the thoracolumbar spine. Posterior osteophyte at the level of L4-L5 with at least moderate spin al canal stenosis is unchanged from prior. LYMPH NODES: No gross evidence for lymphadenopathy. SOFT TISSUE/ABDOMINAL WALL: Unremarkable IMPRESSION: 1. No evidence for bladder wall mass on this limited exam without contrast. No evidence for lymphade nopathy. Smooth thickening of the bladder wall circumferentially 2. Left upper lung 4 mm pulmonary nodule, stable from 07/14/2023. Continued yearly surveillance recom mended. 3. Cholelithiasis. 4. Moderate emphysema changes.
== END | disposition home or self-care (01) ==
LOC: RADCTMAIN 10:33
PROVIDERS: ATTEND Radiology Radiation Oncology
DX: J43.2 Centrilobular emphysema (principal); N32.89 Other specified disorders of bladder; K80.20 Calculus of gallbladder without cholecystitis without obstruction; C67.4 Malignant neoplasm of posterior wall of bladder
CPT/HCPCS: 71250; 74176

== ENCOUNTER 2024-02-21 00:41 | Emergency (ER) | payer MEDICARE, BC ==
[2024-02-21 02:20] LABS: Basophils % (A) 0 %; Eosinophils # (A) 0.4 k/uL (0-0.7); Eosinophils % (A) 4 %; HCT 43.1 % (39.0-53.0); HGB 13.4 gm/dL (13.0-17.5); Lymphocytes # (A) 0.5 k/uL (1.0-4.8); Lymphocytes % (A) 4 %; MCH 30.2 pg (25.0-35.0); MCHC 31.1 g/dL (31.0-37.0); Mean Platelet Volume 7.7; Monocytes # (A) 0.5 k/uL (0-1.0); Monocytes % (A) 5 %; Neutrophils # (A) 9.9 k/uL (1.3-7.7); Neutrophils % (A) 87 %; Platelet Count 171 k/uL (150-450); RBC 4.45 m/uL (4.30-5.90); RDW 13.7 % (11.5-15.5); WBC 11.5 k/uL (3.8-10.6)
[2024-02-21] MEDS: ASPIRIN 81 MG PO STA (02:20)
[2024-02-21] MEDS: NITROGLYCERIN OINT 1 INCH/GM PACKET TOPICAL STA (02:22)
--- NOTE | 2024-02-21 02:26 | ED ---
Weakness HPI - General Chief complaint: Weakness Stated complaint: Fever, Dizziness, Confusion Time Seen by Provider: 02/21/24 02:07 Source: patient, family Mode of arrival: wheelchair Limitations: no limitations - History of Present Illness MD Complaint: generalized weakness Onset/Timin -: days(s) Location: generalized Severity scale (1-10): 0 Consistency: constant Improves with: none Worsens with: none Context: new medication - Related Data Home Medications Medication Instructions Recorded Confirmed Ferrous Sulfate [Iron (65 MG 325 mg PO DAILY 12/09/19 12/09/19 Elemental)] Rivaroxaban [Xarelto] 20 mg PO W/LUNCH 12/09/19 12/09/19 metFORMIN HCL [Glucophage] 1,000 mg PO BID-W/MEALS 12/09/19 12/09/19 metFORMIN HCL [Glucophage] 500 mg PO W/LUNCH 12/09/19 12/09/19 Previous Rx's Medication Instructions Recorded Amoxic-Pot Clav 875-125Mg 1 each PO Q12HR 2 Days #4 tab 12/14/19 [Augmentin 875-125] Aspirin 325 mg PO DAILY tab 12/14/19 Atorvastatin [Lipitor] 80 mg PO DAILY tab 12/14/19 Cyanocobalamin [Vitamin B-12] 1,000 mcg PO DAILY tab 12/14/19 INSULIN ASPART (NovoLOG) [NovoLOG 0 unit SQ ACHS vial 12/14/19 (formulary)] Pantoprazole Sodium [Protonix] 40 mg PO BID #60 tablet. 12/14/19 amLODIPine [Norvasc] 5 mg PO DAILY tab 12/14/19 Allergies Allergy/AdvReac Type Severity Reaction Status Date / Time codeine AdvReac Nausea & Verified 02/21/24 00:56 Vomiting Review of Systems ROS Statement: Those systems with pertinent positive or pertinent negative responses have been documented in the HPI. ROS Other: All systems not noted in ROS Statement are negative. Constitutional: Reports: weakness. Denies: fever, chills Eyes: Denies: vision change Respiratory: Denies: cough, dyspnea Cardiovascular: Denies: chest pain, palpitations, edema Gastrointestinal: Denies: abdominal pain, nausea, vomiting, diarrhea, constipation Genitourinary: Denies: dysuria, hematuria Musculoskeletal: Denies: back pain Skin: Denies: rash Neurological: Reports: vertigo. Denies: headache, weakness Past Medical History Past Medical History: Coronary Artery Disease (CAD), Cancer, CVA/TIA, Diabetes Mellitus, Deep Vein Thrombosis (DVT), Osteoarthritis (OA), Sleep Apnea/CPAP/BIPAP Additional Past Medical History / Comment(s): hx basal cell skin cancer, bone spurs in lt shoulder History of Any Multi-Drug Resistant Organisms: None Reported Past Surgical History: Coronary Bypass/CABG, Orthopedic Surgery Additional Past Surgical History / Comment(s): Rotator Cuff Surgery. left foot surgery. bilateral cataract surgery. gum surgery. hx. of removal of 3 fungal toenails cabg sep 2018 Past Anesthesia/Blood Transfusion Reactions: No Reported Reaction Past Psychological History: No Psychological Hx Reported Smoking Status: Never smoker Past Alcohol Use History: None Reported Past Drug Use History: None Reported - Past Family History Mother Family Medical History: No Reported History Additional Family Medical History / Comment(s): Mother of a "blood clot" Father Family Medical History: Coronary Artery Disease (CAD) General Exam Limitations: no limitations General appearance: alert, in no apparent distress Head exam: Present: atraumatic, normocephalic Eye exam: Present: normal appearance. Absent: scleral icterus, conjunctival injection ENT exam: Present: mucous membranes dry Neck exam: Present: normal inspection. Absent: tenderness, meningismus, full ROM Respiratory exam: Present: normal lung sounds bilaterally. Absent: respiratory distress, wheezes, rales, rhonchi, stridor, accessory muscle use Cardiovascular Exam: Present: regular rate, normal rhythm, normal heart sounds. Absent: systolic murmur, diastolic murmur, rubs, gallop GI/Abdominal exam: Present: soft. Absent: distended, tenderness, guarding, rebound, rigid, mass Extremities exam: Present: normal inspection, normal capillary refill. Absent: pedal edema, calf tenderness Back exam: Present: normal inspection. Absent: CVA tenderness (R), CVA tenderness (L) Neurological exam: Present: alert Skin exam: Present: warm, dry, intact, normal color. Absent: rash Course Vital Signs 02/21/24 02/21/24 02/21/24 00:56 02:33 04:05 Temperature 98.0 F Pulse Rate 85 85 86 Respiratory 16 24 18 Rate Blood Pressure 174/74 188/78 171/77 O2 Sat by Pulse 95 97 95 Oximetry 02/21/24 02/21/24 02/21/24 05:51 06:00 07:00 Temperature Pulse Rate 73 70 70 Respiratory 16 18 20 Rate Blood Pressure 163/67 163/67 165/69 O2 Sat by Pulse 97 97 97 Oximetry 02/21/24 02/21/24 08:07 08:47 Temperature 98.6 F 98.6 F Pulse Rate 72 72 Respiratory 17 17 Rate Blood Pressure 177/77 177/77 O2 Sat by Pulse 97 98 Oximetry EKG Findings - EKG Results: EKG: interpreted by ERMD, sinus rhythm (Rate 91 bpm), normal axis, normal ST/T - Blocks, [place], Hypertrophy, ST Abn: Chamber hypertrophy or enlargement: left ventricular hypertrophy or enlargement (LVE) Medical Decision Making - Medical Decision Making Was pt. sent in by a medical professional or institution (, PA, ADULT CAREGIVER, urgent care, hospital, or [place] health care facility...) When possible be specific @ -[No] Did you speak to anyone other than the patient for history (EMS, parent, family, police, friend...)? What history was obtained from this source @ -[No] Did you review nursing and triage notes (agree or disagree)? Why? @ -[I reviewed and agree with nursing and triage notes] Were old charts reviewed (outside hosp., previous admission, EMS record, old EKG, old radiological studies, urgent care reports/EKG's, [place] health care facility records)? Report findings @ -[No old charts were reviewed] Differential Diagnosis (chest pain, altered mental status, abdominal pain women, abdominal pain men, vaginal bleeding, weakness, fever, dyspnea, syncope, headache, dizziness, GI bleed, back pain, seizure, CVA, palpatations, mental health, musculoskeletal)? @ -[Differential Weakness: Hypoglycemia, shock, sepsis, hyponatremia, anemia, infection, GA, ETOH, adverse medicine reaction, overdose, stroke, this is not meant to be an all-inclusive list. EKG interpreted by me (3pts min.). @ -[As above] X-rays interpreted by me (1pt min.). @ -[None done] CT interpreted by me (1pt min.). @ -[None done] U/S interpreted by me (1pt. min.). @ -[None done] What testing was considered but not performed or refused? (CT, X-rays, U/S, labs)? Why? @ -[None] What meds were considered but not given or refused? Why? @ -[None] Did you discuss the management of the patient with other professionals (professionals i.e. , PA, ADULT CAREGIVER, lab, RT, psych nurse, social staff worker, vice president education, teacher, chief information security officer, bottle caser)? Give summary @ -[No] Was smoking cessation discussed for >3mins.? @ -[No] Was critical care preformed (if so, how long)? @ -[No] Were there social determinants of health that impacted care today? How? (Homeles sness, low income, unemployed, alcoholism, drug addiction, transportation, low edu. Level, literacy, decrease access to med. care, penitentiary, rehab)? @ -[No] Was there de-escalation of care discussed even if they declined (Discuss DNR or withdrawal of care, Hospice)? DNR status @ -[No] What co-morbidities impacted this encounter? (DM, HTN, Smoking, COPD, CAD, Cancer, CVA, ARF, Chemo, Hep., AIDS, mental health diagnosis, sleep apnea, morbid obesity)? @ -[None] Was patient admitted / discharged? Hospital course, mention meds given and route, prescriptions, significant lab abnormalities, going to OR and other pertinent info. @ -[This patient is an 83-year-old man who presents to have evaluation for generalized weakness and fatigue. On exam patient does appear mildly dehydrated. The patient is given some fluids after receiving the lab results. Note the patient also currently being treated as outpatient for urinary tract infection. I did offer admission but at this point the patient feeling somewhat better and would like to go home. Discussed return parameters as well as appropriate follow-up. Undiagnosed new problem with uncertain prognosis? @ -[No] Drug Therapy requiring intensive monitoring for toxicity (Heparin, Nitro, Insulin, Cardizem)? @ -[No] Were any procedures done? @ -[No] Diagnosis/symptom? @ -[Acute generalized weakness Mild dehydration Acute, or Chronic, or Acute on Chronic? @ -[Acute Uncomplicated (without systemic symptoms) or Complicated (systemic symptoms)? @ -[Uncomplicated Side effects of treatment? @ -[No] Exacerbation, Progression, or Severe Exacerbation? @ -[No] Poses a threat to life or bodily function? How? (Chest pain, USA, GA, pneumonia, PE, COPD, DKA, ARF, appy, cholecystitis, CVA, Diverticulitis, Homicidal, Suicidal, threat to staff... and all critical care pts) @ -[No] - Lab Data Result diagrams: 02/21/24 01:19 02/21/24 01:19 Lab Results 02/21/24 02/21/24 02/21/24 Range/Units 01:19 01:19 01:19 WBC 11.5 H (3.8-10.6) k/uL RBC 4.45 (4.30-5.90) m/uL Hgb 13.4 (13.0-17.5) gm/dL Hct 43.1 (39.0-53.0) % MCV 97.0 (80.0-100.0) fL MCH 30.2 (25.0-35.0) pg MCHC 31.1 (31.0-37.0) g/dL RDW 13.7 (11.5-15.5) % Plt Count 171 (150-450) k/uL MPV 7.7 Neutrophils % 87 % Lymphocytes % 4 % Monocytes % 5 % Eosinophils % 4 % Basophils % 0 % Neutrophils # 9.9 H (1.3-7.7) k/uL Lymphocytes # 0.5 L (1.0-4.8) k/uL Monocytes # 0.5 (0-1.0) k/uL Eosinophils # 0.4 (0-0.7) k/uL Basophils # 0.0 (0-0.2) k/uL PT 10.2 (10.0-12.5) sec INR 0.9 (<1.2) APTT 23.8 (22.0-30.0) sec Sodium 141 (137-145) mmol/L Potassium 4.2 (3.5-5.1) mmol/L Chloride 106 (98-107) mmol/L Carbon Dioxide 29 (22-30) mmol/L Anion Gap 6 mmol/L BUN 19 (9-20) mg/dL Creatinine 0.88 (0.66-1.25) mg/dL Est GFR (CKD-EPI)AfAm >90 (>60 ml/min/1.73 sqM) Est GFR (CKD-EPI)NonAf 80 (>60 ml/min/1.73 sqM) Glucose 219 H (74-99) mg/dL POC Glucose (mg/dL) (70-110) mg/dL POC Glu Security Installation Technician ID Plasma Lactic Acid Francisco Javier (0.7-2.0) mmol/L Calcium 8.9 (8.4-10.2) mg/dL Total Bilirubin 0.6 (0.2-1.3) mg/dL AST 19 (17-59) U/L ALT 16 (4-49) U/L Alkaline Phosphatase 80 (38-126) U/L Troponin I (0.000-0.034) ng/mL Total Protein 7.8 (6.3-8.2) g/dL Albumin 4.3 (3.5-5.0) g/dL Urine Color Urine Appearance (Clear) Urine pH (5.0-8.0) Ur Specific [place] (1.001-1.035) Urine Protein (Negative) Urine Glucose (UA) (Negative) Urine Ketones (Negative) Urine Blood (Negative) Urine Nitrite (Negative) Urine Bilirubin (Negative) Urine Urobilinogen (<2.0) mg/dL Ur Leukocyte Esterase (Negative) Urine RBC (0-5) /hpf Urine WBC (0-5) /hpf Amorphous Sediment (None) /hpf Hyaline Casts (0-2) /lpf Granular Casts (0) /lpf 02/21/24 02/21/24 02/21/24 Range/Units 01:19 01:19 02:32 WBC (3.8-10.6) k/uL RBC (4.30-5.90) m/uL Hgb (13.0-17.5) gm/dL Hct (39.0-53.0) % MCV (80.0-100.0) fL MCH (25.0-35.0) pg MCHC (31.0-37.0) g/dL RDW (11.5-15.5) % Plt Count (150-450) k/uL MPV Neutrophils % % Lymphocytes % % Monocytes % % Eosinophils % % Basophils % % Neutrophils # (1.3-7.7) k/uL Lymphocytes # (1.0-4.8) k/uL Monocytes # (0-1.0) k/uL Eosinophils # (0-0.7) k/uL Basophils # (0-0.2) k/uL PT (10.0-12.5) sec INR (<1.2) APTT (22.0-30.0) sec Sodium (137-145) mmol/L Potassium (3.5-5.1) mmol/L Chloride (98-107) mmol/L Carbon Dioxide (22-30) mmol/L Anion Gap mmol/L BUN (9-20) mg/dL Creatinine (0.66-1.25) mg/dL Est GFR (CKD-EPI)AfAm (>60 ml/min/1.73 sqM) Est GFR (CKD-EPI)NonAf (>60 ml/min/1.73 sqM) Glucose (74-99) mg/dL POC Glucose (mg/dL) 207 H (70-110) mg/dL POC Glu Security Installation Technician ID Jose Zapata Plasma Lactic Acid Francisco Javier 1.4 (0.7-2.0) mmol/L Calcium (8.4-10.2) mg/dL Total Bilirubin (0.2-1.3) mg/dL AST (17-59) U/L ALT (4-49) U/L Alkaline Phosphatase (38-126) U/L Troponin I <0.012 (0.000-0.034) ng/mL Total Protein (6.3-8.2) g/dL Albumin (3.5-5.0) g/dL Urine Color Urine Appearance (Clear) Urine pH (5.0-8.0) Ur Specific [place] (1.001-1.035) Urine Protein (Negative) Urine Glucose (UA) (Negative) Urine Ketones (Negative) Urine Blood (Negative) Urine Nitrite (Negative) Urine Bilirubin (Negative) Urine Urobilinogen (<2.0) mg/dL Ur Leukocyte Esterase (Negative) Urine RBC (0-5) /hpf Urine WBC (0-5) /hpf Amorphous Sediment (None) /hpf Hyaline Casts (0-2) /lpf Granular Casts (0) /lpf 02/21/24 Range/Units 05:47 WBC (3.8-10.6) k/uL RBC (4.30-5.90) m/uL Hgb (13.0-17.5) gm/dL Hct (39.0-53.0) % MCV (80.0-100.0) fL MCH (25.0-35.0) pg MCHC (31.0-37.0) g/dL RDW (11.5-15.5) % Plt Count (150-450) k/uL MPV Neutrophils % % Lymphocytes % % Monocytes % % Eosinophils % % Basophils % % Neutrophils # (1.3-7.7) k/uL Lymphocytes # (1.0-4.8) k/uL Monocytes # (0-1.0) k/uL Eosinophils # (0-0.7) k/uL Basophils # (0-0.2) k/uL PT (10.0-12.5) sec INR (<1.2) APTT (22.0-30.0) sec Sodium (137-145) mmol/L Potassium (3.5-5.1) mmol/L Chloride (98-107) mmol/L Carbon Dioxide (22-30) mmol/L Anion Gap mmol/L BUN (9-20) mg/dL Creatinine (0.66-1.25) mg/dL Est GFR (CKD-EPI)AfAm (>60 ml/min/1.73 sqM) Est GFR (CKD-EPI)NonAf (>60 ml/min/1.73 sqM) Glucose (74-99) mg/dL POC Glucose (mg/dL) (70-110) mg/dL POC Glu Security Installation Technician ID Plasma Lactic Acid Francisco Javier (0.7-2.0) mmol/L Calcium (8.4-10.2) mg/dL Total Bilirubin (0.2-1.3) mg/dL AST (17-59) U/L ALT (4-49) U/L Alkaline Phosphatase (38-126) U/L Troponin I (0.000-0.034) ng/mL Total Protein (6.3-8.2) g/dL Albumin (3.5-5.0) g/dL Urine Color Light Yellow Urine Appearance Cloudy (Clear) Urine pH 5.5 (5.0-8.0) Ur Specific [place] 1.023 (1.001-1.035) Urine Protein 1+ H (Negative) Urine Glucose (UA) Trace H (Negative) Urine Ketones 1+ H (Negative) Urine Blood Negative (Negative) Urine Nitrite Negative (Negative) Urine Bilirubin Negative (Negative) Urine Urobilinogen 0.2 (<2.0) mg/dL Ur Leukocyte Esterase Negative (Negative) Urine RBC 2 (0-5) /hpf Urine WBC 5 (0-5) /hpf Amorphous Sediment Moderate H (None) /hpf Hyaline Casts 10 H (0-2) /lpf Granular Casts 2 (0) /lpf - EKG Data -: EKG Interpreted by Me EKG shows normal: sinus rhythm, axis (Normal), intervals (Normal), ST-T waves (Normal) Rate: normal (Rate 91) Interpretation: LVH Disposition Clinical Impression: Dehydration, Weakness Disposition: HOME SELF-CARE Condition: Good Instructions (If sedation given, give patient instructions): Dehydration (ED), Weakness (ED) Is patient prescribed a controlled substance at d/c from ED?: No Referrals: Venkat Finch MD [Primary Care Provider] - 1-2 days
[2024-02-21 02:28] LABS: INR 0.9 (<1.2); Partial Thromboplastin Time 23.8 sec (22.0-30.0); Prothrombin Time 10.2 sec (10.0-12.5)
[2024-02-21 02:35] LABS: ALT 16 U/L (4-49); AST 19 U/L (17-59); African American GFR (CKD) >90 (>60 ml/min/1.73 sqM); Albumin 4.3 g/dL (3.5-5.0); Alkaline Phosphatase 80 U/L (38-126); Anion Gap 6 mmol/L; Blood Urea Nitrogen 19 mg/dL (9-20); Calcium 8.9 mg/dL (8.4-10.2); Carbon Dioxide 29 mmol/L (22-30); Chloride 106 mmol/L (98-107); Glucose 219 mg/dL (74-99); Non-African American GFR(CKD) 80 (>60 ml/min/1.73 sqM); Potassium 4.2 mmol/L (3.5-5.1); Sodium 141 mmol/L (137-145); Total Bilirubin 0.6 mg/dL (0.2-1.3); Total Protein 7.8 g/dL (6.3-8.2)
[2024-02-21 02:35] LABS: Glucose,Whole Blood 207 mg/dL (70-110)
[2024-02-21] MEDS: SODIUM CHLORIDE 0.9% 1,000 ML IV ONE (04:41)
--- NOTE | 2024-02-21 04:44 | XR ---
EXAM: XR Chest, 2 Views CLINICAL HISTORY: Weakness TECHNIQUE: Frontal and lateral views of the chest. COMPARISON: 12-09-19 FINDINGS: Lungs: Unremarkable. No consolidation. Pleural space: Unremarkable. Mediastinum: Mediastinal clips. Normal mediastinal contour. Bones/joints: No acute findings. Sternal wires. IMPRESSION: No acute findings or substantial change.
[2024-02-21 07:15] LABS: Color,Urine Light Yellow
[2024-02-21 07:16] LABS: Appearance,Urine Cloudy (Clear); Bilirubin,Urine Negative (Negative); Blood,Urine Negative (Negative); Glucose,Urine (UA) Trace (Negative); Ketones,Urine 1+ (Negative); Leukocyte Esterase,Urine Negative (Negative); Nitrite,Urine Negative (Negative); PH, Urine 5.5 (5.0-8.0); Protein,Urine 1+ (Negative); Specific Gravity,Urine 1.023 (1.001-1.035); Urobilinogen,Urine 0.2 mg/dL (<2.0)
[2024-02-21 07:17] LABS: Amorphous Sediment,Urine Moderate /hpf; RBC,Urine 2 /hpf (0-5); WBC,Urine 5 /hpf (0-5)
[2024-02-21 07:18] LABS: Granular Casts,Urine 2 /lpf (0); Hyaline Casts,Urine 10 /lpf (0-2)
[2024-02-21 08:13] VITALS: BP 177/77; PULSE 72; RESP 17; TEMP 98.6
== END 2024-02-21 08:50 | disposition home or self-care (01) ==
LOC: EC 00:41
DX: E86.0 Dehydration (principal); R53.1 Weakness; Z88.5 Allergy status to narcotic agent
CPT/HCPCS: 36415; 71046; 80053; 81001; 83605; 84484; 85025; 85610; 85730; 93005; 96360; 99285

== ENCOUNTER 2024-09-02 17:22 | Inpatient (IN) | payer MEDICARE, BC ==
[2024-09-02] MEDS: SODIUM CHLORIDE 0.9% 1,000 ML IV STA (18:03)
--- NOTE | 2024-09-02 18:03 | ED ---
General Adult HPI - General Chief complaint: Neuro Symptoms/Deficit Stated complaint: weakness Time Seen by Provider: 09/02/24 17:37 Source: patient, family Mode of arrival: wheelchair Limitations: no limitations - History of Present Illness Initial comments: Patient is an 83-year-old gentleman the past medical history of prior CVA with residual left-sided deficits presenting today for altered mental status x 2 days. History is largely provided by patient's caregivers. States that yesterday patient was more weak and sluggish than normal, today he was able to walk with his walker like he normally would, his blood sugar was lower than normal in the morning at 90, and then this evening was 200 without him having eaten anything. When they rechecked his sugar he was also diaphoretic and shaky prompting them to bring him to the emergency department. - Related Data Home Medications Medication Instructions Recorded Confirmed Ferrous Sulfate [Iron (65 MG 325 mg PO DAILY 12/09/19 09/02/24 Elemental)] metFORMIN HCL [Glucophage] 1,000 mg PO BID 12/09/19 09/02/24 Aspirin EC [Ecotrin Low Dose] 81 mg PO DAILY 09/02/24 09/02/24 Cystex Cranberry Supplements 1 cap PO DAILY 09/02/24 09/02/24 Fluocinolone/Shower Cap 1 applic TOPICAL DAILY PRN 09/02/24 09/02/24 [Fluocinolone 0.01% Scalp Oil] Furosemide [Lasix] 20 mg PO DAILY PRN 09/02/24 09/02/24 Insulin Glargine [Lantus Vial] 3 unit SQ DAILY PRN 09/02/24 09/02/24 Ketoconazole 2% Shampoo [Nizoral] 1 applic TOPICAL Q48H 09/02/24 09/02/24 Lidocaine 5% Patch [Lidoderm] 1 patch TOPICAL DAILY 09/02/24 09/02/24 Losartan [Cozaar] 25 mg PO DAILY 09/02/24 09/02/24 Rosuvastatin [Crestor] 10 mg PO HS 09/02/24 09/02/24 Vit C/E/Zn/Coppr/Lutein/Zeaxan 1 cap PO BID 09/02/24 09/02/24 [Preservision Areds 2 Softgel] carvediloL [Coreg] 3.125 mg PO BID 09/02/24 09/02/24 glipiZIDE XL [Glucotrol Xl] 5 mg PO [id number] 09/02/24 09/02/24 Allergies Allergy/AdvReac Type Severity Reaction Status Date / Time codeine AdvReac Nausea & Verified 09/02/24 20:15 Vomiting Review of Systems ROS Statement: Those systems with pertinent positive or pertinent negative responses have been documented in the HPI. ROS Other: All systems not noted in ROS Statement are negative. Limitations: ROS unobtainable due to patients medical condition Past Medical History Past Medical History: Coronary Artery Disease (CAD), Cancer, CVA/TIA, Diabetes Mellitus, Deep Vein Thrombosis (DVT), Osteoarthritis (OA), Sleep Apnea/CPAP/BIPAP Additional Past Medical History / Comment(s): hx basal cell skin cancer, bone spurs in lt shoulder History of Any Multi-Drug Resistant Organisms: None Reported Past Surgical History: Coronary Bypass/CABG, Orthopedic Surgery Additional Past Surgical History / Comment(s): Rotator Cuff Surgery. left foot surgery. bilateral cataract surgery. gum surgery. hx. of removal of 3 fungal toenails cabg sep 2018 Past Anesthesia/Blood Transfusion Reactions: No Reported Reaction Past Psychological History: No Psychological Hx Reported Smoking Status: Never smoker Past Alcohol Use History: None Reported Past Drug Use History: None Reported - Past Family History Mother Family Medical History: No Reported History Additional Family Medical History / Comment(s): Mother of a "blood clot" Father Family Medical History: Coronary Artery Disease (CAD) General Exam - General Exam Comments Initial Comments: PE: CONSTITUTIONAL: [no apparent distress, well appearing] SKIN: [warm, dry, no jaundice, hives or petechiae] EYES:[ pupils are equally round, extraocular movements intact without nystagmus, clear conjunctiva, non-icteric sclera] HENT: [normocephalic, atraumatic, moist mucus membranes, oropharynx clear without exudates] NECK: , [Full range of motion, normal appearance] PULMONARY: [clear to auscultation without wheezes, rhonchi, or rales, normal excursion, no accessory muscle use and no stridor] CARDIOVASCULAR:[ regular rate, rhythm, normal S1 and S2. No appreciated murmurs, rubs or gallops. Strong radial pulses with intact distal perfusion. No lower extremity edema] GASTROINTESTINAL: [soft, active bowel sounds throughout, non-tender, non- distended, no palpable masses, no rebound or guarding. No hepatosplenomegaly] GENITOURINARY: MUSCULOSKELETAL: [Extremities have no gross deformity, no edema, redness, or swelling. No calf swelling ] NEUROLOGIC: [_a/o x 2-3, knows date, place and self unsure why he is here, GCS 15, otherwise normal mentation and speech. Right upper extremity and right lower extremity have 5 out of 5 strength sensation intact, Exam limited by patient's baseline neurodeficits, chronic left upper and left lower extremity weakness, questionable slight right facial droop, EOM intake, no visual field deficits] PSYCHIATRIC:[ _normal mood and affect, thought process is clear and linear] Limitations: no limitations Course Vital Signs 09/02/24 09/02/24 09/02/24 17:27 18:30 19:09 Temperature 98.7 F Pulse Rate 77 71 71 Respiratory 20 14 18 Rate Blood Pressure 167/71 168/64 176/65 O2 Sat by Pulse 94 L 98 97 Oximetry 09/02/24 09/02/24 09/03/24 19:21 21:37 00:00 Temperature Pulse Rate 70 85 65 Respiratory 20 20 18 Rate Blood Pressure 176/65 154/62 134/52 O2 Sat by Pulse 98 96 95 Oximetry 09/03/24 09/03/24 09/03/24 02:00 04:00 06:00 Temperature 98.4 F Pulse Rate 64 58 L 55 L Respiratory 16 16 16 Rate Blood Pressure 134/52 132/49 143/59 O2 Sat by Pulse 94 L 95 97 Oximetry 09/03/24 10:40 Temperature 97.6 F Pulse Rate 60 Respiratory 16 Rate Blood Pressure 161/60 O2 Sat by Pulse 98 Oximetry EKG Findings - EKG Comments: EKG Findings:: Sinus rhythm, rate 71 bpm, intervals within normal limits, normal axis, questionable ST elevation in V1, reviewed EKG performed on 02/21/2024, questionable ST elevation in V1 V2 and V3 were present on prior as well, only new changes or questionable ST depression in lead V6 and aVF otherwise no significant change from prior, no STEMI Medical Decision Making - Medical Decision Making Was pt. sent in by a medical professional or institution (, PA, BUILDING CONSTRUCTION ENGINEER, urgent care, hospital, or shelter...) When possible be specific @ -No Did you speak to anyone other than the patient for history (EMS, parent, family, police, friend...)? What history was obtained from this source @ -Spoke with patient's caregivers at bedside Did you review nursing and triage notes (agree or disagree)? Why? @ -I reviewed and agree with nursing and triage notes Were old charts reviewed (outside hosp., previous admission, EMS record, old EKG, old radiological studies, urgent care reports/EKG's, shelter records)? Report findings @ -Medical records reviewed Differential Diagnosis (chest pain, altered mental status, abdominal pain women, abdominal pain men, vaginal bleeding, weakness, fever, dyspnea, syncope, headache, dizziness, GI bleed, back pain, seizure, CVA, palpatations, mental health, musculoskeletal)? @ -Differential Altered Mental Status: Hypoglycemia, DKA, hypercapnia, overdose, infection, intracranial hemorrhage, hepatic encephalopathy, CVA, this is not meant to be an all-inclusive list EKG interpreted by me (3pts min.). @ -As above X-rays interpreted by me (1pt min.). @No cardiomegaly or consolidations, no pneumothorax CT interpreted by me (1pt min.). @ No evidence of hemorrhage or large vessel occlusion on CT brain and CTA respectively U/S interpreted by me (1pt. min.). @ -None done What testing was considered but not performed or refused? (CT, X-rays, U/S, labs)? Why? @ -None What meds were considered but not given or refused? Why? @ -None Did you discuss the management of the patient with other professionals (professionals i.e. , PA, BUILDING CONSTRUCTION ENGINEER, lab, RT, psych nurse, criminal justice social worker, fish conservationist, teacher, certification officer, heel caser)? Give summary @ -No Was smoking cessation discussed for >3mins.? @ -No Was critical care preformed (if so, how long)? @ -No Were there social determinants of health that impacted care today? How? (Homelessness, low income, unemployed, alcoholism, drug addiction, transportation, low edu. Level, literacy, decrease access to med. care, fci, rehab)? @ -No Was there de-escalation of care discussed even if they declined (Discuss DNR or withdrawal of care, Hospice)? @ -No What co-morbidities impacted this encounter? (DM, HTN, Smoking, COPD, CAD, Cancer, CVA, ARF, Chemo, Hep., AIDS, mental health diagnosis, sleep apnea, mo rbid obesity)? @ Prior CVA Was patient admitted / discharged? Hospital course, mention meds given and route, prescriptions, significant lab abnormalities, going to OR and other pertinent info. @Admission- This is a pleasant 83-year-old gentleman past medical history of prior CVA with right-sided deficits presenting for altered mental status x 2 days. 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 Caregivers think pt's speech is possibly less clear than usual as well. On my assessment patient is resting comfortably, awake and alert in no acute distress. He is pleasant and joking with me. Has known left- sided weakness, questionable right facial droop. His last known well was 2 days ago stroke alert was not called. Plan for CT brain CTA and comprehensive labs and imaging to assess for causes of altered mental status Labs significant for mild leukocytosis white count 15.3 with elevated neutrophils however there are no source of infection at this point. CT brain and CTA showed no acute process, CXR with mild pulmonary vascular changes. On reassessment patient has returned to baseline mental status, per caregivers at bedside however he still is too weak to ambulate with a cane like he normally would. Plan for admission for generalized weakness, pt agreeable with POC. Case discussed with Dr. Galan, kindly accepts pt for admission. Undiagnosed new problem with uncertain prognosis? @ -No Drug Therapy requiring intensive monitoring for toxicity (Heparin, Nitro, Insulin, Cardizem)? @ -No Were any procedures done? @ -No Diagnosis/symptom? Generalized weakness Acute, or Chronic, or Acute on Chronic? Acute Uncomplicated (without systemic symptoms) or Complicated (systemic symptoms)? @ -Default Side effects of treatment? @ -No Exacerbation, Progression, or Severe Exacerbation? @ -No Poses a threat to life or bodily function? How? (Chest pain, USA, MA, pneumonia, PE, COPD, DKA, ARF, appy, cholecystitis, CVA, Diverticulitis, Homicidal, Suicidal, threat to staff... and all critical care pts) @ -Potentially, if 2/2 TIA or underlying infection - Lab Data Result diagrams: 09/05/24 06:14 09/05/24 06:14 Lab Results 09/02/24 09/02/24 09/02/24 Range/Units 18:00 18:00 18:00 WBC 12.1 H (3.8-10.6) k/uL RBC 3.87 L (4.30-5.90) m/uL Hgb 12.4 L (13.0-17.5) gm/dL Hct 37.3 L (39.0-53.0) % MCV 96.5 (80.0-100.0) fL MCH 32.0 (25.0-35.0) pg MCHC 33.2 (31.0-37.0) g/dL RDW 14.3 (11.5-15.5) % Plt Count 195 (150-450) k/uL MPV 7.3 Immature Gran % (Auto) % Absolute Nucleated RBC % Neutrophils % 85 % Lymphocytes % 8 % Monocytes % 4 % Eosinophils % 1 % Basophils % 0 % Immature Gran # (0.00-0.04) X 10*3/uL Neutrophils # 10.2 H (1.3-7.7) k/uL Lymphocytes # 1.0 (1.0-4.8) k/uL Monocytes # 0.5 (0-1.0) k/uL Eosinophils # 0.2 (0-0.7) k/uL Basophils # 0.0 (0-0.2) k/uL NRBC/100 WBC Diff (0.00-0.01) X 10*3/uL PT 10.1 (10.0-12.5) sec INR 0.9 (<1.2) APTT 22.7 (22.0-30.0) sec Sodium 140 (137-145) mmol/L Potassium 5.5 H (3.5-5.1) mmol/L Chloride 106 (98-107) mmol/L Carbon Dioxide 25 (22-30) mmol/L Anion Gap 9 mmol/L BUN 24 H (9-20) mg/dL Creatinine 0.95 (0.66-1.25) mg/dL Est GFR (CKD-EPI) (>=60) Est GFR (CKD-EPI)AfAm 86 (>60 ml/min/1.73 sqM) Est GFR (CKD-EPI)NonAf 75 (>60 ml/min/1.73 sqM) BUN/Creatinine Ratio (12.00-20.00) Ratio Glucose 172 H (74-99) mg/dL POC Glucose (mg/dL) (70-110) mg/dL POC Glu Prescriptionist ID Estimated Ave Glu mg/dL mg/dL Hemoglobin A1c (<=6.0) % Calcium 9.0 (8.4-10.2) mg/dL Total Bilirubin 0.4 (0.2-1.3) mg/dL AST 35 (17-59) U/L ALT 20 (4-49) U/L Alkaline Phosphatase 39 (38-126) U/L Creatine Kinase 37 L (55-170) U/L Troponin I (0.000-0.034) ng/mL Total Protein 7.9 (6.3-8.2) g/dL Albumin 4.1 (3.5-5.0) g/dL Globulin (1.6-3.3) g/dL Albumin/Globulin Ratio (1.60-3.17) Ratio Triglycerides (0.00-149.00) mg/dL Cholesterol (0.00-200.00) mg/dL LDL Cholesterol, Calc (0.0-131.0) mg/dL VLDL Cholesterol, Calc (5.00-40.00) mg/dL HDL Cholesterol (40.00-60.00) mg/dL Cholesterol/HDL Ratio Ratio Procalcitonin (0.02-0.50) ng/mL TSH 1.340 (0.465-4.680) mIU/L Urine Color Urine Appearance (Clear) Urine pH (5.0-8.0) Ur Specific [place] (1.001-1.035) Urine Protein (Negative) Urine Glucose (UA) (Negative) Urine Ketones (Negative) Urine Blood (Negative) Urine Nitrite (Negative) Urine Bilirubin (Negative) Urine Urobilinogen (<2.0) mg/dL Ur Leukocyte Esterase (Negative) Influenza Type A (PCR) (Not Detectd) Influenza Type B (PCR) (Not Detectd) RSV (PCR) (Not Detectd) SARS-CoV-2 (PCR) (Not Detectd) 09/02/24 09/02/24 09/02/24 Range/Units 18:00 18:00 20:26 WBC (3.8-10.6) k/uL RBC (4.30-5.90) m/uL Hgb (13.0-17.5) gm/dL Hct (39.0-53.0) % MCV (80.0-100.0) fL MCH (25.0-35.0) pg MCHC (31.0-37.0) g/dL RDW (11.5-15.5) % Plt Count (150-450) k/uL MPV Immature Gran % (Auto) % Absolute Nucleated RBC % Neutrophils % % Lymphocytes % % Monocytes % % Eosinophils % % Basophils % % Immature Gran # (0.00-0.04) X 10*3/uL Neutrophils # (1.3-7.7) k/uL Lymphocytes # (1.0-4.8) k/uL Monocytes # (0-1.0) k/uL Eosinophils # (0-0.7) k/uL Basophils # (0-0.2) k/uL NRBC/100 WBC Diff (0.00-0.01) X 10*3/uL PT (10.0-12.5) sec INR (<1.2) APTT (22.0-30.0) sec Sodium (137-145) mmol/L Potassium (3.5-5.1) mmol/L Chloride (98-107) mmol/L Carbon Dioxide (22-30) mmol/L Anion Gap mmol/L BUN (9-20) mg/dL Creatinine (0.66-1.25) mg/dL Est GFR (CKD-EPI) (>=60) Est GFR (CKD-EPI)AfAm (>60 ml/min/1.73 sqM) Est GFR (CKD-EPI)NonAf (>60 ml/min/1.73 sqM) BUN/Creatinine Ratio (12.00-20.00) Ratio Glucose (74-99) mg/dL POC Glucose (mg/dL) (70-110) mg/dL POC Glu Prescriptionist ID Estimated Ave Glu mg/dL mg/dL Hemoglobin A1c (<=6.0) % Calcium (8.4-10.2) mg/dL Total Bilirubin (0.2-1.3) mg/dL AST (17-59) U/L ALT (4-49) U/L Alkaline Phosphatase (38-126) U/L Creatine Kinase (55-170) U/L Troponin I <0.012 (0.000-0.034) ng/mL Total Protein (6.3-8.2) g/dL Albumin (3.5-5.0) g/dL Globulin (1.6-3.3) g/dL Albumin/Globulin Ratio (1.60-3.17) Ratio Triglycerides (0.00-149.00) mg/dL Cholesterol (0.00-200.00) mg/dL LDL Cholesterol, Calc (0.0-131.0) mg/dL VLDL Cholesterol, Calc (5.00-40.00) mg/dL HDL Cholesterol (40.00-60.00) mg/dL Cholesterol/HDL Ratio Ratio Procalcitonin (0.02-0.50) ng/mL TSH (0.465-4.680) mIU/L Urine Color Colorless Urine Appearance Clear (Clear) Urine pH 6.5 (5.0-8.0) Ur Specific [place] 1.026 (1.001-1.035) Urine Protein Negative (Negative) Urine Glucose (UA) Negative (Negative) Urine Ketones Negative (Negative) Urine Blood Negative (Negative) Urine Nitrite Negative (Negative) Urine Bilirubin Negative (Negative) Urine Urobilinogen <2.0 (<2.0) mg/dL Ur Leukocyte Esterase Negative (Negative) Influenza Type A (PCR) Not Detected (Not Detectd) Influenza Type B (PCR) Not Detected (Not Detectd) RSV (PCR) Not Detected (Not Detectd) SARS-CoV-2 (PCR) Not Detected (Not Detectd) 09/02/24 09/02/24 09/03/24 Range/Units 20:53 20:53 17:53 WBC (3.8-10.6) k/uL RBC (4.30-5.90) m/uL Hgb (13.0-17.5) gm/dL Hct (39.0-53.0) % MCV (80.0-100.0) fL MCH (25.0-35.0) pg MCHC (31.0-37.0) g/dL RDW (11.5-15.5) % Plt Count (150-450) k/uL MPV Immature Gran % (Auto) % Absolute Nucleated RBC % Neutrophils % % Lymphocytes % % Monocytes % % Eosinophils % % Basophils % % Immature Gran # (0.00-0.04) X 10*3/uL Neutrophils # (1.3-7.7) k/uL Lymphocytes # (1.0-4.8) k/uL Monocytes # (0-1.0) k/uL Eosinophils # (0-0.7) k/uL Basophils # (0-0.2) k/uL NRBC/100 WBC Diff (0.00-0.01) X 10*3/uL PT (10.0-12.5) sec INR (<1.2) APTT (22.0-30.0) sec Sodium 140 (137-145) mmol/L Potassium 4.4 (3.5-5.1) mmol/L Chloride 106 (98-107) mmol/L Carbon Dioxide 26 (22-30) mmol/L Anion Gap 8 mmol/L BUN 20 (9-20) mg/dL Creatinine 0.94 (0.66-1.25) mg/dL Est GFR (CKD-EPI) (>=60) Est GFR (CKD-EPI)AfAm 87 (>60 ml/min/1.73 sqM) Est GFR (CKD-EPI)NonAf 76 (>60 ml/min/1.73 sqM) BUN/Creatinine Ratio (12.00-20.00) Ratio Glucose 132 H (74-99) mg/dL POC Glucose (mg/dL) (70-110) mg/dL POC Glu Prescriptionist ID Estimated Ave Glu mg/dL mg/dL Hemoglobin A1c (<=6.0) % Calcium 8.5 (8.4-10.2) mg/dL Total Bilirubin (0.2-1.3) mg/dL AST (17-59) U/L ALT (4-49) U/L Alkaline Phosphatase (38-126) U/L Creatine Kinase (55-170) U/L Troponin I <0.012 (0.000-0.034) ng/mL Total Protein (6.3-8.2) g/dL Albumin (3.5-5.0) g/dL Globulin (1.6-3.3) g/dL Albumin/Globulin Ratio (1.60-3.17) Ratio Triglycerides (0.00-149.00) mg/dL Cholesterol (0.00-200.00) mg/dL LDL Cholesterol, Calc (0.0-131.0) mg/dL VLDL Cholesterol, Calc (5.00-40.00) mg/dL HDL Cholesterol (40.00-60.00) mg/dL Cholesterol/HDL Ratio Ratio Procalcitonin 0.87 H (0.02-0.50) ng/mL TSH (0.465-4.680) mIU/L Urine Color Urine Appearance (Clear) Urine pH (5.0-8.0) Ur Specific [place] (1.001-1.035) Urine Protein (Negative) Urine Glucose (UA) (Negative) Urine Ketones (Negative) Urine Blood (Negative) Urine Nitrite (Negative) Urine Bilirubin (Negative) Urine Urobilinogen (<2.0) mg/dL Ur Leukocyte Esterase (Negative) Influenza Type A (PCR) (Not Detectd) Influenza Type B (PCR) (Not Detectd) RSV (PCR) (Not Detectd) SARS-CoV-2 (PCR) (Not Detectd) 09/03/24 09/04/24 09/04/24 Range/Units 20:31 05:22 05:22 WBC 6.84 (3.8-10.6) k/uL RBC 3.72 L (4.30-5.90) m/uL Hgb 11.4 L (13.0-17.5) gm/dL Hct 36.0 L (39.0-53.0) % MCV 96.8 (80.0-100.0) fL MCH 30.6 (25.0-35.0) pg MCHC 31.7 L (31.0-37.0) g/dL RDW 13.5 (11.5-15.5) % Plt Count 176 (150-450) k/uL MPV 9.3 L Immature Gran % (Auto) 0.10 % Absolute Nucleated RBC 0 % Neutrophils % 67.8 % Lymphocytes % 19.0 % Monocytes % 8.0 % Eosinophils % 4.7 % Basophils % 0.4 % Immature Gran # 0.01 (0.00-0.04) X 10*3/uL Neutrophils # 4.63 (1.3-7.7) k/uL Lymphocytes # 1.30 (1.0-4.8) k/uL Monocytes # 0.55 (0-1.0) k/uL Eosinophils # 0.32 (0-0.7) k/uL Basophils # 0.03 (0-0.2) k/uL NRBC/100 WBC Diff 0 (0.00-0.01) X 10*3/uL PT (10.0-12.5) sec INR (<1.2) APTT (22.0-30.0) sec Sodium (137-145) mmol/L Potassium (3.5-5.1) mmol/L Chloride (98-107) mmol/L Carbon Dioxide (22-30) mmol/L Anion Gap mmol/L BUN (9-20) mg/dL Creatinine (0.66-1.25) mg/dL Est GFR (CKD-EPI) (>=60) Est GFR (CKD-EPI)AfAm (>60 ml/min/1.73 sqM) Est GFR (CKD-EPI)NonAf (>60 ml/min/1.73 sqM) BUN/Creatinine Ratio (12.00-20.00) Ratio Glucose (74-99) mg/dL POC Glucose (mg/dL) 165 H (70-110) mg/dL POC Glu Prescriptionist ID Angie Malhotra Estimated Ave Glu mg/dL 137 mg/dL Hemoglobin A1c 6.4 H (<=6.0) % Calcium (8.4-10.2) mg/dL Total Bilirubin (0.2-1.3) mg/dL AST (17-59) U/L ALT (4-49) U/L Alkaline Phosphatase (38-126) U/L Creatine Kinase (55-170) U/L Troponin I (0.000-0.034) ng/mL Total Protein (6.3-8.2) g/dL Albumin (3.5-5.0) g/dL Globulin (1.6-3.3) g/dL Albumin/Globulin Ratio (1.60-3.17) Ratio Triglycerides (0.00-149.00) mg/dL Cholesterol (0.00-200.00) mg/dL LDL Cholesterol, Calc (0.0-131.0) mg/dL VLDL Cholesterol, Calc (5.00-40.00) mg/dL HDL Cholesterol (40.00-60.00) mg/dL Cholesterol/HDL Ratio Ratio Procalcitonin (0.02-0.50) ng/mL TSH (0.465-4.680) mIU/L Urine Color Urine Appearance (Clear) Urine pH (5.0-8.0) Ur Specific [place] (1.001-1.035) Urine Protein (Negative) Urine Glucose (UA) (Negative) Urine Ketones (Negative) Urine Blood (Negative) Urine Nitrite (Negative) Urine Bilirubin (Negative) Urine Urobilinogen (<2.0) mg/dL Ur Leukocyte Esterase (Negative) Influenza Type A (PCR) (Not Detectd) Influenza Type B (PCR) (Not Detectd) RSV (PCR) (Not Detectd) SARS-CoV-2 (PCR) (Not Detectd) 09/04/24 09/04/24 09/04/24 Range/Units 05:22 05:29 11:50 WBC (3.8-10.6) k/uL RBC (4.30-5.90) m/uL Hgb (13.0-17.5) gm/dL Hct (39.0-53.0) % MCV (80.0-100.0) fL MCH (25.0-35.0) pg MCHC (31.0-37.0) g/dL RDW (11.5-15.5) % Plt Count (150-450) k/uL MPV Immature Gran % (Auto) % Absolute Nucleated RBC % Neutrophils % % Lymphocytes % % Monocytes % % Eosinophils % % Basophils % % Immature Gran # (0.00-0.04) X 10*3/uL Neutrophils # (1.3-7.7) k/uL Lymphocytes # (1.0-4.8) k/uL Monocytes # (0-1.0) k/uL Eosinophils # (0-0.7) k/uL Basophils # (0-0.2) k/uL NRBC/100 WBC Diff (0.00-0.01) X 10*3/uL PT (10.0-12.5) sec INR (<1.2) APTT (22.0-30.0) sec Sodium 141 (137-145) mmol/L Potassium 4.7 (3.5-5.1) mmol/L Chloride 106 (98-107) mmol/L Carbon Dioxide 26.9 (22-30) mmol/L Anion Gap 8.10 mmol/L BUN 20.4 (9-20) mg/dL Creatinine 0.9 (0.66-1.25) mg/dL Est GFR (CKD-EPI) 85 (>=60) Est GFR (CKD-EPI)AfAm (>60 ml/min/1.73 sqM) Est GFR (CKD-EPI)NonAf (>60 ml/min/1.73 sqM) BUN/Creatinine Ratio 22.67 H (12.00-20.00) Ratio Glucose 86 (74-99) mg/dL POC Glucose (mg/dL) 88 (70-110) mg/dL POC Glu Prescriptionist ID Angie Malhotra Estimated Ave Glu mg/dL mg/dL Hemoglobin A1c (<=6.0) % Calcium 8.8 (8.4-10.2) mg/dL Total Bilirubin (0.2-1.3) mg/dL AST (17-59) U/L ALT (4-49) U/L Alkaline Phosphatase (38-126) U/L Creatine Kinase (55-170) U/L Troponin I (0.000-0.034) ng/mL Total Protein (6.3-8.2) g/dL Albumin (3.5-5.0) g/dL Globulin (1.6-3.3) g/dL Albumin/Globulin Ratio (1.60-3.17) Ratio Triglycerides 53.40 (0.00-149.00) mg/dL Cholesterol 84.00 (0.00-200.00) mg/dL LDL Cholesterol, Calc 31.5 (0.0-131.0) mg/dL VLDL Cholesterol, Calc 10.68 (5.00-40.00) mg/dL HDL Cholesterol 41.80 (40.00-60.00) mg/dL Cholesterol/HDL Ratio 2.01 Ratio Procalcitonin (0.02-0.50) ng/mL TSH (0.465-4.680) mIU/L Urine Color Colorless Urine Appearance Clear (Clear) Urine pH 7.0 (5.0-8.0) Ur Specific [place] 1.015 (1.001-1.035) Urine Protein Negative (Negative) Urine Glucose (UA) Negative (Negative) Urine Ketones Negative (Negative) Urine Blood Negative (Negative) Urine Nitrite Negative (Negative) Urine Bilirubin Negative (Negative) Urine Urobilinogen <2.0 (<2.0) mg/dL Ur Leukocyte Esterase Negative (Negative) Influenza Type A (PCR) (Not Detectd) Influenza Type B (PCR) (Not Detectd) RSV (PCR) (Not Detectd) SARS-CoV-2 (PCR) (Not Detectd) 09/04/24 09/04/24 09/04/24 Range/Units 12:03 17:29 20:24 WBC (3.8-10.6) k/uL RBC (4.30-5.90) m/uL Hgb (13.0-17.5) gm/dL Hct (39.0-53.0) % MCV (80.0-100.0) fL MCH (25.0-35.0) pg MCHC (31.0-37.0) g/dL RDW (11.5-15.5) % Plt Count (150-450) k/uL MPV Immature Gran % (Auto) % Absolute Nucleated RBC % Neutrophils % % Lymphocytes % % Monocytes % % Eosinophils % % Basophils % % Immature Gran # (0.00-0.04) X 10*3/uL Neutrophils # (1.3-7.7) k/uL Lymphocytes # (1.0-4.8) k/uL Monocytes # (0-1.0) k/uL Eosinophils # (0-0.7) k/uL Basophils # (0-0.2) k/uL NRBC/100 WBC Diff (0.00-0.01) X 10*3/uL PT (10.0-12.5) sec INR (<1.2) APTT (22.0-30.0) sec Sodium (137-145) mmol/L Potassium (3.5-5.1) mmol/L Chloride (98-107) mmol/L Carbon Dioxide (22-30) mmol/L Anion Gap mmol/L BUN (9-20) mg/dL Creatinine (0.66-1.25) mg/dL Est GFR (CKD-EPI) (>=60) Est GFR (CKD-EPI)AfAm (>60 ml/min/1.73 sqM) Est GFR (CKD-EPI)NonAf (>60 ml/min/1.73 sqM) BUN/Creatinine Ratio (12.00-20.00) Ratio Glucose (74-99) mg/dL POC Glucose (mg/dL) 136 H 131 H 207 H (70-110) mg/dL POC Glu Prescriptionist ANIKA Alyssa Milanllbarb Sheetsisabelleanna Davis [address] Glu mg/dL mg/dL Hemoglobin A1c (<=6.0) % Calcium (8.4-10.2) mg/dL Total Bilirubin (0.2-1.3) mg/dL AST (17-59) U/L ALT (4-49) U/L Alkaline Phosphatase (38-126) U/L Creatine Kinase (55-170) U/L Troponin I (0.000-0.034) ng/mL Total Protein (6.3-8.2) g/dL Albumin (3.5-5.0) g/dL Globulin (1.6-3.3) g/dL Albumin/Globulin Ratio (1.60-3.17) Ratio Triglycerides (0.00-149.00) mg/dL Cholesterol (0.00-200.00) mg/dL LDL Cholesterol, Calc (0.0-131.0) mg/dL VLDL Cholesterol, Calc (5.00-40.00) mg/dL HDL Cholesterol (40.00-60.00) mg/dL Cholesterol/HDL Ratio Ratio Procalcitonin (0.02-0.50) ng/mL TSH (0.465-4.680) mIU/L Urine Color Urine Appearance (Clear) Urine pH (5.0-8.0) Ur Specific [place] (1.001-1.035) Urine Protein (Negative) Urine Glucose (UA) (Negative) Urine Ketones (Negative) Urine Blood (Negative) Urine Nitrite (Negative) Urine Bilirubin (Negative) Urine Urobilinogen (<2.0) mg/dL Ur Leukocyte Esterase (Negative) Influenza Type A (PCR) (Not Detectd) Influenza Type B (PCR) (Not Detectd) RSV (PCR) (Not Detectd) SARS-CoV-2 (PCR) (Not Detectd) 09/05/24 09/05/24 09/05/24 Range/Units 05:31 06:14 06:14 WBC 8.62 (3.8-10.6) k/uL RBC 3.99 L (4.30-5.90) m/uL Hgb 12.3 L (13.0-17.5) gm/dL Hct 38.4 L (39.0-53.0) % MCV 96.2 (80.0-100.0) fL MCH 30.8 (25.0-35.0) pg MCHC 32.0 (31.0-37.0) g/dL RDW 13.4 (11.5-15.5) % Plt Count 202 (150-450) k/uL MPV 9.4 L Immature Gran % (Auto) 0.50 % Absolute Nucleated RBC 0 % Neutrophils % 73.4 % Lymphocytes % 13.2 % Monocytes % 8.2 % Eosinophils % 4.4 % Basophils % 0.3 % Immature Gran # 0.04 (0.00-0.04) X 10*3/uL Neutrophils # 6.32 (1.3-7.7) k/uL Lymphocytes # 1.14 (1.0-4.8) k/uL Monocytes # 0.71 (0-1.0) k/uL Eosinophils # 0.38 H (0-0.7) k/uL Basophils # 0.03 (0-0.2) k/uL NRBC/100 WBC Diff 0 (0.00-0.01) X 10*3/uL PT (10.0-12.5) sec INR (<1.2) APTT (22.0-30.0) sec Sodium 140 (137-145) mmol/L Potassium 4.6 (3.5-5.1) mmol/L Chloride 106 (98-107) mmol/L Carbon Dioxide 23.5 (22-30) mmol/L Anion Gap 10.50 mmol/L BUN 20.9 (9-20) mg/dL Creatinine 0.9 (0.66-1.25) mg/dL Est GFR (CKD-EPI) 85 (>=60) Est GFR (CKD-EPI)AfAm (>60 ml/min/1.73 sqM) Est GFR (CKD-EPI)NonAf (>60 ml/min/1.73 sqM) BUN/Creatinine Ratio 23.22 H (12.00-20.00) Ratio Glucose 121 H (74-99) mg/dL POC Glucose (mg/dL) 117 H (70-110) mg/dL POC Glu Prescriptionist ID Maddi Davis [address]imated [address] Glu mg/dL mg/dL Hemoglobin A1c (<=6.0) % Calcium 9.0 (8.4-10.2) mg/dL Total Bilirubin 0.3 (0.2-1.3) mg/dL AST 14 (17-59) U/L ALT 13 (4-49) U/L Alkaline Phosphatase 60 (38-126) U/L Creatine Kinase (55-170) U/L Troponin I (0.000-0.034) ng/mL Total Protein 7.5 (6.3-8.2) g/dL Albumin 3.7 L (3.5-5.0) g/dL Globulin 3.8 H (1.6-3.3) g/dL Albumin/Globulin Ratio 0.97 L (1.60-3.17) Ratio Triglycerides (0.00-149.00) mg/dL Cholesterol (0.00-200.00) mg/dL LDL Cholesterol, Calc (0.0-131.0) mg/dL VLDL Cholesterol, Calc (5.00-40.00) mg/dL HDL Cholesterol (40.00-60.00) mg/dL Cholesterol/HDL Ratio Ratio Procalcitonin (0.02-0.50) ng/mL TSH (0.465-4.680) mIU/L Urine Color Urine Appearance (Clear) Urine pH (5.0-8.0) Ur Specific [place] (1.001-1.035) Urine Protein (Negative) Urine Glucose (UA) (Negative) Urine Ketones (Negative) Urine Blood (Negative) Urine Nitrite (Negative) Urine Bilirubin (Negative) Urine Urobilinogen (<2.0) mg/dL Ur Leukocyte Esterase (Negative) Influenza Type A (PCR) (Not Detectd) Influenza Type B (PCR) (Not Detectd) RSV (PCR) (Not Detectd) SARS-CoV-2 (PCR) (Not Detectd) Disposition Clinical Impression: Generalized weakness Disposition: ADMITTED IP TO THIS HOSP Condition: Stable
[2024-09-02 18:12] LABS: Basophils % (A) 0 %; Eosinophils # (A) 0.2 k/uL (0-0.7); Eosinophils % (A) 1 %; HCT 37.3 % (39.0-53.0); HGB 12.4 gm/dL (13.0-17.5); Lymphocytes % (A) 8 %; MCHC 33.2 g/dL (31.0-37.0); MCV 96.5 fL (80.0-100.0); Mean Platelet Volume 7.3; Monocytes # (A) 0.5 k/uL (0-1.0); Monocytes % (A) 4 %; Neutrophils # (A) 10.2 k/uL (1.3-7.7); Neutrophils % (A) 85 %; Platelet Count 195 k/uL (150-450); RBC 3.87 m/uL (4.30-5.90); RDW 14.3 % (11.5-15.5); WBC 12.1 k/uL (3.8-10.6)
[2024-09-02 18:24] LABS: ALT 20 U/L (4-49); African American GFR (CKD) 86 (>60 ml/min/1.73 sqM); Anion Gap 9 mmol/L; Blood Urea Nitrogen 24 mg/dL (9-20); Carbon Dioxide 25 mmol/L (22-30); Chloride 106 mmol/L (98-107); Creatine Kinase 37 U/L (55-170); Glucose 172 mg/dL (74-99); Non-African American GFR(CKD) 75 (>60 ml/min/1.73 sqM); Sodium 140 mmol/L (137-145); Total Bilirubin 0.4 mg/dL (0.2-1.3)
[2024-09-02 18:28] LABS: AST 35 U/L (17-59); Albumin 4.1 g/dL (3.5-5.0); Alkaline Phosphatase 39 U/L (38-126); Potassium 5.5 mmol/L (3.5-5.1); Total Protein 7.9 g/dL (6.3-8.2)
[2024-09-02 19:01] LABS: INR 0.9 (<1.2); Partial Thromboplastin Time 22.7 sec (22.0-30.0); Prothrombin Time 10.1 sec (10.0-12.5)
--- NOTE | 2024-09-02 19:08 | XR ---
EXAMINATION TYPE: XR chest 2V DATE OF EXAM: 09/02/2024 6:53 PM COMPARISON: Prior chest radiograph, most recently dated 02/21/2024. CLINICAL INDICATION: Male, 83 years old with history of altered mental status; [facility] TECHNIQUE: XR chest 2V Frontal and lateral views of the chest. FINDINGS: Cardiac silhouette within normal limits for size. Median sternotomy wires. Mild pulmonary vascular congestive changes and possible trace bilateral pleural effusions. No acute f ocal consolidation to suggest pneumonia. No pneumothorax. No acute osseous body. IMPRESSION: Mild pulmonary vascular congestive changes and trace effusions. [facility], , 09/02/2024 7:06 PM
--- NOTE | 2024-09-02 19:18 | CT ---
EXAMINATION TYPE: CT brain wo con DATE OF EXAM: 09/02/2024 6:51 PM COMPARISON: CT study 12/09/2019. CLINICAL INDICATION: Male, 83 years old with history of AMS, increased lethargy, question left facial droo, woke up this am unable to walk right side. had prior stroke but was able to walk now todaay un able to walk move right arm . right side facial droop. TECHNIQUE: Brain: Axial CT images of the brain were obtained with coronal and sagittal reformats created and rev iewed. Contrast used: None. Oral contrast used: None. CT DLP: Combined DLP of 1458.6 mGycm, Automated exposure control for dose reduction was used. FINDINGS: Brain: No acute intracranial hemorrhage, midline shift or significant mass effect. Ventricles and sulci are prominent compatible with generalized cerebral volume loss. No sizable extra-axial fluid collection. Patch periventricular and subcortical white matter hypoattenuation likely reflecting chronic vascular ischemic disease. Right-sided old basal ganglia infarct versus dilated perivascular space. Basal cis terns appear patent. No significant scalp hematoma or depressed calvarial fracture. Previous bilatera l cataract lens extraction noted. Paranasal sinuses and mastoid air cells appear patent. IMPRESSION: No acute intracranial process. [facility], , 09/02/2024 7:16 PM
--- NOTE | 2024-09-02 19:41 | CT ---
EXAMINATION TYPE: CT angio head neck DATE OF EXAM: 09/02/2024 7:12 PM COMPARISON: . CLINICAL INDICATION: Male, 83 years old with history of hx CVA, increased lethargy, quest. L face juan op; PHH, woke up this am unable to walk right side. had prior stroke but was able to walk now todaay unable to walk move right arm . right side facial droop. TECHNIQUE: Axially acquired helical CT angiogram of the head and neck was obtained with contrast. Axi al images are supplemented with 3D reconstructions and MIP images which were post-processed at an in dependent workstation. NASCET criteria used. Contrast used:65 ml mL of Isovue 370 with IV Contrast, Oral contrast used: None. CT DLP: Combined DLP of 1458.6 mGycm, Automated exposure control for dose reduction was used. FINDINGS: CTA HEAD: No evidence of acute intracranial hemorrhage, mass effect, or midline shift. The ventricles, sulci, a nd cisterns are unremarkable. Vertebral arteries: The vertebral arteries are patent. Vertebral artery dominance: Left Basilar artery: The basilar artery is intact. The basilar artery bifurcation is normal. Internal Carotid arteries: The cervical, petrous, cavernous and supraclinoid segments are normal. ASHWIN: Patent with no evidence of aneurysm. ACOM: Present without evidence of aneurysm. MCA: Patent with no evidence of aneurysm. TESTING SHAKING SHIPPING: Patent with no evidence of aneurysm. PCOM: origin of the right TESTING SHAKING SHIPPING. Hypoplastic left P-comm. Dural sinuses: Patent. CTA NECK: Right Carotid System: The common carotid artery and external carotid artery are patent. The carotid bifurcation demonstrate s calcified left carotid plaque with approximately 60-70 % stenosis of the proximal right internal ca rotid artery. The remaining portions of the internal carotid artery demonstrate normal size without s ignificant narrowing. Left Carotid System: The common carotid artery and external carotid artery are patent. The carotid bifurcation demonstrate s mixed calcified atherosclerotic plaque with approximately 70-80 % stenosis of the proximal left ICA . The remaining portions of the internal carotid artery demonstrate normal size without significant n arrowing. Vertebral arteries are patent without evidence hemodynamically significant stenosis. There is a three-vessel aortic arch. Moderate stenosis of the right brachycephalic origin due to dens e ossified plaque. No evidence of hemodynamically significant stenosis. Upper thorax: IMPRESSION: 1. No evidence of dissection of the cervical internal carotid arteries or vertebral arteries. 2. Approximately 70-80% stenosis of the proximal left ICA due to mixed calcified carotid plaque. 3. Approximately 60-70% stenosis of the proximal right internal carotid artery due to mixed calcifie d plaque. 4. No evidence of intracranial high-grade stenosis or intracranial aneurysm. [facility], , 09/02/2024 7:39 PM
[2024-09-02 20:35] LABS: Appearance,Urine Clear (Clear); Bilirubin,Urine Negative (Negative); Blood,Urine Negative (Negative); Color,Urine Colorless; Glucose,Urine (UA) Negative (Negative); Ketones,Urine Negative (Negative); Leukocyte Esterase,Urine Negative (Negative); Nitrite,Urine Negative (Negative); PH, Urine 6.5 (5.0-8.0); Protein,Urine Negative (Negative); Specific Gravity,Urine 1.026 (1.001-1.035); Urobilinogen,Urine <2.0 mg/dL (<2.0)
[2024-09-02] MEDS ORDERED: FUROSEMIDE 20 MG TAB PO PRN (20:51)
[2024-09-02] MEDS ORDERED: FLUOCINOLONE TOPICAL PRN (20:51)
[2024-09-02] MEDS ORDERED: [UNRECOGNIZED DRUG - OTHER] TOPICAL PRN (20:51)
[2024-09-02] MEDS ORDERED: INSULIN DETEMIR (LEVEMIR) 100 UNIT/ML SYR SQ PRN (20:51)
[2024-09-02] MEDS ORDERED: MAG HYDROX/AL HYDROX/SIMETH 30 ML CUP PO PRN (20:53)
[2024-09-02] MEDS ORDERED: NALOXONE 0.4 MG/ML 1 ML VIAL IV PRN (20:53)
[2024-09-02] MEDS ORDERED: ACETAMINOPHEN TAB 325 MG TAB PO PRN (20:53)
[2024-09-02] MEDS ORDERED: bisacodyL 5 MG TABLET.DR PO PRN (20:53)
[2024-09-02] MEDS ORDERED: CALCIUM CARBONATE 500 MG CHEWABLE PO PRN (20:53)
[2024-09-02 21:29] LABS: African American GFR (CKD) 87 (>60 ml/min/1.73 sqM); Anion Gap 8 mmol/L; Blood Urea Nitrogen 20 mg/dL (9-20); Calcium 8.5 mg/dL (8.4-10.2); Carbon Dioxide 26 mmol/L (22-30); Chloride 106 mmol/L (98-107); Glucose 132 mg/dL (74-99); Non-African American GFR(CKD) 76 (>60 ml/min/1.73 sqM); Potassium 4.4 mmol/L (3.5-5.1); Sodium 140 mmol/L (137-145)
[2024-09-02] MEDS: FAMOTIDINE 20 MG TAB PO SCH (21:35)
[2024-09-02] MEDS: metFORMIN 500 MG TAB PO SCH (21:35)
[2024-09-02] MEDS: carvediloL 3.125 MG TAB PO SCH (21:35)
[2024-09-02] MEDS: ATORVASTATIN 20 MG TAB PO SCH (21:35)
[2024-09-02] MEDS: VIT A,C & E-LUTEIN-MINERALS 1 EACH TAB PO SCH (22:07)
[2024-09-03] MEDS: LOSARTAN 25 MG TAB PO SCH (08:46)
[2024-09-03] MEDS: ASPIRIN 81 MG PO SCH (08:46)
[2024-09-03] MEDS: LIDOCAINE 4% PATCH TOPICAL SCH (08:46)
[2024-09-03] MEDS: FERROUS SULFATE 325 MG TAB PO SCH (08:46)
[2024-09-03] MEDS ORDERED: [UNRECOGNIZED DRUG - OTHER] PO SCH (09:00)
[2024-09-03] MEDS: KETOCONAZOLE 2% SHAMPOO 1 APPLIC/ML TOPICAL SCH (10:45)
[2024-09-03] MEDS: ZINC OXIDE PASTE (Z-GUARD) 1 APPLIC TOPICAL PRN (18:05)
[2024-09-03] MEDS: LOSARTAN 25 MG TAB PO STA (20:22)
[2024-09-03] MEDS: HEPARIN SODIUM,PORCINE 5,000 UNIT/ML 1 ML VIAL SQ SCH (20:22)
[2024-09-03] MEDS: CLOPIDOGREL 75 MG TAB PO SCH (20:22)
[2024-09-03 20:33] LABS: Glucose,Whole Blood 165 mg/dL (70-110)
[2024-09-04 05:31] LABS: Glucose,Whole Blood 88 mg/dL (70-110)
--- NOTE | 2024-09-04 07:00 | P.CONS ---
History of Present Illness - Reason for Consult Consult date: 09/03/24 Sepsis Requesting physician: Sunny Hernandez - Chief Complaint Mental status changes and weakness x 1 day - History of Present Illness Patient is a 83-year-old male with a past medical history significant for coronary artery disease diabetes mellitus DVT CVA TIA patient has been brought into the hospital for evaluation of mental status changes x 2 days as the patient was noted to be more sluggish than normal patient also noted to be diaphoretic and shaky for the patient has been brought into the hospital on arrival to the ER the patient was afebrile no fever have been recorded subsequently patient was not tachycardic hypotensive or hypoxic and no need for supplemental oxygen workup in the ER the patient did have white count of 12.1 with a left shift creatinine 0.94 electrolytes has been normal liver enzymes are normal influenza RSV COVID testing negative UA has been negative patient did have a chest x-ray mild pulm vascular congestion and trace effusion infectious disease was consulted because of his elevated white count concerning for sepsis patient at time of evaluation was sleepy but arousable patient denies having any headache or URI symptom has been complaining of feeling weak no energy and was also complaining of difficulty urination and burning Review of Systems Positive point and negatives has been mentioned in the HPI, complete review of systems was performed and all other systems are negative Past Medical History Past Medical History: Coronary Artery Disease (CAD), Cancer, CVA/TIA, Diabetes Mellitus, Deep Vein Thrombosis (DVT), Osteoarthritis (OA), Sleep Apnea/ CPAP/BIPAP Additional Past Medical History / Comment(s): hx basal cell skin cancer, bone spurs in lt shoulder History of Any Multi-Drug Resistant Organisms: None Reported Past Surgical History: Coronary Bypass/CABG, Orthopedic Surgery Additional Past Surgical History / Comment(s): Rotator Cuff Surgery. left foot surgery. bilateral cataract surgery. gum surgery. hx. of removal of 3 fungal toenails cabg sep 2018 Past Anesthesia/Blood Transfusion Reactions: No Reported Reaction Past Psychological History: No Psychological Hx Reported Smoking Status: Never smoker Past Alcohol Use History: None Reported Additional Past Alcohol Use History / Comment(s): smoker 20 years 1ppd quit age 50 Past Drug Use History: None Reported - Past Family History Mother Family Medical History: No Reported History Additional Family Medical History / Comment(s): Mother of a "blood clot" Father Family Medical History: Coronary Artery Disease (CAD) Medications and Allergies Home Medications Medication Instructions Recorded Confirmed Type Ferrous Sulfate [Iron (65 MG 325 mg PO DAILY 12/09/19 09/02/24 History Elemental)] metFORMIN HCL [Glucophage] 1,000 mg PO BID 12/09/19 09/02/24 History Aspirin EC [Ecotrin Low Dose] 81 mg PO DAILY 09/02/24 09/02/24 History Cystex Cranberry Supplements 1 cap PO DAILY 09/02/24 09/02/24 History Fluocinolone/Shower Cap 1 applic TOPICAL DAILY PRN 09/02/24 09/02/24 History [Fluocinolone 0.01% Scalp Oil] Furosemide [Lasix] 20 mg PO DAILY PRN 09/02/24 09/02/24 History Insulin Glargine [Lantus Vial] 3 unit SQ DAILY PRN 09/02/24 09/02/24 History Ketoconazole 2% Shampoo [Nizoral] 1 applic TOPICAL Q48H 09/02/24 09/02/24 History Lidocaine 5% Patch [Lidoderm] 1 patch TOPICAL DAILY 09/02/24 09/02/24 History Losartan [Cozaar] 25 mg PO DAILY 09/02/24 09/02/24 History Rosuvastatin [Crestor] 10 mg PO HS 09/02/24 09/02/24 History Vit C/E/Zn/Coppr/Lutein/Zeaxan 1 cap PO BID 09/02/24 09/02/24 History [Preservision Areds 2 Softgel] carvediloL [Coreg] 3.125 mg PO BID 09/02/24 09/02/24 History glipiZIDE XL [Glucotrol Xl] 5 mg PO AC-BRKFST 09/02/24 09/02/24 History Allergies Allergy/AdvReac Type Severity Reaction Status Date / Time codeine AdvReac Nausea & Verified 09/02/24 20:15 Vomiting Physical Exam Vitals: Vital Signs Temp Pulse Pulse Resp BP BP Pulse Ox 09/03/24 12:29 97.5 F L 59 L 16 187/67 96 09/03/24 10:40 97.6 F 60 16 161/60 98 09/03/24 06:00 55 L 16 143/59 97 09/03/24 04:00 98.4 F 58 L 16 132/49 95 09/03/24 02:00 64 16 134/52 94 L 09/03/24 00:00 65 18 134/52 95 09/02/24 21:37 85 20 154/62 96 09/02/24 19:21 70 20 176/65 98 09/02/24 19:09 71 18 176/65 97 09/02/24 18:30 71 14 168/64 98 09/02/24 17:27 98.7 F 77 20 167/71 94 L Intake and Output 09/03/24 09/03/24 09/03/24 06:59 14:59 22:59 Other: # Voids 2 Weight 60.781 kg GENERAL DESCRIPTION: Elderly male lying in bed, no distress. No tachypnea or accessory muscle of respiration use. HEENT: Shows Pallor , no scleral icterus. Oral mucous membrane is dry. No pharyngeal erythema or thrush NECK: Trachea central, no thyromegaly. LUNGS: Unlabored breathing. Clear to auscultation anteriorly. HEART: S1, S2, regular rate and rhythm. ABDOMEN: Soft, no tenderness , EXTREMITIES: No edema of feet. SKIN: No rash, no masses palpable. NEUROLOGICAL: The patient is sleepy but arousable, mood and affect normal. Results CBC & Chem 7: 09/02/24 18:00 09/02/24 20:53 Labs: Abnormal Lab Results - Last 24 Hours (Table) 09/02/24 09/02/24 09/02/24 Range/Units 18:00 18:00 20:53 WBC 12.1 H (3.8-10.6) k/uL RBC 3.87 L (4.30-5.90) m/uL Hgb 12.4 L (13.0-17.5) gm/dL Hct 37.3 L (39.0-53.0) % Neutrophils # 10.2 H (1.3-7.7) k/uL Potassium 5.5 H (3.5-5.1) mmol/L BUN 24 H (9-20) mg/dL Glucose 172 H 132 H (74-99) mg/dL Creatine Kinase 37 L (55-170) U/L Assessment and Plan (1) Leukocytosis Current Visit: Yes Status: Acute Code(s): D72.829 - ELEVATED WHITE BLOOD C ELL COUNT, UNSPECIFIED SNOMED Code(s): 738124221 (2) Generalized weakness Current Visit: Yes Status: Acute Code(s): R53.1 - WEAKNESS SNOMED Code(s): 82631510 Plan: 1patient presented to hospital with mental status changes weakness patient has been complaining of difficulty in burning of urination did have elevated white count concerning for possible urinary source however initial UA has been reported negative questionable laboratory. 2I will repeat his UA and culture and await for procalcitonin being monitored by admitting team. 3if positive UA or elevated procalcitonin will add Rocephin We will follow on clinical condition and cultures to further adjust medication if needed Thank you for this consultation we will follow the patient along with you Dictation was produced using [employer] dictation software. please excuse any grammatical, word or spelling errors. Time with Patient: Greater than 30
[2024-09-04] MEDS: LOSARTAN 50 MG TAB PO SCH (08:11)
[2024-09-04 09:53] LABS: HGB 11.4 g/dL (13.0-17.0); MCH 30.6 pg (27.0-32.0); MCHC 31.7 g/dL (32.0-37.0); MCV 96.8 FL (80.0-97.0); Mean Platelet Volume 9.3 FL (9.5-12.2); NRBC Per 100 WBC 0 X 10*3/uL (0.00-0.01); Platelet Count 176 X 10*3/uL (140-440); RBC 3.72 X 10*6/uL (4.40-5.60); RDW 13.5 % (11.5-14.5); WBC 6.84 X 10*3/uL (4.50-10.00)
[2024-09-04 09:54] LABS: Basophils # (A) 0.03 X 10*3/uL (0.00-0.10); Basophils % (A) 0.4 %; Eosinophils # (A) 0.32 X 10*3/uL (0.04-0.35); Eosinophils % (A) 4.7 %; Monocytes # (A) 0.55 X 10*3/uL (0.20-1.00); Neutrophils # (A) 4.63 X 10*3/uL (1.80-7.70); Neutrophils % (A) 67.8 %
[2024-09-04 10:00] LABS: BUN/Creat Ratio 22.67 Ratio (12.00-20.00); Blood Urea Nitrogen 20.4 mg/dL (9.0-27.0); Calcium 8.8 mg/dL (8.7-10.3); Carbon Dioxide 26.9 mmol/L (21.6-31.8); Chloride 106 mmol/L (96-109); Chol/HDL Ratio 2.01 Ratio; Glucose 86 mg/dL (70-110); LDL Cholesterol,Calculated 31.5 mg/dL (0.0-131.0); Potassium 4.7 mmol/L (3.5-5.5); Sodium 141 mmol/L (135-145); VLDL Calculation 10.68 mg/dL (5.00-40.00)
--- NOTE | 2024-09-04 10:15 | P.CNNES ---
History of Present Illness Consult date: 09/03/24 Requesting physician: Lakshmi Bruner Reason for Consult: Possible TIA History of Present Illness: Patient is a 83-year-old male came to the hospital yesterday at 5:22 PM for some neurological symptoms. Patient states that yesterday morning his symptoms started when he got up at 5:30 AM when he just did not feel right. He states that he did not feel sick, but "just was not there". He says that he was not walking. Patient states that he has 2 caretakers, and they were just picking him up and putting him in his 4 wheeled walker with seat. They were just rolling him from room to room in his walker as he could not get balance. They called his son and he asked them to take him to the hospital. The 2 caretakers brought him to the hospital. He states that he was breathing fine. Patient has history of CVA with left hemiplegia. He states he has history of strokes 5 times in the past since 2019. His at that time and he had a stroke. He had 4 more strokes after that. Denies any history of seizures. Patient states that yesterday his left leg would give out and he would tend to fall. His right arm would get sore from shoulder to the elbow. Denies any falls. Patient does not know the cause of his strokes in the past. He walks with walker all the time, except yesterday that he could not do. He states that day before yesterday he "was not too bad". Vital signs on arrival blood pressure 167/71, pulse of 77 temperature 98.7. Repeat blood pressure 168/64, then 176/65. Blood test shows WBC 12.1 hemoglobin 12.4 normal platelets. PT PTT normal, CMP normal. Troponin negative UA negative, influenza, RSV and coronavirus PCR negative. TSH normal 1.34. CK normal. EKG showed sinus rhythm. LVH chest x-ray showed mild pulm vascular congestion and trace effusion. CT head showed no acute intracranial process. I personally reviewed CT head from admission. There is mild generalized atrophy and some small vessel disease noted. Evidence of old lacunar stroke right basal ganglia. Also old lacunar stroke left anterior limb of internal capsule. Patient has history of diabetes, hypertension, denies any tobacco or alcohol use. He has history of bypass surgery. No history of seizures. Home medications include aspirin 81 mg, Crestor 10 mg, Lasix, insulin, losartan, glipizide, carvedilol, metformin and iron. Review of Systems All pertinent positive and negative use as mentioned in the HPI. Otherwise unremarkable. Past Medical History Past Medical History: Coronary Artery Disease (CAD), Cancer, CVA/TIA, Diabetes Mellitus, Deep Vein Thrombosis (DVT), Osteoarthritis (OA), Sleep Apnea/CPAP/BIPAP Additional Past Medical History / Comment(s): hx basal cell skin cancer, bone spurs in lt shoulder History of Any Multi-Drug Resistant Organisms: None Reported Past Surgical History: Coronary Bypass/CABG, Orthopedic Surgery Additional Past Surgical History / Comment(s): Rotator Cuff Surgery. left foot surgery. bilateral cataract surgery. gum surgery. hx. of removal of 3 fungal toenails cabg sep 2018 Past Anesthesia/Blood Transfusion Reactions: No Reported Reaction Past Psychological History: No Psychological Hx Reported Smoking Status: Never smoker Past Alcohol Use History: None Reported Additional Past Alcohol Use History / Comment(s): smoker 20 years 1ppd quit age 50 Past Drug Use History: None Reported - Past Family History Mother Family Medical History: No Reported History Additional Family Medical History / Comment(s): Mother of a "blood clot" Father Family Medical History: Coronary Artery Disease (CAD) Medications and Allergies Home Medications Medication Instructions Recorded Confirmed Type Ferrous Sulfate [Iron (65 MG 325 mg PO DAILY 12/09/19 09/02/24 History Elemental)] metFORMIN HCL [Glucophage] 1,000 mg PO BID 12/09/19 09/02/24 History Aspirin EC [Ecotrin Low Dose] 81 mg PO DAILY 09/02/24 09/02/24 History Cystex Cranberry Supplements 1 cap PO DAILY 09/02/24 09/02/24 History Fluocinolone/Shower Cap 1 applic TOPICAL DAILY PRN 09/02/24 09/02/24 History [Fluocinolone 0.01% Scalp Oil] Furosemide [Lasix] 20 mg PO DAILY PRN 09/02/24 09/02/24 History Insulin Glargine [Lantus Vial] 3 unit SQ DAILY PRN 09/02/24 09/02/24 History Ketoconazole 2% Shampoo [Nizoral] 1 applic TOPICAL Q48H 09/02/24 09/02/24 History Lidocaine 5% Patch [Lidoderm] 1 patch TOPICAL DAILY 09/02/24 09/02/24 History Losartan [Cozaar] 25 mg PO DAILY 09/02/24 09/02/24 History Rosuvastatin [Crestor] 10 mg PO HS 09/02/24 09/02/24 History Vit C/E/Zn/Coppr/Lutein/Zeaxan 1 cap PO BID 09/02/24 09/02/24 History [Preservision Areds 2 Softgel] carvediloL [Coreg] 3.125 mg PO BID 09/02/24 09/02/24 History glipiZIDE XL [Glucotrol Xl] 5 mg PO AC-BRKFST 09/02/24 09/02/24 History Allergies Allergy/AdvReac Type Severity Reaction Status Date / Time codeine AdvReac Nausea & Verified 09/02/24 20:15 Vomiting Physical Examination - Vital Signs Vital Signs: Vital Signs Temp Pulse Pulse Resp BP BP Pulse Ox 09/03/24 18:59 184/58 09/03/24 12:29 97.5 F L 59 L 16 187/67 96 09/03/24 10:40 97.6 F 60 16 161/60 98 09/03/24 06:00 55 L 16 143/59 97 09/03/24 04:00 98.4 F 58 L 16 132/49 95 09/03/24 02:00 64 16 134/52 94 L 09/03/24 00:00 65 18 134/52 95 09/02/24 21:37 85 20 154/62 96 09/02/24 19:21 70 20 176/65 98 Intake and Output 09/03/24 09/03/24 09/03/24 06:59 14:59 22:59 Other: # Voids 2 Weight 60.781 kg Patient is an elderly male, very pleasant, in no acute distress. Patient is alert awake oriented to time place and person. Speech and language functions are normal. Patient can name and repeat very well. No aphasia or dysarthria. Attention, concentration and fund of knowledge is adequate. On cranial nerve examination, pupils are equal, round and reacting to light, visual holloway are full on confrontation, with no neglect on double simultaneous stimulation. Extraocular muscles are intact with no nystagmus. He has left fac ial weakness, central type. His tongue protrudes to the midline. Palatal elevation and sensation normal, hearing and shoulder shrug normal, facial sensation normal. On muscle strength testing, patient is completely flaccid in the left upper extremity. In the left lower extremity, his hip flexion is about 3+ and ankle dorsiflexion 5. The strength is completely normal in the right upper and right lower extremities distally and proximally. Deep tendon reflexes are (right/left) biceps 0/0, brachioradialis 0/0, knees 1+/3, plantar is down on the right, up on the left. Sensory to touch is equal in both arms and both legs, with no neglect on double simultaneous stimulation. Cerebellar function showed no ataxia for [id number] testing on the right, cannot perform on the left. Tone is increased on the left side. Bulk of muscles decreased in the left upper limb because of disuse. Gait deferred. He does not have his walker. On general examination, there is no carotid bruit or murmur, S1-S2 audible. Chest is clear on consultation. Abdomen is soft nontender. No organomegaly, bowel sounds present. Peripheral pulses are present. No peripheral edema. Results - Laboratory Findings CBC and BMP: 09/02/24 18:00 09/02/24 20:53 Abnormal Lab Findings: Abnormal Labs 09/02/24 09/02/24 09/02/24 18:00 18:00 20:53 WBC 12.1 H RBC 3.87 L Hgb 12.4 L Hct 37.3 L Neutrophils # 10.2 H Potassium 5.5 H BUN 24 H Glucose 172 H 132 H Creatine Kinase 37 L Assessment and Plan Assessment: * Possible stroke/TIA, manifesting with worsening gait, tendency to fall. 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 Patient does walk with his walker. * History of recurrent stroke/TIA * Hypertension * Hyperlipidemia * Diabetes * CAD Plan: MRI of the brain without contrast, evaluate for acute CVA. Patient not a candidate for tPA, as came outside the window. 2-D echo with bubble study to rule out PFO CTA head and neck showed: No evidence of dissection of the cervical internal carotid arteries or vertebral arteries. Approximately 70 to 80% stenosis of the proximal left ICA due to mixed calcified carotid plaque. Approximately 60 to 70% stenosis of the proximal right ICA due to mixed calcified plaque. No evidence of intracranial high-grade stenosis or intracranial aneurysm. Consult vascular surgery for bilateral ICA stenosis. Fasting a.m. lipid panel with cholesterol 84, LDL 31, HDL 41, triglycerides 53. Continue Crestor 10 mg daily. Hemoglobin A1c 6.4, well-controlled. Permissive hypertension for next 24-48 hours Patient was on aspirin 81 mg daily. With bilateral ICA stenosis, we will start Plavix 75 mg daily along with aspirin. Neuro checks every 4 hours. Telemetry monitoring rule out any arrhythmia PT, OT, speech therapy DVT prophylaxis: Heparin 5000 units subcu every 12 hours Neurology will continue to follow. Thank you for the consult.
[2024-09-04 11:59] LABS: Appearance,Urine Clear (Clear); Bilirubin,Urine Negative (Negative); Blood,Urine Negative (Negative); Color,Urine Colorless; Glucose,Urine (UA) Negative (Negative); Ketones,Urine Negative (Negative); Leukocyte Esterase,Urine Negative (Negative); Nitrite,Urine Negative (Negative); Protein,Urine Negative (Negative); Specific Gravity,Urine 1.015 (1.001-1.035); Urobilinogen,Urine <2.0 mg/dL (<2.0)
[2024-09-04 12:04] LABS: Glucose,Whole Blood 136 mg/dL (70-110)
[2024-09-04] MEDS: amLODIPine 10 MG TAB PO SCH (12:27)
--- NOTE | 2024-09-04 14:46 | CA ---
Transthoracic Echo Report Name: Cornelius Levy Age: 83 Gender: M : 1940 Exam Date: 09/04/2024 13:02 Exam Location: [place] Echo Ht (in): 72 Wt (lb): 134 Ordering Physician: Jamie Simmons MD Attending/Referring Phys: Feed Crusher Nemo Benedict RDCS Procedure CPT: Indications: CVA Cardiac Hx: Technical Quality: Fair Contrast 1: Total Dose (mL): Contrast 2: Total Dose (mL): MEASUREMENTS (Male / Female) Normal Values 2D ECHO LV Diastolic Diameter PLAX 4.3 cm 4.2 - 5.9 / 3.9 - 5.3 cm LV Systolic Diameter PLAX 3.2 cm IVS Diastolic Thickness 1.3 cm 0.6 - 1.0 / 0.6 - 0.9 cm LVPW Diastolic Thickness 1.3 cm 0.6 - 1.0 / 0.6 - 0.9 cm LV Relative Wall Thickness 0.6 RV Internal Dim ED PLAX 2.9 cm LA Systolic Diameter LX 3.7 cm 3.0 - 4.0 / 2.7 - 3.8 cm LV Diastolic Volume MOD BP 99.5 cm??? 67 - 155 / 56 - 104 cm??? LV Systolic Volume MOD BP 38.5 cm??? 22 - 58 / 19 - 49 cm??? LV Ejection Fraction MOD BP 61.3 % >= 55 % LV Cardiac Index MOD BP 2205.8 cm???/min???m??? LV Diastolic Volume MOD 4C 110.5 cm??? LV Systolic Volume MOD 4C 48.1 cm??? LV Ejection Fraction MOD 4C 56.5 % LV Cardiac Index MOD 4C 2258.7 cm???/min???m??? LV Diastolic Length 4C 8.4 cm LV Systolic Length 4C 7.1 cm LV Diastolic Volume MOD 2C 85.7 cm??? LV Systolic Volume MOD 2C 32.0 cm??? LV Ejection Fraction MOD 2C 62.6 % LV Cardiac Index MOD 2C 1940.1 cm???/min???m??? LV Diastolic Length 2C 9.0 cm LV Systolic Length 2C 7.2 cm LA Volume 60.6 cm??? 18 - 58 / 22 - 52 cm??? LA Volume Index 34.8 cm???/m??? 16 - 28 cm???/m??? M-MODE Aortic Root Diameter MM 2.6 cm AV Cusp Separation MM 1.7 cm DOPPLER AV Peak Velocity 87.0 cm/s AV Peak Gradient 3.0 mmHg MV Area PHT 2.1 cm??? Mitral E Point Velocity 75.8 cm/s Mitral A Point Velocity 98.3 cm/s Mitral E to A Ratio 0.8 MV Deceleration Time 369.0 ms FINDINGS Left Ventricle Left ventricular ejection fraction is estimated at 55-60 %. Left ventricular cavity size normal. Mildly increased septal wall thickness. No obvious regional wall motion abnormalities. Right Ventricle Normal right ventricular size. Unable to estimate the right ventricular systolic pressure. Right Atrium Normal right atrial size. No right atrial thrombus or mass seen. Left Atrium Mildly increased left atrial volume. No left atrial thrombus or mass present. Mitral Valve Structurally normal mitral valve. Aortic Valve Trileaflet aortic valve. No aortic valve stenosis or regurgitation. Tricuspid Valve Structurally normal tricuspid valve. No tricuspid stenosis, regurgitation or prolapse. Pulmonic Valve Structurally normal pulmonic valve. Trace to mild pulmonic regurgitation. Pericardium No pericardial or pleural effusion. Aorta Normal size aortic root and proximal ascending aorta. CONCLUSIONS Normal LV function No intracardiac thrombus Previewed by: Dr. Temo Hood MD (Electronically Signed) Final Date: 04 September 2024 14:45
--- NOTE | 2024-09-04 16:07 | P.PN ---
Subjective Progress Note Date: 09/04/24 Principal diagnosis: Reason for follow-up is leukocytosis elevated procalcitonin Patient is a 83-year-old male with a past medical history significant for coronary artery disease diabetes mellitus DVT CVA TIA patient has been brought into the hospital for evaluation of mental status changes x 2 days before presented to the hospital patient also have a urinary symptoms initial UA was negative to have elevated white count probably this consultation. On today's evaluation that is 09/04/2024, Patient is afebrile patient is currently on room air and denies having any shortness of breath, the patient denies any chest pain or cough, the patient did not have any nausea vomiting or diarrhea. Patient white count normalized to 6.84 creatinine 0.9 procalcitonin 0.8 7 repeat UA currently pending Objective - Vital Signs Vital signs: Vital Signs Temp 97.4 F L 09/04/24 07:00 Pulse 68 09/04/24 07:00 Resp 15 09/04/24 07:00 BP 193/72 09/04/24 07:00 Pulse Ox 98 09/04/24 07:00 FiO2 Intake & Output 09/03/24 09/04/24 09/04/24 18:59 06:59 18:59 Output Total 1200 450 Balance -1200 -450 Weight 60.781 kg Output: Urine 1200 450 Other: # Voids 2 - Exam GENERAL DESCRIPTION: An elderly male lying in bed in no distress RESPIRATORY SYSTEM: Unlabored breathing , decreased breath sounds at bases HEART: S1 S2 regular rate and rhythm , ABDOMEN: Soft , no tenderness EXTREMITIES: No edema feet - Labs CBC & Chem 7: 09/04/24 05:22 09/04/24 05:22 Labs: Abnormal Lab Results - Last 24 Hours (Table) 09/03/24 09/03/24 09/04/24 Range/Units 17:53 20:31 05:22 RBC (4.40-5.60) X 10*6/uL Hgb (13.0-17.0) g/dL Hct (39.6-50.0) % MCHC (32.0-37.0) g/dL MPV (9.5-12.2) FL BUN/Creatinine Ratio (12.00-20.00) Ratio POC Glucose (mg/dL) 165 H (70-110) mg/dL Hemoglobin A1c 6.4 H (<=6.0) % Procalcitonin 0.87 H (0.02-0.50) ng/mL 09/04/24 09/04/24 Range/Units 05:22 05:22 RBC 3.72 L (4.40-5.60) X 10*6/uL Hgb 11.4 L (13.0-17.0) g/dL Hct 36.0 L (39.6-50.0) % MCHC 31.7 L (32.0-37.0) g/dL MPV 9.3 L (9.5-12.2) FL BUN/Creatinine Ratio 22.67 H (12.00-20.00) Ratio POC Glucose (mg/dL) (70-110) mg/dL Hemoglobin A1c (<=6.0) % Procalcitonin (0.02-0.50) ng/mL Assessment and Plan (1) Leukocytosis Current Visit: Yes Status: Acute Code(s): D72.829 - ELEVATED WHITE BLOOD CELL COUNT, UNSPECIFIED SNOMED Code(s): 865880528 (2) Generalized weakness Current Visit: Yes Status: Acute Code(s): R53.1 - WEAKNESS SNOMED Code(s): 68165552 Plan: 1patient presented to hospital with mental status changes weakness patient has been complaining of difficulty in burning of urination did have elevated white count concerning for possible urinary source however initial UA has been reported negative questionable laboratory. 2patient white count normalized however did have elevated procalcitonin Rocephin has been started this morning to continue await repeat UA and urine culture Dictation was produced using [employer] dictation software. please excuse any grammatical, word or spelling errors. Time with Patient: Less than 30
[2024-09-04 17:37] LABS: Glucose,Whole Blood 131 mg/dL (70-110)
[2024-09-04 20:26] LABS: Glucose,Whole Blood 207 mg/dL (70-110)
--- NOTE | 2024-09-04 22:12 | P.PN ---
Subjective Progress Note Date: 09/04/24 Patient was seen for a follow-up. Patient is laying comfortably in the bed. Offers no new complaints. Patient's son was also present by the bedside. Objective - Vital Signs Vital signs: Vital Signs Temp 97.4 F L 09/04/24 07:00 Pulse 68 09/04/24 07:00 Resp 15 09/04/24 07:00 BP 174/66 09/04/24 12:24 Pulse Ox 98 09/04/24 07:00 FiO2 Intake & Output 09/03/24 09/04/24 09/04/24 18:59 06:59 18:59 Output Total 1200 700 Balance -1200 -700 Weight 60.781 kg Output: Urine 1200 700 Other: # Voids 2 # Bowel Movements 1 - Exam Patient's mentation is normal. Examination remains unchanged. - Labs CBC & Chem 7: 09/04/24 05:22 09/04/24 05:22 Labs: Abnormal Lab Results - Last 24 Hours (Table) 09/03/24 09/03/24 09/04/24 Range/Units 17:53 20:31 05:22 RBC (4.40-5.60) X 10*6/uL Hgb (13.0-17.0) g/dL Hct (39.6-50.0) % MCHC (32.0-37.0) g/dL MPV (9.5-12.2) FL BUN/Creatinine Ratio (12.00-20.00) Ratio POC Glucose (mg/dL) 165 H (70-110) mg/dL Hemoglobin A1c 6.4 H (<=6.0) % Procalcitonin 0.87 H (0.02-0.50) ng/mL 09/04/24 09/04/24 09/04/24 Range/Units 05:22 05:22 12:03 RBC 3.72 L (4.40-5.60) X 10*6/uL Hgb 11.4 L (13.0-17.0) g/dL Hct 36.0 L (39.6-50.0) % MCHC 31.7 L (32.0-37.0) g/dL MPV 9.3 L (9.5-12.2) FL BUN/Creatinine Ratio 22.67 H (12.00-20.00) Ratio POC Glucose (mg/dL) 136 H (70-110) mg/dL Hemoglobin A1c (<=6.0) % Procalcitonin (0.02-0.50) ng/mL Assessment and Plan Assessment: * Possible stroke/TIA, manifesting with worsening gait, tendency to fall. 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 Patient does walk with his walker. * History of recurrent stroke/TIA * Hypertension * Hyperlipidemia * Diabetes * CAD Plan: MRI of the brain without contrast, evaluate for acute CVA. Patient not a cand idate for tPA, as came outside the window. 2-D echo revealed normal LVEF 55 to 60%. No obvious regional wall motion abnormalities. Mildly increased left atrial volume. No left atrial thrombus or mass. No valvular abnormalities. CTA head and neck showed: No evidence of dissection of the cervical internal carotid arteries or vertebral arteries. Approximately 70 to 80% stenosis of the proximal left ICA due to mixed calcified carotid plaque. Approximately 60 to 70% stenosis of the proximal right ICA due to mixed calcified plaque. No evidence of intracranial high-grade stenosis or intracranial aneurysm. Consult vascular surgery for bilateral ICA stenosis. Fasting a.m. lipid panel with cholesterol 84, LDL 31, HDL 41, triglycerides 53. Continue Crestor 10 mg daily. Hemoglobin A1c 6.4, well-controlled. Optimize control of blood pressure. Avoid hypotension. Patient was on aspirin 81 mg daily. With bilateral ICA stenosis, we will start Plavix 75 mg daily along with aspirin. Neuro checks every 4 hours. Telemetry monitoring rule out any arrhythmia PT, OT, speech therapy DVT prophylaxis: Heparin 5000 units subcu every [address] Bernardo Mitchell to start neurology service in the morning.
[2024-09-05 05:33] LABS: Glucose,Whole Blood 117 mg/dL (70-110)
[2024-09-05 08:58] LABS: ALT 13 U/L (10-49); AST 14 U/L (14-35); Albumin 3.7 g/dL (3.8-4.9); Albumin/Globulin Ratio 0.97 Ratio (1.60-3.17); Alkaline Phosphatase 60 U/L (41-126); BUN/Creat Ratio 23.22 Ratio (12.00-20.00); Blood Urea Nitrogen 20.9 mg/dL (9.0-27.0); Carbon Dioxide 23.5 mmol/L (21.6-31.8); Chloride 106 mmol/L (96-109); Globulin 3.8 g/dL (1.6-3.3); Glucose 121 mg/dL (70-110); Potassium 4.6 mmol/L (3.5-5.5); Sodium 140 mmol/L (135-145); Total Bilirubin 0.3 mg/dL (0.3-1.2); Total Protein 7.5 g/dL (6.2-8.2)
--- NOTE | 2024-09-05 09:09 | HP ---
HISTORY AND PHYSICAL CHIEF COMPLAINT: Weakness and change in mental status. HISTORY OF PRESENT ILLNESS: An 83-year-old gentleman with a past medical history of left-sided hemiplegia, is complaining of change in mental status. The patient continues to be more weak than previously by the family and the patient was taken to [facility] for further evaluation and treatment. Initial stroke workup including CT of the brain showed no significant change. The patient unable to give a coherent history, mostly taken from discussion with the family. PAST MEDICAL HISTORY: Reviewed, history of CAD, history of DVT, history of diabetes mellitus, history of stroke, sleep apnea, CABG. Rest of the history and chart are also reviewed. HOME MEDICATIONS: Reviewed include Lantus dose and rest of medications noted. ALLERGIES: Codeine. FAMILY HISTORY: History of blood clot in the family. SOCIAL HISTORY: Remote history of smoking. REVIEW OF SYSTEMS: Could not be taken. PHYSICAL EXAM: VITAL SIGNS: Pulse 59, blood pressure 187/86, and respirations 16. HEENT: Conjunctivae normal. RESPIRATIONS: Breath sounds diminished at the bases, few scattered rhonchi and crackles. ABDOMEN: Soft, nontender. LEGS: No edema. NERVOUS SYSTEM: Left hemiplegia. LABORATORY DATA: WBC 10.1, potassium 3.5. Otherwise, chest x-ray reviewed personally showed no acute abnormality except mild pulmonary vascular congestion. Rest of the labs are noted. ASSESSMENT: 1. Change in mental status and weakness, rule out recurrent acute stroke. 2. History of previous stroke. 3. History of diabetes mellitus type 2. 4. History of DVT. 5. Elevated WBC. 6. History of basal cell cancer. 7. History of CAD, CABG. 8. Gait dysfunction. RECOMMENDATION: This is an 83-year-old gentleman who presented with multiple complex medical issues, we will monitor the patient closely, continue the current management and treatment. I recommend blood cultures as well as full neurological workup, neuro consultation, also recommend repeat labs and closely follow, COVID viral panel is negative. UA is unremarkable. Continue to monitor. Further recommendations to follow. We will obtain Infectious Disease evaluation to rule out the possibility of sepsis also. MMODL / IJN: [id number] /
[2024-09-05 09:19] LABS: Basophils # (A) 0.03 X 10*3/uL (0.00-0.10); Basophils % (A) 0.3 %; Eosinophils # (A) 0.38 X 10*3/uL (0.04-0.35); Eosinophils % (A) 4.4 %; HCT 38.4 % (39.6-50.0); HGB 12.3 g/dL (13.0-17.0); Lymphocytes # (A) 1.14 X 10*3/uL (0.90-5.00); Lymphocytes % (A) 13.2 %; MCH 30.8 pg (27.0-32.0); MCV 96.2 FL (80.0-97.0); Mean Platelet Volume 9.4 FL (9.5-12.2); Monocytes # (A) 0.71 X 10*3/uL (0.20-1.00); Monocytes % (A) 8.2 %; NRBC Per 100 WBC 0 X 10*3/uL (0.00-0.01); Neutrophils # (A) 6.32 X 10*3/uL (1.80-7.70); Neutrophils % (A) 73.4 %; Platelet Count 202 X 10*3/uL (140-440); RBC 3.99 X 10*6/uL (4.40-5.60); RDW 13.4 % (11.5-14.5); WBC 8.62 X 10*3/uL (4.50-10.00)
--- NOTE | 2024-09-05 10:32 | PN ---
PROGRESS NOTE DATE OF SERVICE: 09/04/2024 SUBJECTIVE: This is an 83-year-old gentleman, who was admitted with weakness, also elevated WBC, elevated procalcitonin also. The patient is on empiric antibiotics. No chest pain. No palpitation. PHYSICAL EXAMINATION: VITAL SIGNS: Pulse is 68, blood pressure is 193/72, respirations 15. CHEST: A few scattered rhonchi. CARDIOVASCULAR: S1, S2. ABDOMEN: Soft. NERVOUS SYSTEM: Diffusely weak. LABORATORY DATA: Reviewed. ASSESSMENT: 1. Weakness and elevated WBC, rule out sepsis, rule out UTI. 2. Possible acute TIA. 3. CAD. 5. Diabetes mellitus, type 2. 6. DVT. RECOMMENDATIONS: Recommend to continue current management and continue symptomatic treatment. Otherwise, I would recommend repeat UA. Follow the cultures. Empiric antibiotics. Closely follow with Dr. Beckett. Guarded prognosis. Further recommendations to follow. We will repeat a chest x-ray. MMODL / IJN: [id number] / MTDD
[2024-09-05 14:08] VITALS: BMI 18.1
--- NOTE | 2024-09-05 15:24 | P.GSCN ---
History of Present Illness Consult date: 09/05/24 Reason for Consult: Carotid stenosis, CVA History of present illness: 83-year-old gentleman with history of CVA, left-sided hemiplegia presented to the hospital yesterday after worsening neurologic symptoms and possible stroke. He states that he was not doing well yesterday and having difficult time walking. He states that his caretakers were picking him up and and he was unable to get his balance and felt as if his left leg was worse than it was previous. He states his left leg has been somewhat functional since his stroke but he was unable to move at all from his left lower extremity. He was seen previously in 2019 for multiple strokes which he states he has had 5. He has not been able to move his upper extremity since that time. According to his family he does have issues with walking and therefore has multiple caregivers at home and he walks with a walker. He denies any speech issues and according to his workup and family he was not having any speech issues at the time. He states he is able to move his left foot somewhat today which is slightly improved from yesterday. He denies any fevers, chills, chest pain or shortness of breath. Review of Systems All systems: negative (What is mentioned in the HPI and past medical history) Past Medical History Past Medical History: Coronary Artery Disease (CAD), Cancer, CVA/TIA, Diabetes Mellitus, Deep Vein Thrombosis (DVT), Osteoarthritis (OA), Sleep Apnea/CPAP/B IPAP Additional Past Medical History / Comment(s): hx basal cell skin cancer, bone spurs in lt shoulder History of Any Multi-Drug Resistant Organisms: None Reported Past Surgical History: Coronary Bypass/CABG, Orthopedic Surgery Additional Past Surgical History / Comment(s): Rotator Cuff Surgery. left foot surgery. bilateral cataract surgery. gum surgery. hx. of removal of 3 fungal toenails cabg sep 2018 Past Anesthesia/Blood Transfusion Reactions: No Reported Reaction Past Psychological History: No Psychological Hx Reported Smoking Status: Never smoker Past Alcohol Use History: None Reported Additional Past Alcohol Use History / Comment(s): smoker 20 years 1ppd quit age 50 Past Drug Use History: None Reported - Past Family History Mother Family Medical History: No Reported History Additional Family Medical History / Comment(s): Mother of a "blood clot" Father Family Medical History: Coronary Artery Disease (CAD) Medications and Allergies Home Medications Medication Instructions Recorded Confirmed Type Ferrous Sulfate [Iron (65 MG 325 mg PO DAILY 12/09/19 09/02/24 History Elemental)] metFORMIN HCL [Glucophage] 1,000 mg PO BID 12/09/19 09/02/24 History Aspirin EC [Ecotrin Low Dose] 81 mg PO DAILY 09/02/24 09/02/24 History Cystex Cranberry Supplements 1 cap PO DAILY 09/02/24 09/02/24 History Fluocinolone/Shower Cap 1 applic TOPICAL DAILY PRN 09/02/24 09/02/24 History [Fluocinolone 0.01% Scalp Oil] Furosemide [Lasix] 20 mg PO DAILY PRN 09/02/24 09/02/24 History Insulin Glargine [Lantus Vial] 3 unit SQ DAILY PRN 09/02/24 09/02/24 History Ketoconazole 2% Shampoo [Nizoral] 1 applic TOPICAL Q48H 09/02/24 09/02/24 History Lidocaine 5% Patch [Lidoderm] 1 patch TOPICAL DAILY 09/02/24 09/02/24 History Losartan [Cozaar] 25 mg PO DAILY 09/02/24 09/02/24 History Rosuvastatin [Crestor] 10 mg PO HS 09/02/24 09/02/24 History Vit C/E/Zn/Coppr/Lutein/Zeaxan 1 cap PO BID 09/02/24 09/02/24 History [Preservision Areds 2 Softgel] carvediloL [Coreg] 3.125 mg PO BID 09/02/24 09/02/24 History glipiZIDE XL [Glucotrol Xl] 5 mg PO AC-BRKFST 09/02/24 09/02/24 History Allergies Allergy/AdvReac Type Severity Reaction Status Date / Time codeine AdvReac Nausea & Verified 09/02/24 20:15 Vomiting Surgical - Exam Vital Signs Temp Pulse Resp BP Pulse Ox 98.7 F 77 20 167/71 94 L 09/02/24 17:27 09/02/24 17:27 09/02/24 17:27 09/02/24 17:27 09/02/24 17:27 Patient Seen Date: 09/05/24 Patient Seen Time: 13:50 - General well developed, well nourished, no distress - Eyes PERRL - ENT normal pinna, normal nares - Neck no masses - Respiratory normal expansion, normal respiratory effort - Cardiovascular Rhythm: regular - Abdomen Abdomen: soft, non tender - Psychiatric oriented to time, oriented to person, oriented to place, speech is normal Left upper extremity weakness, flaccidity noted. 0 out of 5 muscle strength. Left lower extremity weakness with hip flexion, knee flexion extension. Patient is able to dorsiflex and plantarflex foot. Sensory to touch is equal in both arms and both legs, with no neglect on double simultaneous stimulation. Palpable DP and PT pulse bilaterally Palpable radial pulses bilaterally Results CTA head neck demonstrates 70 to 80% stenosis of the left ICA and 60 to 70% right ICA - Labs 09/05/24 06:14 09/05/24 06:14 Abnormal Lab Results - Last 24 Hours (Table) 09/04/24 09/04/24 09/05/24 Range/Units 17:29 20:24 05:31 RBC (4.40-5.60) X 10*6/uL Hgb (13.0-17.0) g/dL Hct (39.6-50.0) % MPV (9.5-12.2) FL Eosinophils # (0.04-0.35) X 10*3/uL BUN/Creatinine Ratio (12.00-20.00) Ratio Glucose (70-110) mg/dL POC Glucose (mg/dL) 131 H 207 H 117 H (70-110) mg/dL Albumin (3.8-4.9) g/dL Globulin (1.6-3.3) g/dL Albumin/Globulin Ratio (1.60-3.17) Ratio 09/05/24 09/05/24 Range/Units 06:14 06:14 RBC 3.99 L (4.40-5.60) X 10*6/uL Hgb 12.3 L (13.0-17.0) g/dL Hct 38.4 L (39.6-50.0) % MPV 9.4 L (9.5-12.2) FL Eosinophils # 0.38 H (0.04-0.35) X 10*3/uL BUN/Creatinine Ratio 23.22 H (12.00-20.00) Ratio Glucose 121 H (70-110) mg/dL POC Glucose (mg/dL) (70-110) mg/dL Albumin 3.7 L (3.8-4.9) g/dL Globulin 3.8 H (1.6-3.3) g/dL Albumin/Globulin Ratio 0.97 L (1.60-3.17) Ratio Microbiology - Last 24 Hours (Table) 09/03/24 20:38 Urine Culture - Final Urine,Voided 09/03/24 17:56 Blood Culture - Preliminary Blood Diabetes panel 09/05/24 Range/Units 06:14 Sodium 140 (135-145) mmol/L Potassium 4.6 (3.5-5.5) mmol/L Chloride 106 (96-109) mmol/L Carbon Dioxide 23.5 (21.6-31.8) mmol/L BUN 20.9 (9.0-27.0) mg/dL Creatinine 0.9 (0.6-1.5) mg/dL Glucose 121 H (70-110) mg/dL Calcium 9.0 (8.7-10.3) mg/dL AST 14 (14-35) U/L ALT 13 (10-49) U/L Alkaline Phosphatase 60 (41-126) U/L Total Protein 7.5 (6.2-8.2) g/dL Albumin 3.7 L (3.8-4.9) g/dL Calcium panel 09/05/24 Range/Units 06:14 Calcium 9.0 (8.7-10.3) mg/dL Albumin 3.7 L (3.8-4.9) g/dL Pituitary panel 09/05/24 Range/Units 06:14 Sodium 140 (135-145) mmol/L Potassium 4.6 (3.5-5.5) mmol/L Chloride 106 (96-109) mmol/L Carbon Dioxide 23.5 (21.6-31.8) mmol/L BUN 20.9 (9.0-27.0) mg/dL Creatinine 0.9 (0.6-1.5) mg/dL Glucose 121 H (70-110) mg/dL Calcium 9.0 (8.7-10.3) mg/dL Adrenal panel 09/05/24 Range/Units 06:14 Sodium 140 (135-145) mmol/L Potassium 4.6 (3.5-5.5) mmol/L Chloride 106 (96-109) mmol/L Carbon Dioxide 23.5 (21.6-31.8) mmol/L BUN 20.9 (9.0-27.0) mg/dL Creatinine 0.9 (0.6-1.5) mg/dL Glucose 121 H (70-110) mg/dL Calcium 9.0 (8.7-10.3) mg/dL Total Bilirubin 0.3 (0.3-1.2) mg/dL AST 14 (14-35) U/L ALT 13 (10-49) U/L Alkaline Phosphatase 60 (41-126) U/L Total Protein 7.5 (6.2-8.2) g/dL Albumin 3.7 L (3.8-4.9) g/dL Assessment and Plan Assessment: Possible CVA, TIA Bilateral carotid artery stenosis History of CVA with left hemiparesis History of multiple strokes Hypertension Diabetes Coronary artery disease Plan: Reviewed CTA neck independently which does demonstrate some stenosis in the bilateral internal carotid arteries. Agree with MRI to evaluate for extent of CVA. Long discussion was had with the patient about possible intervention due to his carotid stenosis and therefore we will obtain a disc to review for possible TCAR and stenting versus carotid endarterectomy and patch angioplasty. Will await MRI results for further recommendations. Due to his previous history of stroke timing for any intervention if there is any intervention to be had can be done as an outpatient. Thank you for the consultation. We will continue to follow with you.
[2024-09-05 20:17] LABS: Glucose,Whole Blood 204 mg/dL (70-110)
--- NOTE | 2024-09-06 01:54 | PN ---
PROGRESS NOTE DATE OF SERVICE: 09/05/2024 SUBJECTIVE: This 83-year-old gentleman admitted with weakness and change in mental status, being evaluated for new stroke with MRI and Neurology. No chest pain. No palpitations. No fever. PHYSICAL EXAMINATION: VITAL SIGNS: Pulse is 64, blood pressure 158/69, respirations 16. CHEST: Clear to auscultation. ABDOMEN: Soft. NERVOUS SYSTEM: Diffusely weak. LABORATORY DATA: Reviewed. ASSESSMENT: 1. Change in mental status and weakness, rule out recurrent acute stroke. 2. History of previous stroke. 3. Diabetes mellitus type 2. 4. History of deep venous thrombosis. 5. Elevated WBC. 6. History of basal cell cancer. 7. Multiple complex medical issues. RECOMMENDATIONS: Recommended to continue current management and continue symptomatic treatment. Otherwise, closely follow with Neurology and PT and OT evaluation. Guarded prognosis. Further recommendations to follow. MMARMIDAL / IJN: [id number] /
[2024-09-06 06:01] LABS: Glucose,Whole Blood 162 mg/dL (70-110)
--- NOTE | 2024-09-06 11:07 | P.PN ---
Subjective Progress Note Date: 09/06/24 I am seeing the patient for the first time during this hospital admission. Patient has a history of stroke with residual left-sided weakness predominantly is significant weakness of the left upper compared to the lower and he was walking with a walker who presented to hospital because of worsening of weakness of the left lower extremity. Patient has symptomatic carotid stenosis over the right and significant left ICA stenosis as well. Objective - Vital Signs Vital signs: Vital Signs Temp 98.9 F 09/06/24 07:00 Pulse 68 09/06/24 07:00 Resp 15 09/06/24 07:00 BP 128/56 09/06/24 07:00 Pulse Ox 95 09/06/24 07:00 FiO2 Intake & Output 09/05/24 09/06/24 09/06/24 18:59 06:59 18:59 Intake Total 461 Output Total 700 400 Balance -239 -400 Weight 60.781 kg Intake: Oral 461 Output: Urine 700 400 Other: # Voids 1 # Bowel Movements 1 - Exam GENERAL: The patient is lying in bed and is not in acute distress. NEUROLOGICAL: Higher mental function: The patient is awake, alert, oriented to self, place and time. Patient is following commands. No aphasia and no neglect. Cranial nerves: The pupils are round, equal and reactive to light and accommodation. Visual holloway are full to confrontation throughout. Extraocular movement is intact no nystagmus is noted. Has left lower facial weakness. No dysarthria. Motor: The strength is left upper extremity is 0/5 (per patient is chronic). Left lower is 2/5. Right side is 5/5. . - Labs CBC & Chem 7: 09/05/24 06:14 09/05/24 06:14 Labs: Abnormal Lab Results - Last 24 Hours (Table) 09/05/24 09/06/24 Range/Units 20:15 05:59 POC Glucose (mg/dL) 204 H 162 H (70-110) mg/dL Microbiology - Last 24 Hours (Table) 09/03/24 17:56 Blood Culture - Preliminary Blood 09/03/24 20:38 Urine Culture - Final Urine,Voided Assessment and Plan Assessment: This is an 83-year-old gentleman with history of stroke with residual left hemiparesis involving predominantly the face and left upper extremity and some weakness over the left lower extremity and uses a walker who presented hospital because of worsening weakness of the left lower extremity. * Likely acute ischemic stroke (has worsening weakness of the left lower extremity). Etiology of stroke likely symptomatic right ICA stenosis. Right ICA stenosis of 60 to 70% on CT angiography. * So significant stenosis of the left ICA of 70 to 80% on CT angiography * History of CVA in 2019, with left hemiparesis mainly involving left facial brachial region. Patient does walk with his walker. * History of recurrent stroke/TIA * Hypertension * Hyperlipidemia * Diabetes * CAD Plan: MRI of the brain without contrast, evaluate for acute CVA. Patient not a candidate for tPA, as came outside the window. 2-D echo revealed normal LVEF 55 to 60%. No obvious regional wall motion abnormalities. Mildly increased left atrial volume. No left atrial thrombus or mass. No valvular abnormalities. CTA head and neck showed: No evidence of dissection of the cervical internal carotid arteries or vertebral arteries. Approximately 70 to 80% stenosis of the proximal left ICA due to mixed calcified carotid plaque. Approximately 60 to 70 % stenosis of the proximal right ICA due to mixed calcified plaque. No evidence of intracranial high-grade stenosis or intracranial aneurysm. Vascular surgery is consulted for bilateral ICA stenosis. Fasting a.m. lipid panel with cholesterol 84, LDL 31, HDL 41, triglycerides 53. Hemoglobin A1c 6.4, well-controlled. Optimize control of blood pressure. Avoid hypotension. Patient was on aspirin 81 mg daily. With bilateral ICA stenosis, we will start Plavix 75 mg daily along with aspirin. I increased Lipitor from 20mg qhs to 40mqhs because of carotid stenosis. Neuro checks every 4 hours. Telemetry monitoring rule out any arrhythmia PT, OT, speech therapy DVT prophylaxis: Heparin 5000 units subcu every 12 hours. Time with Patient: Less than 30
[2024-09-06 11:58] LABS: Glucose,Whole Blood 129 mg/dL (70-110)
--- NOTE | 2024-09-06 13:44 | MR ---
EXAMINATION TYPE: MR brain wo con DATE OF EXAM: 09/06/2024 1:24 PM COMPARISON: 12/10/2019 CLINICAL INDICATION: Male, 83 years old with history of stroke/tia, Stroke, TIA TECHNIQUE: Multiplanar, multiecho imaging on a 3.0 Luna magnet is performed through the brain. Stud y is performed within 24 hours of arrival to the hospital.Multiplanar, multiecho imaging on a 3.0 Tri la magnet is performed through the knee. IV Contrast: mL (None, if empty) FINDINGS: The craniovertebral junction is normal. The pituitary is normal. Optic chiasm is visualized and unr emarkable Diffusion-weighted imaging is performed. No abnormal hyperintensity is present to suggest an acute i ntracranial infarct or acute ischemic change. There may be an old lacunar infarct in the right. Trabe cular region extending into the external capsule basal ganglion There are scattered punctate areas of hyperintensity on T2 and Inversion Recovery weighted sequences which are non-specific but can be related to microvascular ischemic changes. Ventricles and sulci are prominent for the patient age. IMPRESSION: 1. No acute intracranial process. 2. Chronic appearing periventricular white matter ischemic type changes. An old right basal ganglion lacunar infarct may be present with extension to the right periventricular region [facility], , 09/06/2024 1:42 PM
--- NOTE | 2024-09-06 15:08 | P.PN ---
Subjective Progress Note Date: 09/05/24 Principal diagnosis: Reason for follow-up is leukocytosis elevated procalcitonin Patient is a 83-year-old male with a past medical history significant for coronary artery disease diabetes mellitus DVT CVA TIA patient has been brought into the hospital for evaluation of mental status changes x 2 days before presented to the hospital patient also have a urinary symptoms initial UA was negative to have elevated white count probably this consultation. On today's evaluation that is 09/05/2024, patient has been afebrile, patient is breathing comfortably and is currently on room air, patient denies having any significant cough no chest pain, patient denies nausea vomiting or diarrhea and no abdominal pain Patient white count is 8.62, creatinine 0.9 Objective - Vital Signs Vital signs: Vital Signs Temp 97.9 F 09/05/24 07:00 Pulse 64 09/05/24 07:00 Resp 16 09/05/24 07:00 BP 158/69 09/05/24 07:00 Pulse Ox 96 09/05/24 07:00 FiO2 Intake & Output 09/04/24 09/05/24 09/05/24 18:59 06:59 18:59 Intake Total 0 240 Output Total 1300 1100 450 Balance -1300 -1100 -210 Weight 60.781 kg Intake: Oral 0 240 Output: Urine 1300 1100 450 Other: # Voids 6 # Bowel Movements 1 - Exam GENERAL DESCRIPTION: An elderly male lying in bed in no distress RESPIRATORY SYSTEM: Unlabored breathing , decreased breath sounds at bases HEART: S1 S2 regular rate and rhythm , ABDOMEN: Soft , no tenderness EXTREMITIES: No edema feet - Labs CBC & Chem 7: 09/05/24 06:14 09/05/24 06:14 Labs: Abnormal Lab Results - Last 24 Hours (Table) 09/04/24 09/04/24 09/05/24 Range/Units 17:29 20:24 05:31 RBC (4.40-5.60) X 10*6/uL Hgb (13.0-17.0) g/dL Hct (39.6-50.0) % MPV (9.5-12.2) FL Eosinophils # (0.04-0.35) X 10*3/uL BUN/Creatinine Ratio (12.00-20.00) Ratio Glucose (70-110) mg/dL POC Glucose (mg/dL) 131 H 207 H 117 H (70-110) mg/dL Albumin (3.8-4.9) g/dL Globulin (1.6-3.3) g/dL Albumin/Globulin Ratio (1.60-3.17) Ratio 09/05/24 09/05/24 Range/Units 06:14 06:14 RBC 3.99 L (4.40-5.60) X 10*6/uL Hgb 12.3 L (13.0-17.0) g/dL Hct 38.4 L (39.6-50.0) % MPV 9.4 L (9.5-12.2) FL Eosinophils # 0.38 H (0.04-0.35) X 10*3/uL BUN/Creatinine Ratio 23.22 H (12.00-20.00) Ratio Glucose 121 H (70-110) mg/dL POC Glucose (mg/dL) (70-110) mg/dL Albumin 3.7 L (3.8-4.9) g/dL Globulin 3.8 H (1.6-3.3) g/dL Albumin/Globulin Ratio 0.97 L (1.60-3.17) Ratio Microbiology - Last 24 Hours (Table) 09/03/24 20:38 Urine Culture - Final Urine,Voided 09/03/24 17:56 Blood Culture - Preliminary Blood Assessment and Plan (1) Leukocytosis Current Visit: Yes Status: Acute Code(s): D72.829 - ELEVATED WHITE BLOOD CELL COUNT, UNSPECIFIED SNOMED Code(s): 284108563 (2) Generalized weakness Current Visit: Yes Status: Acute Code(s): R53.1 - WEAKNESS SNOMED Code(s): 75396216 Plan: 1patient presented to hospital with mental status changes weakness patient has been complaining of difficulty in burning of urination did have elevated white count concerning for possible urinary source however initial UA has been reported negative questionable laboratory. 2patient white count normalized however did have elevated procalcitonin, repeat UA has been negative patient seem to have some clinical improvement we will continue with Rocephin Dictation was produced using [employer] software. please excuse any grammatical, word or spelling errors. Time with Patient: Less than 30
--- NOTE | 2024-09-06 15:09 | P.PN ---
Subjective Progress Note Date: 09/06/24 Principal diagnosis: Reason for follow-up is leukocytosis elevated procalcitonin Patient is a 83-year-old male with a past medical history significant for coronary artery disease diabetes mellitus DVT CVA TIA patient has been brought into the hospital for evaluation of mental status changes x 2 days before presented to the hospital patient also have a urinary symptoms initial UA was negative to have elevated white count probably this consultation. On today's evaluation that is 09/06/2024, Patient is afebrile this morning patient denies having any chest pain shortness of breath or cough, the patient is currently on room air, patient denies any abdominal pain no diarrhea no nausea no vomiting, has been complaining of pain to the left foot today. No new lab has been obtained today blood and urine culture negative Objective - Vital Signs Vital signs: Vital Signs Temp 97.7 F 09/06/24 13:52 Pulse 72 09/06/24 13:52 Resp 16 09/06/24 13:52 BP 149/71 09/06/24 13:52 Pulse Ox 96 09/06/24 13:52 FiO2 Intake & Output 09/05/24 09/06/24 09/06/24 18:59 06:59 18:59 Intake Total 461 118 Output Total 700 400 Balance -239 -400 118 Weight 60.781 kg Intake: Oral 461 118 Output: Urine 700 400 Other: # Voids 1 250 # Bowel Movements 1 - Exam GENERAL DESCRIPTION: An elderly male lying in bed in no distress RESPIRATORY SYSTEM: Unlabored breathing , decreased breath sounds at bases HEART: S1 S2 regular rate and rhythm , ABDOMEN: Soft , no tenderness EXTREMITIES: No edema feet - Labs CBC & Chem 7: 09/05/24 06:14 09/05/24 06:14 Labs: Abnormal Lab Results - Last 24 Hours (Table) 09/05/24 09/06/24 09/06/24 Range/Units 20:15 05:59 11:57 POC Glucose (mg/dL) 204 H 162 H 129 H (70-110) mg/dL Microbiology - Last 24 Hours (Table) 09/03/24 17:56 Blood Culture - Preliminary Blood 09/03/24 20:38 Urine Culture - Final Urine,Voided Assessment and Plan (1) Leukocytosis Current Visit: Yes Status: Acute Code(s): D72.829 - ELEVATED WHITE BLOOD CELL COUNT, UNSPECIFIED SNOMED Code(s): 814655016 (2) Generalized weakness Current Visit: Yes Status: Acute Code(s): R53.1 - WEAKNESS SNOMED Code(s): 80396079 Plan: 1patient presented to hospital with mental status changes weakness patient has been complaining of difficulty in burning of urination did have elevated white count concerning for possible urinary source however initial UA has been reported negative questionable laboratory. 2patient white count normalized however did have elevated procalcitonin, repeat UA has been negative 3patient slowly clinical improving we will continue with Rocephin to finish 5- day course of therapy Dictation was produced using [employer] dictation software. please excuse any grammatical, word or spelling errors. Time with Patient: Less than 30
--- NOTE | 2024-09-06 16:02 | P.PN ---
Subjective This is a pleasant 83 years old male who presents because of right hemiparesis. He has multiple medical problems as below. Also patient was evaluated by neurologist, he underwent MRI of the brain showing no acute intracranial process but chronic periventricular white matter changes Workup showing bilateral internal carotid artery stenosis, therefore vascular surgery team was consulted who also recommended MRI of the brain. Patient also on ceftriaxone for his UTI. Currently patient is awake alert and oriented, he looks comfortable. He denies chest pain or dyspnea. No other complaint. He complains from chronic pain in his right foot. He has good appetite, start picking up. No vomiting, no diarrhea currently but he said recently had diarrhea on and off. He is currently placed on aspirin and Plavix. Objective - Vital Signs Vital signs: Vital Signs Temp 97.7 F 09/06/24 13:52 Pulse 72 09/06/24 13:52 Resp 16 09/06/24 13:52 BP 149/71 09/06/24 13:52 Pulse Ox 96 09/06/24 13:52 FiO2 Intake & Output 09/05/24 09/06/24 09/06/24 18:59 06:59 18:59 Intake Total 461 Output Total 700 400 Balance -239 -400 Weight 60.781 kg Intake: Oral 461 Output: Urine 700 400 Other: # Voids 1 250 # Bowel Movements 1 - Exam -GENERAL: The patient is alert and oriented x3, not in any acute distress. Well developed, well nourished. Generally weak HEENT: Pupils are round and equally reacting to light. EOMI. No scleral icterus. No conjunctival pallor. Normocephalic, atraumatic. No pharyngeal erythema. No thyromegaly. CARDIOVASCULAR: S1 and S2 present. No murmurs, rubs, or gallops. PULMONARY: Chest is clear to auscultation, no wheezing , no crackles. ABDOMEN: Soft, nontender, nondistended, normoactive bowel sounds. No palpable organomegaly. MUSCULOSKELETAL: No joint swelling or deformity. EXTREMITIES: No cyanosis, clubbing, or pedal edema. -NEUROLOGICAL: Gross neurological examination did not reveal any focal deficits. Right hemiparesis SKIN: No rashes. no petechiae. - Labs CBC & Chem 7: 09/05/24 06:14 09/05/24 06:14 Labs: Abnormal Lab Results - Last 24 Hours (Table) 09/05/24 09/06/24 09/06/24 Range/Units 20:15 05:59 11:57 POC Glucose (mg/dL) 204 H 162 H 129 H (70-110) mg/dL Microbiology - Last 24 Hours (Table) 09/03/24 17:56 Blood Culture - Preliminary Blood 09/03/24 20:38 Urine Culture - Final Urine,Voided Assessment and Plan Assessment: Altered mental status, most likely metabolic encephalopathy improved An abnormality gait and inability to walk with right side weakness, MRI of the brain is negative for stroke. Bilateral internal carotid artery stenosis, on the left side 70 to 80% on the right side 60 to 70% Acute urinary tract infection Diabetes mellitus Plan: Continue with dual antiplatelet therapy aspirin and Plavix MRI of the brain reviewed Neurology and vascular surgery consult on the case Continue ceftriaxone ID team consult Labs and medication were reviewed.. Continue same treatment. Continue with symptomatic treatment. Resume home medication. Monitor labs and vitals. DVT and GI prophylaxis. Further recommendations as per clinical course of the patient DVT prophylaxis: Subcutaneous heparin GI Prophylaxis: Pepcid Prognosis is guarded
[2024-09-06 17:33] LABS: Glucose,Whole Blood 163 mg/dL (70-110)
[2024-09-06 20:31] LABS: Glucose,Whole Blood 143 mg/dL (70-110)
[2024-09-06] MEDS: ATORVASTATIN 40 MG TAB PO SCH (20:31)
[2024-09-07] MEDS: FAMOTIDINE 20 MG TAB PO SCH (08:18)
[2024-09-07 12:07] LABS: Glucose,Whole Blood 187 mg/dL (70-110)
--- NOTE | 2024-09-07 15:18 | P.PN ---
Subjective Progress Note Date: 09/07/24 I am following up with the patient and he continues to have numbness of the left lower extremity and he states that not his baseline. He denies of any lower back pain. Objective - Vital Signs Vital signs: Vital Signs Temp 97.8 F 09/07/24 07:00 Pulse 69 09/07/24 07:00 Resp 18 09/07/24 14:00 BP 146/71 09/07/24 07:00 Pulse Ox 97 09/07/24 07:00 FiO2 Intake & Output 09/06/24 09/07/24 09/07/24 18:59 06:59 18:59 Intake Total 298 236 Output Total 950 200 Balance 298 -950 36 Intake: Oral 298 236 Output: Urine 950 200 Other: # Voids 250 2 # Bowel Movements 1 - Exam GENERAL: The patient is lying in bed and is not in acute distress. NEUROLOGICAL: Higher mental function: The patient is awake, alert, oriented to self, place and time. Patient is following commands. No aphasia and no neglect. Cranial nerves: The pupils are round, equal and reactive to light and accommodation. Visual holloway are full to confrontation throughout. Extraocular movement is intact no nystagmus is noted. Has left lower facial weakness. No d ysarthria. Motor: The strength is left upper extremity is 0/5 (per patient is chronic). Left lower is 2/5. Right side is 5/5. . - Labs CBC & Chem 7: 09/05/24 06:14 09/05/24 06:14 Labs: Abnormal Lab Results - Last 24 Hours (Table) 09/06/24 09/06/24 09/07/24 Range/Units 17:32 20:28 12:06 POC Glucose (mg/dL) 163 H 143 H 187 H (70-110) mg/dL Microbiology - Last 24 Hours (Table) 09/03/24 17:56 Blood Culture - Preliminary Blood Assessment and Plan Assessment: This is an 83-year-old gentleman with history of stroke with residual left hemiparesis involving predominantly the face and left upper extremity and some weakness over the left lower extremity and uses a walker who presented hospital because of worsening weakness of the left lower extremity. * Worsening worsening weakness of the left lower extremity and clinically appear due to acute to subacute ischemic stroke on MRI Brain no acute ischemia noted and unsure if small. Etiology of stroke likely symptomatic right ICA stenosis. Right ICA stenosis of 60 to 70% on CT angiography. Patient denies of back pain. * So significant stenosis of the left ICA of 70 to 80% on CT angiography * History of CVA in 2019, with left hemiparesis mainly involving left facial brachial region. Patient does walk with his walker. * History of recurrent stroke/TIA * Hypertension * Hyperlipidemia * Diabetes * CAD Plan: MRI of the brain: No acute intracranial process. Chronic appearing periventricular white matter ischemic type changes. An old right basal ganglia lacunar infarct may be present with extension to the right periventricular region. I will get CTthoracic and lumbar to rule out any other causes for his worsening weakness of the left lower. 2-D echo revealed normal LVEF 55 to 60%. No obvious regional wall motion abnormalities. Mildly increased left atrial volume. No left atrial thrombus or mass. No valvular abnormalities. CTA head and neck showed: No evidence of dissection of the cervical internal carotid arteries or vertebral arteries. Approximately 70 to 80% stenosis of the proximal left ICA due to mixed calcified carotid plaque. Approximately 60 to 70% stenosis of the proximal right ICA due to mixed calcified plaque. No e vidence of intracranial high-grade stenosis or intracranial aneurysm. Vascular surgery is consulted for bilateral ICA stenosis. Fasting a.m. lipid panel with cholesterol 84, LDL 31, HDL 41, triglycerides 53. Hemoglobin A1c 6.4, well-controlled. Optimize control of blood pressure. Avoid hypotension. Patient was on aspirin 81 mg daily. With bilateral ICA stenosis, we will start Plavix 75 mg daily along with aspirin. I increased Lipitor from 20mg qhs to 40mqhs because of carotid stenosis. Neuro checks every 4 hours. Telemetry monitoring rule out any arrhythmia PT, OT, speech therapy DVT prophylaxis: Heparin 5000 units subcu every 12 hours. Time with Patient: Less than 30
--- NOTE | 2024-09-07 15:50 | P.PN ---
Subjective This is a pleasant 83 years old male who presents because of right hemiparesis. He has multiple medical problems as below. Also patient was evaluated by neurologist, he underwent MRI of the brain showing no acute intracranial process but chronic periventricular white matter changes Workup showing bilateral internal carotid artery stenosis, therefore vascular surgery team was consulted who also recommended MRI of the brain. Patient also on ceftriaxone for his UTI. Currently patient is awake alert and oriented, he looks comfortable. He denies chest pain or dyspnea. No other complaint. He complains from chronic pain in his right foot. He has good appetite, start picking up. No vomiting, no diarrhea currently but he said recently had diarrhea on and off. He is currently placed on aspirin and Plavix. 09/07/24 Patient remains clinically the same He has significant right hemiparesis of all stroke MRI of the brain reviewed no acute stroke Currently on aspirin and Plavix per neurologist Vascular surgery on the case for his internal carotid artery stenosis and he needs to follow-up outpatient I talked to the patient today about going to subacute rehab per recommendation of PT and OT and he declines Possible discharge tomorrow No family at bedside Objective - Vital Signs Vital signs: Vital Signs Temp 98.1 F 09/07/24 15:00 Pulse 69 09/07/24 15:00 Resp 16 09/07/24 15:00 BP 111/53 09/07/24 15:00 Pulse Ox 96 09/07/24 15:00 FiO2 Intake & Output 09/06/24 09/07/24 09/07/24 18:59 06:59 18:59 Intake Total 298 236 Output Total 950 200 Balance 298 -950 36 Intake: Oral 298 236 Output: Urine 950 200 Other: # Voids 250 2 # Bowel Movements 1 - Exam -GENERAL: The patient is alert and oriented x3, not in any acute distress. Well developed, well nourished. Generally weak HEENT: Pupils are round and equally reacting to light. EOMI. No scleral icterus. No conjunctival pallor. Normocephalic, atraumatic. No pharyngeal erythema. No thyromegaly. CARDIOVASCULAR: S1 and S2 present. No murmurs, rubs, or gallops. PULMONARY: Chest is clear to auscultation, no wheezing , no crackles. ABDOMEN: Soft, nontender, nondistended, normoactive bowel sounds. No palpable organomegaly. MUSCULOSKELETAL: No joint swelling or deformity. EXTREMITIES: No cyanosis, clubbing, or pedal edema. -NEUROLOGICAL: Gross neurological examination did not reveal any focal deficits. Right hemiparesis SKIN: No rashes. no petechiae. - Labs CBC & Chem 7: 09/05/24 06:14 09/05/24 06:14 Labs: Abnormal Lab Results - Last 24 Hours (Table) 09/06/24 09/06/24 09/07/24 Range/Units 17:32 20:28 12:06 POC Glucose (mg/dL) 163 H 143 H 187 H (70-110) mg/dL Microbiology - Last 24 Hours (Table) 09/03/24 17:56 Blood Culture - Preliminary Blood Assessment and Plan Assessment: Altered mental status, most likely metabolic encephalopathy improved An abnormality gait and inability to walk with right side weakness, MRI of the brain is negative for stroke. Bilateral internal carotid artery stenosis, on the left side 70 to 80% on the right side 60 to 70% Acute urinary tract infection Diabetes mellitus Plan: Continue with dual antiplatelet therapy aspirin and Plavix MRI of the brain reviewed Neurology and vascular surgery consult on the case Continue ceftriaxone ID team consult Labs and medication were reviewed.. Continue same treatment. Continue with symptomatic treatment. Resume home medication. Monitor labs and vitals. DVT and GI prophylaxis. Further recommendations as per clinical course of the patient DVT prophylaxis: Subcutaneous heparin GI Prophylaxis: Pepcid Prognosis is guarded
[2024-09-07 17:03] LABS: Glucose,Whole Blood 189 mg/dL (70-110)
--- NOTE | 2024-09-07 19:06 | CT ---
EXAMINATION TYPE: CT thor lumbar spine wo con DATE OF EXAM: 09/07/2024 5:48 PM COMPARISON: Previous CT study 01/15/2024. CLINICAL INDICATION: Male, 83 years old with history of left lower extremty weakness.; left lower ext remty weakness. TECHNIQUE: Axial images of the thoracic and lumbar spine were obtained without contrast. Coronal and sagittal reformats were performed. 3-D reformats of the bones were created on a separate workstation and submitted for review. CT Contrast: CT DLP: 1445.9 mGycm, Automated exposure control for dose reduction was used. FINDINGS: Exam limited due to patient positioning/streak artifact from overlying extremities. Thoracic: Emphysematous changes throughout the visualized lungs. Stable 4 mm nodule in the left upper lobe. Muc ous plugging and lower lobe predominant atelectasis. Coronary artery calcifications. Previous CABG. Multilevel intervertebral disc space loss and diffuse anterior osteophyte formation. Multilevel facet arthropathy. No evidence of high-grade spinal canal or neural foraminal stenosis. Thoracic spine vertebral body he ights appear maintained. Lumbar: Alignment: There are 5 lumbar type vertebral bodies within normal alignment. No acute fracture or traumatic subluxation. Multilevel intervertebral disc space loss, most pronounce d at L4-5. Diffuse anterior ossified formation. Osseous structures demineralized. Large posterior dis c osteophyte complex at L4-L5 in combination with facet arthropathy, as moderate spinal canal stenosi s and moderate to severe bilateral neural foraminal narrowing. Mild bilateral neural foraminal narrow ing at L3-L4 and L5-S1. Partially visualized abdomen there is moderate diffuse colonic stool burden. Asymmetric atrophy of th e right kidney. Nonobstructing calculi in the left kidney. Cholelithiasis. IMPRESSION: 1. No acute fracture or traumatic subluxation of the thoracic or lumbar spine. 2. Osseous structures are diffusely demineralized. 3. Lumbosacral spine degenerative changes, most pronounced at L4-L5 where there is moderate spinal c anal stenosis and [id number] bilateral neural foraminal narrowing. 4. No evidence of high-grade spinal canal or neural foraminal stenosis in the thoracic spine. 5. Mucus plugging, bronchial wall thickening and lower lobe atelectasis. 6. Emphysema and stable left upper lobe for multiple pulmonary nodule. 7. Cholelithiasis and a left renal calculus. 8. Additional nonacute findings as above. [facility], , 09/07/2024 7:04 PM
[2024-09-07 20:23] LABS: Glucose,Whole Blood 172 mg/dL (70-110)
--- NOTE | 2024-09-07 22:18 | P.PN ---
Subjective Progress Note Date: 09/07/24 Principal diagnosis: Reason for follow-up is leukocytosis elevated procalcitonin Patient is a 83-year-old male with a past medical history significant for coronary artery disease diabetes mellitus DVT CVA TIA patient has been brought into the hospital for evaluation of mental status changes x 2 days before presented to the hospital patient also have a urinary symptoms initial UA was negative to have elevated white count probably this consultation. On today's evaluation that is 09/07/2024,the patient denies any fever or any chills, patient is breathing comfortably on room air, the patient denies chest pain shortness of breath and no significant cough, patient denies abdominal pain, no nausea vomiting or diarrhea.. No new lab has been obtained today Objective - Vital Signs Vital signs: Vital Signs Temp 98.1 F 09/07/24 15:00 Pulse 69 09/07/24 15:00 Resp 16 09/07/24 15:00 BP 111/53 09/07/24 15:00 Pulse Ox 96 09/07/24 15:00 FiO2 Intake & Output 09/06/24 09/07/24 09/07/24 18:59 06:59 18:59 Intake Total 298 236 Output Total 950 200 Balance 298 -950 36 Intake: Oral 298 236 Output: Urine 950 200 Other: # Voids 250 2 # Bowel Movements 1 - Exam GENERAL DESCRIPTION: An elderly male lying in bed in no distress RESPIRATORY SYSTEM: Unlabored breathing , decreased breath sounds at bases HEART: S1 S2 regular rate and rhythm , ABDOMEN: Soft , no tenderness EXTREMITIES: No edema feet - Labs CBC & Chem 7: 09/05/24 06:14 09/05/24 06:14 Labs: Abnormal Lab Results - Last 24 Hours (Table) 09/06/24 09/06/24 09/07/24 Range/Units 17:32 20:28 12:06 POC Glucose (mg/dL) 163 H 143 H 187 H (70-110) mg/dL Microbiology - Last 24 Hours (Table) 09/03/24 17:56 Blood Culture - Preliminary Blood Assessment and Plan (1) Leukocytosis Current Visit: Yes Status: Acute Code(s): D72.829 - ELEVATED WHITE BLOOD CELL COUNT, UNSPECIFIED SNOMED Code(s): 220345538 (2) Generalized weakness Current Visit: Yes Status: Acute Code(s): R53.1 - WEAKNESS SNOMED Code(s): 15556910 Plan: 1patient presented to hospital with mental status changes weakness patient has been complaining of difficulty in burning of urination did have elevated white count concerning for possible urinary source however initial UA has been reported negative questionable laboratory. 2patient white count normalized however did have elevated procalcitonin, repeat UA has been negative 3patient is slowly clinically improving plan is to continue with Rocephin to finish 5-day course of therapy Dictation was produced using [employer]. dictation software. please excuse any grammatical, word or spelling errors. Time with Patient: Less than 30
[2024-09-08 05:51] LABS: Glucose,Whole Blood 185 mg/dL (70-110)
[2024-09-08 12:38] LABS: Glucose,Whole Blood 109 mg/dL (70-110)
--- NOTE | 2024-09-08 13:18 | P.PN ---
Subjective This is a pleasant 83 years old male who presents because of right hemiparesis. He has multiple medical problems as below. Also patient was evaluated by neurologist, he underwent MRI of the brain showing no acute intracranial process but chronic periventricular white matter changes Workup showing bilateral internal carotid artery stenosis, therefore vascular surgery team was consulted who also recommended MRI of the brain. Patient also on ceftriaxone for his UTI. Currently patient is awake alert and oriented, he looks comfortable. He denies chest pain or dyspnea. No other complaint. He complains from chronic pain in his right foot. He has good appetite, start picking up. No vomiting, no diarrhea currently but he said recently had diarrhea on and off. He is currently placed on aspirin and Plavix. 09/07/24 Patient remains clinically the same He has significant right hemiparesis of all stroke MRI of the brain reviewed no acute stroke Currently on aspirin and Plavix per neurologist Vascular surgery on the case for his internal carotid artery stenosis and he needs to follow-up outpatient I talked to the patient today about going to subacute rehab per recommendation of PT and OT and he declines Possible discharge tomorrow No family at bedside 09/08 Patient presents because of left side weakness. MRI of the brain was negative for acute infarction Yesterday after rounding CT of the Thoracolumbar spine without contrast ordered by neurologist showing no acute fracture or subluxation.. There is extensive d egenerative disc disease. Most pronounced at L4-L5 where there is moderate spinal stenosis and moderate to severe bilateral neural foraminal narrowing. There is no evidence of high-grade spinal canal or neural foraminal stenosis in the thoracic spine Patient clinically the same and he was looking to be discharge However because of his abnormal spine CT we will going to consult orthopedic team. Objective - Vital Signs Vital signs: Vital Signs Temp 98.1 F 09/08/24 07:00 Pulse 67 09/08/24 07:00 Resp 16 09/08/24 07:00 BP 152/66 09/08/24 07:00 Pulse Ox 94 L 09/08/24 07:00 FiO2 Intake & Output 09/07/24 09/08/24 09/08/24 18:59 06:59 18:59 Intake Total 354 Output Total 200 250 Balance 154 -250 Intake: Oral 354 Output: Urine 200 250 Other: Voiding Method External Catheter # Voids 2 # Bowel Movements 0 - Exam -GENERAL: The patient is alert and oriented x3, not in any acute distress. Well developed, well nourished. Generally weak HEENT: Pupils are round and equally reacting to light. EOMI. No scleral icterus. No conjunctival pallor. Normocephalic, atraumatic. No pharyngeal erythema. No thyromegaly. CARDIOVASCULAR: S1 and S2 present. No murmurs, rubs, or gallops. PULMONARY: Chest is clear to auscultation, no wheezing , no crackles. ABDOMEN: Soft, nontender, nondistended, normoactive bowel sounds. No palpable organomegaly. MUSCULOSKELETAL: No joint swelling or deformity. EXTREMITIES: No cyanosis, clubbing, or pedal edema. -NEUROLOGICAL: Gross neurological examination did not reveal any focal deficits. Right hemiparesis SKIN: No rashes. no petechiae. - Labs CBC & Chem 7: 09/05/24 06:14 09/05/24 06:14 Labs: Abnormal Lab Results - Last 24 Hours (Table) 09/07/24 09/07/24 09/08/24 Range/Units 17:02 20:21 05:50 POC Glucose (mg/dL) 189 H 172 H 185 H (70-110) mg/dL Assessment and Plan Assessment: Altered mental status, most likely metabolic encephalopathy improved An abnormality gait and inability to walk with right side weakness, MRI of the brain is negative for stroke. Bilateral internal carotid artery stenosis, on the left side 70 to 80% on the right side 60 to 70% Acute urinary tract infection Diabetes mellitus is extensive degenerative disc disease. Most pronounced at L4-L5 where there is moderate spinal stenosis and moderate to severe bilateral neural foraminal narrowing Plan: Consult orthopedic team on-call Continue with dual antiplatelet therapy aspirin and Plavix MRI of the brain reviewed Neurology and vascular surgery consult on the case Continue ceftriaxone ID team consult Labs and medication were reviewed.. Continue same treatment. Continue with symptomatic treatment. Resume home medication. Monitor labs and vitals. DVT and GI prophylaxis. Further recommendations as per clinical course of the patient DVT prophylaxis: Subcutaneous heparin GI Prophylaxis: Pepcid Prognosis is guarded Case was discussed with the neurologist Plan of care discussed with the patient and he is agreeable.
--- NOTE | 2024-09-08 13:33 | P.PN ---
Subjective Progress Note Date: 09/08/24 Principal diagnosis: Reason for follow-up is leukocytosis elevated procalcitonin Patient is a 83-year-old male with a past medical history significant for coronary artery disease diabetes mellitus DVT CVA TIA patient has been brought into the hospital for evaluation of mental status changes x 2 days before presented to the hospital patient also have a urinary symptoms initial UA was negative to have elevated white count probably this consultation. On today's evaluation that is 09/08/2024,the patient remains to be afebrile, patient is on room air not requiring supplemental oxygen and denies any shortness of breath no chest pain or cough.Patient denies having any nausea or vomiting, no abdominal pain complaining of some diarrhea. No new lab has been obtained obtained today Objective - Vital Signs Vital signs: Vital Signs Temp 98.1 F 09/08/24 07:00 Pulse 67 09/08/24 07:00 Resp 16 09/08/24 07:00 BP 152/66 09/08/24 07:00 Pulse Ox 94 L 09/08/24 07:00 FiO2 Intake & Output 09/07/24 09/08/24 09/08/24 18:59 06:59 18:59 Intake Total 354 Output Total 200 250 Balance 154 -250 Intake: Oral 354 Output: Urine 200 250 Other: Voiding Method External Catheter # Voids 2 # Bowel Movements 0 - Exam GENERAL DESCRIPTION: An elderly male lying in bed in no distress RESPIRATORY SYSTEM: Unlabored breathing , decreased breath sounds at bases HEART: S1 S2 regular rate and rhythm , ABDOMEN: Soft , no tenderness EXTREMITIES: No edema feet - Labs CBC & Chem 7: 09/05/24 06:14 09/05/24 06:14 Labs: Abnormal Lab Results - Last 24 Hours (Table) 09/07/24 09/07/24 09/08/24 Range/Units 17:02 20:21 05:50 POC Glucose (mg/dL) 189 H 172 H 185 H (70-110) mg/dL Assessment and Plan (1) Leukocytosis Current Visit: Yes Status: Acute Code(s): D72.829 - ELEVATED WHITE BLOOD CELL COUNT, UNSPECIFIED SNOMED Code(s): 690966149 (2) Generalized weakness Current Visit: Yes Status: Acute Code(s): R53.1 - WEAKNESS SNOMED Code(s): 28498623 Plan: 1patient presented to hospital with mental status changes weakness patient has been complaining of difficulty in burning of urination did have elevated white count concerning for possible urinary source however initial UA has been reported negative questionable laboratory. 2patient white count normalized however did have elevated procalcitonin, repeat UA has been negative 3patient is slowly clinically improving patient has received a 5-day course of Rocephin we will go ahead and discontinue Rocephin 4patient complaining of some diarrhea possible antibiotic associated hopefully will improve after discussion of antibiotic if not I will order further workup Family at the bedside question answered Dictation was produced using [employer] dictation software. please excuse any grammatical, word or spelling errors. Time with Patient: Less than 30
--- NOTE | 2024-09-08 16:07 | P.PN ---
Subjective Progress Note Date: 09/08/24 I am following-up with patient and states he is about the same. Continues to have weakness over the left lower extremity. Objective - Vital Signs Vital signs: Vital Signs Temp 98.1 F 09/08/24 07:00 Pulse 67 09/08/24 14:00 Resp 16 09/08/24 14:00 BP 152/66 09/08/24 07:00 Pulse Ox 94 L 09/08/24 07:00 FiO2 Intake & Output 09/07/24 09/08/24 09/08/24 18:59 06:59 18:59 Intake Total 354 Output Total 200 250 500 Balance 154 -250 -500 Intake: Oral 354 Output: Urine 200 250 500 Other: Voiding Method External Catheter External Catheter # Voids 2 # Bowel Movements 0 - Exam GENERAL: The patient is lying in bed and is not in acute distress. NEUROLOGICAL: Higher mental function: The patient is awake, alert, oriented to self, place and time. Patient is following commands. No aphasia and no neglect. Cranial nerves: The pupils are round, equal and reactive to light and accommodation. Visual holloway are full to confrontation throughout. Extraocular movement is intact no nystagmus is noted. Has left lower facial weakness. No dysarthria. Motor: The strength is left upper extremity is 0/5 (per patient is chronic). Left lower is 2/5. Right side is 5/5. . - Labs CBC & Chem 7: 09/05/24 06:14 09/05/24 06:14 Labs: Abnormal Lab Results - Last 24 Hours (Table) 09/07/24 09/07/24 09/08/24 Range/Units 17:02 20:21 05:50 POC Glucose (mg/dL) 189 H 172 H 185 H (70-110) mg/dL Assessment and Plan Assessment: This is an 83-year-old gentleman with history of stroke with residual left lalo paresis involving predominantly the face and left upper extremity and some weakness over the left lower extremity and uses a walker who presented hospital because of worsening weakness of the left lower extremity. * Worsening worsening weakness of the left lower extremity and clinically appear due to acute to subacute ischemic stroke on MRI Brain no acute ischemia noted and unsure if small. Cannot rule out due to lumbarsevere stenosis over the L4/L5. Etiology of stroke likely symptomatic right ICA stenosis. Right ICA stenosis of 60 to 70% on CT angiography. Patient denies of back pain. * So significant stenosis of the left ICA of 70 to 80% on CT angiography * History of CVA in 2019, with left hemiparesis mainly involving left facial brachial region. Patient does walk with his walker. * History of recurrent stroke/TIA * Hypertension * Hyperlipidemia * Diabetes * CAD Plan: MRI of the brain: No acute intracranial process. Chronic appearing periventricular white matter ischemic type changes. An old right basal ganglia lacunar infarct may be present with extension to the right periventricular region. CT thoracic/lumbar: No acute fracture or traumatic subluxation of the thoracic or lumbar spine. Osseous structure are diffusely demineralized. Lumbosacral sp ine degenerative changes, most pronounced L4-L5 where there is moderate spinal canal stenosis and moderate to severe bilateral nerual foraminal narrowing Recommend consulting Orthopedic team because of severe stenosis of lumbar region and has weakness in leg. 2-D echo revealed normal LVEF 55 to 60%. No obvious regional wall motion abnormalities. Mildly increased left atrial volume. No left atrial thrombus or mass. No valvular abnormalities. CTA head and neck showed: No evidence of dissection of the cervical internal carotid arteries or vertebral arteries. Approximately 70 to 80% stenosis of the proximal left ICA due to mixed calcified carotid plaque. Approximately 60 to 70% stenosis of the proximal right ICA due to mixed calcified plaque. No evidence of intracranial high-grade stenosis or intracranial aneurysm. Vascular surgery is consulted for bilateral ICA stenosis. Fasting a.m. lipid panel with cholesterol 84, LDL 31, HDL 41, triglycerides 53. Hemoglobin A1c 6.4, well-controlled. Optimize control of blood pressure. Avoid hypotension. Patient was on aspirin 81 mg daily. With bilateral ICA stenosis, we will start Plavix 75 mg daily along with aspirin. I increased Lipitor from 20mg qhs to 40mqhs because of carotid stenosis. Neuro checks every 4 hours. Telemetry monitoring rule out any arrhythmia PT, OT, speech therapy DVT prophylaxis: Heparin 5000 units subcu every 12 hours. The plan is discussed with patient and primary team. Time with Patient: Less than 30
[2024-09-08 17:12] LABS: Glucose,Whole Blood 194 mg/dL (70-110)
[2024-09-08 19:50] VITALS: RESP 17
[2024-09-08 20:48] LABS: Glucose,Whole Blood 192 mg/dL (70-110)
[2024-09-09 06:03] LABS: Glucose,Whole Blood 106 mg/dL (70-110)
[2024-09-09 07:42] VITALS: BP 177/63; PULSE 61; TEMP 97.5
--- NOTE | 2024-09-09 10:52 | P.CNOR ---
History of Present Illness - [facility] Consult date: 09/09/24 Requesting physician: Richard E Sheet Consult reason: other (spinal disease with leg weakness) History of present illness: . Patient is an 83-year-old male who presented to the hospital on 09/02/2024 due to altered mental status from the prior 2 days. Patient does have a past medical history significant for CVA with residual left-sided deficits as well as a history of diabetes.. Patient has a history of strokes 5 times in the past since 2018. Orthopedics was consulted due to left lower extremity weakness. Patient was seen at bedside this morning on 6 N. lying the semirecumbent po sition. Patient states 2 days prior to coming the hospital he did begin to have some increasing numbness in the left lower extremity. Patient states he has had left lower extremity issues over the past several years however it seemed to have progressed more since prior to coming the hospital. Patient also notes some difficulty with urination. Patient states she does have a history of urinary hesitancy and sometimes incontinence. Patient does have caretakers we did bring him into the hospital. Patient states most of the numbness is present throughout the left lower extremity. Patient also mentions some sores on the back for which nursing had been keeping an eye on and monitoring. Patient denies any previous spine surgery. Patient denies any current chest pain, fever, nausea, vomiting, change in vision. Past Medical History Past Medical History: Coronary Artery Disease (CAD), Cancer, CVA/TIA, Diabetes Mellitus, Deep Vein Thrombosis (DVT), Osteoarthritis (OA), Sleep Apnea/CPAP/BIPAP Additional Past Medical History / Comment(s): hx basal cell skin cancer, bone spurs in lt shoulder History of Any Multi-Drug Resistant Organisms: None Reported Past Surgical History: Coronary Bypass/CABG, Orthopedic Surgery Additional Past Surgical History / Comment(s): Rotator Cuff Surgery. left foot surgery. bilateral cataract surgery. gum surgery. hx. of removal of 3 fungal toenails cabg sep 2018 Past Anesthesia/Blood Transfusion Reactions: No Reported Reaction Past Psychological History: No Psychological Hx Reported Smoking Status: Never smoker Past Alcohol Use History: None Reported Past Drug Use History: None Reported - Past Family History Mother Family Medical History: No Reported History Additional Family Medical History / Comment(s): Mother of a "blood clot" Father Family Medical History: Coronary Artery Disease (CAD) Medications and Allergies Home Medications Medication Instructions Recorded Confirmed Type Ferrous Sulfate [Iron (65 MG 325 mg PO DAILY 12/09/19 09/02/24 History Elemental)] metFORMIN HCL [Glucophage] 1,000 mg PO BID 12/09/19 09/02/24 History Aspirin EC [Ecotrin Low Dose] 81 mg PO DAILY 09/02/24 09/02/24 History Cystex Cranberry Supplements 1 cap PO DAILY 09/02/24 09/02/24 History Fluocinolone/Shower Cap 1 applic TOPICAL DAILY PRN 09/02/24 09/02/24 History [Fluocinolone 0.01% Scalp Oil] Furosemide [Lasix] 20 mg PO DAILY PRN 09/02/24 09/02/24 History Insulin Glargine [Lantus Vial] 3 unit SQ DAILY PRN 09/02/24 09/02/24 History Ketoconazole 2% Shampoo [Nizoral] 1 applic TOPICAL Q48H 09/02/24 09/02/24 History Lidocaine 5% Patch [Lidoderm] 1 patch TOPICAL DAILY 09/02/24 09/02/24 History Losartan [Cozaar] 25 mg PO DAILY 09/02/24 09/02/24 History Rosuvastatin [Crestor] 10 mg PO HS 09/02/24 09/02/24 History Vit C/E/Zn/Coppr/Lutein/Zeaxan 1 cap PO BID 09/02/24 09/02/24 History [Preservision Areds 2 Softgel] carvediloL [Coreg] 3.125 mg PO BID 09/02/24 09/02/24 History glipiZIDE XL [Glucotrol Xl] 5 mg PO AC-BRKFST 09/02/24 09/02/24 History Allergies Allergy/AdvReac Type Severity Reaction Status Date / Time codeine AdvReac Nausea & Verified 09/02/24 20:15 Vomiting Physical Examination Inspection: Some sores present to the back. left lateral malleolus present with some erythema as well as left heel Sensation: Equal, symmetric, bilateral intact throughout the bilateral lower extremities on exam. Sensation is intact to light touch throughout the right upper extremity on exam. Palpation: some generalized tenderness palpation present to the low back at midline. There is some generalized tenderness palpation over the left lateral malleolus present with some erythema. Nontender to palpation on rest of exam. Range of motion: Patient does have fairly good range of motion throughout bilateral lower extremities on exam and knee flexion/extension and hip flexion's extension. There is limited range of motion of the left ankle and dorsi/plantarflexion. Good range of motion throughout right upper extremity on exam. Left upper extremity limited range of motion due to previous strokes Motor: 4/5 in right upper and lower extremity on exam. 4-/5 in left lower extr emity on exam. Special tests: Negative clonus bilaterally. Negative Renea bilaterally. Negative Nelsy bilaterally. Neurovascular: Radial pulse intact. DP pulses palpable bilaterally. Results - Labs Labs: Abnormal Lab Results - Last 24 Hours (Table) 09/08/24 09/08/24 Range/Units 17:10 20:46 POC Glucose (mg/dL) 194 H 192 H (70-110) mg/dL Microbiology - Last 24 Hours (Table) 09/03/24 17:56 Blood Culture - Final Blood H & H 09/02/24 09/04/24 09/05/24 Range/Units 18:00 05:22 06:14 Hgb 12.4 L 11.4 L 12.3 L (13.0-17.5) gm/dL Hct 37.3 L 36.0 L 38.4 L (39.0-53.0) % Coagulation 09/02/24 Range/Units 18:00 INR 0.9 (<1.2) Result Diagrams: 09/05/24 06:14 09/05/24 06:14 - Diagnostic results CT Scan - lumbar: report reviewed, image reviewed (CT scan of the lumbar spine has been reviewed. There is some central canal stenosis and neuroforaminal stenosis on exam. There is evident degenerative disc disease and lumbar spondylosis throughout especially at L4/L5.) Assessment and Plan Assessment: 1. Left lower extremity weakness; lumbar spondylosis; degenerative disc dise ase; lumbar stenosis 2. History of multiple strokes Plan: 1. Left lower extremity weakness; lumbar spondylosis; degenerative disc disease; lumbar stenosis - CT scan of the lumbar spine has been reviewed. There is some central canal stenosis and neuroforaminal stenosis on lumbar spine CT. There is evident degenerative disc disease and lumbar spondylosis throughout especially at L4/L5. I did review the findings of the imaging and exam with my attending, Dr. Pollard. At this time we are not recommending any emergent/urgent orthopedic spine surgical intervention. We will order MRI of lumbar spine for further evaluation. At this time we recommend conservative measures. Patient would possibly benefit from steroids. PT/OT and pain medication as needed. We will await findings of lumbar spine MRI before proceeding with any other spine recommendations. 2. Appreciate medical, neuro management 3. Pain management - tylenol 4. DVT prophylaxis - plavix; aspirin; heaprin 5. GI prophylaxis - pepcid; tums; maalox 6. PT/OT -weightbearing as tolerated with walker and assistance 7. Encourage incentive spirometer use 8. Appreciate consult Time with Patient: Less than 30
[2024-09-09 12:17] LABS: Glucose,Whole Blood 88 mg/dL (70-110)
--- NOTE | 2024-09-09 15:18 | P.PN ---
Subjective Progress Note Date: 09/09/24 Principal diagnosis: Reason for follow-up is leukocytosis elevated procalcitonin Patient is a 83-year-old male with a past medical history significant for coronary artery disease diabetes mellitus DVT CVA TIA patient has been brought into the hospital for evaluation of mental status changes x 2 days before presented to the hospital patient also have a urinary symptoms initial UA was negative to have elevated white count probably this consultation. On today's evaluation that is 09/09/2024, the patient continues to be afebrile, the patient is on room air and breathing comfortably, the Pt denies having any chest pain or cough, the patient denies having any abdominal pain no vomiting or any diarrhea. No new lab obtained today blood urine culture negative Objective - Vital Signs Vital signs: Vital Signs Temp 97.5 F L 09/09/24 07:00 Pulse 61 09/09/24 07:00 Resp 17 09/09/24 07:00 BP 177/63 09/09/24 07:00 Pulse Ox 98 09/09/24 07:00 FiO2 Intake & Output 09/08/24 09/09/24 09/09/24 18:59 06:59 18:59 Intake Total 240 118 Output Total 850 750 150 Balance -610 -750 -32 Intake: Oral 240 118 Output: Urine 850 750 150 Other: Voiding Method External Catheter External Catheter External Catheter - Exam GENERAL DESCRIPTION: An elderly male lying in bed in no distress RESPIRATORY SYSTEM: Unlabored breathing , decreased breath sounds at bases HEART: S1 S2 regular rate and rhythm , ABDOMEN: Soft , no tenderness EXTREMITIES: No edema feet - Labs CBC & Chem 7: 09/05/24 06:14 09/05/24 06:14 Labs: Abnormal Lab Results - Last 24 Hours (Table) 09/08/24 09/08/24 Range/Units 17:10 20:46 POC Glucose (mg/dL) 194 H 192 H (70-110) mg/dL Microbiology - Last 24 Hours (Table) 09/03/24 17:56 Blood Culture - Final Blood Assessment and Plan (1) Leukocytosis Current Visit: Yes Status: Acute Code(s): D72.829 - ELEVATED WHITE BLOOD CELL COUNT, UNSPECIFIED SNOMED Code(s): 915964931 (2) Generalized weakness Current Visit: Yes Status: Acute Code(s): R53.1 - WEAKNESS SNOMED Code(s): 24375799 Plan: 1patient presented to hospital with mental status changes weakness patient has been complaining of difficulty in burning of urination did have elevated white count concerning for possible urinary source however initial UA has been reported negative questionable laboratory. 2patient white count normalized however did have elevated procalcitonin, repeat UA has been negative 3patient has received a 5-day course of Rocephin and is currently being monitored closely off antibiotic therapy 4patient is currently being evaluated by orthopedics for his lower extremity weakness MRI has been ordered Dictation was produced using [employer] dictation software. please excuse any grammatical, word or spelling errors. Time with Patient: Less than 30
--- NOTE | 2024-09-10 05:24 | P.DS ---
Providers Date of admission: 09/05/24 07:16 Attending physician: Clarissa Galan MD Consults: 09/02/24 20:53 Consult Physician Routine Consulting Provider: Jamie Simmons Consult Reason/Comments: Poss. TIA Do you want consulting provider notified?: Yes, Notify in am 09/03/24 16:12 Consult Physician Routine Consulting Provider: Lashawn Beckett Consult Reason/Comments: spsis Do you want consulting provider notified?: Yes 09/03/24 19:55 Consult Physician Routine Consulting Provider: Alka Burton Consult Reason/Comments: poss tia, b/l ica stenosis Do you want consulting provider notified?: Yes 09/09/24 08:29 Consult Physician Urgent Consulting Provider: Reinaldo Pollard Consult Reason/Comments: spinal disease with leg weakness Do you want consulting provider notified?: Yes Primary care physician: Ninoska Collado MD Hospital Course: Diagnoses: Altered mental status, most likely metabolic encephalopathy improved An abnormality gait and inability to walk with left side weakness, MRI of the brain is negative for stroke. Bilateral internal carotid artery stenosis, on the left side 70 to 80% on the right side 60 to 70% Acute urinary tract infection Diabetes mellitus is extensive degenerative disc disease. Most pronounced at L4-L5 where there is moderate spinal stenosis and moderate to severe bilateral neural foraminal narrowing Hospital course: This is a pleasant 83 years old male who presents because of left hemiparesis. He has multiple medical problems as below. Also patient was evaluated by neurologist, he underwent MRI of the brain showing no acute intracranial process but chronic periventricular white matter changes Workup showing bilateral internal carotid artery stenosis, therefore vascular surgery team was consulted who also recommended MRI of the brain. After the MRI was negative for acute stroke vascular surgery recommended follow-up as an outpatient to discuss possible stenting and endarterectomy of his carotid artery disease. Patient also on ceftriaxone for his UTI. Infectious disease team are on the case. Patient finishes IV antibiotics and he is remained stable while off antibiotics After workup was unremarkable neurology service requested CT of the spine which showing degenerative disc disease.Most pronounced at L4-L5 where there is moderate spinal stenosis and moderate to severe bilateral neural foraminal narrowing. There is no evidence of high-grade spinal canal or neural foraminal stenosis in the thoracic spine. Orthopedic team consult was obtained per recommendation of neurologist, eventually they evaluated the patient and they r ordered MRI of the lumbar spine with and without contrast. However bedside nurse today Jordana received a call from the orthopedic nurse myra that MRI can be done as an outpatient and hence he has been cleared for discharge. Discharge order already was placed. Patient today was fully awake at baseline, denying any new complaint, and was eager to go home. I talked to his son 2 days ago and he was agreed he needs to go home but then we waited for his orthopedic workup which is now deferred to outpatient. Patient was cleared for discharge by all consultants PT/OT recommended subacute rehab I discussed with the patient in length about this option he was adamant to go home with home care. Problems and management plan were discussed with the patient and he verbalized understanding and acceptance Patient was found stable and can be discharged home in guarded prognosis however he needs follow-up as an outpatient. Patient was instructed to follow up with PCP within one week and patient agrees Patient remains high risk for complication of admission given his age and severity of multiple medical problems Patient was instructed to follow-up with Dr. Pollard as an outpatient in 1 week, and to follow-up with Dr. Reyes in 1 week. Patient also was instructed to follow-up with neurologist in 1 to 2 weeks after discharge and he agrees Physical exam -Gen: patient is a AAOx3, no distress. Generally weak CVS: S1-S2, RRR, no murmur Lungs: B/L CTA, no wheezing Abdomen: soft, no distention, no tenderness, positive bowel sounds Extremity: no leg edema or induration Time spent more than 35 minutes Patient Condition at Discharge: Stable Plan - Discharge Summary Discharge Rx Participant: Yes New Discharge Prescriptions: New RX: Losartan [Cozaar] 50 mg PO DAILY #30 tab RX: Atorvastatin [Lipitor] 40 mg PO HS #30 tab RX: amLODIPine [Norvasc] 10 mg PO DAILY #30 tab RX: Famotidine [Pepcid] 20 mg PO DAILY 15 Days #15 tab RX: Clopidogrel [Plavix] 75 mg PO DAILY #30 tab Continue RX: Ferrous Sulfate [Iron (65 MG Elemental)] 325 mg PO DAILY RX: metFORMIN HCL [Glucophage] 1,000 mg PO BID Cystex Cranberry Supplements 1 cap PO DAILY RX: Lidocaine 5% Patch [Lidoderm 5% Patch] 1 patch TOPICAL DAILY RX: carvediloL [Coreg] 3.125 mg PO BID RX: Vit C/E/Zn/Coppr/Lutein/Zeaxan [Preservision Areds 2 Softgel] 1 cap PO BID RX: glipiZIDE XL [Glucotrol XL] 5 mg PO AC-BRKFST RX: Insulin Glargine [Lantus Vial] 3 unit SQ DAILY PRN PRN Reason: glucose >250 RX: Ketoconazole 2% Shampoo [Nizoral] 1 applic TOPICAL Q48H RX: Furosemide [Lasix] 20 mg PO DAILY PRN PRN Reason: Edema RX: Fluocinolone/Shower Cap [Fluocinolone 0.01% Scalp Oil] 1 applic TOPICAL DAILY PRN PRN Reason: flare ups RX: Aspirin EC [Ecotrin Low Dose] 81 mg PO DAILY #30 tab Discontinued Losartan [Cozaar] 25 mg PO DAILY Rosuvastatin [Crestor] 10 mg PO HS Discharge Medication List RX: Ferrous Sulfate [Iron (65 MG Elemental)] 325 mg PO DAILY 12/09/19 [History] RX: metFORMIN HCL [Glucophage] 1,000 mg PO BID 12/09/19 [History] Cystex Cranberry Supplements 1 cap PO DAILY 09/02/24 [History] RX: Fluocinolone/Shower Cap [Fluocinolone 0.01% Scalp Oil] 1 applic TOPICAL DAILY PRN 09/02/24 [History] RX: Furosemide [Lasix] 20 mg PO DAILY PRN 09/02/24 [History] RX: Insulin Glargine [Lantus Vial] 3 unit SQ DAILY PRN 09/02/24 [History] RX: Ketoconazole 2% Shampoo [Nizoral] 1 applic TOPICAL Q48H 09/02/24 [History] RX: Lidocaine 5% Patch [Lidoderm 5% Patch] 1 patch TOPICAL DAILY 09/02/24 [History] RX: Vit C/E/Zn/Coppr/Lutein/Zeaxan [Preservision Areds 2 Softgel] 1 cap PO BID 09/02/24 [History] RX: carvediloL [Coreg] 3.125 mg PO BID 09/02/24 [History] RX: glipiZIDE XL [Glucotrol XL] 5 mg PO AC-BRKFST 09/02/24 [History] RX: Aspirin EC [Ecotrin Low Dose] 81 mg PO DAILY #30 tab 09/09/24 [Rx] RX: Atorvastatin [Lipitor] 40 mg PO HS #30 tab 09/09/24 [Rx] RX: Clopidogrel [Plavix] 75 mg PO DAILY #30 tab 09/09/24 [Rx] RX: Famotidine [Pepcid] 20 mg PO DAILY 15 Days #15 tab 09/09/24 [Rx] RX: Losartan [Cozaar] 50 mg PO DAILY #30 tab 09/09/24 [Rx] RX: amLODIPine [Norvasc] 10 mg PO DAILY #30 tab 09/09/24 [Rx] Follow up Appointment(s)/Referral(s): Ninoska Collado MD [Primary Care Provider] - 1-2 days Venkat Reyes DO [STAFF PHYSICIAN] - 1 Week (Follow up for carotid artery ) [facility] [NON-STAFF] - As Needed Reinaldo Pollard DO [Doctor of Osteopathic Medicine] - 1 Week (Follow up for MRI) Patient Instructions/Handouts: Weakness (DC) Discharge Disposition: HOME SELF-CARE
== END 2024-09-09 17:34 | disposition home or self-care (01) | DRG 689 ==
LOC: EC 17:22 → 6NMEDSUR 20:56 → EEVIPCON 09-05 07:16 → OBSVTOIN 09-05 07:16
PROVIDERS: ADMIT Internal Medicine; ATTEND Internal Medicine
DX: N39.0 Urinary tract infection, site not specified (principal); G93.41 Metabolic encephalopathy; I69.354 Hemiplegia and hemiparesis following cerebral infarction affecting left non-dominant side; R26.2 Difficulty in walking, not elsewhere classified; I65.23 Occlusion and stenosis of bilateral carotid arteries; E11.9 Type 2 diabetes mellitus without complications; M48.061 Spinal stenosis, lumbar region without neurogenic claudication; I10 Essential (primary) hypertension; E78.5 Hyperlipidemia, unspecified; I25.10 Atherosclerotic heart disease of native coronary artery without angina pectoris; G89.29 Other chronic pain; M47.816 Spondylosis without myelopathy or radiculopathy, lumbar region; R53.1 Weakness; Z79.84 Long term (current) use of oral hypoglycemic drugs; Z79.82 Long term (current) use of aspirin; Z79.4 Long term (current) use of insulin; Z79.899 Other long term (current) drug therapy; Z88.5 Allergy status to narcotic agent; Z87.891 Personal history of nicotine dependence; Z86.718 Personal history of other venous thrombosis and embolism; Z85.828 Personal history of other malignant neoplasm of skin; Z95.1 Presence of aortocoronary bypass graft; Z79.02 Long term (current) use of antithrombotics/antiplatelets
CPT/HCPCS: 36415; 70450; 70496; 70498; 70551; 71046; 72128; 72131; 80048; 80053; 80061; 81003; 82550; 83036; 84145; 84443; 84484; 85025; 85610; 85730; 87040; 87086; 87636; 93005; 93306; 96360; 96361; 99285

== ENCOUNTER 2024-10-02 19:07 | Inpatient (IN) | payer MEDICARE, BC ==
--- NOTE | 2024-10-02 19:23 | ED ---
General Adult HPI - General Stated complaint: n/v/d fever Time Seen by Provider: 10/02/24 19:10 Source: patient, RN notes reviewed Mode of arrival: EMS Limitations: altered mental status - History of Present Illness Initial comments: 84-year-old male presents to the emergency department for evaluation of vomiting, abdominal pain, cough. He reports overall not feeling well. He reports having a fever today at home. He reports fever about a week ago but was doing well for a couple of days and started experiencing a fever again today. Patient had 2 of episodes of vomiting at home. He reports constipation unsure when his last bowel movement was. Endorses generalized abdominal discomfort. He does admit to coughing frequently. He also admits to a productive cough. - Related Data Home Medications Medication Instructions Recorded Confirmed Ferrous Sulfate [Iron (65 MG 325 mg PO DAILY 12/09/19 10/03/24 Elemental)] metFORMIN HCL [Glucophage] 1,000 mg PO BID-W/MEALS 12/09/19 10/03/24 Cystex Cranberry Supplements 1 cap PO DAILY 09/02/24 10/03/24 Fluocinolone/Shower Cap 1 applic TOPICAL DAILY PRN 09/02/24 10/03/24 [Fluocinolone 0.01% Scalp Oil] Furosemide [Lasix] 20 mg PO DAILY PRN 09/02/24 10/03/24 Insulin Glargine (Lantus) [Lantus 3 unit SQ DAILY PRN 09/02/24 10/03/24 Vial] Ketoconazole 2% Shampoo [Nizoral] 1 applic TOPICAL Q48H 09/02/24 10/03/24 Lidocaine 5% Patch [Lidoderm 5% 1 patch TOPICAL DAILY 09/02/24 10/03/24 Patch] Vit C/E/Zn/Coppr/Lutein/Zeaxan 1 cap PO BID 09/02/24 10/03/24 [Preservision Areds 2 Softgel] carvediloL [Coreg] 3.125 mg PO BID 09/02/24 10/03/24 glipiZIDE XL [Glucotrol XL] 5 mg PO AC-BRKFST 09/02/24 10/03/24 Previous Rx's Medication Instructions Recorded Aspirin EC [Ecotrin Low Dose] 81 mg PO DAILY #30 tab 09/09/24 Atorvastatin [Lipitor] 40 mg PO HS #30 tab 09/09/24 Clopidogrel [Plavix] 75 mg PO DAILY #30 tab 09/09/24 Famotidine [Pepcid] 20 mg PO DAILY 15 Days #15 tab 09/09/24 Losartan [Cozaar] 50 mg PO DAILY #30 tab 09/09/24 amLODIPine [Norvasc] 10 mg PO DAILY #30 tab 09/09/24 Allergies Allergy/AdvReac Type Severity Reaction Status Date / Time codeine AdvReac Nausea & Verified 10/03/24 09:56 Vomiting Review of Systems ROS Statement: Those systems with pertinent positive or pertinent negative responses have been documented in the HPI. ROS Other: All systems not noted in ROS Statement are negative. Past Medical History Past Medical History: Coronary Artery Disease (CAD), Cancer, CVA/TIA, Diabetes Mellitus, Deep Vein Thrombosis (DVT), Osteoarthritis (OA), Sleep Apnea/CPAP/BIPAP Additional Past Medical History / Comment(s): hx basal cell skin cancer, bone spurs in lt shoulder History of Any Multi-Drug Resistant Organisms: None Reported Past Surgical History: Coronary Bypass/CABG, Orthopedic Surgery Additional Past Surgical History / Comment(s): Rotator Cuff Surgery. left foot surgery. bilateral cataract surgery. gum surgery. hx. of removal of 3 fungal toenails cabg sep 2018 Past Anesthesia/Blood Transfusion Reactions: No Reported Reaction Past Psychological History: No Psychological Hx Reported Smoking Status: Never smoker Past Alcohol Use History: None Reported Additional Past Alcohol Use History / Comment(s): smoker 20 years 1ppd quit age 50 Past Drug Use History: None Reported - Past Family History Mother Family Medical History: No Reported History Additional Family Medical History / Comment(s): Mother of a "blood clot" Father Family Medical History: Coronary Artery Disease (CAD) General Exam Limitations: no limitations General appearance: alert, in no apparent distress Head exam: Present: atraumatic, normocephalic, normal inspection Eye exam: Present: normal appearance, PERRL, EOMI. Absent: scleral icterus, conjunctival injection, periorbital swelling ENT exam: Present: normal exam, mucous membranes moist Neck exam: Present: normal inspection. Absent: tenderness, meningismus, ly mphadenopathy Respiratory exam: Present: rhonchi. Absent: respiratory distress, wheezes, rales, stridor Cardiovascular Exam: Present: regular rate, normal rhythm, normal heart sounds. Absent: systolic murmur, diastolic murmur, rubs, gallop, clicks GI/Abdominal exam: Present: distended, tenderness. Absent: guarding, rebound, rigid Extremities exam: Present: normal inspection, full ROM, normal capillary refill. Absent: tenderness, pedal edema, joint swelling, calf tenderness Back exam: Present: normal inspection Neurological exam: Present: alert Psychiatric exam: Present: normal affect, normal mood Skin exam: Present: warm, dry, intact, normal color. Absent: rash Course Vital Signs 10/02/24 10/02/24 10/03/24 19:18 21:59 00:43 Temperature 97.6 F 98 F 98.7 F Pulse Rate 97 73 81 Respiratory 16 16 20 Rate Blood Pressure 132/58 108/58 130/64 Blood Pressure [Right Arm] O2 Sat by Pulse 96 94 L 87 L Oximetry 10/03/24 10/03/24 10/03/24 00:51 03:22 06:34 Temperature Pulse Rate 75 74 Respiratory 16 16 Rate Blood Pressure 128/52 130/49 Blood Pressure [Right Arm] O2 Sat by Pulse 91 L 96 93 L Oximetry 10/03/24 10/03/24 10/03/24 12:15 14:00 15:22 Temperature 98.9 F Pulse Rate 92 Respiratory 16 16 18 Rate Blood Pressure 160/71 Blood Pressure 136/45 141/53 [Right Arm] O2 Sat by Pulse 92 L 90 L 95 Oximetry Medical Decision Making - Medical Decision Making Was pt. sent in by a medical professional or institution (, PA, SHOE FOLDER, urgent care, hospital, or group home...) When possible be specific @ -No Did you speak to anyone other than the patient for history (EMS, parent, family, police, friend...)? What history was obtained from this source @ -EMS provided some history for this patient Did you review nursing and triage notes (agree or disagree)? Why? @ -I reviewed and agree with nursing and triage notes Were old charts reviewed (outside hosp., previous admission, EMS record, old EKG, old radiological studies, urgent care reports/EKG's, group home records)? Report findings @ -No old charts were reviewed Differential Diagnosis (chest pain, altered mental status, abdominal pain women, abdominal pain men, vaginal bleeding, weakness, fever, dyspnea, syncope, headache, dizziness, GI bleed, back pain, seizure, CVA, palpatations, mental health, musculoskeletal)? @ -Differential Abdominal Pain Men: Appendicitis, cholecystitis, diverticulosis, ischemic bowel, pancreatitis, hepatitis, UTI, gastroenteritis, AAA, incarcerated hernia, bowel obstruction, constipation, inflammatory bowel, hepatitis, peptic ulcer disease, splenic infarction, perforated viscus, testicular torsion, this is not meant to be an all-inclusive list EKG interpreted by me (3pts min.). @ -EKG at sinus rhythm rate of 85, OR 170, QRS 121, QT/QTc 375/417 X-rays interpreted by me (1pt min.). @ -None done CT interpreted by me (1pt min.). @ -None done U/S interpreted by me (1pt. min.). @ -None done What testing was considered but not performed or refused? (CT, X-rays, U/S, labs)? Why? @ -None What meds were considered but not given or refused? Why? @ -None Did you discuss the management of the patient with other professionals (professionals i.e. , PA, SHOE FOLDER, lab, RT, psych nurse, social service assistant, esters and emulsifiers supervisor, teacher, chief executive officer, upper caser)? Give summary @ -Management discussed with Dr. Costa who is accepting of admission Was smoking cessation discussed for >3mins.? @ -No Was critical care preformed (if so, how long)? @ -No Were there social determinants of health that impacted care today? How? (Homelessness, low income, unemployed, alcoholism, drug addiction, aponte sportation, low edu. Level, literacy, decrease access to med. care, alf, rehab)? @ -No Was there de-escalation of care discussed even if they declined (Discuss DNR or withdrawal of care, Hospice)? DNR status @ -No What co-morbidities impacted this encounter? (DM, HTN, Smoking, COPD, CAD, Cancer, CVA, ARF, Chemo, Hep., AIDS, mental health diagnosis, sleep apnea, morbid obesity)? @ -None Was patient admitted / discharged? Hospital course, mention meds given and route, prescriptions, significant lab abnormalities, going to OR and other pertinent info. @ -Admitted. Patient presented the emergency department for vomiting, cough, abdominal pain. Laboratory studies significant for leukocytosis at 14.5, hemoglobin 11.1; normal coagulation studies; CMP shows sodium 146, potassium 4.1, BUN 59, creatinine 1.58. Vital signs stable in the ED, patient afebrile. Patient is requiring supplemental oxygen and does not utilize oxygen at home. Chest x-ray obtained shows patchy interstitial opacities bilaterally which could reflect atypical infectious etiology or mild pulmonary venous congestion. CT abdomen pelvis was obtained revealing consolidative opacities in the lower lower lobes suspicious for aspiration pneumonia and wall thickening of the cecum and descending colon suggestive of infectious colitis. Patient will be admitted to the hospital for treatment of aspiration pneumonia. Patient was started on Rocephin, azithromycin, Flagyl. Case was discussed with Dr. Costa who is acce pting of the admission. Case discussed with Dr. Pedro Undiagnosed new problem with uncertain prognosis? @ -No Drug Therapy requiring intensive monitoring for toxicity (Heparin, Nitro, Insulin, Cardizem)? @ -No Were any procedures done? @ -No Diagnosis/symptom? @ -Aspiration pneumonia Acute, or Chronic, or Acute on Chronic? @ -Acute Uncomplicated (without systemic symptoms) or Complicated (systemic symptoms)? @ -Complicated Side effects of treatment? @ -No Exacerbation, Progression, or Severe Exacerbation? @ -No Poses a threat to life or bodily function? How? (Chest pain, [place], [place], pneumonia, PE, COPD, DKA, ARF, appy, cholecystitis, CVA, Diverticulitis, Homicidal, Suicidal, threat to staff... and all critical care pts) @ -No - Lab Data Result diagrams: 10/06/24 14:45 10/06/24 14:45 Lab Results 10/02/24 10/02/24 10/02/24 Range/Units 19:23 19:23 19:23 WBC 14.5 H (3.8-10.6) k/uL RBC 3.58 L (4.30-5.90) m/uL Hgb 11.1 L (13.0-17.5) gm/dL Hct 34.6 L (39.0-53.0) % MCV 96.6 (80.0-100.0) fL MCH 31.1 (25.0-35.0) pg MCHC 32.2 (31.0-37.0) g/dL RDW 13.3 (11.5-15.5) % Plt Count 255 (150-450) k/uL MPV 7.7 Neutrophils % 91 % Lymphocytes % 5 % Monocytes % 3 % Eosinophils % 0 % Basophils % 0 % Neutrophils # 13.2 H (1.3-7.7) k/uL Lymphocytes # 0.7 L (1.0-4.8) k/uL Monocytes # 0.5 (0-1.0) k/uL Eosinophils # 0.0 (0-0.7) k/uL Basophils # 0.0 (0-0.2) k/uL PT (10.0-12.5) sec INR (<1.2) APTT (22.0-30.0) sec Sodium 146 H (137-145) mmol/L Potassium 4.1 (3.5-5.1) mmol/L Chloride 109 H (98-107) mmol/L Carbon Dioxide 24 (22-30) mmol/L Anion Gap 13 mmol/L BUN 59 H (9-20) mg/dL Creatinine 1.58 H (0.66-1.25) mg/dL Est GFR (CKD-EPI)AfAm 47 (>60 ml/min/1.73 sqM) Est GFR (CKD-EPI)NonAf 40 (>60 ml/min/1.73 sqM) Glucose 247 H (74-99) mg/dL Plasma Lactic Acid Francisco Javier 1.8 (0.7-2.0) mmol/L Calcium 8.6 (8.4-10.2) mg/dL Total Bilirubin 0.5 (0.2-1.3) mg/dL AST 167 H (17-59) U/L ALT 139 H (4-49) U/L Alkaline Phosphatase 121 (38-126) U/L Total Protein 6.5 (6.3-8.2) g/dL Albumin 3.1 L (3.5-5.0) g/dL Amylase 80 (30-110) U/L Lipase 49 (23-300) U/L Influenza Type A (PCR) (Not Detectd) Influenza Type B (PCR) (Not Detectd) RSV (PCR) (Not Detectd) SARS-CoV-2 (PCR) (Not Detectd) 10/02/24 10/02/24 Range/Units 19:23 19:45 WBC (3.8-10.6) k/uL RBC (4.30-5.90) m/uL Hgb (13.0-17.5) gm/dL Hct (39.0-53.0) % MCV (80.0-100.0) fL MCH (25.0-35.0) pg MCHC (31.0-37.0) g/dL RDW (11.5-15.5) % Plt Count (150-450) k/uL MPV Neutrophils % % Lymphocytes % % Monocytes % % Eosinophils % % Basophils % % Neutrophils # (1.3-7.7) k/uL Lymphocytes # (1.0-4.8) k/uL Monocytes # (0-1.0) k/uL Eosinophils # (0-0.7) k/uL Basophils # (0-0.2) k/uL PT 11.0 (10.0-12.5) sec INR 1.0 (<1.2) APTT 23.4 (22.0-30.0) sec Sodium (137-145) mmol/L Potassium (3.5-5.1) mmol/L Chloride (98-107) mmol/L Carbon Dioxide (22-30) mmol/L Anion Gap mmol/L BUN (9-20) mg/dL Creatinine (0.66-1.25) mg/dL Est GFR (CKD-EPI)AfAm (>60 ml/min/1.73 sqM) Est GFR (CKD-EPI)NonAf (>60 ml/min/1.73 sqM) Glucose (74-99) mg/dL Plasma Lactic Acid Francisco Javier (0.7-2.0) mmol/L Calcium (8.4-10.2) mg/dL Total Bilirubin (0.2-1.3) mg/dL AST (17-59) U/L ALT (4-49) U/L Alkaline Phosphatase (38-126) U/L Total Protein (6.3-8.2) g/dL Albumin (3.5-5.0) g/dL Amylase (30-110) U/L Lipase (23-300) U/L Influenza Type A (PCR) Not Detected (Not Detectd) Influenza Type B (PCR) Not Detected (Not Detectd) RSV (PCR) Not Detected (Not Detectd) SARS-CoV-2 (PCR) Not Detected (Not Detectd) Disposition Clinical Impression: Aspiration pneumonia Disposition: ADMITTED IP TO THIS HOSP Condition: Stable Is patient prescribed a controlled substance at d/c from ED?: No
[2024-10-02] MEDS: SODIUM CHLORIDE 0.9% 500 ML 500 ML IV STA (19:37)
[2024-10-02 19:55] LABS: Basophils % (A) 0 %; Eosinophils % (A) 0 %; HCT 34.6 % (39.0-53.0); HGB 11.1 gm/dL (13.0-17.5); Lymphocytes # (A) 0.7 k/uL (1.0-4.8); Lymphocytes % (A) 5 %; MCH 31.1 pg (25.0-35.0); MCHC 32.2 g/dL (31.0-37.0); MCV 96.6 fL (80.0-100.0); Mean Platelet Volume 7.7; Monocytes # (A) 0.5 k/uL (0-1.0); Monocytes % (A) 3 %; Neutrophils # (A) 13.2 k/uL (1.3-7.7); Neutrophils % (A) 91 %; Platelet Count 255 k/uL (150-450); RBC 3.58 m/uL (4.30-5.90); RDW 13.3 % (11.5-15.5); WBC 14.5 k/uL (3.8-10.6)
--- NOTE | 2024-10-02 19:56 | XR ---
EXAMINATION TYPE: XR chest 2V DATE OF EXAM: 10/02/2024 7:52 PM COMPARISON: None available. CLINICAL INDICATION: Male, 83 years old with history of fever; [facility] TECHNIQUE: XR chest 2V Frontal and lateral views of the chest. FINDINGS: Cardiac silhouette is within normal limits for size. Median sternotomy wires. Patchy interstitial opacities bilaterally. No sizable pleural effusion. No pneumothorax. No acute osseous abnormality. IMPRESSION: Patchy interstitial opacities bilaterally which could reflect atypical infectious etiology or mild pu lmonary vascular congestion. Recommend clinical correlation. [facility], , 10/02/2024 7:54 PM
[2024-10-02 19:59] LABS: Partial Thromboplastin Time 23.4 sec (22.0-30.0)
[2024-10-02 20:26] LABS: ALT 139 U/L (4-49); AST 167 U/L (17-59); African American GFR (CKD) 47 (>60 ml/min/1.73 sqM); Albumin 3.1 g/dL (3.5-5.0); Alkaline Phosphatase 121 U/L (38-126); Amylase 80 U/L (30-110); Anion Gap 13 mmol/L; Blood Urea Nitrogen 59 mg/dL (9-20); Calcium 8.6 mg/dL (8.4-10.2); Carbon Dioxide 24 mmol/L (22-30); Chloride 109 mmol/L (98-107); Glucose 247 mg/dL (74-99); Lipase 49 U/L (23-300); Non-African American GFR(CKD) 40 (>60 ml/min/1.73 sqM); Potassium 4.1 mmol/L (3.5-5.1); Sodium 146 mmol/L (137-145); Total Bilirubin 0.5 mg/dL (0.2-1.3); Total Protein 6.5 g/dL (6.3-8.2)
[2024-10-02 20:56] LABS: Influenza A Not Detected (Not Detectd); Influenza B Not Detected (Not Detectd); RSV Not Detected (Not Detectd)
--- NOTE | 2024-10-02 22:24 | CT ---
EXAMINATION TYPE: CT abdomen pelvis wo con DATE OF EXAM: 10/02/2024 9:14 PM COMPARISON: Previous CT study 01/15/2024. CLINICAL INDICATION: Male, 83 years old with history of pain; FEVER/DIARRHEA TECHNIQUE: Axial CT abdomen pelvis wo con;Sagittal and coronal reformats were created on a separate workstation. Oral contrast used: without Oral Contrast (none if empty) CT DLP: 630.7 mGycm, Automated exposure control for dose reduction was used. FINDINGS: LOWER CHEST: Patchy lower lobe consolidative opacities and extensive mucous plugging suspicious for a spiration pneumonia. ABDOMEN LIVER: Unremarkable GALLBLADDER AND BILE DUCTS: Layering increased densities within the lumen consistent with gallstones are present. PANCREAS: Unremarkable. SPLEEN: Unremarkable. ADRENAL GLANDS: Unremarkable. KIDNEYS AND URETERS: No evidence of hydronephrosis or renal calculus. The ureters are unremarkable. PELVIS BLADDER: No evidence for wall thickening or mass given limitations of exam. REPRODUCTIVE: Unremarkable. ABDOMEN & PELVIS STOMACH AND BOWEL: Stomach and duodenum are unremarkable No evidence of bowel obstruction. Liquid sto ol throughout the rectosigmoid and descending colon. Wall thickening of the ascending colon and cecum with mild adjacent mesenteric inflammatory changes. PERITONEUM/RETROPERITONEUM: No evidence of pneumoperitoneum or free fluid. VASCULATURE: No evidence of aortic aneurysm. MUSCULOSKELETAL: No acute osseous abnormalities LYMPH NODES: No gross evidence for lymphadenopathy. SOFT TISSUE/ABDOMINAL WALL: Unremarkable IMPRESSION: 1. Patchy lower lobe consolidative opacities and extensive mucous plugging suspicious for aspiration pneumonia. 2. Wall thickening of the cecum and descending colon with mild adjacent mesenteric inflammation sugg estive of infectious colitis given the extent of liquid colonic stools/diarrhea. Recommend outpatient tract visualization/colonoscopy if not recently performed or as clinically warranted. 3. Additional nonacute findings as above. [facility], , 10/02/2024 10:21 PM
[2024-10-02] MEDS ORDERED: PNEUMONIA PROTOCOL UTILIZED 1 EACH MISC PO PRN (23:28)
[2024-10-03] MEDS: metroNIDAZOLE-NS PMX 500 MG in SALINE 1 100ML.BAG IVPB STA (01:12)
[2024-10-03 01:33] LABS: Appearance,Urine Cloudy (Clear); Bacteria,Urine Rare /hpf; Bilirubin,Urine Negative (Negative); Blood,Urine Negative (Negative); Budding Yeast,Urine Few /hpf; Color,Urine Yellow; Glucose,Urine (UA) Negative (Negative); Granular Casts,Urine 4 /lpf (0); Hyaline Casts,Urine 6 /lpf (0-2); Ketones,Urine Trace (Negative); Leukocyte Esterase,Urine Negative (Negative); Mucus,Urine Rare /hpf; Nitrite,Urine Negative (Negative); PH, Urine 5.5 (5.0-8.0); Protein,Urine 1+ (Negative); RBC,Urine 2 /hpf (0-5); Specific Gravity,Urine 1.019 (1.001-1.035); Urobilinogen,Urine <2.0 mg/dL (<2.0); WBC,Urine 7 /hpf (0-5)
[2024-10-03] MEDS: AZITHROMYCIN 500 MG in SODIUM CHLORIDE 0.9% 250 ML IVPB STA (02:19)
--- NOTE | 2024-10-03 05:35 | P.HPIM ---
History of Present Illness H&P Date: 10/03/24 Patient is a 83-year-old male with a PMH of CVA with residual left-sided deficits, type II DM, CAD status post stents, hypertension, hyperlipidemia, and history of DVT who had initially presented to the emergency room with complaints of nausea and multiple episodes of vomiting. At the time of interview, the patient was confused and could not recall why he was in the emergency room. The patient however had reported to the ER staff that he had been experiencing fever today and has been having a frequent cough. He had also reported a total of 2 episodes of vomiting nonbloody nonbilious earlier today. Patient denied experiencing chest discomfort, shortness of breath, headache, visual disturb ances. The patient did endorse that he had a CVA multiple years ago which was reviewed in the chart with resulting left-sided weakness. In the emergency room a CT abdomen and pelvis revealed patchy lower lobe consolidative opacities with extensive mucous plugging concerning for aspiration pneumonia along with findings consistent with infectious colitis. EKG revealed sinus rhythm at 85 bpm with findings of LVH with QTc 417 ms as reviewed by me. Laboratory evaluation was remarkable for leukocytosis of 14.5, hemoglobin 11.1, sodium 146, chloride 109, BUN 59, creatinine 1.58, glucose 247, lactic acid 1.8, AST 167, ALT 139, unremarkable UA, and viral respiratory panel negative. ED documentation reviewed and case discussed with ED provider. Review of systems: Pertinent positives and negatives as discussed in HPI, a complete review of systems was performed and all other systems are negative. Physical examination: Vital signs reviewed General: non toxic, no distress, appears at stated age, normal weight Derm: no unusual rashes/lesions, warm Head: atraumatic, normocephalic, symmetric Eyes: EOMI, no lid lag, anicteric sclera, pupils equal round reactive to light ENT: Nose and ears atraumatic Neck: No cervical lymphadenopathy, trachea midline, supple Mouth: no lip lesion, mucus membranes moist Cardiovascular: S1S2 reg, no murmur, positive dorsalis pedis pulse bilateral, no edema Lungs: Scattered coarse breath sounds, no rhonchi, no rales, no accessory muscle use Abdominal: soft, nontender to palpation, no guarding Ext: no gross muscle atrophy, no contractures Neuro: CN II-XI grossly intact, left upper and lower extremity strength 2 out of 5 with left-sided facial droop, R sided strength 5/5 Psych: Confused, oriented only to person and place, appropriate affect Assessment: Aspiration pneumonia in setting of CVA history with left-sided paresis and left facial droop Acute kidney injury Colitis Transaminitis Chronic conditions: Type II DM, CAD, hypertension, hyperlipidemia, history Imaging: In the emergency room a CT abdomen and pelvis revealed patchy lower lobe c onsolidative opacities with extensive mucous plugging concerning for aspiration pneumonia along with findings consistent with infectious colitis. EKG revealed sinus rhythm at 85 bpm with findings of LVH with QTc 417 ms as reviewed by me. Data Review: Laboratory evaluation was remarkable for leukocytosis of 14.5, hemoglobin 11.1, sodium 146, chloride 109, BUN 59, creatinine 1.58, glucose 247, lactic acid 1.8, AST 167, ALT 139, unremarkable UA, and viral respiratory panel negative. Plan: Continue patient on Unasyn Consult pulmonary and speech therapy Continue IV fluids with normal saline 100 mL/h Monitor CMP Follow-up sputum and blood cultures Resume home medications once reconciled NPO for now DVT prophylaxis: Lovenox subcu The patient is admitted with an anticipated greater than 2 midnight stay for evaluation of aspiration pneumonia CODE STATUS: Full Code Discussed with: Patient Anticipated discharge place: Home Past Medical History Past Medical History: Coronary Artery Disease (CAD), Cancer, CVA/TIA, Diabetes Mellitus, Deep Vein Thrombosis (DVT), Osteoarthritis (OA), Sleep Apnea/CPAP/BIPAP Additional Past Medical History / Comment(s): hx basal cell skin cancer, bone spurs in lt shoulder History of Any Multi-Drug Resistant Organisms: None Reported Past Surgical History: Coronary Bypass/CABG, Orthopedic Surgery Additional Past Surgical History / Comment(s): Rotator Cuff Surgery. left foot surgery. bilateral cataract surgery. gum surgery. hx. of removal of 3 fungal toenails cabg sep 2018 Past Anesthesia/Blood Transfusion Reactions: No Reported Reaction Past Psychological History: No Psychological Hx Reported Smoking Status: Never smoker Past Alcohol Use History: None Reported Additional Past Alcohol Use History / Comment(s): smoker 20 years 1ppd quit age 50 Past Drug Use History: None Reported - Past Family History Mother Family Medical History: No Reported History Additional Family Medical History / Comment(s): Mother of a "blood clot" Father Family Medical History: Coronary Artery Disease (CAD) Medications and Allergies Home Medications Medication Instructions Recorded Confirmed Type Ferrous Sulfate [Iron (65 MG 325 mg PO DAILY 12/09/19 09/02/24 History Elemental)] metFORMIN HCL [Glucophage] 1,000 mg PO BID 12/09/19 09/02/24 History Cystex Cranberry Supplements 1 cap PO DAILY 09/02/24 09/02/24 History Fluocinolone/Shower Cap 1 applic TOPICAL DAILY PRN 09/02/24 09/02/24 History [Fluocinolone 0.01% Scalp Oil] Furosemide [Lasix] 20 mg PO DAILY PRN 09/02/24 09/02/24 History Insulin Glargine (Lantus) [Lantus 3 unit SQ DAILY PRN 09/02/24 09/02/24 History Vial] Ketoconazole 2% Shampoo [Nizoral] 1 applic TOPICAL Q48H 09/02/24 09/02/24 History Lidocaine 5% Patch [Lidoderm 5% 1 patch TOPICAL DAILY 09/02/24 09/02/24 History Patch] Vit C/E/Zn/Coppr/Lutein/Zeaxan 1 cap PO BID 09/02/24 09/02/24 History [Preservision Areds 2 Softgel] carvediloL [Coreg] 3.125 mg PO BID 09/02/24 09/02/24 History glipiZIDE XL [Glucotrol XL] 5 mg PO AC-BRKFST 09/02/24 09/02/24 History Aspirin EC [Ecotrin Low Dose] 81 mg PO DAILY #30 tab 09/09/24 Rx Atorvastatin [Lipitor] 40 mg PO HS #30 tab 09/09/24 Rx Clopidogrel [Plavix] 75 mg PO DAILY #30 tab 09/09/24 Rx Famotidine [Pepcid] 20 mg PO DAILY 15 Days #15 tab 09/09/24 Rx Losartan [Cozaar] 50 mg PO DAILY #30 tab 09/09/24 Rx amLODIPine [Norvasc] 10 mg PO DAILY #30 tab 09/09/24 Rx Allergies Allergy/AdvReac Type Severity Reaction Status Date / Time codeine AdvReac Nausea & Verified 10/02/24 19:26 Vomiting Physical Exam Vitals: Vital Signs Temp Pulse Resp BP Pulse Ox 10/03/24 03:22 75 16 128/52 96 10/03/24 00:51 91 L 10/03/24 00:43 98.7 F 81 20 130/64 87 L 10/02/24 21:59 98 F 73 16 108/58 94 L 10/02/24 19:18 97.6 F 97 16 132/58 96 Intake and Output 10/02/24 10/02/24 10/03/24 14:59 22:59 06:59 Output Total 300 300 Balance -300 -300 Output: Urine 300 300 Other: Voiding Method Toilet Diaper Weight 60.781 kg Results CBC & Chem 7: 10/02/24 19:23 10/02/24 19:23 Labs: Abnormal Lab Results - Last 24 Hours (Table) 10/02/24 10/02/24 10/03/24 Range/Units 19:23 19:23 00:46 WBC 14.5 H (3.8-10.6) k/uL RBC 3.58 L (4.30-5.90) m/uL Hgb 11.1 L (13.0-17.5) gm/dL Hct 34.6 L (39.0-53.0) % Neutrophils # 13.2 H (1.3-7.7) k/uL Lymphocytes # 0.7 L (1.0-4.8) k/uL Sodium 146 H (137-145) mmol/L Chloride 109 H (98-107) mmol/L BUN 59 H (9-20) mg/dL Creatinine 1.58 H (0.66-1.25) mg/dL Glucose 247 H (74-99) mg/dL AST 167 H (17-59) U/L ALT 139 H (4-49) U/L Albumin 3.1 L (3.5-5.0) g/dL Urine Protein 1+ H (Negative) Urine Ketones Trace H (Negative) Urine WBC 7 H (0-5) /hpf Urine Bacteria Rare H (None) /hpf Hyaline Casts 6 H (0-2) /lpf Urine Mucus Rare H (None) /hpf Urine Yeast (Budding) Few H (None) /hpf
[2024-10-03] MEDS: SODIUM CHLORIDE 0.9% 1,000 ML IV SCH (06:37)
[2024-10-03 06:53] LABS: ALT 112 U/L (4-49); AST 100 U/L (17-59); African American GFR (CKD) 60 (>60 ml/min/1.73 sqM); Albumin/Globulin Ratio 0.9; Alkaline Phosphatase 107 U/L (38-126); Anion Gap 11 mmol/L; Blood Urea Nitrogen 61 mg/dL (9-20); Calcium 8.6 mg/dL (8.4-10.2); Carbon Dioxide 25 mmol/L (22-30); Chloride 111 mmol/L (98-107); Globulin 3.4 g/dL; Glucose 183 mg/dL (74-99); Non-African American GFR(CKD) 52 (>60 ml/min/1.73 sqM); Potassium 3.8 mmol/L (3.5-5.1); Sodium 147 mmol/L (137-145); Total Bilirubin 0.4 mg/dL (0.2-1.3); Total Protein 6.4 g/dL (6.3-8.2)
[2024-10-03 06:56] LABS: HCT 33.2 % (39.0-53.0); HGB 10.8 gm/dL (13.0-17.5); Hypochromasia Slight; MCH 32.4 pg (25.0-35.0); MCHC 32.6 g/dL (31.0-37.0); MCV 99.3 fL (80.0-100.0); Mean Platelet Volume 8.4; Platelet Count 252 k/uL (150-450); RBC 3.35 m/uL (4.30-5.90); RDW 13.5 % (11.5-15.5); WBC 7.9 k/uL (3.8-10.6)
--- NOTE | 2024-10-03 07:02 | XR ---
EXAMINATION TYPE: XR chest 1V portable DATE OF EXAM: 10/03/2024 4:53 AM COMPARISON: Chest radiographs from 10/02/2024 TECHNIQUE: XR chest 1V portable Portable AP radiograph of the chest. CLINICAL INDICATION:Male, 83 years old with history of pneumonia; FINDINGS: Lungs/Pleura: No pleural effusion or pneumothorax. Similar bibasilar patchy interstitial opacities. Heart/mediastinum: Cardiomediastinal silhouette is stable. Atherosclerotic calcifications are seen i n the aorta. Post-CABG changes Musculoskeletal: No acute osseous pathology. Midline sternotomy wires are noted and stable. IMPRESSION: Overall unchanged patchy interstitial bibasilar opacities which could reflect atypical infectious xavier ology or mild pulmonary vascular congestion. [facility], , 10/03/2024 7:00 AM
[2024-10-03] MEDS: AMPICILLIN-SULBACTAM 3 GM in SODIUM CHLORIDE 0.9% 100 ML IVPB SCH (08:11)
[2024-10-03] MEDS: ENOXAPARIN 40 MG/0.4 ML SYRINGE SQ SCH (08:12)
--- NOTE | 2024-10-03 08:52 | P.CNPUL ---
History of Present Illness Consult date: 10/03/24 Requesting physician: Deb Costa Reason for consult: pneumonia Chief complaint: Nausea and vomiting History of present illness: Patient is an 83-year-old male with past medical history significant for hypertension, hyperlipidemia, diabetes mellitus, DVT, coronary artery disease status post two-vessel CABG, CVA with residual left-sided hemiparesis. Patient reportedly brought into the emergency department last night with chief complaint of abdominal pain and intermittent episodes of nausea/vomiting. Patient is a poor historian, he believes he is at home and the year is 1974. I am unsure of his baseline mentation. No family present. Information obtained from chart review and bedside nurse. Apparently, patient has a caregiver. He has been intermittently febrile for approximately 1 week with associated nausea and vomiting, mostly food products. He has had a congested cough. Workup in the emergency department included an abdominal/pelvis CT demonstrating wall thickening of the cecum and ascending colon with mild adjacent mesenteric inflammation suggestive of infectious colitis. Also, patchy left lower lobe consolidative opacities and extensive mucous plugging, suspicious for aspiration pneumonia. Chest x-ray showing patchy interstitial opacities bilaterally. CBC done on admission: WBC count 14.5, hemoglobin 11.1, hematocrit 34.6, platelets 255. CMP: Sodium 146, potassium 4.1, chloride 109, serum bicarb 24, BUN 59, creatinine 1.58, glucose 247. AST 167, ALT 139, ALP 121. Total bilirubin 0.5. Amylase 80, lipase 49. Viral screen negative for influenza, RSV, COVID. Patient has been started on Unasyn for empiric antibiotic coverage. Pulmonary consult was placed for aspiration pneumonia. Patient is currently being evaluated in the emergency department, room 23. He is confused and oriented to self only. Does follow simple commands. Left-sided hemiparesis noted. Abdomen is firm, but nontender to palpation. Currently on room air oxygen. No acute respiratory distress. He has a weak congested cough. Normal saline infusing at 100 mL/h. Current vital signs: Temperature 98.7 F, heart rate 74 bpm, blood pressure 130/49 mmHg, SpO2 is reading 93% on bedside monitor, on room air. Review of Systems ROS unobtainable: due to mental status Past Medical History Past Medical History: Coronary Artery Disease (CAD), Cancer, CVA/TIA, Diabetes Mellitus, Deep Vein Thrombosis (DVT), Osteoarthritis (OA), Sleep Apnea/CPAP/BIPAP Additional Past Medical History / Comment(s): hx basal cell skin cancer, bone spurs in lt shoulder History of Any Multi-Drug Resistant Organisms: None Reported Past Surgical History: Coronary Bypass/CABG, Orthopedic Surgery Additional Past Surgical History / Comment(s): Rotator Cuff Surgery. left foot surgery. bilateral cataract surgery. gum surgery. hx. of removal of 3 fungal toenails cabg sep 2018 Past Anesthesia/Blood Transfusion Reactions: No Reported Reaction Past Psychological History: No Psychological Hx Reported Smoking Status: Never smoker Past Alcohol Use History: None Reported Additional Past Alcohol Use History / Comment(s): smoker 20 years 1ppd quit age 50 Past Drug Use History: None Reported - Past Family History Mother Family Medical History: No Reported History Additional Family Medical History / Comment(s): Mother of a "blood clot" Father Family Medical History: Coronary Artery Disease (CAD) Medications and Allergies Home Medications Medication Instructions Recorded Confirmed Type Ferrous Sulfate [Iron (65 MG 325 mg PO DAILY 12/09/19 10/03/24 History Elemental)] metFORMIN HCL [Glucophage] 1,000 mg PO BID-W/MEALS 12/09/19 10/03/24 History Cystex Cranberry Supplements 1 cap PO DAILY 09/02/24 10/03/24 History Fluocinolone/Shower Cap 1 applic TOPICAL DAILY PRN 09/02/24 10/03/24 History [Fluocinolone 0.01% Scalp Oil] Furosemide [Lasix] 20 mg PO DAILY PRN 09/02/24 10/03/24 History Insulin Glargine (Lantus) [Lantus 3 unit SQ DAILY PRN 09/02/24 10/03/24 History Vial] Ketoconazole 2% Shampoo [Nizoral] 1 applic TOPICAL Q48H 09/02/24 10/03/24 History Lidocaine 5% Patch [Lidoderm 5% 1 patch TOPICAL DAILY 09/02/24 10/03/24 History Patch] Vit C/E/Zn/Coppr/Lutein/Zeaxan 1 cap PO BID 09/02/24 10/03/24 History [Preservision Areds 2 Softgel] carvediloL [Coreg] 3.125 mg PO BID 09/02/24 10/03/24 History glipiZIDE XL [Glucotrol XL] 5 mg PO AC-BRKFST 09/02/24 10/03/24 History Aspirin EC [Ecotrin Low Dose] 81 mg PO DAILY #30 tab 09/09/24 10/03/24 Rx Atorvastatin [Lipitor] 40 mg PO HS #30 tab 09/09/24 10/03/24 Rx Clopidogrel [Plavix] 75 mg PO DAILY #30 tab 09/09/24 10/03/24 Rx Famotidine [Pepcid] 20 mg PO DAILY 15 Days #15 tab 09/09/24 10/03/24 Rx Losartan [Cozaar] 50 mg PO DAILY #30 tab 09/09/24 10/03/24 Rx amLODIPine [Norvasc] 10 mg PO DAILY #30 tab 09/09/24 10/03/24 Rx Allergies Allergy/AdvReac Type Severity Reaction Status Date / Time codeine AdvReac Nausea & Verified 10/03/24 09:56 Vomiting Physical Exam Vitals: Vital Signs Temp Pulse Resp BP Pulse Ox 10/03/24 06:34 74 16 130/49 93 L 10/03/24 03:22 75 16 128/52 96 10/03/24 00:51 91 L 10/03/24 00:43 98.7 F 81 20 130/64 87 L 10/02/24 21:59 98 F 73 16 108/58 94 L 10/02/24 19:18 97.6 F 97 16 132/58 96 Intake and Output 10/02/24 10/02/24 10/03/24 14:59 22:59 06:59 Output Total 300 300 Balance -300 -300 Output: Urine 300 300 Other: Voiding Method Toilet Diaper Weight 60.781 kg GENERAL EXAM: Alert, 83-year-old white male, laying supine, fairly comfortable in no apparent distress. HEAD: Normocephalic and atraumatic EYES: Normal reaction of pupils, equal size. NOSE: Clear with pink turbinates. THROAT: No erythema or exudates. Dry mucous membranes. NECK: No masses, no JVD. CHEST: No chest wall deformity. LUNGS: Equal air entry with n left lower lobe inspiratory crackles. On room air. SpO2 reading 93% on bedside monitor. No conversational dyspnea or accessory muscle use. Has a weak congested cough. CVS: S1 and S2 normal with no audible murmur, regular rhythm. No extra heart sounds ABDOMEN: Abdomen appears distended, active bowel sounds, firm to palpation, no significant guarding or rigidity, no organomegaly. SPINE: No scoliosis or deformity SKIN: No rashes CENTRAL NERVOUS SYSTEM: Alert, oriented to self. Left-sided facial droop. Left-sided hemiparesis noted. Right-sided upper and lower extremity strength grade 4/5. EXTREMITIES: There is no peripheral edema, clubbing, or cyanosis. Peripheral pulses are intact. Results - Laboratory Findings CBC and BMP: 10/03/24 06:17 10/03/24 06:17 PT/INR, D-dimer PT 11.0 sec (10.0-12.5) 10/02/24 19:23 INR 1.0 (<1.2) 10/02/24 19:23 Abnormal lab findings: Abnormal Labs 10/02/24 10/02/24 10/03/24 19:23 19:23 00:46 WBC 14.5 H RBC 3.58 L Hgb 11.1 L Hct 34.6 L Neutrophils # 13.2 H Lymphocytes # 0.7 L Sodium 146 H Chloride 109 H BUN 59 H Creatinine 1.58 H Glucose 247 H AST 167 H ALT 139 H Albumin 3.1 L Urine Protein 1+ H Urine Ketones Trace H Urine WBC 7 H Urine Bacteria Rare H Hyaline Casts 6 H Urine Mucus Rare H Urine Yeast (Budding) Few H - Diagnostic Findings Chest x-ray: image reviewed Assessment and Plan Assessment: Suspect aspiration pneumonia, chest x-ray continues to show overall unchanged patchy interstitial bibasilar opacities. Acute hypoxemic respiratory failure, previously on 3 L/min nasal cannula, possibly secondary to above Infectious colitis, abdominal/pelvis CT demonstrating wall thickening of the cecum and ascending colon with mild adjacent mesenteric inflammation suggestive of infectious colitis. Also, patchy left lower lobe consolidative opacities and extensive mucous plugging, suspicious for aspiration pneumonia Nausea and vomiting, improved Acute leukocytosis Acute kidney injury, improving Transaminitis, improving Hypertension History of hyperlipidemia Diabetes mellitus type 2 History of coronary disease status post two-vessel CABG History of CVA with residual left-sided hemiparesis History of bilateral carotid artery stenosis. CT angio done August, demonstrating approximately 7080% stenosis of the left proximal ICA, as well as, 60 to 70% stenosis of the proximal right ICA. Plan: Patient's medications, labs, imaging reviewed Currently on room air oxygen Maintain aspiration precautions Currently n.p.o.; speech consult was placed for swallow evaluation Continue empiric antibiotics Continue IV maintenance fluids DVT prophylaxis: Lovenox We will continue to follow I have personally seen and examined the patient, performed the documentation and the assessment and plan as written. Number of minutes spent on the visit:20 This is a joint evaluation that was done along with the nurse practitioner. This evaluation was done more than 30 minutes. The patient is known to have CVA with left-sided weakness. The patient is also known to have CAD with previous bypass surgery, diabetes mellitus type 2, hypertension hyperlipidemia and previous history of DVT. The patient presented to us with nausea and emesis. He is a very poor historian. CAT scan of the abdomen and pelvis was also done and it showed thickening of the cecum and ascending colon and mild adjacent mesenteric inflammation suggestive of an acute infectious colitis. Patchy left lower lobe consolidative changes were also seen suspecting an aspiration pneumonia. Viral screen was negative. White cell count is 7.9. Procalcitonin level is at 18.6. LFTs showed an AST of 100, ALT of 112 and a alkaline phosphatase of 107. Sodium levels at 147 and a potassium level is at 3.8. The BUN is at 61 with a creatinine of 1.27. The patient is currently on IV Unasyn covering for colitis and aspiration pneumonia. Patient is also on lactated Ringer at rate of 100 cc an hour. Diuretics have been placed on hold. Chest x- ray was reviewed and showed patchy interstitial bibasilar opacities with mild pulmonary vascular congestion. Findings are worse on the left compared to the right and the patient is currently on room air oxygen with a pulse ox ranging between 90 to 95%. Patient has a weak cough and the baseline mental status is not known. Will monitor the progress. Will continue to follow. Time with Patient: Greater than 30
[2024-10-03] MEDS ORDERED: DEXTROSE 50% SYRINGE 50 ML IVP PRN ×2 (09:04)
[2024-10-03] MEDS: LACTATED RINGERS 1,000 ML IV SCH (09:45)
[2024-10-03 09:53] LABS: Glucose,Whole Blood 157 mg/dL (70-110)
[2024-10-03] MEDS: INSULIN ASPART (NovoLOG) 100 UNIT/ML VIAL SQ SCH (09:55)
[2024-10-03 11:51] LABS: Glucose,Whole Blood 182 mg/dL (70-110)
--- NOTE | 2024-10-03 13:24 | P.PN ---
Subjective Progress Note Date: 10/03/24 Hospital Course: An 83-year-old male with past medical history of CVA with left-sided residual deficits, type II DM, CAD with stents placed, HTN, HLD, DVT, who presented to the ED with complaints of nausea and multiple episodes of vomiting. At the time of interview, the patient was confused and could not recall why he was in the emergency room. The patient however had reported to the ER staff that he had been experiencing fever today and has been having a frequent cough. He had also reported a total of 2 episodes of vomiting nonbloody nonbilious earlier today. Patient denied experiencing chest discomfort, shortness of breath, headache, visual disturbances. The patient did endorse that he had a CVA multiple years ago which was reviewed in the chart with resulting left-sided weakness. In the emergency room a CT abdomen and pelvis revealed patchy lower lobe consolidative opacities with extensive mucous plugging concerning for aspiration pneumonia along with findings consistent with infectious colitis. EKG revealed sinus rhythm at 85 bpm with findings of LVH with QTc 417 ms as reviewed by me. Laboratory evaluation was remarkable for leukocytosis of 14.5, hemoglobin 11.1, sodium 146, chloride 109, BUN 59, creatinine 1.58, glucose 247, lactic acid 1.8, AST 167, ALT 139, unremarkable UA, and viral respiratory panel negative. Admitted for management of aspiration pneumonia, colitis, started on Unasyn, fluids, WRAPPING MACHINE HELPER consulted. Pulmonology following, continue antibiotics and fluids for now. Pertinent Imaging: Chest x-ray this a.m. showed unchanged patchy interstitial bibasilar opacity Subjective: Patient was seen and examined at bedside, patient's daughter present during exam. Feels dry, denied shortness of breath, nausea, vomiting, abdominal pain. Pertinent positives and negatives as discussed above, a complete review of systems was performed and all other systems are negative. Vitals Signs Reviewed. General: [nontoxic], [no distress], [appears at stated age] Derm: [warm], [dry] Head: [atraumatic], [normocephalic], [symmetric] Eyes: [EOMI], [no lid lag], [anicteric sclera] Mouth: [no lip lesion], [mucus membranes moist], dry mucous membrane Cardiovascular: [S1S2 reg], [no murmur] Lungs: [CTA bilateral], [no rhonchi, no rales] , [no accessory muscle use] Abdominal: [soft], [ nontender to palpation], [no guarding], [no appreciable organomegaly] Ext: [no gross muscle atrophy], [no edema], [no contractures] Neuro: [ CN II-XI grossly intact], [no focal neuro deficits] Psych: [Alert], [oriented], [appropriate affect] Data Reviewed Today: Pertinent Labs: WBC normal, hemoglobin 10.8, sodium 147, potassium 3.8, creatinine 1.27, glucose is fairly controlled, AST and ALT 101 112 accordingly Assessment and Plan: Acute hypoxic respiratory failure secondary to suspected aspiration pneumonia Infectious colitis Nausea and vomiting secondary to above, resolved Hypovolemic hypernatremia Transaminitis, likely secondary to above, resolved Acute kidney injury -Pulmonology following, continue n.p.o., continue antibiotics and fluids -WRAPPING MACHINE HELPER consulted Continue IV fluids with LR,, follow-up BMP, might need to be started on D5 Follow-up sputum and blood cultures Follow-up liver function PT OT Type II DM CAD s/p CABG CVA with left-sided residual deficit History of bilateral carotid artery stenosis -SSI, Accu-Cheks -Resume rest of medications once patient is cleared to have diet DVT ppx: Lovenox Code status: Full Anticipated discharge time: 10 clinical course Objective - Vital Signs Vital signs: Vital Signs Temp 98.7 F 10/03/24 00:43 Pulse 74 10/03/24 06:34 Resp 16 10/03/24 12:15 BP 136/45 10/03/24 12:15 Pulse Ox 92 L 10/03/24 12:15 FiO2 Intake & Output 10/02/24 10/03/24 10/03/24 18:59 06:59 18:59 Output Total 600 Balance -600 Weight 60.781 kg 60.781 kg Output: Urine 600 Other: Voiding Method Toilet Diaper - Labs CBC & Chem 7: 10/03/24 06:17 10/03/24 06:17 Labs: Abnormal Lab Results - Last 24 Hours (Table) 10/02/24 10/02/24 10/03/24 Range/Units 19:23 19:23 00:46 WBC 14.5 H (3.8-10.6) k/uL RBC 3.58 L (4.30-5.90) m/uL Hgb 11.1 L (13.0-17.5) gm/dL Hct 34.6 L (39.0-53.0) % Neutrophils # 13.2 H (1.3-7.7) k/uL Lymphocytes # 0.7 L (1.0-4.8) k/uL Sodium 146 H (137-145) mmol/L Chloride 109 H (98-107) mmol/L BUN 59 H (9-20) mg/dL Creatinine 1.58 H (0.66-1.25) mg/dL Glucose 247 H (74-99) mg/dL POC Glucose (mg/dL) (70-110) mg/dL AST 167 H (17-59) U/L ALT 139 H (4-49) U/L Albumin 3.1 L (3.5-5.0) g/dL Urine Protein 1+ H (Negative) Urine Ketones Trace H (Negative) Urine WBC 7 H (0-5) /hpf Urine Bacteria Rare H (None) /hpf Hyaline Casts 6 H (0-2) /lpf Urine Mucus Rare H (None) /hpf Urine Yeast (Budding) Few H (None) /hpf 10/03/24 10/03/24 10/03/24 Range/Units 06:17 06:17 09:52 WBC (3.8-10.6) k/uL RBC 3.35 L (4.30-5.90) m/uL Hgb 10.8 L (13.0-17.5) gm/dL Hct 33.2 L (39.0-53.0) % Neutrophils # (1.3-7.7) k/uL Lymphocytes # (1.0-4.8) k/uL Sodium 147 H (137-145) mmol/L Chloride 111 H (98-107) mmol/L BUN 61 H (9-20) mg/dL Creatinine 1.27 H (0.66-1.25) mg/dL Glucose 183 H (74-99) mg/dL POC Glucose (mg/dL) 157 H (70-110) mg/dL AST 100 H (17-59) U/L ALT 112 H (4-49) U/L Albumin 3.0 L (3.5-5.0) g/dL Urine Protein (Negative) Urine Ketones (Negative) Urine WBC (0-5) /hpf Urine Bacteria (None) /hpf Hyaline Casts (0-2) /lpf Urine Mucus (None) /hpf Urine Yeast (Budding) (None) /hpf 10/03/24 Range/Units 11:50 WBC (3.8-10.6) k/uL RBC (4.30-5.90) m/uL Hgb (13.0-17.5) gm/dL Hct (39.0-53.0) % Neutrophils # (1.3-7.7) k/uL Lymphocytes # (1.0-4.8) k/uL Sodium (137-145) mmol/L Chloride (98-107) mmol/L BUN (9-20) mg/dL Creatinine (0.66-1.25) mg/dL Glucose (74-99) mg/dL POC Glucose (mg/dL) 182 H (70-110) mg/dL AST (17-59) U/L ALT (4-49) U/L Albumin (3.5-5.0) g/dL Urine Protein (Negative) Urine Ketones (Negative) Urine WBC (0-5) /hpf Urine Bacteria (None) /hpf Hyaline Casts (0-2) /lpf Urine Mucus (None) /hpf Urine Yeast (Budding) (None) /hpf
[2024-10-03] MEDS: ONDANSETRON 4 MG/2 ML VIAL IVP PRN (15:56)
[2024-10-03 17:03] LABS: Glucose,Whole Blood 236 mg/dL (70-110)
[2024-10-03 17:05] LABS: African American GFR (CKD) 66 (>60 ml/min/1.73 sqM); Anion Gap 12 mmol/L; Blood Urea Nitrogen 51 mg/dL (9-20); Calcium 8.9 mg/dL (8.4-10.2); Carbon Dioxide 29 mmol/L (22-30); Chloride 112 mmol/L (98-107); Glucose 220 mg/dL (74-99); Non-African American GFR(CKD) 57 (>60 ml/min/1.73 sqM); Potassium 3.7 mmol/L (3.5-5.1); Sodium 153 mmol/L (137-145)
[2024-10-03] MEDS ORDERED: ZINC OXIDE PASTE (Z-GUARD) 1 APPLIC TOPICAL PRN (19:10)
[2024-10-03 19:53] LABS: Glucose,Whole Blood 252 mg/dL (70-110)
[2024-10-04 00:28] LABS: Glucose,Whole Blood 211 mg/dL (70-110)
[2024-10-04 06:18] LABS: Basophils % (A) 0 %; Eosinophils # (A) 0.1 k/uL (0-0.7); Eosinophils % (A) 1 %; HCT 34.3 % (39.0-53.0); HGB 10.7 gm/dL (13.0-17.5); Hypochromasia Slight; Lymphocytes # (A) 0.7 k/uL (1.0-4.8); Lymphocytes % (A) 8 %; MCH 31.1 pg (25.0-35.0); MCHC 31.3 g/dL (31.0-37.0); MCV 99.5 fL (80.0-100.0); Mean Platelet Volume 8.1; Monocytes # (A) 0.4 k/uL (0-1.0); Monocytes % (A) 4 %; Neutrophils # (A) 7.9 k/uL (1.3-7.7); Neutrophils % (A) 86 %; Platelet Count 259 k/uL (150-450); RBC 3.45 m/uL (4.30-5.90); RDW 13.5 % (11.5-15.5); WBC 9.2 k/uL (3.8-10.6)
[2024-10-04 06:26] LABS: African American GFR (CKD) 78 (>60 ml/min/1.73 sqM); Anion Gap 8 mmol/L; Blood Urea Nitrogen 39 mg/dL (9-20); Calcium 8.6 mg/dL (8.4-10.2); Carbon Dioxide 28 mmol/L (22-30); Chloride 115 mmol/L (98-107); Glucose 181 mg/dL (74-99); Non-African American GFR(CKD) 68 (>60 ml/min/1.73 sqM); Potassium 3.8 mmol/L (3.5-5.1); Sodium 151 mmol/L (137-145)
[2024-10-04 06:30] LABS: Glucose,Whole Blood 178 mg/dL (70-110)
--- NOTE | 2024-10-04 07:55 | P.PN ---
Subjective Progress Note Date: 10/04/24 Principal diagnosis: An 83-year-old male with past medical history of CVA with left-sided residual deficits, type II DM, CAD with stents placed, HTN, HLD, DVT, who presented to the ED with complaints of nausea and multiple episodes of vomiting. At the time of interview, the patient was confused and could not recall why he was in the emergency room. The patient however had reported to the ER staff that he had been experiencing fever today and has been having a frequent cough. He had also reported a total of 2 episodes of vomiting nonbloody nonbilious earlier today. Patient denied experiencing chest discomfort, shortness of breath, headache, visual disturbances. The patient did endorse that he had a CVA multiple years ago which was reviewed in the chart with resulting left-sided weakness. In the emergency room a CT abdomen and pelvis revealed patchy lower lobe consol idative opacities with extensive mucous plugging concerning for aspiration pneumonia along with findings consistent with infectious colitis. EKG revealed sinus rhythm at 85 bpm with findings of LVH with QTc 417 ms as reviewed by me. Laboratory evaluation was remarkable for leukocytosis of 14.5, hemoglobin 11.1, sodium 146, chloride 109, BUN 59, creatinine 1.58, glucose 247, lactic acid 1.8, AST 167, ALT 139, unremarkable UA, and viral respiratory panel negative. Admitted for management of aspiration pneumonia, colitis, started on Unasyn, fluids, GROCERY MANAGER consulted. Patient seen and examined. The patient reports that he had a history of a stroke back in 1993 He has had no issues with dysphagia in the past. Spoke with nursing who reports that the patient had a coughing fit after small bites of food. No nausea vomiting reported overnight Objective - Vital Signs Vital signs: Vital Signs Temp 98.0 F 10/04/24 02:00 Pulse 73 10/04/24 02:00 Resp 14 10/04/24 02:00 BP 161/70 10/04/24 02:00 Pulse Ox 95 10/04/24 02:00 FiO2 Intake & Output 10/03/24 10/04/24 10/04/24 18:59 06:59 18:59 Intake Total 300 1200 Output Total 250 800 Balance 50 400 Weight 60.781 kg Intake: Intake, IV Titration 300 1200 Amount Lactated Ringers 1,000 ml 300 1200 @ 100 mls/hr IV .Q10H [facility] Rx#:[id number] Output: Urine 250 800 - Exam General: Male, elderly, appears stated age, pleasant Derm: [warm], [dry] Head: [atraumatic], [normocephalic], [symmetric] Eyes: [EOMI], [no lid lag], [anicteric sclera] Mouth: [no lip lesion], [mucus membranes moist], dry mucous membrane Cardiovascular: [S1S2 reg], [no murmur] sternotomy scar seen Lungs: [CTA bilateral], room air Abdominal: [soft], [ nontender to palpation], [no guarding], [no appreciable organomegaly] Ext: [no gross muscle atrophy], [no edema], [no contractures] Neuro: Moving all extremity spontaneously Psych: Calm and cooperative - Labs CBC & Chem 7: 10/04/24 05:47 10/04/24 05:47 Labs: Abnormal Lab Results - Last 24 Hours (Table) 10/03/24 10/03/24 10/03/24 Range/Units 06:17 09:52 11:50 RBC (4.30-5.90) m/uL Hgb (13.0-17.5) gm/dL Hct (39.0-53.0) % Neutrophils # (1.3-7.7) k/uL Lymphocytes # (1.0-4.8) k/uL Sodium (137-145) mmol/L Chloride (98-107) mmol/L BUN (9-20) mg/dL Glucose (74-99) mg/dL POC Glucose (mg/dL) 157 H 182 H (70-110) mg/dL Procalcitonin 18.60 H (0.02-0.50) ng/mL 10/03/24 10/03/24 10/03/24 Range/Units 16:02 17:02 19:51 RBC (4.30-5.90) m/uL Hgb (13.0-17.5) gm/dL Hct (39.0-53.0) % Neutrophils # (1.3-7.7) k/uL Lymphocytes # (1.0-4.8) k/uL Sodium 153 H (137-145) mmol/L Chloride 112 H (98-107) mmol/L BUN 51 H (9-20) mg/dL Glucose 220 H (74-99) mg/dL POC Glucose (mg/dL) 236 H 252 H (70-110) mg/dL Procalcitonin (0.02-0.50) ng/mL 10/04/24 10/04/24 10/04/24 Range/Units 00:27 05:47 05:47 RBC 3.45 L (4.30-5.90) m/uL Hgb 10.7 L (13.0-17.5) gm/dL Hct 34.3 L (39.0-53.0) % Neutrophils # 7.9 H (1.3-7.7) k/uL Lymphocytes # 0.7 L (1.0-4.8) k/uL Sodium 151 H (137-145) mmol/L Chloride 115 H (98-107) mmol/L BUN 39 H (9-20) mg/dL Glucose 181 H (74-99) mg/dL POC Glucose (mg/dL) 211 H (70-110) mg/dL Procalcitonin (0.02-0.50) ng/mL 10/04/24 Range/Units 06:29 RBC (4.30-5.90) m/uL Hgb (13.0-17.5) gm/dL Hct (39.0-53.0) % Neutrophils # (1.3-7.7) k/uL Lymphocytes # (1.0-4.8) k/uL Sodium (137-145) mmol/L Chloride (98-107) mmol/L BUN (9-20) mg/dL Glucose (74-99) mg/dL POC Glucose (mg/dL) 178 H (70-110) mg/dL Procalcitonin (0.02-0.50) ng/mL Assessment and Plan Assessment: #) Acute hypoxic respiratory failure requiring nasal cannula, this is likely in relation to aspiration pneumonia given patchy bilateral infiltrates along with his history of coughing after eating. Continue IV Unasyn to cover for aspiration pneumonia. Strict n.p.o. speech therapy evaluation along with modified videofluoroscopy today. #) Infectious colitis, check stool PCR #) Nausea/vomiting, appears resolved. continue iv zofran prn #) Tramsinitis, continue to monitor #) Acute kidney injury, resolved. Presented with creatinine 1.58, resolved baseline creatinine appears to be near 0.7 #) Hypernaremia likely from lack of free water intake. DC 0.9 and start D5W #) DM2. Continue sliding scale insulin q6hr #) CAD s/p CABG #) CVA with left sided residual deficits #) Hx of b/l carotid artery stenosis DVT ppx: lovenox code status: Full Hold PO medications, strict NPO. GROCERY MANAGER evaluation with plans for modified video fluoroscopy Time with Patient: Greater than 30
[2024-10-04] MEDS: DEXTROSE 5% IN WATER 1,000 ML IV SCH (11:30)
[2024-10-04 12:01] VITALS: BMI 18.1
--- NOTE | 2024-10-04 13:21 | P.PN ---
Subjective Progress Note Date: 10/04/24 Patient is an 83-year-old male with past medical history significant for hypertension, hyperlipidemia, diabetes mellitus, DVT, coronary artery disease status post two-vessel CABG, CVA with residual left-sided hemiparesis. Patient reportedly brought into the emergency department last night with chief complaint of abdominal pain and intermittent episodes of nausea/vomiting. Patient is a poor historian, he believes he is at home and the year is 1974. I am unsure of his baseline mentation. No family present. Information obtained from chart review and bedside nurse. Apparently, patient has a caregiver. He has been intermittently febrile for approximately 1 week with associated nausea and vomiting, mostly food products. He has had a congested cough. Workup in the emergency department included an abdominal/pelvis CT demonstrating wall thickening of the cecum and ascending colon with mild adjacent mesenteric inflammation suggestive of infectious colitis. Also, patchy left lower lobe consolidative opacities and extensive mucous plugging, suspicious for aspiration pneumonia. Chest x-ray showing patchy interstitial opacities bilaterally. CBC done on admission: WBC count 14.5, hemoglobin 11.1, hematocrit 34.6, platelets 255. CMP: Sodium 146, potassium 4.1, chloride 109, serum bicarb 24, BUN 59, creatinine 1.58, glucose 247. AST 167, ALT 139, ALP 121. Total bilirubin 0.5. Amylase 80, lipase 49. Viral screen negative for influenza, RSV, COVID. Patient has been started on Unasyn for empiric antibiotic coverage. Pulmonary consult was placed for aspiration pneumonia. Patient is currently being evaluated in the emergency department, room 23. He is confused and oriented to self only. Does follow simple commands. Left-sided hemiparesis noted. Abdomen is firm, but nontender to palpation. Currently on room air oxygen. No acute respiratory distress. He has a weak congested cough. Normal saline infusing at 100 mL/h. Current vital signs: Temperature 98.7 F, heart rate 74 bpm, blood pressure 130/49 mmHg, SpO2 is reading 93% on bedside monitor, on room air. 10/04/2024, the patient is being seen for a follow-up. He is currently on room air oxygen with a pulse ox of 93%. No significant respiratory distress. Minimal cough and congestion. Swallow evaluation was performed today and results are still pending. Meanwhile, the patient is still on IV Unasyn. No significant nausea or emesis this morning. White cell count of 9.2 with a hemoglobin 10.7 and a platelet count of 259. Sodium is at 151 potassium is at 3.8, chloride is at 115, BUN is 39 with a creatinine of 1.03. The blood culture is still negative. Noted the patient has had a previous history of stroke. Concern towards ongoing dysphagia. Apparently patient has been having coughing spells with food intake. Objective - Vital Signs Vital signs: Vital Signs Temp 98.0 F 10/04/24 02:00 Pulse 73 10/04/24 02:00 Resp 14 10/04/24 02:00 BP 161/70 10/04/24 02:00 Pulse Ox 95 10/04/24 02:00 FiO2 Intake & Output 10/03/24 10/04/24 10/04/24 18:59 06:59 18:59 Intake Total 300 1200 Output Total 250 800 Balance 50 400 Weight 60.781 kg Intake: Intake, IV Titration 300 1200 Amount Lactated Ringers 1,000 ml 300 1200 @ 100 mls/hr IV .Q10H [facility] Rx#:[id number] Output: Urine 250 800 - Exam GENERAL EXAM: Alert, 83-year-old white male, laying supine, fairly comfortable in no apparent distress. HEAD: Normocephalic and atraumatic EYES: Normal reaction of pupils, equal size. NOSE: Clear with pink turbinates. THROAT: No erythema or exudates. Dry mucous membranes. NECK: No masses, no JVD. CHEST: No chest wall deformity. LUNGS: Equal air entry with n left lower lobe inspiratory crackles. On room air. SpO2 reading 93% on bedside monitor. No conversational dyspnea or accessory muscle use. Has a weak congested cough. CVS: S1 and S2 normal with no audible murmur, regular rhythm. No extra heart sounds ABDOMEN: Abdomen appears distended, active bowel sounds, firm to palpation, no significant guarding or rigidity, no organomegaly. SPINE: No scoliosis or deformity SKIN: No rashes CENTRAL NERVOUS SYSTEM: Alert, oriented to self. Left-sided facial droop. Left-sided hemiparesis noted. Right-sided upper and lower extremity strength grade 4/5. EXTREMITIES: There is no peripheral edema, clubbing, or cyanosis. Peripheral pulses are intact. - Labs CBC & Chem 7: 10/04/24 05:47 10/04/24 05:47 Labs: Abnormal Lab Results - Last 24 Hours (Table) 10/03/24 10/03/24 10/03/24 Range/Units 06:17 09:52 11:50 RBC (4.30-5.90) m/uL Hgb (13.0-17.5) gm/dL Hct (39.0-53.0) % Neutrophils # (1.3-7.7) k/uL Lymphocytes # (1.0-4.8) k/uL Sodium (137-145) mmol/L Chloride (98-107) mmol/L BUN (9-20) mg/dL Glucose (74-99) mg/dL POC Glucose (mg/dL) 157 H 182 H (70-110) mg/dL Procalcitonin 18.60 H (0.02-0.50) ng/mL 10/03/24 10/03/24 10/03/24 Range/Units 16:02 17:02 19:51 RBC (4.30-5.90) m/uL Hgb (13.0-17.5) gm/dL Hct (39.0-53.0) % Neutrophils # (1.3-7.7) k/uL Lymphocytes # (1.0-4.8) k/uL Sodium 153 H (137-145) mmol/L Chloride 112 H (98-107) mmol/L BUN 51 H (9-20) mg/dL Glucose 220 H (74-99) mg/dL POC Glucose (mg/dL) 236 H 252 H (70-110) mg/dL Procalcitonin (0.02-0.50) ng/mL 10/04/24 10/04/24 10/04/24 Range/Units 00:27 05:47 05:47 RBC 3.45 L (4.30-5.90) m/uL Hgb 10.7 L (13.0-17.5) gm/dL Hct 34.3 L (39.0-53.0) % Neutrophils # 7.9 H (1.3-7.7) k/uL Lymphocytes # 0.7 L (1.0-4.8) k/uL Sodium 151 H (137-145) mmol/L Chloride 115 H (98-107) mmol/L BUN 39 H (9-20) mg/dL Glucose 181 H (74-99) mg/dL POC Glucose (mg/dL) 211 H (70-110) mg/dL Procalcitonin (0.02-0.50) ng/mL 10/04/24 Range/Units 06:29 RBC (4.30-5.90) m/uL Hgb (13.0-17.5) gm/dL Hct (39.0-53.0) % Neutrophils # (1.3-7.7) k/uL Lymphocytes # (1.0-4.8) k/uL Sodium (137-145) mmol/L Chloride (98-107) mmol/L BUN (9-20) mg/dL Glucose (74-99) mg/dL POC Glucose (mg/dL) 178 H (70-110) mg/dL Procalcitonin (0.02-0.50) ng/mL Assessment and Plan Assessment: aspiration pneumonia, chest x-ray continues to show overall unchanged patchy interstitial bibasilar opacities. Awaiting the results of the swallow evaluation. The patient is currently on room air oxygen. The patient is currently on IV Unasyn Acute hypoxemic respiratory failure, currently on room air oxygen Infectious colitis, abdominal/pelvis CT demonstrating wall thickening of the cecum and ascending colon with mild adjacent mesenteric inflammation suggestive of infectious colitis. Also, patchy left lower lobe consolidative opacities and extensive mucous plugging, suspicious for aspiration pneumonia Nausea and vomiting, improved Acute leukocytosis, improved Acute kidney injury, improving Transaminitis, improving Hypochloremic hyponatremia Hypertension History of hyperlipidemia Diabetes mellitus type 2 History of coronary disease status post two-vessel CABG History of CVA with residual left-sided hemiparesis History of bilateral carotid artery stenosis. CT angio done August, demonstrating approximately 7080% stenosis of the left proximal ICA, as well as, 60 to 70% stenosis of the proximal right ICA. Plan: Patient stable on room air oxygen Maintain aspiration precautions Complete the swallow evaluation Continue empiric antibiotics, the patient is currently on IV Unasyn Continue IV maintenance fluids and switched IV fluids to D5 water at rate of 100 cc an hour and monitor electrolytes DVT prophylaxis: Lovenox We will continue to follow
--- NOTE | 2024-10-04 13:55 | FL ---
Exam Date: 10/04/2024 1:13 PM. Modified barium swallow for dysphagia. Consistencies administered: Various consistency of barium. Fluoro time: 1 min 40 sec No images were sent to PACS. Please see speech pathology report. DAP: 1332.19 mGym2 Gycm2 [facility], , 10/04/2024 1:52 PM
[2024-10-04 17:04] LABS: African American GFR (CKD) >90 (>60 ml/min/1.73 sqM); Anion Gap 12 mmol/L; Blood Urea Nitrogen 29 mg/dL (9-20); Calcium 8.3 mg/dL (8.4-10.2); Carbon Dioxide 27 mmol/L (22-30); Chloride 111 mmol/L (98-107); Glucose 289 mg/dL (74-99); Non-African American GFR(CKD) 78 (>60 ml/min/1.73 sqM); Potassium 3.3 mmol/L (3.5-5.1); Sodium 150 mmol/L (137-145)
[2024-10-04] MEDS: SODIUM CHLORIDE 0.45% 1,000 ML IV SCH (18:38)
[2024-10-04 23:58] LABS: Glucose,Whole Blood 348 mg/dL (70-110)
[2024-10-05 06:09] LABS: Glucose,Whole Blood 265 mg/dL (70-110)
[2024-10-05 07:50] LABS: Basophils % (A) 0 %; Eosinophils # (A) 0.1 k/uL (0-0.7); Eosinophils % (A) 1 %; HCT 36.5 % (39.0-53.0); HGB 11.6 gm/dL (13.0-17.5); Hypochromasia Moderate; Lymphocytes # (A) 0.7 k/uL (1.0-4.8); Lymphocytes % (A) 6 %; MCH 31.7 pg (25.0-35.0); MCHC 31.8 g/dL (31.0-37.0); MCV 99.9 fL (80.0-100.0); Mean Platelet Volume 7.6; Monocytes # (A) 0.5 k/uL (0-1.0); Monocytes % (A) 5 %; Neutrophils # (A) 10.2 k/uL (1.3-7.7); Neutrophils % (A) 87 %; Platelet Count 267 k/uL (150-450); RBC 3.65 m/uL (4.30-5.90); RDW 13.1 % (11.5-15.5); WBC 11.7 k/uL (3.8-10.6)
[2024-10-05 08:15] LABS: ALT 153 U/L (4-49); AST 151 U/L (17-59); African American GFR (CKD) >90 (>60 ml/min/1.73 sqM); Albumin 2.9 g/dL (3.5-5.0); Alkaline Phosphatase 125 U/L (38-126); Anion Gap 9 mmol/L; Blood Urea Nitrogen 22 mg/dL (9-20); Calcium 8.2 mg/dL (8.4-10.2); Carbon Dioxide 30 mmol/L (22-30); Chloride 109 mmol/L (98-107); Glucose 256 mg/dL (74-99); Non-African American GFR(CKD) 81 (>60 ml/min/1.73 sqM); Potassium 3.8 mmol/L (3.5-5.1); Sodium 148 mmol/L (137-145); Total Bilirubin 0.5 mg/dL (0.2-1.3); Total Protein 6.5 g/dL (6.3-8.2)
--- NOTE | 2024-10-05 09:17 | P.PN ---
Subjective Progress Note Date: 10/05/24 Principal diagnosis: An 83-year-old male with past medical history of CVA with left-sided residual deficits, type II DM, CAD with stents placed, HTN, HLD, DVT, who presented to the ED with complaints of nausea and multiple episodes of vomiting. At the time of interview, the patient was confused and could not recall why he was in the emergency room. The patient however had reported to the ER staff that he had been experiencing fever today and has been having a frequent cough. He had also reported a total of 2 episodes of vomiting nonbloody nonbilious earlier today. Patient denied experiencing chest discomfort, shortness of breath, headache, visual disturbances. The patient did endorse that he had a CVA multiple years ago which was reviewed in the chart with resulting left-sided weakness. In the emergency room a CT abdomen and pelvis revealed patchy lower lobe consol idative opacities with extensive mucous plugging concerning for aspiration pneumonia along with findings consistent with infectious colitis. EKG revealed sinus rhythm at 85 bpm with findings of LVH with QTc 417 ms as reviewed by me. Laboratory evaluation was remarkable for leukocytosis of 14.5, hemoglobin 11.1, sodium 146, chloride 109, BUN 59, creatinine 1.58, glucose 247, lactic acid 1.8, AST 167, ALT 139, unremarkable UA, and viral respiratory panel negative. Admitted for management of aspiration pneumonia, colitis, started on Unasyn, fluids, MEDICAL OFFICE ASST consulted. He was seen by speech therapy and a modified videofluoroscopy on March 04. He was then started on pured diet Patient seen and examined. He has done well with a pured diet and the nurse reports no coughing episodes. He still remains hypernatremic Objective - Vital Signs Vital signs: Vital Signs Temp 96.5 F L 10/05/24 07:05 Pulse 85 10/05/24 07:05 Resp 16 10/05/24 07:05 BP 180/77 10/05/24 07:05 Pulse Ox 94 L 10/05/24 07:05 FiO2 Intake & Output 10/04/24 10/05/24 10/05/24 18:59 06:59 18:59 Output Total 1300 Balance -1300 Weight 60.781 kg Output: Urine 1300 Other: Voiding Method Toilet Diaper - Exam General: Male, elderly, appears stated age, pleasant Derm: [warm], [dry] Head: [atraumatic], [normocephalic], [symmetric] Eyes: [EOMI], [no lid lag], [anicteric sclera] Mouth: [no lip lesion], [mucus membranes moist], dry mucous membrane Cardiovascular: [S1S2 reg], [no murmur] sternotomy scar seen Lungs: [CTA bilateral], room air Abdominal: [soft], [ nontender to palpation], [no guarding], [no appreciable organomegaly] Ext: [no gross muscle atrophy], [no edema], [no contractures] Neuro: Moving all extremity spontaneously Psych: Calm and cooperative - Labs CBC & Chem 7: 10/05/24 06:36 10/05/24 06:36 Labs: Abnormal Lab Results - Last 24 Hours (Table) 10/04/24 10/04/24 10/04/24 Range/Units 05:47 16:27 23:57 WBC (3.8-10.6) k/uL RBC (4.30-5.90) m/uL Hgb (13.0-17.5) gm/dL Hct (39.0-53.0) % Neutrophils # (1.3-7.7) k/uL Lymphocytes # (1.0-4.8) k/uL Sodium 150 H (137-145) mmol/L Potassium 3.3 L (3.5-5.1) mmol/L Chloride 111 H (98-107) mmol/L BUN 29 H (9-20) mg/dL Glucose 289 H (74-99) mg/dL POC Glucose (mg/dL) 348 H (70-110) mg/dL Hemoglobin A1c 6.6 H (<=6.0) % Calcium 8.3 L (8.4-10.2) mg/dL AST (17-59) U/L ALT (4-49) U/L Albumin (3.5-5.0) g/dL 10/05/24 10/05/24 10/05/24 Range/Units 06:07 06:36 06:36 WBC 11.7 H (3.8-10.6) k/uL RBC 3.65 L (4.30-5.90) m/uL Hgb 11.6 L (13.0-17.5) gm/dL Hct 36.5 L (39.0-53.0) % Neutrophils # 10.2 H (1.3-7.7) k/uL Lymphocytes # 0.7 L (1.0-4.8) k/uL Sodium 148 H (137-145) mmol/L Potassium (3.5-5.1) mmol/L Chloride 109 H (98-107) mmol/L BUN 22 H (9-20) mg/dL Glucose 256 H (74-99) mg/dL POC Glucose (mg/dL) 265 H (70-110) mg/dL Hemoglobin A1c (<=6.0) % Calcium 8.2 L (8.4-10.2) mg/dL AST 151 H (17-59) U/L ALT 153 H (4-49) U/L Albumin 2.9 L (3.5-5.0) g/dL Microbiology - Last 24 Hours (Table) 10/02/24 22:58 Blood Culture - Preliminary Blood Assessment and Plan Assessment: #) Acute hypoxic respiratory failure requiring nasal cannula, which is improved he is on room air this is likely in relation to aspiration pneumonia given patchy bilateral infiltrates along with his history of coughing after eating. Continue IV Unasyn to cover for aspiration pneumonia. Had a modified arthroscopy on March 04 and he was started. Diet. #) Infectious colitis, check stool PCR this appears to have been resolved #) Nausea/vomiting, appears resolved. continue iv zofran prn #) Tramsinitis, continue to monitor #) Acute kidney injury, resolved. Presented with creatinine 1.58, resolved baseline creatinine appears to be near 0.7 #) Hypernaremia likely from lack of free water intake. D5W #) DM2. Continue sliding scale insulin q6hr #) CAD s/p CABG #) CVA with left sided residual deficits #) Hx of b/l carotid artery stenosis I had spoken to son Ziyad over the phone today. If his sodium level improves by tomorrow and able to tolerate oral intake can be discharged home tomorrow DVT ppx: lovenox code status: Full
[2024-10-05] MEDS: FAMOTIDINE 20 MG TAB PO SCH (10:22)
[2024-10-05] MEDS: carvediloL 3.125 MG TAB PO SCH (10:22)
[2024-10-05] MEDS: CLOPIDOGREL 75 MG TAB PO SCH (10:22)
[2024-10-05] MEDS: ASPIRIN 81 MG PO SCH (10:22)
[2024-10-05] MEDS: amLODIPine 10 MG TAB PO SCH (10:23)
[2024-10-05 11:46] LABS: Glucose,Whole Blood 288 mg/dL (70-110)
[2024-10-05] MEDS: DEXTROSE 5% IN WATER 1,000 ML IV SCH (12:10)
--- NOTE | 2024-10-05 13:44 | P.PN ---
Subjective Progress Note Date: 10/05/24 Patient is an 83-year-old male with past medical history significant for hypertension, hyperlipidemia, diabetes mellitus, DVT, coronary artery disease status post two-vessel CABG, CVA with residual left-sided hemiparesis. Patient reportedly brought into the emergency department last night with chief complaint of abdominal pain and intermittent episodes of nausea/vomiting. Patient is a poor historian, he believes he is at home and the year is 1974. I am unsure of his baseline mentation. No family present. Information obtained from chart review and bedside nurse. Apparently, patient has a caregiver. He has been intermittently febrile for approximately 1 week with associated nausea and vomiting, mostly food products. He has had a congested cough. Workup in the emergency department included an abdominal/pelvis CT demonstrating wall thickening of the cecum and ascending colon with mild adjacent mesenteric inflammation suggestive of infectious colitis. Also, patchy left lower lobe consolidative opacities and extensive mucous plugging, suspicious for aspiration pneumonia. Chest x-ray showing patchy interstitial opacities bilaterally. CBC done on admission: WBC count 14.5, hemoglobin 11.1, hematocrit 34.6, platelets 255. CMP: Sodium 146, potassium 4.1, chloride 109, serum bicarb 24, BUN 59, creatinine 1.58, glucose 247. AST 167, ALT 139, ALP 121. Total bilirubin 0.5. Amylase 80, lipase 49. Viral screen negative for influenza, RSV, COVID. Patient has been started on Unasyn for empiric antibiotic coverage. Pulmonary consult was placed for aspiration pneumonia. Patient is currently being evaluated in the emergency department, room 23. He is confused and oriented to self only. Does follow simple commands. Left-sided hemiparesis noted. Abdomen is firm, but nontender to palpation. Currently on room air oxygen. No acute respiratory distress. He has a weak congested cough. Normal saline infusing at 100 mL/h. Current vital signs: Temperature 98.7 F, heart rate 74 bpm, blood pressure 130/49 mmHg, SpO2 is reading 93% on bedside monitor, on room air. 10/04/2024, the patient is being seen for a follow-up. He is currently on room air oxygen with a pulse ox of 93%. No significant respiratory distress. Minimal cough and congestion. Swallow evaluation was performed today and results are still pending. Meanwhile, the patient is still on IV Unasyn. No significant nausea or emesis this morning. White cell count of 9.2 with a hemoglobin 10.7 and a platelet count of 259. Sodium is at 151 potassium is at 3.8, chloride is at 115, BUN is 39 with a creatinine of 1.03. The blood culture is still negative. Noted the patient has had a previous history of stroke. Concern towards ongoing dysphagia. Apparently patient has been having coughing spells with food intake. 10/05/2024, the patient is clinically stable. He is having purely diet. No emesis. No coughing no significant sputum production. He is on D5 water and the sodium level is down to 148. Chloride is down to 109. BUN is 22 with a creatinine of 0.8. The white cell count is at 11.7 with a hemoglobin of 11.6. Remains on IV Unasyn. Remains on room air oxygen. No signs of any significant respiratory distress. No reported aspiration. Objective - Vital Signs Vital signs: Vital Signs Temp 96.5 F L 10/05/24 07:05 Pulse 85 10/05/24 07:05 Resp 16 10/05/24 07:05 BP 180/77 10/05/24 07:05 Pulse Ox 94 L 10/05/24 07:05 FiO2 Intake & Output 10/04/24 10/05/24 10/05/24 18:59 06:59 18:59 Output Total 1300 Balance -1300 Weight 60.781 kg Output: Urine 1300 Other: Voiding Method Toilet Diaper - Exam GENERAL EXAM: Alert, 83-year-old white male, laying supine, fairly comfortable in no apparent distress. HEAD: Normocephalic and atraumatic EYES: Normal reaction of pupils, equal size. NOSE: Clear with pink turbinates. THROAT: No erythema or exudates. Dry mucous membranes. NECK: No masses, no JVD. CHEST: No chest wall deformity. LUNGS: Equal air entry with n left lower lobe inspiratory crackles. On room air. SpO2 reading 93% on bedside monitor. No conversational dyspnea or accessory muscle use. Has a weak congested cough. CVS: S1 and S2 normal with no audible murmur, regular rhythm. No extra heart sounds ABDOMEN: Abdomen appears distended, active bowel sounds, firm to palpation, no significant guarding or rigidity, no organomegaly. SPINE: No scoliosis or deformity SKIN: No rashes CENTRAL NERVOUS SYSTEM: Alert, oriented to self. Left-sided facial droop. Left-sided hemiparesis noted. Right-sided upper and lower extremity strength grade 4/5. EXTREMITIES: There is no peripheral edema, clubbing, or cyanosis. Peripheral pulses are intact. - Labs CBC & Chem 7: 10/05/24 06:36 10/05/24 06:36 Labs: Abnormal Lab Results - Last 24 Hours (Table) 10/04/24 10/04/24 10/04/24 Range/Units 05:47 16:27 23:57 WBC (3.8-10.6) k/uL RBC (4.30-5.90) m/uL Hgb (13.0-17.5) gm/dL Hct (39.0-53.0) % Neutrophils # (1.3-7.7) k/uL Lymphocytes # (1.0-4.8) k/uL Sodium 150 H (137-145) mmol/L Potassium 3.3 L (3.5-5.1) mmol/L Chloride 111 H (98-107) mmol/L BUN 29 H (9-20) mg/dL Glucose 289 H (74-99) mg/dL POC Glucose (mg/dL) 348 H (70-110) mg/dL Hemoglobin A1c 6.6 H (<=6.0) % Calcium 8.3 L (8.4-10.2) mg/dL AST (17-59) U/L ALT (4-49) U/L Albumin (3.5-5.0) g/dL 10/05/24 10/05/24 10/05/24 Range/Units 06:07 06:36 06:36 WBC 11.7 H (3.8-10.6) k/uL RBC 3.65 L (4.30-5.90) m/uL Hgb 11.6 L (13.0-17.5) gm/dL Hct 36.5 L (39.0-53.0) % Neutrophils # 10.2 H (1.3-7.7) k/uL Lymphocytes # 0.7 L (1.0-4.8) k/uL Sodium 148 H (137-145) mmol/L Potassium (3.5-5.1) mmol/L Chloride 109 H (98-107) mmol/L BUN 22 H (9-20) mg/dL Glucose 256 H (74-99) mg/dL POC Glucose (mg/dL) 265 H (70-110) mg/dL Hemoglobin A1c (<=6.0) % Calcium 8.2 L (8.4-10.2) mg/dL AST 151 H (17-59) U/L ALT 153 H (4-49) U/L Albumin 2.9 L (3.5-5.0) g/dL Microbiology - Last 24 Hours (Table) 10/02/24 22:58 Blood Culture - Preliminary Blood Assessment and Plan Assessment: aspiration pneumonia, chest x-ray continues to show overall unchanged patchy interstitial bibasilar opacities. Awaiting the results of the swallow evaluation. The patient is currently on room air oxygen. The patient is currently on IV Unasyn Acute hypoxemic respiratory failure, currently on room air oxygen Infectious colitis, abdominal/pelvis CT demonstrating wall thickening of the c ecum and ascending colon with mild adjacent mesenteric inflammation suggestive of infectious colitis. Also, patchy left lower lobe consolidative opacities and extensive mucous plugging, suspicious for aspiration pneumonia. Currently tolerating pured diet Nausea and vomiting, improved Acute leukocytosis, improved Acute kidney injury, improving Transaminitis, improving Hypochloremic hyponatremia, improving Hypertension History of hyperlipidemia Diabetes mellitus type 2 History of coronary disease status post two-vessel CABG History of CVA with residual left-sided hemiparesis History of bilateral carotid artery stenosis. CT angio done August, demonstrating approximately 7080% stenosis of the left proximal ICA, as well as, 60 to 70% stenosis of the proximal right ICA. Plan: Remains on room air oxygen Advance diet as tolerated currently on pured diet Patient stable on room air oxygen Maintain aspiration precautions Completed the swallow evaluation Continue empiric antibiotics, the patient is currently on IV Unasyn Continue IV maintenance fluids and switched IV fluids to D5 water at rate of 100 cc an hour and monitor electrolytes, sodium level is improving DVT prophylaxis: Lovenox We will continue to follow
[2024-10-05] MEDS: AMPICILLIN-SULBACTAM 3 GM in SODIUM CHLORIDE 0.9% 100 ML IVPB SCH (14:51)
[2024-10-05 17:34] LABS: African American GFR (CKD) >90 (>60 ml/min/1.73 sqM); Anion Gap 8 mmol/L; Blood Urea Nitrogen 16 mg/dL (9-20); Calcium 8.1 mg/dL (8.4-10.2); Carbon Dioxide 29 mmol/L (22-30); Chloride 107 mmol/L (98-107); Glucose 267 mg/dL (74-99); Non-African American GFR(CKD) 81 (>60 ml/min/1.73 sqM); Potassium 3.3 mmol/L (3.5-5.1); Sodium 144 mmol/L (137-145)
[2024-10-05 17:50] LABS: Glucose,Whole Blood 253 mg/dL (70-110)
[2024-10-05] MEDS: ATORVASTATIN 40 MG TAB PO SCH (20:34)
[2024-10-05 23:57] LABS: Glucose,Whole Blood 271 mg/dL (70-110)
[2024-10-06 06:11] LABS: Glucose,Whole Blood 253 mg/dL (70-110)
--- NOTE | 2024-10-06 08:45 | P.PN ---
Subjective Progress Note Date: 10/06/24 Patient is an 83-year-old male with past medical history significant for hypertension, hyperlipidemia, diabetes mellitus, DVT, coronary artery disease status post two-vessel CABG, CVA with residual left-sided hemiparesis. Patient reportedly brought into the emergency department last night with chief complaint of abdominal pain and intermittent episodes of nausea/vomiting. Patient is a poor historian, he believes he is at home and the year is 1974. I am unsure of his baseline mentation. No family present. Information obtained from chart review and bedside nurse. Apparently, patient has a caregiver. He has been intermittently febrile for approximately 1 week with associated nausea and vomiting, mostly food products. He has had a congested cough. Workup in the emergency department included an abdominal/pelvis CT demonstrating wall thickening of the cecum and ascending colon with mild adjacent mesenteric inflammation suggestive of infectious colitis. Also, patchy left lower lobe consolidative opacities and extensive mucous plugging, suspicious for aspiration pneumonia. Chest x-ray showing patchy interstitial opacities bilaterally. CBC done on admission: WBC count 14.5, hemoglobin 11.1, hematocrit 34.6, platelets 255. CMP: Sodium 146, potassium 4.1, chloride 109, serum bicarb 24, BUN 59, creatinine 1.58, glucose 247. AST 167, ALT 139, ALP 121. Total bilirubin 0.5. Amylase 80, lipase 49. Viral screen negative for influenza, RSV, COVID. Patient has been started on Unasyn for empiric antibiotic coverage. Pulmonary consult was placed for aspiration pneumonia. Patient is currently being evaluated in the emergency department, room 23. He is confused and oriented to self only. Does follow simple commands. Left-sided hemiparesis noted. Abdomen is firm, but nontender to palpation. Currently on room air oxygen. No acute respiratory distress. He has a weak congested cough. Normal saline infusing at 100 mL/h. Current vital signs: Temperature 98.7 F, heart rate 74 bpm, blood pressure 130/49 mmHg, SpO2 is reading 93% on bedside monitor, on room air. 10/04/2024, the patient is being seen for a follow-up. He is currently on room air oxygen with a pulse ox of 93%. No significant respiratory distress. Minimal cough and congestion. Swallow evaluation was performed today and results are still pending. Meanwhile, the patient is still on IV Unasyn. No significant nausea or emesis this morning. White cell count of 9.2 with a hemoglobin 10.7 and a platelet count of 259. Sodium is at 151 potassium is at 3.8, chloride is at 115, BUN is 39 with a creatinine of 1.03. The blood culture is still negative. Noted the patient has had a previous history of stroke. Concern towards ongoing dysphagia. Apparently patient has been having coughing spells with food intake. 10/05/2024, the patient is clinically stable. He is having purely diet. No emesis. No coughing no significant sputum production. He is on D5 water and the sodium level is down to 148. Chloride is down to 109. BUN is 22 with a creatinine of 0.8. The white cell count is at 11.7 with a hemoglobin of 11.6. Remains on IV Unasyn. Remains on room air oxygen. No signs of any significant respiratory distress. No reported aspiration. 10/06/2024, the patient remains on room air oxygen. He remains on IV Zosyn. No respiratory distress. He is taking honey nectar thickened oral material and is able to tolerate it well. Denies having any nausea or emesis. His last bowel movement was 2 days ago. Abdomen is nondistended. Remains on IV Unasyn. Remains on Lovenox for DVT prophylaxis. Labs from today are still pending. Labs from yesterday were all stable. No significant leukocytosis. Renal function remains stable. No other significant events overnight. Objective - Vital Signs Vital signs: Vital Signs Temp 98 F 10/06/24 07:00 Pulse 79 10/06/24 07:00 Resp 20 10/06/24 07:00 BP 170/75 10/06/24 07:00 Pulse Ox 97 10/06/24 07:00 FiO2 Intake & Output 10/05/24 10/06/24 10/06/24 18:59 06:59 18:59 Output Total 650 600 Balance -650 -600 Output: Urine 650 600 Other: Voiding Method Toilet Diaper Diaper External Catheter - Exam GENERAL EXAM: Alert, 83-year-old white male, laying supine, fairly comfortable i n no apparent distress. HEAD: Normocephalic and atraumatic EYES: Normal reaction of pupils, equal size. NOSE: Clear with pink turbinates. THROAT: No erythema or exudates. Dry mucous membranes. NECK: No masses, no JVD. CHEST: No chest wall deformity. LUNGS: Equal air entry with n left lower lobe inspiratory crackles. On room air. SpO2 reading 93% on bedside monitor. No conversational dyspnea or accessory muscle use. Has a weak congested cough. CVS: S1 and S2 normal with no audible murmur, regular rhythm. No extra heart sounds ABDOMEN: Abdomen appears distended, active bowel sounds, firm to palpation, no significant guarding or rigidity, no organomegaly. SPINE: No scoliosis or deformity SKIN: No rashes CENTRAL NERVOUS SYSTEM: Alert, oriented to self. Left-sided facial droop. Left-sided hemiparesis noted. Right-sided upper and lower extremity strength grade 4/5. EXTREMITIES: There is no peripheral edema, clubbing, or cyanosis. Peripheral pulses are intact. - Labs CBC & Chem 7: 10/05/24 06:36 10/05/24 16:46 Labs: Abnormal Lab Results - Last 24 Hours (Table) 10/05/24 10/05/24 10/05/24 Range/Units 11:45 16:46 17:48 Potassium 3.3 L (3.5-5.1) mmol/L Glucose 267 H (74-99) mg/dL POC Glucose (mg/dL) 288 H 253 H (70-110) mg/dL Calcium 8.1 L (8.4-10.2) mg/dL 10/05/24 10/06/24 Range/Units 23:54 06:07 Potassium (3.5-5.1) mmol/L Glucose (74-99) mg/dL POC Glucose (mg/dL) 271 H 253 H (70-110) mg/dL Calcium (8.4-10.2) mg/dL Microbiology - Last 24 Hours (Table) 10/02/24 22:58 Blood Culture - Preliminary Blood Assessment and Plan Assessment: aspiration pneumonia, chest x-ray continues to show overall unchanged patchy interstitial bibasilar opacities. Awaiting the results of the swallow evaluation. The patient is currently on room air oxygen. The patient is c urrently on IV Unasyn. Clinically stable. Will obtain a follow-up chest x-ray today. Acute hypoxemic respiratory failure, currently on room air oxygen Infectious colitis, abdominal/pelvis CT demonstrating wall thickening of the cecum and ascending colon with mild adjacent mesenteric inflammation suggestive of infectious colitis. Also, patchy left lower lobe consolidative opacities and extensive mucous plugging, suspicious for aspiration pneumonia. Currently tolerating pured diet Nausea and vomiting, improved Acute leukocytosis, improved Acute kidney injury, improving Transaminitis, improving Hypochloremic hyponatremia, improving Hypertension History of hyperlipidemia Diabetes mellitus type 2 History of coronary disease status post two-vessel CABG History of CVA with residual left-sided hemiparesis History of bilateral carotid artery stenosis. CT angio done August, demonstrating approximately 7080% stenosis of the left proximal ICA, as well as, 60 to 70% stenosis of the proximal right ICA. Plan: Remains on room air oxygen repeat chest x-ray today Monitor bowel movement activity and give laxatives if needed Advance diet as tolerated currently on pured diet Patient stable on room air oxygen Maintain aspiration precautions Completed the swallow evaluation Continue empiric antibiotics, the patient is currently on IV Unasyn Continue IV maintenance fluids and switched IV fluids to D5 water at rate of 100 cc an hour and monitor electrolytes, sodium level is improving, the sodium level has been downtrending is currently down to 144. Will reduce the fluid rate to 50 cc an hour. DVT prophylaxis: Lovenox We will continue to follow
[2024-10-06] MEDS: LOSARTAN 50 MG TAB PO SCH (08:49)
[2024-10-06 11:28] LABS: Glucose,Whole Blood 247 mg/dL (70-110)
--- NOTE | 2024-10-06 12:37 | P.CONS ---
History of Present Illness - Reason for Consult Consult date: 10/06/24 Wounds Requesting physician: Deb Costa - Chief Complaint Aspiration pneumonia, history of CVA with residual left-sided hemiparesis - History of Present Illness This is a pleasant 83-year-old male with past medical history significant for prior CVA, left-sided hemiparesis, bilateral carotid artery stenosis 70 to 80% on the left proximal ICA and 60 to 70% of the proximal right ICA, diabetes mellitus type 2, DVT, CAD, CABG, hypertension, DDD, medically debilitated-lives at home with son with 24-hour care, pressure ulcers present on admission, and other medical issues. Review of Systems ROS unobtainable: due to mental status Past Medical History Past Medical History: Coronary Artery Disease (CAD), Cancer, CVA/TIA, Diabetes Mellitus, Deep Vein Thrombosis (DVT), Osteoarthritis (OA), Sleep Apnea/CPAP/BIPAP Additional Past Medical History / Comment(s): hx basal cell skin cancer, bone spurs in lt shoulder History of Any Multi-Drug Resistant Organisms: None Reported Past Surgical History: Coronary Bypass/CABG, Orthopedic Surgery Additional Past Surgical History / Comment(s): Rotator Cuff Surgery. left foot surgery. bilateral cataract surgery. gum surgery. hx. of removal of 3 fungal toenails cabg sep 2018 Past Anesthesia/Blood Transfusion Reactions: No Reported Reaction Past Psychological History: No Psychological Hx Reported Smoking Status: Never smoker Past Alcohol Use History: None Reported Additional Past Alcohol Use History / Comment(s): smoker 20 years 1ppd quit age 50 Past Drug Use History: None Reported - Past Family History Mother Family Medical History: No Reported History Additional Family Medical History / Comment(s): Mother of a "blood clot" Father Family Medical History: Coronary Artery Disease (CAD) Medications and Allergies Home Medications Medication Instructions Recorded Confirmed Type Ferrous Sulfate [Iron (65 MG 325 mg PO DAILY 12/09/19 10/03/24 History Elemental)] metFORMIN HCL [Glucophage] 1,000 mg PO BID-W/MEALS 12/09/19 10/03/24 History Cystex Cranberry Supplements 1 cap PO DAILY 09/02/24 10/03/24 History Fluocinolone/Shower Cap 1 applic TOPICAL DAILY PRN 09/02/24 10/03/24 History [Fluocinolone 0.01% Scalp Oil] Furosemide [Lasix] 20 mg PO DAILY PRN 09/02/24 10/03/24 History Insulin Glargine (Lantus) [Lantus 3 unit SQ DAILY PRN 09/02/24 10/03/24 History Vial] Ketoconazole 2% Shampoo [Nizoral] 1 applic TOPICAL Q48H 09/02/24 10/03/24 History Lidocaine 5% Patch [Lidoderm 5% 1 patch TOPICAL DAILY 09/02/24 10/03/24 History Patch] Vit C/E/Zn/Coppr/Lutein/Zeaxan 1 cap PO BID 09/02/24 10/03/24 History [Preservision Areds 2 Softgel] carvediloL [Coreg] 3.125 mg PO BID 09/02/24 10/03/24 History glipiZIDE XL [Glucotrol XL] 5 mg PO AC-BRKFST 09/02/24 10/03/24 History Aspirin EC [Ecotrin Low Dose] 81 mg PO DAILY #30 tab 09/09/24 10/03/24 Rx Atorvastatin [Lipitor] 40 mg PO HS #30 tab 09/09/24 10/03/24 Rx Clopidogrel [Plavix] 75 mg PO DAILY #30 tab 09/09/24 10/03/24 Rx Famotidine [Pepcid] 20 mg PO DAILY 15 Days #15 tab 09/09/24 10/03/24 Rx Losartan [Cozaar] 50 mg PO DAILY #30 tab 09/09/24 10/03/24 Rx amLODIPine [Norvasc] 10 mg PO DAILY #30 tab 09/09/24 10/03/24 Rx Allergies Allergy/AdvReac Type Severity Reaction Status Date / Time codeine AdvReac Nausea & Verified 10/03/24 09:56 Vomiting Physical Exam Vitals: Vital Signs Temp Pulse Resp BP Pulse Ox 10/06/24 09:49 79 20 10/06/24 07:00 98 F 79 20 170/75 97 10/06/24 02:00 97.9 F 75 19 144/73 95 10/05/24 20:00 83 20 161/70 10/05/24 13:00 97.5 F L 78 16 153/66 97 Intake and Output 10/05/24 10/06/24 10/06/24 22:59 06:59 14:59 Output Total 650 600 Balance -650 -600 Output: Urine 650 600 Other: Voiding Method Diaper Diaper External Catheter External Catheter On exam sacral, bilateral buttock/right greater than left early stage III pressure ulcers, with minimal eschar on left. Unstageable pressure ulcers on right and left ankles and left heel. Refer to specific measurements as per nursing documentation. Results CBC & Chem 7: 10/05/24 06:36 10/05/24 16:46 Labs: Abnormal Lab Results - Last 24 Hours (Table) 10/05/24 10/05/24 10/05/24 Range/Units 16:46 17:48 23:54 Potassium 3.3 L (3.5-5.1) mmol/L Glucose 267 H (74-99) mg/dL POC Glucose (mg/dL) 253 H 271 H (70-110) mg/dL Calcium 8.1 L (8.4-10.2) mg/dL 10/06/24 10/06/24 Range/Units 06:07 11:26 Potassium (3.5-5.1) mmol/L Glucose (74-99) mg/dL POC Glucose (mg/dL) 253 H 247 H (70-110) mg/dL Calcium (8.4-10.2) mg/dL Microbiology - Last 24 Hours (Table) 10/02/24 22:58 Blood Culture - Preliminary Blood Assessment and Plan Assessment: Bilateral buttock/right greater than left ,early stage III pressure ulcers, with minimal eschar on left, present on admission. measurements as per nursing documentation. Unstageable pressure ulcers on right and left ankles and left heel, present on admission. Plan: Sacral/right and left buttocks apply Santyl daily followed by moist gauze and topped with the sacral border foam gauze. Bilateral ankles and left heel apply bordered foam dressings. Offloading boots to be worn at all times unless ambulating. The impression and plan of care has been dictated as directed. : I performed a history and examination of this patient, discussed the same with the dictator. I agree with the dictator's note ,documented as a scribe. Any additional findings or plans will be noted.
[2024-10-06] MEDS: COLLAGENASE 250 UNIT/GM OINTMENT 30 GM TUBE TOPICAL SCH (13:00)
--- NOTE | 2024-10-06 14:19 | P.PN ---
Subjective Progress Note Date: 10/06/24 Hospital course: Patient is a very pleasant 83-year-old male with past medical history of CVA with left-sided residual deficits, type II DM, CAD with stents placed, HTN, HLD, and previous DVT. He presented to the hospital on 10/02/2024 with complaints of nausea and intractable vomiting and was found to have altered mentation, fever, and cough. Upon arrival to our facility patient underwent evaluation in the emergency department. Vital signs upon arrival show blood pressure 132/58, heart rate 97, respiratory rate 16, temp 97.6 F, and SpO2 of 96% on 3 L EKG was completed showing normal sinus rhythm at 85 bpm with left ventricular hypertrophy. Chest x-ray completed showing patchy interstitial opacities bilaterally which could reflect atypical infectious etiology or mild pulmonary vascular congestion. CT abdomen and pelvis showing patchy lower lobe c onsolidation opacities with extensive mucous plugging suspicious for aspiration pneumonia, wall thickening of the cecum and ascending colon with mild adjacent mesenteric inflammation suggestive of infectious colitis given the extent of liquid colonic stools/diarrhea recommend outpatient direct visua lization/colonoscopy. Labs were completed and reviewed. CBC showing leukocytosis with WBC count of 14.5 and normocytic anemia with hemoglobin of 11.1. BMP showing sodium 146, chloride 109 and elevated renal function with BUN of 59, creatinine 1.58 and GFR 40 with baseline creatinine of 0.9. Urinalysis negative for infection positive for 1+ protein, trace ketones, and 7 WBCs. Influenza A, influenza B, RSV, and COVID PCR negative. Urine Legionella negative. Patient admitted under our services with consultation to pulmonology. Physical exam: Patient was seen and evaluated at bedside this morning. assistant professor of english at bedside feeding patient breakfast this morning. Patient tolerating well. He does report mild pain to right side and has slightly distended abdomen. Per RN and nursing admin at bedside patient has not had bowel movement in 3 to 4 days. On examination no significant point tenderness at McBurney site and negative León sign. Vital signs reviewed and stable. General: Nontoxic, no distress and appears stated age. Derm: Skin warm and dry, normal coloration for ethnicity. Pressure ulcers bilateral buttocks, sacral, bilateral ankles and left heel with dressings in place. Head: Atraumatic, normocephalic and symmetric. Eyes: EOM's intact, no lid lag, and anicteric sclera Mouth: no lip lesions, mucus membranes moist Cardiovascular: regular rate and rhythm with normal S1S2, no murmur, positive posterior tibial pulses bilaterally, and cap refill < 2 seconds. Lungs: Respirations even, regular, and unlabored on room air. Lungs slightly diminished at bases otherwise clear to auscultation with no noted wheezes, rhonchi, crackles, or rales. Abdominal: soft, nontender to palpation, no guarding, no appreciable organomegaly Ext: Left upper and lower extremity weakness, minimal movement of left foot and toes with left upper extremity flaccidity secondary to previous CVA. Neuro: Speech clear, face symmetrical and CN II-XII grossly intact with no noted focal neuro deficits Psych: Alert and oriented to person, place, time, and situation. Appropriate and pleasant affect. Assessment and Plan of Care: Acute hypoxic respiratory failure secondary to aspiration pneumonia -Initially requiring nasal cannula, which improved and pt is maintaining SpO2 in 90s on room air room air -Continue IV Unasyn to cover for aspiration pneumonia. -Maintain aspiration precautions with nectar thickened liquids and no straws. -Pulmonology following, reviewed documentation in chart. Infectious colitis Normocytic anemia Nausea and vomiting, intractable nausea and vomiting on arrival has resolved Transaminitis Acute kidney injury, likely secondary to dehydration on arrival has resolved. -On arrival CT revealing thickening of cecum and ascending colon with mild adjacent mesenteric inflammation suggestive of infectious colitis. -Per nursing patient initially had liquid stools but states no bowel movement in 4 days. -Order placed for KUB. -Once KUB film is reviewed, we will place additional orders as indicated at this time. Hypernatremia likely from lack of free water intake. Patient was placed on D5W infusion resulting in resolution of hypernatremia. Diabetes mellitus with hyperglycemia -Continue glycemic protocol with NovoLog sliding scale. CAD status post CABG CVA with left-sided residual deficits History of bilateral carotid artery stenosis Hypertension Hyperlipidemia -Continue daily medication regimen with aspirin 81 mg daily, amlodipine 10 mg daily, atorvastatin 40 mg nightly, carvedilol 3.125 mg twice daily, Plavix 75 mg daily, and losartan 50 mg daily. Pressure ulcers, present on admission -Pressure ulcers to sacral, bilateral buttock/right greater than left early stage III pressure ulcers, with minimal eschar on left and Unstageable pressure ulcers on right and left ankles and left heel. -Wound care following Data and imaging reviewed: -Vital signs reviewed. Blood pressure 170/75, heart rate 79, respiratory rate 20, temp 98.0 F, and SpO2 of 97% on room air. -Labs completed and reviewed. CBC showing leukocytosis with WBC count of 11.2 and normocytic anemia with hemoglobin of 9.4. BMP showing hypokalemia with potassium of 3.2 and elevated glucose of 243. Magnesium 1.9. CODE STATUS: Full code DVT prophylaxis: Lovenox Anticipated discharge date: Pending clinical course Anticipated discharge place: Home with home care Patient was seen independently by Nurse Pracitioner. This document was prepared using [employer] dictation software. Please allow for errors in flat cutter, while rare they do occur. Gerry Queen NP rendered care for this patient independently, reviewed the findings and plan as documented in the note above and agree with plan. I did not physically speak with or examine the patient on this date. Objective - Vital Signs Vital signs: Vital Signs Temp 98 F 10/06/24 07:00 Pulse 79 10/06/24 07:00 Resp 20 10/06/24 07:00 BP 170/75 10/06/24 07:00 Pulse Ox 97 10/06/24 07:00 FiO2 Intake & Output 10/05/24 10/06/24 10/06/24 18:59 06:59 18:59 Output Total 650 600 Balance -650 -600 Output: Urine 650 600 Other: Voiding Method Toilet Diaper Diaper External Catheter - Labs CBC & Chem 7: 10/06/24 14:45 10/06/24 14:45 Labs: Abnormal Lab Results - Last 24 Hours (Table) 10/05/24 10/05/24 10/05/24 Range/Units 11:45 16:46 17:48 Potassium 3.3 L (3.5-5.1) mmol/L Glucose 267 H (74-99) mg/dL POC Glucose (mg/dL) 288 H 253 H (70-110) mg/dL Calcium 8.1 L (8.4-10.2) mg/dL 10/05/24 10/06/24 Range/Units 23:54 06:07 Potassium (3.5-5.1) mmol/L Glucose (74-99) mg/dL POC Glucose (mg/dL) 271 H 253 H (70-110) mg/dL Calcium (8.4-10.2) mg/dL Microbiology - Last 24 Hours (Table) 10/02/24 22:58 Blood Culture - Preliminary Blood
--- NOTE | 2024-10-06 14:57 | XR ---
EXAMINATION TYPE: XR chest 1V portable DATE OF EXAM: 10/06/2024 COMPARISON: 10/03/2024 CLINICAL INDICATION: Male, 83 years old with history of pneumonia; TECHNIQUE: Single frontal view of the chest is obtained. FINDINGS: There is been prior CABG surgery. There are stable prominent interstitial markings particularly in the lung bases which could reflect c hronic interstitial changes, or interstitial pneumonia. There has been a decrease in the degree of op acification in the retrocardiac region which suggest presence of resolving acute inflammation. There is no pneumothorax or pleural effusion. The heart is not enlarged. The osseous structures are osteopenic and there are degenerative changes shoulders.. IMPRESSION: 1. Improving aeration in the left lung base. 2. Stable interstitial opacities predominantly in the lower lung zones as described above. 3. Findings suggest resolving left lower lobe pneumonia on background of chronic interstitial changes . [facility], , 10/06/2024 2:55 PM
--- NOTE | 2024-10-06 15:00 | XR ---
KUB. HISTORY: Abdominal distention and right-sided abdominal pain. COMPARISON: None TECHNIQUE: 2 supine portable views of the abdomen were obtained. FINDINGS: There is contrast throughout the colon from prior CT abdomen and pelvis with oral contrast. The bowel gas pattern is nonspecific. There is a mild amount of stool within the colon. There are no suspicious abdominal or pelvic calcifications. There is a partially consolidated opacity in the left lung base likely a pneumonic infiltrate. IMPRESSION: 1. Nonspecific abdomen. 2. Partially consolidative left lower lobe infiltrate likely pneumonia. Short-term follow-up kacie davidson. [facility], Workstation: [facility], 10/06/2024 2:58 PM
[2024-10-06 15:31] LABS: Hypochromasia Slight; MCH 30.5 pg (25.0-35.0); MCHC 31.4 g/dL (31.0-37.0); MCV 97.2 fL (80.0-100.0); Mean Platelet Volume 7.5; Platelet Count 246 k/uL (150-450); RBC 3.09 m/uL (4.30-5.90); RDW 13.1 % (11.5-15.5); WBC 11.2 k/uL (3.8-10.6)
[2024-10-06 15:33] LABS: HGB 9.4 gm/dL (13.0-17.5)
[2024-10-06 15:34] LABS: Anion Gap 9 mmol/L; Blood Urea Nitrogen 18 mg/dL (9-20); Carbon Dioxide 26 mmol/L (22-30); Chloride 105 mmol/L (98-107); Glucose 243 mg/dL (74-99); Potassium 3.2 mmol/L (3.5-5.1); Sodium 140 mmol/L (137-145)
[2024-10-06 15:35] LABS: ALT 113 U/L (4-49); AST 99 U/L (17-59); African American GFR (CKD) 80 (>60 ml/min/1.73 sqM); Albumin 2.5 g/dL (3.5-5.0); Alkaline Phosphatase 113 U/L (38-126); Calcium 7.7 mg/dL (8.4-10.2); Magnesium 1.9 mg/dL (1.6-2.3); Non-African American GFR(CKD) 69 (>60 ml/min/1.73 sqM); Total Bilirubin 0.3 mg/dL (0.2-1.3); Total Protein 5.7 g/dL (6.3-8.2)
[2024-10-06] MEDS: POTASSIUM CHLORIDE 10 MEQ in WATER FOR INJECTION 1 100ML.BAG IVPB SCH (16:43)
[2024-10-06 17:35] LABS: Glucose,Whole Blood 295 mg/dL (70-110)
[2024-10-07 00:09] LABS: Glucose,Whole Blood 218 mg/dL (70-110)
[2024-10-07] MEDS: AMPICILLIN-SULBACTAM 3 GM in SODIUM CHLORIDE 0.9% 100 ML IVPB SCH (05:20)
[2024-10-07 06:12] LABS: Glucose,Whole Blood 193 mg/dL (70-110)
[2024-10-07 08:36] LABS: HCT 31.8 % (39.6-50.0); HGB 10.2 g/dL (13.0-17.0); MCH 31.1 pg (27.0-32.0); MCHC 32.1 g/dL (32.0-37.0); Mean Platelet Volume 9.7 FL (9.5-12.2); NRBC Per 100 WBC 0 X 10*3/uL (0.00-0.01); Platelet Count 227 X 10*3/uL (140-440); RBC 3.28 X 10*6/uL (4.40-5.60); RDW 12.9 % (11.5-14.5); WBC 9.71 X 10*3/uL (4.50-10.00)
[2024-10-07 09:16] LABS: ALT 113 U/L (10-49); AST 70 U/L (14-35); Albumin 2.5 g/dL (3.8-4.9); Albumin/Globulin Ratio 0.81 Ratio (1.60-3.17); Alkaline Phosphatase 95 U/L (41-126); BUN/Creat Ratio 14.33 Ratio (12.00-20.00); Blood Urea Nitrogen 12.9 mg/dL (9.0-27.0); Calcium 7.7 mg/dL (8.7-10.3); Carbon Dioxide 25.9 mmol/L (21.6-31.8); Chloride 110 mmol/L (96-109); Globulin 3.1 g/dL (1.6-3.3); Glucose 188 mg/dL (70-110); Potassium 3.5 mmol/L (3.5-5.5); Sodium 145 mmol/L (135-145); Total Bilirubin 0.3 mg/dL (0.3-1.2); Total Protein 5.6 g/dL (6.2-8.2)
[2024-10-07] MEDS: polyethylene glycoL 3350 17 GM POWD.PACK PO STA (10:08)
[2024-10-07] MEDS: bisacodyL 10 MG SUPP RECTAL STA (10:34)
[2024-10-07 11:27] LABS: Glucose,Whole Blood 186 mg/dL (70-110)
[2024-10-07 17:20] LABS: Glucose,Whole Blood 200 mg/dL (70-110)
--- NOTE | 2024-10-07 18:30 | P.PN ---
Subjective Progress Note Date: 10/07/24 Hospital course: Patient is a very pleasant 83-year-old male with past medical history of CVA with left-sided residual deficits, type II DM, CAD with stents placed, HTN, HLD, and previous DVT. He presented to the hospital on 10/02/2024 with complaints of nausea and intractable vomiting and was found to have altered mentation, fever, and cough. Upon arrival to our facility patient underwent evaluation in the emergency department. Vital signs upon arrival show blood pressure 132/58, heart rate 97, respiratory rate 16, temp 97.6 F, and SpO2 of 96% on 3 L EKG was completed showing normal sinus rhythm at 85 bpm with left ventricular hypertrophy. Chest x-ray completed showing patchy interstitial opacities bilaterally which could reflect atypical infectious etiology or mild pulmonary vascular congestion. CT abdomen and pelvis showing patchy lower lobe c onsolidation opacities with extensive mucous plugging suspicious for aspiration pneumonia, wall thickening of the cecum and ascending colon with mild adjacent mesenteric inflammation suggestive of infectious colitis given the extent of liquid colonic stools/diarrhea recommend outpatient direct visua lization/colonoscopy. Labs were completed and reviewed. CBC showing leukocytosis with WBC count of 14.5 and normocytic anemia with hemoglobin of 11.1. BMP showing sodium 146, chloride 109 and elevated renal function with BUN of 59, creatinine 1.58 and GFR 40 with baseline creatinine of 0.9. Urinalysis negative for infection positive for 1+ protein, trace ketones, and 7 WBCs. Influenza A, influenza B, RSV, and COVID PCR negative. Urine Legionella negative. Patient admitted under our services with consultation to pulmonology. Physical exam: Patient was seen and evaluated at bedside this morning. Patient has yet to have bowel movement abdomen remains soft distended patient currently denying any pain or complaints at this time. Vital signs reviewed and stable. General: Nontoxic, no distress and appears stated age. Derm: Skin warm and dry, normal coloration for ethnicity. Pressure ulcers bilateral buttocks, sacral, bilateral ankles and left heel with dressings in place. Head: Atraumatic, normocephalic and symmetric. Eyes: EOM's intact, no lid lag, and anicteric sclera Mouth: no lip lesions, mucus membranes moist Cardiovascular: regular rate and rhythm with normal S1S2, no murmur, positive posterior tibial pulses bilaterally, and cap refill < 2 seconds. Lungs: Respirations even, regular, and unlabored on room air. Lungs slightly diminished at bases otherwise clear to auscultation with no noted wheezes, rhonchi, crackles, or rales. Abdominal: soft, nontender to palpation, no guarding, no appreciable organomegaly Ext: Left upper and lower extremity weakness, minimal movement of left foot and toes with left upper extremity flaccidity secondary to previous CVA. Neuro: Speech clear, face symmetrical and CN II-XII grossly intact with no noted focal neuro deficits Psych: Alert and oriented to person, place, time, and situation. Appropriate and pleasant affect. Assessment and Plan of Care: Acute hypoxic respiratory failure secondary to aspiration pneumonia -Initially requiring nasal cannula, which improved and pt is maintaining SpO2 in 90s on room air room air -Repeat chest x-ray completed 10/06/2024 showing improving aeration of the left lung base with stable interstitial opacities predominantly in the lower lung zones findings suggestive of resolving left lower lobe pneumonia on background of chronic interstitial changes. -Continue IV Unasyn to cover for aspiration pneumonia. -Maintain aspiration precautions with nectar thickened liquids and no straws. -Pulmonology following, reviewed documentation in chart. Infectious colitis Normocytic anemia Nausea and vomiting, intractable nausea and vomiting on arrival has resolved Transaminitis Acute kidney injury, likely secondary to dehydration on arrival has resolved. -On arrival CT revealing thickening of cecum and ascending colon with mild adjacent mesenteric inflammation suggestive of infectious colitis. -KUB showing moderate fecal retention throughout ascending, transverse, and descending colon, contrast dye appears to have passed throughout. -Order placed for MiraLAX 17 g daily and Dulcolax suppository patient has repo rtedly not had a bowel movement in 4 to 5 days. Will monitor for resolution and place additional orders if indicated based upon results. Hypernatremia likely from lack of free water intake. Patient was placed on D5W infusion resulting in resolution of hypernatremia and IV fluid discontinued. Diabetes mellitus with hyperglycemia -Continue glycemic protocol with NovoLog sliding scale. CAD status post CABG CVA with left-sided residual deficits History of bilateral carotid artery stenosis Hypertension Hyperlipidemia -Continue daily medication regimen with aspirin 81 mg daily, amlodipine 10 mg daily, atorvastatin 40 mg nightly, carvedilol 3.125 mg twice daily, Plavix 75 mg daily, and losartan 50 mg daily. Pressure ulcers, present on admission -Pressure ulcers to sacral, bilateral buttock/right greater than left early stage III pressure ulcers, with minimal eschar on left and Unstageable pressure ulcers on right and left ankles and left heel. -Wound care following Data and imaging reviewed: -Vital signs reviewed. Blood pressure 157/62, heart rate 65, respiratory rate 18, temp 98.1 F, and SpO2 of 94% on room air. -Labs completed and reviewed. CBC showing stable normocytic anemia with hemoglobin of 10.2. BMP showing hyperchloremia with chloride of 110. Blood glucose 188. Magnesium 2.0. Liver profile showing elevated AST of 70 and ALT of 113. Albumin low at 2.5. CODE STATUS: Full code DVT prophylaxis: Lovenox Anticipated discharge date: Pending clinical course, likely in the next 24 to 48 hours pending bowel function. Anticipated discharge place: Home with home care Patient was seen independently by Nurse Pracitioner. This document was prepared using [employer] dictation software. Please allow for errors in insulation cupola charger, while rare they do occur. Gerry Queen NP rendered care for this patient independently, reviewed the findings and plan as documented in the note above and agree with plan. I did not physically speak with or examine the patient on this date. Objective - Vital Signs Vital signs: Vital Signs Temp 98.1 F 10/07/24 07:00 Pulse 65 10/07/24 07:00 Resp 18 10/07/24 07:00 BP 157/62 10/07/24 07:00 Pulse Ox 94 L 10/07/24 07:00 FiO2 Intake & Output 10/06/24 10/07/24 10/07/24 18:59 06:59 18:59 Output Total 750 Balance -750 Output: Urine 750 Other: Voiding Method Diaper Diaper External Catheter External Catheter # Voids 1 - Labs CBC & Chem 7: 10/07/24 03:44 10/07/24 03:44 Labs: Abnormal Lab Results - Last 24 Hours (Table) 10/06/24 10/06/24 10/06/24 Range/Units 11:26 14:45 14:45 WBC 11.2 H (3.8-10.6) k/uL RBC 3.09 L (4.30-5.90) m/uL Hgb 9.4 L D (13.0-17.5) gm/dL Hct 30.0 L (39.0-53.0) % Potassium 3.2 L (3.5-5.1) mmol/L Glucose 243 H (74-99) mg/dL POC Glucose (mg/dL) 247 H (70-110) mg/dL Calcium 7.7 L (8.4-10.2) mg/dL AST 99 H (17-59) U/L ALT 113 H (4-49) U/L Total Protein 5.7 L (6.3-8.2) g/dL Albumin 2.5 L (3.5-5.0) g/dL 10/06/24 10/07/24 10/07/24 Range/Units 17:33 00:07 03:44 WBC (3.8-10.6) k/uL RBC 3.28 L (4.30-5.90) m/uL Hgb 10.2 L (13.0-17.5) gm/dL Hct 31.8 L (39.0-53.0) % Potassium (3.5-5.1) mmol/L Glucose (74-99) mg/dL POC Glucose (mg/dL) 295 H 218 H (70-110) mg/dL Calcium (8.4-10.2) mg/dL AST (17-59) U/L ALT (4-49) U/L Total Protein (6.3-8.2) g/dL Albumin (3.5-5.0) g/dL 10/07/24 Range/Units 06:10 WBC (3.8-10.6) k/uL RBC (4.30-5.90) m/uL Hgb (13.0-17.5) gm/dL Hct (39.0-53.0) % Potassium (3.5-5.1) mmol/L Glucose (74-99) mg/dL POC Glucose (mg/dL) 193 H (70-110) mg/dL Calcium (8.4-10.2) mg/dL AST (17-59) U/L ALT (4-49) U/L Total Protein (6.3-8.2) g/dL Albumin (3.5-5.0) g/dL Microbiology - Last 24 Hours (Table) 10/02/24 22:58 Blood Culture - Preliminary Blood
--- NOTE | 2024-10-07 20:03 | P.PN ---
Subjective Progress Note Date: 10/07/24 Patient is an 83-year-old male with past medical history significant for hypertension, hyperlipidemia, diabetes mellitus, DVT, coronary artery disease status post two-vessel CABG, CVA with residual left-sided hemiparesis. Patient reportedly brought into the emergency department last night with chief complaint of abdominal pain and intermittent episodes of nausea/vomiting. Patient is a poor historian, he believes he is at home and the year is 1974. I am unsure of his baseline mentation. No family present. Information obtained from chart review and bedside nurse. Apparently, patient has a caregiver. He has been intermittently febrile for approximately 1 week with associated nausea and vomiting, mostly food products. He has had a congested cough. Workup in the emergency department included an abdominal/pelvis CT demonstrating wall thickening of the cecum and ascending colon with mild adjacent mesenteric inflammation suggestive of infectious colitis. Also, patchy left lower lobe consolidative opacities and extensive mucous plugging, suspicious for aspiration pneumonia. Chest x-ray showing patchy interstitial opacities bilaterally. CBC done on admission: WBC count 14.5, hemoglobin 11.1, hematocrit 34.6, platelets 255. CMP: Sodium 146, potassium 4.1, chloride 109, serum bicarb 24, BUN 59, creatinine 1.58, glucose 247. AST 167, ALT 139, ALP 121. Total bilirubin 0.5. Amylase 80, lipase 49. Viral screen negative for influenza, RSV, COVID. Patient has been started on Unasyn for empiric antibiotic coverage. Pulmonary consult was placed for aspiration pneumonia. Patient is currently being evaluated in the emergency department, room 23. He is confused and oriented to self only. Does follow simple commands. Left-sided hemiparesis noted. Abdomen is firm, but nontender to palpation. Currently on room air oxygen. No acute respiratory distress. He has a weak congested cough. Normal saline infusing at 100 mL/h. Current vital signs: Temperature 98.7 F, heart rate 74 bpm, blood pressure 130/49 mmHg, SpO2 is reading 93% on bedside monitor, on room air. 10/04/2024, the patient is being seen for a follow-up. He is currently on room air oxygen with a pulse ox of 93%. No significant respiratory distress. Minimal cough and congestion. Swallow evaluation was performed today and results are still pending. Meanwhile, the patient is still on IV Unasyn. No significant nausea or emesis this morning. White cell count of 9.2 with a hemoglobin 10.7 and a platelet count of 259. Sodium is at 151 potassium is at 3.8, chloride is at 115, BUN is 39 with a creatinine of 1.03. The blood culture is still negative. Noted the patient has had a previous history of stroke. Concern towards ongoing dysphagia. Apparently patient has been having coughing spells with food intake. 10/05/2024, the patient is clinically stable. He is having purely diet. No emesis. No coughing no significant sputum production. He is on D5 water and the sodium level is down to 148. Chloride is down to 109. BUN is 22 with a creatinine of 0.8. The white cell count is at 11.7 with a hemoglobin of 11.6. Remains on IV Unasyn. Remains on room air oxygen. No signs of any significant respiratory distress. No reported aspiration. 10/06/2024, the patient remains on room air oxygen. He remains on IV Unasyn. No respiratory distress. He is taking honey nectar thickened oral material and is able to tolerate it well. Denies having any nausea or emesis. His last bowel movement was 2 days ago. Abdomen is nondistended. Remains on IV Unasyn. Remains on Lovenox for DVT prophylaxis. Labs from today are still pending. Labs from yesterday were all stable. No significant leukocytosis. Renal function remains stable. No other significant events overnight. 10/07/2024, the patient is on room air oxygen. Did have a small bowel movement activity yesterday. Otherwise, doing well without any significant complaints. Remains on IV Unasyn. Follow-up chest x-ray from yesterday showed improvement in the lower lobe consolidation. Patient denies having any significant respira tory distress. Meanwhile, he was hyponatremic and sodium level improved and is currently down to 145 and a BUN of 12 with a creatinine of 0.9. The white cell count is at 9.7 with a hemoglobin of 10.2. Remains on IV Unasyn. Lovenox for DVT prophylaxis. Rest of medications remain unchanged. Objective - Vital Signs Vital signs: Vital Signs Temp 98.0 F 10/07/24 13:33 Pulse 72 10/07/24 13:33 Resp 20 10/07/24 13:33 BP 148/57 10/07/24 13:33 Pulse Ox 94 L 10/07/24 13:33 FiO2 Intake & Output 10/06/24 10/07/24 10/07/24 18:59 06:59 18:59 Output Total 750 Balance -750 Weight 60.781 kg Output: Urine 750 Other: Voiding Method Diaper Diaper Diaper External Catheter External Catheter External Catheter # Voids 1 # Bowel Movements 1 - Exam GENERAL EXAM: Alert, 83-year-old white male, laying supine, fairly comfortable in no apparent distress. HEAD: Normocephalic and atraumatic EYES: Normal reaction of pupils, equal size. NOSE: Clear with pink turbinates. THROAT: No erythema or exudates. Dry mucous membranes. NECK: No masses, no JVD. CHEST: No chest wall deformity. LUNGS: Equal air entry with n left lower lobe inspiratory crackles. On room air. SpO2 reading 93% on bedside monitor. No conversational dyspnea or accessory muscle use. Has a weak congested cough. CVS: S1 and S2 normal with no audible murmur, regular rhythm. No extra heart sounds ABDOMEN: Abdomen appears distended, active bowel sounds, firm to palpation, no significant guarding or rigidity, no organomegaly. SPINE: No scoliosis or deformity SKIN: No rashes CENTRAL NERVOUS SYSTEM: Alert, oriented to self. Left-sided facial droop. Left-sided hemiparesis noted. Right-sided upper and lower extremity strength grade 4/5. EXTREMITIES: There is no peripheral edema, clubbing, or cyanosis. Peripheral pulses are intact. - Labs CBC & Chem 7: 10/07/24 03:44 10/07/24 03:44 Labs: Abnormal Lab Results - Last 24 Hours (Table) 10/06/24 10/07/24 10/07/24 Range/Units 17:33 00:07 03:44 RBC 3.28 L (4.40-5.60) X 10*6/uL Hgb 10.2 L (13.0-17.0) g/dL Hct 31.8 L (39.6-50.0) % Chloride (96-109) mmol/L Glucose (70-110) mg/dL POC Glucose (mg/dL) 295 H 218 H (70-110) mg/dL Calcium (8.7-10.3) mg/dL AST (14-35) U/L ALT (10-49) U/L Total Protein (6.2-8.2) g/dL Albumin (3.8-4.9) g/dL Albumin/Globulin Ratio (1.60-3.17) Ratio 10/07/24 10/07/24 10/07/24 Range/Units 03:44 06:10 11:26 RBC (4.40-5.60) X 10*6/uL Hgb (13.0-17.0) g/dL Hct (39.6-50.0) % Chloride 110 H (96-109) mmol/L Glucose 188 H (70-110) mg/dL POC Glucose (mg/dL) 193 H 186 H (70-110) mg/dL Calcium 7.7 L (8.7-10.3) mg/dL AST 70 H (14-35) U/L ALT 113 H (10-49) U/L Total Protein 5.6 L (6.2-8.2) g/dL Albumin 2.5 L (3.8-4.9) g/dL Albumin/Globulin Ratio 0.81 L (1.60-3.17) Ratio Microbiology - Last 24 Hours (Table) 10/02/24 22:58 Blood Culture - Preliminary Blood Assessment and Plan Assessment: aspiration pneumonia, chest x-ray continues to show overall unchanged patchy interstitial bibasilar opacities. Awaiting the results of the swallow evaluation. The patient is currently on room air oxygen. The patient is currently on IV Unasyn. Clinically stable. Follow-up chest x-ray from 10/06/2024 shows improvement in lower lobe pulmonary infiltrate and the patient remains on room air oxygen. Acute hypoxemic respiratory failure, currently on room air oxygen Infectious colitis, abdominal/pelvis CT demonstrating wall thickening of the cecum and ascending colon with mild adjacent mesenteric inflammation suggestive of infectious colitis. Also, patchy left lower lobe consolidative opacities and extensive mucous plugging, suspicious for aspiration pneumonia. Currently tolerating pured diet Nausea and vomiting, improved Acute leukocytosis, improved Acute kidney injury, improving Transaminitis, improving Hypochloremic hypernatremia, improved Hypertension History of hyperlipidemia Diabetes mellitus type 2 History of coronary disease status post two-vessel CABG History of CVA with residual left-sided hemiparesis History of bilateral carotid artery stenosis. CT angio done August, demonstrating approximately 7080% stenosis of the left proximal ICA, as well as, 60 to 70% stenosis of the proximal right ICA. Plan: Remains on room air oxygen repeat chest x-ray from 10/06/2024 showed improvement Monitor bowel movement activity, had a bowel movement yesterday d Advance diet as tolerated currently on pured diet Patient stable on room air oxygen Maintain aspiration precautions Completed the swallow evaluation Continue empiric antibiotics, the patient is currently on IV Unasyn. DVT prophylaxis: Lovenox We will continue to follow
[2024-10-07 22:25] LABS: Glucose,Whole Blood 201 mg/dL (70-110)
[2024-10-08] MEDS: ACETAMINOPHEN TAB 325 MG TAB PO PRN (02:09)
[2024-10-08] MEDS ORDERED: DEXTROSE 50% SYRINGE 50 ML IVP PRN ×2 (02:18)
[2024-10-08 06:21] LABS: Glucose,Whole Blood 223 mg/dL (70-110)
[2024-10-08] MEDS: INSULIN ASPART (NovoLOG) 100 UNIT/ML VIAL SQ SCH (06:49)
--- NOTE | 2024-10-08 10:53 | P.PN ---
Subjective Progress Note Date: 10/08/24 Subjective: Patient seen and examined at bedside. No acute events overnight. Having hallucinations, seeing "cat" in the room Pertinent positives and negatives as discussed above, a complete review of systems was performed and all other systems are negative. Vitals Signs Reviewed. General: Nontoxic, no distress, appears at stated age Derm: Warm, dry, pressure ulcers covered in dressing Head: Atraumatic, normocephalic, symmetric Eyes: EOMI, no lid lag, anicteric sclera Mouth: No lip lesion, mucus membranes moist Cardiovascular: S1S2 reg, no murmur Lungs: CTA bilateral, no rhonchi, no rales, no accessory muscle use Abdominal: Soft, nontender to palpation, no guarding, no appreciable organomegaly Ext: No gross muscle atrophy, no edema, no contractures Neuro: CN II-XI grossly intact, left upper and lower extremity strength 1/5 Psych: Alert, oriented x 2, appropriate affect Data Reviewed Today: Pertinent Labs: Blood sugars range between 1 86-2 23 Imaging: No new imaging Assessment and Plan: Active: Acute encephalopathy -Likely delirium -Delirium precautions -Do a bladder scan -CBC and CMP ordered Acute hypoxic respiratory failure, resolved Aspiration pneumonia -Pulmonology following -Continue IV Unasyn 3 g every 6 hours -Aspiration precautions, nectar thick liquids, pured diet Infectious colitis Constipation, resolved -Continue IV Unasyn as above -Now having bowel movements -Continue scheduled MiraLAX 17 g daily for now Transaminitis, resolving -Repeat CMP tomorrow Normocytic anemia -No active bleeding -Continue to monitor Type 2 diabetes, A1c 6.6 Hyperglycemia -Sliding scale insulin, monitor for hypoglycemia -Consider adding Levemir Pressure ulcers, present on admission -Wound care following Resolved: Hypernatremia LALA Hypokalemia Chronic: Hypertension History of CVA with left-sided deficits CAD status post CABG History of bilateral carotid artery stenosis Dyslipidemia GERD DVT ppx: Lovenox Code status: Full code Anticipated discharge place: Pending clinical course Anticipated discharge time: Pending clinical course Objective - Vital Signs Vital signs: Vital Signs Temp 97.5 F L 10/08/24 06:53 Pulse 64 10/08/24 06:53 Resp 16 10/08/24 06:53 BP 157/56 10/08/24 06:53 Pulse Ox 96 10/08/24 06:53 FiO2 Intake & Output 10/07/24 10/08/24 10/08/24 18:59 06:59 18:59 Intake Total 480 Output Total 900 800 Balance -900 -320 Weight 60.781 kg Intake: Oral 480 Output: Urine 900 800 Other: Voiding Method Diaper External Catheter External Catheter # Voids 3 1 # Bowel Movements 1 4 1 - Labs CBC & Chem 7: 10/07/24 03:44 10/07/24 03:44 Labs: Abnormal Lab Results - Last 24 Hours (Table) 10/07/24 10/07/24 10/07/24 Range/Units 11:26 17:19 22:23 POC Glucose (mg/dL) 186 H 200 H 201 H (70-110) mg/dL 10/08/24 Range/Units 06:20 POC Glucose (mg/dL) 223 H (70-110) mg/dL
[2024-10-08 11:36] LABS: Glucose,Whole Blood 282 mg/dL (70-110)
[2024-10-08] MEDS: polyethylene glycoL 3350 17 GM POWD.PACK PO SCH (12:01)
[2024-10-08 12:38] LABS: Basophils % (A) 1 %; Eosinophils # (A) 0.3 k/uL (0-0.7); Eosinophils % (A) 3 %; HCT 30.3 % (39.0-53.0); HGB 10.2 gm/dL (13.0-17.5); Lymphocytes # (A) 0.8 k/uL (1.0-4.8); Lymphocytes % (A) 8 %; MCHC 33.7 g/dL (31.0-37.0); MCV 95.1 fL (80.0-100.0); Monocytes # (A) 0.3 k/uL (0-1.0); Monocytes % (A) 3 %; Neutrophils # (A) 7.5 k/uL (1.3-7.7); Neutrophils % (A) 83 %; Platelet Count 258 k/uL (150-450); RBC 3.19 m/uL (4.30-5.90); RDW 13.6 % (11.5-15.5); WBC 9.1 k/uL (3.8-10.6)
[2024-10-08 12:47] LABS: ALT 105 U/L (4-49); AST 75 U/L (17-59); African American GFR (CKD) 89 (>60 ml/min/1.73 sqM); Albumin 2.6 g/dL (3.5-5.0); Albumin/Globulin Ratio 0.8; Alkaline Phosphatase 121 U/L (38-126); Anion Gap 7 mmol/L; Blood Urea Nitrogen 13 mg/dL (9-20); Carbon Dioxide 27 mmol/L (22-30); Chloride 109 mmol/L (98-107); Globulin 3.2 g/dL; Glucose 274 mg/dL (74-99); Non-African American GFR(CKD) 77 (>60 ml/min/1.73 sqM); Potassium 3.8 mmol/L (3.5-5.1); Sodium 143 mmol/L (137-145); Total Bilirubin 0.3 mg/dL (0.2-1.3); Total Protein 5.8 g/dL (6.3-8.2)
--- NOTE | 2024-10-08 14:32 | P.PN ---
Subjective Progress Note Date: 10/08/24 Patient is an 83-year-old male with past medical history significant for hypertension, hyperlipidemia, diabetes mellitus, DVT, coronary artery disease status post two-vessel CABG, CVA with residual left-sided hemiparesis. Patient reportedly brought into the emergency department last night with chief complaint of abdominal pain and intermittent episodes of nausea/vomiting. Patient is a poor historian, he believes he is at home and the year is 1974. I am unsure of his baseline mentation. No family present. Information obtained from chart review and bedside nurse. Apparently, patient has a caregiver. He has been intermittently febrile for approximately 1 week with associated nausea and vomiting, mostly food products. He has had a congested cough. Workup in the emergency department included an abdominal/pelvis CT demonstrating wall thickening of the cecum and ascending colon with mild adjacent mesenteric inflammation suggestive of infectious colitis. Also, patchy left lower lobe consolidative opacities and extensive mucous plugging, suspicious for aspiration pneumonia. Chest x-ray showing patchy interstitial opacities bilaterally. CBC done on admission: WBC count 14.5, hemoglobin 11.1, hematocrit 34.6, platelets 255. CMP: Sodium 146, potassium 4.1, chloride 109, serum bicarb 24, BUN 59, creatinine 1.58, glucose 247. AST 167, ALT 139, ALP 121. Total bilirubin 0.5. Amylase 80, lipase 49. Viral screen negative for influenza, RSV, COVID. Patient has been started on Unasyn for empiric antibiotic coverage. Pulmonary consult was placed for aspiration pneumonia. Patient is currently being evaluated in the emergency department, room 23. He is confused and oriented to self only. Does follow simple commands. Left-sided hemiparesis noted. Abdomen is firm, but nontender to palpation. Currently on room air oxygen. No acute respiratory distress. He has a weak congested cough. Normal saline infusing at 100 mL/h. Current vital signs: Temperature 98.7 F, heart rate 74 bpm, blood pressure 130/49 mmHg, SpO2 is reading 93% on bedside monitor, on room air. 10/04/2024, the patient is being seen for a follow-up. He is currently on room air oxygen with a pulse ox of 93%. No significant respiratory distress. Minimal cough and congestion. Swallow evaluation was performed today and results are still pending. Meanwhile, the patient is still on IV Unasyn. No significant nausea or emesis this morning. White cell count of 9.2 with a hemoglobin 10.7 and a platelet count of 259. Sodium is at 151 potassium is at 3.8, chloride is at 115, BUN is 39 with a creatinine of 1.03. The blood culture is still negative. Noted the patient has had a previous history of stroke. Concern towards ongoing dysphagia. Apparently patient has been having coughing spells with food intake. 10/05/2024, the patient is clinically stable. He is having purely diet. No emesis. No coughing no significant sputum production. He is on D5 water and the sodium level is down to 148. Chloride is down to 109. BUN is 22 with a creatinine of 0.8. The white cell count is at 11.7 with a hemoglobin of 11.6. Remains on IV Unasyn. Remains on room air oxygen. No signs of any significant respiratory distress. No reported aspiration. 10/06/2024, the patient remains on room air oxygen. He remains on IV Unasyn. No respiratory distress. He is taking honey nectar thickened oral material and is able to tolerate it well. Denies having any nausea or emesis. His last bowel movement was 2 days ago. Abdomen is nondistended. Remains on IV Unasyn. Remains on Lovenox for DVT prophylaxis. Labs from today are still pending. Labs from yesterday were all stable. No significant leukocytosis. Renal function remains stable. No other significant events overnight. 10/07/2024, the patient is on room air oxygen. Did have a small bowel movement activity yesterday. Otherwise, doing well without any significant complaints. Remains on IV Unasyn. Follow-up chest x-ray from yesterday showed improvement in the lower lobe consolidation. Patient denies having any significant respira tory distress. Meanwhile, he was hyponatremic and sodium level improved and is currently down to 145 and a BUN of 12 with a creatinine of 0.9. The white cell count is at 9.7 with a hemoglobin of 10.2. Remains on IV Unasyn. Lovenox for DVT prophylaxis. Rest of medications remain unchanged. 10/08/2024, the patient is resting comfortably in bed. No reported aspiration. Afebrile. Remains on room air oxygen. Remains on IV Unasyn. Blood cultures been negative. The patient is having some occasional hallucinations, visual. Able to communicate. No nausea. No emesis. Having bowel movements and currently on MiraLAX. White cell count is at 9.1, hemoglobin 10.2 and a platelet count of 258. Electrolytes are normal, BUN 13 with a creatinine of 0.9. Objective - Vital Signs Vital signs: Vital Signs Temp 97.5 F L 10/08/24 06:53 Pulse 64 10/08/24 06:53 Resp 16 10/08/24 06:53 BP 157/56 10/08/24 06:53 Pulse Ox 96 10/08/24 06:53 FiO2 Intake & Output 10/07/24 10/08/24 10/08/24 18:59 06:59 18:59 Intake Total 480 Output Total 900 800 Balance -900 -320 Weight 60.781 kg Intake: Oral 480 Output: Urine 900 800 Other: Voiding Method Diaper External Catheter External Catheter # Voids 3 1 # Bowel Movements 1 4 1 - Exam GENERAL EXAM: Alert, 83-year-old white male, laying supine, fairly comfortable in no apparent distress. HEAD: Normocephalic and atraumatic EYES: Normal reaction of pupils, equal size. NOSE: Clear with pink turbinates. THROAT: No erythema or exudates. Dry mucous membranes. NECK: No masses, no JVD. CHEST: No chest wall deformity. LUNGS: Equal air entry with n left lower lobe inspiratory crackles. On room air. SpO2 reading 93% on bedside monitor. No conversational dyspnea or accessory muscle use. Has a weak congested cough. CVS: S1 and S2 normal with no audible murmur, regular rhythm. No extra heart sounds ABDOMEN: Abdomen appears distended, active bowel sounds, firm to palpation, no significant guarding or rigidity, no organomegaly. SPINE: No scoliosis or deformity SKIN: No rashes CENTRAL NERVOUS SYSTEM: Alert, oriented to self. Left-sided facial droop. Left-sided hemiparesis noted. Right-sided upper and lower extremity strength grade 4/5. EXTREMITIES: There is no peripheral edema, clubbing, or cyanosis. Peripheral pulses are intact. - Labs CBC & Chem 7: 10/08/24 11:58 10/08/24 11:58 Labs: Abnormal Lab Results - Last 24 Hours (Table) 10/07/24 10/07/24 10/08/24 Range/Units 17:19 22:23 06:20 POC Glucose (mg/dL) 200 H 201 H 223 H (70-110) mg/dL 10/08/24 Range/Units 11:34 POC Glucose (mg/dL) 282 H (70-110) mg/dL Assessment and Plan Assessment: aspiration pneumonia, chest x-ray continues to show overall unchanged patchy interstitial bibasilar opacities. Awaiting the results of the swallow evaluation. The patient is currently on room air oxygen. The patient is currently on IV Unasyn. Clinically stable. Follow-up chest x-ray from 10/06/2024 shows improvement in lower lobe pulmonary infiltrate and the patient remains on room air oxygen. Acute hypoxemic respiratory failure, currently on room air oxygen Infectious colitis, abdominal/pelvis CT demonstrating wall thickening of the cecum and ascending colon with mild adjacent mesenteric inflammation suggestive of infectious colitis. Also, patchy left lower lobe consolidative opacities and extensive mucous plugging, suspicious for aspiration pneumonia. Currently tolerating pured diet Nausea and vomiting, improved Acute leukocytosis, improved Acute kidney injury, improving Transaminitis, improving Hypochloremic hypernatremia, improved Hypertension History of hyperlipidemia Diabetes mellitus type 2 History of coronary disease status post two-vessel CABG History of CVA with residual left-sided hemiparesis History of bilateral carotid artery stenosis. CT angio done August, demonstrating approximately 7080% stenosis of the left proximal ICA, as well as, 60 to 70% stenosis of the proximal right ICA. Plan: Remains on room air oxygen repeat chest x-ray from 10/06/2024 showed improvement Monitor bowel movement activity, currently on MiraLAX Advance diet as tolerated currently on pured diet Patient stable on room air oxygen Maintain aspiration precautions Completed the swallow evaluation Continue empiric antibiotics, the patient is currently on IV Unasyn. DVT prophylaxis: Lovenox We will continue to follow
[2024-10-08 16:34] LABS: Glucose,Whole Blood 189 mg/dL (70-110)
[2024-10-08 20:48] LABS: Glucose,Whole Blood 249 mg/dL (70-110)
[2024-10-09 00:22] LABS: Glucose,Whole Blood 209 mg/dL (70-110)
[2024-10-09 04:40] LABS: ALT 89 U/L (4-49); AST 48 U/L (17-59); African American GFR (CKD) >90 (>60 ml/min/1.73 sqM); Albumin 2.8 g/dL (3.5-5.0); Albumin/Globulin Ratio 0.8; Alkaline Phosphatase 121 U/L (38-126); Anion Gap 7 mmol/L; Blood Urea Nitrogen 11 mg/dL (9-20); Calcium 8.1 mg/dL (8.4-10.2); Carbon Dioxide 28 mmol/L (22-30); Chloride 108 mmol/L (98-107); Globulin 3.5 g/dL; Glucose 186 mg/dL (74-99); Magnesium 2.3 mg/dL (1.6-2.3); Non-African American GFR(CKD) 80 (>60 ml/min/1.73 sqM); Potassium 3.9 mmol/L (3.5-5.1); Sodium 143 mmol/L (137-145); Total Bilirubin 0.5 mg/dL (0.2-1.3); Total Protein 6.3 g/dL (6.3-8.2)
[2024-10-09 06:36] LABS: Glucose,Whole Blood 183 mg/dL (70-110)
--- NOTE | 2024-10-09 10:40 | P.PN ---
Subjective Progress Note Date: 10/09/24 Subjective: Patient seen and examined at bedside. No acute events overnight. Continues to be pleasantly confused Pertinent positives and negatives as discussed above, a complete review of syst ems was performed and all other systems are negative. Vitals Signs Reviewed. General: Nontoxic, no distress, appears at stated age Derm: Warm, dry, pressure ulcers covered in dressing Head: Atraumatic, normocephalic, symmetric Eyes: EOMI, no lid lag, anicteric sclera Mouth: No lip lesion, mucus membranes moist Cardiovascular: S1S2 reg, no murmur Lungs: CTA bilateral, no rhonchi, no rales, no accessory muscle use Abdominal: Soft, nontender to palpation, no guarding, no appreciable organomegal y Ext: No gross muscle atrophy, no edema, no contractures Neuro: CN II-XI grossly intact, left upper and lower extremity strength 1/5 Psych: Alert, oriented x 2, appropriate affect Data Reviewed Today: Pertinent Labs: Sodium 143, creatinine 0.88, blood sugars range between 1 83-2 09, magnesium 2.3, AST 48, ALT 89, ALP 121 Imaging: No new imaging Assessment and Plan: Active: Acute encephalopathy Acute hypoactive delirium -Delirium precautions -Bladder scan did not show any retention -Patient now having bowel movements -Will schedule Tylenol 1000 mg 3 times daily, as pain could be possible reason for delirium Acute hypoxic respiratory failure, resolved Aspiration pneumonia -Pulmonology following -Continue IV Unasyn 3 g every 6 hours -Aspiration precautions, nectar thick liquids, pured diet Infectious colitis Constipation, resolved -Continue IV Unasyn as above -Now having bowel movements -Continue scheduled MiraLAX 17 g daily for now Transaminitis, resolving -Repeat CMP tomorrow Normocytic anemia -No active bleeding -Continue to monitor Type 2 diabetes, A1c 6.6 Hyperglycemia -Sliding scale insulin, monitor for hypoglycemia -Consider adding Levemir Pressure ulcers, present on admission -Wound care following Resolved: Hypernatremia LALA Hypokalemia Chronic: Hypertension History of CVA with left-sided deficits CAD status post CABG History of bilateral carotid artery stenosis Dyslipidemia GERD DVT ppx: Lovenox Code status: Full code Anticipated discharge place: Pending clinical course Anticipated discharge time: Pending clinical course Objective - Vital Signs Vital signs: Vital Signs Temp 97.7 F 10/09/24 07:04 Pulse 70 10/09/24 07:04 Resp 14 10/09/24 07:04 BP 179/66 10/09/24 07:04 Pulse Ox 97 10/09/24 07:04 FiO2 Intake & Output 10/08/24 10/09/24 10/09/24 18:59 06:59 18:59 Intake Total 116 Balance 116 Intake: Oral 116 Other: Voiding Method Diaper # Voids 1 3 # Bowel Movements 1 2 - Labs CBC & Chem 7: 10/08/24 11:58 10/09/24 03:46 Labs: Abnormal Lab Results - Last 24 Hours (Table) 10/08/24 10/08/24 10/08/24 Range/Units 11:34 11:58 11:58 RBC 3.19 L (4.30-5.90) m/uL Hgb 10.2 L (13.0-17.5) gm/dL Hct 30.3 L (39.0-53.0) % Lymphocytes # 0.8 L (1.0-4.8) k/uL Chloride 109 H (98-107) mmol/L Glucose 274 H (74-99) mg/dL POC Glucose (mg/dL) 282 H (70-110) mg/dL Calcium 8.0 L (8.4-10.2) mg/dL AST 75 H (17-59) U/L ALT 105 H (4-49) U/L Total Protein 5.8 L (6.3-8.2) g/dL Albumin 2.6 L (3.5-5.0) g/dL 10/08/24 10/08/24 10/09/24 Range/Units 16:32 20:46 00:09 RBC (4.30-5.90) m/uL Hgb (13.0-17.5) gm/dL Hct (39.0-53.0) % Lymphocytes # (1.0-4.8) k/uL Chloride (98-107) mmol/L Glucose (74-99) mg/dL POC Glucose (mg/dL) 189 H 249 H 209 H (70-110) mg/dL Calcium (8.4-10.2) mg/dL AST (17-59) U/L ALT (4-49) U/L Total Protein (6.3-8.2) g/dL Albumin (3.5-5.0) g/dL 10/09/24 10/09/24 Range/Units 03:46 06:33 RBC (4.30-5.90) m/uL Hgb (13.0-17.5) gm/dL Hct (39.0-53.0) % Lymphocytes # (1.0-4.8) k/uL Chloride 108 H (98-107) mmol/L Glucose 186 H (74-99) mg/dL POC Glucose (mg/dL) 183 H (70-110) mg/dL Calcium 8.1 L (8.4-10.2) mg/dL AST (17-59) U/L ALT 89 H (4-49) U/L Total Protein (6.3-8.2) g/dL Albumin 2.8 L (3.5-5.0) g/dL Microbiology - Last 24 Hours (Table) 10/02/24 22:58 Blood Culture - Final Blood
[2024-10-09] MEDS: ACETAMINOPHEN TAB 500 MG TAB PO SCH (10:59)
[2024-10-09 11:37] LABS: Glucose,Whole Blood 229 mg/dL (70-110)
--- NOTE | 2024-10-09 12:03 | P.WNDSOAP ---
Subjective Progress Note Date: 10/09/24 October 09, 2024: Patient was reevaluated for his stage III pressure ulcer to the coccyx. He is currently utilizing Santyl daily. We discussed offloading with the nursing staff there is debilitated state. He has no significant complaints at this time. Objective - Vital Signs Vital signs: Vital Signs Temp 97.7 F 10/09/24 07:04 Pulse 70 10/09/24 07:04 Resp 14 10/09/24 07:04 BP 179/66 10/09/24 07:04 Pulse Ox 97 10/09/24 07:04 FiO2 Intake & Output 10/08/24 10/09/24 10/09/24 18:59 06:59 18:59 Intake Total 116 Balance 116 Intake: Oral 116 Other: Voiding Method Diaper # Voids 1 3 # Bowel Movements 1 2 - Exam Sacrum: Stage III pressure ulcer measuring approximately 5.2 x 4 x 0.1 cm. There is large red granulation tissue and small Maneo fibrin slough. Bilateral heels: Unstageable pressure ulcers nonblanchable, being monitored. Offloading - Labs CBC & Chem 7: 10/08/24 11:58 10/09/24 03:46 Labs: Abnormal Lab Results - Last 24 Hours (Table) 10/08/24 10/08/24 10/08/24 Range/Units 11:58 11:58 16:32 RBC 3.19 L (4.30-5.90) m/uL Hgb 10.2 L (13.0-17.5) gm/dL Hct 30.3 L (39.0-53.0) % Lymphocytes # 0.8 L (1.0-4.8) k/uL Chloride 109 H (98-107) mmol/L Glucose 274 H (74-99) mg/dL POC Glucose (mg/dL) 189 H (70-110) mg/dL Calcium 8.0 L (8.4-10.2) mg/dL AST 75 H (17-59) U/L ALT 105 H (4-49) U/L Total Protein 5.8 L (6.3-8.2) g/dL Albumin 2.6 L (3.5-5.0) g/dL 10/08/24 10/09/24 10/09/24 Range/Units 20:46 00:09 03:46 RBC (4.30-5.90) m/uL Hgb (13.0-17.5) gm/dL Hct (39.0-53.0) % Lymphocytes # (1.0-4.8) k/uL Chloride 108 H (98-107) mmol/L Glucose 186 H (74-99) mg/dL POC Glucose (mg/dL) 249 H 209 H (70-110) mg/dL Calcium 8.1 L (8.4-10.2) mg/dL AST (17-59) U/L ALT 89 H (4-49) U/L Total Protein (6.3-8.2) g/dL Albumin 2.8 L (3.5-5.0) g/dL 10/09/24 10/09/24 Range/Units 06:33 11:36 RBC (4.30-5.90) m/uL Hgb (13.0-17.5) gm/dL Hct (39.0-53.0) % Lymphocytes # (1.0-4.8) k/uL Chloride (98-107) mmol/L Glucose (74-99) mg/dL POC Glucose (mg/dL) 183 H 229 H (70-110) mg/dL Calcium (8.4-10.2) mg/dL AST (17-59) U/L ALT (4-49) U/L Total Protein (6.3-8.2) g/dL Albumin (3.5-5.0) g/dL Microbiology - Last 24 Hours (Table) 10/02/24 22:58 Blood Culture - Final Blood Assessment and Plan (1) Pressure injury of sacral region, stage 3 Current Visit: Yes Status: Acute Code(s): L89.153 - PRESSURE ULCER OF SACRAL REGION, STAGE 3 SNOMED Code(s): 46776072860753 (2) Unstageable pressure ulcer of left heel Current Visit: Yes Status: Acute Code(s): L89.620 - PRESSURE ULCER OF LEFT HEEL, UNSTAGEABLE SNOMED Code(s): 67132913881573707 (3) Unstageable pressure ulcer of right heel Current Visit: Yes Status: Acute Code(s): L89.610 - PRESSURE ULCER OF RIGHT HEEL, UNSTAGEABLE SNOMED Code(s): 68138004566834428 Plan: Continue offloading to the heels, continue Santyl daily with saline moist gauze and bordered foam to the sacrococcyx area. Offloading air pressure mattress been recommended.
--- NOTE | 2024-10-09 14:03 | P.PN ---
Subjective Progress Note Date: 10/09/24 Patient is an 83-year-old male with past medical history significant for hypertension, hyperlipidemia, diabetes mellitus, DVT, coronary artery disease status post two-vessel CABG, CVA with residual left-sided hemiparesis. Patient reportedly brought into the emergency department last night with chief complaint of abdominal pain and intermittent episodes of nausea/vomiting. Patient is a poor historian, he believes he is at home and the year is 1974. I am unsure of his baseline mentation. No family present. Information obtained from chart review and bedside nurse. Apparently, patient has a caregiver. He has been intermittently febrile for approximately 1 week with associated nausea and vomiting, mostly food products. He has had a congested cough. Workup in the emergency department included an abdominal/pelvis CT demonstrating wall thickening of the cecum and ascending colon with mild adjacent mesenteric inflammation suggestive of infectious colitis. Also, patchy left lower lobe consolidative opacities and extensive mucous plugging, suspicious for aspiration pneumonia. Chest x-ray showing patchy interstitial opacities bilaterally. CBC done on admission: WBC count 14.5, hemoglobin 11.1, hematocrit 34.6, platelets 255. CMP: Sodium 146, potassium 4.1, chloride 109, serum bicarb 24, BUN 59, creatinine 1.58, glucose 247. AST 167, ALT 139, ALP 121. Total bilirubin 0.5. Amylase 80, lipase 49. Viral screen negative for influenza, RSV, COVID. Patient has been started on Unasyn for empiric antibiotic coverage. Pulmonary consult was placed for aspiration pneumonia. Patient is currently being evaluated in the emergency department, room 23. He is confused and oriented to self only. Does follow simple commands. Left-sided hemiparesis noted. Abdomen is firm, but nontender to palpation. Currently on room air oxygen. No acute respiratory distress. He has a weak congested cough. Normal saline infusing at 100 mL/h. Current vital signs: Temperature 98.7 F, heart rate 74 bpm, blood pressure 130/49 mmHg, SpO2 is reading 93% on bedside monitor, on room air. 10/04/2024, the patient is being seen for a follow-up. He is currently on room air oxygen with a pulse ox of 93%. No significant respiratory distress. Minimal cough and congestion. Swallow evaluation was performed today and results are still pending. Meanwhile, the patient is still on IV Unasyn. No significant nausea or emesis this morning. White cell count of 9.2 with a hemoglobin 10.7 and a platelet count of 259. Sodium is at 151 potassium is at 3.8, chloride is at 115, BUN is 39 with a creatinine of 1.03. The blood culture is still negative. Noted the patient has had a previous history of stroke. Concern towards ongoing dysphagia. Apparently patient has been having coughing spells with food intake. 10/05/2024, the patient is clinically stable. He is having purely diet. No emesis. No coughing no significant sputum production. He is on D5 water and the sodium level is down to 148. Chloride is down to 109. BUN is 22 with a creatinine of 0.8. The white cell count is at 11.7 with a hemoglobin of 11.6. Remains on IV Unasyn. Remains on room air oxygen. No signs of any significant respiratory distress. No reported aspiration. 10/06/2024, the patient remains on room air oxygen. He remains on IV Unasyn. No respiratory distress. He is taking honey nectar thickened oral material and is able to tolerate it well. Denies having any nausea or emesis. His last bowel movement was 2 days ago. Abdomen is nondistended. Remains on IV Unasyn. Remains on Lovenox for DVT prophylaxis. Labs from today are still pending. Labs from yesterday were all stable. No significant leukocytosis. Renal function remains stable. No other significant events overnight. 10/07/2024, the patient is on room air oxygen. Did have a small bowel movement activity yesterday. Otherwise, doing well without any significant complaints. Remains on IV Unasyn. Follow-up chest x-ray from yesterday showed improvement in the lower lobe consolidation. Patient denies having any significant respira tory distress. Meanwhile, he was hyponatremic and sodium level improved and is currently down to 145 and a BUN of 12 with a creatinine of 0.9. The white cell count is at 9.7 with a hemoglobin of 10.2. Remains on IV Unasyn. Lovenox for DVT prophylaxis. Rest of medications remain unchanged. 10/08/2024, the patient is resting comfortably in bed. No reported aspiration. Afebrile. Remains on room air oxygen. Remains on IV Unasyn. Blood cultures been negative. The patient is having some occasional hallucinations, visual. Able to communicate. No nausea. No emesis. Having bowel movements and currently on MiraLAX. White cell count is at 9.1, hemoglobin 10.2 and a platelet count of 258. Electrolytes are normal, BUN 13 with a creatinine of 0.9. 10/09/2024, patient is on room air oxygen. No specific complaints. Tolerating diet. No reported aspiration. Remains on IV Unasyn. No nausea vomiting or diarrhea or abdominal pain. BUN is 11 with a creatinine of 0.8. Sodium levels at 143. No other significant events overnight. Objective - Vital Signs Vital signs: Vital Signs Temp 97.7 F 10/09/24 07:04 Pulse 70 10/09/24 07:04 Resp 14 10/09/24 07:04 BP 179/66 10/09/24 07:04 Pulse Ox 97 10/09/24 07:04 FiO2 Intake & Output 10/08/24 10/09/24 10/09/24 18:59 06:59 18:59 Intake Total 116 Balance 116 Intake: Oral 116 Other: Voiding Method Diaper # Voids 1 3 # Bowel Movements 1 2 - Exam GENERAL EXAM: Alert, 83-year-old white male, laying supine, fairly comfortable in no apparent distress. HEAD: Normocephalic and atraumatic EYES: Normal reaction of pupils, equal size. NOSE: Clear with pink turbinates. THROAT: No erythema or exudates. Dry mucous membranes. NECK: No masses, no JVD. CHEST: No chest wall deformity. LUNGS: Equal air entry with n left lower lobe inspiratory crackles. On room air. SpO2 reading 93% on bedside monitor. No conversational dyspnea or accessory muscle use. Has a weak congested cough. CVS: S1 and S2 normal with no audible murmur, regular rhythm. No extra heart sounds ABDOMEN: Abdomen appears distended, active bowel sounds, firm to palpation, no significant guarding or rigidity, no organomegaly. SPINE: No scoliosis or deformity SKIN: No rashes CENTRAL NERVOUS SYSTEM: Alert, oriented to self. Left-sided facial droop. Left-sided hemiparesis noted. Right-sided upper and lower extremity strength grade 4/5. EXTREMITIES: There is no peripheral edema, clubbing, or cyanosis. Peripheral pulses are intact. - Labs CBC & Chem 7: 10/08/24 11:58 10/09/24 03:46 Labs: Abnormal Lab Results - Last 24 Hours (Table) 10/08/24 10/08/24 10/08/24 Range/Units 11:34 11:58 11:58 RBC 3.19 L (4.30-5.90) m/uL Hgb 10.2 L (13.0-17.5) gm/dL Hct 30.3 L (39.0-53.0) % Lymphocytes # 0.8 L (1.0-4.8) k/uL Chloride 109 H (98-107) mmol/L Glucose 274 H (74-99) mg/dL POC Glucose (mg/dL) 282 H (70-110) mg/dL Calcium 8.0 L (8.4-10.2) mg/dL AST 75 H (17-59) U/L ALT 105 H (4-49) U/L Total Protein 5.8 L (6.3-8.2) g/dL Albumin 2.6 L (3.5-5.0) g/dL 10/08/24 10/08/24 10/09/24 Range/Units 16:32 20:46 00:09 RBC (4.30-5.90) m/uL Hgb (13.0-17.5) gm/dL Hct (39.0-53.0) % Lymphocytes # (1.0-4.8) k/uL Chloride (98-107) mmol/L Glucose (74-99) mg/dL POC Glucose (mg/dL) 189 H 249 H 209 H (70-110) mg/dL Calcium (8.4-10.2) mg/dL AST (17-59) U/L ALT (4-49) U/L Total Protein (6.3-8.2) g/dL Albumin (3.5-5.0) g/dL 10/09/24 10/09/24 Range/Units 03:46 06:33 RBC (4.30-5.90) m/uL Hgb (13.0-17.5) gm/dL Hct (39.0-53.0) % Lymphocytes # (1.0-4.8) k/uL Chloride 108 H (98-107) mmol/L Glucose 186 H (74-99) mg/dL POC Glucose (mg/dL) 183 H (70-110) mg/dL Calcium 8.1 L (8.4-10.2) mg/dL AST (17-59) U/L ALT 89 H (4-49) U/L Total Protein (6.3-8.2) g/dL Albumin 2.8 L (3.5-5.0) g/dL Microbiology - Last 24 Hours (Table) 10/02/24 22:58 Blood Culture - Final Blood Assessment and Plan Assessment: aspiration pneumonia, chest x-ray continues to show overall unchanged patchy interstitial bibasilar opacities. Awaiting the results of the swallow evaluation. The patient is currently on room air oxygen. The patient is currently on IV Unasyn. Clinically stable. Follow-up chest x-ray from 10/06/2024 shows improvement in lower lobe pulmonary infiltrate and the patient remains on room air oxygen. Acute hypoxemic respiratory failure, currently on room air oxygen Infectious colitis, abdominal/pelvis CT demonstrating wall thickening of the cecum and ascending colon with mild adjacent mesenteric inflammation suggestive of infectious colitis. Also, patchy left lower lobe consolidative opacities and extensive mucous plugging, suspicious for aspiration pneumonia. Currently tolerating pured diet Nausea and vomiting, improved Acute leukocytosis, improved Acute kidney injury, improving Transaminitis, improving Hypochloremic hypernatremia, improved Hypertension History of hyperlipidemia Diabetes mellitus type 2 History of coronary disease status post two-vessel CABG History of CVA with residual left-sided hemiparesis History of bilateral carotid artery stenosis. CT angio done August, demonstrating approximately 7080% stenosis of the left proximal ICA, as well as, 60 to 70% stenosis of the proximal right ICA. Plan: Remains on room air oxygen repeat chest x-ray from 10/06/2024 showed improvement Monitor bowel movement activity, currently on MiraLAX Advance diet as tolerated currently on pured diet Patient stable on room air oxygen Maintain aspiration precautions Completed the swallow evaluation Patient can be transition to oral Augmentin. No other pulmonary issues for now. DVT prophylaxis: Lovenox We will continue to follow
[2024-10-09 16:46] LABS: Glucose,Whole Blood 211 mg/dL (70-110)
[2024-10-09 19:40] LABS: Glucose,Whole Blood 180 mg/dL (70-110)
[2024-10-10 01:46] VITALS: RESP 18
[2024-10-10 06:29] LABS: Glucose,Whole Blood 250 mg/dL (70-110)
[2024-10-10 09:05] LABS: HCT 33.2 % (39.0-53.0); HGB 10.5 gm/dL (13.0-17.5); Hypochromasia Slight; MCH 30.6 pg (25.0-35.0); MCHC 31.7 g/dL (31.0-37.0); MCV 96.6 fL (80.0-100.0); Mean Platelet Volume 7.1; Platelet Count 245 k/uL (150-450); RBC 3.43 m/uL (4.30-5.90); RDW 13.4 % (11.5-15.5); WBC 6.9 k/uL (3.8-10.6)
[2024-10-10 09:36] VITALS: BP 153/63; PULSE 64; TEMP 97.9
[2024-10-10 09:51] LABS: ALT 78 U/L (10-49); AST 45 U/L (14-35); Albumin 2.8 g/dL (3.8-4.9); Albumin/Globulin Ratio 0.85 Ratio (1.60-3.17); Alkaline Phosphatase 97 U/L (41-126); Blood Urea Nitrogen 11.4 mg/dL (9.0-27.0); Calcium 7.8 mg/dL (8.7-10.3); Carbon Dioxide 24.9 mmol/L (21.6-31.8); Chloride 112 mmol/L (96-109); Globulin 3.3 g/dL (1.6-3.3); Glucose 251 mg/dL (70-110); Potassium 3.7 mmol/L (3.5-5.5); Sodium 146 mmol/L (135-145); Total Bilirubin <0.2 mg/dL (0.3-1.2); Total Protein 6.1 g/dL (6.2-8.2)
--- NOTE | 2024-10-10 11:44 | P.DS ---
Providers Date of admission: 10/02/24 23:29 Expected date of discharge: 10/10/24 Attending physician: Deb Costa MD Consults: 10/03/24 05:33 Consult Physician Urgent Consulting Provider: Bette Mirza Consult Reason/Comments: pneumonia Do you want consulting provider notified?: Yes Primary care physician: Physician Nonstaff Hospital Course: Discharge Diagnosis: Acute metabolic encephalopathy, suspect hospital associated delirium. Resolved. Acute hypoxic respiratory failure secondary to aspiration pneumonia . Patient received 7-day course of IV antibiotics with Unasyn and being discharged on an additional 3-day course of Augmentin to complete 10-day antibiotic course as recommended by research physician. Patient placed on a chopped diet with honey nectar thickened liquids, also discussed with caregiver at bedside recommendations for patient to remain upright 1 to 2 hours after each meal. Patient was successfully weaned off of oxygen and is currently 97% on room air. Infectious colitis. Resolved. Normocytic anemia. Hemoglobin stable at 10.5 on discharge. Nausea and vomiting, intractable nausea and vomiting on arrival. Resolved. Transaminitis, improved. AST 45, ALT 78, and alkaline phosphatase of 97 on discharge. Acute kidney injury, likely secondary to dehydration upon arrival. Resolved. Hypernatremia likely from lack of free water intake. Patient was placed on D5W infusion resulting in resolution of hypernatremia and IV fluid discontinued. Diabetes mellitus with hyperglycemia. Continue metformin 1000 mg twice daily, glipizide 5 mg daily, and Lantus 3 units daily.. CAD status post CABG. Continue daily medication regimen with aspirin 81 mg daily, amlodipine 10 mg daily, atorvastatin 40 mg nightly, carvedilol 3.125 mg twice daily, Plavix 75 mg daily, and losartan 50 mg daily. CVA with left-sided residual deficits History of bilateral carotid artery stenosis Hypertension Hyperlipidemia Pressure ulcers, present on admission. Pressure ulcers to sacral, bilateral buttock/right greater than left early stage III pressure ulcers, with minimal eschar on left and Unstageable pressure ulcers on right and left ankles and left heel. Evaluated. Patient to continue offloading to the heels, continue Santyl daily with saline moist gauze and bordered foam to the sacrococcyx area. Offloading air pressure mattress is recommended. Patient to follow-up outpatient with wound care center. Hospital course: Patient is a very pleasant 83-year-old male with past medical history of CVA with left-sided residual deficits, type II DM, CAD with stents placed, HTN, HLD, and previous DVT. He presented to the hospital on 10/02/2024 with complaints of nausea and intractable vomiting and was found to have altered mentation, fever, and cough. Upon arrival to our facility patient underwent evaluation in the emergency department. Vital signs upon arrival show blood pressure 132/58, heart rate 97, respiratory rate 16, temp 97.6 F, and SpO2 of 96% on 3 L EKG was completed showing normal sinus rhythm at 85 bpm with left ventricular hypertrophy. Chest x-ray completed showing patchy interstitial opacities bilaterally which could reflect atypical infectious etiology or mild pulmonary vascular congestion. CT abdomen and pelvis showing patchy lower lobe consolidation opacities with extensive mucous plugging suspicious for aspiration pneumonia, wall thickening of the cecum and ascending colon with mild adjacent mesenteric inflammation suggestive of infectious colitis given the extent of liquid colonic stools/diarrhea recommend outpatient direct visualization/colonoscopy. Labs were completed and reviewed. CBC showing leukocytosis with WBC count of 14.5 and normocytic anemia with hemoglobin of 11.1. BMP showing sodium 146, chloride 109 and elevated renal function with BUN of 59, creatinine 1.58 and GFR 40 with baseline creatinine of 0.9. Urinalysis negative for infection positive for 1+ protein, trace ketones, and 7 WBCs. Influenza A, influenza B, RSV, and COVID PCR negative. Urine Legionella negative. Patient admitted under our services with consultation to pulmonology. Patient underwent 7 night hospitalization and treatment for acute hypoxic respiratory failure secondary to aspiration pneumonia and infectious colitis. Nausea, vomiting, and diarrhea resolved. Patient received 7-day course of IV antibiotics with Unasyn and was successfully weaned off of oxygen. Per pulmonology recommendations patient being discharged home on an additional 3-day course of Augmentin to complete a treatment course of 10 days of antibiotics for aspiration pneumonia. Patient at baseline mentation alert to person, place, and situation and confused to time. Caregivers at bedside provided with discharge instructions including recommendations for chopped diet pain after thickened liquids. Wound care instructions provided. Patient medically optimized and to follow-up outpatient with PCP in 1 to 2 days, research physician in 1 week, and wound care center. Patient being discharged home into care of caregivers where it is reported he has 24-hour supervision and care. Physical exam: Vital signs reviewed and stable. General: Nontoxic, no distress and appears stated age. Derm: Skin warm and dry, normal coloration for ethnicity. Pressure ulcers bilateral buttocks, sacral, bilateral ankles and left heel with dressings in place. Head: Atraumatic, normocephalic and symmetric. Eyes: EOM's intact, no lid lag, and anicteric sclera Mouth: no lip lesions, mucus membranes moist Cardiovascular: regular rate and rhythm with normal S1S2, no murmur, positive posterior tibial pulses bilaterally, and cap refill < 2 seconds. Lungs: Respirations even, regular, and unlabored on room air. Lungs slightly diminished at bases otherwise clear to auscultation with no noted wheezes, rhonchi, crackles, or rales. Abdominal: soft, nontender to palpation, no guarding, no appreciable organomegaly Ext: Left upper and lower extremity weakness, minimal movement of left foot and toes with left upper extremity flaccidity secondary to previous CVA. Neuro: Speech clear, face symmetrical and CN II-XII grossly intact with no noted focal neuro deficits Psych: Alert and oriented to person patient confused to time. A total of 37 minutes of time were spent preparing this complex discharge summary. Pt was discharged on 11/07/2024 at 11:29 AM. Patient was seen independently by Nurse Practitioner. This document was prepared using [employer] dictation software. Please allow for errors in chief design engineer while rare they do occur. Gerry Queen CLIENT SUPPORT PROFESSIONAL rendered care for this patient independently, reviewed the findings and plan as documented in the note above. I did not physically speak with or examine the patient on this date. Patient Condition at Discharge: Stable Plan - Discharge Summary New Discharge Prescriptions: New polyethylene glycoL 3350 [Miralax] 17 gm PO DAILY 30 Days #30 packet Collagenase [Santyl Ointment] 1 applic TOPICAL DAILY each Amoxic-Pot Clav 500-125 mg [Augmentin 500-125 mg] 1 tab PO Q12HR 3 Days #6 tab Continue Ferrous Sulfate [Iron (65 MG Elemental)] 325 mg PO DAILY metFORMIN HCL [Glucophage] 1,000 mg PO BID-W/MEALS Cystex Cranberry Supplements 1 cap PO DAILY Lidocaine 5% Patch [Lidoderm 5% Patch] 1 patch TOPICAL DAILY carvediloL [Coreg] 3.125 mg PO BID Losartan [Cozaar] 50 mg PO DAILY #30 tab Atorvastatin [Lipitor] 40 mg PO HS #30 tab amLODIPine [Norvasc] 10 mg PO DAILY #30 tab Vit C/E/Zn/Coppr/Lutein/Zeaxan [Preservision Areds 2 Softgel] 1 cap PO BID glipiZIDE XL [Glucotrol XL] 5 mg PO AC-BRKFST Insulin Glargine (Lantus) [Lantus Vial] 3 unit SQ DAILY PRN PRN Reason: glucose >250 Ketoconazole 2% Shampoo [Nizoral] 1 applic TOPICAL Q48H Furosemide [Lasix] 20 mg PO DAILY PRN PRN Reason: Edema Fluocinolone/Shower Cap [Fluocinolone 0.01% Scalp Oil] 1 applic TOPICAL DAILY PRN PRN Reason: flare ups Famotidine [Pepcid] 20 mg PO DAILY 15 Days #15 tab Clopidogrel [Plavix] 75 mg PO DAILY #30 tab Aspirin EC [Ecotrin Low Dose] 81 mg PO DAILY #30 tab Discharge Medication List Ferrous Sulfate [Iron (65 MG Elemental)] 325 mg PO DAILY 12/09/19 [History] metFORMIN HCL [Glucophage] 1,000 mg PO BID-W/MEALS 12/09/19 [History] Cystex Cranberry Supplements 1 cap PO DAILY 09/02/24 [History] Fluocinolone/Shower Cap [Fluocinolone 0.01% Scalp Oil] 1 applic TOPICAL DAILY PRN 09/02/24 [History] Furosemide [Lasix] 20 mg PO DAILY PRN 09/02/24 [History] Insulin Glargine (Lantus) [Lantus Vial] 3 unit SQ DAILY PRN 09/02/24 [History] Ketoconazole 2% Shampoo [Nizoral] 1 applic TOPICAL Q48H 09/02/24 [History] Lidocaine 5% Patch [Lidoderm 5% Patch] 1 patch TOPICAL DAILY 09/02/24 [History] Vit C/E/Zn/Coppr/Lutein/Zeaxan [Preservision Areds 2 Softgel] 1 cap PO BID 09/02/24 [History] carvediloL [Coreg] 3.125 mg PO BID 09/02/24 [History] glipiZIDE XL [Glucotrol XL] 5 mg PO AC-BRKFST 09/02/24 [History] Aspirin EC [Ecotrin Low Dose] 81 mg PO DAILY #30 tab 09/09/24 [Rx] Atorvastatin [Lipitor] 40 mg PO HS #30 tab 09/09/24 [Rx] Clopidogrel [Plavix] 75 mg PO DAILY #30 tab 09/09/24 [Rx] Famotidine [Pepcid] 20 mg PO DAILY 15 Days #15 tab 09/09/24 [Rx] Losartan [Cozaar] 50 mg PO DAILY #30 tab 09/09/24 [Rx] amLODIPine [Norvasc] 10 mg PO DAILY #30 tab 09/09/24 [Rx] Amoxic-Pot Clav 500-125 mg [Augmentin 500-125 mg] 1 tab PO Q12HR 3 Days #6 tab 10/10/24 [Rx] Collagenase [Santyl Ointment] 1 applic TOPICAL DAILY each 10/10/24 [Rx] polyethylene glycoL 3350 [Miralax] 17 gm PO DAILY 30 Days #30 packet 10/10/24 [Rx] Follow up Appointment(s)/Referral(s): [facility] [NON-STAFF] - 1 Week [facility] [NON-STAFF] - 1 Week Bette Mirza MD [STAFF PHYSICIAN] - 1 Week Patient Instructions/Handouts: Aspiration Pneumonia (DC) Activity/Diet/Wound Care/Special Instructions: Activity: As tolerated. Take breaks as needed. Diet: Chopped diet with nectar thick liquids, aspiration precautions continuously. No straws. Special Instructions: Take all of your medications as directed and remember to keep all of your doctor's appointments and follow-up as needed. As discussed with caregiver at bedside, recommend upright after meals for 1-2 hours to prevent further episodes of aspiration. Continue offloading to the heels, continue Santyl daily with saline moist gauze and bordered foam to the sacrococcyx area. Offloading air pressure mattress is recommended. Thank you for allowing us to participate in your care, it was truly a pleasure having you for our patient!!! . Discharge Disposition: HOME WITH HOME HEALTH SERVICES
== END 2024-10-10 12:09 | disposition home health service (06) | DRG 177 ==
LOC: EC 19:07 → 4SSUR 23:29 → 1SOBS 10-03 15:00 → 4SSUR 10-06 17:24
PROVIDERS: ADMIT Internal Medicine; ATTEND Internal Medicine
DX: J69.0 Pneumonitis due to inhalation of food and vomit (principal); G93.41 Metabolic encephalopathy; L89.323 Pressure ulcer of left buttock, stage 3; L89.313 Pressure ulcer of right buttock, stage 3; J96.01 Acute respiratory failure with hypoxia; T17.990A Other foreign object in respiratory tract, part unspecified in causing asphyxiation, initial encounter; D64.9 Anemia, unspecified; E11.65 Type 2 diabetes mellitus with hyperglycemia; I69.354 Hemiplegia and hemiparesis following cerebral infarction affecting left non-dominant side; I10 Essential (primary) hypertension; I65.23 Occlusion and stenosis of bilateral carotid arteries; E87.0 Hyperosmolality and hypernatremia; A09 Infectious gastroenteritis and colitis, unspecified; N17.9 Acute kidney failure, unspecified; L89.510 Pressure ulcer of right ankle, unstageable; L89.520 Pressure ulcer of left ankle, unstageable; L89.620 Pressure ulcer of left heel, unstageable; L89.159 Pressure ulcer of sacral region, unspecified stage; E78.5 Hyperlipidemia, unspecified; E86.0 Dehydration; K21.9 Gastro-esophageal reflux disease without esophagitis; Z20.822 Contact with and (suspected) exposure to COVID-19; I69.392 Facial weakness following cerebral infarction; M19.90 Unspecified osteoarthritis, unspecified site; G47.30 Sleep apnea, unspecified; K59.00 Constipation, unspecified; E86.1 Hypovolemia; R53.81 Other malaise; R74.01 Elevation of levels of liver transaminase levels; E87.6 Hypokalemia; E87.8 Other disorders of electrolyte and fluid balance, not elsewhere classified; I25.10 Atherosclerotic heart disease of native coronary artery without angina pectoris; R13.10 Dysphagia, unspecified; Z79.02 Long term (current) use of antithrombotics/antiplatelets; Z79.4 Long term (current) use of insulin; Z79.82 Long term (current) use of aspirin; Z79.84 Long term (current) use of oral hypoglycemic drugs; Z79.899 Other long term (current) drug therapy; Z85.828 Personal history of other malignant neoplasm of skin; Z86.718 Personal history of other venous thrombosis and embolism; Z87.891 Personal history of nicotine dependence; Z95.1 Presence of aortocoronary bypass graft; Z95.5 Presence of coronary angioplasty implant and graft; Z88.5 Allergy status to narcotic agent
CPT/HCPCS: 36415; 71045; 71046; 74018; 74176; 74230; 80048; 80053; 81001; 82140; 82150; 83036; 83605; 83690; 83735; 84145; 84443; 85025; 85027; 85610; 85730; 87040; 87449; 87636; 93005; 96361; 96365; 96367; 96372; 96375; 99285

== ENCOUNTER 2024-11-29 05:41 | Inpatient (IN) | payer MEDICARE, BC ==
[2024-11-29] MEDS ORDERED: ALPRAZolam 0.5 MG TAB PO PRN (05:51)
[2024-11-29] MEDS ORDERED: ALPRAZolam 0.25 MG TAB PO PRN (05:51)
[2024-11-29] MEDS ORDERED: CLOPIDOGREL 75 MG TAB PO PRN (05:51)
[2024-11-29 06:39] LABS: Glucose,Whole Blood 158 mg/dL (70-110)
[2024-11-29 06:47] LABS: Basophils % (A) 0 %; Eosinophils # (A) 0.3 k/uL (0-0.7); Eosinophils % (A) 5 %; HCT 37.6 % (39.0-53.0); Hypochromasia Slight; Lymphocytes % (A) 14 %; MCHC 31.9 g/dL (31.0-37.0); MCV 97.1 fL (80.0-100.0); Mean Platelet Volume 7.8; Monocytes # (A) 0.4 k/uL (0-1.0); Monocytes % (A) 6 %; Neutrophils # (A) 5.3 k/uL (1.3-7.7); Neutrophils % (A) 73 %; Platelet Count 233 k/uL (150-450); RBC 3.88 m/uL (4.30-5.90); RDW 14.8 % (11.5-15.5); WBC 7.2 k/uL (3.8-10.6)
[2024-11-29] MEDS: IV FLUID CONTINUATION 1,000 ML IV ONE ×2 (07:02→10:07)
[2024-11-29] MEDS: SODIUM CHLORIDE 0.9% 1,000 ML in EMPTY BAG 1 BAG IV ONE (07:05)
[2024-11-29 07:08] LABS: African American GFR (CKD) >90 (>60 ml/min/1.73 sqM); Anion Gap 8 mmol/L; Blood Urea Nitrogen 22 mg/dL (9-20); Calcium 8.8 mg/dL (8.4-10.2); Carbon Dioxide 31 mmol/L (22-30); Chloride 103 mmol/L (98-107); Glucose 176 mg/dL (74-99); Non-African American GFR(CKD) 81 (>60 ml/min/1.73 sqM); Potassium 5.1 mmol/L (3.5-5.1); Sodium 142 mmol/L (137-145)
[2024-11-29] MEDS: ASPIRIN 81 MG PO PRN (07:14)
[2024-11-29] MEDS ORDERED: NYSTAT-TRIAMCIN 100,000-0.1 UNIT/GM-% CREAM 30 GM TUBE TOPICAL ONE (07:25)
[2024-11-29] MEDS ORDERED: fentaNYL (PF) 50 MCG/ML 2 ML AMP ONE (07:25)
[2024-11-29] MEDS ORDERED: PROTAMINE SULFATE 10 MG/ML 5 ML VIAL ONE (07:25)
[2024-11-29] MEDS ORDERED: HEPARIN SODIUM,PORCINE 10,000 UNIT/ML 1 ML VIAL ONE (07:25)
[2024-11-29] MEDS ORDERED: DEXMEDETOMIDINE/0.9% NACL(PMX) 400 MCG/100 ML IV ONE (07:25)
[2024-11-29] MEDS: HEPARIN SODIUM,PORCINE 10,000 UNIT in SODIUM CHLORIDE 0.9% 1,000 ML IRRIGATION ONE (07:45)
[2024-11-29] MEDS: LIDOCAINE 1% INJ 10MG/ML (20 ML MDV) SQ ONE (07:55)
[2024-11-29] MEDS: HEPARIN SODIUM,PORCINE (1 ML) 2,500 UNIT in SODIUM CHLORIDE 0.9% 250 ML IRRIGATION ONE (08:00)
[2024-11-29] MEDS: ceFAZolin 2 GM in SODIUM CHLORIDE 0.9% 500 ML 500 ML IRRIGATION PRN (08:00)
[2024-11-29] MEDS ORDERED: RX INFO: IV CONTRAST WAS GIVEN 1 EACH MISC MISCELLANE PRN (09:00)
[2024-11-29] MEDS ORDERED: ATROPINE SULFATE 0.1 MG/ML 10ML SYRINGE IV PRN (09:04)
[2024-11-29] MEDS ORDERED: MAG HYDROX/AL HYDROX/SIMETH 30 ML CUP PO PRN (09:04)
--- NOTE | 2024-11-29 09:04 | P.OP ---
Description of Procedure: Date: 11/29/2024 Preoperative diagnosis: Left symptomatic carotid stenosis 80% Postoperative diagnosis: Same Procedure: Left internal carotid artery TCAR (transient carotid artery revascularization) with ENROUTE trans-carotid neuro protection and stent system Surgeon: Venkat Reyes D.O. Anesthesia: Local with sedation Estimated blood loss: Minimal Complications: None Condition: Stable Pre-Dilatation balloon: 5.5 x 30mm Stent: 9 x 7 mm tapered by 40 mm Flow reversal time: 7 minutes Contrast: 30 cc Indication for procedure: 84-year-old gentleman with history of multiple TIA, CVA with recent hospitalization secondary to stroke which she was found to have left-sided internal carotid artery stenosis greater than 80% on CTA. Due to the fact that he is symptomatic he was scheduled to undergo TCAR procedure. Operative narrative: After written and informed consent was obtained from the patient and all risks, benefits and complications were described. The patient was brought to the operating suite and laid in a supine position. The neck and groin were prepped and the patient was sterilely draped. A transverse 2-4 cm incision was made between the sternal and clavicular heads of the sternocleidomastoid muscle, below the omohyoid. Following longitudinal division of the carotid sheath the jugular vein was partially dissected and retracted. Once 3 cm of common carotid artery (CCA) were isolated, umbilical tape was placed around the proximal 1/3 of the CCA under direct vision. A 5.0 polypropylene suture was pre-placed in the anterior wall of the CCA, in a purse- string stitch, close to the clavicle to facilitate hemostasis upon removal of the arterial sheath at completion of the TCAR procedure. The contralateral right common femoral vein was accessed under ultrasound guidance, using standard Seldinger and micropuncture access technique. The Venous Return Sheath was advanced into the CFV over the 0.035 wire provided. Blood was aspirated from the flow line followed by flushing of the Venous Sheath with heparinized saline. The Venous Sheath was secured to the patient's skin with suture to maintain optimal position in the vessel. Heparin was given to obtain a therapeutic activated clotting time >250 seconds prior to arterial access. A 4-Czech non-stiffened micropuncture set was used, puncturing the artery with the 21G needle through the pre-placed stitch while holding gentle traction on the umbilical tape to stabilize and centralize the CCA within the incision. Careful attention was paid to the change in CCA shape when using the umbilical tape to control or lift the artery. The micropuncture wire was then advanced 3-4 cm into the CCA and, the 21G needle was removed. The micropuncture sheath was advanced 2-3 cm into the CCA and the wire and dilator were removed. Pulsatile backflow indicated correct positioning. The provided 0.035" J-tipped guidewire was inserted as close as possible to the bifurcation without engaging the lesion. After micropuncture sheath removal, the Transcarotid Arterial Sheath was advanced to the 2.5cm marker and the 0.035 wire and dilator were then removed. Arterial Sheath position was assessed under fluoroscopy in two projections to ensure that the sheath tip was oriented coaxially in the CCA. The Arterial Sheath was sutured to the patient with gentle forward tension. Blood was slowly aspirated followed by flushing with heparinized saline. Traction applied to the CCA previously to facilitate access was gently released. The Flow Controller was connected to the Transcarotid Arterial Sheath, prepared by passively allowing a column of arterial blood to fill the line and connected to the Venous Return Sheath. CCA inflow was occluded proximal to the arteriotomy with a vascular clamp to achieve active flow reversal. To confirm flow reversal, a saline bolus was delivered into the venous flow line on both High and Low flow settings of the Flow Controller. Angiograms were performed with slow injections of a small amount of contrast filling just past the lesion to minimize antegrade transmission of micro-bubbles. Prior to lesion manipulation, heart rate (60bpm) and systolic BP (160mmHg) were managed upwards to optimize flow reversal and procedural neuroprotection. The lesion was crossed with an 0.014 guidewire, pre- dilatation with a 5.5x30mm balloon was performed followed by primary stenting with the ENROUTE Transcarotid 9x40mm stent. Post dilatation was not performed. At TCAR case completion, antegrade flow was restored. The Transcarotid Arterial Sheath was removed and the pre-closure suture was tied. The Venous Return Sheath was removed and hemostasis was achieved with brief manual compression. The patient tolerated the procedure well and was moving all four extremities to command and then sent to PACU for recovery.
--- NOTE | 2024-11-29 09:19 | IR ---
EXAMINATION TYPE: IR stent intravas non coronary Intraoperative/procedural fluoroscopic services were provided. CLINICAL INDICATION:Male, 84 years old with history of left carotid stent, 7.6min fluoro, 6.8Gycm2; , [facility] FINDINGS: Multiple fluoroscopic images demonstrating left carotid stent placement. Total fluoroscopy time is 7.6 min. DAP: 6.80 Gycm2 Please see the operative/procedural note for further details. [facility], , 11/29/2024 9:16 AM
[2024-11-29 11:20] LABS: Glucose,Whole Blood 200 mg/dL (70-110)
[2024-11-29] MEDS ORDERED: DEXTROSE 50% SYRINGE 50 ML IVP PRN ×2 (14:52)
--- NOTE | 2024-11-29 15:22 | P.PN ---
Subjective Progress Note Date: 11/29/24 Patient is a 84-year-old male with past medical history of CVA with left-sided residual deficits, type II DM, CAD status post CABG, with stents, history of bilateral carotid artery stenosis, HTN, HLD, history of DVT, who presented for elective left internal carotid artery TCAR that was performed on 11/29/2024, no immediate complications reported, patient tolerated procedure well, minimal EBL. Hospitalist service consulted for medical management. After procedure patient's vitals were stable with heart rate in 80s, BP 120 91/63, he is satting well on room air. Lab work showed normal WBC, hemoglobin 12.0, stable, normal platelet count, unremarkable sodium, potassium, creatinine, blood glucose 176. Patient was complaining of some left-sided neck discomfort but not pain. Otherwise feeling okay, requested condom catheter as that he uses at home. Patient's son present during exam. Pertinent positives and negatives as discussed in HPI, a complete review of systems was performed and all other systems are negative. Patient seen and examined at bedside. Vital signs reviewed General: nontoxic, no distress, appears at stated age Derm: warm, dry, Pressure ulcers bilateral buttocks, sacral, bilateral ankles and left heel Head: atraumatic, normocephalic, symmetric Eyes: EOMI, no lid lag, anicteric sclera, pupils equal round reactive to light ENT: Nose and ears atraumatic Neck: No thyromegaly, supple, left-sided neck dressing with mild surrounding swelling, clean, dry Mouth: no lip lesion, mucus membranes moist Cardiovascular: S1S2 reg, no murmur, no edema Lungs: clear to auscultation bilateral, no rhonchi, no rales, no wheeze, no accessory muscle use Abdominal: soft, nontender to palpation, no guarding, no appreciable organomegaly Ext: no gross muscle atrophy, muscle strength muscle strength 5 out of 5 in all 4 extremities, no contractures Neuro: CN II-XII grossly intact Psych: Alert, oriented, appropriate affect Assessment/Plan: CAD status post CABG CVA with left-sided residual deficits History of bilateral carotid artery stenosis Hypertension Hyperlipidemia -Home medications reconciled -Continue daily medication regimen with aspirin 81 mg daily, amlodipine 10 mg daily, atorvastatin 40 mg nightly, carvedilol 3.125 mg twice daily, Plavix 75 mg daily, and losartan 50 mg daily. Diabetes mellitus with hyperglycemia -Continue glycemic protocol with NovoLog sliding scale. Bilateral carotid artery stenosis s/p elective left internal carotid artery TCAR 11/29/2024 -Your postop management, VTE prophylaxis pain control -Patient is on aspirin 81 mg daily, clopidogrel 75 mg daily, will continue his home atorvastatin 40 mg daily -GI prophylaxis with Pepcid 20 mg daily Chronic anemia: Continue home iron 325 mg daily Pressure ulcers, present on admission -Pressure ulcers to sacral, bilateral buttock/right greater than left early stage III pressure ulcers, with minimal eschar on left and Unstageable pressure ulcers on right and left ankles and left heel. Objective - Vital Signs Vital signs: Vital Signs Temp 98.8 F 11/29/24 06:59 Pulse 85 11/29/24 12:49 Resp 18 11/29/24 12:49 BP 129/63 11/29/24 12:49 Pulse Ox 99 11/29/24 12:49 FiO2 Intake & Output 11/28/24 11/29/24 11/29/24 18:59 06:59 18:59 Intake Total 1273 Balance 1273 Weight 60.9 kg Intake: IV 1273 - Labs CBC & Chem 7: 11/29/24 06:00 11/29/24 06:00 Labs: Abnormal Lab Results - Last 24 Hours (Table) 11/29/24 11/29/24 11/29/24 Range/Units 06:00 06:00 06:36 RBC 3.88 L (4.30-5.90) m/uL Hgb 12.0 L (13.0-17.5) gm/dL Hct 37.6 L (39.0-53.0) % Carbon Dioxide 31 H (22-30) mmol/L BUN 22 H (9-20) mg/dL Glucose 176 H (74-99) mg/dL POC Glucose (mg/dL) 158 H (70-110) mg/dL 11/29/24 Range/Units 11:19 RBC (4.30-5.90) m/uL Hgb (13.0-17.5) gm/dL Hct (39.0-53.0) % Carbon Dioxide (22-30) mmol/L BUN (9-20) mg/dL Glucose (74-99) mg/dL POC Glucose (mg/dL) 200 H (70-110) mg/dL
[2024-11-29 16:43] LABS: Glucose,Whole Blood 163 mg/dL (70-110)
[2024-11-29] MEDS: carvediloL 3.125 MG TAB PO SCH (17:42)
[2024-11-29] MEDS: INSULIN LISPRO (HumaLOG) 100 UNIT/ML 10 mL VL SQ SCH (17:48)
[2024-11-29] MEDS ORDERED: ZINC OXIDE PASTE (Z-GUARD) 1 APPLIC TOPICAL PRN (18:57)
[2024-11-29 20:21] LABS: Glucose,Whole Blood 161 mg/dL (70-110)
[2024-11-30 06:00] LABS: Glucose,Whole Blood 150 mg/dL (70-110)
[2024-11-30 06:49] LABS: Basophils % (A) 0 %; Eosinophils # (A) 0.2 k/uL (0-0.7); Eosinophils % (A) 3 %; HCT 34.5 % (39.0-53.0); HGB 11.1 gm/dL (13.0-17.5); Hypochromasia Slight; Lymphocytes # (A) 0.9 k/uL (1.0-4.8); Lymphocytes % (A) 11 %; MCH 31.5 pg (25.0-35.0); MCHC 32.3 g/dL (31.0-37.0); MCV 97.7 fL (80.0-100.0); Mean Platelet Volume 6.9; Monocytes # (A) 0.5 k/uL (0-1.0); Monocytes % (A) 7 %; Neutrophils # (A) 6.3 k/uL (1.3-7.7); Neutrophils % (A) 78 %; Platelet Count 189 k/uL (150-450); RBC 3.53 m/uL (4.30-5.90); RDW 14.7 % (11.5-15.5); WBC 8.1 k/uL (3.8-10.6)
[2024-11-30 07:08] LABS: African American GFR (CKD) >90 (>60 ml/min/1.73 sqM); Anion Gap 9 mmol/L; Blood Urea Nitrogen 14 mg/dL (9-20); Calcium 8.3 mg/dL (8.4-10.2); Carbon Dioxide 25 mmol/L (22-30); Chloride 105 mmol/L (98-107); Glucose 143 mg/dL (74-99); Non-African American GFR(CKD) 89 (>60 ml/min/1.73 sqM); Potassium 3.8 mmol/L (3.5-5.1); Sodium 139 mmol/L (137-145)
[2024-11-30] MEDS: amLODIPine 10 MG TAB PO SCH (08:36)
[2024-11-30] MEDS: ATORVASTATIN 40 MG TAB PO SCH (08:36)
[2024-11-30] MEDS: CLOPIDOGREL 75 MG TAB PO SCH (08:36)
[2024-11-30] MEDS: ASPIRIN 81 MG PO SCH (08:36)
[2024-11-30] MEDS: FERROUS SULFATE 325 MG TAB PO SCH (08:36)
[2024-11-30] MEDS: FAMOTIDINE 20 MG TAB PO SCH (08:36)
[2024-11-30] MEDS: LOSARTAN 50 MG TAB PO SCH (08:36)
[2024-11-30 08:44] VITALS: RESP 17
[2024-11-30] MEDS ORDERED: [UNRECOGNIZED DRUG - OTHER] PO SCH (09:00)
--- NOTE | 2024-11-30 10:19 | P.PN ---
Subjective Progress Note Date: 11/30/24 Patient seen and examined at bedside. He states that he is throat pain has improved significantly, swelling is down, he does not have any other active complaints, had a restful sleep overnight. His vital signs remained stable. Lab work showed stable hemoglobin and unremarkable BMP, blood glucose is well-controlled. Patient is medically cleared for discharge Vital signs reviewed General: nontoxic, no distress, appears at stated age Derm: warm, dry, Pressure ulcers bilateral buttocks, sacral, bilateral ankles and left heel Head: atraumatic, normocephalic, symmetric Eyes: EOMI, no lid lag, anicteric sclera, pupils equal round reactive to light ENT: Nose and ears atraumatic Neck: No thyromegaly, supple, left-sided neck dressing with mild surrounding swelling, clean, dry Mouth: no lip lesion, mucus membranes moist Cardiovascular: S1S2 reg, no murmur, no edema Lungs: clear to auscultation bilateral, no rhonchi, no rales, no wheeze, no accessory muscle use Abdominal: soft, nontender to palpation, no guarding, no appreciable organomegaly Ext: no gross muscle atrophy, muscle strength muscle strength 5 out of 5 in all 4 extremities, no contractures Neuro: CN II-XII grossly intact, left-sided residual deficits Psych: Alert, oriented, appropriate affect Assessment/Plan: CAD status post CABG CVA with left-sided residual deficits History of bilateral carotid artery stenosis Hypertension Hyperlipidemia -Home medications reconciled -Continue daily medication regimen with aspirin 81 mg daily, amlodipine 10 mg daily, atorvastatin 40 mg nightly, carvedilol 3.125 mg twice daily, Plavix 75 mg daily, and losartan 50 mg daily. Diabetes mellitus with hyperglycemia -Continue glycemic protocol with NovoLog sliding scale. Bilateral carotid artery stenosis s/p elective left internal carotid artery TCAR 11/29/2024 -Your postop management, VTE prophylaxis pain control -Patient is on aspirin 81 mg daily, clopidogrel 75 mg daily, will continue his home atorvastatin 40 mg daily -GI prophylaxis with Pepcid 20 mg daily -Medically stable for discharge Chronic anemia: Continue home iron 325 mg daily Pressure ulcers, present on admission -Pressure ulcers to sacral, bilateral buttock/right greater than left early stage III pressure ulcers, with minimal eschar on left and Unstageable pressure ulcers on right and left ankles and left heel. Objective - Vital Signs Vital signs: Vital Signs Temp 97.9 F 11/30/24 08:32 Pulse 62 11/30/24 08:32 Resp 17 11/30/24 08:32 BP 149/53 11/30/24 08:32 Pulse Ox 98 11/30/24 08:32 FiO2 Intake & Output 11/29/24 11/30/24 11/30/24 18:59 06:59 18:59 Intake Total 1513 20 Output Total 800 Balance 1513 -800 20 Weight 60.5 kg Intake: IV 1273 20 Invasive Line 1 10 Invasive Line 2 10 Oral 240 Output: Urine 800 Other: Voiding Method External Catheter External Catheter - Labs CBC & Chem 7: 11/30/24 06:26 11/30/24 06:26 Labs: Abnormal Lab Results - Last 24 Hours (Table) 11/29/24 11/29/24 11/29/24 Range/Units 11:19 16:41 20:16 RBC (4.30-5.90) m/uL Hgb (13.0-17.5) gm/dL Hct (39.0-53.0) % Lymphocytes # (1.0-4.8) k/uL Glucose (74-99) mg/dL POC Glucose (mg/dL) 200 H 163 H 161 H (70-110) mg/dL Calcium (8.4-10.2) mg/dL 11/30/24 11/30/24 11/30/24 Range/Units 05:58 06:26 06:26 RBC 3.53 L (4.30-5.90) m/uL Hgb 11.1 L (13.0-17.5) gm/dL Hct 34.5 L (39.0-53.0) % Lymphocytes # 0.9 L (1.0-4.8) k/uL Glucose 143 H (74-99) mg/dL POC Glucose (mg/dL) 150 H (70-110) mg/dL Calcium 8.3 L (8.4-10.2) mg/dL
[2024-11-30 11:34] LABS: Glucose,Whole Blood 151 mg/dL (70-110)
--- NOTE | 2024-11-30 11:45 | P.DS ---
Providers Date of admission: 11/29/24 05:41 Attending physician: Venkat Ho DO Consults: 11/29/24 09:08 Consult Physician Routine Consulting Provider: Deb Costa Consult Reason/Comments: medical management Do you want consulting provider notified?: Yes Primary care physician: Ninoska Collado MD Hospital Course: Patient is an 84-year-old male who presented yesterday for a left transcarotid artery revascularization and stent. Has been convalescing well without any significant issue or concern. He is found to be in stable and suitable condition for discharge home Patient Condition at Discharge: Fair Plan - Discharge Summary Discharge Rx Participant: No New Discharge Prescriptions: No Action Ferrous Sulfate [Iron (65 MG Elemental)] 325 mg PO DAILY metFORMIN HCL [Glucophage] 1,000 mg PO BID-W/MEALS Cystex Cranberry Supplements 1 cap PO DAILY Lidocaine 5% Patch [Lidoderm 5% Patch] 1 patch TOPICAL DAILY carvediloL [Coreg] 3.125 mg PO BID Losartan [Cozaar] 50 mg PO DAILY #30 tab amLODIPine [Norvasc] 10 mg PO DAILY #30 tab 24 Hour Allergy 1 tab PO DAILY Atorvastatin [Lipitor] 40 mg PO DAILY Vit C/E/Zn/Coppr/Lutein/Zeaxan [Preservision Areds 2 Softgel] 1 cap PO BID glipiZIDE XL [Glucotrol XL] 5 mg PO AC-BRKFST Insulin Glargine (Lantus) [Lantus Vial] 3 unit SQ DAILY PRN PRN Reason: glucose >250 Ketoconazole 2% Shampoo [Nizoral] 1 applic TOPICAL Q48H Furosemide [Lasix] 20 mg PO DAILY PRN PRN Reason: Edema Fluocinolone/Shower Cap [Fluocinolone 0.01% Scalp Oil] 1 applic TOPICAL DAILY PRN PRN Reason: flare ups Clopidogrel [Plavix] 75 mg PO DAILY #30 tab Aspirin EC [Ecotrin Low Dose] 81 mg PO DAILY #30 tab Rosuvastatin Calcium 10 mg PO DAILY Famotidine [Pepcid] 20 mg PO DAILY Discharge Medication List Ferrous Sulfate [Iron (65 MG Elemental)] 325 mg PO DAILY 12/09/19 [History] metFORMIN HCL [Glucophage] 1,000 mg PO BID-W/MEALS 12/09/19 [History] Cystex Cranberry Supplements 1 cap PO DAILY 09/02/24 [History] Fluocinolone/Shower Cap [Fluocinolone 0.01% Scalp Oil] 1 applic TOPICAL DAILY PRN 09/02/24 [History] Furosemide [Lasix] 20 mg PO DAILY PRN 09/02/24 [History] Insulin Glargine (Lantus) [Lantus Vial] 3 unit SQ DAILY PRN 09/02/24 [History] Ketoconazole 2% Shampoo [Nizoral] 1 applic TOPICAL Q48H 09/02/24 [History] Lidocaine 5% Patch [Lidoderm 5% Patch] 1 patch TOPICAL DAILY 09/02/24 [History] Vit C/E/Zn/Coppr/Lutein/Zeaxan [Preservision Areds 2 Softgel] 1 cap PO BID 09/02/24 [History] carvediloL [Coreg] 3.125 mg PO BID 09/02/24 [History] glipiZIDE XL [Glucotrol XL] 5 mg PO AC-BRKFST 09/02/24 [History] Aspirin EC [Ecotrin Low Dose] 81 mg PO DAILY #30 tab 09/09/24 [Rx] Clopidogrel [Plavix] 75 mg PO DAILY #30 tab 09/09/24 [Rx] Losartan [Cozaar] 50 mg PO DAILY #30 tab 09/09/24 [Rx] amLODIPine [Norvasc] 10 mg PO DAILY #30 tab 09/09/24 [Rx] 24 Hour Allergy 1 tab PO DAILY 11/24/24 [History] Rosuvastatin Calcium 10 mg PO DAILY 11/24/24 [History] Atorvastatin [Lipitor] 40 mg PO DAILY 11/29/24 [History] Famotidine [Pepcid] 20 mg PO DAILY 11/29/24 [History] Follow up Appointment(s)/Referral(s): Venkat Ho DO [STAFF PHYSICIAN] - 12/20/24 9:30 am (FOLLOW UP APPOINTMENT WAS ALREADY MADE WITH DR. HO ON DECEMBER 20, 2024 AT 0930. ) Activity/Diet/Wound Care/Special Instructions: Continue medications as ordered including aspirin and Plavix. May shower starting tomorrow. May remove dressing. Resume regular activity. Discharge Disposition: HOME SELF-CARE
[2024-11-30 12:04] VITALS: BP 131/56; PULSE 69; TEMP 98
== END 2024-11-30 13:08 | disposition home or self-care (01) | DRG 34 ==
LOC: 2ORMAIN 05:41 → 3SCARD 11:55
PROVIDERS: ADMIT Surgery; ATTEND Surgery
PROC: 037L3DZ Dilation of Left Internal Carotid Artery with Intraluminal Device, Percutaneous Approach (ICD-10-PCS; principal; 2024-11-29 07:30)
DX: I65.23 Occlusion and stenosis of bilateral carotid arteries (principal); L89.153 Pressure ulcer of sacral region, stage 3; L89.313 Pressure ulcer of right buttock, stage 3; L89.323 Pressure ulcer of left buttock, stage 3; I69.354 Hemiplegia and hemiparesis following cerebral infarction affecting left non-dominant side; E11.65 Type 2 diabetes mellitus with hyperglycemia; I10 Essential (primary) hypertension; D64.9 Anemia, unspecified; L89.520 Pressure ulcer of left ankle, unstageable; L89.510 Pressure ulcer of right ankle, unstageable; Z79.4 Long term (current) use of insulin; L89.620 Pressure ulcer of left heel, unstageable; I25.10 Atherosclerotic heart disease of native coronary artery without angina pectoris; E78.5 Hyperlipidemia, unspecified; Z95.1 Presence of aortocoronary bypass graft; Z79.84 Long term (current) use of oral hypoglycemic drugs; Z79.899 Other long term (current) drug therapy; Z86.718 Personal history of other venous thrombosis and embolism; Z79.82 Long term (current) use of aspirin; Z79.02 Long term (current) use of antithrombotics/antiplatelets
CPT/HCPCS: 37215; 76937; 80048; 85025; 86850; 86900; 86901